=== PATIENT | male | born 1940 | race Caucasian/White ===

== ENCOUNTER 2023-04-16 13:43 | Outpatient (OUT) | payer MEDICARE, OTHER, SELFPAY ==
--- NOTE | 2023-04-16 14:00 | XR_ITS ---
The [address] [address] Patient Name: KANG BRADY MRN: [id number] date: 1940 Sex: M Assigned Patient Location: Current Patient Location: [facility] Accession/Order Number: [id number] Exam Date: 04/16/2023 14:11 Report Date: 04/17/2023 01:40 At the request of: SALOME HILLS Procedure: XR abdomen 1V EXAM: XR abdomen 1V 04/16/2023 2:11 PM EDT OH001 CLINICAL STATEMENT: KIDNEY STONE COMPARISON: 04/18/2022 TECHNIQUE: Single abdominal radiograph is submitted. FINDINGS: There are right renal calculi measuring up to 4 mm. No left-sided renal calculus. Calcified phleboliths in the pelvis. The small bowel and colon are not distended. There is a nonobstructive bowel gas pattern. There is no intraperitoneal free air. There is no abnormal calcification or organomegaly detected. Atherosclerotic arteriovascular calcifications. Multilevel degenerative changes of the lumbosacral spine. IMPRESSION: Right renal calculi measuring up to 4 mm. No left-sided renal calculus. No evidence of bowel obstruction or free intraperitoneal air. Electronically authenticated by: ROMINA SCHWARTZ Date: 04/17/2023 01:40
== END 2023-04-16 13:44 ==
LOC: RAD 13:50
PROVIDERS: PCP Internal Medicine; Visit Provider Urology
DX: N20.0 Calculus of kidney (principal); N40.1 Benign prostatic hyperplasia with lower urinary tract symptoms; N52.9 Male erectile dysfunction, unspecified; N13.9 Obstructive and reflux uropathy, unspecified
CPT/HCPCS: 74018

== ENCOUNTER 2023-05-12 08:44 | Outpatient (OUT) | payer MEDICARE, OTHER, SELFPAY ==
--- NOTE | 2023-05-12 08:47 | XR_ITS ---
The [address] [address] Patient Name: KANG BRADY MRN: [id number] date: 1940 Sex: M Assigned Patient Location: [facility] Current Patient Location: [facility] Accession/Order Number: [id number] Exam Date: 05/12/2023 09:40 Report Date: 05/12/2023 09:58 At the request of: SALOME HILLS Procedure: XR chest 2V XR chest 2V COMPARISON: None. CLINICAL HISTORY: CAD TECHNIQUE: 2 views FINDINGS: There is a normal cardiac and mediastinal contour. The patient is poststernotomy. The pulmonary vascular pattern is normal. The lungs are clear and the pleural margins are sharp. Moderate hiatal hernia. There are no significant skeletal abnormalities. IMPRESSION: NO ACUTE RADIOGRAPHIC FINDINGS. Electronically authenticated by: MANDEEP DANGELO Date: 05/12/2023 09:58
--- NOTE | 2023-05-12 08:47 | ECG_ITS ---
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
[2023-05-12 09:50] LABS: Basophils Percent Auto 0.5 % (0.2-2.0); Eosinophils Absolute Auto 0.5 10^3/uL (0.0-0.7); Eosinophils Percent Auto 8.4 % (0.9-7.0); Hematocrit 45.8 % (42.0-54.0); Hemoglobin 14.4 g/dL (14.0-18.0); Immature Granulocytes Abs Auto 0.03 10^3/uL (0.00-0.03); Immature Granulocytes Pct Auto 0.5 % (0.0-0.5); Lymphocytes Absolute Auto 1.1 10^3/uL (1.2-3.8); Lymphocytes Percent Auto 19.9 % (20.5-60.0); Mean Corpuscular HGB Conc 31.4 g/dL (29.9-35.2); Mean Corpuscular Hemoglobin 30.1 pg (25.9-34.0); Mean Corpuscular Volume 95.8 fL (80.0-94.0); Monocytes Absolute Auto 0.6 10^3/uL (0.3-0.8); Neutrophils Absolute Auto 3.3 10^3/uL (1.4-6.5); Neutrophils Percent Auto 60.7 % (43.0-75.0); Platelet Count 174 10^3/uL (150-450); Red Blood Count 4.78 10^6/uL (4.70-6.10); Red Cell Distribution Width 13.7 % (11.0-15.0); White Blood Count 5.5 10^3/uL (4.0-11.0)
--- NOTE | 2023-05-12 09:53 | PM.PRESUREVA ---
History of Present Illness History of Present Illness Chief complaint: Right Kidney Stone Narrative: Patient presents for preadmission testing. The patient reports a long history of kidney stones. He states he had a yearly follow-up with Dr. Loya a few weeks ago and it was determined that he had a right-sided kidney stone. The patient states he has no urinary complaints, denies dysuria, hematuria, flank pain, or any other complaints. Review of Systems ROS Narrative REVIEW OF SYSTEMS: Negative except as stated in HPI, ten or more systems reviewed. Constitutional: No fever , chills, weakness ENT: No sore throat or epistaxis Cardiovascular: No edema, chest pain, palpitations, or activity intolerance Respiratory: No shortness of breath, cough, or wheezing Musculoskeletal: No joint pain or swelling Gastrointestinal: No abdominal pain, constipation, diarrhea, or vomiting Genitourinary: No dysuria or hematuria Neurological: No numbness, tingling, weakness, or headache Psychiatric: No mood changes PFSH PFSH Medical History (Updated 05/12/23 @ 09:25 by Bijal Pa NP) Surgical History (Updated 05/12/23 @ 09:25 by Bijal Pa NP) Family History (Updated 05/12/23 @ 09:25 by Bijal Pa NP) Other Family history of colon cancer Family history of heart disease Family history of leukemia Family history of myocardial infarction Family history of stroke Social History (Updated 05/12/23 @ 09:19 by Bijal Pa NP) Within the past year, how often did you have a drink containing alcohol: monthly or less Smoking status: Former smoker Non-prescribed substance use: denies use Highest level of school completed/degree received: high school graduate Meds Home Medications and Allergies Home Medications Medication Instructions Recorded Confirmed Type aspirin 81 mg tablet,delayed 81 mg PO DAILY 05/12/23 05/12/23 History release (Adult Aspirin Regimen) atorvastatin 10 mg tablet 10 mg PO QDAY 05/12/23 05/12/23 History cholecalciferol (vitamin D3) 25 25 mcg PO DAILY 05/12/23 05/12/23 History mcg (1,000 unit) capsule citalopram 20 mg tablet 20 mg PO QDAY 05/12/23 05/12/23 History clopidogrel 75 mg tablet 75 mg PO QDAY 05/12/23 05/12/23 History finasteride 5 mg tablet 5 mg PO QDAY 05/12/23 05/12/23 History talat (Zingiber officinalis) 250 250 mg PO DAILY 05/12/23 05/12/23 History mg capsule (talat extract) hydrochlorothiazide 12.5 mg capsule 12.5 mg PO QDAY 05/12/23 05/12/23 History melatonin 3 mg capsule 3 mg PO DAILY 05/12/23 05/12/23 History metoprolol succinate 25 mg 12.5 mg PO Q12H 05/12/23 05/12/23 History tablet,extended release 24 hr tamsulosin 0.4 mg capsule (Flomax) 0.4 mg PO DAILY 05/12/23 05/12/23 History Allergies Allergy/AdvReac Type Severity Reaction Status Date / Time No Known Drug Allergies Allergy Verified 05/12/23 09:13 Exam Narrative Exam Narrative: Constitutional: Awake, alert, comfortable, well-appearing, nontoxic, interactive, vital signs as charted Head: Normocephalic, atraumatic Neck: Supple, normal appearance, normal range of motion, no meningeal signs, no lymphadenopathy Respiratory: No respiratory distress, breath sounds clear Cardiovascular: Regular rate and rhythm, strong and regular heart tones Abdomen: Nontender, normal bowel sounds, soft, no CVA tenderness Musculoskeletal: Normal gait, no swelling or edema Skin: No rashes or induration, no lesions, only visible skin inspected Neuro: No neurological deficits, normal sensation Psychiatric: Oriented ?3, normal affect Assessment and Plan Assessment and Plan (1) Kidney stones: Plan Right ESWL scheduled with Dr. Loya 05/22/2023.
[2023-05-12 10:05] LABS: INR 1.06; Prothrombin Time 11.2 sec (9.0-11.6)
[2023-05-12 10:10] LABS: Anion Gap 9.2; BUN Creatinine Ratio 16.8; Calcium 9.6 mg/dL (8.5-10.1); Carbon Dioxide 29.5 mmol/L (21.0-32.0); Chloride 105 mmol/L (98-107); Estimated GFR (African America >60 (>=60); Estimated GFR (Non-African Ame >60 (>=60); Glucose 125 mg/dL (74-106); Potassium 4.7 mmol/L (3.5-5.1); Sodium 139 mmol/L (136-145)
== END 2023-05-12 08:45 | disposition home or self-care (01) ==
LOC: PST 08:44
PROVIDERS: PCP Internal Medicine; Visit Provider Urology
DX: Z01.810 Encounter for preprocedural cardiovascular examination (principal); Z01.812 Encounter for preprocedural laboratory examination; Z01.818 Encounter for other preprocedural examination; N20.0 Calculus of kidney; N40.0 Benign prostatic hyperplasia without lower urinary tract symptoms; E78.5 Hyperlipidemia, unspecified; I10 Essential (primary) hypertension; I25.10 Atherosclerotic heart disease of native coronary artery without angina pectoris; Z79.01 Long term (current) use of anticoagulants
CPT/HCPCS: 36415; 71046; 80048; 85025; 85610; 85730; 93005; G0463

== ENCOUNTER 2023-05-22 08:08 | Day surgery (SDC) | payer MEDICARE, OTHER, SELFPAY ==
[2023-05-12 09:21] VITALS: BP 137/73; PULSE 80; RESP 18; TEMP 36.2; O2SAT 97; BMI 29.6
[2023-05-22] VITALS (15 sets, daily range): BP systolic 73–130; BP diastolic 53–80; PULSE 58–75; RESP 10–23; TEMP 36.2; O2SAT 91–97; BMI 28.3
--- NOTE | 2023-05-22 08:00 | XR_ITS ---
The [address] [address] Patient Name: KANG BRADY MRN: [id number] date: 1940 Sex: M Assigned Patient Location: [facility] Current Patient Location: [facility] Accession/Order Number: [id number] Exam Date: 05/22/2023 08:18 Report Date: 05/22/2023 10:05 At the request of: SALOME HILLS Procedure: XR abdomen 1V EXAM: XR abdomen 1V HISTORY: kidney stone COMPARISON: None. TECHNIQUE: AP view of the abdomen. FINDINGS: Nonobstructive bowel gas pattern is noted. There punctate right renal calculi. The osseous structures are intact. XR/XR abdomen 1V IMPRESSION: Right nephrolithiasis. Electronically authenticated by: ELIAZAR KOVACS Date: 05/22/2023 10:05
[2023-05-22] MEDS: LACTATED RINGER'S SOLUTION 1,000 ML 50 ML IV (08:55)
[2023-05-22] MEDS: CEFAZOLIN SODIUM/DEXTROSE,ISO 1 GM/50 ML IV.SOLN IV (08:57)
--- NOTE | 2023-05-22 09:46 | PM.URSON ---
Urology Surgery Operative Note Operative Note Procedure Date: 05/22/23 Time Out Performed: yes Pre-op Diagnosis: right nephrolithiasis nonobstructing Post-op Diagnosis: same Procedures performed: #1. Right ESWL. Anesthesia: other (Gen. by LMA) Primary Surgeon: Puma Loya Complications: none Estimated blood loss (mL): 0 Findings: right lower pole calculi Specimens: none Drains: none Indications for Procedures: this gentleman has recurrent right nephrolithiasis. Ayush now pressents for right ESWL. He has signed an informed consent after all the risks were explained to him. Some of these risks include bleeding, perinephric hematoma, infection and anesthesia to name a few. Detailed description of Procedure: the patient was brought to the operating room and placed on the [employer] electromagnetic lithotripsy treatment table in the supine position. SCDs were placed on his lower extremities and turned on and functioning during the entire case. Timeout was done by all parties in the room. We all agreed upon the patient's identification and the planned procedures for this patient. Gen. anesthesia was administered via LMA. We then brought the treatment head to his right flank. While using fluoroscopy we identified stone in the right lower pole. This group of stones was lined up in the crosshairs. We then began applying shocks at power level II.0 and increased to a maximum of power level III.5. Intermittent fluoroscopy showed that the stones fragmented steadily. We applied a total of 3000 shocks to the right renal unit. Our last fluoroscopic image revealed no evidence of formed stone remaining. The procedure was then terminated. [facility] then [facility] and wheeled to PACU in stable condition.
--- NOTE | 2023-05-22 10:52 | PC.NURSE ---
Denies urge to void
--- NOTE | 2023-05-22 11:47 | PC.NURSE ---
URINE STRAINED, NO STONE FRAGMENT FOUND
== END 2023-05-22 11:30 | disposition home or self-care (01) ==
PROVIDERS: PCP Internal Medicine; Visit Provider Urology
PROC: (CPT 50590; principal; 2023-05-22 09:20)
DX: N20.0 Calculus of kidney (principal); N40.0 Benign prostatic hyperplasia without lower urinary tract symptoms; E78.5 Hyperlipidemia, unspecified; I10 Essential (primary) hypertension; Z79.01 Long term (current) use of anticoagulants; I25.10 Atherosclerotic heart disease of native coronary artery without angina pectoris; K21.9 Gastro-esophageal reflux disease without esophagitis; Z95.1 Presence of aortocoronary bypass graft; Z95.5 Presence of coronary angioplasty implant and graft; Z87.891 Personal history of nicotine dependence; Z79.82 Long term (current) use of aspirin; Z79.899 Other long term (current) drug therapy; N40.1 Benign prostatic hyperplasia with lower urinary tract symptoms
CPT/HCPCS: 50590; 74018; J2704

== ENCOUNTER 2023-07-04 09:54 | Outpatient (OUT) | payer MEDICARE, OTHER, SELFPAY ==
--- NOTE | 2023-07-04 10:35 | CA_ITS ---
Patient: KANG BRADY Exam Date: 07/04/2023 : 1940 Gender:M Ordering : DR SUMAN DAVIS M.D. Admission #: [id number] Family : DR Timbo Pittman.French Order #: [id number] CLICK HERE TO VIEW EXAM ECHOCARDIOGRAM REPORT PROCEDURE: CA ECHO DOPPLER COMPLETE INDICATIONS: Mitral valve stenosis, Aortic valve stenosis (bioprosthetic valve), CABGx1, hypertension COMPARISON: None. DESCRIPTION: COMPLETE ECHOCARDIOGRAM Real-time transthoracic echocardiography with 2D, M-mode, spectral and color flow Doppler performed. QUALITY: Technical quality was good. LEFT VENTRICLE: Normal chamber size. Moderate concentric left ventricular hypertrophy. LV EF: Global left ventricular systolic function is normal; visually estimated ejection fraction is 60 to 65%. No significant wall motion abnormalities. DIASTOLIC: Grade 2, moderate diastolic dysfunction. ATRIAL SEPTUM: Visually appears intact. LEFT ATRIUM: Mild dilatation. RIGHT ATRIUM: Normal chamber size. RIGHT VENTRICLE: Normal chamber size. Normal right ventricular systolic function. TRICUSPID VALVE: Normal mobility and thickness. No stenosis with mild regurgitation. No evidence of pulmonary hypertension. RVSP 23 mmHg MITRAL VALVE: Moderately thickened with decreased mobility. Mild mitral valve stenosis. E/E' suggests volume overload state. Moderate mitral annular calcification. Mild mitral regurgitation. AORTIC VALVE: Bio-Prosthetic valve appears well seated in the aortic position with abnormal Doppler flow. Valve leaflets appear calcified. Doppler velocity suggests mild aortic valve stenosis. DVI 0.4, AURELIA 1.8 cm2. No aortic regurgitation. AORTIC ROOT: Normal diameter and appearance. PULMONIC VALVE: Normal thickness and mobility. No stenosis. Trivial regurgitation. PERICARDIUM: No evidence of pericardial effusion. IVC: Collapses with inspirations. CONCLUSION: 1. Global left ventricular systolic function is normal; visually estimated ejection fraction 60 to 65% 2. Moderate left ventricular hypertrophy 3. Grade 2, moderate diastolic dysfunction 4. The right ventricle is normal in size and systolic function 5. The left atrium is mildly dilated 6. Mild tricuspid regurgitation 7. Mild mitral valve stenosis, mild mitral valve regurgitation 8. A bioprosthetic aortic valve is seen; mild bioprosthetic aortic valve stenosis 9. E/E' suggests volume overload state Adult Echocardiography Procedure Report Left Ventricle LVEDD (3.7 - 5.6 cm): 4.40 cm LVESD (2.2 - 4.0 cm): 2.06 cm LVIVS thickness (0.6 - 1.2 cm): 1.57 cm LVPW thickness (0.5 - 1.0 cm): 1.18 cm e': 0.03 m/s E - e': 34.63 LVOT Max Gradient: 3.93 mm[Hg] LVOT Area (cm2): 0.99 m/s Peak Velocity (LVOT): 0.99 m/s Mean Velocity (LVOT): 0.71 m/s LVOT Diameter 2.16 cm Left Atrium LA Volume Index (2D A2C): 40.60 ml/m2 Left Atrium Systolic Dimension: 4.07 cm Mitral Valve MV E to A Ratio: 0.78 Mitral Valve A-Wave Peak Velocity: 1.48 m/s Mitral Valve E-Wave Peak Velocity: 1.16 m/s Right Ventricle Aorta AO Root Diam: 3.19 cm Ascending Ao Diam: 3.24 cm Aortic Valve AoV Area (Peak Brady): 1.64 cm2, 1.64 cm2 AoV Area (VTI): 1.80 cm2, 1.80 cm2 Peak Velocity(Antegrade Flow): 2.21 m/s Peak Gradient(Antegrade Flow): 19.53 mm[Hg] Mean Velocity(Antegrade Flow): 1.44 m/s Mean Gradient(Antegrade Flow): 9.80 mm[Hg] Velocity Time Integral: 46.97 cm Tricuspid Valve Peak Velocity (Regurgitant Flow): 2.24 m/s, 2.22 m/s, 2.43 m/s Pulmonic Valve Mean Gradient: 1.74 mm[Hg], 1.67 mm[Hg] Mean Velocity: 0.62 m/s, 0.60 m/s Peak Velocity: 0.91 m/s, 0.80 m/s Peak Gradient: 2.59 mm[Hg], 3.55 mm[Hg], 3.08 mm[Hg] Right Atrium Right Atrium Systolic Pressure: 46.26 ml, 46.26 ml Dictated by: Suman Davis M.D. on 07/04/2023 at 15:06 Approved by: Suman Davis M.D. on 07/04/2023 at 15:13
== END 2023-07-04 09:55 | disposition home or self-care (01) ==
LOC: CARD 09:56
PROVIDERS: PCP Internal Medicine; Visit Provider Internal Medicine Interventional Cardiology
DX: I08.0 Rheumatic disorders of both mitral and aortic valves (principal)
CPT/HCPCS: 93306

== ENCOUNTER 2023-07-21 10:59 | Outpatient (OUT) | payer MEDICARE, OTHER, SELFPAY ==
--- NOTE | 2023-07-21 11:15 | XR_ITS ---
The [address] [address] Patient Name: KANG BRADY MRN: [id number] date: 1940 Sex: M Assigned Patient Location: LAB Current Patient Location: LAB Accession/Order Number: [id number] Exam Date: 07/21/2023 11:10 Report Date: 07/21/2023 12:32 At the request of: SALOME H[place]S Procedure: XR abdomen 1V EXAM: XR abdomen 1V HISTORY: Kidney Stone N20.0 COMPARISON: 05/22/2023 TECHNIQUE: AP view of the abdomen. FINDINGS: Nonobstructive bowel gas pattern is noted. Punctate right renal calculi. The osseous structures are intact. XR/XR abdomen 1V IMPRESSION: No significant change from the prior exam. Right punctate nephrolithiasis. Electronically authenticated by: ELIAZAR KOVACS Date: 07/21/2023 12:32
== END 2023-07-21 11:00 | disposition home or self-care (01) ==
LOC: LAB 11:01
PROVIDERS: PCP Internal Medicine; Visit Provider Urology
DX: N20.0 Calculus of kidney (principal)
CPT/HCPCS: 74018

== ENCOUNTER 2023-07-22 12:36 | Outpatient (OUT) | payer MEDICARE, OTHER, SELFPAY ==
[2023-07-22 12:54] LABS: Calcium Urine Random 9.1 mg/dL (5.1-21.0); Creatinine Urine Random 59.03 mg/dL (20.00-300.00); Sodium Urine Random 111 mmol/L (30-90)
[2023-07-22 12:55] LABS: Calcium 24 Hour Urine 195.7 mg/24hr (100.0-300.0); Sodium 24 Hour Urine 239 mmol/24h (40-220); Total Volume 24 Hour Urine 2150 mL/24hr
[2023-07-22 13:14] LABS: Calcium 9.2 mg/dL (8.5-10.1); Carbon Dioxide 29.7 mmol/L (21.0-32.0); Chloride 104 mmol/L (98-107); Estimated GFR (African America >60 (>=60); Estimated GFR (Non-African Ame 58 (>=60); Potassium 3.9 mmol/L (3.5-5.1); Sodium 138 mmol/L (136-145); Uric Acid 6.3 mg/dL (3.5-7.2)
[2023-07-23 08:16] LABS: Uric Acid, Urine 21.4 mg/dL (Not Estab.); Uric Acid,Urine 24hr 460.1 mg/24 hr (136.1-771.1)
[2023-07-23 12:09] LABS: Magnesium, U 3.5 mg/dL (Not Estab.); Magnesium,Urine 24hr 75.3 mg/24 hr (12.0-293.0); Phosphorus, Urine 36.6 mg/dL (Not Estab.); Phosphorus,Urine 24h 787 mg/24 hr (210-888)
[2023-07-23 14:10] LABS: PTH, Intact 29 pg/mL (15-65)
[2023-07-25 00:08] LABS: Citric Acid, U, 24hr 757 mg/24 hr (320-1240); Citric Acid, Urine 352 mg/L (Undefined)
[2023-07-25 17:14] LABS: Oxalates, Urine 9 mg/L (Undefined); Oxalates, Urine 24hr 19 mg/24 hr (7-44)
== END 2023-07-22 12:37 | disposition home or self-care (01) ==
LOC: LAB 12:36
PROVIDERS: PCP Internal Medicine; Visit Provider Urology
DX: N20.0 Calculus of kidney (principal)
CPT/HCPCS: 36415; 82310; 82340; 82374; 82435; 82507; 82565; 82570; 83735; 83945; 83970; 84105; 84132; 84295; 84300; 84520; 84550; 84560

== ENCOUNTER 2023-10-07 09:18 | Outpatient (OUT) | payer MEDICARE, OTHER, SELFPAY ==
--- NOTE | 2023-10-07 09:20 | MR_ITS ---
[address] [address] Patient Name: KANG BRADY MRN: [id number] date: 1940 Sex: M Assigned Patient Location: MRI Current Patient Location: MRI Accession/Order Number: [id number] Exam Date: 10/07/2023 09:42 Report Date: 10/07/2023 15:20 At the request of: JEIMY ABAD Procedure: MR lumbar spine wo con EXAM: MRI of the lumbar spine without IV gadolinium contrast. 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 No spinal canal mass, hematoma or fluid collection. Lumbar spine degenerative changes with grade 1 anterolisthesis of L5 on S1. Mild posterior disc bulge at the L2-L3 and L3-L4 levels. Small L4-5 and L5-S1 posterior disc protrusions. L4-5 degenerative disc space narrowing. Mild to moderate L3-L4 spinal canal stenosis. Mild L4-5 spinal canal stenosis. Mild left L5-S1 lateral recess stenosis. No other substantial spinal canal stenoses. Mild right L1-L2 and L2-L3 neural foraminal stenoses. Mild to moderate right L3-L4, L4-5 and L5-S1 neural foraminal stenoses. Mild left L1-L2 and L2-L3 neural foraminal stenoses. Mild to moderate left L3-L4 neural foraminal stenosis. Moderate left L4-5 neural foraminal stenosis. Severe left L5-S1 neural foraminal stenosis. Remainder unremarkable. MR/MR lumbar spine wo con IMPRESSION: 1. No acute lumbar spine abnormalities. 2. Mild to moderate L3-L4 spinal canal stenosis. 3. Severe left L5-S1 neural foraminal stenosis. 4. Moderate left L3-L4 and L4-5 neural foraminal stenoses. Electronically authenticated by: ANNEL MANCINI Date: 10/07/2023 15:20
== END 2023-10-07 09:19 | disposition home or self-care (01) ==
LOC: MRI 09:18
PROVIDERS: PCP Internal Medicine; Visit Provider Internal Medicine
DX: M47.16 Other spondylosis with myelopathy, lumbar region (principal); M21.372 Foot drop, left foot; M48.061 Spinal stenosis, lumbar region without neurogenic claudication; M48.07 Spinal stenosis, lumbosacral region
CPT/HCPCS: 72148

== ENCOUNTER 2023-12-26 08:33 | Outpatient (OUT) | payer MEDICARE, OTHER, SELFPAY ==
--- OUTSIDE RECORDS SUMMARY | 2023-12-26 08:40 | XMS_ITS | CCD ---
Author Name Unknown Address [address] [place] [address] Organization [facility] Care Team Providers Care Dementia Program Director Name Role Phone TIMBO BAIG Primary Care Physician DO Timbo Baig Primary Care Provider MD Jaylon Finnegan Attending Provider [phone] Niya Baker Unavailable Timbo Baig Unavailable JOVANNI, DR MUNSON Admitting Unavailable JOVANNI, DR MUNSON Attending Unavailable JOVANNI, DR MUNSON Primary Care Unavailable JOVANNI, DR MUNSON Consulting Unavailable JOVANNI, DR MUNSON Admitting Unavailable JOVANNI, DR MUNSON Attending Unavailable JOVANNI, DR MUNSON Primary Care Unavailable TITA JJ Admitting Unavailable PARVIZ, TITA Attending Unavailable JOVANNI, DR MUNSON Primary Care Unavailable TITA JJ Consulting Unavailable JOVANNI, DR MUNSON Admitting Unavailable JOVANNI, DR MUNSON Attending Unavailable JOVANNI, DR MUNSON Primary Care Unavailable JOVANNI, DR MUNSON Consulting Unavailable REINIER ., DR MCMAHON Admitting Unavailable REINIER ., DR MCMAHON Attending Unavailable JOVANNI, DR MUNSON Primary Care Unavailable REINIER ., DR MCMAHON Consulting Unavailable BEREA, DR IVY Jenkins Consulting Unavailable ANDERSON Ann Attending Provider DO Timbo Baig Primary Care Provider [phone] FREEMAN Baker Attending Provider Jaylon Finnegan Unavailable DO Timbo Baig Primary Care Provider [phone] FREEMAN Baker Attending Provider Niya Baker Admitting Unavailable Niya Baker Attending Unavailable Jovanni, Timbo Primary Care Unavailable Niya Baker Admitting Unavailable Niya Baker Attending Unavailable Timbo Baig Primary Care Unavailable Puma LOYA Attending Unavailable Puma LOYA Attending Unavailable Puma LOYA Attending Unavailable Puma LOYA Attending Unavailable ILENE DAVIS Attending Unavailable TITA JJ Attending Unavailable Allergies Allergy Classification Reported Allergen(s) Allergy Type Date of Onset Reaction(s) Facility (1 source) patient allergy list reviewed by nurse or physicia Propensity to adverse reactions Comment:Done [employer] Other (1 source) No Known Medication Allergies; Translations: [No Known Medication Allergies] Propensity to adverse reactions (disorder) [facility] Repository Medications Current Medications Medication Drug Class(es) Dates Sig (Normalized) Sig (Original) aspirin 81 mg oral tablet (12 sources) Platelet Aggregation Inhibitor, Nonsteroidal Anti-inflammatory Drug Start: 05-17-2019 take 1 mg by mouth once daily aspirin 81 mg oral tablet mg tab(s), Oral, Daily, Refills(s) 0 Start Date: 05/17/19 Status: Ordered take 1 tablet by sarah every twenty-four hours Aspirin 81 MG 1 tablet Orally Once a day Active atorvastatin 10 mg oral tablet (10 sources) HMG-CoA Reductase Inhibitor Start: 04-21-2023 atorvastatin 10 mg Tab Refills(s) 0 Start Date: 04/21/23 Status: Ordered citalopram 20 mg oral tablet (5 sources) Serotonin Reuptake Inhibitor Start: 05-17-2019 take 1 tablet by mouth once daily CeleXA 20 mg Tab 20 mg = 1 tab(s), Oral, Daily, Refills(s) 0, Depression Start Date: 05/17/19 Status: Ordered take 1 tablet by mouth every twe nty-four hours clopidogrel 75 mg oral tablet (14 sources) P2Y12 Platelet Inhibitor Start: 05-17-2019 take 1 tablet by mouth once daily Plavix 75 mg Tab 75 mg = 1 tab(s), Oral, Daily, Refills(s) 0, Blood Thinner Start Date: 05/17/19 Status: Ordered finasteride 5 mg oral tablet (5 sources) 5-alpha Reductase Inhibitor Start: 10-31-2021 take 1 tablet by mouth once daily finasteride 5 mg Tab 5 mg = 1 tab(s), Oral, Daily, # 90 tab(s), Refills(s) 3, Pharmacy: [facility], 152, cm, 04/19/22 10:18:00 EDT, Height/Length Dosing, 89.2, kg, 04/19/22 10:18:00 EDT, Weight Dosing Start Date: 02/12/23 Status: Ordered Finasteride Acti ve hydroCHLOROthiazide 12.5 mg oral capsule (13 sources) Thiazide Diuretic Start: 08-25-2023 take 1 capsule by mouth once daily hydrochlorothiazide 12.5 mg Cap 12.5 mg = 1 cap(s), Oral, Daily, # 90 cap(s), Refills(s) 3, Pharmacy: [facility], 178, cm, 08/25/23 12:26:00 EDT, Height/Length Dosing, 90, kg, 08/25/23 12:26:00 EDT, Weight Dosing Start Date: 08/25/23 Status: Ordered Start: 12-28-2021 take 1 capsule by mo [facility] once daily hydrochlorothiazide 12.5 mg Cap 12.5 mg = 1 cap(s), Oral, Daily, # 90 cap(s), Refills(s) 3, Pharmacy: [facility], 152, cm, 08/27/21 10:12:00 EDT, Height/Length Dosing, 89, kg, 08/27/21 10:12:00 EDT, Weight Dosing Start Date: 12/28/21 Status: Ordered Start: 10-31-2021 take 12.5 mg by mout h once daily Hydrochlorothiazide Active 12.5 MG PO Daily October 31, 2021 1:00am metoprolol tartrate 25 mg oral tablet (13 sources) beta-Adrenergic Marilyn Start: 10-31-2021 take 25 mg by mouth once daily Metoprolol Tartrate Active 25 MG PO Daily October 31, 2021 1:00am Start: 05-17-2019 metoprolol 25 mg ER Tab 12.5 mg = 0.5 tab(s), Oral, BID, Refills(s) 0, High blood pressure Start Date: 05/17/19 Status: Ordered take 1 tablet by sarah once daily Metoprolol Succinate ER 25 MG 1 tablet Orally Once a day Active Metoprolol Tartr ate 25 MG TAKE 1/2 TABLET TWICE A DAY for 90 Active Multi Vitamin+ (2 sources) Start: 12-20-2019 Multi Vitamin+ Refill(s) 0 Start Date: 12/20/19 Status: Ordered simvastatin 20 mg oral tablet (4 sources) HMG-CoA Reductase Inhibitor Start: 05-17-2019 take 20 mg by mouth at bedtime Simvastatin Active 20 MG PO bedtime October 31, 2021 1:00am take 1 tablet by mouth every twe nty-four hours tamsulosin hydrochloride 0.4 mg oral capsule (3 sources) alpha-Adrenergic Marilyn Start: 08-25-2023 take 1 capsule by mouth once daily tamsulosin 0.4 mg Cap 0.4 mg = 1 cap(s), Oral, Daily, # 90 cap(s), Refills(s) 3, Pharmacy: [facility], 178, cm, 08/25/23 12:26:00 EDT, Height/Length Dosing, 90, kg, 08/25/23 12:26:00 EDT, Weight Dosing Start Date: 08/25/23 Status: Ordered take 1 capsule by mouth every tw enty-four hours Problems Active Problems Problem Classification Problem Date Documented Date Episodic/Chronic Acquired foot deformities (3 sources) Foot drop, left foot Episodic Adjustment disorders (5 sources) 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; Translations: [Mixed disorders as reaction to stress] Onset: 09-15-2018 Chronic Calculus of urinary tract (20 sources) Kidney stone; Translations: [Calculus of kidney] Onset: 07-22-2016 Episodic Congestive heart failure; nonhypertensive (2 sources) Acute on chronic diastolic (congestive) heart failure; Translations: [Acute on chronic diastolic (congestive) heart failure] Onset: 12-17-2023 Chronic Coronary atherosclerosis and other heart disease (20 sources) Coronary arteriosclerosis; Translations: [Atherosclerotic heart disease of platinum coronary artery without angina pectoris] Onset: 09-15-2018 05-17-2019 Chronic Coronary atherosclerosis and other heart disease (1 source) Coronary atherosclerosis and other heart disease; Translations: [Atherosclerosis of platinum arteries of extremities with intermittent claudication, bilateral legs] Onset: 09-04-2023 Disorders of lipid metabolism (20 sources) Pure hypercholesterolemia; Translations: [Pure hypercholesterolemia, unspecified] Onset: 09-15-2018 Chronic Diverticulosis and diverticulitis (5 sources) Diverticulitis of colon; Translations: [Diverticulitis of intestine, part unspecified, without perforation or abscess without bleeding] Onset: 09-15-2018 Chronic Esophageal disorders (2 sources) Gastroesophageal reflux disease 05-17-2019 Chronic Genitourinary symptoms and ill-defined conditions (20 sources) Delay when starting to pass urine; Translations: [Increased frequency of urination] Onset: 07-22-2016 Resolved: 04-16-2019 05-17-2019 Episodic Heart valve disorders (20 sources) History of aortic valve replacement; Translations: [Presence of prosthetic heart valve] Onset: 07-09-2022 Chronic Hyperplasia of prostate (20 sources) Benign prostatic hypertrophy with outflow obstruction; Translations: [Benign prostatic hyperplasia with lower urinary tract symptoms] Onset: 10-27-2015 Chronic Miscellaneous mental health disorders (11 sources) Male erectile disorder; Translations: [Erectile dysfunction] Onset: 04-19-2022 Chronic Mood disorders (18 sources) Mild recurrent major depression; Translations: [Major depressive disorder, recurrent, mild] Onset: 09-18-2018 Chronic Occlusion or stenosis of precerebral arteries (20 sources) Bilateral stenosis of carotid arteries; Translations: [Occlusion and stenosis of bilateral carotid arteries] Onset: 09-18-2018 Resolved: 04-29-2022 Chronic Other aftercare (9 sources) H/O: high risk medication; Translations: [Other residential (current) drug therapy] Episodic Other aftercare (5 sources) Long-term current use of drug therapy; Translations: [Other residential (current) drug therapy] Episodic Other and unspecified benign neoplasm (6 sources) Benign neoplasm of colon; Translations: [Benign neoplasm of sigmoid colon] Episodic Other and unspecified benign neoplasm (3 sources) Benign neoplasm of sigmoid colon; Translations: [Adenomatous polyp of sigmoid colon] Episodic Other and unspecified benign neoplasm (5 sources) Benign neoplasm of sigmoid colon; Translations: [Benign neoplasm of sigmoid colon] Episodic Other connective tissue disease (5 sources) Muscle pain; Translations: [MYALGIA, UNSPECIFIED SITE] Episodic Other diseases of kidney and ureters (7 sources) Cyst of kidney; Translations: [Cyst of kidney, acquired] Episodic Other diseases of kidney and ureters (2 sources) Cyst of kidney, acquired; Translations: [Renal cyst] Episodic Other diseases of kidney and ureters (5 sources) Acquired renal cystic disease; Translations: [Cyst of kidney, acquired] Episodic Other diseases of veins and lymphatics (9 sources) Peripheral venous insufficiency; Translations: [Venous insufficiency (chronic) (peripheral)] Episodic Other diseases of veins and lymphatics (4 sources) Venous insufficiency (chronic) (peripheral) Episodic Other ear and sense organ disorders (5 sources) Hearing loss; Translations: [Unspecified hearing loss, unspecified ear] Onset: 09-15-2018 Chronic Other ear and sense organ disorders (4 sources) Impacted cerumen; Translations: [Impacted cerumen, left ear] Episodic Other ear and sense organ disorders (1 source) Impacted cerumen, left ear; Translations: [Impacted cerumen, left ear] Episodic Other endocrine disorders (2 sources) Male hypogonadism 05-17-2019 Chronic Other injuries and conditions due to external causes (5 sources) History of fall; Translations: [History of falling] Episodic Other male genital disorders (2 sources) Impotence 05-17-2019 Chronic Other nutritional; endocrine; and metabolic disorders (4 sources) Overweight; Translations: [Overweight] Episodic Other nutritional; endocrine; and metabolic disorders (4 sources) Overweight; Translations: [Overweight] Episodic Peripheral and visceral atherosclerosis (20 sources) 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; Translations: [Atherosclerosis of platinum arteries of extremities with intermittent claudication, bilateral legs] Onset: 09-15-2018 Chronic Residual codes; unclassified (2 sources) H/O: anticoagulant therapy 05-17-2019 Episodic Spondylosis; intervertebral disc disorders; other back problems (18 sources) Lumbar spondylosis with myelopathy; Translations: [Other spondylosis with myelopathy, lumbar region] Chronic Sprains and strains (5 sources) Low back strain; Translations: [Strain of muscle, fascia and tendon of lower back, initial encounter] Episodic Unclassified (1 source) Occlusion and stenosis of bilateral carotid arteries; Translations: [Occlusion and stenosis of bilateral carotid arteries] Onset: 05-01-2023 Past or Other Problems Problem Classification Problem Date Documented Da te Episodic/Chronic Abdominal hernia (5 sources) Inguinal hernia; Translations: [Unilateral inguinal hernia, without obstruction or gangrene, not specified as recurrent] Onset: 09-15-2018 Episodic Anal and rectal conditions (5 sources) Stenosis of rectum and anus; Translations: [Stenosis of rectum and anus] Onset: 09-15-2018 Episodic Deficiency and other anemia (4 sources) Anemia due to chronic blood loss; Translations: [Iron deficiency anemia secondary to blood loss (chronic)] Resolved: 07-13-2021 Chronic Deficiency and other anemia (1 source) Iron deficiency anemia secondary to blood loss (chronic); Translations: [Iron deficiency anemia secondary to blood loss (chronic)] Resolved: 07-13-2021 Chronic Immunizations and screening for infectious disease (6 sources) Suspected disease caused by 2019-nCoV; Translations: [Suspected COVID-19 virus infection] Onset: 02-19-2019 11-04-2021 Episodic Inflammatory conditions of male genital organs (2 sources) Prostatitis Resolved: 05-17-2019 05-17-2019 Episodic Malaise and fatigue (5 sources) Malaise and fatigue; Translations: [Other malaise and fatigue] Onset: 02-19-2019 Episodic Mood disorders (1 source) Mood disorders; Translations: [Major depressive disorder, recurrent episode, mild] Onset: 09-18-2018 Other aftercare (5 sources) Other long goods drier (current) drug therapy; Translations: [OTH 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] Onset: 09-25-2022 Episodic Other and unspecified benign neoplasm (5 sources) Polyp of colon; Translations: [Polyp of colon] Onset: 09-15-2018 Episodic Other circulatory disease (5 sources) Elevated blood-pressure reading without diagnosis of hypertension; Translations: [Elevated blood pressure reading without diagnosis of hypertension] Onset: 09-15-2018 Episodic Other connective tissue disease (4 sources) Myalgia, unspecified site; Translations: [MYALGIA UNSPECIFIED SITE] Onset: 04-27-2022 Episodic Other ear and sense organ disorders (5 sources) Disorder of external ear; Translations: [Other specified disorders of right external ear] Resolved: 09-21-2020 Episodic Other gastrointestinal disorders (5 sources) Constipation; Translations: [Other constipation] Onset: 09-15-2018 Episodic Other gastrointestinal disorders (4 sources) Disorder of digestive system; Translations: [Personal history of other diseases of digestive disease] Onset: 09-15-2018 Episodic Other lower respiratory disease (4 sources) Orthopnea; Translations: [Orthopnea] Onset: 09-15-2018 Episodic Other lower respiratory disease (1 source) Orthopnea; Translations: [Orthopnea] Onset: 09-15-2018 Episodic Other screening for suspected conditions (not mental disorders or infectious disease) (1 source) Encounter for screening for malignant neoplasm of colon; Translations: [Encounter for screening for malignant neoplasm of colon] Onset: 09-18-2018 Episodic Other upper respiratory infections (7 sources) Viral upper respiratory tract infection; Translations: [Acute upper respiratory infection, unspecified] Onset: 07-14-2019 04-12-2023 Episodic Residual codes; unclassified (5 sources) H/O: risk factor; Translations: [Other specified personal history presenting hazards to health] Onset: 09-15-2018 Episodic Screening and history of mental health and substance abuse codes (8 sources) Ex-smoker; Translations: [History of tobacco use] Onset: 09-15-2018 05-17-2019 Episodic Spondylosis; intervertebral disc disorders; other back problems (4 sources) Backache; Translations: [Unspecified backache] Onset: 09-15-2018 Episodic Unclassified (1 source) Personal history of other diseases of digestive disease; Translations: [Personal history of other diseases of digestive disease] Onset: 09-15-2018 Unclassified (1 source) Unspecified backache; Translations: [Unspecified backache] Onset: 09-15-2018 Results Test Name Value Interpretation Reference Range Facility 37on 12-17-2023 37 *Start taking lasix 40mg daily along with potassium supplements. *Have labs done around 12/26/2023. *Monitor your weight daily, first thing in the morning after you use the bathroom and before you eat breakfast. *Try to not drink more than 2000ml of fluids a day *Limit sodium/salt intake Normal [facility] Urology Office/Clinic Noteon 10-22-2023 Urology Office/Clinic Note Chief Complaint kidney stone and BPH with urinay obstruction HPI Staff 83 yo male here for 3 month f/u with metabolic workup and KUB. Previous Dx: kidney stone, BPH with obstruction. S/p R ESWL 05/22/23. KUB done 07/21/23 at [facility]. Metabolic workup done 07/22/23. Taking HCTZ 12.5mg qd and Finasteride 5mg qd. Dysuria: no Incomplete bladder emptying: no Hematuria: no Frequency: no Urgency: no Nocturia: pt states that he does not get up Stream: some hesitation getting started sometimes Leaking: no Post void dripping: no Wearing pads/ Depends: no Urge incontinence: no Stress incontinence: no Incontinence without Sensory Awareness: no Abdominal pain: no Flank pain: no Sexual complaints: no History of Present Illness Tests reviewed: reviewed UA, Metabolic Workup, and KUB. I have reviewed the previous health record information and history for this patient from . I have reviewed and verified the staff HPI to be accurate for this encounter. There have been no associated fever, chills, flank pain, or blood in the urine. Denies any urinary infections since last encounter. Review of Systems PHQ Score Initial Depression Screen Score: 0 ROS - Provider Constitutional: denies weight loss, denies hot flashes. Eyes: denies eye problems. Gastrointestinal: denies nausea, denies vomiting. Cardiovascular: denies chest pain or angina. Integumentary: no dryness Musculoskeletal: denies musculoskeletal symptoms. ENMT: denies otolaryngeal symptoms. Respiratory: no shortness of breath. Heme/Lymph: denies easy bleeding tendency, denies easy bruising tendency. Psychiatric: no confusion, no anxiety. Genitourinary: See HPI. Physical Exam Vitals & Measurements HR: 80(Peripheral) RR: 16 BP: 137/82 HT: 70 in HT: 178 cm WT: 90 kg WT: 198 lb BMI: 28.41 General Appearance: alert, no distress, well nourished, well developed male. Assessment/Plan 1. Kidney stone (N20.0: Calculus of kidney) KUB 08/30/20 - Stable R stones, largest measuring 5 mm over the LP. No L stones. R ESWL 08/31/20. KUB 06/22/21 - Multiple small R stones changed in configuration from the prior exam suggesting interval lithotripsy. No L stones. KUB 04/18/22 - Multiple punctate R stones, stable. No L stones. KUB 04/16/23 - Right renal calculi, measuring up to 4 mm. No L sided stones. Image not viewable. S/p Rt ESWL 05/22/23 Metabolic Workup 07/22/23 - sodium in the urine was slightly elevated, volume is low KUB 07/21/23 - Rt punctate nephrolithiasis Taking HCTZ 12.5 mg QD. Discussed imaging and metabolic workup results with pt, sodium is elevated and his output volume was slightly lower than recommended. Advised pt that he needs to start a low salt diet. and try to increase his fluid intake. Pt states that he doesn't know how much he drinks throughout the day, feels like he drinks quite a bit, drinks lemonade a lot, probably not enough water. Advised pt that the dietary modifications are needed to prevent future stones. Pt states that he can try doing this. Pt asked if coffee contributes to stones. Advised pt that coffee could for some people, but not in his case. Will continue to monitor. Follow up in 1 yr w/KUB. All questions/concerns were discussed. Pt to call the office if he encounters any issues prior. Pt acknowledges understanding. -Will order KUB. -Cont taking HCTZ as above. -Dietary modifications. 2. BPH with urinary obstruction (N40.1: Benign prostatic hyperplasia with lower urinary tract symptoms) UA today negative for blood and infection. Taking Finasteride 5 mg QD. Doing well on this med. No urinary complaints. Pt asked if he could start Tamsulosin again. Advised pt that if he felt this is needed, then we can send a script today. -Will start Tamsulosin 0.4mg QD. Discussed the medication side effects, and the patient will monitor closely for these, as well as for symptom improvement. If severe side effects occur, the medication should be stopped and the office notified. Follow-up With When Contact Information REINIER HUSAIN, RAUL Armando In 1 year [facility] [address], [place] [address]- Additional Instructions: w/KUB Patient Education Dietary Guidelines to Help Prevent Kidney Stones I, Leelee Ventura , personally scribed for Dr. Loya on 08/25/2023 13:30:29. . Problem List/Past Medical History Ongoing BPH with urinary obstruction CAD (coronary artery disease) Former smoker GERD (gastroesophageal reflux disease) Hx of long goods drier use of blood thinners Impotence Kidney stone Male hypogonadism Historical Nocturia Prostatitis Urinary hesitancy Urine frequency Procedure/Surgical History ESWL of kidney (05/22/2023), ESWL of kidney (08/31/2020), Cystoscopy (05/23/2020), Cystoscopic removal of ureteric stent (06/17/2019), Cystoscopic insertion of ureteric stent (06/10/2019), ESWL - Extracorporeal shockwave li (more content not included)... Normal [facility] Comment on above: Result Comment: Elec tronically Signed By: Puma LOYA MD\.br\Date and Time Signed: 10/22/23 13:49 EST\.br\Electronically Co-Signed By: Leelee Ventura\.br\Date and Time Co-Signed: 08/25/23 13:30 EDT US ankle/arm indiceson 09-04 US ankle/arm indices [facility] [place] [address] [place] [address] Ultrasound Report Signed Patient: Kang Brady MR#: [id number] 11 : 1940 Acct:[id number] Age/Sex: 83 / M ADM Date: 09/04/23 Loc: 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 PROCEDURE: Right arm blood pressure is 127 , left is 144 . Pressures of the right leg are 129 at the ankle using the posterior tibial artery and 124 at the ankle using the dorsalis pedis artery with ankle-brachial index of 0.86 0.90 . Pressures of the left leg are 115 at the ankle using the posterior tibial artery and 111 at the ankle using the dorsalis pedis artery with ankle-brachial index of 0.77 0.80 . Wave forms by plethysmography are biphasic in the right lower extremity and biphasic in the left lower extremity. 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 Impression dictated by: Jaylon Finnegan MD09/04/2023 1:02 PM Dictation Location: [id number] Tech: Pam Richardskins Transcribed By: DANIEL 09/04/23 1302 Dictated By: Jaylon Finnegan MD 09/04/23 1301 Signed By: 09/04/23 1302 [facility] Patient Educationon 08-25-20 Patient Education Nephrology Dietary Guidelines to Help Prevent Kidney Stones Kidney stones are deposits of minerals and salts that form inside your kidneys. Your risk of developing kidney stones may be greater depending on your diet, your lifestyle, the medicines you take, and whether you have certain medical conditions. Most people can lower their chances of developing kidney stones by following the instructions below. Your dietitian may give you more specific instructions depending on your overall health and the type of kidney stones you tend to develop. What are tips for following this plan? Reading food labels ? Choose foods with no salt added or low-salt labels. Limit your salt (sodium) intake to less than 1,500 mg a day. ? Choose foods with calcium for each meal and snack. Try to eat about 300 mg of calcium at each meal. Foods that contain 200?500 mg of calcium a serving include: ? 8 oz (237 mL) of milk, calcium-fortifiedno n-dairy milk, and calcium-fortifiedfr uit juice. Calcium-fortified means that calcium has been added to these drinks. ? 8 oz (237 mL) of kefir, yogurt, and soy yogurt. ? 4 oz (114 g) of tofu. ? 1 oz (28 g) of cheese. ? 1 cup (150 g) of dried figs. ? 1 cup (91 g) of cooked broccoli. ? One 3 oz (85 g) can of sardines or mackerel. Most people need 1,000?1,500 mg of calcium a day. Talk to your dietitian about how much calcium is recommended for you. Shopping ? Buy plenty of fresh fruits and vegetables. Most people do not need to avoid fruits and vegetables, even if these foods contain nutrients that may contribute to kidney stones. ? When shopping for convenience foods, choose: ? Whole pieces of fruit. ? Pre-made salads with dressing on the side. ? Low-fat fruit and yogurt smoothies. ? Avoid buying frozen meals or prepared deli foods. These can be high in sodium. ? Look for foods with live cultures, such as yogurt and kefir. ? Choose high-fiber grains, such as whole-wheat breads, oat bran, and wheat cereals. Cooking ? Do not add salt to food when cooking. Place a salt shaker on the table and allow each person to add his or her own salt to taste. ? Use vegetable protein, such as beans, textured vegetable protein (TVP), or tofu, instead of meat in pasta, casseroles, and soups. Meal planning ? Eat less salt, if told by your dietitian. To do this: ? Avoid eating processed or pre-made food. ? Avoid eating fast food. ? Eat less animal protein, including cheese, meat, poultry, or fish, if told by your dietitian. To do this: ? Limit the number of times you have meat, poultry, fish, or cheese each week. Eat a diet free of meat at least 2 days a week. ? Eat only one serving each day of meat, poultry, fish, or seafood. ? When you prepare animal protein, cut pieces into small portion sizes. For most meat and fish, one serving is about the size of the palm of your hand. ? Eat at least five servings of fresh fruits and vegetables each day. To do this: ? Keep fruits and vegetables on hand for snacks. ? Eat one piece of fruit or a handful of berries with breakfast. ? Have a salad and fruit at lunch. ? Have two kinds of vegetables at dinner. ? Limit foods that are high in a substance called oxalate. These include: ? Spinach (cooked), rhubarb, beets, sweet potatoes, and [place] chard. ? Peanuts. ? Potato chips, pitcairn islander fries, and baked potatoes with skin on. ? Nuts and nut products. ? Chocolate. ? If you regularly take a diuretic medicine, make sure to eat at least 1 or 2 servings of fruits or vegetables that are high in potassium each day. These include: ? Avocado. ? Banana. ? [place], prune, carrot, or tomato juice. ? Baked potato. ? Cabbage. ? Beans and split peas. Lifestyle ? Drink enough fluid to keep your urine pale yellow. This is the most important thing you can do. Spread your fluid intake throughout the day. ? If you drink alcohol: ? Limit how much you use to: ? 0?1 drink a day for women who are not . ? 0?2 drinks a day for men. ? Be aware of how much alcohol is in your drink. In the [place] one drink equals one 12 oz bottle of beer (355 mL), one 5 oz glass of wine (148 mL), or one 1? oz glass of hard liquor (44 mL). ? Lose weight if told by your health care provider. Work with your dietitian to find an eating plan and weight loss strategies that work best for you. General information ? Talk to your health care provider and dietitian about taking daily supplements. You may be told the following depending on your health and the cause of your kidney stones: ? Not to take supplements with vitamin C. ? To take a calcium supplement. ? To take a daily probiotic supplement. ? To take other supplements such as magnesium, fish oil, or vitamin B6. ? Take wxfy-lxw-tluvzjd and prescription medicines only as told by your health care provider. These include supplements. What foods should I limit? Limit your in (more content not included)... [facility] Lab Reportson 07-29-2023 Lab Reports [id number] 5#1.00CD:127 [facility] Lab Reportson 07-28-2023 Lab Reports [id number] 4#1.00CD:127 [facility] Lab Reportson 07-24-2023 Lab Reports [id number] 8#1.00CD:127 [facility] Lab Reportson 07-23-2023 Lab Reports [id number] C3#1.00CD:127 [facility] Lab Reports [id number] BB#1.00CD:127 [facility] RAD - MISCon 07-22-2023 RAD - MISC [id number] 7#1.00CD:127 Normal [facility] Formson 2023 Forms [id number] A9#1.00CD:127 Normal [facility] RAD - MISCon 05-23-2023 RAD - MIS [id number] B3#1.00CD:127 [facility] Operative Reporton Operative Report [id number] F8#1.00CD:127 [facility] Lab Reportson 05-19-2023 Lab Reports [id number] 7F#1.00CD:127 [facility] Lab Reports [id number] 869#1.00CD:127 [facility] RAD - MISCon 05-19-2023 RAD - MIS [id number] 42#1.00CD:127 [facility] Consent for Procedure/Surger yon 05-05-2023 Consent for Procedure/Surgery [id number] 3E#1.00CD:127 [facility] Formson 05-05-2023 Forms [id number] 1#1.00CD:127 [facility] US carotid doppler BIon - US carotid doppler [facility] [place] [address] Ultrasound Report Signed Patient: Kang Brady MR#: [id number] 11 : 1940 Acct:[id number] Age/Sex: 82 / M ADM Date: 05/01/23 Loc: 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 Both carotid bifurcations show mild to moderate heterogeneous plaque formation. The proximal right internal carotid artery shows a highest peak systolic velocity of 141 cm/s with an end-diastolic velocity of 46.5 cm/s . The mid internal carotid artery measures 129 cm/s peak systolic and 45.5 cm/s end diastolic. The distal segment measures 64.6 cm/s peak systolic with an end diastolic velocity of 25.5 cm/s . The velocities of the right common carotid artery are 107 cm/s peak systolic and 19.3 cm/s end-diastolic proximally and 66.3 cm/s peak systolic and 16.2 cm/s end diastolic distally. The peak systolic velocity ratio of the internal to the common carotid artery is 1.32. The right external carotid artery measures 148 cm/s peak systolic. The right vertebral artery is patent at 61.5 cm/s with retrograde flow. The proximal left internal carotid artery shows a highest peak systolic velocity of 86.9 cm/s with an end-diastolic velocity of 23.8 cm/s . The mid internal carotid artery measures 127 cm/s peak systolic and 36.4 cm/s end diastolic. The distal segment measures 66.4 cm/s peak systolic with an end diastolic velocity of 23.6 cm/s . The velocities of the left common carotid artery are 67 cm/s peak systolic and 17.6 cm/s end-diastolic proximally and 69.8 cm/s peak systolic and 18 cm/s end diastolic distally. The peak systolic velocity ratio of the internal to the common carotid artery is 1.82 . The left external carotid artery measures 147 cm/s peak systolic. The left vertebral artery is patent at 88.2 cm/s with antegrade flow. US/US carotid doppler BI IMPRESSION: 50-69% stenosis is seen in the right extracranial internal carotid artery. Less than 50% stenosis is noted in the left extracranial internal carotid artery. The right vertebral artery is patent with retrograde flow. The left vertebral artery is patent with antegrade flow Impression dictated by: Ricky Stephens M.D.05/02/2023 10:21 AM Dictation Location: [facility] Tech: Pam Sheehan Transcribed By: DANIEL 05/02/23 1021 Dictated By: Ricky Stephens MD 05/02/23 1019 Signed By: 05/02/23 1021 [facility] RAD - MISCon 04-25-2023 RAD - MIS [id number] 1D#1.00CD:127 [facility] Ambulatory Visit Summaryon 0 04-21-2023 Ambulatory Visit Summary KANG BRADY :1940 Visit Date:04/21/2023 Ambulatory Visit Instructions Your Diagnosis Kidney stone BPH with urinary obstruction Tests Performed Urnls Dip Stick Auto w/o Microscopy POC 53452 XR Abdomen 1 View -- Results Pending -- Please visit your patient portal for your results or contact your primary care physician. Your Care Team Attending Physician - REINIER HUSAIN, Puma Jaramillo Primary Care Physician - TIMBO BAIG DO This Is Your Medications List finasteride (finasteride 5 mg Tab) Contact prescribing physician if questions or concerns aspirin (aspirin 81 mg oral tablet) atorvastatin (atorvastatin 10 mg Tab) citalopram (CeleXA 20 mg Tab) clopidogrel (Plavix 75 mg Tab) hydrochlorothiazide (hydrochlorothiazid e 12.5 mg Cap) metoprolol (metoprolol 25 mg ER Tab) multivitamin (Multi Vitamin+) Procedures Performed ESWL of kidney (08/31/2020), Cystoscopy (05/23/2020), Cystoscopic removal of ureteric stent (06/17/2019), Cystoscopic insertion of ureteric stent (06/10/2019), ESWL - Extracorporeal shockwave lithotripsy for renal calculus (04/11/2016), Lithotripsy using laser (03/25/2016), CABG - Coronary artery bypass graft (10/10/2014), Coronary artery stent (11/10/2011), Cystoscopy (09/18/2009), Cystoscopy (2002), TURP - Transurethral resection of prostate (2002), Transrectal biopsy of prostate using ultrasound guidance (2002), Cystoscopy, Hemorrhoidectomy, Hernia, Urodynamics. Discharge Vitals Heart Rate (Peripheral) 72 Respiratory Rate 16 Blood Pressure 130/82 Height 152 cm Height 60 in Weight 89 kg Weight 195.8 lb BMI 38.52 What to do next Scheduled Follow-Up Appointments Friday 10:15 AM EDT With: REINIER HUSAIN, Puma Jaramillo Where: [facility] Patient Educationon 04-21-20 Patient Education Nephrology Dietary Guidelines to Help Prevent Kidney Stones Kidney stones are deposits of minerals and salts that form inside your kidneys. Your risk of developing kidney stones may be greater depending on your diet, your lifestyle, the medicines you take, and whether you have certain medical conditions. Most people can lower their chances of developing kidney stones by following the instructions below. Your dietitian may give you more specific instructions depending on your overall health and the type of kidney stones you tend to develop. What are tips for following this plan? Reading food labels ? Choose foods with no salt added or low-salt labels. Limit your salt (sodium) intake to less than 1,500 mg a day. ? Choose foods with calcium for each meal and snack. Try to eat about 300 mg of calcium at each meal. Foods that contain 200?500 mg of calcium a serving include: ? 8 oz (237 mL) of milk, calcium-fortifiedno n-dairy milk, and calcium-fortifiedfr uit juice. Calcium-fortified means that calcium has been added to these drinks. ? 8 oz (237 mL) of kefir, yogurt, and soy yogurt. ? 4 oz (114 g) of tofu. ? 1 oz (28 g) of cheese. ? 1 cup (150 g) of dried figs. ? 1 cup (91 g) of cooked broccoli. ? One 3 oz (85 g) can of sardines or mackerel. Most people need 1,000?1,500 mg of calcium a day. Talk to your dietitian about how much calcium is recommended for you. Shopping ? Buy plenty of fresh fruits and vegetables. Most people do not need to avoid fruits and vegetables, even if these foods contain nutrients that may contribute to kidney stones. ? When shopping for convenience foods, choose: ? Whole pieces of fruit. ? Pre-made salads with dressing on the side. ? Low-fat fruit and yogurt smoothies. ? Avoid buying frozen meals or prepared deli foods. These can be high in sodium. ? Look for foods with live cultures, such as yogurt and kefir. ? Choose high-fiber grains, such as whole-wheat breads, oat bran, and wheat cereals. Cooking ? Do not add salt to food when cooking. Place a salt shaker on the table and allow each person to add his or her own salt to taste. ? Use vegetable protein, such as beans, textured vegetable protein (TVP), or tofu, instead of meat in pasta, casseroles, and soups. Meal planning ? Eat less salt, if told by your dietitian. To do this: ? Avoid eating processed or pre-made food. ? Avoid eating fast food. ? Eat less animal protein, including cheese, meat, poultry, or fish, if told by your dietitian. To do this: ? Limit the number of times you have meat, poultry, fish, or cheese each week. Eat a diet free of meat at least 2 days a week. ? Eat only one serving each day of meat, poultry, fish, or seafood. ? When you prepare animal protein, cut pieces into small portion sizes. For most meat and fish, one serving is about the size of the palm of your hand. ? Eat at least five servings of fresh fruits and vegetables each day. To do this: ? Keep fruits and vegetables on hand for snacks. ? Eat one piece of fruit or a handful of berries with breakfast. ? Have a salad and fruit at lunch. ? Have two kinds of vegetables at dinner. ? Limit foods that are high in a substance called oxalate. These include: ? Spinach (cooked), rhubarb, beets, sweet potatoes, and [place] chard. ? Peanuts. ? Potato chips, pitcairn islander fries, and baked potatoes with skin on. ? Nuts and nut products. ? Chocolate. ? If you regularly take a diuretic medicine, make sure to eat at least 1 or 2 servings of fruits or vegetables that are high in potassium each day. These include: ? Avocado. ? Banana. ? [place], prune, carrot, or tomato juice. ? Baked potato. ? Cabbage. ? Beans and split peas. Lifestyle ? Drink enough fluid to keep your urine pale yellow. This is the most important thing you can do. Spread your fluid intake throughout the day. ? If you drink alcohol: ? Limit how much you use to: ? 0?1 drink a day for women who are not . ? 0?2 drinks a day for men. ? Be aware of how much alcohol is in your drink. In the [place] one drink equals one 12 oz bottle of beer (355 mL), one 5 oz glass of wine (148 mL), or one 1? oz glass of hard liquor (44 mL). ? Lose weight if told by your health care provider. Work with your dietitian to find an eating plan and weight loss strategies that work best for you. General information ? Talk to your health care provider and dietitian about taking daily supplements. You may be told the following depending on your health and the cause of your kidney stones: ? Not to take supplements with vitamin C. ? To take a calcium supplement. ? To take a daily probiotic supplement. ? To take other supplements such as magnesium, fish oil, or vitamin B6. ? Take uyyc-mde-febdsbo and prescription medicines only as told by your health care provider. These include supplements. What foods should I limit? Limit your in (more content not included)... Normal [facility] Urology Office/Clinic Noteon 04-21-2023 Urology Office/Clinic Note Chief Complaint 1yr KUB HPI Staff 1 year f/u with KUB. Previous dx include kidney stone, BPH with urinary obstruction and impotence. Current KUB done 04/16/23 showed right renal calculus measuring up to 4mm. *HCTZ 12.5mg QD & Finasteride 5mg QD therapy. Denies pain/burning & blood in urine. Denies current urinary complaints. Denies symptoms of Kidney Stones. At this time does not want to pursue ED Tx. History of Present Illness Tests reviewed: reviewed UA, KUB. I have reviewed the previous health record information and history for this patient from Dr. Loya. I have reviewed and verified the staff HPI to be accurate for this encounter. There have been no associated fever, chills, flank pain, or blood in the urine. Denies any urinary infections since last encounter. Review of Systems PHQ Score Initial Depression Screen Score: 0 ROS - Provider Constitutional: denies weight loss, denies hot flashes. Eyes: denies eye problems. Gastrointestinal: denies nausea, denies vomiting. Cardiovascular: denies chest pain or angina. Integumentary: no dryness Musculoskeletal: denies musculoskeletal symptoms. ENMT: denies otolaryngeal symptoms. Respiratory: no shortness of breath. Heme/Lymph: denies easy bleeding tendency, denies easy bruising tendency. Psychiatric: no confusion, no anxiety. Genitourinary: See HPI. Physical Exam Vitals & Measurements HR: 72(Peripheral) RR: 16 BP: 130/82 HT: 60 in HT: 152 cm WT: 89 kg WT: 195.8 lb BMI: 38.52 General Appearance: alert, no distress, well nourished, well developed male. Genitourinary: normal scrotum, normal testes, normal urethra, normal epididymis, normal vas deferens/spermatic cord. Flank Pain: none. Bladder: nonpalpable. Assessment/Plan 1. Kidney stone (N20.0: Calculus of kidney) KUB 08/30/20 [facility] - Stable R stones, largest measuring 5 mm over the LP. No L stones. R ESWL 08/31/20. KUB 06/22/21 [facility] - Multiple small R stones changed in configuration from the prior exam suggesting interval lithotripsy. No L stones. KUB 04/18/22 [facility] - Multiple punctate R stones, stable. No L stones. KUB 04/16/23 [facility] - Right renal calculi, measuring up to 4 mm. No L sided stones. Image not viewable. Taking HCTZ 12.5 mg QD. Does not recall passing any fragments after lithotripsy. Reviewed results of KUB with pt, however, image not yet viewable. Discussed possibility of repeat R ESWL if stones are increasing in size vs cont to monitor. Will call pt if surgical intervention is recommended pending image. Follow up 1 yr KUB or sooner if needed. Pt understands and agrees with plan. Will schedule R ESWL pending KUB image. The procedure risks, benefits, details and treatment alternatives have been discussed with the patient. These include blood in the urine, infection, bleeding around the kidney, kidney bruising, inability to break up the stone, need for blood transfusion, blockage from stone fragments, and need for additional procedures, among others. Full informed consent has been obtained. Will order General anesthesia. 2. BPH with urinary obstruction (N40.1: Benign prostatic hyperplasia with lower urinary tract symptoms) UA today negative for blood and infection. Taking Finasteride 5 mg QD. Doing well on this med. No urinary complaints. Follow-up With When Contact Information REINIER HUSAIN, Puma Jaramillo, URL [facility] [address] [place] [address]- Additional Instructions: 1 yr KUB pending image Patient Education Dietary Guidelines to Help Prevent Kidney Stones I, Pastora Ding, personally scribed for Dr. Loya on 04/21/2023 10:26:37. . Documentation recorded by the scribe, Pastora Ding, accurately reflects the services(s) I performed and decisions made by me. Authenticated by Dr. Loya on 04/21/2023 10:29:44. Problem List/Past Medical History Ongoing BPH with urinary obstruction CAD (coronary artery disease) Former smoker GERD (gastroesophageal reflux disease) Hx of residential use of blood thinners Impotence Kidney stone Male hypogonadism Historical Nocturia Prostatitis Urinary hesitancy Urine frequency Procedure/Surgical History ESWL - Extracorporeal shockwave lithotripsy for renal calculus (04/11/2016), Lithotripsy using laser (03/25/2016), CABG - Coronary artery bypass graft (10/10/2014), Coronary artery stent (11/10/2011), Cystoscopy (09/18/2009), Cystoscopy (2002), TURP - Transurethral resection of prostate (2002), Transrectal biopsy of prostate using ultrasound guidance (2001), Cystoscopy, Hemorrhoidectomy, Hernia, Urodynamics. Medications aspirin 81 mg oral tablet, Oral, Daily atorvastatin 10 mg Tab CeleXA 20 mg Tab, 20 mg= 1 tab(s), Oral, Daily finasteride 5 mg Tab, 5 mg= 1 tab(s), Oral, Daily, 3 refills hydrochlorothiazide 12.5 mg Cap, 12.5 mg= 1 cap(s), Oral, Daily, 3 refills metoprolol 25 mg ER Tab, 12.5 mg= 0.5 tab(s), Oral, BID Multi Vitamin+ Plavi (more content not included)... Normal [facility] Comment on above: Result Comment: Elec tronically Signed By: Puma LOYA MD\.br\Date and Time Signed: 04/21/23 10:29 EDT\.br\Electronically Co-Signed By: Pastora Ding\.br\Date and Time Co-Signed: 04/21/23 10:26 EDT Laboratory - Microbiology an d Antimicrobial susceptibilityOrdered By: Aury Ann on 04-12-2023 S. pyogenes Ag IA Ql (Unsp spec) [facility] No Panel InformationOrdered By: Aury Ann on 04-12-2023 Flu B [facility] Office Visiton 12-23-2022 Follow-up visit [id number] Kang Brady 1940 M Date Provider Department Center 12/23/2022 ILENE RUEDA [facility] Family History Problem Relation Age of Onset No Known Problems Mother No Known Problems Father Family Status - Relation Status Age at Mother Father Level of Service:20812 CA OFFICE/OUTPATIENT ESTABLISHED LOW MDM 20-29 MIN Reason for Visit and Comments: Coronary Artery Disease [187] Hypertension [201815] Peripheral Vascular Disease [458] carotid artery stenosis [Other] Normal [facility] CBC AUTO DIFFon 09-25-2022 BASO # 0.0 103/ul Normal 0.0-0.1 [facility] Comment on above: Performed By: #### C BC #### [facility] [address] [place] [address] Dr. Giacomo Mace Basophils/100 WBC (Bld) 0.5 % Normal 0.2-2.0 [facility] Comment on above: Performed By: #### C BC #### [facility] [address] [address] [address] Giacomo Mace EO # 0.4 103/ul Normal 0.0-0.7 [facility] Comment on above: Performed By: #### C BC #### [facility] [address] [address] [address] Giacomo Mace Eosinophils/100 WBC (Bld) 7.0 % Normal 0.9-7.0 [facility] Comment on above: Performed By: #### C BC #### [facility] [address] [place] [address] Dr. Giacomo Mace Erythrocyte distribution width (RBC) [Ratio] 14.6 % Normal 11.0-15.0 [facility] Comment on above: Performed By: #### C BC #### [facility] [address] [place] [address] Dr. Giacomo Mace Hematocrit (Bld) [Volume fraction] 46.9 % Normal 42.0-54.0 [facility] Comment on above: Performed By: #### C BC #### [facility] [address] [place] [address] Dr. Giacomo Mace Hemoglobin (Bld) [Mass/Vol] 15.1 g/dL Normal 14.0-18.0 [facility] Comment on above: Performed By: #### C BC #### [facility] [address] [place] [address] Dr. Giacomo Mace IG # 0.02 10e3/ul Normal 0.00-0.03 [facility] Comment on above: Performed By: #### C BC #### [facility] [address] [place] [address] Dr. Giacomo Mace IG % 0.4 % Normal 0.0-0.5 [facility] Comment on above: Performed By: #### C BC #### [facility] [address] [place] [address] Dr. Giacomo Mace LYMPH # 1.4 103/ul Normal 1.2-3.8 [facility] Comment on above: Performed By: #### C BC #### [facility] [address] [place] [address] Dr. Giacomo Mace Lymphocytes/100 WBC (Bld) 25.3 % Normal 20.5-60.0 [facility] Comment on above: Performed By: #### C BC #### [facility] [address] [place] [address] Dr. Giacomo Mace MANUAL DIFF REQ NO Normal [facility] Comment on above: Performed By: #### C BC #### [facility] [address] [place] [address] Dr. Giacomo Mace MCH (RBC) [Entitic mass] 29.6 pg Normal 25.9-34.0 [facility] Comment on above: Performed By: #### C BC #### [facility] [address] [place] [address] Dr. Giacomo Mace MCHC (RBC) [Mass/Vol] 32.2 g/dL Normal 29.9-35.2 [facility] Comment on above: Performed By: #### C BC #### [facility] [address] [place] [address] Dr. Giacomo Mace MCV (RBC) [Entitic vol] 92.0 fL Normal 80.0-94.0 [facility] Comment on above: Performed By: #### C BC #### [facility] [address] [place] [address] Dr. Giacomo Mace MONO # 0.6 103/ul Normal 0.3-0.8 [facility] Comment on above: Performed By: #### C BC #### [facility] [address] [place] [address] Dr. Giacomo Mace Monocytes/100 WBC (Bld) 10.4 % Normal 1.7-12.0 [facility] Comment on above: Performed By: #### C BC #### [facility] [address] [place] [address] Dr. Giacomo Mace NEUT # 3.2 103/ul Normal 1.4-6.5 [facility] Comment on above: Performed By: #### C BC #### [facility] [address] [place] [address] Dr. Giacomo Mace Neutrophils/100 WBC (Bld) 56.4 % Normal 43.0-75.0 [facility] Comment on above: Performed By: #### C BC #### [facility] [address] [place] [address] Dr. Giacomo Mace Platelet mean volume (Bld) [Entitic vol] 10.5 fL Normal 9.5-13.5 [facility] Comment on above: Performed By: #### C BC #### [facility] [address] [place] [address] Dr. Giacomo Mace PLT 227 103/ul Normal 150-450 [facility] Comment on above: Performed By: #### C BC #### [facility] [address] [place] [address] Dr. Giacomo Mace RBC 5.10 106/ul Normal 4.70-6.10 [facility] Comment on above: Performed By: #### C BC #### [facility] [address] [place] [address] Dr. Giacomo Mace WBC 5.7 103/ul Normal 4.0-11.0 [facility] Comment on above: Performed By: #### C BC #### [facility] [address] [place] [address] Dr. Giacomo Mace LIPID PROFILEon 09-25-2022 CHOL-HDL RATIO NORM SEE BELOW Normal [facility] Comment on above: Result Comment: 3.3 - 4.4 LOW RISK 4.4 - 7.1 AVERAGE RISK 7.1 - 11.0 MODERATE RISK >11.0 HIGH RISK Performed By: #### B MP, LIPID #### [facility] [address] [place] [address] Dr. Giacomo Mace Cholesterol [Mass/Vol] 219 mg/dL Critically high <=200 [facility] Comment on above: Performed By: #### B MP, LIPID #### [facility] [address] [place] [address] Dr. Giacomo Mace Cholesterol in HDL [Mass/Vol] 61 mg/dL Critically high 40-60 [facility] Comment on above: Performed By: #### B MP, LIPID #### [facility] [address] [place] [address] Dr. Giacomo Mace Cholesterol in LDL [Mass/Vol] 136.4 mg/dL Normal [facility] Comment on above: Performed By: #### B MP, LIPID #### [facility] [address] [address] [address] Giacomo Mace Cholesterol.total/Cholest jose elias in HDL [Mass ratio] 3.6 {ratio} Normal [facility] Comment on above: Performed By: #### B MP, LIPID #### [facility] [address] [place] [address] Dr. Giacomo Mace HDL NORMAL > or = 60 mg/dl - LOW CARDIOVASCULAR RISK <40 mg/dl - HIGH CARDIOVASCULAR RISK Normal [facility] Comment on above: Performed By: #### B MP, LIPID #### [facility] [address] [place] [address] Dr. Giacomo Mace LDL CALC NORMAL SEE BELOW Normal [facility] Comment on above: Result Comment: <100 mg/dl OPTIMAL 100 - 129 mg/dl NEAR OR ABOVE OPTIMAL 130 - 159 mg/dl BORDERLINE HIGH 160 - 189 mg/dl HIGH >190 mg/dl VERY HIGH Performed By: #### B MP, LIPID #### [facility] [address] [place] [address] Dr. Giacomo Mace Triglyceride [Mass/Vol] 108 mg/dL Normal <=150 [facility] Comment on above: Performed By: #### B MP, LIPID #### [facility] [address] [place] [address] Dr. Giacomo Mace VLDL CALC 21.6 mg/dL Normal [facility] Comment on above: Performed By: #### B MP, LIPID #### [facility] [address] [place] [address] Dr. Giacomo Mace PROF CHEM 8 (BAS METB)on Anion gap [Moles/Vol] 9.6 mmol/L Normal [facility] Comment on above: Performed By: #### B MP, LIPID #### [facility] [address] [place] [address] Dr. Giacomo Mace Calcium [Mass/Vol] 9.3 mg/dL Normal 8.5-10.1 [facility] Comment on above: Performed By: #### B MP, LIPID #### [facility] [address] [place] [address] Dr. Giacomo Mace Chloride [Moles/Vol] 104 mmol/L Normal 98-107 [facility] Comment on above: Performed By: #### B MP, LIPID #### [facility] [address] [place] [address] Dr. Giacomo Mace CO2 [Moles/Vol] 27.8 mmol/L Normal 21.0-32.0 [facility] Comment on above: Performed By: #### B MP, LIPID #### [facility] [address] [place] [address] Dr. Giacomo Mace Creatinine [Mass/Vol] 1.08 mg/dL Normal 0.70-1.30 [facility] Comment on above: Performed By: #### B MP, LIPID #### [facility] [address] [place] [address] Dr. Giacomo Mace EGFR-AF THAI >60 Normal >=60 [facility] Comment on above: Performed By: #### B MP, LIPID #### [facility] [address] [place] [address] Dr. Giacomo Mace EGFR-NON AF THAI >60 Normal >=60 [facility] Comment on above: Performed By: #### B MP, LIPID #### [facility] [address] [place] [address] Dr. Giacomo Mace Glucose [Mass/Vol] 111 mg/dL Critically high 74-106 [facility] Comment on above: Performed By: #### B MP, LIPID #### [facility] [address] [place] [address] Dr. Giacomo Mace Potassium [Moles/Vol] 4.4 mmol/L Normal 3.5-5.1 [facility] Comment on above: Performed By: #### B MP, LIPID #### [facility] [address] [address] [address] Giacomo Mace Sodium [Moles/Vol] 137 mmol/L Normal 136-145 [facility] Comment on above: Performed By: #### B MP, LIPID #### [facility] [address] [place] [address] Dr. Giacomo Mace Urea nitrogen [Mass/Vol] 27.0 mg/dL Critically high 7.0-18 .0 [facility] Comment on above: Performed By: #### B MP, LIPID #### [facility] [address] [place], [place] [address] Dr. Giacomo Mace Urea nitrogen/Creatinine [Mass ratio] 25.0 mg/mg Normal [facility] Comment on above: Performed By: #### B MP, LIPID #### [facility] [address] [place], [place] [address] Dr. Giacomo Mace ECHOCARDIO M/2D COMPLETEon 0 07-09-2022 ECHOCARDIO M/2D COMPLETE Patient: KANG BRADY Exam Date: 07/09/2022 : 1940 Gender:M Ordering : [facility] Admission #: [id number] Family : DR TIMBO BAIG D.O. Order #: [id number] CLICK HERE TO VIEW EXAM ECHOCARDIOGRAM REPORT PROCEDURE: CARDIO PULMONARY ECHOCARDIO M/2D COMP INDICATIONS: Aortic Valve disorder, bioprosthetic aortic valve (2018), CABG x 1 COMPARISON: None. DESCRIPTION: COMPLETE ECHOCARDIOGRAM Real-time transthoracic echocardiography with 2D, M-mode, spectral and color flow Doppler performed. QUALITY: Technical quality was good. 69 200# BP 132/80 HR 68 LEFT VENTRICLE: Small chamber size. Thickened septal wall. LV EF: Global left ventricular systolic function is normal; visually estimated ejection fraction is 55 to 60%. No significant wall motion abnormalities. DIASTOLIC: Diastolic function is indeterminate. ATRIAL SEPTUM: Visually appears intact. LEFT ATRIUM: Normal chamber size. RIGHT ATRIUM: Normal chamber size. RIGHT VENTRICLE: Appears enlarged. Decreased right ventricular systolic function. TRICUSPID VALVE: Normal mobility and thickness. No stenosis with mild regurgitation. No evidence of pulmonary hypertension. RVSP 29 mmHg MITRAL VALVE: Moderately thickened with decreased mobility. Mild mitral valve stenosis. Moderate mitral annular calcification. Mild mitral regurgitation. AORTIC VALVE: Bio-Prosthetic valve appears well seated in the aortic position with normal Doppler flows. No aortic regurgitation. AORTIC ROOT: Normal diameter and appearance. PULMONIC VALVE: Normal thickness and mobility. No stenosis. Trivial regurgitation. PERICARDIUM: No evidence of pericardial effusion. IVC: Collapses with inspirations. CONCLUSION: Global left ventricular systolic function is normal; visually estimated ejection fraction is 55 to 60%. No significant wall motion abnormalities. Diastolic function is indeterminate. The right ventricle appears enlarged with reduced systolic function. Mild tricuspid regurgitation. Mild mitral valve stenosis. Mild mitral regurgitation. A bioprosthetic aortic valve is seen with normal Doppler flows. Adult Echocardiography Procedure Report Left Ventricle Left Atrium Mitral Valve Right Ventricle Aorta Aortic Valve Peak Velocity (Antegrade Flow): 2.26 m/s AoV Area (Peak Brady): 1.52 cm2, 1.52 cm2 AoV Area (VTI): 1.96 cm2, 1.96 cm2 Tricuspid Valve Peak Velocity (Regurgitant Flow): 2.21 m/s, 2.53 m/s Peak Velocity: 0.53 m/s Pulmonic Valve Mean Gradient: 1.84 mm[Hg] Mean Velocity: 0.63 m/s Peak Velocity: 0.89 m/s, 0.93 m/s Peak Gradient: 3.49 mm[Hg], 3.20 mm[Hg] Right Atrium Dictated by: Ilene Davis M.D. on 07/10/2022 at 14:42 Approved by: Ilene Davis M.D. on 07/10/2022 at 14:46 Normal [facility] CPKon 04-27-2022 CK [Catalytic activity/Vol] 96 U/L Normal 39-308 [facility] Comment on above: Performed By: #### C RP, CK #### [facility] [address] [place] [address] Dr. Giacomo Mace CRPon 04-27-2022 CRP [Mass/Vol] mg/L Normal <=1.0 [facility] Comment on above: Performed By: #### C RP, CK #### [facility] [address] [place] [address] Dr. Giacomo Mace ELECTROLYTESon 04-18-2022 Anion gap [Moles/Vol] 11.8 mmol/L Normal [facility] Comment on above: Performed By: #### E LEC #### [facility] [address] [place] [address] Dr. Giacomo Mace Chloride [Moles/Vol] 104 mmol/L Normal 98-107 [facility] Comment on above: Performed By: #### E LEC #### [facility] [address] [place] [address] Dr. Giacomo Mace CO2 [Moles/Vol] 27.5 mmol/L Normal 21.0-32.0 [facility] Comment on above: Performed By: #### E LEC #### [facility] [address] [address] [address] Giacomo Mace Potassium [Moles/Vol] 4.3 mmol/L Normal 3.5-5.1 [facility] Comment on above: Performed By: #### E LEC #### [facility] [address] [address] [address] Giacomo Mace Sodium [Moles/Vol] 139 mmol/L Normal 136-145 [facility] Comment on above: Performed By: #### E LEC #### [facility] [address] [address] [address] Giacomo Mace XR KUB 1 VIEWon 04-18-2022 XR KUB 1 VIEW EXAMINATION: XR KUB 1 VIEW HISTORY: Kidney stone COMPARISON: No relevant comparison available. FINDINGS: KIDNEY/URETER - RIGHT: Punctate nephrolithiasis KIDNEY/URETER - LEFT: No visible renal or ureteral calcifications. PELVIS: No visible ureteral calcifications. Any visible calcifications favor phleboliths. BOWEL: No abnormal dilation or deviation. BONES: Moderate degenerative changes of the spine. Moderate bilateral hip osteoarthropathy OTHER: Vascular calcifications. No abnormal gaseous collections. IMPRESSION: Stable right nephrolithiasis Electronically authenticated by: IVY DOMINGUEZ Date: 2022-04-18 08:04 Normal [facility] Vital Signs Date Time Vital Sign Value Performing Clinician Facility 11-21-2023 10:30-0500 Body height 177.8 cm [employer] Other [facility] Other 11-21-2023 10:30-0500 Body mass index (BMI) [Ratio] 29.12 kg/m2 [employer] Other [facility] Other 11-21-2023 10:30-0500 Body weight 92.08 kg [employer] Other [facility] Other 11-21-2023 10:30-0500 Diastolic blood pressure 66 mm[Hg] Timbo Ball Other [facility] Other 11-21-2023 10:30-0500 Respiratory rate 12 /min Timbo Ball Other [facility] Other 11-21-2023 10:30-0500 Systolic blood pressure 103 mm[Hg] Timbo Ball Other [facility] Other 09-24-2023 11:00-0500 Body height 177.8 cm Timbo Ball Other [facility] Other 09-24-2023 11:00-0500 Body mass index (BMI) [Ratio] 28.69 kg/m2 Timbo Ball Other [facility] Other 09-24-2023 11:00-0500 Body weight 90.72 kg Timbo Ball Other [facility] Other 09-24-2023 11:00-0500 Diastolic blood pressure 73 mm[Hg] Timbo Ball Other [facility] Other 09-24-2023 11:00-0500 Respiratory rate 12 /min Timbo Ball Other [facility] Other 09-24-2023 11:00-0500 Systolic blood pressure 134 mm[Hg] Timbo Ball Other [facility] Other 08-25-2023 12:21-0400 Blood Pressure Location Puma LOYA [facility] 08-25-2023 12:21-0400 Diastolic blood pressure 82 mm[Hg] Puma LOYA [facility] 08-25-2023 12:21-0400 Heart rate 80 /min Puma LOYA [facility] 08-25-2023 12:21-0400 Respiratory rate 16 /min Puma LOYA [facility] 08-25-2023 12:21-0400 Systolic blood pressure 137 mm[Hg] Puma LOYA [facility] 04-12-2023 09:16-0400 Body temperature 97 [degF] PA Aury Shehorn Work Phone: [facility] 04-12-2023 09:16-0400 Body weight 88.45 kg PA Aury Shehorn Work Phone: [facility] 04-12-2023 09:16-0400 Diastolic blood pressure 62 mm[Hg] PA Aury Shehorn Work Phone: [facility] 04-12-2023 09:16-0400 Heart rate 80 /min PA Aury Shehorn Work Phone: [facility] 04-12-2023 09:16-0400 SaO2% (BldA) [Mass fraction] 96 % PA Aury Shehorn Work Phone: [facility] 04-12-2023 09:16-0400 Systolic blood pressure 123 mm[Hg] PA Aury Shehorn Work Phone: [facility] 03-24-2023 12:00-0400 Body height 177.8 cm Timbo Ball Other [employer] [facility] Other 03-24-2023 12:00-0400 Body mass index (BMI) [Ratio] 28.44 kg/m2 Timbo Ball Other [employer] [facility] Other 03-24-2023 12:00-0400 Body weight 89.9 kg Timbo Ball Other [facility] Other 03-24-2023 12:00-0400 Diastolic blood pressure 67 mm[Hg] Timbo Ball Other [facility] Other 03-24-2023 12:00-0400 Respiratory rate 12 /min Timbo Ball Other [facility] Other 03-24-2023 12:00-0400 Systolic blood pressure 123 mm[Hg] Timbo Ball Other [facility] Other 04-29-2022 14:30-0400 Body height 177.8 cm Niya Chowjorge Other [facility] Other 04-29-2022 14:30-0400 Body mass index (BMI) [Ratio] 28.69 kg/m2 Niya Chowjorge Other [facility] Other 04-29-2022 14:30-0400 Body temperature 96.3 [degF] Niya Chowjorge Other [facility] Other 04-29-2022 14:30-0400 Body weight 90.72 kg Niya Chowjorge Other [facility] Other 04-29-2022 14:30-0400 Diastolic blood pressure 80 mm[Hg] Niya Baker Other [facility] Other 04-29-2022 14:30-0400 SaO2% (BldA) [Mass fraction] 98 % Niya Baker Other [facility] Other 04-29-2022 14:30-0400 Systolic blood pressure 120 mm[Hg] Niya Baker Other [facility] Other 04-19-2022 10:04-0400 Blood Pressure Location Puma LOYA [facility] [place] 04-19-2022 10:04-0400 Diastolic blood pressure 84 mm[Hg] Puma LOYA [facility] [place] 04-19-2022 10:04-0400 Heart rate 67 /min Puma LOYA [facility] [place] 04-19-2022 10:04-0400 Respiratory rate 16 /min Puma LOYA [facility] [place] 04-19-2022 10:04-0400 Systolic blood pressure 143 mm[Hg] Puma LOYA [facility] [place] Encounters Encounter Date Encounter Type Care Provider Facility Start: 12-17-2023 End: 12-17-2023 ambulatory [facility] Start: 11-21-2023 End: 11-21-2023 ambulatory Timbo Baig Other [facility] Other Start: 11-21-2023 Office outpatient vi sit 15 minutes Timbo Baig [facility] Start: 10-08-2023 End: 10-08-2023 ambulatory Timbo Baig Other [facility] Other Start: 10-08-2023 Telephone encounter Timbo REBOLLEDO [facility] Start: 09-24-2023 End: 09-24-2023 ambulatory Timbo Baig Other [facility] Other Start: 09-24-2023 Office outpatient vi sit 25 minutes Timbo Baig [facility] Start: 09-04-2023 Office outpatient vi sit 15 minutes Jaylon Finnegan [facility] Start: 09-04-2023 End: 09-04-2023 ambulatory DO Timbo Jovanni Work Phone: [facility] Other Start: 09-04-2023 End: 09-04-2023 Patient encounter procedure DO Timbo Baig Work Phone: [facility] Start: 08-25-2023 End: 08-26-2023 ambulatory Puma LOYA Facility:[facility] Start: 08-25-2023 End: 08-25-2023 Patient encounter procedure Puma LOYA [facility] Start: 2023 End: 2023 ambulatory Niya Baker Other [facility] Other Start: 2023 Telephone encounter Niya Barber [facility] Start: 05-22-2023 End: 05-23-2023 ambulatory Puma LOYA [facility] Other Start: 05-22-2023 Telephone encounter Niya Barber [facility] Start: 05-01-2023 End: 05-01-2023 ambulatory Niya Baker Facility:[facility] Start: 05-01-2023 End: 05-01-2023 ambulatory DO Timbo Baig Work Phone: [facility] Work Phone: Start: 05-01-2023 End: 05-01-2023 Patient encounter procedure DO Timbo Baig Work Phone: [facility] Start: 04-21-2023 End: 04-22-2023 ambulatory Puma LOYA Facility:[facility] Start: 04-12-2023 End: 04-12-2023 ambulatory ANDERSON Aury Maiasaima Work Phone: [facility] Work Phone: Start: 04-12-2023 End: 04-12-2023 Patient encounter procedure ANDERSON Aury Carvalhosaima Work Phone: [facility] Work Phone: Start: 04-02-[address] TIMBO BAIG Facili ty:[facility] Start: 03-24-2023 End: 03-24-2023 ambulatory Timbo Baig Other [facility] Other Start: 03-24-2023 Patient encounter procedure Timbo Baig [facility] Start: 12-23-2022 End: 12-23-2022 ambulatory [facility] Start: 09-25-2022 End: 09-26-[address] TIMBO BAIG Facility:[facility] Start: 07-09-2022 End: 07-10-2022 ambulatory TITA JJ Facility:[facility] Start: 04-29-2022 End: 04-29-2022 ambulatory Niya Baker Other [facility] Other Start: 04-29-2022 Follow-up encounter Niya Barber [facility] Start: 04-29-2022 End: 04-29-2022 Patient encounter procedure DO Timbo Baig Work Phone: [facility] Start: 04-27-2022 End: 04-28-[address] TIMBO BAIG Facility:[facility] Start: 04-19-2022 End: 04-19-2022 Patient encounter procedure Puma LOYA [facility] Start: 04-18-2022 End: 04-19-[address] PUMA LOYA . Facility:[facility] Start: 03-13-2022 Adult health examination Jaylon Finnegan Other [facility] Other Procedures Date Procedure Procedure Detail Performing Clinician Start: 09-04-2023 Ankle brachial press ure index DO Timbo Baig Work Phone: Start: 05-22-2023 Extracorporeal shock wave lithotripsy of calculus of kidney Puma LOYA Start: 04-12-2023 Flu B PA Aury Ann Work Phone: Start: 04-12-2023 Rapid Strep PA Aury Carvalhorn Work Phone: Start: 08-31-2020 Extracorporeal shock wave lithotripsy of calculus of kidney Puma LOYA Start: 05-23-2020 Cystoscopy Puma LEWIS Start: 06-17-2019 Cystoscopic removal of ureteric stent Puma LOYA Start: 06-10-2019 Cystoscopic insertio n of ureteric stent Puma LOYA Start: 09-18-2018 Screening for malign ant neoplasm of colon Jaylon Finnegan Other Start: 04-11-2016 Extracorporeal shock wave lithotripsy of calculus of kidney Puma LOYA Comment on above: w/ left stent remova l Start: 03-25-2016 Lithotripsy using laser Puma LOYA Comment on above: Cystoscopy/Urethreal dilateion/Left stent placement/ Holmium laser of left prostatic calculus/Stone extraction Start: 10-10-2014 Coronary artery bypass graft Puma LOYA Start: 11-10-2011 Coronary artery sten t (physical object) Puma LOYA Start: 09-18-2009 Cystoscopy Puma SHARMA TERS Start: 11-10-2002 Cystoscopy Puma WA TERS Start: 11-10-2002 Transurethral prostatectomy Puma LOYA Comment on above: w/ Cystoscopy Start: 11-10-2001 Transrectal biopsy o f prostate using ultrasound guidance Puma LOYA Cystoscopy Puma LOYA Depression screening Jaylon Finnegan Other Hemorrhoidectomy Puma CARLTON ABREU Herniated structure (morphologic abnormality) Puma LOYA Urodynamic studies Puma Fischer KENZIEYOLIS Plan of Treatment Date Care Activity Detail Author Start: 08-30-2024 ambulatory Ambulatory Facility:[facility] Start: 05-01-2023 Doppler ultrasonography of bilateral carotid arteries US carotid doppler [facility] Start: 05-01-2023 US.doppler Carotid arteries - [facility] Start: 04-29-2022 Doppler ultrasonography of bilateral carotid arteries US carotid doppler [facility] Patient Education Viral Syndrome (AC) [facility] [employer] Work Phone: Immunizations Immunization Date Immunization Notes Care Provider [facility] 08-04-2022 COVID-19 Pfizer (bivalent) Timbo Baig Other [facility] 08-04-2022 influenza virus vaccine, unspecified formulation Puma LOYA [facility] 08-04-2022 influenza, high dose seasonal, preservative-free Timbo Baig Other [facility] Other 02-21-2022 COVID-19 Pfizer Timbo velasco Other [facility] Other 02-21-2022 SARS-CoV-2 mRNA (loaikkvvjpm-ebjf-zqvth se) vaccine Puma LOYA [facility] 09-06-2021 zoster vaccine recombinant Timbo Baig Other [facility] 08-10-2021 influenza virus vaccine, unspecified formulation Puma LOYA [facility] 08-07-2021 COVID-19 Vaccine Pfi zer - Documentation Purposes Only Timbo Baig Other [facility] Comment on above: Result Comment: 2022: [id number] 07-19-2021 influenza virus vaccine, unspecified formulation Puma LOYA [facility] 05-16-2021 zoster vaccine recombinant Timbo Baig Other [facility] 01-09-2021 COVID-19 Vaccine Pfi zer - Documentation Purposes Only Timbo Baig Other [facility] Comment on above: Result Comment: 2022: [id number] 12-19-2020 COVID-19 Vaccine Pfi zer - Documentation Purposes Only Timbo Baig Other [facility] Comment on above: Result Comment: 2022: [id number] 07-31-2020 influenza virus vaccine, unspecified formulation Puma LOYA [facility] 08-20-2019 influenza virus vaccine, split virus (incl. purified surface antigen) Jaylon Finnegan Other [facility] Other 08-10-2019 influenza virus vaccine, unspecified formulation Puma LOYA [facility] 02-19-2019 pneumococcal polysaccharide vaccine, 23 valent Timbo Baig Other [facility] 09-21-2018 influenza virus vaccine, unspecified formulation Puma LOYA [facility] 08-19-2018 influenza virus vaccine, split virus (incl. purified surface antigen) Jaylon Finnegan Other [facility] Other 02-16-2018 pneumococcal conjuga te vaccine, 13 valent Timbo Ball Other [facility] 09-02-2017 influenza virus vaccine, unspecified formulation Puma LOYA [facility] 08-28-2016 influenza virus vaccine, unspecified formulation Puma LOYA [facility] 08-22-2015 influenza virus vaccine, unspecified formulation Puma LOYA [facility] 08-19-2013 influenza virus vaccine, unspecified formulation Puma LOYA [facility] Payers Date Payer Category Payer Self-pay [id number] 1957 Medicare [id number] 1957 Private Health Insurance [id number] 1940 Unknown [id number] 3 1942 Unknown [id number] [id number] 3 1942 Unknown [id number] [id number] 3 1942 Unknown [id number] [id number] 3 1942 Unknown [id number] [id number] 3 1942 Unknown [id number] 2.16.840.1.509871.3.579.2.72 7 1942 Unknown [id number] [id number] 7 1942 Unknown [id number] [id number] 7 1942 Unknown [id number] [id number] 7 Medicare MEDICARE PARTS A & B [id number] Unknown [id number] 1 Unknown [id number] 1 Social History Date Type Detail Facility Start: 08-27-2021 End: 04-21-2023 Tobacco smoking status Ex-smoker (finding) [facility] Sex Assigned At Male [facility] Start: 1940 Sex Assigned At Male [facility] Start: 04-12-2023 Alone [facility] Start: 04-12-2023 0 [facility] Functional Status Date Assessment Result Facility 08-25-2023 Functional Status N/A [facility] Clinical Notes 04-19-2022 to 12-17-2023 Note Date & Type Note Facility 12-17-2023 Note Patient here for 1 y ear follow up CAD, PVD, aortic valve stenosis, and carotid artery stenosis. He had an echo in Jun and labs in Jul 2023. C/o worsening KNIGHT and fatigue. Denies chest pain, palpitations, and lightheadedness/syncope, and LE edema. C/o claudication, had CHING's in March 2023. Review of Systems Constitutional: Positive for malaise/fatigue. Cardiovascular: Positive for claudication and dyspnea on exertion (worsening). Musculoskeletal: Positive for arthritis and back pain. All other systems reviewed and are negative. 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 He c/o low back pain w/ ambulating and standing along with the weakness. I don't believe this is a Peroneal injury due to his associated back pain. His symptoms have been present for a couple years. - previously referred to [facility] Neurosurgery but declined treatment He feels the weakness has worsened over the past year. Refer to Neurosurgery - EMG/NCS? - PT? - pain management for back pain - instructed on use of AFO brace Nov, Left foot drop (ICD-10 - M21.372) Sent for AFO bracing. Rx given to patient Nov, 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 (ICD-10 - I70.213) Walk daily until pain results. Inspect feet daily for cuts. Fall precautions. Nov, Chronic venous insufficiency (ICD-10 - I87.2) Avoid salt and elevate lower extremities, support stockings, inspect legs and feet daily for blisters and ulcerations. [facility] Other 11-15-2023 Evaluation note* Encounter Date Diagnosis Assessment Notes Treatment Notes Treatment Clinical Notes Sep, ASHD (arteriosclerot ic heart disease) (ICD-10 - I25.10) - Echocardiogram 06/2022 LVEF 55 to 60%. The right ventricle appears enlarged with reduced systolic function. Mild tricuspid regurgitation. Mild mitral valve stenosis. Mild mitral regurgitation. A bioprosthetic aortic valve is seen with normal Doppler flows. This patient is stable without activity related CP, dyspnea or lightheadedness. They are instructed to continue exercise and AHA diet plan. Continue secondary prevention measures. Sep, Lumbar spondylosis w ith myelopathy (ICD-10 - M47.16) The patient is instructed to avoid bending, twisting or lifting. They are to use intermittent heat and ice as needed. They may schedule a massage or gentle manipulation. They may safely use Tylenol as needed. Refer for EMG/NCS May require splinting - discussed AFO bracing to prevent falling MRI lumbar spine Sep, Left foot drop (ICD- 10 - M21.372) Fall precautions Discussed use of AFO bracing. Refer to [facility] for EMG/NCS Repeat MRI Likely correlates w/ lumbar spondylosis Sep, Atherosclerosis of b [facility] lower extremities with intermittent claudication (ICD-10 - I70.213) Walk daily until pain then rest and restart. COntinue secondary prevention measures. Inspect feet daily for cuts. Sep, Pure hypercholesterolemia (ICD-10 - E78.00) Instructed on diet and exercise with continued statin therapy.Discussed the beneficial effects of lowering cholesterol in reducing the risk for cerebrovascular and cardiovascular disease. Sep, Chronic venous insufficiency (ICD-10 - I87.2) Avoid salt and elevate lower extremities, support stockings, inspect legs and feet daily for blisters and ulcerations. Sep, Overweight (ICD-10 - E66.3) This patient has been instructed on a low-fat, high-fiber diet. They are instructed to reduce calories, portion sizes and snacks. It is recommended that they exercise for 30 minutes, 3-5 times weekly. Sep, S/P aortic valve replacement (ICD-10 - Z95.2) Denies CP, tachycardia or lightheadedness. f/u Cardiology w/ serial Echocardiogram Control BP and HR [facility] Other 10-26-2023 Evaluation note* Encounter Date Diagnosis Assessment Notes Treatment Notes Treatment Clinical Notes Aug, PAD (peripheral artery disease) (ICD-10 - I73.9) Based on history, this patient has mild PAD. I would recommend conservative nonoperative management with risk factor modification. This is the same plan for his carotid disease. We will see him back in 1 year to check both vascular beds. He understands agrees with plan all his questions were addressed I suggest he see Dr. Treviño for possible work-up of his left hip pain which seems to be bothering him. [facility] Other 10-16-2023 Hospital Discharge instructions Patient Education 08/25/2023 13:28:54 Dietary Guidelines to Help Prevent Kidney Stones Dietary Guidelines to Help Prevent Kidney Stones Kidney stones are deposits of minerals and salts that form inside your kidneys. Your risk of developing kidney stones may be greater depending on your diet, your lifestyle, the medicines you take, and whether you have certain medical conditions. Most people can lower their chances of developing kidney stones by following the instructions below. Your dietitian may give you more specific instructions depending on your overall health and the type of kidney stones you tend to develop. What are tips for following this plan? Reading food labels Choose foods with no salt added or low-salt labels. Limit your salt (sodium) intake to less than 1,500 mg a day. Choose foods with calcium for each meal and snack. Try to eat about 300 mg of calcium at each meal.Foods that contain 200 500 mg of calcium a serving include: ?8 oz (237 mL) of milk, gkacoux-tcfxqjqiuaev-jhfxc milk, and calcium- fortifiedfruit juice. Calcium-fortified means that calcium has been added to these drinks. ?8 oz (237 mL) of kefir, yogurt, and soy yogurt. ?4 oz (114 g) of tofu. ?1 oz (28 g) of cheese. ?1 cup (150 g) of dried figs. ?1 cup (91 g) of cooked broccoli. ?One 3 oz (85 g) can of sardines or mackerel. Most people need 1,000 1,500 mg of calcium a day. Talk to your dietitian about how much calcium is recommended for you. Shopping Buy plenty of fresh fruits and vegetables. Most people do not need to avoid fruits and vegetables, even if these foods contain nutrients that may contribute to kidney stones. When shopping for convenience foods, choose: ?Whole pieces of fruit. ?Pre-made salads with dressing on the side. ?Low-fat fruit and yogurt smoothies. Avoid buying frozen meals or prepared deli foods. These can be high in sodium. Look for foods with live cultures, such as yogurt and kefir. Choose high-fiber grains, such as whole-wheat breads, oat bran, and wheat cereals. Cooking Do not add salt to food when cooking. Place a salt shaker on the table and allow each person to addhis or her own salt to taste. Use vegetable protein, such as beans, textured vegetable protein (TVP), or tofu, instead of meat inpasta, casseroles, and soups. Meal planning Eat less salt, if told by your dietitian. To do this: ?Avoid eating processed or pre-made food. ?Avoid eating fast food. Eat less animal protein, including cheese, meat, poultry, or fish, if told by your dietitian. To dothis: ?Limit the number of times you have meat, poultry, fish, or cheese each week. Eat a diet free of meat at least 2 days a week. ?Eat only one serving each day of meat, poultry, fish, or seafood. ?When you prepare animal protein, cut pieces into small portion sizes. For most meat and fish, one serving is about the size of the palm of your hand. Eat at least five servings of fresh fruits and vegetables each day. To do this: ?Keep fruits and vegetables on hand for snacks. ?Eat one piece of fruit or a handful of berries with breakfast. ?Have a salad and fruit at lunch. ?Have two kinds of vegetables at dinner. Limit foods that are high in a substance called oxalate. These include: ?Spinach (cooked), rhubarb, beets, sweet potatoes, and Tongan chard. ?Peanuts. ?Potato chips, pitcairn islander fries, and baked potatoes with skin on. ?Nuts and nut products. ?Chocolate. If you regularly take a diuretic medicine, make sure to eat at least 1 or 2 servings of fruits or vegetables that are high in potassium each day. These include: ?Avocado. ?Banana. ?[place], prune, carrot, or tomato juice. ?Baked potato. ?Cabbage. ?Beans and split peas. Lifestyle Drink enough fluid to keep your urine pale yellow. This is the most important thing you can do. Spread your fluid intake throughout the day. If you drink alcohol: ?Limit how much you use to: ?0 1 drink a day for women who are not . ?0 2 drinks a day for men. ?Be aware of how much alcohol is in your drink. In the [place] one drink equals one 12 oz bottle of beer (355 mL), one 5 oz glass of wine (148 mL), or one 1 oz glass of hard liquor (44 mL). Lose weight if told by your health care provider. Work with your dietitian to find an eating plan and weight loss strategies that work best for you. General information Talk to your health care provider and dietitian about taking daily supplements. You may be told thefollowing depending on your health and the cause of your kidney stones: ?Not to take supplements with vitamin C. ?To take a calcium supplement. ?To take a daily probiotic supplement. ?To take other supplements such as magnesium, fish oil, or vitamin B6. Take bjag-adn-kdgvwyp and prescription medicines only as told by your health care provider. These include supplements. What foods should I limit? Limit your intake of the following foods, or eat them as told by your dietitian. Vegetables Spinach. Rhubarb. Beets. Canned vegetables. Pickles. Olives. Baked potatoes with skin. Grains Wheat bran. Baked goods. Salted crackers. Cereals high in sugar. Meats and other proteins Nuts. Nut butters. Large portions of meat, poultry, or fish. Salted, precooked, or cured meats, such as sausages, meat loaves, and hot dogs. Dairy Cheese. Beverages Regular soft drinks. Regular vegetable juice. Seasonings and condiments Seasoning blends with salt. Salad dressings. Soy sauce. Ketchup. Barbecue sauce. Other foods Canned soups. Canned pasta sauce. Casseroles. Pizza. Lasagna. Frozen meals. Potato chips. Kinyarwanda fries. The items listed above may not be a complete list of foods and beverages you should limit. Contact a dietitian for more information. What foods should I avoid? Talk to your dietitian about specific foods you should avoid based on the type of kidney stones youhave and your overall health. Fruits Grapefruit. The item listed above may not be a complete list of foods and beverages you should avoid. Contact adietitian for more information. Summary Kidney stones are deposits of minerals and salts that form inside your kidneys. You can lower your risk of kidney stones by making changes to your diet. The most important thing you can do is drink enough fluid. Drink enough fluid to keep your urine pale yellow. Talk to your dietitian about how much calcium you should have each day, and eat less salt and animal protein as told by your dietitian. This information is not intended to replace advice given to you by your health care provider. Make sure you discuss any questions you have with your health care provider. Document Revised: 07/08/2022 Document Reviewed: 07/08/2022 [employer] Patient Education 2022 [employer]. Follow Up Care 05/30/2023 13:07:47 With:REINIER HUSAIN, Puma Jaramillo, URL Address: [facility] [address], [place] [address]- When:Within 1 Year(s) Comments:w/MELQUIADES [facility] 05-15-2023 Evaluation note* Encounter Date Diagnosis Assessment Notes Treatment Notes Treatment Clinical Notes March, Medicare annual well ness visit, subsequent (ICD-10 - Z00.00) Personalized health advice was given to the beneficiary including a written plan for screenings discussed and provided. Advanced care planning reviewed and/or information given as requested. Additional counseling was provided here today in regards to, [ ]. The above visit was performed by [ ], under direct supervision of [ ]. Document reviewed and amended by provider signed below. Healthy diet and exercise. Reviewed age-appropriate preventive testing recommended. March, ASHD (arteriosclerot ic heart disease) (ICD-10 - I25.10) - Echocardiogram 06/2022 LVEF 55 to 60%. The right ventricle appears enlarged with reduced systolic function. Mild tricuspid regurgitation. Mild mitral valve stenosis. Mild mitral regurgitation. A bioprosthetic aortic valve is seen with normal Doppler flows. This patient is stable without activity related CP, dyspnea or lightheadedness. They are instructed to continue exercise and AHA diet plan. March, Pure hypercholesterolemia (ICD-10 - E78.00) Instructed on diet and exercise with continued statin therapy.Discussed the beneficial effects of lowering cholesterol in reducing the risk for cerebrovascular and cardiovascular disease. 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 The patient is instructed to avoid bending, twisting or lifting. They are to use intermittent heat and ice as needed. They may schedule a massage or gentle manipulation. They may safely use Tylenol as needed. March, Chronic venous insufficiency (ICD-10 - I87.2) Avoid salt and elevate lower extremities, support stockings, inspect legs and feet daily for blisters and ulcerations. March, Overweight (ICD-10 - E66.3) This patient has been instructed on a low-fat, high-fiber diet. They are instructed to reduce calories, portion sizes and snacks. It is recommended that they exercise for 30 minutes, 3-5 times weekly. March, S/P aortic valve replacement (ICD-10 - Z95.2) Control BP and serial Echocardiogram f/u Cardiology March, High risk medication use (ICD-10 - Z79.899) [facility] Chief Complaint: Patient here for 1 year follow up CAD, PVD, aortic valve stenosis, and carotid artery stenosis. Had echo in Jun 2022, and labs in Sep. Denies chest pain and palpitations. Says his SOB with exertion remains unchanged from prior visit in Dec 2021. PCP switched him from simvastatin to atorvastatin a few months ago after lab work. HPI: PMHx: AVR 2014, CAD s/p CABG x1 2014, HTN, carotid stent by vascular surgeon in [place] (Dr. Cedillo) Cardiology ROS: Review of Systems HENT: Positive for hearing loss. All other systems reviewed and are negative. Past Medical History He has no past medical history on file. Surgical History He has no past surgical history on file. Social History He has no history on file for tobacco use, alcohol use, and drug use. Family History No family history on file. Allergies Patient has no allergy information on record. Medications No current outpatient medications on file. Last Recorded Vitals BP 144/79 (BP Location: Left arm, Patient Position: Sitting) Pulse 67 Ht 1.778 m (5' 10 ) Wt 88.5 kg (195 lb) SpO2 95% BMI 27.98 kg/m??? Physical Examination: GENERAL: alert and oriented x3, well developed, in no acute distress. HEAD: atraumatic, normocephalic. EYES: EULA, EOMI. NECK: trachea midline, no JVD present, no carotid bruits present. CARDIAC: S1, S2 present. RRR. No murmur, rubs, or gallops. RESPIRATORY: CTAB, no increased effort of breathing, no rales, rhonchi, or wheezing. ABDOMEN: soft, nontender, nondistended. EXTREMITIES: no lower extremity edema, peripheral pulses are 2+ bilaterally. No rash/skin discoloration present. NEURO: strength/sensation equal and symmetric in bilateral upper and lower extremities. PSYCH: appropriate mood, affect, and judgement. Investigations: Lipids 07/2021: Chol 139, HDL 59, trig 64, LDL 67 Echo (06/22/2021) 1. Normal ventricular systolic function 2. Mild diastolic dysfunction 3. Bioprosthetic aortic valve with normal function 4. Mitral mitral valve stenosis 5. Normal right-sided pressures PROCEDURE (11/11/2014): Aortic valve replacement and a CABG x1 with left radial artery graft to the OM1. Cardiovascular Laboratory Report (10/13/2014) FINAL IMPRESSIONS: 1. Severe aortic stenosis by invasive hemodynamic study. 2. Rwgjfddm-pb-izwogo two-vessel coronary artery disease involving the left anterior descending and left circumflex coronary arteries. 3. Normal right-sided heart pressures and wedge pressure. 4. Normal cardiac output/cardiac index. 5. 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 RECOMMENDATIONS: 1. Consult cardiothoracic surgery for aortic valve replacement and coronary artery bypass graft surgery. 2. Aggressive cardiovascular risk factor modification. 3. Optimization of medical management; aspirin, beta-marilyn, statin therapy are all indicated. 4. Further investigations and management of peripheral artery disease as appropriate. 5. Follow up with Dr. Cortes as an outpatient as scheduled. 6. Follow up with his family physician as scheduled. Echocardiogram 06/2022: Global left ventricular systolic function is normal; ejection fraction 55 to 60%. No significant wall motion abnormalities. Diastolic function is indeterminate. The right ventricle appears enlarged with reduced systolic function. Mild tricuspid regurgitation. Mild mitral valve stenosis. Mild mitral regurgitation. A bioprosthetic aortic valve is seen with normal Doppler flows. Assessment: 1. Aortic valve disorder - stable, S/P AVR 2014 ECHO 06/2021 showed normal functioning valve F/u ECHO in 6 months I35.9: Nonrheumatic aortic valve disorder, unspecified TRANS-THORACIC ECHOCARDIOGRAM (TTE) (PROC) - Note to Provider: To be done June, 2. Coronary arteriosclerosis - s/p CABG x1 2015 Lipids 07/2021: Chol 139, HDL 59, trig 64, LDL 67 - well controlled Denies angina or dyspnea Continue aspirin, Plavix, metoprolol, and simvastatin I25.10: Atherosclerotic heart disease of platinum coronary artery without angina pectoris 3. Peripheral vascular disease - Rt EXTERNAL ILIAC STENOSIS Denies any sx's Continue ASA, plavix, statin I73.9: Peripheral vascular disease, unspecified 4. Benign essential hypertension - Controlled, continue HCTZ and metoprolol I10: Essential (primary) hypertension 5. Carotid artery stenosis - s/p right stent Continue to follow with vascular I65.29: Occlusion and stenosis of unspecified carotid artery Plan: Continue guideline directed medical therapy for coronary artery disease including aspirin, moderate to high intensity statin therapy; given his age range 40 mg of Lipitor would be recommended, and a beta-marilyn. He will need serial monitoring for his prostatic aortic valve; we will repeat an echocardiogram in June of this year He has no symptoms that would warrant an ischemic (more content not included)... [facility] Evaluation note* Encounter Date Diagnosis Assessment Notes Treatment Notes Treatment Clinical Notes Apr, Carotid stenosis, bilateral (ICD-10 - I65.23) We reviewed today's carotid duplex studies which remained stable . This is stable from last year. Patient remains asymptomatic of his carotid occlusive disease and on good medical therapy with use of aspirin and Plavix medications daily. His statin medication is temporarily on hold per his PCP. We will continue to follow him along on a routine basis and see him again next year for surveillance duplex studies. He knows to call us in the meantime with any issues. He verbalizes understanding of all discussion, agrees with this plan, denies any questions. [facility] Other 06-10-2022 Hospital Discharge instructions Patient Education 04/19/2022 10:54:30 Kidney Stones, Cimu-aq-Mtno Kidney Stones Kidney stones are rock-like masses that form inside of the kidneys. Kidneys are organs that make pee (urine). A kidney stone may move into other parts of the urinary tract, including: The tubes that connect the kidneys to the bladder (ureters). The bladder. The tube that carries urine out of the body (urethra). Kidney stones can cause very bad pain and can block the flow of pee. The stone usually leaves your body (passes) through your pee. You may need to have a doctor take out the stone. What are the causes? Kidney stones may be caused by: A condition in which certain glands make too much parathyroid hormone (primary hyperparathyroidism). A buildup of a type of crystals in the bladder made of a chemical called uric acid. The body makes uric acid when you eat certain foods. Narrowing (stricture) of one or both of the ureters. A kidney blockage that you were born with. Past surgery on the kidney or the ureters, such as gastric bypass surgery. What increases the risk? You are more likely to develop this condition if: You have had a kidney stone in the past. You have a family history of kidney stones. You do not drink enough water. You eat a diet that is high in protein, salt (sodium), or sugar. You are overweight or very overweight (obese). What are the signs or symptoms? Symptoms of a kidney stone may include: Pain in the side of the belly, right below the ribs (flank pain). Pain usually spreads (radiates) to the groin. Needing to pee often or right away (urgently). Pain when going pee (urinating). Blood in your pee (hematuria). Feeling like you may vomit (nauseous). Vomiting. Fever and chills. How is this treated? Treatment depends on the size, location, and makeup of the kidney stones. The stones will often pass out of the body through peeing. You may need to: Drink more fluid to help pass the stone. In some cases, you may be given fluids through an IV tube put into one of your veins at the hospital. Take medicine for pain. Make changes in your diet to help keep kidney stones from coming back. Sometimes, medical procedures are needed to remove a kidney stone. This may involve: A procedure to break up kidney stones using a beam of light (laser) or shock waves. Surgery to remove the kidney stones. Follow these instructions at home: Medicines Take mlkw-nwh-fffzkjq and prescription medicines only as told by your doctor. Ask your doctor if the medicine prescribed to you requires you to avoid driving or using heavy machinery. Eating and drinking Drink enough fluid to keep your pee pale yellow. You may be told to drink at least 8 10 glasses of water each day. This will help you pass the stone. If told by your doctor, change your diet. This may include: ?Limiting how much salt you eat. ?Eating more fruits and vegetables. ?Limiting how much meat, poultry, fish, and eggs you eat. Follow instructions from your doctor about eating or drinking restrictions. General instructions Collect pee samples as told by your doctor. You may need to collect a pee sample: ?24 hours after a stone comes out. ?8 12 weeks after a stone comes out, and every 6 12 months after that. Strain your pee every time you pee (urinate), for as long as told. Use the strainer that your doctor recommends. Do not throw out the stone. Keep it so that it can be tested by your doctor. Keep all follow-up visits as told by your doctor. This is important. You may need follow-up tests. How is this prevented? To prevent another kidney stone: Drink enough fluid to keep your pee pale yellow. This is the best way to prevent kidney stones. Eat healthy foods. Avoid certain foods as told by your doctor. You may be told to eat less protein. Stay at a healthy weight. Where to find more information National Kidney Foundation (NKF): www.kidney.org [facility] (UCF): www.urologyhealth.org Contact a doctor if: You have pain that gets worse or does not get better with medicine. Get help right away if: You have a fever or chills. You get very bad pain. You get new pain in your belly (abdomen). You pass out (faint). You cannot pee. Summary Kidney stones are rock-like masses that form inside of the kidneys. Kidney stones can cause very bad pain and can block the flow of pee. The stones will often pass out of the body through peeing. Drink enough fluid to keep your pee pale yellow. This information is not intended to replace advice given to you by your health care provider. Make sure you discuss any questions you have with your health care provider. Document Released: 04/14/2009 Document Revised: 03/14/2020 Document Reviewed: 03/14/2020 [employer] Patient Education 2019 [employer] Follow Up Care 08/27/2021 10:53:23 With:Puma LOYA MD, URL Address: [facility] [address], [place] [address]- [phone] When:04/19/2023 [facility] evaluation + Plan note Future Appointments Appointment Date:04/21/2023 09:45:00 AM Scheduled Provider:Puma LOYA MD Location:[facility] Appointment Type:URO Office Visit [facility] evaluation + Plan note Future Appointments Appointment Date:08/30/2024 10:30:00 AM Scheduled Provider:Puma LOYA MD Location:[facility] Appointment Type:URO Office Visit [facility] evaluation noteNo assessment information available [facility] Work Phone: Evaluation note* Diagnosis Onset Date Resolution Status Viral URI acute [facility] Work Phone: Evaluation noteNo InformationNortThe [facility] [employer] Other Hisancs general Narrative - Reported* Type Description Date Medical History carotid stenosis Medical History HTN Surgical History heart valve replaced 2013 Surgical History left internal carotid angioplas ty and stent 2011 [place] [employer] Other Hisxwck general Narrative - Reported* Type Description Date Medical History carotid stenosis Medical History HTN Medical History S/P aortic valve replacement Medical History 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 Medical History Benign prostatic hyp erplasia with lower urinary tract symptoms Medical History Mild episode of recurrent major depressive disorder Medical History Lumbar spondylosis with myelopat hy Medical History Hyperlipidemia type II Medical History ASHD (arteriosclerotic heart dis ease) Medical History Pure hypercholesterolemia Medical History High risk medication use Medical History Myalgia Medical History Renal cyst Medical History Primary insomnia Medical History Hematuria, gross Medical History Adenomatous polyp of sigmoid col on Medical History Malaise Medical History Nonrheumatic aortic (valve) sten osis Surgical History heart valve replaced 2013 Surgical History left internal carotid angioplas ty and stent 2011 Surgical History CYSTOSCOPY 2019 Surgical History COLONOSCOPY 2020 Surgical History EGD 2020 Surgical History ESWL, KIDNEY, RIGHT 2019 Hospitalization History SEE SURGICAL HX [facility] Other History general Narrative - Reported* Type Description Date Medical History carotid stenosis Medical History HTN Medical History S/P aortic valve replacement Medical History 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 Medical History Benign prostatic hyp erplasia with lower urinary tract symptoms Medical History Mild episode of recurrent major depressive disorder Medical History Lumbar spondylosis with myelopat hy Medical History Hyperlipidemia type II Medical History ASHD (arteriosclerotic heart dis ease) Medical History Pure hypercholesterolemia Medical History High risk medication use Medical History Myalgia Medical History Renal cyst Medical History Primary insomnia Medical History Hematuria, gross Medical History Adenomatous polyp of sigmoid col on Medical History Malaise Medical History Nonrheumatic aortic (valve) sten osis Surgical History heart valve replaced 2013 Surgical History left internal carotid angioplas ty and stent 2011 Surgical History CYSTOSCOPY 2019 Surgical History COLONOSCOPY 2019 Surgical History EGD 2019 Surgical History ESWL, KIDNEY, RIGHT 2019 Surgical History ESWL, right kidney 05/2023 Hospitalization History SEE SURGICAL HX [facility] Other Hospital course Narrative No data available for this section [facility] progress note No data available for this section [facility] reason for referral (narrative)* Reason Referral for lumbar foraminal stenosis and left lower extremity weakness. 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 372) Referral Organization [facility] [employer] Referring Provider First Name Timbo Referring Provider Last Name Jovanni Referring Provider Specialty Internal Ri dicine Referred Organization [facility] Referred Provider oBby Mai Referred Address [address] [place], [place],[address] Referred Provider Specialty Neurological Surgery Referral Priority Routine General Notes Mr. 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 He was seen 3 years ago with surgery recommended. However, he declined surgery and has been tolerating his symptoms. Recently, he has noticed an increased discomfort and more problems with his left sided foot drop. I have suggested reimaging the lumbar spine with referral to Neurosurgery for evaluation and treatment. I have also recommended use of an AFO brace. He may benefit from PT, which can be ordered after his Neurosurgical appointment. Clinical Notes Include recent and p revious MRI [facility] Other Chief Complaint and Reason for Visit Chief Complaint i65.23 Chief Complaint drainage in throat Reason for Visit Viral URI Chief Complaint I65.23 Chief Complaint I70.213 Advance Directives No Advanced Directives Records Found Advance Directive Response Recorded Date/ Time Advance Directives No March 08, 019 1:37pm Summary Purpose Family History No Family History Records Found No data available for this section No Family History Records FoundNo Family History Records FoundNo Family History Records Found Additional Source Comments Care Teams (unrecognized sec tion and content) Team Status: Inactive Member Role Status Dates Timbo Baig , DO Primary Care Provider Active Jaylon Finnegan MD Attending Provider Active Team Status: Active Member Role Status Dates Timbo Baig , Primary Care Provider Active Team Status: Inactive Member Role Status Dates ANDERSON Almaraz Attending Provider Active Team Status: Inactive Member Role Status Dates Timbo Baig , Primary Care Provider Active FREEMAN Cabrera Attending Provider Active Goals (unrecognized section and content) Goals may be documented in a n alternate section REASON FOR VISIT (unrecogniz ed section and content) VASC 1 YR FU; CAROTID DUPLEX 1PWELLNESS MBNo InformationERRORMedication Clarification4 month follow up; CHING's B/L legs at 11:006 month Follow up6 month Follow upMRI resultsface to face for AFO brace- fax note to [phone] (unrecognized sect ion and content) No Status Records FoundNo Status Records FoundNo Status Records FoundNo Status Records Found INFORMATION SOURCE (unrecogn ized section and content) DATE CREATED AUTHOR 03/25/2023 Hipolito roque DATE CREATED AUTHOR AUTHOR'S ORGANIZ ATION 09/14/2023 [facility] DATE CREATED AUTHOR AUTHOR'S ORGANIZ ATION 10/24/2023 [facility] DATE CREATED AUTHOR AUTHOR'S ORGANIZ ATION 12/18/2023 [facility] FOR RECORDS PERTAINING TO PATIENTS WHO ARE OR HAVE BEEN ENROLLED IN A CHEMICAL DEPENDENCY/SUBSTANCEABUSE PROGRAM, SOME INFORMATION MAY BE OMITTED. This clinical summary was aggregated from multiple sources. Caution should be exercised in using it in the provision of clinical care. This summary normalizes information from multiple sources, and as a consequence, information in this document may materially change the coding, format and clinical context of patient data. In addition, data may be omitted in some cases. CLINICAL DECISIONS SHOULD BE BASED ON THE PRIMARY CLINICAL RECORDS. [facility] [employer] provides no warranty or guarantee of the accuracy or completeness of information in this document.
[2023-12-26 10:50] LABS: Anion Gap 12.5; BUN Creatinine Ratio 15.7; Calcium 9.3 mg/dL (8.5-10.1); Carbon Dioxide 28.4 mmol/L (21.0-32.0); Chloride 101 mmol/L (98-107); Estimated GFR (African America >60 (>=60); Estimated GFR (Non-African Ame 58 (>=60); Glucose 117 mg/dL (74-106); Potassium 3.9 mmol/L (3.5-5.1); Sodium 138 mmol/L (136-145)
== END 2023-12-26 08:34 | disposition home or self-care (01) ==
LOC: LAB 08:35
PROVIDERS: PCP Internal Medicine; Visit Provider Nurse Practitioner Family
DX: I50.33 Acute on chronic diastolic (congestive) heart failure (principal)
CPT/HCPCS: 36415; 80048

== ENCOUNTER 2024-01-09 12:09 | Outpatient (OUT) | payer MEDICARE, OTHER, SELFPAY ==
--- OUTSIDE RECORDS SUMMARY | 2024-01-09 12:15 | XMS_ITS | CCD ---
Author Name Unknown Address [address] [place] [address] Organization [facility] Care Team Providers Care Bilingual Loan Processor Name Role Phone TIMBO BAIG Primary Care Physician DO Timbo Baig Primary Care Provider MD Jaylon Finnegan Attending Provider Niya Baker Unavailable Timbo Baig Unavailable JOVANNI, [...] Unavailable REINIER ., DR MCMAHON Consulting Unavailable BEDFORD, DR IVY Jenkins Consulting Unavailable ANDERSON Ann Attending Provider DO Timbo Baig Primary Care Provider [phone] FREEMAN Baker Attending Provider Jaylon Finnegan Unavailable [phone] DO Timbo Baig Primary Care Provider [phone] FREEMAN Baker Attending Provider Niya Baker Admitting Unavailable Niya Baker Attending Unavailable Jovanni, Timbo Primary Care Unavailable Niya Baker Admitting Unavailable Niya Baker Attending Unavailable Timbo Baig Primary Care Unavailable Puma LOYA Attending Unavailable Puma LOYA Attending Unavailable Puma LOYA Attending Unavailable Puma LOYA Attending Unavailable TITA JJ Attending Unavailable Allergies Allergy Classification Reported Allergen(s) Allergy Type Date of Onset Reaction(s) Facility (1 source) patient allergy list reviewed by nurse or physicia Propensity to adverse reactions Comment:Done [facility] Other (1 source) No Known Medication Allergies; Translations: [No Known Medication Allergies] Propensity to adverse reactions (disorder) [facility] Repository Medications Current Medications Medication Drug Class(es) [...] Daily, # 90 tab(s), Refills(s) 3, Pharmacy: [facility], 152, cm, 04/19/22 10:18:00 EDT, Height/Length Dosing, 89.2, kg, 04/19/22 10:18:00 EDT, Weight Dosing Start Date: 02/12/23 Status: Ordered Finasteride Acti ve hydroCHLOROthiazide 12.5 mg oral capsule (13 sources) Thiazide Diuretic Start: 08-25-2023 take 1 capsule by mouth once daily hydrochlorothiazide 12.5 mg Cap 12.5 mg = 1 cap(s), Oral, Daily, # 90 cap(s), Refills(s) 3, Pharmacy: [facility], 178, cm, 08/25/23 12:26:00 EDT, Height/Length Dosing, 90, kg, 08/25/23 12:26:00 EDT, Weight Dosing Start Date: 08/25/23 Status: Ordered Start: 12-28-2021 take 1 capsule by mo [facility] once daily hydrochlorothiazide 12.5 mg Cap 12.5 mg = 1 cap(s), Oral, Daily, # 90 cap(s), Refills(s) 3, Pharmacy: [facility], 152, cm, 08/27/21 10:12:00 EDT, Height/Length [...] Daily, # 90 cap(s), Refills(s) 3, Pharmacy: [facility], 178, cm, 08/25/23 12:26:00 EDT, Height/Length [...] Coronary arteriosclerosis; Translations: [Atherosclerotic heart disease of [place] coronary artery without angina pectoris] Onset: 09-15-2018 05-17-2019 Chronic Coronary atherosclerosis and other heart disease (1 source) Coronary atherosclerosis and other heart disease; Translations: [Atherosclerosis of [place] arteries of extremities with intermittent claudication, bilateral [...] sources) H/O: high risk medication; Translations: [Other longterm (current) drug therapy] Episodic Other aftercare (5 sources) Long-term current use of drug therapy; Translations: [Other terminal clerk (current) drug therapy] Episodic Other and unspecified [...] and due to atherosclerosis; Translations: [Atherosclerosis of [place] arteries of extremities with intermittent claudication, bilateral [...] Onset: 09-18-2018 Other aftercare (5 sources) Other longterm (current) drug therapy; Translations: [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] Onset: 09-25-2022 Episodic Other [...] fluids a day *Limit sodium/salt intake Normal [facility] Office Visiton 12-17-2023 Follow-up visit [id number] Kang Brady 1940 M Date Provider Department Center 12/17/2023 Manoj-TITA JJ CARD [place] [facility] Family History Problem Relation Age of Onset No Known Problems Mother No Known Problems Father Family Status - Relation Status Age at Mother Father Level of Service:57619 [place] OFFICE/OUTPATIENT ESTABLISHED MOD MDM 30 MIN Normal [facility] Urology Office/Clinic Noteon 10-22-2023 Urology Office/Clinic Note Chief Complaint kidney stone and BPH with urinay obstruction HPI Staff 83 yo male here for 3 month f/u with metabolic workup and KUB. Previous Dx: kidney stone, BPH with obstruction. S/p R ESWL 05/22/23. KUB done 07/21/23 at [facility]. Metabolic workup done 07/22/23. Taking HCTZ 12.5mg [...] When Contact Information REINIER HUSAIN, Puma Jaramillo, RAUL In 1 year [facility] [address], [place] [address]- Additional Instructions: w/KUB Patient Education Dietary Guidelines to Help Prevent Kidney Stones I, Leelee Ventura , personally scribed for Dr. Loya on 08/25/2023 13:30:29. . 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 Normal [facility] Comment on above: Result Comment: Elec tronically Signed By: Puma LOYA MD\.br\Date and Time Signed: 10/22/23 13:49 EST\.br\Electronically Co-Signed By: Leelee Ventura\.br\Date and Time Co-Signed: 08/25/23 13:30 EDT US ankle/arm indiceson 09-04 US ankle/arm indices [facility] [place] [address] [place] [address] Ultrasound Report Signed Patient: Kang Brady MR#: [id number] 11 : 1940 Acct:[id number] Age/Sex: 83 / M ADM Date: 09/04/23 Loc: [facility] Room: Type: [facility] Attending Dr: Niya Baker GROUP WORK PROGRAM DIRECTOR-C Ordering Provider: Niya Baker APRN Date of [...] Jaylon Finnegan MD09/04/2023 1:02 PM Dictation Location: [place] [address] Tech: Pam Sheehan Transcribed By: [facility] 09/04/23 1302 Dictated By: Jaylon Finnegan MD 09/04/23 1301 Signed By: 09/04/23 1302 [facility] Patient Educationon 08-25-20 Patient Education [...] Spinach (cooked), rhubarb, beets, sweet potatoes, and Albanian chard. ? Peanuts. ? Potato chips, ecuadorean fries, and baked potatoes with skin on. ? Nuts and nut products. ? Chocolate. ? If you regularly take a diuretic medicine, make sure to eat at least 1 or 2 servings of fruits or vegetables that are high in potassium each day. These include: ? Avocado. ? Banana. ? Robertson, prune, carrot, or tomato juice. ? Baked [...] fish oil, or vitamin B6. ? Take pzxj-fit-axdawlz and prescription medicines only as told by your health care provider. These include supplements. What foods should I limit? Limit your in (more content not included)... Normal [facility] Lab Reportson 07-29-2023 Lab Reports [id number] 5#1.00CD:127 Normal [facility] Lab Reportson 07-28-2023 Lab Reports [id number] 4#1.00CD:127 Normal [facility] Lab Reportson 07-24-2023 Lab Reports [id number] 8#1.00CD:127 Normal [facility] Lab Reportson 07-23-2023 Lab Reports [id number] C3#1.00CD:127 Normal [facility] Lab Reports [id number] BB#1.00CD:127 Normal [facility] RAD - MISCon 07-22-2023 RAD - MISC [id number] 7#1.00CD:127 Normal [facility] Formson 2023 Forms [id number] A9#1.00CD:127 Normal [facility] RAD - MISCon 05-23-2023 RAD - MISC [id number] B3#1.00CD:127 [facility] Operative Reporton Operative Report [id number] F8#1.00CD:127 [facility] Lab Reportson 05-19-2023 Lab Reports [id number] 7F#1.00CD:127 [facility] Lab Reports [id number] 869#1.00CD:127 [facility] RAD - MISCon 05-19-2023 RAD - MISC [id number] 42#1.00CD:127 [facility] Consent for Procedure/Surger yon 05-05-2023 Consent for Procedure/Surgery [id number] 3E#1.00CD:127 [facility] Formson 05-05-2023 Forms [id number] 1#1.00CD:127 [facility] US carotid doppler BIon - US carotid doppler [address] [address] Ultrasound Report Signed Patient: Kang Brady MR#: [id number] 11 : 1940 Acct:[id number] Age/Sex: 82 / M ADM Date: 05/01/23 Loc: [facility] Room: Type: [facility] Attending Dr: Niya Baker GROUP WORK PROGRAM DIRECTORMikyC Ordering Provider: Niya Baker APRN Date of [...] MD 05/02/23 1019 Signed By: 05/02/23 1021 [facility] [id number] 1D#1.00CD:127 Normal [facility] Ambulatory Visit Summaryon 0 04-21-2023 Ambulatory Visit Summary KANG BRADY :1940 Visit Date:04/21/2023 Ambulatory Visit Instructions Your Diagnosis Kidney stone BPH with urinary obstruction Tests Performed Urnls Dip Stick Auto w/o Microscopy POC 34144 XR Abdomen 1 View -- Results Pending -- Please visit your patient portal for your results or contact your primary care physician. Your Care Team Attending Physician - Puma LOYA MD Primary Care Physician - TIMBO BAIG DO [...] ultrasound guidance (2001), Cystoscopy, Hemorrhoidectomy, Hernia, Urodynamics. Discharge Vitals Heart Rate (Peripheral) 72 Respiratory Rate 16 Blood Pressure 130/82 Height 152 cm Height 60 in Weight 89 kg Weight 195.8 lb BMI 38.52 What to do next Scheduled Follow-Up Appointments Friday 10:15 AM EDT With: REINIER HUSAIN, Puma Jaramillo Where: [facility] Patient Educationon 04-21-20 Patient Education Nephrology Dietary [...] Spinach (cooked), rhubarb, beets, sweet potatoes, and Albanian chard. ? Peanuts. ? Potato chips, ecuadorean fries, and baked potatoes with skin on. ? Nuts and nut products. ? Chocolate. ? If you regularly take a diuretic medicine, make sure to eat at least 1 or 2 servings of fruits or vegetables that are high in potassium each day. These include: ? Avocado. ? Banana. ? Robertson, prune, carrot, or tomato juice. ? Baked [...] fish oil, or vitamin B6. ? Take ogcy-gpd-ndvbosd and prescription medicines only as told by your health care provider. These include supplements. What foods should I limit? Limit your in (more content not included)... Normal 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 Normal [facility] Comment on above: Result Comment: Elec tronically Signed By: Puma LOYA MD\.br\Date and Time Signed: 04/21/23 10:29 EDT\.br\Electronically Co-Signed By: Pastora Ding\.br\Date and Time Co-Signed: 04/21/23 10:26 EDT Laboratory - Microbiology an d Antimicrobial susceptibilityOrdered By: Aury Ann on 04-12-2023 S. pyogenes Ag IA Ql (Unsp spec) [facility] No Panel InformationOrdered By: Aury Ann on 04-12-2023 Flu B [facility] CBC AUTO DIFFon 09-25-2022 BASO # 0.0 103/ul Normal 0.0-0.1 [facility] Comment on above: Performed By: #### C BC #### [facility] [address] [place] [address] Dr. Giacomo Mace Basophils/100 WBC (Bld) 0.5 % Normal 0.2-2.0 [facility] Comment on above: Performed By: #### C BC #### [facility] [address] [place] [address] [address] Giacomo Mace EO # 0.4 103/ul Normal 0.0-0.7 [facility] Comment on above: Performed By: #### C BC #### [facility] [address] [place] [address] [address] Giacomo Mace Eosinophils/100 WBC (Bld) 7.0 % Normal 0.9-7.0 [facility] Comment on above: Performed By: #### C BC #### [facility] [address] [place] [address] Dr. Giacomo Mace Erythrocyte distribution width (RBC) [Ratio] 14.6 % Normal 11.0-15.0 [facility] Comment on above: Performed By: #### C BC #### [facility] [address] [place] [address] Dr. Giacomo Mace Hematocrit (Bld) [Volume fraction] 46.9 % Normal 42.0-54.0 [facility] Comment on above: Performed By: #### C BC #### [facility] [address] [place] [address] Dr. Giacomo Mace Hemoglobin (Bld) [Mass/Vol] 15.1 g/dL Normal 14.0-18.0 [facility] Comment on above: Performed By: #### C BC #### [facility] [address] [place] [address] Dr. Giacomo Mace IG # 0.02 10e3/ul Normal 0.00-0.03 [facility] Comment on above: Performed By: #### C BC #### [facility] [address] [place] [address] Dr. Giacomo Mace IG % 0.4 % Normal 0.0-0.5 [facility] Comment on above: Performed By: #### C BC #### [facility] [address] [place] [address] Dr. Giacomo Mace LYMPH # 1.4 103/ul Normal 1.2-3.8 [facility] Comment on above: Performed By: #### C BC #### [facility] [address] [place] [address] Dr. Giacomo Mace Lymphocytes/100 WBC (Bld) 25.3 % Normal 20.5-60.0 [facility] Comment on above: Performed By: #### C BC #### [facility] [address] [place] [address] Dr. Giacomo Mace MANUAL DIFF REQ NO Normal [facility] Comment on above: Performed By: #### C BC #### [facility] [address] [place] [address] Dr. Giacomo Mace MCH (RBC) [Entitic mass] 29.6 pg Normal 25.9-34.0 [facility] Comment on above: Performed By: #### C BC #### [facility] [address] [place] [address] Dr. Giacomo Mace MCHC (RBC) [Mass/Vol] 32.2 g/dL Normal 29.9-35.2 [facility] Comment on above: Performed By: #### C BC #### [facility] [address] [place] [address] Dr. Giacomo Mace MCV (RBC) [Entitic vol] 92.0 fL Normal 80.0-94.0 [facility] Comment on above: Performed By: #### C BC #### [facility] [address] [place] [address] Dr. Giacomo Mace MONO # 0.6 103/ul Normal 0.3-0.8 [facility] Comment on above: Performed By: #### C BC #### [facility] [address] [place] [address] Dr. Giacomo Mace Monocytes/100 WBC (Bld) 10.4 % Normal 1.7-12.0 [facility] Comment on above: Performed By: #### C BC #### [facility] [address] [place] [address] Dr. Giacomo Mace NEUT # 3.2 103/ul Normal 1.4-6.5 [facility] Comment on above: Performed By: #### C BC #### [facility] [address] [place] [address] Dr. Giacomo Mace Neutrophils/100 WBC (Bld) 56.4 % Normal 43.0-75.0 [facility] Comment on above: Performed By: #### C BC #### [facility] [address] [place] [address] Dr. Giacomo Mace Platelet mean volume (Bld) [Entitic vol] 10.5 fL Normal 9.5-13.5 [facility] Comment on above: Performed By: #### C BC #### [facility] [address] [place], [place] [address] Dr. Giacomo Mace PLT 227 103/ul Normal 150-450 [facility] Comment on above: Performed By: #### C BC #### [facility] [address] [place] [id number] Giacomo Mace RBC 5.10 106/ul Normal 4.70-6.10 [facility] Comment on above: Performed By: #### C BC #### [facility] [address] [place] [address] [address] Giacomo Mace WBC 5.7 103/ul Normal 4.0-11.0 [facility] Comment on above: Performed By: #### C BC #### [facility] [address] [place] [address] [address] Giacomo Mace LIPID PROFILEon 09-25-2022 CHOL-HDL RATIO NORM SEE BELOW Normal [facility] Comment on above: Result Comment: 3.3 - 4.4 LOW RISK 4.4 - 7.1 AVERAGE RISK 7.1 - 11.0 MODERATE RISK >11.0 HIGH RISK Performed By: #### B MP, LIPID #### [facility] [address] [place] [address] Dr. Giacomo Mace Cholesterol [Mass/Vol] 219 mg/dL Critically high <=200 [facility] Comment on above: Performed By: #### B MP, LIPID #### [facility] [address] [place] [address] [address] Giacomo Mace Cholesterol in HDL [Mass/Vol] 61 mg/dL Critically high 40-60 [facility] Comment on above: Performed By: #### B MP, LIPID #### [facility] [address] [place] [address] [address] Giacomo Mace Cholesterol in LDL [Mass/Vol] 136.4 mg/dL Normal [facility] Comment on above: Performed By: #### B MP, LIPID #### [facility] [address] [place] [address] [address] Giacomo Mace Cholesterol.total/Cholest jose elias in HDL [Mass ratio] 3.6 {ratio} Normal [facility] Comment on above: Performed By: #### B MP, LIPID #### [facility] [address] [place] [address] [address] Giacomo Mace HDL NORMAL > or = 60 mg/dl - LOW CARDIOVASCULAR RISK <40 mg/dl - HIGH CARDIOVASCULAR RISK Normal [facility] Comment on above: Performed By: #### B MP, LIPID #### [facility] [address] [place] [address] [address] Giacomo Mace LDL CALC NORMAL SEE BELOW Normal [facility] Comment on above: Result Comment: <100 mg/dl OPTIMAL 100 - 129 mg/dl NEAR OR ABOVE OPTIMAL 130 - 159 mg/dl BORDERLINE HIGH 160 - 189 mg/dl HIGH >190 mg/dl VERY HIGH Performed By: #### B MP, LIPID #### [facility] [address] [place] [address] Dr. Giacomo Mace Triglyceride [Mass/Vol] 108 mg/dL Normal <=150 [facility] Comment on above: Performed By: #### B MP, LIPID #### [facility] [address] [place] [address] Dr. Giacomo Mace VLDL CALC 21.6 mg/dL Normal [facility] Comment on above: Performed By: #### B MP, LIPID #### [facility] [address] [place] [address] Dr. Giacomo Mace PROF CHEM 8 (BAS METB)on Anion gap [Moles/Vol] 9.6 mmol/L Normal [facility] Comment on above: Performed By: #### B MP, LIPID #### [facility] [address] [place] [address] Dr. Giacomo Mace Calcium [Mass/Vol] 9.3 mg/dL Normal 8.5-10.1 [facility] Comment on above: Performed By: #### B MP, LIPID #### [facility] [address] [place] [address] Dr. Giacomo Mace Chloride [Moles/Vol] 104 mmol/L Normal 98-107 [facility] Comment on above: Performed By: #### B MP, LIPID #### [facility] [address] [place] [address] [address] Giacomo Mace CO2 [Moles/Vol] 27.8 mmol/L Normal 21.0-32.0 [facility] Comment on above: Performed By: #### B MP, LIPID #### [facility] [address] [place] [address] Dr. Giacomo Mace Creatinine [Mass/Vol] 1.08 mg/dL Normal 0.70-1.30 [facility] Comment on above: Performed By: #### B MP, LIPID #### [facility] [address] [place] [address] Dr. Giacomo Mace EGFR-AF GREENLANDIC >60 Normal >=60 [facility] Comment on above: Performed By: #### B MP, LIPID #### [facility] [address] [place] [address] Dr. Giacomo Mace EGFR-NON AF GRE[place]IC >60 Normal >=60 [facility] Comment on above: Performed By: #### B MP, LIPID #### [facility] [address] [place] [address] Dr. Giacomo Mace Glucose [Mass/Vol] 111 mg/dL Critically high 74-106 [facility] Comment on above: Performed By: #### B MP, LIPID #### [facility] [address] [place] [address] Dr. Giacomo Mace Potassium [Moles/Vol] 4.4 mmol/L Normal 3.5-5.1 [facility] Comment on above: Performed By: #### B MP, LIPID #### [facility] [address] [place] [address] Dr. Giacomo Mace Sodium [Moles/Vol] 137 mmol/L Normal 136-145 [facility] Comment on above: Performed By: #### B MP, LIPID #### [facility] [address] [place] [address] Dr. Giacomo Mace Urea nitrogen [Mass/Vol] 27.0 mg/dL Critically high 7.0-18 .0 [facility] Comment on above: Performed By: #### B MP, LIPID #### [facility] [address] [place] [address] Dr. Giacomo Maec Urea nitrogen/Creatinine [Mass ratio] 25.0 mg/mg Normal [facility] Comment on above: Performed By: #### B MP, LIPID #### [facility] [address] [place], [place] [address] Dr. Giacomo Mace ECHOCARDIO M/2D COMPLETEon 0 07-09-2022 ECHOCARDIO M/2D COMPLETE Patient: KANG BRADY Exam Date: 07/09/2022 : 1940 Gender:M Ordering : TITA JJ [facility] Admission #: [id number] Family : DR TIMBO BAIG D.O. Order #: [id number] CLICK HERE TO VIEW EXAM ECHOCARDIOGRAM REPORT [...] Davis M.D. on 07/10/2022 at 14:46 Normal [facility] CPKon 04-27-2022 CK [Catalytic activity/Vol] 96 U/L Normal 39-308 [facility] Comment on above: Performed By: #### C RP, CK #### [facility] [address] [place] [address] Dr. Giacomo Mace CRPon 04-27-2022 CRP [Mass/Vol] mg/L Normal <=1.0 [facility] Comment on above: Performed By: #### C RP, CK #### [facility] [address] [place] [address] Dr. Giacomo Mace ELECTROLYTESon 04-18-2022 Anion gap [Moles/Vol] 11.8 mmol/L Normal [facility] Comment on above: Performed By: #### E LEC #### [facility] [address] [place] [address] Dr. Giacomo Mace Chloride [Moles/Vol] 104 mmol/L Normal 98-107 [facility] Comment on above: Performed By: #### E LEC #### [facility] [address] [place] [address] Dr. Giacomo Mace CO2 [Moles/Vol] 27.5 mmol/L Normal 21.0-32.0 [facility] Comment on above: Performed By: #### E LEC #### [facility] [address] [place] [address] [address] Giacomo Mace Potassium [Moles/Vol] 4.3 mmol/L Normal 3.5-5.1 [facility] Comment on above: Performed By: #### E LEC #### [facility] [address] [place] [address] [address] Giacomo Mace Sodium [Moles/Vol] 139 mmol/L Normal 136-145 [facility] Comment on above: Performed By: #### E LEC #### [facility] [address] [address] [address] Giacomo Mace XR KUB 1 VIEWon [...] by: IVY DOMINGUEZ Date: 2022-04-18 08:04 Normal [facility] Vital Signs Date Time Vital Sign Value Performing Clinician Facility 11-21-2023 10:30-0500 Body height 177.8 cm [employer] Other [facility] Other 11-21-2023 10:30-0500 Body mass index (BMI) [Ratio] 29.12 kg/m2 [employer] Other [facility] Other 11-21-2023 10:30-0500 Body weight 92.08 kg [employer] Other [facility] Other 11-21-2023 10:30-0500 Diastolic blood pressure 66 mm[Hg] [employer] Other [facility] Other 11-21-2023 10:30-0500 Respiratory rate 12 /min Timbo Ball Other [facility] Other 11-21-2023 10:30-0500 Systolic blood pressure 103 mm[Hg] Timbo Ball Other [facility] Other 09-24-2023 11:00-0500 Body height 177.8 cm Timbo Ball Other [facility] Other 09-24-2023 11:00-0500 Body mass index (BMI) [Ratio] 28.69 kg/m2 Timbo Ball Other [facility] Other 09-24-2023 11:00-0500 Body weight 90.72 kg Timbo Ball Other [facility] Other 09-24-2023 11:00-0500 Diastolic blood pressure 73 mm[Hg] Timbo Ball Other [facility] Other 09-24-2023 11:00-0500 Respiratory rate 12 /min Timbo Ball Other [facility] Other 09-24-2023 11:00-0500 Systolic blood pressure 134 mm[Hg] Timbo Ball Other [facility] Other 08-25-2023 12:21-0400 Blood Pressure Location Puma LOYA [facility] 08-25-2023 12:21-0400 Diastolic blood pressure 82 mm[Hg] Puma LOYA [facility] 08-25-2023 12:21-0400 Heart rate 80 /min Puma LOYA [facility] 10-16-2023 12:21-0400 Respiratory rate 16 /min Puma LOYA [facility] 08-25-2023 12:21-0400 Systolic blood pressure 137 mm[Hg] Puma LOYA [facility] 04-12-2023 09:16-0400 Body temperature 97 [degF] PA Aury Shehorn Work Phone: [facility] 04-12-2023 09:16-0400 Body weight 88.45 kg PA Aury Shehorn Work Phone: [facility] 04-12-2023 09:16-0400 Diastolic blood pressure 62 mm[Hg] PA Aury Shehorn Work Phone: [facility] 04-12-2023 09:16-0400 Heart rate 80 /min PA Aury Shehorn Work Phone: [facility] 04-12-2023 09:16-0400 SaO2% (BldA) [Mass fraction] 96 % PA Aury Shehorn Work Phone: [facility] 04-12-2023 09:16-0400 Systolic blood pressure 123 mm[Hg] PA Aury Shehorn Work Phone: [facility] 03-24-2023 12:00-0400 Body height 177.8 cm [employer] Other [employer] [facility] [employer] Other 03-24-2023 12:00-0400 Body mass index (BMI) [Ratio] 28.44 kg/m2 Timbo [employer] Other [facility] Other 03-24-2023 12:00-0400 Body weight 89.9 kg Timbo Ball Other [facility] Other 03-24-2023 12:00-0400 Diastolic blood pressure 67 mm[Hg] Timbo Ball Other [facility] Other 03-24-2023 12:00-0400 Respiratory rate 12 /min Timbo Ball Other [facility] Other 03-24-2023 12:00-0400 Systolic blood pressure 123 mm[Hg] Timbo Ball Other [facility] Other 04-29-2022 14:30-0400 Body height 177.8 cm Niya Baker Other [facility] Other 04-29-2022 14:30-0400 Body mass index (BMI) [Ratio] 28.69 kg/m2 Niya Baker Other [facility] Other 04-29-2022 14:30-0400 Body temperature 96.3 [degF] Niya Baker Other [facility] Other 04-29-2022 14:30-0400 Body weight 90.72 kg Niya Baker Other [facility] Other 04-29-2022 14:30-0400 Diastolic blood pressure 80 mm[Hg] Niya Chowjorge Other [facility] Other 04-29-2022 14:30-0400 SaO2% (BldA) [Mass fraction] 98 % Niya Chowchrisconstance Other [facility] Other 04-29-2022 14:30-0400 Systolic blood pressure 120 mm[Hg] Niya Chowchriso Other [facility] Other 04-19-2022 10:04-0400 Blood Pressure Location [facility] Panchal [facility] 04-19-2022 10:04-0400 Diastolic blood pressure 84 mm[Hg] Puma LOYA [facility] 04-19-2022 10:04-0400 Heart rate 67 /min Puma LOYA [facility] 04-19-2022 10:04-0400 Respiratory rate 16 /min Puma LOYA [facility] [employer] 04-19-2022 10:04-0400 Systolic blood pressure 143 mm[Hg] Puma LOYA [facility] [employer] Encounters Encounter Date Encounter Type Care Provider Facility Start: 12-17-2023 End: 12-17-2023 ambulatory [facility] Start: 11-21-2023 End: 11-21-2023 ambulatory Timbo Jovanni Other [facility] Other Start: 11-21-2023 Office outpatient vi sit 15 minutes Timbo Baig [facility] Start: 10-08-2023 End: 10-08-2023 ambulatory Timbo Baig Other [facility] Other Start: 10-08-2023 Telephone encounter Timbo REBOLLEDO [facility] Start: 09-24-2023 End: 09-24-2023 ambulatory Timbo Baig Other [employer] [facility] [employer] Other Start: 09-24-2023 Office outpatient vi sit 25 minutes Timbo Baig [facility] Start: 09-04-2023 Office outpatient vi sit 15 minutes Jaylon Finnegan [facility] Start: 09-04-2023 End: 09-04-2023 ambulatory DO Timbo Ball Work Phone: [place] [employer] Other Start: 09-04-2023 End: 09-04-2023 Patient encounter procedure DO Timbo Ball Work Phone: [facility] Start: 08-25-2023 End: 08-26-2023 ambulatory Puma LOYA Facility:[facility] Start: 08-25-2023 End: 08-25-2023 Patient encounter procedure Puma LOYA [facility] Start: 2023 End: 2023 ambulatory Niya Baker Other [facility] [employer] Other Start: 2023 Telephone encounter Niya Barber [facility] Start: 05-22-2023 End: 05-23-2023 ambulatory Puma LOYA [facility] [employer] Other Start: 05-22-2023 Telephone encounter Niya Barber [facility] Start: 05-01-2023 End: 05-01-2023 ambulatory Niya Baker Facility:[facility] Start: 05-01-2023 End: 05-01-2023 ambulatory DO Timbo Ball Work Phone: [facility] Work Phone: Start: 05-01-2023 End: 05-01-2023 Patient encounter procedure DO Timbo Ball Work Phone: [facility] Start: 04-21-2023 End: 04-22-2023 ambulatory Puma LOYA Facility:[facility] Start: 04-12-2023 End: 04-12-2023 ambulatory ANDERSON Ann Work Phone: [facility] [employer] [facility] Work Phone: Start: 04-12-2023 End: 04-12-2023 Patient encounter procedure ANDERSON Ann Work Phone: [facility] Work Phone: Start: 04-02-[address] TIMBO BAIG Facil ty:[facility] Start: 03-24-2023 End: 03-24-2023 ambulatory Timbo Baig Other [facility] Other Start: 03-24-2023 Patient encounter procedure Timbo Baig [facility] Start: 09-25-2022 End: 09-26-[address] TIMBO BAIG Facility:[facility] Start: 07-09-2022 End: 07-10-2022 ambulatory TITA JJ Facility:[facility] Start: 04-29-2022 End: 04-29-2022 ambulatory Niya Baker Other [facility] Other Start: 04-29-2022 Follow-up encounter Niya [facility] Start: 04-29-2022 End: 04-29-2022 Patient encounter procedure DO Timbo Baig Work Phone: [facility] Start: 04-27-2022 End: 04-28-[address] TIMBO BAIG Facility:[facility] Start: 04-19-2022 End: 04-19-2022 Patient encounter procedure Puma LOYA [facility] Start: 04-18-2022 End: 04-19-[address] PUMA LOYA . Facility:[facility] Start: 03-13-2022 Adult health examination Jaylon Finnegan Other [facility] Other Procedures Date Procedure Procedure Detail Performing Clinician Start: 09-04-2023 Ankle brachial press ure index DO Timbo Baig Work Phone: Start: 05-22-2023 Extracorporeal shock wave lithotripsy of calculus of kidney Puma LOYA Start: 04-12-2023 Flu B ANDERSON Ann Work Phone: Start: 04-12-2023 Rapid Strep ANDERSON Ann Work Phone: Start: 08-31-2020 Extracorporeal shock wave lithotripsy of calculus of kidney Puma LOYA Start: 05-23-2020 Cystoscopy Puma LEWIS Start: 06-17-2019 Cystoscopic removal of ureteric stent Puma LOYA Start: 06-10-2019 Cystoscopic insertio n of ureteric stent Puma LOYA Start: 09-18-2018 Screening for malign ant neoplasm of colon Jaylon Kain Other Start: 04-11-2016 Extracorporeal shock wave lithotripsy [...] object) Puma LOYA Start: 09-18-2009 Cystoscopy Puma LEWIS Start: 11-10-2002 Cystoscopy Puma SHARMA TERS Start: 11-10-2002 Transurethral prostatectomy Puma LOYA Comment on above: w/ Cystoscopy Start: 11-10-2001 Transrectal biopsy o f prostate using ultrasound guidance Puma LOYA Cystoscopy Puma LOYA Depression screening Jaylon Finnegan Other Hemorrhoidectomy Puma ABREU Herniated structure (morphologic abnormality) Puma LOYA Urodynamic studies Puma SMITH Plan of Treatment Date Care Activity Detail Author Start: 08-30-2024 ambulatory Ambulatory Facility:[facility] Start: 05-01-2023 Doppler ultrasonography of bilateral carotid arteries US carotid doppler [facility] Start: 05-01-2023 US.doppler Carotid arteries - bilateral [facility] Start: 04-29-2022 Doppler ultrasonography of bilateral carotid arteries US carotid doppler [facility] Patient Education Viral Syndrome (AC) [facility] [employer] Work Phone: Immunizations Immunization Date Immunization Notes Care Provider [facility] 08-04-2022 COVID-19 Pfizer (bivalent) Timbo Baig Other [facility] 08-04-2022 influenza virus vaccine, unspecified formulation Puma LOYA [facility] 08-04-2022 influenza, high dose seasonal, preservative-free Timbo Baig Other [facility] Other 02-21-2022 COVID-19 Jorge Alberto velasco Other [facility] Other 02-21-2022 SARS-CoV-2 mRNA (dmaylwzfsnx-attz-cqovs se) vaccine Pumaaleksandr LOYA [facility] 09-06-2021 zoster vaccine recombinant Timbo Baig Other [facility] 08-10-2021 influenza virus vaccine, unspecified formulation Puma LOYA [facility] 08-07-2021 COVID-19 Vaccine Pfi zer - Documentation Purposes Only Timbo Baig Other [facility] Comment on above: Result Comment: 2022: [id number] 07-19-2021 influenza virus vaccine, unspecified formulation Puma LOYA [facility] 05-16-2021 zoster vaccine recombinant Timbo Jovanni Other [facility] 01-09-2021 COVID-19 Vaccine Pfi zer - Documentation Purposes Only Timbo Baig Other [facility] Comment on above: Result Comment: 2022: [id number] 12-19-2020 COVID-19 Vaccine Pfi zer - Documentation Purposes Only Timbo Baig Other [facility] Comment on above: Result Comment: 2022: [id number] 07-31-2020 influenza virus vaccine, unspecified formulation Puma [employer] [facility] 08-20-2019 influenza virus vaccine, split virus (incl. purified surface antigen) Jaylon Finnegan Other [facility] Other 08-10-2019 influenza virus vaccine, unspecified formulation Puma [employer] [facility] 02-19-2019 pneumococcal polysaccharide vaccine, 23 valent Timbo Baig Other [facility] 09-21-2018 influenza virus vaccine, unspecified formulation P[employer] [facility] 08-19-2018 influenza virus vaccine, split virus (incl. purified surface antigen) Jaylon Finnegan Other [facility] Other 02-16-2018 pneumococcal conjuga te vaccine, 13 valent Timbo Baig Other [facility] 09-02-2017 influenza virus vaccine, unspecified formulation Puma LOYA [facility] 08-28-2016 influenza virus vaccine, unspecified formulation Puma LOYA [facility] 08-22-2015 influenza virus vaccine, unspecified formulation Puma LOYA [facility] 08-19-2013 influenza virus vaccine, unspecified formulation Puma LOYA [facility] Payers Date Payer Category Payer Self-pay [id number] 1957 Medicare [id number] 1957 Private Health Insurance [id number] 1940 Unknown [id number] 3 1942 Unknown [id number] 3 1942 Unknown [id number] 3 1942 Unknown [id number] 3 1942 Unknown [id number] 3 1942 Unknown [id number] 7 1942 Unknown [id number] [id number] 7 1942 Unknown [id number] 7 1942 Unknown [id number] 7 Medicare MEDICARE PARTS A & B [id number] Unknown [id number] 1 Unknown [id number] 1 Social History Date Type Detail Facility Start: 08-27-2021 End: 04-21-2023 Tobacco smoking status Ex-smoker (finding) [facility] Sex Assigned At Male [facility] Start: 1940 Sex Assigned At Male F [facility] Start: 04-12-2023 Alone [facility] Start: 04-12-2023 0 [facility] Functional Status Date Assessment Result Facility 08-25-2023 Functional Status N/A [facility] Clinical Notes 04-19-2022 to 12-17-2023 Note Date & Type Note Facility 12-17-2023 Note [facility] SUBJECTIVE No chief complaint on file. Kang Brady is a 83 y.o. male here for follow-up. HPI PMHx: AVR 2014, CAD s/p CABG x1 2014, HTN, carotid stent by vascular surgeon in [place] (Dr. Cedillo) He works out a few days a week and he feels like he is not able to be able to do what he use to do without getting SOB. He gets SOB with walking such as walking in from the parking. He has gained about 6-7# in the past 3 months. His abdomen feels more distended. Patient Active Problem List Diagnosis Abnormal results of cardiovascular function studies Aortic valve disorder Benign essential hypertension Benign prostatic hyperplasia with urinary obstruction Coronary arteriosclerosis Dizziness and giddiness Dyspnea Former smoker Gastroesophageal reflux disease History of anticoagulant therapy Obstructive sleep apnea syndrome Hypogonadism in male Peripheral vascular disease (CMS/HCC) Syncope and collapse Kidney stone Diastolic heart failure (CMS/HCC) Past Medical History: Diagnosis Date Carotid artery stenosis Coronary artery disease Heart valve disease Hypertension PVD (peripheral vascular disease) (CMS/HCC) Sleep apnea Family History Problem Relation Name Age of Onset No Known Problems Mother No Known Problems Father Social History Tobacco Use Smoking status: Former Types: Cigarettes Smokeless tobacco: Never Substance Use Topics Alcohol use: Not Currently No Known Allergies ROS Constitutional: Positive for malaise/fatigue. Cardiovascular: Positive for claudication and dyspnea on exertion (worsening). Musculoskeletal: Positive for arthritis and back pain. All other systems reviewed and are negative. OBJECTIVE Visit Vitals BP 112/74 (BP Location: Left arm, Patient Position: Sitting) Pulse 80 Ht 1.778 m (5' 10 ) Wt 92.5 kg (204 lb) SpO2 93% BMI 29.27 kg/m??? Smoking Status Former BSA 2.14 m??? Medications: Current Outpatient Medications: aspirin 81 mg EC tablet, Take 1 tablet every day by oral route., Disp: , Rfl: atorvastatin (Lipitor) 10 mg tablet, Take 10 mg by mouth at bedtime., Disp: , Rfl: citalopram (CeleXA) 20 mg tablet, , Disp: , Rfl: clopidogrel (Plavix) 75 mg tablet, Take 1 tablet by mouth in the morning., Disp: , Rfl: finasteride (Proscar) 5 mg tablet, , Disp: , Rfl: hydroCHLOROthiazide (HYDRODiuril) 12.5 mg tablet, Take 1 tablet every other day by oral route for 90 days., Disp: , Rfl: metoprolol tartrate (Lopressor) 25 mg tablet, Take 0.5 tablets by mouth in the morning and at bedtime., Disp: , Rfl: tamsulosin (Flomax) 0.4 mg 24 hr capsule, , Disp: , Rfl: furosemide (Lasix) 40 mg tablet, Take 1 tablet (40 mg) by mouth in the morning., Disp: 30 tablet, Rfl: 0 potassium chloride CR (Klor-Con M10) 10 mEq ER tablet, Take 1 tablet (10 mEq) by mouth in the morning. Take with lasix. Do not crush or chew., Disp: 30 tablet, Rfl: 0 Physical Exam Labs: 07/22/2023 Cr 1.2, BUN 15, K 3.9, NA 138, eGFR 58 05/12/2023 Cr 1.07, BUN 18, K 4.7, Na 139, eGFR >60 04/02/2023 CR 1.1, BUN 19, K 4.1, Na 142, eGFR >60 Chol 154, HDL 63, trig 71, LDL 76.8 Lipids 07/2021: Chol 139, HDL 59, trig 64, LDL 67 Testing/Procedures: ECHO 07/04/2023 CONCLUSION: 1. Global left ventricular systolic function is normal; visually estimated ejection fraction 60 to 65% 2. Moderate left ventricular hypertrophy 3. Grade 2, moderate diastolic dysfunction 4. The right ventricle is normal in size and systolic function 5. The left atrium is mildly dilated 6. Mild tricuspid regurgitation 7. Mild mitral valve stenosis, mild mitral valve regurgitation 8. A bioprosthetic aortic valve is seen; mild bioprosthetic aortic valve stenosis 9. E/E' suggests volume overload state Echocardiogram 06/2022: Global left ventricular systolic function is normal; ejection fraction 55 to 60%. No significant wall motion abnormalities. Diastolic function is indeterminate. The right ventricle appears enlarged with reduced systolic function. Mild tricuspid regurgitation. Mild mitral valve stenosis. Mild mitral regurgitation. A bioprosthetic aortic valve is seen with normal Doppler flows. Echo (06/22/2021) 1. Normal ventricular systolic function 2. Mild diastolic dysfunction 3. Bioprosthetic aortic valve with normal function 4. Mitral mitral valve stenosis 5. Normal right-sided pressures PROCEDURE (11/11/2014): Aortic valve replacement and a CABG x1 with left radial artery graft to the OM1. Cardiovascular Laboratory Report (10/13/2014) FINAL IMPRESSIONS: 1. Severe aortic stenosis by invasive hemodynamic study. 2. Mdacjpgq-yo-hbibfm two-vessel coronary artery disease involving the left anterior descending and left circumflex coronary arteries. 3. Normal right-sided heart pressures and wedge pressure. 4. Normal cardiac output/cardiac index. 5. 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 (more content not included)... [facility] 12-17-2023 Note Patient here for 1 y [...] All other systems reviewed and are negative. [facility] 11-21-2023 Evaluation note Encounter Date Diagnosis Assessment [...] a couple years. - previously referred to [facility] Neurosurgery but declined treatment He feels the [...] and feet daily for blisters and ulcerations. [facility] Other 11-15-2023 Evaluation note* Encounter Date Diagnosis [...] w/ lumbar spondylosis Sep, Atherosclerosis of b oth lower extremities with [...] w/ serial Echocardiogram Control BP and HR [facility] Other 10-26-2023 Evaluation note* Encounter Date Diagnosis [...] pain which seems to be bothering him. [facility] Other 10-16-2023 Hospital Discharge instructions Patient Education [...] include: ?8 oz (237 mL) of milk, zyreacn-sbvyngqpgndt-gqvjz milk, and calcium- fortifiedfruit juice. Calcium-fortified means [...] ?Spinach (cooked), rhubarb, beets, sweet potatoes, and Albanian chard. ?Peanuts. ?Potato chips, ecuadorean fries, and baked potatoes with skin on. ?Nuts and nut products. ?Chocolate. If you regularly take a diuretic medicine, make sure to eat at least 1 or 2 servings of fruits or vegetables that are high in potassium each day. These include: ?Avocado. ?Banana. ?Robertson, prune, carrot, or tomato juice. ?Baked potato. [...] magnesium, fish oil, or vitamin B6. Take uaon-cng-qsaqvwr and prescription medicines only as told by [...] Casseroles. Pizza. Lasagna. Frozen meals. Potato chips. Urdu fries. The items listed above may not [...] provider. Document Revised: 07/08/2022 Document Reviewed: 07/08/2022 [employer] Patient Education 2022 [employer]. Follow Up Care 05/30/2023 13:07:47 With:REINIER HUSAIN, Puma Jaramillo, URL Address: [facility] [address], [place] [address]- When:Within 1 Year(s) Comments:w/MELQUIADES [facility] 05-15-2023 Evaluation note* Encounter Date Diagnosis Assessment [...] until develop pain Inspect feet for ulcers March, Lumbar spondylosis w ith myelopathy (ICD-10 - [...] High risk medication use (ICD-10 - Z79.899) [facility] Other 06-20-2022 Evaluation note* Encounter Date Diagnosis Assessment Notes [...] agrees with this plan, denies any questions. [facility] Other 06-10-2022 Hospital Discharge instructions Patient Education 04/19/2022 10:54:30 Kidney Stones, Cmrb-os-Rxoc Kidney Stones Kidney stones are rock-like masses [...] Follow these instructions at home: Medicines Take ybml-knf-zlqsrpm and prescription medicines only as told by [...] 04/14/2009 Document Revised: 03/14/2020 Document Reviewed: 03/14/2020 [employer] Patient Education 2019 [employer] Follow Up Care 08/27/2021 10:53:23 With:REINIER HUSAIN, Puma Jaramillo, URL Address: [facility] [address], [place] [address]- [phone] When:04/19/2023 [facility] evaluation + Plan note Future Appointments Appointment Date:04/21/2023 09:45:00 AM Scheduled Provider:Puma LOYA MD Location:[facility] Appointment Type:URO Office Visit [facility] evaluation + Plan note Future Appointments Appointment Date:08/30/2024 10:30:00 AM Scheduled Provider:Puma LOYA MD Location:[facility] Appointment Type:URO Office Visit [facility] evaluation noteNo assessment information available [facility] Work Phone: Evaluation note* Diagnosis Onset Date Resolution Status Viral URI acute [facility], [facility] Work Phone: Evaluation noteNo [facility] [employer] Other His[employer] general Narrative - Reported* Type Description Date Medical History carotid stenosis Medical History HTN Surgical History heart valve replaced 2013 Surgical History left internal carotid angioplas ty and stent 2011 [facility] [employer] Other Hisab[facility] general Narrative - Reported* Type Description Date [...] Surgical History COLONOSCOPY 2020 Surgical History EGD 2019 Surgical History ESWL, KIDNEY, RIGHT 2019 Hospitalization History SEE SURGICAL HX [facility] Other History general Narrative - Reported* Type [...] kidney 05/2023 Hospitalization History SEE SURGICAL HX [facility] Other Hospital course Narrative No data available for this section [facility] progress note No data available for this section [facility] reason for referral (narrative)* Reason Referral for lumbar foraminal stenosis and left lower extremity weakness. 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 372) Referral Organization [facility] penny Referring Provider First Name Timbo Referring Provider Last Name Jovanni Referring Provider Specialty Internal Me dicine Referred Organization [facility] Referred Provider Boby Mai Ref[place] [address] [place],[address] Referred Provider Specialty Neurological Surgery Referral Priority [...] Notes Include recent and p revious MRI [facility] Other Chief Complaint and Reason for Visit [...] Timbo Baig , Primary Care Provider Active Jaylon Finnegan MD [...] face for AFO brace- fax note to [phone] (unrecognized sect ion and content) No Status Records FoundNo Status Records FoundNo Status Records FoundNo Status Records Found INFORMATION SOURCE (unrecogn ized section and content) DATE CREATED AUTHOR 03/25/2023 Hipolito roque DATE CREATED AUTHOR AUTHOR'S ORGANIZ ATION 09/14/2023 [facility] DATE CREATED AUTHOR AUTHOR'S ORGANIZ ATION 10/24/2023 [facility] DATE CREATED AUTHOR AUTHOR'S ORGANIZ ATION 12/27/2023 [facility] FOR RECORDS PERTAINING TO PATIENTS WHO [...] BE BASED ON THE PRIMARY CLINICAL RECORDS. [facility] [employer] [facility]. provides no warranty or guarantee of the accuracy or completeness of information in this document.
--- NOTE | 2024-01-09 12:18 | XR_ITS ---
The [address] [address] Patient Name: KANG BRADY MRN: [id number] date: 1940 Sex: M Assigned Patient Location: [facility] Current Patient Location: [facility] Accession/Order Number: [id number] Exam Date: 01/09/2024 12:38 Report Date: 01/09/2024 13:59 At the request of: YASIR BUCIO Procedure: XR lumbar spine min 4V EXAMINATION: XR lumbar spine min 4V HISTORY: Herniation of intervertebral disc between L5 and S1 COMPARISON: No relevant comparison available. FINDINGS: BONES: Neutral projection demonstrates normal alignment with no acute fracture or spondylolisthesis. Moderate diffuse degenerative spondylosis. Moderate to severe facet osteoarthropathy DISC SPACES: Moderate to severe multilevel disc space narrowing with endplate sclerosis most significant L4-5 and L5-S1 PARASPINOUS: Negative. No paraspinous abnormality is seen. OTHER: Extensive atherosclerosis. No transient spondylolisthesis with flexion or extension XR/XR lumbar spine min 4V IMPRESSION: Moderate to severe degenerative changes No dynamic instability Electronically authenticated by: IVY DOMINGUEZ Date: 01/09/2024 13:59
== END 2024-01-09 12:10 | disposition home or self-care (01) ==
LOC: RAD 12:12
PROVIDERS: PCP Internal Medicine; Visit Provider Nurse Practitioner Family
DX: M51.27 Other intervertebral disc displacement, lumbosacral region (principal); M46.1 Sacroiliitis, not elsewhere classified; M21.372 Foot drop, left foot; M54.16 Radiculopathy, lumbar region; M51.36 Other intervertebral disc degeneration, lumbar region
CPT/HCPCS: 72110

== ENCOUNTER 2024-01-16 13:01 | Outpatient (RCR) | payer MEDICARE, OTHER, SELFPAY | END 2024-01-30 11:49 | disposition home or self-care (01) | LOC: PT 13:01 | PROVIDERS: PCP Internal Medicine; Visit Provider Nurse Practitioner Family | DX: M51.27 Other intervertebral disc displacement, lumbosacral region (principal); M46.1 Sacroiliitis, not elsewhere classified; M21.372 Foot drop, left foot; M54.16 Radiculopathy, lumbar region | CPT/HCPCS: 97110; 97162 ==

== ENCOUNTER 2024-03-11 06:32 | Day surgery (SDC) | payer MEDICARE, OTHER, SELFPAY ==
--- NOTE | 2024-03-11 | OP_ITS ---
OPERATION DATE: 03/11/2024 SURGEON: Brett Mueller M.D. PREOPERATIVE DIAGNOSIS: Nuclear sclerotic cataract left eye. POSTOPERATIVE DIAGNOSIS: Nuclear sclerotic cataract left eye. PROCEDURE: Cataract extraction with intraocular lens placed for the left eye. ANESTHESIA: Topical. ESTIMATED BLOOD LOSS: Zero. COMPLICATIONS: None. PROCEDURE: The patient was brought to the Operating Room in supine position. After proper identification, the left eye was prepped and draped in a sterile ophthalmic fashion. A paracentesis was created at the 5 o'clock position. Approximately 1 cc of unpreserved Xylocaine was injected into the anterior chamber followed by Amvisc Plus. Using a 2.6 mm Keratome blade, a clear corneal incision was created at the 2 o'clock limbus. A cystotome was then used to begin a curvilinear capsulorrhexis that was continued for 360 degrees with the Utrata forceps. BSS on a 26 gauge cannula was injected beneath the anterior capsule to hydrodissect as well as hydrodelineate the lens. After ensuring mobility, phacoemulsification was performed in a [id number]-type fashion. After all nuclear material had been removed from the eye, IA was introduced and all residual cortical material was cleaned up. Additional Amvisc Plus was injected into the posterior bag and a lens model MX60, 22.5 diopters was injected and dialed into position. After ensuring centration, IA was re- introduced into the anterior chamber and all residual Amvisc Plus was removed from the eye. BSS on a 30 gauge cannula was then injected into the stroma of both the clear corneal incision as well as paracentesis to hydrate the wounds. Additional BSS was injected into the anterior chamber to pressurize the eye at approximately 20 to 22 mmHg by finger tension. 0.1 cc of antibiotic was injected into the anterior chamber and Weck-Emily sponges were used to check the wounds to be watertight. One drop of apraclonidine and one drop of prednisolone acetate were placed into the eye and a shield was placed over top. The patient was sent to the postoperative area in satisfactory condition to follow up the following day for postoperative care. GINA
--- NOTE | 2024-03-11 06:32 | HP_ITS ---
PREOPERATIVE HISTORY AND PHYSICAL Date:? 03/10/2024 HISTORY:? The patient is a 83-year-old male with complaints of declining vision out of his left eye.? This has been gradually worsening over the last several years.? He states having difficulty with halos and glare at night time with headlights.? He also states that he is having driving and seeing road signs at a distance, as well as reading.? PAST OCULAR HISTORY:? Denies. PAST MEDICAL HISTORY:? Hypertension, hypercholesterolemia, history of benign prostatic hypertrophy and history of an aortic valve replacement. SOCIAL HISTORY:? Denies tobacco, alcohol or recreational drug abuse. SYSTEMIC MEDICATIONS:? Include lisinopril, hydrochlorothiazide, finasteride, clopidogrel, citalopram, aspirin, amiodarone, metoprolol, potassium chloride, simvastatin, tamsulosin, furosemide. ALLERGIES TO MEDICATIONS:? Denies. REVIEW OF SYSTEMS:? No pertinent positives. PHYSICAL EXAM: GENERAL:? In general, he is awake, alert and oriented x3, well developed, well nourished, in no acute distress.? HEART:? Regular rate and rhythm. LUNGS:? Clear bilaterally. ABDOMEN:? Soft, non-tender, non-distended. EXTREMITIES:? No pitting edema. OPHTHALMIC EXAM:? Revealed a visual acuity of 20/60 -1 in the right and 20/50 -1 in the left, both glaring to 20/400 bilaterally.? Pupils motility, muscle balance and confrontational visual chavez within normal limits bilaterally.? Pressures are measured at 16 bilaterally.? Slit lamp exam revealed blepharitis with a severe decrease in tear film bilaterally.? Conjunctiva, cornea, anterior chamber and iris were within normal limits bilaterally.? Lens status demonstrated 2-3+ nuclear sclerosis with 2+ cortical changes and vacuoles bilaterally. FUNDUS EXAM:? Revealed good view with good dilation bilaterally.? The macula demonstrated an epiretinal membrane bilaterally and RPE mottling in the right eye.? Otherwise, optic discs, vessels, periphery and vitreous were within normal limits bilaterally.? ASSESSMENT AND PLAN:? Visually significant cataract, left eye.? After the risks, benefits, and alternatives as well as expectations were delivered to the patient, he elected to go forward with cataract removal.? He understands those risks to include but not limited to infection, bleeding, loss of vision or loss of the eye itself.? Secondly, he understands that postoperatively he is likely to require spectacle correction for his best visual acuity.? Finally, a complete ophthalmic exam was performed and there was not determined to be any other source of vision decline other than that of cataract.? After understanding all risks as well as expectations, he elected to go forward with the procedure as listed above and will be doing so in the near future. GINA
--- OUTSIDE RECORDS SUMMARY | 2024-03-11 06:35 | XMS_ITS | CCD ---
Author Organization [facility] Care Team Providers Care Systems Program Manager Name Role Phone TIMBO BAIG Primary Care Physician DO Timbo Baig Primary Care Provider MD Jaylon Finnegan Attending Provider [phone] Niya Baker Unavailable Timbo Baig Unavailable JOVANNI, DR MUNSON Admitting Unavailable BALL, DR MUNSON Attending Unavailable BALL, DR MUNSON Primary Care Unavailable BALL, DR MUNSON Consulting Unavailable JOVANNI, DR MUNSON Admitting Unavailable JOVANNI, DR MUNSON Attending Unavailable JOVANNI, DR MUNSON Primary Care Unavailable PARVIZ, TITA Admitting Unavailable PARVIZ, TITA Attending Unavailable BALL, DR MUNSON Primary Care Unavailable PARVIZ, TITA Consulting Unavailable JOVANNI, DR MUNSON Admitting Unavailable JOVANNI, DR MUNSON Attending Unavailable JOVANNI, DR MUNSON Primary Care Unavailable JOVANNI, DR MUNSON Consulting Unavailable REINIER ., DR MCMAHON Admitting Unavailable REINIER ., DR MCMAHON Attending Unavailable JOVANNI, DR MUNSON Primary Care Unavailable REINIER ., DR MCMAHON Consulting Unavailable PRAY, DR IVY Jenkins Consulting Unavailable ANDERSON Ann Attending Provider DO Timbo Baig Primary Care Provider [phone] FREEMAN Baker Attending Provider Jaylon Finnegan Unavailable DO Timbo Baig Primary Care Provider [phone] FREEMAN Baker Attending Provider Niya Baker Admitting Unavailable Niya Baker Attending Unavailable Jovanni, Timbo Primary Care Unavailable Niya Baker Admitting Unavailable Niya Baker Attending Unavailable Jovanni, Timbo Primary Care Unavailable Puma LOYA Attending Unavailable Puma LOYA Attending Unavailable Puma LOYA Attending Unavailable Puma LOYA Attending Unavailable TITA JJ Attending Unavailable TITA JJ Attending Unavailable NAVNEET BLANC Attending Unavailable RADHA THOMSON Referring Unavailable Allergies Allergy Classification Reported Allergen(s) Allergy Type Date of Onset Reaction(s) Facility (1 source) patient allergy list reviewed by nurse or physicia Propensity to adverse reactions Comment:Done Picomize Other (1 source) No Known Medication Allergies; Translations: [No Known Medication Allergies] Propensity to adverse reactions (disorder) [facility] Repository Medications Current Medications Medication [...] Daily, # 90 tab(s), Refills(s) 3, Pharmacy: [facility], 152, cm, 04/19/22 10:18:00 EDT, Height/Length Dosing, 89.2, kg, 04/19/22 10:18:00 EDT, Weight Dosing Start Date: 02/12/23 Status: Ordered Finasteride Acti ve hydroCHLOROthiazide 12.5 mg oral capsule (13 sources) Thiazide Diuretic Start: 08-25-2023 take 1 capsule by mouth once daily hydrochlorothiazide 12.5 mg Cap 12.5 mg = 1 cap(s), Oral, Daily, # 90 cap(s), Refills(s) 3, Pharmacy: [facility], 178, cm, 08/25/23 12:26:00 EDT, Height/Length Dosing, 90, kg, 08/25/23 12:26:00 EDT, Weight Dosing Start Date: 08/25/23 Status: Ordered Start: 12-28-2021 take 1 capsule by mo [facility] once daily hydrochlorothiazide 12.5 mg Cap 12.5 mg = 1 cap(s), Oral, Daily, # 90 cap(s), Refills(s) 3, Pharmacy: [facility], 152, cm, 08/27/21 10:12:00 EDT, Height/Length [...] Daily, # 90 cap(s), Refills(s) 3, Pharmacy: [facility], 178, cm, 08/25/23 12:26:00 EDT, Height/Length [...] Onset: 07-22-2016 Episodic Congestive heart failure; nonhypertensive (4 sources) Chronic diastolic (congestive) heart failure; Translations: [Acute on chronic diastolic (congestive) heart failure] Onset: 12-17-2023 Chronic Coronary atherosclerosis and other heart disease (20 sources) Coronary arteriosclerosis; Translations: [Atherosclerotic heart disease of [place] coronary artery without angina pectoris] Onset: 09-15-2018 05-17-2019 Chronic Coronary atherosclerosis and other heart disease (1 source) Coronary atherosclerosis and other heart disease; Translations: [Atherosclerosis of [place] arteries of extremities with intermittent claudication, bilateral [...] sources) H/O: high risk medication; Translations: [Other intermediate (current) drug therapy] Episodic Other aftercare (5 sources) Long-term current use of drug therapy; Translations: [Other broom handle dipper (current) drug therapy] Episodic Other and unspecified [...] and due to atherosclerosis; Translations: [Atherosclerosis of [place] arteries of extremities with intermittent claudication, bilateral [...] Onset: 09-18-2018 Other aftercare (5 sources) Other broom handle dipper (current) drug therapy; Translations: [OTH ALF CURRENT DRUG THERAPY] Onset: 09-25-2022 Episodic Other [...] Name Value Interpretation Reference Range Facility 37on 01-15-2024 37 *You can take lasix as needed. Take if you develop worsening shortness of breath, abdominal bloating, leg swelling, or weight gain of 2-3lbs in a day or 5lbs in a week. Can take for 3 days or until weight or symptoms improve. *When you take lasix, take potassium with it. *Follow-up with vascular in [place] for your leg weakness and pain Normal [facility] Office Visiton 01-15-2024 Follow-up visit [id number] Kang Brady 1940 M Date Provider Department Center 01/15/2024 Manoj-TITA JJ Family History Problem Relation Age of Onset No Known Problems Mother No Known Problems Father Family Status - Relation Status Age at Mother Father Level of Service:47305 [place] OFFICE/OUTPATIENT ESTABLISHED MOD MDM 30 MIN Reason for Visit and Comments: Coronary Artery Disease [187] Congestive Heart Failure [127] Hypertension [407307] Hyperlipidemia [182] Normal [facility] 36on 01-05-2024 36 Regarding labs from 12/26/2023: SANG Dumont MA Please let him know his labs show his kidney function is stable. Continue current meds. Thanks LM on patient's VM. [facility] 37on 12-17-2023 37 *Start taking lasix 40mg daily along with potassium supplements. *Have labs done around 12/26/2023. *Monitor your weight daily, first thing in the morning after you use the bathroom and before you eat breakfast. *Try to not drink more than 2000ml of fluids a day *Limit sodium/salt intake [facility] Office Visiton 12-17-2023 Follow-up visit [id number] BradyJosé wattsshakira Ngo 1940 M Date Provider Department Center 12/17/2023 TITA STEWART CARD [facility] Family History Problem Relation Age of Onset No Known Problems Mother No Known Problems Father Family Status - Relation Status Age at Mother Father Level of Service:24947 [place] OFFICE/OUTPATIENT ESTABLISHED MOD MDM 30 MIN [facility] Urology Office/Clinic Noteon 10-22-2023 Urology Office/Clinic Note Chief Complaint kidney stone and BPH with urinay obstruction HPI Staff 83 yo male here for 3 month f/u with metabolic workup and KUB. Previous Dx: kidney stone, BPH with obstruction. S/p R ESWL 05/22/23. KUB done 07/21/23 at [facility]. Metabolic workup done 07/22/23. Taking HCTZ [...] [facility] [address], [place] [address]- Additional Instructions: w/KUB Patient Education Dietary Guidelines to Help Prevent Kidney Stones I, Leelee Ventura , personally scribed for Dr. Loya on 08/25/2023 13:30:29. . Problem List/Past Medical History Ongoing BPH with urinary obstruction CAD (coronary artery disease) Former smoker GERD (gastroesophageal reflux disease) Hx of broom handle dipper use of blood thinners Impotence Kidney stone Male hypogonadism Historical Nocturia Prostatitis Urinary hesitancy Urine frequency Procedure/Surgical History ESWL of kidney (05/22/2023), ESWL of kidney (08/31/2020), Cystoscopy (05/23/2020), Cystoscopic removal of ureteric stent (06/17/2019), Cystoscopic insertion of ureteric stent (06/10/2019), ESWL - Extracorporeal shockwave li (more content not included)... Normal [facility] Comment on above: Result Comment: Elec tronically Signed By: Puma LOYA MD\.br\Date and Time Signed: 10/22/23 13:49 EST\.br\Electronically Co-Signed By: Leelee Ventura\.br\Date and Time Co-Signed: 08/25/23 13:30 EDT US ankle/arm indiceson 09-04 US ankle/arm indices [facility] [place] [address] [place] [address] Ultrasound Report Signed Patient: Kang Brady MR#: [id number] 11 : 1940 Acct:[id number] Age/Sex: 83 / M ADM Date: 09/04/23 Loc: [facility] Room: Type: [facility] Attending Dr: Niya Baker CRIME SCENE INVESTIGATOR-C Ordering Provider: Niya Baker APRN Date of [...] Jaylon Finnegan MD09/04/2023 1:02 PM Dictation Location: [place] [address] Tech: Pam Sheehan Transcribed By: DANIEL 09/04/23 1302 Dictated By: Jaylon Finnegan MD 09/04/23 1301 Signed By: 09/04/23 1302 [facility] Patient Educationon 08-25-20 Patient Education Nephrology [...] Spinach (cooked), rhubarb, beets, sweet potatoes, and Kitt[place] chard. ? Peanuts. ? Potato chips, sammarinese fries, and baked potatoes with skin on. ? Nuts and nut products. ? Chocolate. ? If you regularly take a diuretic medicine, make sure to eat at least 1 or 2 servings of fruits or vegetables that are high in potassium each day. These include: ? Avocado. ? Banana. ? Obion, prune, carrot, or tomato juice. ? Baked [...] fish oil, or vitamin B6. ? Take spir-prv-qgnqmnj and prescription medicines only as told by your health care provider. These include supplements. What foods should I limit? Limit your in (more content not included)... [facility] Lab Reportson 07-29-2023 Lab Reports [id number] 5#1.00CD:127 [facility] Lab Reportson 07-28-2023 Lab Reports [id number] 4#1.00CD:127 [facility] Lab Reportson 07-24-2023 Lab Reports [id number] 8#1.00CD:127 [facility] Lab Reportson 07-23-2023 Lab Reports [id number] C3#1.00CD:127 [facility] Lab Reports [id number] BB#1.00CD:127 [facility] - MISCon 07-22-2023 RAD - MISC [id number] 7#1.00CD:127 [facility] Formson 2023 Forms [id number] A9#1.00CD:127 [facility] RAD - MISCon 05-23-2023 RAD - MISC [id number] B3#1.00CD:127 [facility] Operative Reporton Operative Report [id number] F8#1.00CD:127 Normal [facility] Lab Reportson 05-19-2023 Lab Reports [id number] 7F#1.00CD:127 Normal [facility] Lab Reports [id number] 869#1.00CD:127 Normal [facility] RAD - MISCon 05-19-2023 RAD - MISC [id number] 42#1.00CD:127 Normal [facility] Consent for Procedure/Surger yon 05-05-2023 Consent for Procedure/Surgery [id number] 3E#1.00CD:127 Normal [facility] Formson 05-05-2023 Forms [id number] 1#1.00CD:127 Normal [facility] US carotid doppler BIon 04-11 US carotid doppler BI [facility] [place] [address] Ultrasound Report Signed Patient: Kang Brady MR#: [id number] 11 : 1940 Acct:[id number] Age/Sex: 82 / M ADM Date: 05/01/23 Loc: [facility] Room: Type: [facility] Attending Dr: Niya Baker CRIME SCENE INVESTIGATOR-C Ordering Provider: Niya Baker APRN Date of [...] Ricky Stephens M.D.05/02/2023 10:21 AM Dictation Location: [place] [address] Tech: Pam Sheehan Transcribed By: DANIEL 05/02/23 1021 Dictated By: Ricky Stephens MD 05/02/23 1019 Signed By: 05/02/23 1021 [facility] [id number] 1D#1.00CD:127 [facility] Ambulatory Visit Summaryon 0 04-21-2023 Ambulatory Visit Summary KANG BRADY :1940 Visit Date:04/21/2023 Ambulatory Visit Instructions Your Diagnosis Kidney stone BPH with urinary obstruction Tests Performed Urnls Dip Stick Auto w/o Microscopy POC 08556 XR Abdomen 1 View -- Results Pending [...] Follow-Up Appointments Friday 10:15 AM EDT With: Puma LOYA MD Where: [facility] Patient Educationon 04-21-20 Patient Education [...] Spinach (cooked), rhubarb, beets, sweet potatoes, and [place] chard. ? Peanuts. ? Potato chips, sammarinese fries, and baked potatoes with skin on. ? Nuts and nut products. ? Chocolate. ? If you regularly take a diuretic medicine, make sure to eat at least 1 or 2 servings of fruits or vegetables that are high in potassium each day. These include: ? Avocado. ? Banana. ? Obion, prune, carrot, or tomato juice. ? Baked [...] fish oil, or vitamin B6. ? Take fnvi-yed-ldmjrob and prescription medicines only as told by your health care provider. These include supplements. What foods should I limit? Limit your in (more content not included)... Normal [facility] Urology Office/Clinic Noteon 04-21-2023 Urology [...] URL [facility] [address], [place] [address]- Additional Instructions: 1 yr KUB pending image [...] smoker GERD (gastroesophageal reflux disease) Hx of intermediate use of blood thinners Impotence Kidney stone [...] Vitamin+ Plavi (more content not included)... Normal [facility] Comment on above: Result Comment: Elec tronically Signed By: Puma LOYA MD\.br\Date and Time Signed: 04/21/23 10:29 EDT\.br\Electronically Co-Signed By: Pastora Ding\.br\Date and Time Co-Signed: 04/21/23 10:26 EDT Laboratory - Microbiology an d Antimicrobial susceptibilityOrdered By: Aury Ann on 04-12-2023 S. pyogenes Ag IA Ql (Unsp spec) [facility] No Panel InformationOrdered By: Aury Ann on 04-12-2023 Flu B [facility] CBC AUTO DIFFon 09-25-2022 BASO # 0.0 103/ul Normal 0.0-0.1 [facility] Comment on above: Performed By: #### C BC #### [facility] [address] [place] [address] [address] Giacomo Mace Basophils/100 WBC (Bld) 0.5 % Normal 0.2-2.0 [facility] Comment on above: Performed By: #### C BC #### [facility] [address] [place] [address] Dr. Giacomo Mace EO # 0.4 103/ul Normal 0.0-0.7 [facility] Comment on above: Performed By: #### C BC #### [facility] [address] [place] [address] Dr. Giacomo Mace Eosinophils/100 WBC (Bld) 7.0 % Normal 0.9-7.0 [facility] Comment on above: Performed By: #### C BC #### [facility] [address] [place] [address] Dr. Giacomo Mace Erythrocyte distribution width (RBC) [Ratio] 14.6 % Normal 11.0-15.0 [facility] Comment on above: Performed By: #### C BC #### [facility] [address] [place] [address] Dr. Giacomo Mace Hematocrit (Bld) [Volume fraction] 46.9 % Normal 42.0-54.0 [facility] Comment on above: Performed By: #### C BC #### [facility] [address] [place] [address] Dr. Giacomo Mace Hemoglobin (Bld) [Mass/Vol] 15.1 g/dL Normal 14.0-18.0 [facility] Comment on above: Performed By: #### C BC #### [facility] [address] [place] [address] Dr. Giacomo Mace IG # 0.02 10e3/ul Normal 0.00-0.03 [facility] Comment on above: Performed By: #### C BC #### [facility] [address] [place] [address] Dr. Giacomo Mace IG % 0.4 % Normal 0.0-0.5 [facility] Comment on above: Performed By: #### C BC #### [facility] [address] [place] [address] Dr. Giacomo Mace LYMPH # 1.4 103/ul Normal 1.2-3.8 [facility] Comment on above: Performed By: #### C BC #### [facility] [address] [place] [address] Dr. Giacomo Mace Lymphocytes/100 WBC (Bld) 25.3 % Normal 20.5-60.0 [facility] Comment on above: Performed By: #### C BC #### [facility] [address] [place] [address] Dr. Giacomo Mace MANUAL DIFF REQ NO Normal [facility] Comment on above: Performed By: #### C BC #### [facility] [address] [place] [address] Dr. Giacomo Mace MCH (RBC) [Entitic mass] 29.6 pg Normal 25.9-34.0 [facility] Comment on above: Performed By: #### C BC #### [facility] [address] [place] [address] Dr. Giacomo Mace MCHC (RBC) [Mass/Vol] 32.2 g/dL Normal 29.9-35.2 [facility] Comment on above: Performed By: #### C BC #### [facility] [address] [place] [address] Dr. Giacomo Mace MCV (RBC) [Entitic vol] 92.0 fL Normal 80.0-94.0 [facility] Comment on above: Performed By: #### C BC #### [facility] [address] [place] [address] Dr. Giacomo Mace MONO # 0.6 103/ul Normal 0.3-0.8 [facility] Comment on above: Performed By: #### C BC #### [facility] [address] [place] [address] Dr. Giacomo Mace Monocytes/100 WBC (Bld) 10.4 % Normal 1.7-12.0 [facility] Comment on above: Performed By: #### C BC #### [facility] [address] [place] [address] Dr. Giacomo Mace NEUT # 3.2 103/ul Normal 1.4-6.5 [facility] Comment on above: Performed By: #### C BC #### [facility] [address] [place] [address] Dr. Giacomo Mace Neutrophils/100 WBC (Bld) 56.4 % Normal 43.0-75.0 [facility] Comment on above: Performed By: #### C BC #### [facility] [address] [place] [address] Dr. Giacomo Mace Platelet mean volume (Bld) [Entitic vol] 10.5 fL Normal 9.5-13.5 [facility] Comment on above: Performed By: #### C BC #### [facility] [address] [place] [address] Dr. Giacomo Mace PLT 227 103/ul Normal 150-450 [facility] Comment on above: Performed By: #### C BC #### [facility] [address] [place] [address] Dr. Giacomo Mace RBC 5.10 106/ul Normal 4.70-6.10 [facility] Comment on above: Performed By: #### C BC #### [facility] [address] [place] [address] Dr. Giacomo Mace WBC 5.7 103/ul Normal 4.0-11.0 [facility] Comment on above: Performed By: #### C BC #### [facility] [address] [place] [address] Dr. Giacomo Mace LIPID PROFILEon 09-25-2022 CHOL-HDL RATIO NORM SEE BELOW Normal [facility] Comment on above: Result Comment: 3.3 - 4.4 LOW RISK 4.4 - 7.1 AVERAGE RISK 7.1 - 11.0 MODERATE RISK >11.0 HIGH RISK Performed By: #### B MP, LIPID #### [facility] [address] [place] [address] [address] Giacomo Mace Cholesterol [Mass/Vol] 219 mg/dL Critically high <=200 [facility] Comment on above: Performed By: #### B MP, LIPID #### [facility] [address] [place] [address] [address] Giacomo Mace Cholesterol in HDL [Mass/Vol] 61 mg/dL Critically high 40-60 [facility] Comment on above: Performed By: #### B MP, LIPID #### [facility] [address] [place] [address] [address] Giacomo Mace Cholesterol in LDL [Mass/Vol] 136.4 mg/dL Normal [facility] Comment on above: Performed By: #### B MP, LIPID #### [facility] [address] [place] [address] [address] Giacomo Mace Cholesterol.total/Cholest jose elias in HDL [Mass ratio] 3.6 {ratio} Normal [facility] Comment on above: Performed By: #### B MP, LIPID #### [facility] [address] [place] [address] [address] Giacomo Mace HDL NORMAL > or = 60 mg/dl - LOW CARDIOVASCULAR RISK <40 mg/dl - HIGH CARDIOVASCULAR RISK Normal [facility] Comment on above: Performed By: #### B MP, LIPID #### [facility] [address] [place] [address] [address] Giacomo Mace LDL CALC NORMAL SEE BELOW Normal [facility] Comment on above: Result Comment: <100 mg/dl OPTIMAL 100 - 129 mg/dl NEAR OR ABOVE OPTIMAL 130 - 159 mg/dl BORDERLINE HIGH 160 - 189 mg/dl HIGH >190 mg/dl VERY HIGH Performed By: #### B MP, LIPID #### [facility] [address] [place] [address] [address] Giacomo Mace Triglyceride [Mass/Vol] 108 mg/dL Normal <=150 [facility] Comment on above: Performed By: #### B MP, LIPID #### [facility] [address] [place] [address] Dr. Giacomo Mace VLDL CALC 21.6 mg/dL Normal [facility] Comment on above: Performed By: #### B MP, LIPID #### [facility] [address] [place] [address] Dr. Giacomo Mace PROF CHEM 8 (BAS METB)on Anion gap [Moles/Vol] 9.6 mmol/L Normal [facility] Comment on above: Performed By: #### B MP, LIPID #### [facility] [address] [place] [address] Dr. Giacomo Mace Calcium [Mass/Vol] 9.3 mg/dL Normal 8.5-10.1 [facility] Comment on above: Performed By: #### B MP, LIPID #### [facility] [address] [place] [address] Dr. Giacomo Mace Chloride [Moles/Vol] 104 mmol/L Normal 98-107 [facility] Comment on above: Performed By: #### B MP, LIPID #### [facility] [address] [place] [address] Dr. Giacomo Mace CO2 [Moles/Vol] 27.8 mmol/L Normal 21.0-32.0 [facility] Comment on above: Performed By: #### B MP, LIPID #### [facility] [address] [place] [address] Dr. Giacomo Mace Creatinine [Mass/Vol] 1.08 mg/dL Normal 0.70-1.30 [facility] Comment on above: Performed By: #### B MP, LIPID #### [facility] [address] [place] [address] Dr. Giacomo Mace EGFR-AF STATELESS >60 Normal >=60 [facility] Comment on above: Performed By: #### B MP, LIPID #### [facility] [address] [place] [address] Dr. Giacomo Mace EGFR-NON AF STATELESS >60 Normal >=60 [facility] Comment on above: Performed By: #### B MP, LIPID #### [facility] [address] [place] [address] [address] Giacomo Mace Glucose [Mass/Vol] 111 mg/dL Critically high 74-106 [facility] Comment on above: Performed By: #### B MP, LIPID #### [facility] [address] [place] [address] [address] Giacomo Mace Potassium [Moles/Vol] 4.4 mmol/L Normal 3.5-5.1 [facility] Comment on above: Performed By: #### B MP, LIPID #### [facility] [address] [place] [address] [address] Giacomo Mace Sodium [Moles/Vol] 137 mmol/L Normal 136-145 [facility] Comment on above: Performed By: #### B MP, LIPID #### [facility] [address] [place] [address] [address] Giacomo Mace Urea nitrogen [Mass/Vol] 27.0 mg/dL Critically high 7.0-18 .0 [facility] Comment on above: Performed By: #### B MP, LIPID #### [facility] [address] [place] [address] Dr. Giacomo Mace Urea nitrogen/Creatinine [Mass ratio] 25.0 mg/mg Normal [facility] Comment on above: Performed By: #### B MP, LIPID #### [facility] [address] [place] [address] Dr. Giacomo Mace ECHOCARDIO M/2D COMPLETEon 0 07-09-2022 ECHOCARDIO M/2D COMPLETE Patient: KANG BRADY Exam Date: 07/09/2022 : 1940 Gender:M Ordering : [facility] Admission #: [id number] Family : DR TIMBO BAIG D.O. Order #: [id number] CLICK HERE TO VIEW EXAM ECHOCARDIOGRAM REPORT [...] Ilene Davis M.D. on 07/10/2022 at 14:46 [facility] CPKon 04-27-2022 CK [Catalytic activity/Vol] 96 U/L Normal 39-308 [facility] Comment on above: Performed By: #### C RP, CK #### [facility] [address] [address] [address] Giacomo Mace CRPon 04-27-2022 CRP [Mass/Vol] mg/L Normal <=1.0 [facility] Comment on above: Performed By: #### C RP, CK #### [facility] [address] [address] [address] Giacomo Mace ELECTROLYTESon 04-18-2022 Anion gap [Moles/Vol] 11.8 mmol/L Normal [facility] Comment on above: Performed By: #### E LEC #### [facility] [address] [place] [address] Dr. Giacomo Mace Chloride [Moles/Vol] 104 mmol/L Normal 98-107 [facility] Comment on above: Performed By: #### E LEC #### [facility] [address] [place] [address] Dr. Giacomo Mace CO2 [Moles/Vol] 27.5 mmol/L Normal 21.0-32.0 [facility] Comment on above: Performed By: #### E LEC #### [facility] [address] [place] [address] Dr. Giacomo Mace Potassium [Moles/Vol] 4.3 mmol/L Normal 3.5-5.1 [facility] Comment on above: Performed By: #### E LEC #### [facility] [address] [place] [address] Dr. Giacomo Mace Sodium [Moles/Vol] 139 mmol/L Normal 136-145 [facility] Comment on above: Performed By: #### E LEC #### [facility] [address] [place] [address] Dr. Giacomo Mace XR KUB 1 VIEWon [...] IVY DOMINGUEZ Date: 2022-04-18 08:04 Normal [facility] Vital Signs Date Time Vital Sign Value Performing Clinician Facility 11-21-2023 10:30-0500 Body height 177.8 cm Timbo Ball Other [facility] Other 11-21-2023 10:30-0500 Body mass index (BMI) [Ratio] 29.12 kg/m2 Timbo Ball Other [facility] Other 11-21-2023 10:30-0500 Body weight 92.08 kg Timbo Ball Other [facility] Other 11-21-2023 10:30-0500 Diastolic blood pressure 66 mm[Hg] Timbo Ball Other [facility] Other 11-21-2023 10:30-0500 Respiratory rate 12 /min Timbo Ball Other [facility] Other 11-21-2023 10:30-0500 Systolic blood pressure 103 mm[Hg] Timbo Ball Other [facility] Other 09-24-2023 11:00-0500 Body height 177.8 cm Timbo Ball Other [facility] Other 09-24-2023 11:00-0500 Body mass index (BMI) [Ratio] 28.69 kg/m2 Timbo Ball Other [facility] Other 09-24-2023 11:00-0500 Body weight 90.72 kg Timbo Ball Other [facility] Other 09-24-2023 11:00-0500 Diastolic blood pressure 73 mm[Hg] Timbo Ball Other [facility] Other 09-24-2023 11:00-0500 Respiratory rate 12 /min Timbo Ball Other [facility] Other 09-24-2023 11:00-0500 Systolic blood pressure 134 mm[Hg] Timbo Ball Other [facility] Other 08-25-2023 12:21-0400 Blood Pressure Location Puma LOYA [facility] 08-25-2023 12:21-0400 Diastolic blood pressure 82 mm[Hg] Puma LOYA [facility] 08-25-2023 12:21-0400 Heart rate 80 /min Pumaaleksandr LOYA [facility] 08-25-2023 12:21-0400 Respiratory rate 16 /min Puma LOYA [facility] 08-25-2023 12:21-0400 Systolic blood pressure 137 mm[Hg] Puma LOYA [facility] 04-12-2023 09:16-0400 Body temperature 97 [degF] PA Aury Shehorn Work Phone: [facility] 04-12-2023 09:16-0400 Body weight 88.45 kg PA Aury Shehorn Work Phone: [facility] 04-12-2023 09:16-0400 Diastolic blood pressure 62 mm[Hg] PA Aury Shehorn Work Phone: [facility] 04-12-2023 09:16-0400 Heart rate 80 /min PA Aury Ann Work Phone: [facility] 04-12-2023 09:16-0400 SaO2% (BldA) [Mass fraction] 96 % PA Aury Carvalhorn Work Phone: [facility] 04-12-2023 09:16-0400 Systolic blood pressure 123 mm[Hg] PA Aury Carvalhorn Work Phone: [facility] 03-24-2023 12:00-0400 Body height 177.8 cm Timbo Ball Other [facility] Other 03-24-2023 12:00-0400 Body mass index (BMI) [Ratio] 28.44 kg/m2 Timbo Ball Other [facility] Other 03-24-2023 12:00-0400 Body weight 89.9 kg Timbo Ball Other [facility] Other 03-24-2023 12:00-0400 Diastolic blood pressure 67 mm[Hg] Timbo Ball Other [facility] Other 03-24-2023 12:00-0400 Respiratory rate 12 /min Timbo Ball Other [facility] Other 03-24-2023 12:00-0400 Systolic blood pressure 123 mm[Hg] Timbo Ball Other [facility] Other 04-29-2022 14:30-0400 Body height 177.8 cm Niya Baker Other [facility] Other 04-29-2022 14:30-0400 Body mass index (BMI) [Ratio] 28.69 kg/m2 Niya Baker Other [facility] Other 04-29-2022 14:30-0400 Body temperature 96.3 [degF] Niya Baker Other [facility] Other 04-29-2022 14:30-0400 Body weight 90.72 kg Niya Baker Other [facility] Other 04-29-2022 14:30-0400 Diastolic blood pressure 80 mm[Hg] Niya Baker Other [facility] Other 04-29-2022 14:30-0400 SaO2% (BldA) [Mass fraction] 98 % Niya Baker Other [facility] Other 04-29-2022 14:30-0400 Systolic blood pressure 120 mm[Hg] Niya Baker Other [facility] Other 04-19-2022 10:04-0400 Blood Pressure Location Upma Trupanion [facility] 04-19-2022 10:04-0400 Diastolic blood pressure 84 mm[Hg] Puma LOYA [facility] 04-19-2022 10:04-0400 Heart rate 67 /min Puma LOYA [facility] [place] 04-19-2022 10:04-0400 Respiratory rate 16 /min Puma LOYA [facility] [place] 04-19-2022 10:04-0400 Systolic blood pressure 143 mm[Hg] Puma LOYA [facility] Jose David Encounters Encounter Date Encounter Type Care Provider Facility Start: 02-11-2024 End: 02-11-2024 ambulatory NAVNEET BLANC Not Available Start: 01-15-2024 End: 01-15-[address] [facility] Start: 12-17-2023 End: 12-17-[address] [facility] Start: 11-21-2023 End: 11-21-2023 ambulatory Timbo Baig Other [facility] Other Start: 11-21-2023 Office outpatient vi sit 15 minutes Timbo Jovanni [facility] Start: 10-08-2023 End: 10-08-2023 ambulatory Timbo Jovanni Other [facility] Other Start: 10-08-2023 Telephone encounter Timbo Jovanni [facility] Start: 09-24-2023 End: 09-24-2023 ambulatory Timbo Jovanni Other [facility] Other Start: 09-24-2023 Office outpatient vi sit 25 minutes Timbo Baig [facility] Start: 09-04-2023 Office outpatient vi sit 15 minutes Jaylon Finnegan [facility] Start: 09-04-2023 End: 09-04-2023 ambulatory DO Timbo Ball Work Phone: [facility] Other Start: 09-04-2023 End: 09-04-2023 Patient encounter procedure DO Timbo Ball Work Phone: [facility] Start: 08-25-2023 End: 08-26-2023 ambulatory Puma LOYA Facility: [place] Start: 08-25-2023 End: 08-25-2023 Patient encounter procedure Puma LOYA [facility] Jose David Start: 2023 End: 2023 ambulatory Niya Baker Other [facility] Other Start: 2023 Telephone encounter Niya Samuel Elisabeth [facility] Start: 05-22-2023 End: 05-23-2023 ambulatory Puma LOYA [facility] Other Start: 05-22-2023 Telephone encounter Niya Samuel Elisabeth [facility] Start: 05-01-2023 End: 05-01-2023 ambulatory Niya Valdezconstance Facility:[facility] Start: 05-01-2023 End: 05-01-2023 ambulatory DO Timbo Baig Work Phone: [facility] Work Phone: Start: 05-01-2023 End: 05-01-2023 Patient encounter procedure DO Timbo Baig Work Phone: [facility] Start: 04-21-2023 End: 04-22-2023 ambulatory Puma LOYA Facility:[facility] [place] Start: 04-12-2023 End: 04-12-2023 ambulatory ANDERSON Ann Work Phone: [facility] Work Phone: Start: 04-12-2023 End: 04-12-2023 Patient encounter procedure ANDERSON Ann Work Phone: [facility] Work Phone: Start: 04-02-[address] TIMBO BAIG Facili ty:[facility] Start: 03-24-2023 End: 03-24-2023 ambulatory Timbo Baig Other [facility] [facility] Other Start: 03-24-2023 Patient encounter procedure Timbo Ball [facility] Start: 09-25-2022 End: 09-26-[address] TIMBO BAIG Facility:[facility] Start: 07-09-2022 End: 07-10-2022 ambulatory TITA JJ Facility:[facility] Start: 04-29-2022 End: 04-29-2022 ambulatory Niya Baker Other [facility] Other Start: 04-29-2022 Follow-up encounter Niya [facility] Start: 04-29-2022 End: 04-29-2022 Patient encounter procedure DO Timbo Baig Work Phone: [facility] Start: 04-27-2022 End: 04-28-[address] TIMBO BAIG Facility:[facility] Start: 04-19-2022 End: 04-19-2022 Patient encounter procedure Puma LOYA [facility] Start: 04-18-2022 End: 04-19-[address] PUMA LOYA . Facility:[facility] Start: 03-13-2022 Adult health examination Jaylon Finnegan Other [facility] Other Procedures Date Procedure Procedure Detail Performing [...] Cystoscopy Puma LEWIS Start: 11-10-2002 Cystoscopy Puma LEWIS Start: 11-10-2002 Transurethral prostatectomy Puma LOYA Comment on above: w/ Cystoscopy Start: 11-10-2001 Transrectal biopsy o f prostate using ultrasound guidance Puma LOYA Cystoscopy Puma LOYA Depression screening Jaylon Finnegan Other Hemorrhoidectomy Puma CARLTON ABREU Herniated structure (morphologic abnormality) Puma LOYA Urodynamic studies Puma Amado SMITH Plan of Treatment Date Care Activity Detail Author Start: 08-30-2024 ambulatory Ambulatory Facility:[facility] Start: 05-01-2023 Doppler ultrasonography of bilateral carotid arteries US carotid doppler BI [facility] Start: 05-01-2023 US.doppler Carotid arteries - bilateral [facility] Start: 04-29-2022 Doppler ultrasonography of bilateral carotid arteries US carotid doppler BI [facility] Patient Education Viral Syndrome (AC) [facility] [employer] Work Phone: Immunizations Immunization Date Immunization Notes Care Provider Noah jamison 08-04-2022 COVID-19 Pfizer (bivalent) Timbo Baig Other [facility] 08-04-2022 influenza virus vaccine, unspecified formulation Puma LOYA [facility] 08-04-2022 influenza, high dose seasonal, preservative-free Timbo Baig Other [facility] Other 02-21-2022 COVID-19 Pfizer Timbo velasco Other [facility] Other 02-21-2022 SARS-CoV-2 mRNA (wzbeqeosukb-oxxp-hclle se) vaccine Puma LOYA [facility] 09-06-2021 zoster vaccine recombinant Timbo Baig Other [facility] 08-10-2021 influenza virus vaccine, unspecified formulation Puma LOYA [facility] 08-07-2021 COVID-19 Vaccine Pfi zer - Documentation Purposes Only Timbo Baig Other [facility] Comment on above: Result Comment: 2022: [id number] 07-19-2021 influenza virus vaccine, unspecified formulation Puma LOYA [facility] 05-16-2021 zoster vaccine recombinant Timbo Baig Other [facility] 01-09-2021 COVID-19 Vaccine Pfi zer - Documentation Purposes Only Timbo Baig Other [facility] Comment on above: Result Comment: 2022: [id number] 12-19-2020 COVID-19 Vaccine Pfi zer - Documentation Purposes Only Timbo Baig Other [facility] Comment on above: Result Comment: 2022: [id number] 07-31-2020 influenza virus vaccine, unspecified formulation [employer] [facility] 08-20-2019 influenza virus vaccine, split virus (incl. purified surface antigen) Jaylon Finnegan Other [facility] Other 08-10-2019 influenza virus vaccine, unspecified formulation [employer] [facility] 02-19-2019 pneumococcal polysaccharide vaccine, 23 valent Timbo Baig Other [facility] 09-21-2018 influenza virus vaccine, unspecified formulation [employer] [facility] 08-19-2018 influenza virus vaccine, split virus (incl. purified surface antigen) Jaylon Finnegan Other [facility] Other 02-16-2018 pneumococcal conjuga te vaccine, 13 valent Timbo Baig Other [facility] 09-02-2017 influenza virus vaccine, unspecified formulation [employer] [facility] 08-28-2016 influenza virus vaccine, unspecified formulation [employer] [facility] 08-22-2015 influenza virus vaccine, unspecified formulation [employer] [facility] 08-19-2013 influenza virus vaccine, unspecified formulation Puma REINIER [facility] Payers Date Payer Category Payer Self-pay [id number] 1957 Medicare [id number] 1959 Private Health Insurance [id number] 1942 Unknown [id number] 3 1942 Unknown [id number] 3 1942 Unknown [id number] 3 1942 Unknown [id number] 3 1942 Unknown [id number] 3 1942 Unknown [id number] [id number] 7 1942 Unknown [id number] [id number] 7 1942 Unknown [id number] [id number] 7 1942 Unknown [id number] [id number] 7 1942 Unknown [id number] [id number] 61 Medicare MEDICARE PARTS A & B [id number] Unknown [id number] 1 Unknown [id number] 1 Social History Date Type Detail Facility Start: 08-27-2021 End: 04-21-2023 Tobacco smoking status Ex-smoker (finding) [facility] Sex Assigned At Male [facility] Start: 1940 Sex Assigned At Male F [facility] Start: 04-12-2023 Alone [facility] Start: 04-12-2023 0 [facility] Functional Status Date Assessment Result Facility 08-25-2023 Functional Status N/A [facility] Clinical Notes 04-19-2022 to 01-15-2024 Note Date & Type Note Facility 01-15-2024 Note Patient here for 1 m o follow up acute on chronic diastolic heart failure, CAD, and KNIGHT. He was started on lasix and potassium last month and has lost 7#. Says his KNIGHT is improving. Denies chest pain, palpitations, and lightheadedness/syncope. Still has claudication. Review of Systems Constitutional: Positive for malaise/fatigue and weight loss (7# since 12/17/2023). Cardiovascular: Positive for claudication and dyspnea on exertion (improving). Musculoskeletal: Positive for arthritis and back pain. All other systems reviewed and are negative. [facility] 01-15-2024 Note Cardiovascular Medic ine [facility] SUBJECTIVE Chief Complaint Patient presents with Coronary Artery Disease Congestive Heart Failure Hypertension Hyperlipidemia Kang Brady is a 83 y.o. male here for follow-up. HPI PMHx: AVR 2014, CAD s/p CABG x1 2014, HTN, carotid stent by vascular surgeon in [place] (Dr. Cedillo) 01/15/2024 He notes that his SOB is improved. He is down 7# since last seen. He is asking if he can stop the lasix/potassium. He reports he does still have some SOB with exertion. He exercises 3 days a week. When he walks longer durations he c/o weakness and pain in his calves. He has to hang on to the hand railes on the treadmill. Denies CP, orthopnea, PND, LE edema. Patient Active Problem List Diagnosis Abnormal results [...] No Known Allergies ROS Constitutional: Positive for malaise/fatigue and weight loss (7# since 12/17/2023). Cardiovascular: Positive for claudication and dyspnea on exertion (improving). Musculoskeletal: Positive for arthritis and back pain. All other systems reviewed and are negative. OBJECTIVE Visit Vitals BP 100/76 (BP Location: Right arm, Patient Position: Sitting) Pulse 73 Ht 1.778 m (5' 10 ) Wt 89.4 kg (197 lb) SpO2 95% BMI 28.27 kg/m??? Smoking Status Former BSA 2.1 m??? Medications: Current Outpatient Medications: aspirin 81 [...] 5 mg tablet, , Disp: , Rfl: furosemide (Lasix) 40 mg tablet, TAKE 1 TABLET BY MOUTH EVERY DAY IN THE MORNING, Disp: 90 tablet, Rfl: 3 hydroCHLOROthiazide (HYDRODiuril) 12.5 mg tablet, Take 12.5 mg by mouth in the morning., Disp: , Rfl: Klor-Con M10 10 mEq ER tablet, TAKE 1 TABLET BY MOUTH IN THE MORNING WITH LASIX, DO NOT CRUSH OR CHEW, Disp: 90 tablet, Rfl: 3 metoprolol tartrate (Lopressor) 25 mg tablet, Take 0.5 tablets by mouth in the morning and at bedtime., Disp: , Rfl: tamsulosin (Flomax) 0.4 mg 24 hr capsule, , Disp: , Rfl: Physical Exam Constitutional: Appearance: Normal appearance. He is normal weight. HENT: Head: Normocephalic and atraumatic. Right Ear: External ear normal. Left Ear: External ear normal. Eyes: Extraocular Movements: Extraocular movements intact. Pupils: Pupils are equal, round, and reactive to light. Neck: Vascular: No carotid bruit. Cardiovascular: Rate and Rhythm: Normal rate and regular rhythm. Pulses: Normal pulses. Heart sounds: Normal heart sounds. Pulmonary: Effort: Pulmonary effort is normal. Breath sounds: Normal breath sounds. Abdominal: General: Bowel sounds are normal. Palpations: Abdomen is soft. Musculoskeletal: General: Normal range of motion. Cervical back: Neck supple. Right lower leg: No edema. Left lower leg: No edema. Skin: General: Skin is warm and dry. Neurological: General: No focal deficit present. Mental Status: He is alert and oriented to person, place, and time. Psychiatric: Mood and Affect: Mood normal. Behavior: Behavior normal. Thought Content: Thought content normal. Judgment: Judgment normal. Labs: 12/25/2023 Cr 1.21, BUN 19, K 3.9, eGFR 58, Na 138 07/22/2023 Cr 1.2, BUN 15, K 3.9, [...] 6. Mild tricuspid regurgitation 7. Mild mitral va (more content not included)... [facility] 12-17-2023 Note Patient here for 1 y [...] All other systems reviewed and are negative. [facility] 12-17-2023 Note Cardiovascular Medic ine [facility] SUBJECTIVE No chief complaint on file. Kang Brady is a 83 y.o. male here for follow-up. HPI PMHx: AVR 2014, CAD s/p CABG x1 2014, HTN, carotid stent by vascular surgeon in [place] (Dr. Cedillo) He works out a few [...] aortic stenosis by invasive hemodynamic study. 2. Vqnmnyux-mi-fdhfqx two-vessel coronary artery disease involving the left anterior descending and left circumflex coronary arteries. 3. Normal right-sided heart pressures and wedge pressure. 4. Normal cardiac output/cardiac index. 5. 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 (more content not included)... [facility] 11-21-2023 Evaluation note Encounter Date Diagnosis Assessment [...] a couple years. - previously referred to [facility] Neurosurgery but declined treatment He feels the [...] and feet daily for blisters and ulcerations. [facility] Other 11-15-2023 Evaluation note* Encounter Date Diagnosis [...] w/ serial Echocardiogram Control BP and HR [facility] Other 10-26-2023 Evaluation note* Encounter Date Diagnosis [...] pain which seems to be bothering him. [facility] Other 10-16-2023 Hospital Discharge instructions Patient Education [...] include: ?8 oz (237 mL) of milk, peukiyi-xblgslcmxfuc-ccuwu milk, and calcium- fortifiedfruit juice. Calcium-fortified means [...] ?Spinach (cooked), rhubarb, beets, sweet potatoes, and Kittitian chard. ?Peanuts. ?Potato chips, sammarinese fries, and baked potatoes with skin on. ?Nuts and nut products. ?Chocolate. If you regularly take a diuretic medicine, make sure to eat at least 1 or 2 servings of fruits or vegetables that are high in potassium each day. These include: ?Avocado. ?Banana. ?Obion, prune, carrot, or tomato juice. ?Baked potato. [...] magnesium, fish oil, or vitamin B6. Take ffju-flp-kuyntvk and prescription medicines only as told by [...] Casseroles. Pizza. Lasagna. Frozen meals. Potato chips. Dutch fries. The items listed above may not [...] provider. Document Revised: 07/08/2022 Document Reviewed: 07/08/2022 [employer] Patient Education 2022 [employer]. Follow Up Care 05/30/2023 13:07:47 With:REINIER HUSAIN, Puma Jaramillo, URL Address: [facility] [address], [place] [address]- When:Within 1 Year(s) Comments:w/MELQUIADES [facility] [place] 05-15-2023 Evaluation note* Encounter Date Diagnosis Assessment [...] High risk medication use (ICD-10 - Z79.899) [facility] Other 06-20-2022 Evaluation note* Encounter Date Diagnosis [...] agrees with this plan, denies any questions. [facility] Other 06-10-2022 Hospital Discharge instructions Patient Education 04/19/2022 10:54:30 Kidney Stones, Xqcf-sw-Lzeo Kidney Stones Kidney stones are rock-like masses [...] Follow these instructions at home: Medicines Take nrsi-lnz-aflsbnn and prescription medicines only as told by [...] 04/14/2009 Document Revised: 03/14/2020 Document Reviewed: 03/14/2020 [employer] Patient Education 2020 [employer]. Follow Up Care 08/27/2021 10:53:23 With:REINIER HUSAIN, Puma Jaramillo, URL Address: [facility] [address], [place] [address]- [phone] When:04/19/2023 [facility] evalfahixg + Plan note Future Appointments Appointment Date:04/21/2023 09:45:00 AM Scheduled Provider:Puma LOYA MD Location:[facility] Appointment Type:URO Office Visit [facility] evaluation + Plan note Future Appointments Appointment Date:08/30/2024 10:30:00 AM Scheduled Provider:Puma LOYA MD Location:[facility] Appointment Type:URO Office Visit [facility] evalreoknp noteNo assessment information available [facility] Work Phone: Evaluation note* Diagnosis Onset Date Resolution Status Viral URI acute [facility] Work Phone: Evaluation noteNo [facility] [employer] Other History general Narrative - Reported* Type Description Date Medical History carotid stenosis Medical History HTN Surgical History heart valve replaced 2013 Surgical History left internal carotid angioplas ty and stent 2011 [facility] Other History general Narrative - Reported* Type [...] RIGHT 2019 Hospitalization History SEE SURGICAL HX [facility] Other [facility] general Narrative - Reported* Type Description Date [...] ty and stent 2011 Surgical History CYSTOSCOPY 2020 Surgical History COLONOSCOPY 2020 Surgical History EGD 2020 Surgical History ESWL, KIDNEY, RIGHT 2019 Surgical History ESWL, right kidney 05/2023 Hospitalization History SEE SURGICAL HX [facility] Other Hospital course Narrative No data available for this section [facility] Jose David progress note No data available for this section [facility] Jose David reason for referral (narrative)* Reason Referral for lumbar foraminal stenosis and left lower extremity weakness. 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 372) Referral Organization [facility] Referring Provider First Name Timbo Referring Provider Last Name Jovanni Referring Provider Specialty Internal Me dicine Referred Organization [facility] Referred Provider Boby Mai Referred Address [address] [place], [place],[address] Referred Provider Specialty Neurological Surgery Referral Priority [...] Notes Include recent and p revious MRI [employer] Other Chief Complaint and Reason for Visit [...] Inactive Member Role Status Dates Timbo Baig DO Primary Care Provider Active Jaylon Finnegan MD Attending Provider Active Team Status: Active Member Role Status Dates Timbo Baig DO Primary Care Provider Active Team Status: Inactive Member Role Status Dates ANDERSON Almaraz Attending Provider Active Team Status: Inactive Member Role Status Dates Timbo Baig DO Primary Care Provider Active FREEMAN Cabrera Attending Provider Active Goals (unrecognized section and content) Goals may be documented in a n alternate section REASON FOR VISIT (unrecogniz ed section and content) VASC 1 YR FU; CAROTID DUPLEX 1PWELLNESS MBNo InformationERRORMedication Clarification4 month follow up; CHING's B/L legs at 11:006 month Follow up6 month Follow upMRI resultsface to face for FREEMAN price- fax note to [phone] (unrecognized sect ion and content) No Status Records FoundNo Status Records FoundNo Status Records FoundNo Status Records FoundNo Status Records Found INFORMATION SOURCE (unrecogn ized section and content) DATE CREATED AUTHOR 03/25/2023 [facility] DATE CREATED AUTHOR AUTHOR'S ORGANIZ ATION 09/14/2023 [facility] DATE CREATED AUTHOR AUTHOR'S ORGANIZ ATION 10/24/2023 [facility] DATE CREATED AUTHOR AUTHOR'S ORGANIZ ATION 01/16/2024 [facility] DATE CREATED AUTHOR AUTHOR'S ORGANIZ ATION 02/12/2024 [facility] EPIC FOR RECORDS PERTAINING TO PATIENTS WHO ARE [...] BE BASED ON THE PRIMARY CLINICAL RECORDS. [facility] [employer] [facility]. provides no warranty or guarantee of the accuracy or completeness of information in this document.
[2024-03-11] MEDS: DIAZEPAM 5 MG TABLET PO (06:46)
[2024-03-11] MEDS: PHENYLEPHRINE HCL 2.5% OP SOL 40 DROP/2 ML BOTTLE OP ×4 (06:49→07:12)
[2024-03-11] MEDS: BESIFLOXACIN HCL 100 DROP DROPS.SUSP OP ×4 (06:50→07:13)
[2024-03-11] MEDS: TROPICAMIDE 1% OP SOL 300 DROP/15 ML BOTTLE OP ×4 (06:51→07:12)
[2024-03-11] MEDS: PROPARACAINE HCL 0.5% 300 DROP/15 ML BOTTLE OP ×3 (06:53→07:06)
[2024-03-11 08:10] VITALS: BP 106/67; PULSE 70; O2SAT 93
[2024-03-11] MEDS: APRACLONIDINE HCL 0.5% SOL 100 DROP/5 ML BOTTLE OP (08:14)
[2024-03-11] MEDS: HYALURONATE SODIUM 16 MG/ML SYRINGE OP (08:14)
[2024-03-11] MEDS: LIDOCAINE 2% JELLY 10 ML TOPICAL (08:15)
[2024-03-11] MEDS: PHENYLEPHRINE/KETOROLAC 1-0.3% ML VIAL 4 ML IRR (08:15)
[2024-03-11] MEDS: LIDOCAINE HCL 1% PF 20 MG/2 ML VIAL INJ (08:15)
[2024-03-11] MEDS: BETADINE POVIDONE-IODINE 5% OP SOL 30 ML BOTTLE OP (08:15)
[2024-03-11] MEDS: CEFUROXIME SODIUM 750 MG, 0.9 % SODIUM CHLORIDE 16.3 ML OP (08:16)
[2024-03-11] MEDS: TETRACAINE HCL 0.5% OP SOL 80 DROP/4 ML BOTTLE OP (08:16)
[2024-03-11] MEDS: PREDNISOLONE ACETATE OP 1% SUSP 100 DROPS/5 ML 1 DROP OP (08:16)
[2024-03-11 08:18] VITALS: BP 117/78; PULSE 71; O2SAT 96
== END 2024-03-11 08:20 | disposition home or self-care (01) ==
LOC: SURGOUT 06:32
PROVIDERS: PCP Internal Medicine; Visit Provider Ophthalmology
PROC: (CPT 66984; principal; 2024-03-11 07:50)
DX: H25.12 Age-related nuclear cataract, left eye (principal); I10 Essential (primary) hypertension; E78.00 Pure hypercholesterolemia, unspecified; Z95.2 Presence of prosthetic heart valve
CPT/HCPCS: 66984; V2630

== ENCOUNTER 2024-04-07 07:30 | Outpatient (OUT) | payer MEDICARE, OTHER, SELFPAY ==
--- OUTSIDE RECORDS SUMMARY | 2024-04-07 07:32 | XMS_ITS | CCD ---
Author Organization [facility] Care Team Providers Care Italian Teacher Name Role Phone TIMBO BAIG Primary Care Physician DO Timbo Baig Primary Care Provider [phone] MD Jaylon Finnegan Attending Provider Niya Baker Unavailable Timbo Baig Unavailable JOVANNI, DR IZQUIERDO Admitting Unavailable BALL, DR IZQUIERDO Attending Unavailable JOVANNI, DR IZQIUERDO Primary Care Unavailable JOVANNI, DR IZQUIERDO Consulting Unavailable BALL, DR IZQUIERDO Admitting Unavailable BALL, DR IZQUIERDO Attending Unavailable BALL, DR IZQUIERDO Primary Care Unavailable PARVIZ, TITA Admitting Unavailable PARVIZ, TITA Attending Unavailable JOVANNI, DR IZQUIERDO Primary Care Unavailable TITA RIVERA Consulting Unavailable JOVANNI, DR IZQUIERDO Admitting Unavailable BALL, DR IZQUIERDO Attending Unavailable BALL, DR IZQUIERDO Primary Care Unavailable BALL, DR IZQUIERDO Consulting Unavailable LOYA ., DR MCMAHON Admitting Unavailable LOYA ., DR MCMAHON Attending Unavailable JOVANNI, DR IZQUIERDO Primary Care Unavailable LOYA ., DR MCMAHON Consulting Unavailable CALLEN[place]UR[place], DR IVY Jenkins Consulting Unavailable ANDERSON Ann Attending Provider [phone] DO Timbo Baig Primary Care Provider [phone] FREEMAN Baker Attending Provider Jaylon Finnegan Unavailable [phone] DO Timbo Baig Primary Care Provider FREEMAN Baker Attending Provider Niya Baker Admitting Unavailable Niya Baker Attending Unavailable Jovanni, Timbo Primary Care Unavailable Niya Baker Admitting Unavailable Niya Baker Attending Unavailable Timbo Baig Primary Care Unavailable LOYA, Puma R Attending Unavailable Puma LOYA Attending Unavailable Puma LOYA Attending Unavailable Puma LOYA Attending Unavailable TITA RIVERA Attending Unavailable TITA RIVERA Attending Unavailable NAVNEET BLANC Attending Unavailable RADHA THOMSON Referring Unavailable Allergies Allergy Classification Reported Allergen(s) Allergy Type Date of Onset Reaction(s) Facility (1 source) patient allergy list reviewed by nurse or physicia Propensity to adverse reactions Comment:Done Mieple Other (1 source) No Known Medication Allergies; Translations: [No Known Medication Allergies] Propensity to adverse reactions (disorder) [facility] Repository Medications Current Medications Medication Drug Class(es) Dates Sig (Normalized) Sig (Original) aspirin 81 mg delayed release oral tablet (13 sources) Platelet Aggregation Inhibitor, Nonsteroidal Anti-inflammatory Drug Start: 01-08-2024 take 1 tablet by mouth once daily Aspirin Active 1 TAB PO Daily January 08, 2024 1:00am FreeTextSi tablet Orally Once a day; Note: Source Status: Taking; Provider: Jovanni Izquierdo ( ) Start: 05-17-2019 take 1 mg by mouth once daily aspirin 81 mg oral tablet mg tab(s), Oral, Daily, Refills(s) 0 Start Date: 05/17/19 Status: Ordered take 1 tablet by sarah th every twenty-four hours Aspirin 81 MG 1 tablet Orally Once a day Active atorvastatin 10 mg oral tablet (11 sources) HMG-CoA Reductase Inhibitor Start: 01-08-2024 take 1 tablet by mouth once daily in the evening Atorvastatin Active 10 MG PO January 08, 2024 1:00am FreeTextSig: TAKE 1 TABLET EVERY EVENING; Note: Source Status: Taking; Provider: Jovanni Izquierdo ( ) Start: 04-21-2023 atorvastatin 1 0 mg Tab Refills(s) 0 Start Date: 04/21/23 Status: Ordered clopidogrel 75 mg oral tablet (16 sources) P2Y12 Platelet Inhibitor Start: 01-08-2024 End: 02-27-2024 take 75 mg by mouth once daily Clopidogrel Active 75 MG PO Daily 90 90 February 27, 2024 1:29pm Start: 05-17-2019 take 1 tablet by sarah th once daily Plavix 75 mg Tab 75 mg = 1 tab(s), Oral, Daily, Refills(s) 0, Blood Thinner Start Date: 05/17/19 Status: Ordered furosemide 40 mg oral tablet (1 source) Loop Diuretic Start: 03-15-2024 take 40 mg by mouth once daily Furosemide Active 40 MG PO Daily March 15, 2024 12:00am hydroCHLOROthiazide 12.5 mg oral tablet (14 sources) Thiazide Diuretic Start: 01-08-2024 take 1 tablet by mouth once daily in the morning Hydrochlorothiazide Active 1 TAB PO Daily January 08, 2024 1:00am FreeTextSi tablet in the morning Orally Once a day; Note: Source Status: Taking; Provider: Jovanni Izquierdo ( ) Start: 08-25-2023 take 1 capsule by mo [facility] once daily hydrochlorothiazide 12.5 mg Cap 12.5 mg = 1 cap(s), Oral, Daily, # 90 cap(s), Refills(s) 3, Pharmacy: [facility], 178, cm, 08/25/23 12:26:00 EDT, Height/Length Dosing, 90, kg, 08/25/23 12:26:00 EDT, Weight Dosing Start Date: 08/25/23 Status: Ordered Start: 12-28-2021 take 1 capsule by mo [facility] once daily hydrochlorothiazide 12.5 mg Cap 12.5 mg = 1 cap(s), Oral, Daily, # 90 cap(s), Refills(s) 3, Pharmacy: [facility], 152, cm, 08/27/21 10:12:00 EDT, Height/Length Dosing, 89, kg, 08/27/21 10:12:00 EDT, Weight Dosing Start Date: 12/28/21 Status: Ordered Start: 10-31-2021 take 12.5 mg by mout h once daily Hydrochlorothiazide Active 12.5 MG PO Daily October 31, 2021 1:00am 24 hr metoprolol succinate 25 mg extended release oral tablet (14 sources) beta-Adrenergic Marilyn Start: 01-08-2024 Metopr olol Succinate Active MG PO January 08, 2024 1:00am Start: 10-31-2021 take 25 mg by mouth once daily Metoprolol Tartrate Active 25 MG PO Daily October 31, 2021 1:00am Start: 05-17-2019 metoprolol 25 mg ER Tab 12.5 mg = 0.5 tab(s), Oral, BID, Refills(s) 0, High blood pressure Start Date: 05/17/19 Status: Ordered take 1 tablet by [facility] once daily Metoprolol Succinate ER 25 MG 1 tablet Orally Once a day Active Metoprolol Tartr ate 25 MG TAKE 1/2 TABLET TWICE A DAY for 90 Active Multi Vitamin+ (2 sources) Start: 12-20-2019 Multi Vitamin+ Refill(s) 0 Start Date: 12/20/19 Status: Ordered microencapsulated potassium chloride 10 meq extended release oral tablet (1 source) Start: 03-15-2024 Potassium Chloride (Klor-Con M10) 10 mEq tablet,ER particles/crystal s Active 10 MEQ PO Daily March 15, 2024 12:00am simvastatin 20 mg oral tablet (4 sources) HMG-CoA Reductase Inhibitor Start: 05-17-2019 take 20 mg by mouth at bedtime Simvastatin Active 20 MG PO bedtime October 31, 2021 1:00am take 1 tablet by mouth every twe nty-four hours tamsulosin hydrochloride 0.4 mg oral capsule (5 sources) alpha-Adrenergic Marilyn Start: 03-15-2024 take 0.4 mg by mouth once daily Tamsulosin Active 0.4 MG PO Daily March 15, 2024 12:00am Start: 01-08-2024 End: 03-12-2024 Tamsulosin Discontinued MG P O January 08, 2024 1:00am March 12, 2024 4:28pm Start: 08-25-2023 take 1 capsule by [facility] once daily tamsulosin 0.4 mg Cap 0.4 mg = 1 cap(s), Oral, Daily, # 90 cap(s), Refills(s) 3, Pharmacy: [facility], 178, cm, 08/25/23 12:26:00 EDT, Height/Length Dosing, 90, kg, 08/25/23 12:26:00 EDT, Weight Dosing Start Date: 08/25/23 Status: Ordered take 1 capsule by [facility] every twenty-four hours Completed/Discontinued Medications Medication Drug Class(es) Dates Sig (Normalized) Sig (Original) citalopram 20 mg oral tablet (6 sources) Serotonin Reuptake Inhibitor Start: 01-08-2024 End: 03-12-2024 take 20 mg by mouth once daily Citalopram Discontinued 20 MG PO Daily January 08, 2024 1:00am March 12, 2024 4:28pm Start: 05-17-2019 take 1 tablet by sarah th once daily CeleXA 20 mg Tab 20 mg = 1 tab(s), Oral, Daily, Refills(s) 0, Depression Start Date: 05/17/19 Status: Ordered take 1 tablet by sarah th every twenty-four hours finasteride 5 mg oral tablet (6 sources) 5-alpha Reductase Inhibitor Start: 01-08-2024 End: 03-12-2024 Finasteride Discontinued 5 MG PO January 08, 2024 1:00am March 12, 2024 4:28pm Start: 10-31-2021 take 1 tablet by sarah th once daily finasteride 5 mg Tab 5 mg = 1 tab(s), Oral, Daily, # 90 tab(s), Refills(s) 3, Pharmacy: [facility], 152, cm, 04/19/22 10:18:00 EDT, Height/Length Dosing, 89.2, kg, 04/19/22 10:18:00 EDT, Weight Dosing Start Date: 02/12/23 Status: Ordered Finasteride Acti ve Problems Active Problems Problem Classification Problem Date Documented Date Episodic/Chronic Acquired foot deformities (5 sources) Foot drop, left foot; Translations: [Foot-drop] Episodic Adjustment disorders (5 sources) 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; Translations: [Mixed disorders as reaction to stress] Onset: 09-15-2018 Chronic Calculus of urinary tract (20 sources) Kidney stone; Translations: [Calculus of kidney] Onset: 07-22-2016 Episodic Chronic kidney disease (2 sources) Chronic kidney disease; Translations: [Chronic kidney disease, unspecified] 03-13-2024 Chronic Congestive heart failure; nonhypertensive (4 sources) Chronic diastolic (congestive) heart failure; Translations: [Acute on chronic diastolic (congestive) heart failure] Onset: 12-17-2023 Chronic Coronary atherosclerosis and other heart disease (20 sources) Coronary arteriosclerosis; Translations: [Atherosclerotic heart disease of [place] coronary artery without angina pectoris] Onset: 09-15-2018 05-17-2019 Chronic Coronary atherosclerosis and other heart disease (1 source) Coronary atherosclerosis and other heart disease; Translations: [Atherosclerosis of [place] arteries of extremities with intermittent claudication, bilateral legs] Onset: 09-04-2023 Disorders of lipid metabolism (20 sources) Pure hypercholesterolemia; Translations: [Pure hypercholesterolemia, unspecified] Onset: 09-15-2018 Chronic Diverticulosis and diverticulitis (5 sources) Diverticulitis of colon; Translations: [Diverticulitis of intestine, part unspecified, without perforation or abscess without bleeding] Onset: 09-15-2018 Chronic Esophageal disorders (2 sources) Gastroesophageal reflux disease 05-17-2019 Chronic Essential hypertension (2 sources) Hypertensive disorder; Translations: [Essential (primary) hypertension] 03-13-2024 Chronic Genitourinary symptoms and ill-defined conditions (20 [...] sources) H/O: high risk medication; Translations: [Other termite treater helper (current) drug therapy] Episodic Other aftercare (5 sources) Long-term current use of drug therapy; Translations: [Other termite treater helper (current) drug therapy] Episodic Other and unspecified [...] and due to atherosclerosis; Translations: [Atherosclerosis of [place] arteries of extremities with intermittent claudication, bilateral legs] Onset: 09-15-2018 Chronic Residual codes; unclassified (2 sources) H/O: anticoagulant therapy 05-17-2019 Episodic Spondylosis; intervertebral disc disorders; other back problems (20 sources) Lumbar spondylosis with myelopathy; Translations: [Other spondylosis with myelopathy, lumbar region] Chronic Spondylosis; intervertebral disc disorders; other back problems (6 sources) Backache; Translations: [Unspecified backache] Onset: 09-15-2018 01-08-2024 Episodic Sprains and strains (5 sources) Low back [...] Onset: 09-18-2018 Other aftercare (5 sources) Other termite treater helper (current) drug therapy; Translations: [OTH SKILLED NURSING CURRENT DRUG THERAPY] Onset: 09-25-2022 Episodic Other [...] of tobacco use] Onset: 09-15-2018 05-17-2019 Episodic Unclassified (1 source) Personal history of [...] potassium with it. *Follow-up with vascular in [place] for your leg weakness and pain Normal [facility] Office Visiton 01-15-2024 Follow-up visit [id number] Kang Brady 1940 M Date Provider Department Center 01/15/2024 TITA STEWART CARD [facility] Family History Problem Relation Age of Onset No Known Problems Mother No Known Problems Father Family Status - Relation Status Age at Mother Father Level of Service:[id number] ID OFFICE/OUTPATIENT ESTABLISHED MOD MDM 30 MIN Reason for Visit and Comments: Coronary Artery Disease [187] Congestive Heart Failure [127] Hypertension [217879] Hyperlipidemia [182] Normal [facility] 36on 01-05-2024 36 Regarding labs from 12/26/2023: Tita Rivera, SANG Franco MA Please let him know his labs show his kidney function is stable. Continue current meds. Thanks LM on patient's VM. Normal [facility] Estimated glomerular filtrat ion rate (GFR) non- Americanon 12-26-2023 GFR/1.73 sq M.predicted among non-blacks MDRD (S/P/Bld) [Vol rate/Area] 58 mL/min/{1.73_m2} >=60 [facility] - Chemistry and C hemistry - challengeon 12-26-2023 Calcium [Mass/Vol] 9.3 mg/dL 8.5-10.1 [facility] Chloride [Moles/Vol] 101 mmol/L 98-107 [facility] CO2 [Moles/Vol] 28.4 mmol/L 21.0-32.0 [facility] Creatinine [Mass/Vol] 1.21 mg/dL 0.70-1.30 [facility] GFR/1.73 sq M.predicted MDRD (S/P/Bld) [Vol rate/Area] mL/min/{1.73_m2} >=60 [facility] Glucose [Mass/Vol] 117 mg/dL 74-106 [facility] Potassium [Moles/Vol] 3.9 mmol/L 3.5-5.1 [facility] Sodium [Moles/Vol] 138 mmol/L 136-145 [facility] Urea nitrogen [Mass/Vol] 19.0 mg/dL 7.0-18.0 [facility] Urea nitrogen/Creatinine [Mass ratio] 15.7 mg/mg [facility] Serum or plasma anion gap de terminationon 12-26-2023 Anion gap [Moles/Vol] 12.5 mmol/L [facility] 37on 12-17-2023 37 *Start taking lasix 40mg daily along with potassium supplements. *Have labs done around 12/26/2023. *Monitor your weight daily, first thing in the morning after you use the bathroom and before you eat breakfast. *Try to not drink more than 2000ml of fluids a day *Limit sodium/salt intake Normal [facility] Office Visiton 12-17-2023 Follow-up visit [id number] Kang Brady 1940 M Date Provider Department Center 12/17/2023 TITA STEWART CARD [facility] Family History Problem Relation Age of Onset No Known Problems Mother No Known Problems Father Family Status - Relation Status Age at Mother Father Level of Service:[id number] ID OFFICE/OUTPATIENT ESTABLISHED MOD MDM 30 MIN Normal [facility] Urology Office/Clinic Noteon 10-22-2023 Urology Office/Clinic Note Chief Complaint kidney stone and BPH with urinay obstruction HPI Staff 83 yo male here for 3 month f/u with metabolic workup and KUB. Previous Dx: kidney stone, BPH with obstruction. S/p R ESWL 05/22/23. KUB done 07/21/23 at [facility]. Metabolic workup done 07/22/23. Taking HCTZ [...] to monitor. Follow up in 1 yr w/MELQUIADES. All questions/concerns were discussed. Pt to call [...] year [facility] [address] [place] [address]- Additional Instructions: w/KUB Patient Education Dietary Guidelines to Help Prevent Kidney Stones I, Leelee Ventura , personally scribed for Dr. Loya on 08/25/2023 13:30:29. . 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 Normal [facility] Comment on above: Result Comment: Elec tronically Signed By: REINIER HUSAIN, Puam Jaramillo\.br\Date and Time Signed: 10/22/23 13:49 EST\.br\Electronically Co-Signed By: Leelee Ventura\.br\Date and Time Co-Signed: 08/25/23 13:30 EDT US ankle/arm indiceson 09-04 US ankle/arm indices [facility] Main [place] [address] [place] [address] Ultrasound Report Signed Patient: Kang Brady MR#: [id number] 11 : 1940 Acct:[id number] Age/Sex: 83 / M ADM Date: 09/04/23 Loc: [facility] Room: Type: [facility] Attending Dr: Niya Baker LAUNDRY ASSISTANT-C Ordering Provider: Niya Baker APRN Date of [...] Jaylon Finnegan MD09/04/2023 1:02 PM Dictation Location: [place] [address] Tech: Pamsaima Richardsguzman Transcribed By: [facility] 09/04/23 1302 Dictated By: Jaylon Finnegan MD 09/04/23 1301 Signed By: 09/04/23 1302 [facility] Patient Educationon 08-25-20 Patient Education Nephrology [...] Spinach (cooked), rhubarb, beets, sweet potatoes, and Bangladeshi chard. ? Peanuts. ? Potato chips, latvian fries, and baked potatoes with skin on. ? Nuts and nut products. ? Chocolate. ? If you regularly take a diuretic medicine, make sure to eat at least 1 or 2 servings of fruits or vegetables that are high in potassium each day. These include: ? Avocado. ? Banana. ? Helena, prune, carrot, or tomato juice. ? Baked [...] fish oil, or vitamin B6. ? Take prmm-qty-yopikub and prescription medicines only as told by your health care provider. These include supplements. What foods should I limit? Limit your in (more content not included)... [facility] Lab Reportson 07-29-2023 Lab Reports [id number] 5#1.00CD:127 [facility] 07-28-2023 Lab Reports [id number] 4#1.00CD:127 [facility] 07-24-2023 Lab Reports [id number] 8#1.00CD:127 [facility] 07-23-2023 Lab Reports [id number] C3#1.00CD:127 [facility] Lab Reports [id number] BB#1.00CD:127 [facility] RAD - MISCon 07-22-2023 RAD - MISC [id number] 7#1.00CD:127 [facility] Formson 2023 Forms [id number] A9#1.00CD:127 [facility] RAD - MISCon 05-23-2023 RAD - MISC [id number] B3#1.00CD:127 Normal [facility] Operative Reporton Operative Report [id number] F8#1.00CD:127 [facility] Lab Reportson 05-19-2023 Lab Reports [id number] 7F#1.00CD:127 [facility] Lab Reports [id number] 869#1.00CD:127 [facility] RAD - MISCon 05-19-2023 RAD - MISC [id number] 42#1.00CD:127 [facility] Consent for Procedure/Surger yon 05-05-2023 Consent for Procedure/Surgery [id number] 3E#1.00CD:127 [facility] Formson 05-05-2023 Forms [id number] 1#1.00CD:127 [facility] US carotid doppler BIon 04-11 US carotid doppler BI [facility] [place] [address] Ultrasound Report Signed Patient: Kang Brady MR#: [id number] 11 : 1940 Acct:[id number] Age/Sex: 82 / M ADM Date: 05/01/23 Loc: [facility] Room: Type: [facility] Attending Dr: Niya Baker LAUNDRY ASSISTANT-C Ordering Provider: Niya Baker APRN Date of [...] Ricky Stephens M.D.05/02/2023 10:21 AM Dictation Location: [place] [address] Tech: Pam Sheehan Transcribed By: DANIEL 05/02/23 1021 Dictated By: Ricky Stephens MD 05/02/23 1019 Signed By: 05/02/23 1021 Normal [facility] RAD - MISCon 04-25-2023 RAD - MIS [id number] 1D#1.00CD:127 Normal [facility] Ambulatory Visit Summaryon 0 04-21-2023 Ambulatory Visit Summary KANG BRADY :1940 Visit Date:04/21/2023 Ambulatory Visit Instructions Your Diagnosis Kidney stone BPH with urinary obstruction Tests Performed Urnls Dip Stick Auto w/o Microscopy POC 92849 XR Abdomen 1 View -- Results Pending [...] Puma LOYA MD Where: [facility] Jose David Branch [facility] Patient Educationon 04-21-20 Patient Education [...] Spinach (cooked), rhubarb, beets, sweet potatoes, and Bangladeshi chard. ? Peanuts. ? Potato chips, latvian fries, and baked potatoes with skin on. ? Nuts and nut products. ? Chocolate. ? If you regularly take a diuretic medicine, make sure to eat at least 1 or 2 servings of fruits or vegetables that are high in potassium each day. These include: ? Avocado. ? Banana. ? [place], prune, carrot, or tomato juice. ? Baked [...] fish oil, or vitamin B6. ? Take fhzw-nbg-zjzrslg and prescription medicines only as told by your health care provider. These include supplements. What foods should I limit? Limit your in (more content not included)... Normal [facility] Urology Office/Clinic Noteon 04-21-2023 Urology [...] urinary complaints. Follow-up With When Contact Information Puma LOYA MD, URL [facility] [address], [place] [address]- Additional Instructions: 1 yr KUB pending image [...] smoker GERD (gastroesophageal reflux disease) Hx of mcfp use of blood thinners Impotence Kidney stone [...] Vitamin+ Plavi (more content not included)... Normal [facility] Comment on above: Result Comment: Elec tronically Signed By: Puma LOYA MD\.br\Date and Time Signed: 04/21/23 10:29 EDT\.br\Electronically Co-Signed By: Pastora Ding\.br\Date and Time Co-Signed: 04/21/23 10:26 EDT Laboratory - Microbiology an d Antimicrobial susceptibilityOrdered By: Aury Ann on 04-12-2023 S. pyogenes Ag IA Ql (Unsp spec) [facility] No Panel InformationOrdered By: Aury Ann on 04-12-2023 Flu B [facility] CBC AUTO DIFFon 09-25-2022 BASO # 0.0 103/ul Normal 0.0-0.1 [facility] Comment on above: Performed By: #### C BC #### [facility] [address] [place] [address] Dr. Giacomo Mace Basophils/100 WBC (Bld) 0.5 % Normal 0.2-2.0 [facility] Comment on above: Performed By: #### C BC #### [facility] [address] [place] [address] Dr. Giacomo Mace EO # 0.4 103/ul Normal 0.0-0.7 [facility] Comment on above: Performed By: #### C BC #### [facility] [address] [place] [address] Dr. Giacomo Mace Eosinophils/100 WBC (Bld) 7.0 % Normal 0.9-7.0 [facility] Comment on above: Performed By: #### C BC #### [facility] [address] [place] [address] Dr. Giacomo Mace Erythrocyte distribution width (RBC) [Ratio] 14.6 % Normal 11.0-15.0 [facility] Comment on above: Performed By: #### C BC #### [facility] [address] [place] [address] Dr. Giacomo Mace Hematocrit (Bld) [Volume fraction] 46.9 % Normal 42.0-54.0 [facility] Comment on above: Performed By: #### C BC #### [facility] [address] [place] [address] Dr. Giacomo Mace Hemoglobin (Bld) [Mass/Vol] 15.1 g/dL Normal 14.0-18.0 [facility] Comment on above: Performed By: #### C BC #### [facility] [address] [place] [address] Dr. Giacomo Mace IG # 0.02 10e3/ul Normal 0.00-0.03 [facility] Comment on above: Performed By: #### C BC #### [facility] [address] [place] [address] Dr. Giacomo Mace IG % 0.4 % Normal 0.0-0.5 [facility] Comment on above: Performed By: #### C BC #### [facility] [address] [place] [address] Dr. Giacomo Maec LYMPH # 1.4 103/ul Normal 1.2-3.8 [facility] Comment on above: Performed By: #### C BC #### [facility] [address] [place] [address] Dr. Giacomo Mace Lymphocytes/100 WBC (Bld) 25.3 % Normal 20.5-60.0 [facility] Comment on above: Performed By: #### C BC #### [facility] [address] [place] [address] Dr. Giacomo Mace MANUAL DIFF REQ NO Normal [facility] Comment on above: Performed By: #### C BC #### [facility] [address] [place] [address] Dr. Giacomo Mace MCH (RBC) [Entitic mass] 29.6 pg Normal 25.9-34.0 [facility] Comment on above: Performed By: #### C BC #### [facility] [address] [place] [address] Dr. Giacomo Mace MCHC (RBC) [Mass/Vol] 32.2 g/dL Normal 29.9-35.2 [facility] Comment on above: Performed By: #### C BC #### [facility] [address] [place] [address] Dr. Giacomo Mace MCV (RBC) [Entitic vol] 92.0 fL Normal 80.0-94.0 [facility] Comment on above: Performed By: #### C BC #### [facility] [address] [place] [address] Dr. Giacomo Mace MONO # 0.6 103/ul Normal 0.3-0.8 [facility] Comment on above: Performed By: #### C BC #### [facility] [address] [address] [address] Giacomo Mace Monocytes/100 WBC (Bld) 10.4 % Normal 1.7-12.0 [facility] Comment on above: Performed By: #### C BC #### [facility] [address] [place] [address] Dr. Giacomo Mace NEUT # 3.2 103/ul Normal 1.4-6.5 [facility] Comment on above: Performed By: #### C BC #### [facility] [address] [place] [address] Dr. Giacomo Mace Neutrophils/100 WBC (Bld) 56.4 % Normal 43.0-75.0 [facility] Comment on above: Performed By: #### C BC #### [facility] [address] [place] [address] Dr. Giacomo Mace Platelet mean volume (Bld) [Entitic vol] 10.5 fL Normal 9.5-13.5 [facility] Comment on above: Performed By: #### C BC #### [facility] [address] [place] [address] Dr. Giacomo Mace PLT 227 103/ul Normal 150-450 [facility] Comment on above: Performed By: #### C BC #### [facility] [address] [place] [address] Dr. Giacomo Mace RBC 5.10 106/ul Normal 4.70-6.10 [facility] Comment on above: Performed By: #### C BC #### [facility] [address] [place] [address] Dr. Giacomo Mace WBC 5.7 103/ul Normal 4.0-11.0 [facility] Comment on above: Performed By: #### C BC #### [facility] [address] [address] [address] Giacomo Mace LIPID PROFILEon 09-25-2022 CHOL-HDL RATIO NORM SEE BELOW Normal [facility] Comment on above: Result Comment: 3.3 - 4.4 LOW RISK 4.4 - 7.1 AVERAGE RISK 7.1 - 11.0 MODERATE RISK >11.0 HIGH RISK Performed By: #### B MP, LIPID #### [facility] [address] [address] [address] Giacomo Mace Cholesterol [Mass/Vol] 219 mg/dL Critically high <=200 [facility] Comment on above: Performed By: #### B MP, LIPID #### [facility] [address] [address] [address] Giacomo Mace Cholesterol in HDL [Mass/Vol] 61 mg/dL Critically high 40-60 [facility] Comment on above: Performed By: #### B MP, LIPID #### [facility] [address] [address] [address] Giacomo Mace Cholesterol in LDL [Mass/Vol] 136.4 mg/dL Normal [facility] Comment on above: Performed By: #### B MP, LIPID #### [facility] [address] [address] [address] Giacomo Mace Cholesterol.total/Cholest jose elias in HDL [Mass ratio] 3.6 {ratio} Normal [facility] Comment on above: Performed By: #### B MP, LIPID #### [facility] [address] [address] [address] Giacomo Mace HDL NORMAL > or = 60 mg/dl - LOW CARDIOVASCULAR RISK <40 mg/dl - HIGH CARDIOVASCULAR RISK Normal [facility] Comment on above: Performed By: #### B MP, LIPID #### [facility] [address] [address] [address] Giacomo Mace LDL CALC NORMAL SEE BELOW Normal [facility] Comment on above: Result Comment: <100 mg/dl OPTIMAL 100 - 129 mg/dl NEAR OR ABOVE OPTIMAL 130 - 159 mg/dl BORDERLINE HIGH 160 - 189 mg/dl HIGH >190 mg/dl VERY HIGH Performed By: #### B MP, LIPID #### [facility] [address] [address] [address] Giacomo Mace Triglyceride [Mass/Vol] 108 mg/dL Normal <=150 [facility] Comment on above: Performed By: #### B MP, LIPID #### [facility] [address] [place] [address] Dr. Giacomo Mace VLDL CALC 21.6 mg/dL Normal [facility] Comment on above: Performed By: #### B MP, LIPID #### [facility] [address] [place] [address] Dr. Giacomo Mace PROF CHEM 8 (BAS METB)on Anion gap [Moles/Vol] 9.6 mmol/L Normal [facility] Comment on above: Performed By: #### B MP, LIPID #### [facility] [address] [place] [address] Dr. Giacomo Mace Calcium [Mass/Vol] 9.3 mg/dL Normal 8.5-10.1 [facility] Comment on above: Performed By: #### B MP, LIPID #### [facility] [address] [place] [address] Dr. Giacomo Mace Chloride [Moles/Vol] 104 mmol/L Normal 98-107 [facility] Comment on above: Performed By: #### B MP, LIPID #### [facility] [address] [place] [address] Dr. Giacomo Mace CO2 [Moles/Vol] 27.8 mmol/L Normal 21.0-32.0 [facility] Comment on above: Performed By: #### B MP, LIPID #### [facility] [address] [place] [address] Dr. Giacomo Mace Creatinine [Mass/Vol] 1.08 mg/dL Normal 0.70-1.30 [facility] Comment on above: Performed By: #### B MP, LIPID #### [facility] [address] [place] [address] Dr. Giacomo Mace EGFR-AF PALAUAN >60 Normal >=60 [facility] Comment on above: Performed By: #### B MP, LIPID #### [facility] [address] [address] [address] Giacomo Mace EGFR-NON AF PALAUAN >60 Normal >=60 [facility] Comment on above: Performed By: #### B MP, LIPID #### [facility] [address] [address] [address] Giacomo Mace Glucose [Mass/Vol] 111 mg/dL Critically high 74-106 [facility] Comment on above: Performed By: #### B MP, LIPID #### [facility] [address] [address] [address] Giacomo Mace Potassium [Moles/Vol] 4.4 mmol/L Normal 3.5-5.1 [facility] Comment on above: Performed By: #### B MP, LIPID #### [facility] [address] [address] [address] Giacomo Mace Sodium [Moles/Vol] 137 mmol/L Normal 136-145 [facility] Comment on above: Performed By: #### B MP, LIPID #### [facility] [address] [address] [address] Giacomo Mace Urea nitrogen [Mass/Vol] 27.0 mg/dL Critically high 7.0-18 .0 [facility] Comment on above: Performed By: #### B MP, LIPID #### [facility] [address] [address] [address] Giacomo Mace Urea nitrogen/Creatinine [Mass ratio] 25.0 mg/mg Normal [facility] Comment on above: Performed By: #### B MP, LIPID #### [facility] [address] [address] [address] Giacomo Mace ECHOCARDIO M/2D COMPLETEon 0 07-09-2022 ECHOCARDIO M/2D COMPLETE Patient: KANG BRADY Exam Date: 07/09/2022 : 1940 Gender:M Ordering : TITA RIVERA [facility] Admission #: [id number] Family : DR TIMBO BAIG D.O. Order #: [id number] CLICK HERE TO VIEW EXAM ECHOCARDIOGRAM REPORT [...] Davis M.D. on 07/10/2022 at 14:46 Normal [facility] CPKon 04-27-2022 CK [Catalytic activity/Vol] 96 U/L Normal 39-308 [facility] Comment on above: Performed By: #### C RP, CK #### [facility] [address] [place] [address] Dr. Giacomo Mace CRPon 04-27-2022 CRP [Mass/Vol] mg/L Normal <=1.0 [facility] Comment on above: Performed By: #### C RP, CK #### [facility] [address] [place] [address] Dr. Giacomo Mace ELECTROLYTESon 04-18-2022 Anion gap [Moles/Vol] 11.8 mmol/L Normal [facility] Comment on above: Performed By: #### E LEC #### [facility] [address] [place] [address] Dr. Giacomo Mace Chloride [Moles/Vol] 104 mmol/L Normal 98-107 [facility] Comment on above: Performed By: #### E LEC #### [facility] [address] [place] [address] Dr. Giacomo Mace CO2 [Moles/Vol] 27.5 mmol/L Normal 21.0-32.0 [facility] Comment on above: Performed By: #### E LEC #### [facility] [address] [place] [address] Dr. Giacomo Mace Potassium [Moles/Vol] 4.3 mmol/L Normal 3.5-5.1 [facility] Comment on above: Performed By: #### E LEC #### [facility] [address] [place] [address] Dr. Giacomo Mace Sodium [Moles/Vol] 139 mmol/L Normal 136-145 [facility] Comment on above: Performed By: #### E LEC #### [facility] [address] [place] [address] Dr. Giacomo Mace XR KUB 1 VIEWon [...] by: IVY DOMINGUEZ Date: 2022-04-18 08:04 Normal [facility] Vital Signs Date Time Vital Sign Value Performing Clinician Facility 03-15-2024 11:40-0400 Body height 177.8 cm [facility] 03-15-2024 11:40-0400 Body mass index (BMI) [Ratio] 29 kg/m2 [facility] 03-15-2024 11:40-0400 Body weight 91.73 kg [facility] 03-15-2024 11:40-0400 Diastolic blood pressure 76 mm[Hg] [facility] 03-15-2024 11:40-0400 Heart rate 66 /min [facility] 03-15-2024 11:40-0400 Respiratory rate 12 /min [facility] 03-15-2024 11:40-0400 Systolic blood pressure 129 mm[Hg] [facility] 01-08-2024 14:10-0500 Body height 177.8 cm [facility] 01-08-2024 14:10-0500 Body mass index (BMI) [Ratio] 28.8 kg/m2 [facility] 01-08-2024 14:10-0500 Body weight 90.94 kg [facility] 11-21-2023 10:30-0500 Body height 177.8 cm [employer] Other [employer] [facility] [employer] Other 11-21-2023 10:30-0500 Body mass index (BMI) [Ratio] 29.12 kg/m2 [employer] Other [employer] Other 11-21-2023 10:30-0500 Body weight 92.08 kg Timbo Ball Other [employer] Other 11-21-2023 10:30-0500 Diastolic blood pressure 66 mm[Hg] Timbo Ball Other [employer] Other 11-21-2023 10:30-0500 Respiratory rate 12 /min Timbo Ball Other [employer] Other 11-21-2023 10:30-0500 Systolic blood pressure 103 mm[Hg] Timbo Ball Other [employer] Other 09-24-2023 11:00-0500 Body height 177.8 cm Timbo Ball Other [employer] Other 09-24-2023 11:00-0500 Body mass index (BMI) [Ratio] 28.69 kg/m2 Timbo Ball Other [employer] Other 09-24-2023 11:00-0500 Body weight 90.72 kg Timbo Ball Other [employer] Other 09-24-2023 11:00-0500 Diastolic blood pressure 73 mm[Hg] Timbo Ball Other [employer] Other 09-24-2023 11:00-0500 Respiratory rate 12 /min Timbo Ball Other [employer] Other 09-24-2023 11:00-0500 Systolic blood pressure 134 mm[Hg] Timbo Ball Other [employer] Other 08-25-2023 12:21-0400 Blood Pressure Location Puma LOYA [facility] 08-25-2023 12:21-0400 Diastolic blood pressure 82 mm[Hg] Puma LOYA [facility] 08-25-2023 12:21-0400 Heart rate 80 /min Pumaaleksandr LOYA [facility] 08-25-2023 12:21-0400 Respiratory rate 16 /min Puma LOYA [facility] 08-25-2023 12:21-0400 Systolic blood pressure 137 mm[Hg] Puma LOYA [facility] 04-12-2023 09:16-0400 Body temperature 97 [degF] PA Aury Shehorn Work Phone: [facility] 04-12-2023 09:16-0400 Body weight 88.45 kg PA Aury Shehorn Work Phone: [facility] 04-12-2023 09:16-0400 Diastolic blood pressure 62 mm[Hg] PA Aury Shehorn Work Phone: [facility] 04-12-2023 09:16-0400 Heart rate 80 /min PA Aury Shehorn Work Phone: [facility] 04-12-2023 09:16-0400 SaO2% (BldA) [Mass fraction] 96 % PA Aury Shehorn Work Phone: [facility] 04-12-2023 09:16-0400 Systolic blood pressure 123 mm[Hg] PA Aury Shehorn Work Phone: [facility] 03-24-2023 12:00-0400 Body height 177.8 cm Timbo Ball Other [facility] Other 03-24-2023 12:00-0400 Body mass index (BMI) [Ratio] 28.44 kg/m2 Timbo Ball Other [employer] Other 03-24-2023 12:00-0400 Body weight 89.9 kg Timbo Ball Other [employer] Other 03-24-2023 12:00-0400 Diastolic blood pressure 67 mm[Hg] Timbo Ball Other [employer] Other 03-24-2023 12:00-0400 Respiratory rate 12 /min Timbo Ball Other [employer] Other 03-24-2023 12:00-0400 Systolic blood pressure 123 mm[Hg] Timbo Ball Other [employer] Other 04-29-2022 14:30-0400 Body height 177.8 cm Niya Rutjorge Other [employer] Other 04-29-2022 14:30-0400 Body mass index (BMI) [Ratio] 28.69 kg/m2 Niya Rutjorge Other [employer] Other 04-29-2022 14:30-0400 Body temperature 96.3 [degF] Niya Samuel Other [employer] Other 04-29-2022 14:30-0400 Body weight 90.72 kg Niya Chowjorge Other [employer] Other 04-29-2022 14:30-0400 Diastolic blood pressure 80 mm[Hg] Niya Baker Other [employer] Other 04-29-2022 14:30-0400 SaO2% (BldA) [Mass fraction] 98 % Niya Baker Other [facility] [employer] Other 04-29-2022 14:30-0400 Systolic blood pressure 120 mm[Hg] Niya Baker Other [facility] [employer] Other 04-19-2022 10:04-0400 Blood Pressure Location Puma LOYA [facility] 04-19-2022 10:04-0400 Diastolic blood pressure 84 mm[Hg] Puma LOYA [facility] 04-19-2022 10:04-0400 Heart rate 67 /min Puma LOYA [facility] 04-19-2022 10:04-0400 Respiratory rate 16 /min Puma LOYA [facility] 04-19-2022 10:04-0400 Systolic blood pressure 143 mm[Hg] Puma LOYA [facility] Encounters Encounter Date Encounter Type Care Provider Facility Start: 03-15-2024 End: 03-15-2024 ambulatory [facility] Work Phone: Start: 03-15-2024 End: 03-15-2024 Patient encounter procedure [facility] Work Phone: Start: 02-11-2024 End: 02-11-2024 ambulatory NAVNEET BLANC Not Available Start: 01-15-2024 End: 01-15-2024 ambulatory TITA RIVERA [facility] Start: 01-08-2024 End: 01-08-2024 Patient encounter procedure [facility] Neurosurgery Work Phone: Start: 12-26-2023 Non-patient / Non-visit [facility] Work Phone: Start: 12-17-2023 End: 12-17-2023 ambulatory TITA [facility] Start: 11-21-2023 End: 11-21-2023 ambulatory Timbo Baig Other [employer] Other Start: 11-21-2023 Office outpatient vi sit 15 minutes Timbo Baig [facility] Start: 10-08-2023 End: 10-08-2023 ambulatory Timbo Jovanni Other [employer] Other Start: 10-08-2023 Telephone encounter Timbo Baig [facility] Start: 09-24-2023 End: 09-24-2023 ambulatory Timbo Jovanni Other [employer] Other Start: 09-24-2023 Office outpatient vi sit 25 minutes Timbo Baig [facility] Start: 09-04-2023 Office outpatient vi sit 15 minutes Jaylon Finnegan [facility] Vascular Surgery Start: 09-04-2023 End: 09-04-2023 ambulatory DO Timbo Baig Work Phone: [employer] Other Start: 09-04-2023 End: 09-04-2023 Patient encounter procedure DO Timbo Jovanni Work Phone: [facility] Start: 08-25-2023 End: 08-26-2023 ambulatory Puma LOYA Facility: [place] Start: 08-25-2023 End: 08-25-2023 Patient encounter procedure Puma LOYA [facility] Jose David Start: 2023 End: 2023 ambulatory Niya Baker Other [facility] [employer] Other Start: 2023 Telephone encounter Niya Samuel [facility] Start: 05-22-2023 End: 05-23-2023 ambulatory Puma Clint REINIER [facility] [employer] Other Start: 05-22-2023 Telephone encounter Niya Samuel [facility] Start: 05-01-2023 End: 05-01-2023 ambulatory Niya R Courtneyconstance Facility:[facility] Start: 05-01-2023 End: 05-01-2023 ambulatory DO Timbo Baig Work Phone: [facility] Work Phone: Start: 05-01-2023 End: 05-01-2023 Patient encounter procedure DO Timbo Baig Work Phone: [facility] Start: 04-21-2023 End: 04-22-2023 ambulatory Puma Clint LOYA Facility:[facility] Start: 04-12-2023 End: 04-12-2023 ambulatory PA Aury Shehorn Work Phone: [facility] Work Phone: Start: 04-12-2023 End: 04-12-2023 Patient encounter procedure PA Aury Shehorn Work Phone: [facility] Work Phone: Start: 04-02-[address] TIMBO BAIG Facili ty:[facility] Start: 03-24-2023 End: 03-24-2023 ambulatory Timbo Baig Other [facility] [employer] Other Start: 03-24-2023 Patient encounter procedure Timbo Baig [facility] Jovanni [facility] Start: 09-25-2022 End: 09-26-[address] TIMBO BAIG Facility:[facility] Start: 07-09-2022 End: 07-10-2022 ambulatory TITA RIVERA Facility:[facility] Start: 04-29-2022 End: 04-29-2022 ambulatory Niya Baker Other [place] [employer] Other Start: 04-29-2022 Follow-up encounter Niya Barber [facility] Start: 04-29-2022 End: 04-29-2022 Patient encounter procedure DO Timbo Jovanni Work Phone: [facility] Start: 04-27-2022 End: 04-28-[address] TIMBO BAIG Facility:[facility] Start: 04-19-2022 End: 04-19-2022 Patient encounter procedure Pmua LOYA [facility] Start: 04-18-2022 End: 04-19-[address] PUMA LOYA . Facility:[facility] Start: 03-13-2022 Adult health examination Jaylon Finnegan Other [facility] [employer] Other Procedures Date Procedure Procedure Detail Performing Clinician Start: 09-04-2023 Ankle brachial press ure index DO Timbo Baig Work Phone: Start: 05-22-2023 Extracorporeal shock wave lithotripsy of calculus of kidney Puma LOYA Start: 04-12-2023 Flu B ANDERSON Ann Work Phone: Start: 04-12-2023 Rapid Strep ANDERSON Jeffers Shehosaima Work Phone: Start: 08-31-2020 Extracorporeal shock wave [...] object) Puma LOYA Start: 09-18-2009 Cystoscopy Puma EDITH HAGANScarlet Start: 11-10-2002 Cystoscopy Puma EDITH LEWIS Start: 11-10-2002 Transurethral prostatectomy Puma LOYA Comment on above: w/ Cystoscopy Start: 11-10-2001 Transrectal biopsy o f prostate using ultrasound guidance Puma LOYA Cystoscopy Puma LOYA Depression screening Jaylon Finnegan Other Hemorrhoidectomy Puma CARLTON ABREU Herniated structure (morphologic abnormality) Puma LOYA Urodynamic studies Puma SMITH Plan of Treatment Date Care Activity Detail Author Start: 08-30-2024 ambulatory Ambulatory Facility:[facility] Start: 01-08-2024 Patient referral [facility] Work Phone: Start: 05-01-2023 Doppler ultrasonography of bilateral carotid arteries US carotid doppler [facility] Start: 05-01-2023 US.doppler Carotid arteries - bilateral [facility] Start: 04-29-2022 Doppler ultrasonography of bilateral carotid arteries US carotid doppler [facility] Comprehensive metabo lic 2000 panel - Serum or Plasma [facility] Patient Education Viral Syndrome (AC) [facility] [employer], [employer] Work Phone: Patient referral [facility] Work Phone: XR Lumbar spine 4 Views [facility] Immunizations Immunization Date Immunization Notes Care Provider Fa cility 08-04-2022 COVID-19 Pfizer (bivalent) Timbo Baig Other [facility] 08-04-2022 influenza virus vaccine, unspecified formulation Puma LOYA [facility] 08-04-2022 influenza, high dose seasonal, preservative-free Timbo Baig Other [facility] Other 02-21-2022 COVID-19 Pfizer Timbo velasco Other [facility] 02-21-2022 SARS-CoV-2 mRNA ([id number] se) vaccine Puma LOYA [facility] 09-06-2021 zoster vaccine recombinant Timbo Baig Other [facility] 08-10-2021 influenza virus vaccine, unspecified formulation Puma LOYA [facility] 08-07-2021 COVID-19 Vaccine Pfi zer - Documentation Purposes Only Timbo Baig Other [facility] Comment on above: Result Comment: 2022: [id number] 07-19-2021 influenza virus vaccine, unspecified formulation Puma LOYA [facility] 05-16-2021 zoster vaccine recombinant Timbo Baig Other [facility] 01-09-2021 COVID-19 Vaccine Pfi zer - Documentation Purposes Only Timbo Baig Other [facility] Comment on above: Result Comment: 2022: [id number] 12-19-2020 COVID-19 Vaccine Pfi zer - Documentation Purposes Only Timbo Baig Other [facility] Comment on above: Result Comment: 2022: [id number] 07-31-2020 influenza virus vaccine, unspecified formulation Puma LOYA [facility] 08-20-2019 influenza virus vaccine, split virus (incl. purified surface antigen) Jaylon Finnegan Other [facility] Other 08-20-2019 influenza virus vaccine, unspecified formulation [facility] 08-10-2019 influenza virus vaccine, unspecified formulation Puma LOYA [facility] 02-19-2019 pneumococcal polysaccharide vaccine, 23 valent Timbo Baig Other [facility] 09-21-2018 influenza virus vaccine, unspecified formulation Puma Bonafide [facility] 08-19-2018 influenza virus vaccine, split virus (incl. purified surface antigen) Jaylon Finnegan Other [employer] Other 08-19-2018 influenza virus vaccine, unspecified formulation [facility] 02-16-2018 pneumococcal conjuga te vaccine, 13 valent Timbo Baig Other [facility] 09-02-2017 influenza virus vaccine, unspecified formulation Puma Bonafide [facility] 08-28-2016 influenza virus vaccine, unspecified formulation Puma LOYA [facility] 08-22-2015 influenza virus vaccine, unspecified formulation Puma LOYA [facility] 08-19-2013 influenza virus vaccine, unspecified formulation Puma LOYA [facility] Payers Date Payer Category Payer Self-pay [id number] 1957 Medicare [id number] 1959 Private Health Insurance [id number] 1940 Unknown [id number] 3 1940 Unknown [id number] 3 1940 Unknown [id number] 3 1940 Unknown [id number] [id number] 3 1940 Unknown [id number] [id number] 3 1940 Unknown [id number] [id number] 7 1940 Unknown [id number] [id number] 7 1940 Unknown [id number] [id number] 7 1940 Unknown [id number] [id number] 7 1940 Unknown [id number] [id number] 61 Medicare MEDICARE PARTS A & B [id number] Unknown [id number] 1 Unknown [id number] 1 Social History Date Type Detail Facility Start: 08-27-2021 End: 04-21-2023 Tobacco smoking status Ex-smoker (finding) [facility] Sex Assigned At Male [facility] Start: 1940 Sex Assigned At Male F [facility] Start: 04-12-[address] [facility] Start: 04-12-[address] [facility] Start: 03-12-2024 Tobacco smoking stat us RIIS Never smoked tobacco (finding) [facility] Functional Status Date Assessment Result Facility 08-25-2023 Functional Status N/A [facility] Clinical Notes 04-19-2022 to 01-15-2024 [...] All other systems reviewed and are negative. [facility] 01-15-2024 Note Cardiovascular Medic in[facility] SUBJECTIVE Chief Complaint Patient presents with Coronary Artery Disease Congestive Heart Failure Hypertension Hyperlipidemia Kang Brady is a 83 y.o. male here for follow-up. HPI PMHx: AVR 2014, CAD s/p CABG x1 2015, HTN, carotid stent by vascular surgeon in [place] (Dr. Cedillo) 01/15/2024 He notes that his [...] Mild mitral va (more content not included)... [facility] 12-17-2023 Note Patient here for 1 y [...] All other systems reviewed and are negative. [facility] 12-17-2023 Note Cardi[facility] SUBJECTIVE No chief complaint on file. Kang Brady is a 83 y.o. male here for follow-up. HPI PMHx: AVR 2014, CAD s/p CABG x1 2015, HTN, carotid stent by vascular surgeon in [place] (Dr. Cedillo) He works out a few [...] valve disease Hypertension PVD (peripheral vascular disease) ([facility]) Sleep apnea Family History Problem Relation Name [...] aortic stenosis by invasive hemodynamic study. 2. Seiirxyj-jj-umhtms two-vessel coronary artery disease involving the left anterior descending and left circumflex coronary arteries. 3. Normal right-sided heart pressures and wedge pressure. 4. Normal cardiac output/cardiac index. 5. 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 (more content not included)... [facility] 11-21-2023 Evaluation note Encounter Date Diagnosis Assessment [...] a couple years. - previously referred to [facility] Neurosurgery but declined treatment He feels [...] and feet daily for blisters and ulcerations. [facility] 11-15-2023 Evaluation note* Encounter Date Diagnosis [...] w/ serial Echocardiogram Control BP and HR [facility] Other 10-26-2023 Evaluation note* Encounter Date Diagnosis [...] pain which seems to be bothering him. [facility] 10-16-2023 Hospital Discharge instructions Patient Education [...] include: ?8 oz (237 mL) of milk, rhlqhzs-zjtehlkvrkma-svpgi milk, and calcium- fortifiedfruit juice. Calcium-fortified means [...] ?Spinach (cooked), rhubarb, beets, sweet potatoes, and Bangladeshi chard. ?Peanuts. ?Potato chips, latvian fries, and baked potatoes with skin on. ?Nuts and nut products. ?Chocolate. If you regularly take a diuretic medicine, make sure to eat at least 1 or 2 servings of fruits or vegetables that are high in potassium each day. These include: ?Avocado. ?Banana. ?[place], prune, carrot, or tomato juice. ?Baked potato. [...] magnesium, fish oil, or vitamin B6. Take smel-ylu-nhinxov and prescription medicines only as told by [...] Casseroles. Pizza. Lasagna. Frozen meals. Potato chips. Emirati fries. The items listed above may not [...] provider. Document Revised: 07/08/2022 Document Reviewed: 07/08/2022 [employer]haali Patient Education 2022 [employer]. Follow Up Care 05/30/2023 13:07:47 With:REINIER HUSAIN, Puma Jaramillo, URL Address: [facility] [address], [place] [address]- When:Within 1 Year(s) Comments:w/MELQUIADES [facility] Jose David 05-15-2023 Evaluation note* Encounter Date Diagnosis Assessment [...] High risk medication use (ICD-10 - Z79.899) [facility] Other 06-20-2022 Evaluation note* Encounter Date Diagnosis [...] agrees with this plan, denies any questions. [facility] Other 06-10-2022 Hospital Discharge instructions Patient Education 04/19/2022 10:54:30 Kidney Stones, Hepu-br-Fhdw Kidney Stones Kidney stones are rock-like masses [...] Follow these instructions at home: Medicines Take fsoq-stv-ebzghpx and prescription medicines only as told by [...] 04/14/2009 Document Revised: 03/14/2020 Document Reviewed: 03/14/2020 Ahaali Patient Education 2020 [employer]. Follow Up Care 08/27/2021 10:53:23 With:REINIER HUSAIN, Puma Jaramillo, URL Address: [facility] [address], [place] [address]- [phone] When:04/19/2023 [facility] evaluation + Plan note Future Appointments Appointment Date:04/21/2023 09:45:00 AM Scheduled Provider:Puma LOYA MD Location:[facility] Appointment Type:URO Office Visit [facility] evaluation + Plan note Future Appointments Appointment Date:08/30/2024 10:30:00 AM Scheduled Provider:Puma LOYA MD Location:[facility] Appointment Type:URO Office Visit [facility] evaluation noteNo assessment information available [facility] Work Phone: Evaluation note* Diagnosis Onset Date Resolution Status Viral URI acute [facility] Work Phone: Evaluation noteNo InformationNort D-ÉG [employer] Other Evaluation note* Diagnosis Onset Date Resolution Status Herniation of intervertebral disc between L5 and S1 acute Left foot drop acute Lumbar radiculopathy, chronic acute Sacroiliitis, not elsewhere classified acute ASHD (arteriosclerotic heart disease) acute 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 acute Carotid stenosis, bilateral acute Chronic kidney disease acute Hypercholesterolemia acute Hypertension acute Lumbar spondylosis with myelopathy acute Medicare annual wellness visit, subsequent noneactive [facility] Work Phone: Hisxdmd general Narrative - Reported* Type Description Date Medical History carotid stenosis Medical History HTN Surgical History heart valve replaced 2013 Surgical History left internal carotid angioplas ty and stent 2011 [facility] Other [facility] general Narrative - Reported* Type Description Date [...] EGD 2020 Surgical History ESWL, KIDNEY, RIGHT 2020 Hospitalization History SEE SURGICAL HX [facility] Other [facility] general Narrative - Reported* Type Description Date [...] kidney 05/2023 Hospitalization History SEE SURGICAL HX [facility] Other Hospital course Narrative No data available for this section [facility] progress note No data available for this section [facility] reason for referral (narrative)* Reason Referral for lumbar foraminal stenosis and left lower extremity weakness. 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 372) Referral Organization [facility] penny Referring Provider First Name Timbo Referring Provider Last Name Jovanni Referring Provider Specialty Internal Me dicine Referred Organization [facility] Referred Provider Boby Mai [address] Address [address] [place],[address] Referred Provider Specialty Neurological Surgery Referral Priority [...] Notes Include recent and p revious MRI [employer] [facility] [employer] Other Chief Complaint and Reason for Visit Chief Complaint i65.23 Chief Complaint drainage in throat Reason for Visit Viral URI Chief Complaint I65.23 Chief Complaint I70.213 Chief Complaint lumbar foraminal [place] nosis, left lower weakness Wellness Reason for Visit 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 Left foot drop Lumbar radiculopathy, chronic Sacroiliitis, not elsewhere classified ASHD (arteriosclerotic heart disease) 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 Carotid stenosis, bilateral Chronic kidney disease Hypercholesterolemia Hypertension Lumbar spondylosis with myelopathy Medicare annual wellness visit, subsequent Advance Directives Advance Directive Response Recorded Date/ Time Advance Directives No March 08 1:37pm Advance Directive Response Recorded Date/ Time Advance Directives Yes December 3:47pm Summary Purpose Family History Relationship Condition Age at Onset Recorded Date/T marcia father Diabetes mellitus Unknown Unknown Not Specified Unknown Heart disease Unknown Diabetes mellitus Unknown Additional Source Comments Care Teams (unrecognized sec tion and content) Team Status: Active Member Role Status Dates Timbo Baig DO Primary Care Provider Active Team Status: Active Member Role Status Dates Timbo Baig DO Primary Care Provide r, Attending Provider Active Start: December 26, 2023 Team Status: Inactive Member Role Status Dates Timbo Baig DO Primary Care Provide r, Referring Provider Active Start: January 08, 2024 End: January 08, 2024 FREEMAN Go Attending Provider Active Start: January 08, 2024 End: January 08, 2024 Team Status: Inactive Member Role Status Dates Timbo Baig DO Primary Care Provide r, Attending Provider Active Start: March 15, 2024 End: March 15, 2024 Team Status: Inactive Member Role Status Dates [...] Provider Active FREEMAN Cabrera Attending Provider Active Team Status: Active Member Role Status Dates Timbo Baig DO Primary Care Provide r, Attending Provider Active Start: December 26, 2023 Team Status: Inactive Member Role Status Omar Baig DO Primary Care Provide r, Referring Provider Active Start: January 08, 2024 End: January 08, 2024 FREEMAN Go Attending Provider Active Start: January 08, 2024 End: January 08, 2024 Team Status: Inactive Member Role Status Dates Timbo Baig DO Primary Care Provide r, Attending Provider Active Start: March 15, 2024 End: March 15, 2024 Goals (unrecognized section and content) Goals may be documented in a n alternate section REASON FOR VISIT (unrecogniz ed section and content) VASC 1 YR FU; CAROTID DUPLEX 1PWELLNESS MBNo InformationERRORMedication Clarification4 month follow up; CHING's B/L legs at 11:006 month Follow up6 month Follow upMRI resultsface to face for AFO brace- fax note to [phone] (unrecognized sect ion and content) No Status Records FoundNo Status Records FoundNo Status Records FoundNo Status Records FoundNo Status Records Found INFORMATION SOURCE (unrecogn ized section and content) DATE CREATED AUTHOR 03/25/2023 [facility] DATE CREATED AUTHOR AUTHOR'S ORGANIZ ATION 09/14/2023 [facility] DATE CREATED AUTHOR AUTHOR'S ORGANIZ ATION 10/24/2023 [facility] DATE CREATED AUTHOR AUTHOR'S ORGANIZ ATION 01/16/2024 [facility] DATE CREATED AUTHOR AUTHOR'S ORGANIZ ATION 02/12/2024 [facility] EPIC FOR RECORDS PERTAINING [...] BE BASED ON THE PRIMARY CLINICAL RECORDS. [employer] provides no warranty or guarantee of the accuracy or completeness of information in this document.
[2024-04-07 08:17] LABS: Alanine Aminotransferase 22 U/L (16-63); Albumin Globulin Ratio 0.9; Albumin Level 3.4 g/dL (3.4-5.0); Alkaline Phosphatase 67 U/L (46-116); Anion Gap 10.6; Aspartate Amino Transferase 20 U/L (15-37); BUN Creatinine Ratio 16.7; Basophils Percent Auto 0.6 % (0.2-2.0); Calcium 8.9 mg/dL (8.5-10.1); Carbon Dioxide 29.8 mmol/L (21.0-32.0); Chloride 103 mmol/L (98-107); Chol HDL Ratio 2.5; Cholesterol 150 mg/dL (<=200); Eosinophils Absolute Auto 0.5 10^3/uL (0.0-0.7); Eosinophils Percent Auto 9.8 % (0.9-7.0); Estimated GFR (African America >60 (>=60); Estimated GFR (Non-African Ame 55 (>=60); Globulin 3.8 g/dL; Glucose 109 mg/dL (74-106); HDL Cholesterol 59 mg/dL (40-60); Hematocrit 44.7 % (42.0-54.0); Hemoglobin 14.3 g/dL (14.0-18.0); Immature Granulocytes Abs Auto 0.02 10^3/uL (0.00-0.03); Immature Granulocytes Pct Auto 0.4 % (0.0-0.5); LDL Cholesterol Calculated 67.2 mg/dL; Lymphocytes Absolute Auto 1.5 10^3/uL (1.2-3.8); Lymphocytes Percent Auto 28.6 % (20.5-60.0); Mean Corpuscular Hemoglobin 30.2 pg (25.9-34.0); Mean Corpuscular Volume 94.5 fL (80.0-94.0); Mean Platelet Volume 11.2 fL (9.5-13.5); Monocytes Absolute Auto 0.6 10^3/uL (0.3-0.8); Monocytes Percent Auto 11.7 % (1.7-12.0); Neutrophils Absolute Auto 2.6 10^3/uL (1.4-6.5); Neutrophils Percent Auto 48.9 % (43.0-75.0); Platelet Count 196 10^3/uL (150-450); Potassium 3.4 mmol/L (3.5-5.1); Red Blood Count 4.73 10^6/uL (4.70-6.10); Sodium 140 mmol/L (136-145); Thyroid Stimulating Hormone 8.383 uIU/mL (0.358-3.740); Total Protein 7.2 g/dL (6.4-8.2); Triglycerides 119 mg/dL (<=150); VLDL CHOLESTEROL 23.8 mg/dL; White Blood Count 5.2 10^3/uL (4.0-11.0)
--- NOTE | 2024-04-07 08:49 | CA_ITS ---
Patient Name: KANG BRADY MR#: [id number] : 1940 Exam Date: 04/07/2024 Ordering Doctor: DR Timbo Baig D.O. ECHOCARDIOGRAM REPORT PROCEDURE: CA ECHO DOPPLER COMPLETE INDICATIONS: Nonrheumatic Mitral valve stenosis COMPARISON: None. DESCRIPTION: COMPLETE ECHOCARDIOGRAM Real-time transthoracic echocardiography with 2D, M-mode, spectral and color flow Doppler performed. QUALITY: Technical quality was good. LEFT VENTRICLE: Normal chamber size. Moderate to severely increased left ventricular wall thickness. LV EF: Global left ventricular systolic function is hyperdynamic; visually estimated ejection fraction 65 to 70%. No wall motion abnormalities. DIASTOLIC: Grade II diastolic dysfunction. E/E' consistent with volume overload. ATRIAL SEPTUM: Inadequately seen. LEFT ATRIUM: Severe dilatation. RIGHT ATRIUM: Normal chamber size. RIGHT VENTRICLE: Normal chamber size. Normal right ventricular systolic function. TRICUSPID VALVE: Normal mobility and thickness. Mild regurgitation. No evidence of pulmonary hypertension. RVSP 29mmHg MITRAL VALVE: Moderately thickened. Mild mitral valve stenosis. Severe mitral annular calcification. Trivial mitral regurgitation. MVA 1.1cm2. Gradients may be overestimated due to hyperdynamic function and volume overload. AORTIC VALVE: Bio-Prosthetic valve appears well seated in the aortic position with normal Doppler flow. Doppler velocity suggests no significant aortic valve stenosis. DVI 0.4, 2.6m/s, Mean gradient 15mmHg. No aortic regurgitation. AORTIC ROOT: Normal diameter and appearance. PULMONIC VALVE: Normal thickness and mobility. No stenosis. No regurgitation. PERICARDIUM: Anterior free space; trivial effusion versus fat pad. IVC: Collapses with inspirations. Normal size. CONCLUSION: 1. Global left ventricular systolic function is hyperdynamic; visually estimated ejection fraction is 65 to 70% 2. Moderately to severely increased left ventricular wall thickness 3. Normal right ventricular size and systolic function 4. Grade 2 diastolic dysfunction 5. E/E' consistent with volume overload 6. The left atrium is severely dilated 7. Mild tricuspid regurgitation 8. Mild mitral stenosis 9. 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 Anterior free space; trivial effusion versus Adult Echocardiography Procedure Report Left Ventricle LVEDD (3.7 - 5.6 cm): 3.14 cm LVESD (2.2 - 4.0 cm): 2.34 cm LVIVS thickness (0.6 - 1.2 cm): 1.77 cm LVPW thickness (0.5 - 1.0 cm): 1.29 cm e': 0.05 m/s E - e': 18.10 LVOT Max Gradient: 4.36 mm[Hg] LVOT Area (cm2): 1.04 m/s Peak Velocity (LVOT): 1.04 m/s Mean Velocity (LVOT): 0.78 m/s LVOT Diameter 1.77 cm Left Ventricular Ejection Fraction: 55.08 % Left Atrium LA Volume Index (2D A2C): 56.99 ml/m2 Left Atrium Systolic Dimension: 3.42 cm Mitral Valve MV E to A Ratio: 0.76 Mitral Valve A-Wave Peak Velocity: 1.22 m/s Mitral Valve E-Wave Peak Velocity: 0.93 m/s Right Ventricle RV Internal Diastolic Dimension: 3.37 cm Aorta AO Root Diam: 3.01 cm Ascending Ao Diam: 3.40 cm Aortic Valve AoV Area (Peak Brady): 0.89 cm2, 0.98 cm2 AoV Area (VTI): 0.86 cm2, 1.02 cm2 Peak Velocity(Antegrade Flow): 2.63 m/s, 3.18 m/s Peak Gradient(Antegrade Flow): 27.64 mm[Hg], 40.41 mm[Hg] Mean Velocity(Antegrade Flow): 1.84 m/s, 2.11 m/s Mean Gradient(Antegrade Flow): 15.09 mm[Hg], 20.81 mm[Hg] Velocity Time Integral: 46.27 cm, 63.80 cm Tricuspid Valve Peak Velocity (Regurgitant Flow): 2.54 m/s, 2.53 m/s, 2.48 m/s Pulmonic Valve Mean Gradient: 2.69 mm[Hg], 2.57 mm[Hg] Mean Velocity: 0.80 m/s, 0.77 m/s Peak Velocity: 1.06 m/s Peak Gradient: 4.76 mm[Hg], 4.23 mm[Hg] Right Atrium Right Atrium Systolic Pressure: 30.35 ml, 30.35 ml Dictated by: Ilene Davis M.D. on 04/07/2024 at 16:08 Approved by: Ilene Davis M.D. on 04/07/2024 at 16:15
== END 2024-04-07 07:31 | disposition home or self-care (01) ==
LOC: LAB 07:31
PROVIDERS: PCP Internal Medicine; Visit Provider Internal Medicine
DX: I34.2 Nonrheumatic mitral (valve) stenosis (principal); E78.00 Pure hypercholesterolemia, unspecified; N18.9 Chronic kidney disease, unspecified; I25.10 Atherosclerotic heart disease of native coronary artery without angina pectoris; I50.9 Heart failure, unspecified; R53.83 Other fatigue; I70.213 Atherosclerosis of native arteries of extremities with intermittent claudication, bilateral legs; I12.9 Hypertensive chronic kidney disease with stage 1 through stage 4 chronic kidney disease, or unspecified chronic kidney disease
CPT/HCPCS: 36415; 80053; 80061; 83880; 84443; 85025; 93306

== ENCOUNTER 2024-04-13 12:54 | Outpatient (OUT) | payer MEDICARE, OTHER, SELFPAY | END 2024-04-13 12:55 | disposition home or self-care (01) | LOC: PST 12:54 | PROVIDERS: PCP Internal Medicine; Visit Provider Ophthalmology | DX: Z01.818 Encounter for other preprocedural examination (principal); H25.811 Combined forms of age-related cataract, right eye ==

== ENCOUNTER 2024-04-15 07:25 | Day surgery (SDC) | payer MEDICARE, OTHER, SELFPAY ==
--- NOTE | 2024-04-14 | HP_ITS ---
Date:? 04/14/2024 HISTORY:? The patient is an 83-year-old white male with complaints of declining vision out of his right eye.? The onset of this has occurred over the last 2-4 years.? Generally, he states having difficulty seeing road signs at a distance, as well as the television.? He states night time driving is difficult due to the headlights creating glare and halos.? Additionally, he states having difficulty seeing his computer.? PAST OCULAR HISTORY / PAST MEDICAL HISTORY / SOCIAL HISTORY / MEDICATIONS / ALLERGIES TO MEDICATIONS / REVIEW OF SYSTEMS / PHYSICAL EXAM:? Unchanged from previously dictated. ASSESSMENT / PLAN:? Visually significant cataract right eye.? After risks, benefits, alternatives, as well as expectations were delivered to the patient, he elected to go forward with cataract removal.? He understands the risks include but not limited to infection, bleeding, loss of vision, loss of the eye itself.? Secondly, he understands that postoperatively he is likely required to require spectacle correction for his best visual acuity.? Finally, a complete ophthalmic exam was performed.? There is not determined to be any other source of visual decline other than that of the cataract. After understanding all the risks as well as expectations, he elected to go forward with cataract removal and will be doing so in the near future. GINA
--- NOTE | 2024-04-15 | OP_ITS ---
OP Note OPERATION DATE: ??04/15/2024 SURGEON:? Brett Mueller M.D. PREOPERATIVE DIAGNOSIS:? Nuclear sclerotic cataract right eye. POSTOPERATIVE DIAGNOSIS:? Nuclear sclerotic cataract right eye. PROCEDURE NAME:? Cataract extraction with intraocular lens placement for the right eye. ANESTHESIA:? Topical. ESTIMATED BLOOD LOSS:? Zero. COMPLICATIONS:? None. PROCEDURE:? The patient was brought to the Operating Room in supine position.? After proper identification, the right eye was prepped and draped in a sterile ophthalmic fashion.? A paracentesis created at the 11 o'clock position.? Approximately 1 cc of unpreserved Xylocaine was injected into the anterior chamber followed by Amvisc Plus.? Using a 2.6 mm Keratome blade, a clear corneal incision was created at the 8 o'clock limbus.? A cystotome was then used to begin a curvilinear capsulorrhexis that was continued for 360 degrees with the Utrata forceps.? BSS on a 26 gauge cannula was injected beneath the anterior capsule to hydrodissect as well as hydrodelineate the lens.? After ensuring mobility, phacoemulsification was performed in a rywnpow-eme-wfhqzs-type fashion.? After all nuclear material had been removed from the eye, IA was introduced and all residual cortical material was cleaned up.? Additional Amvisc Plus was injected into the posterior bag and a lens model MX60, 21.5 diopters was injected and dialed into position.? After ensuring centration, IA was reintroduced into the anterior chamber and all residual Amvisc Plus removed from the eye.? BSS on a 30 gauge cannula was injected into the stroma of both the clear corneal incision as well as paracentesis to hydrate the wounds.? Additional BSS was injected into the anterior chamber to pressurize the eye at approximately 20 to 22 mmHg by finger tension.? 0.1 cc of antibiotic was used to wash out the anterior chamber, maintaining the pressures above.? Weck-Emily sponges were used to check the wounds to be watertight.? One drop of apraclonidine and one drop of prednisolone acetate were placed into the eye and a shield was placed over top. The patient was sent to the postoperative area in satisfactory condition to follow up the following day for postoperative care. GINA
--- OUTSIDE RECORDS SUMMARY | 2024-04-15 07:28 | XMS_ITS | CCD ---
Author Organization [facility] Care Team Providers Care Ice Grinder Name Role Phone TIMBO BAIG Primary Care Physician [phone] DO Timbo Baig Primary Care Provider MD Jaylon Finnegan Attending Provider [phone] Niya Baker Unavailable Timbo Baig Unavailable JOVANNI, DR IZQUIERDO Admitting Unavailable BALL, DR IZQUIERDO Attending Unavailable JOVANNI, DR IZQUIERDO Primary Care Unavailable JOVANNI, DR IZQUIERDO Consulting [...] Unavailable LOYA ., DR MCMAHON Consulting Unavailable CASAR, DR IVY Jenkins Consulting Unavailable ANDERSON Ann Attending Provider DO Timbo Baig Primary Care Provider FREEMAN Baker Attending Provider Jaylon Finnegan Unavailable DO Timbo Baig Primary Care Provider FREEMAN [...] or physicia Propensity to adverse reactions Comment:Done SulfurCell Other (1 source) No Known Medication Allergies; Translations: [No Known Medication Allergies] Propensity to adverse reactions (disorder) [facility] Repository Medications Current Medications Medication Drug Class(es) [...] Start: 08-25-2023 take 1 capsule by mo [facility] once daily hydrochlorothiazide 12.5 mg Cap 12.5 mg = 1 cap(s), Oral, Daily, # 90 cap(s), Refills(s) 3, Pharmacy: [facility], 178, cm, 08/25/23 12:26:00 EDT, Height/Length Dosing, 90, kg, 08/25/23 12:26:00 EDT, Weight Dosing Start Date: 08/25/23 Status: Ordered Start: 12-28-2021 take 1 capsule by mo [facility] once daily hydrochlorothiazide 12.5 mg Cap 12.5 mg = 1 cap(s), Oral, Daily, # 90 cap(s), Refills(s) 3, Pharmacy: [facility], 152, cm, 08/27/21 10:12:00 EDT, Height/Length [...] 05/17/19 Status: Ordered take 1 tablet by [facility] once daily Metoprolol Succinate ER 25 MG [...] 4:28pm Start: 08-25-[address] [facility] once daily tamsulosin 0.4 mg Cap 0.4 mg = 1 cap(s), Oral, Daily, # 90 cap(s), Refills(s) 3, Pharmacy: [facility], 178, cm, 08/25/23 12:26:00 EDT, Height/Length Dosing, 90, kg, 08/25/23 12:26:00 EDT, Weight Dosing Start Date: 08/25/23 Status: Ordered take [address] [facility] every twenty-four hours Completed/Discontinued Medications Medication Drug [...] tab(s), Refills(s) 3, Pharmacy: [facility], 152, cm, 04/19/22 10:18:00 EDT, Height/Length [...] Coronary arteriosclerosis; Translations: [Atherosclerotic heart disease of craig coronary artery without angina pectoris] Onset: 09-15-2018 05-17-2019 Chronic Coronary atherosclerosis and other heart disease (1 source) Coronary atherosclerosis and other heart disease; Translations: [Atherosclerosis of craig arteries of extremities with intermittent claudication, bilateral [...] sources) H/O: high risk medication; Translations: [Other director long term care (current) drug therapy] Episodic Other aftercare (5 sources) Long-term current use of drug therapy; Translations: [Other director long term care (current) drug therapy] Episodic Other and unspecified [...] and due to atherosclerosis; Translations: [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 *Follow-up with vascular in [place] for your leg weakness and pain [facility] Office Visiton 01-15-2024 Follow-up visit [id number] Kang Brady 1940 M Date Provider Department Center 01/15/2024 TITA STEWART CARD [facility] Family History Problem Relation Age of Onset No Known Problems Mother No Known Problems Father Family Status - Relation Status Age at Mother Father Level of Service:90873 [place] OFFICE/OUTPATIENT ESTABLISHED MOD MDM 30 MIN Reason for Visit and Comments: Coronary Artery Disease [187] Congestive Heart Failure [127] Hypertension [255453] Hyperlipidemia [182] [facility] 36on 01-05-2024 36 Regarding labs from 12/26/2023: Tita Rivera, SANG Franco MA Please let him know his labs show his kidney function is stable. Continue current meds. Thanks LM on patient's VM. [facility] Estimated glomerular filtrat ion rate (GFR) non- Americanon 12-26-2023 GFR/1.73 sq M.predicted among non-blacks MDRD (S/P/Bld) [Vol rate/Area] 58 mL/min/{1.73_m2} >=60 [facility] - Chemistry and C hemistry - challengeon 12-26-2023 Calcium [Mass/Vol] 9.3 mg/dL 8.5-10.1 [facility] Chloride [Moles/Vol] 101 mmol/L 98-107 [facility] CO2 [Moles/Vol] 28.4 mmol/L 21.0-32.0 [facility] Creatinine [Mass/Vol] 1.21 mg/dL 0.70-1.30 [facility] GFR/1.73 sq M.predicted MDRD (S/P/Bld) [Vol rate/Area] mL/min/{1.73_m2} >=60 [facility] Glucose [Mass/Vol] 117 mg/dL 74-106 [facility] Potassium [Moles/Vol] 3.9 mmol/L 3.5-5.1 [facility] Sodium [Moles/Vol] 138 mmol/L 136-145 [facility] Urea nitrogen [Mass/Vol] 19.0 mg/dL 7.0-18.0 [facility] Urea nitrogen/Creatinine [Mass ratio] 15.7 mg/mg [facility] Serum or plasma anion gap de terminationon 12-26-2023 Anion gap [Moles/Vol] 12.5 mmol/L [facility] 37on 12-17-2023 37 *Start taking lasix 40mg daily along with potassium supplements. *Have labs done around 12/26/2023. *Monitor your weight daily, first thing in the morning after you use the bathroom and before you eat breakfast. *Try to not drink more than 2000ml of fluids a day *Limit sodium/salt intake Normal [facility] Office Visiton 12-17-2023 Follow-up visit [id number] Kang Brady 1940 M Date Provider Department Center 12/17/2023 TITA STEWART CARD [facility] Family History Problem Relation Age of Onset No Known Problems Mother No Known Problems Father Family Status - Relation Status Age at Mother Father Level of Service:84864 [place] OFFICE/OUTPATIENT ESTABLISHED MOD MDM 30 MIN Normal [facility] Urology Office/Clinic Noteon 10-22-2023 Urology Office/Clinic Note Chief Complaint kidney stone and BPH with urinay obstruction HPI Staff 83 yo male here for 3 month f/u with metabolic workup and KUB. Previous Dx: kidney stone, BPH with obstruction. S/p R ESWL 05/22/23. KUB done 07/21/23 at [facility]. Metabolic workup done 07/22/23. Taking HCTZ [...] [facility] [address], [place] [address]- Additional Instructions: w/KUB Patient Education Dietary Guidelines to Help Prevent Kidney Stones I, Leelee Ventura , personally scribed for Dr. Loya on 08/25/2023 13:30:29. . 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 Normal [facility] Comment on above: Result Comment: Elec tronically Signed By: REINIER HUSAIN, Puma Jaramillo\.br\Date and Time Signed: 10/22/23 13:49 EST\.br\Electronically Co-Signed By: Leelee Ventura\.br\Date and Time Co-Signed: 08/25/23 13:30 EDT US ankle/arm indiceson 09-04 US ankle/arm indices [facility] [place] [address] [place] [address] Ultrasound Report Signed Patient: Kang Brady MR#: [id number] 11 : 1940 Acct:[id number] Age/Sex: 83 / M ADM Date: 09/04/23 Loc: [facility] Room: Type: [facility] Attending Dr: Niya Baker METAL SPRAY OPERATOR-C Ordering Provider: Niya Baker APRN Date of [...] Jaylon Finnegan MD09/04/2023 1:02 PM Dictation Location: [place] [address] Tech: Pamsaima Richardsguzman Transcribed By: [facility] 09/04/23 1302 Dictated By: Jaylon Finnegan MD 09/04/23 1301 Signed By: 09/04/23 1302 [facility] Patient Educationon 08-25-20 Patient Education Nephrology Dietary [...] Spinach (cooked), rhubarb, beets, sweet potatoes, and Turkmen chard. ? Peanuts. ? Potato chips, citizen [place] fries, and baked potatoes with skin on. ? Nuts and nut products. ? Chocolate. ? If you regularly take a diuretic medicine, make sure to eat at least 1 or 2 servings of fruits or vegetables that are high in potassium each day. These include: ? Avocado. ? Banana. ? Ong, prune, carrot, or tomato juice. ? Baked [...] fish oil, or vitamin B6. ? Take zxjc-gmz-evlaqut and prescription medicines only as told by your health care provider. These include supplements. What foods should I limit? Limit your in (more content not included)... [facility] Lab Reportson 07-29-2023 Lab Reports [id number] 5#1.00CD:127 [facility] Lab Reportson 07-28-2023 Lab Reports [id number] 4#1.00CD:127 [facility] Lab Reportson 07-24-2023 Lab Reports [id number] 8#1.00CD:127 [facility] Lab Reportson 07-23-2023 Lab Reports [id number] C3#1.00CD:127 [facility] Lab Reports [id number] BB#1.00CD:127 [facility] RAD - MISCon 07-22-2023 RAD - MISC [id number] 7#1.00CD:127 [facility] Formson 2023 Forms [id number] A9#1.00CD:127 [facility] RAD - MISCon 05-23-2023 RAD - MISC [id number] B3#1.00CD:127 Normal [facility] Operative Reporton Operative Report [id number] F8#1.00CD:127 [facility] Lab Reportson 05-19-2023 Lab Reports [id number] 7F#1.00CD:127 [facility] Lab Reports [id number] 869#1.00CD:127 [facility] RAD - MISCon 05-19-2023 RAD - MISC [id number] 42#1.00CD:127 [facility] Consent for Procedure/Surger yon 05-05-2023 Consent for Procedure/Surgery [id number] 3E#1.00CD:127 [facility] Formson 05-05-2023 Forms [id number] 1#1.00CD:127 [facility] US carotid doppler BIon 04-11 US carotid doppler BI [facility] [place] [address] Ultrasound Report Signed Patient: Kang Brady MR#: [id number] 11 : 1940 Acct:[id number] Age/Sex: 82 / M ADM Date: 05/01/23 Loc: [facility] Room: Type: [facility] Attending Dr: Niya Baker METAL SPRAY OPERATOR-C Ordering Provider: Niya Baker APRN Date of [...] Ricky Stephens M.D.05/02/2023 10:21 AM Dictation Location: [place] [address] Tech: Pam Sheehan Transcribed By: DANIEL 05/02/23 1021 Dictated By: Ricky Stephens MD 05/02/23 1019 Signed By: 05/02/23 1021 Normal [facility] RAD - MISCon 04-25-2023 RAD - MIS [id number] 1D#1.00CD:127 Normal [facility] Ambulatory Visit Summaryon 0 04-21-2023 Ambulatory Visit Summary KANG BRADY :1940 Visit Date:04/21/2023 Ambulatory Visit Instructions Your Diagnosis Kidney stone BPH with urinary obstruction Tests Performed Urnls Dip Stick Auto w/o Microscopy POC 73345 XR Abdomen 1 View -- Results Pending [...] Puma LOYA MD Where: [facility] Jose David Branch [facility] Patient Educationon 04-21-20 Patient Education Nephrology Dietary [...] Spinach (cooked), rhubarb, beets, sweet potatoes, and Turk[place] chard. ? Peanuts. ? Potato chips, citizen of [place] fries, and baked potatoes with skin on. ? Nuts and nut products. ? Chocolate. ? If you regularly take a diuretic medicine, make sure to eat at least 1 or 2 servings of fruits or vegetables that are high in potassium each day. These include: ? Avocado. ? Banana. ? Ong, prune, carrot, or tomato juice. ? Baked [...] fish oil, or vitamin B6. ? Take qugc-ixn-aaucajb and prescription medicines only as told by your health care provider. These include supplements. What foods should I limit? Limit your in (more content not included)... Normal [facility] Urology Office/Clinic Noteon 04-21-2023 Urology Office/Clinic Note [...] [facility] [address], [place] [address]- Additional Instructions: 1 yr KUB pending image [...] Vitamin+ Plavi (more content not included)... Normal [facility] Comment on above: Result Comment: Elec tronically Signed By: Puma LOYA MD\.br\Date and Time Signed: 04/21/23 10:29 EDT\.br\Electronically Co-Signed By: Pastora Ding\.br\Date and Time Co-Signed: 04/21/23 10:26 EDT Laboratory - Microbiology an d Antimicrobial susceptibilityOrdered By: Aury Ann on 04-12-2023 S. pyogenes Ag IA Ql (Unsp spec) [facility] No Panel InformationOrdered By: Aury Ann on 04-12-2023 Flu B [facility] CBC AUTO DIFFon 09-25-2022 BASO # 0.0 103/ul Normal 0.0-0.1 [facility] Comment on above: Performed By: #### C BC #### [facility] [address] [place] [address] Dr. Giacomo Mace Basophils/100 WBC (Bld) 0.5 % Normal 0.2-2.0 [facility] Comment on above: Performed By: #### C BC #### [facility] [address] [place] [address] Dr. Giacomo Mace EO # 0.4 103/ul Normal 0.0-0.7 [facility] Comment on above: Performed By: #### C BC #### [facility] [address] [place] [address] Dr. Giacomo Mace Eosinophils/100 WBC (Bld) 7.0 % Normal 0.9-7.0 [facility] Comment on above: Performed By: #### C BC #### [facility] [address] [place] [address] Dr. Giacomo Mace Erythrocyte distribution width (RBC) [Ratio] 14.6 % Normal 11.0-15.0 [facility] Comment on above: Performed By: #### C BC #### [facility] [address] [place] [address] Dr. Giacomo Mace Hematocrit (Bld) [Volume fraction] 46.9 % Normal 42.0-54.0 [facility] Comment on above: Performed By: #### C BC #### [facility] [address] [place] [address] Dr. Giacomo Mace Hemoglobin (Bld) [Mass/Vol] 15.1 g/dL Normal 14.0-18.0 [facility] Comment on above: Performed By: #### C BC #### [facility] [address] [place] [address] Dr. Giacomo Mace IG # 0.02 10e3/ul Normal 0.00-0.03 [facility] Comment on above: Performed By: #### C BC #### [facility] [address] [place] [address] Dr. Giacomo Mace IG % 0.4 % Normal 0.0-0.5 [facility] Comment on above: Performed By: #### C BC #### [facility] [address] [place] [address] Dr. Giacomo Mace LYMPH # 1.4 103/ul Normal 1.2-3.8 [facility] Comment on above: Performed By: #### C BC #### [facility] [address] [place] [address] Dr. Giacomo Mace Lymphocytes/100 WBC (Bld) 25.3 % Normal 20.5-60.0 [facility] Comment on above: Performed By: #### C BC #### [facility] [address] [place] [address] Dr. Giacomo Mace MANUAL DIFF REQ NO Normal [facility] Comment on above: Performed By: #### C BC #### [facility] [address] [place] [address] Dr. Giacomo Mace MCH (RBC) [Entitic mass] 29.6 pg Normal 25.9-34.0 [facility] Comment on above: Performed By: #### C BC #### [facility] [address] [place] [address] Dr. Giacomo Mace MCHC (RBC) [Mass/Vol] 32.2 g/dL Normal 29.9-35.2 [facility] Comment on above: Performed By: #### C BC #### [facility] [address] [place] [address] Dr. Giacomo Mace MCV (RBC) [Entitic vol] 92.0 fL Normal 80.0-94.0 [facility] Comment on above: Performed By: #### C BC #### [facility] [address] [place] [address] Dr. Giacomo Mace MONO # 0.6 103/ul Normal 0.3-0.8 [facility] Comment on above: Performed By: #### C BC #### [facility] [address] [place] [address] [address] Giacomo Mace Monocytes/100 WBC (Bld) 10.4 % Normal 1.7-12.0 [facility] Comment on above: Performed By: #### C BC #### [facility] [address] [place] [address] Dr. Giacomo Mace NEUT # 3.2 103/ul Normal 1.4-6.5 [facility] Comment on above: Performed By: #### C BC #### [facility] [address] [place] [address] Dr. Giacomo Mace Neutrophils/100 WBC (Bld) 56.4 % Normal 43.0-75.0 [facility] Comment on above: Performed By: #### C BC #### [facility] [address] [place] [address] Dr. Giacomo Mace Platelet mean volume (Bld) [Entitic vol] 10.5 fL Normal 9.5-13.5 [facility] Comment on above: Performed By: #### C BC #### [facility] [address] [place] [address] Dr. Giacomo Mace PLT 227 103/ul Normal 150-450 [facility] Comment on above: Performed By: #### C BC #### [facility] [address] [place] [address] Dr. Giacomo Mace RBC 5.10 106/ul Normal 4.70-6.10 [facility] Comment on above: Performed By: #### C BC #### [facility] [address] [place] [address] Dr. Giacomo Mace WBC 5.7 103/ul Normal 4.0-11.0 [facility] Comment on above: Performed By: #### C BC #### [facility] [address] [place] [address] [address] Giacomo Mace LIPID PROFILEon 09-25-2022 CHOL-HDL RATIO NORM SEE BELOW Normal [facility] Comment on above: Result Comment: 3.3 - 4.4 LOW RISK 4.4 - 7.1 AVERAGE RISK 7.1 - 11.0 MODERATE RISK >11.0 HIGH RISK Performed By: #### B MP, LIPID #### [facility] [address] [place] [address] [address] Giacomo Mace Cholesterol [Mass/Vol] 219 mg/dL Critically high <=200 [facility] Comment on above: Performed By: #### B MP, LIPID #### [facility] [address] [place] [address] [address] Giacomo Mace Cholesterol in HDL [Mass/Vol] 61 mg/dL Critically high 40-60 [facility] Comment on above: Performed By: #### B MP, LIPID #### [facility] [address] [place] [address] [address] Giacomo Mace Cholesterol in LDL [Mass/Vol] 136.4 mg/dL Normal [facility] Comment on above: Performed By: #### B MP, LIPID #### [facility] [address] [place] [address] [address] Giacomo Mace Cholesterol.total/Cholest jose elias in HDL [Mass ratio] 3.6 {ratio} Normal [facility] Comment on above: Performed By: #### B MP, LIPID #### [facility] [address] [place] [address] [address] Giacomo Mace HDL NORMAL > or = 60 mg/dl - LOW CARDIOVASCULAR RISK <40 mg/dl - HIGH CARDIOVASCULAR RISK Normal [facility] Comment on above: Performed By: #### B MP, LIPID #### [facility] [address] [place] [address] [address] Giacomo Mace LDL CALC NORMAL SEE BELOW Normal [facility] Comment on above: Result Comment: <100 mg/dl OPTIMAL 100 - 129 mg/dl NEAR OR ABOVE OPTIMAL 130 - 159 mg/dl BORDERLINE HIGH 160 - 189 mg/dl HIGH >190 mg/dl VERY HIGH Performed By: #### B MP, LIPID #### [facility] [address] [place] [address] [address] Giacomo Mace Triglyceride [Mass/Vol] 108 mg/dL Normal <=150 [facility] Comment on above: Performed By: #### B MP, LIPID #### [facility] [address] [place] [address] Dr. Giacomo Mace VLDL CALC 21.6 mg/dL Normal [facility] Comment on above: Performed By: #### B MP, LIPID #### [facility] [address] [place] [address] Dr. Giacomo Mace PROF CHEM 8 (BAS METB)on Anion gap [Moles/Vol] 9.6 mmol/L Normal [facility] Comment on above: Performed By: #### B MP, LIPID #### [facility] [address] [place] [address] Dr. Giacomo Mace Calcium [Mass/Vol] 9.3 mg/dL Normal 8.5-10.1 [facility] Comment on above: Performed By: #### B MP, LIPID #### [facility] [address] [place] [address] Dr. Giacomo Mace Chloride [Moles/Vol] 104 mmol/L Normal 98-107 [facility] Comment on above: Performed By: #### B MP, LIPID #### [facility] [address] [place] [address] Dr. Giacomo Mace CO2 [Moles/Vol] 27.8 mmol/L Normal 21.0-32.0 [facility] Comment on above: Performed By: #### B MP, LIPID #### [facility] [address] [place] [address] Dr. Giacomo Mace Creatinine [Mass/Vol] 1.08 mg/dL Normal 0.70-1.30 [facility] Comment on above: Performed By: #### B MP, LIPID #### [facility] [address] [place] [address] Dr. Giacomo Mace EGFR-AF NORTHER[place] IRISH >60 Normal >=60 [facility] Comment on above: Performed By: #### B MP, LIPID #### [facility] [address] [place] [address] [address] Giacomo Mace EGFR-NON AF [place]THER[place]ISH >60 Normal >=60 [facility] Comment on above: Performed By: #### B MP, LIPID #### [facility] [address] [place] [address] [address] Giacomo Mace Glucose [Mass/Vol] 111 mg/dL Critically high 74-106 [facility] Comment on above: Performed By: #### B MP, LIPID #### [facility] [address] [place] [address] [address] Giacomo Mace Potassium [Moles/Vol] 4.4 mmol/L Normal 3.5-5.1 [facility] Comment on above: Performed By: #### B MP, LIPID #### [facility] [address] [place] [address] [address] Giacomo Mace Sodium [Moles/Vol] 137 mmol/L Normal 136-145 [facility] Comment on above: Performed By: #### B MP, LIPID #### [facility] [address] [place] [address] [address] Giacomo Mace Urea nitrogen [Mass/Vol] 27.0 mg/dL Critically high 7.0-18 .0 [facility] Comment on above: Performed By: #### B MP, LIPID #### [facility] [address] [place] [address] [address] Giacomo Mace Urea nitrogen/Creatinine [Mass ratio] 25.0 mg/mg Normal [facility] Comment on above: Performed By: #### B MP, LIPID #### [facility] [address] [place] [address] [address] Giacomo Mace ECHOCARDIO M/2D COMPLETEon 0 07-09-2022 ECHOCARDIO M/2D COMPLETE Patient: KANG BRADY Exam Date: 07/09/2022 : 1940 Gender:M Ordering : TITA RIVERA [facility] Admission #: [id number] Family : DR TIMBO BAIG D.O. Order #: [id number] CLICK HERE TO VIEW EXAM ECHOCARDIOGRAM REPORT [...] Davis M.D. on 07/10/2022 at 14:46 Normal [facility] CPKon 04-27-2022 CK [Catalytic activity/Vol] 96 U/L Normal 39-308 [facility] Comment on above: Performed By: #### C RP, CK #### [facility] [address] [place] [address] Dr. Giacomo Mace CRPon 04-27-2022 CRP [Mass/Vol] mg/L Normal <=1.0 [facility] Comment on above: Performed By: #### C RP, CK #### [facility] [address] [place] [address] Dr. Giacomo Mace ELECTROLYTESon 04-18-2022 Anion gap [Moles/Vol] 11.8 mmol/L [facility] Comment on above: Performed By: #### E LEC #### [facility] [address] [place] [address] Dr. Giacomo Mace Chloride [Moles/Vol] 104 mmol/L Normal 98-107 [facility] Comment on above: Performed By: #### E LEC #### [facility] [address] [place] [address] Dr. Giacomo Mace CO2 [Moles/Vol] 27.5 mmol/L Normal 21.0-32.0 [facility] Comment on above: Performed By: #### E LEC #### [facility] [address] [place] [address] Dr. Giacomo Mace Potassium [Moles/Vol] 4.3 mmol/L Normal 3.5-5.1 [facility] Comment on above: Performed By: #### E LEC #### [facility] [address] [place] [address] Dr. Giacomo Mace Sodium [Moles/Vol] 139 mmol/L Normal 136-145 [facility] Comment on above: Performed By: #### E LEC #### [facility] [address] [place] [address] Dr. Giacomo Mace XR KUB 1 VIEWon [...] by: IVY DOMINGUEZ Date: 2022-04-18 08:04 Normal [facility] Vital Signs Date Time Vital Sign Value Performing Clinician Facility 03-15-2024 11:40-0400 Body height 177.8 cm [facility] 03-15-2024 11:40-0400 Body mass index (BMI) [Ratio] 29 kg/m2 [facility] 03-15-2024 11:40-0400 Body weight 91.73 kg [facility] 03-15-2024 11:40-0400 Diastolic blood pressure 76 mm[Hg] [facility] 03-15-2024 11:40-0400 Heart rate 66 /min [facility] 03-15-2024 11:40-0400 Respiratory rate 12 /min [facility] 03-15-2024 11:40-0400 Systolic blood pressure 129 mm[Hg] [facility] 01-08-2024 14:10-0500 Body height 177.8 cm [facility] 01-08-2024 14:10-0500 Body mass index (BMI) [Ratio] 28.8 kg/m2 [facility] 01-08-2024 14:10-0500 Body weight 90.94 kg [facility] 11-21-2023 10:30-0500 Body height 177.8 cm [employer] Other [facility] [employer] Other 11-21-2023 10:30-0500 Body mass index (BMI) [Ratio] 29.12 kg/m2 [employer] Other [employer] Other 11-21-2023 10:30-0500 Body weight 92.08 kg Timbo Ball Other [facility] Other 11-21-2023 10:30-0500 Diastolic blood pressure 66 mm[Hg] Timbo Ball Other [employer] Other 11-21-2023 10:30-0500 Respiratory rate 12 /min Timbo Ball Other [employer] Other 11-21-2023 10:30-0500 Systolic blood pressure 103 mm[Hg] Timbo Ball Other [employer] Other 09-24-2023 11:00-0500 Body height 177.8 cm Timbo Ball Other [employer] Other 09-24-2023 11:00-0500 Body mass index (BMI) [Ratio] 28.69 kg/m2 Timbo Ball Other [employer] Other 09-24-2023 11:00-0500 Body weight 90.72 kg Timbo Ball Other [employer] Other 09-24-2023 11:00-0500 Diastolic blood pressure 73 mm[Hg] Timbo Ball Other [employer] Other 09-24-2023 11:00-0500 Respiratory rate 12 /min Timbo Ball Other [employer] Other 09-24-2023 11:00-0500 Systolic blood pressure 134 mm[Hg] Timbo Ball Other [employer] Other 08-25-2023 12:21-0400 Blood Pressure Location Puma LOYA [facility] 08-25-2023 12:21-0400 Diastolic blood pressure 82 mm[Hg] Puma LOYA [facility] 08-25-2023 12:21-0400 Heart rate 80 /min Pumaaleksandr LOYA [facility] 08-25-2023 12:21-0400 Respiratory rate 16 /min Puma LOYA [facility] 08-25-2023 12:21-0400 Systolic blood pressure 137 mm[Hg] Puma LOYA [facility] 04-12-2023 09:16-0400 Body temperature 97 [degF] PA Aury Shehorn Work Phone: [facility] 04-12-2023 09:16-0400 Body weight 88.45 kg PA Aury Shehorn Work Phone: [facility] 04-12-2023 09:16-0400 Diastolic blood pressure 62 mm[Hg] PA Aury Shehorn Work Phone: [facility] 04-12-2023 09:16-0400 Heart rate 80 /min PA Aury Shehorn Work Phone: [facility] 04-12-2023 09:16-0400 SaO2% (BldA) [Mass fraction] 96 % PA Aury Shehorn Work Phone: [facility] 04-12-2023 09:16-0400 Systolic blood pressure 123 mm[Hg] PA Aury Shehorn Work Phone: [facility] 03-24-2023 12:00-0400 Body height 177.8 cm Timbo Ball Other [employer] Other 03-24-2023 12:00-0400 Body mass index (BMI) [Ratio] 28.44 kg/m2 Timbo Ball Other [employer] Other 03-24-2023 12:00-0400 Body weight 89.9 kg Timbo Ball Other [employer] Other 03-24-2023 12:00-0400 Diastolic blood pressure 67 mm[Hg] Timbo Ball Other [employer] Other 03-24-2023 12:00-0400 Respiratory rate 12 /min Timbo Ball Other [employer] Other 03-24-2023 12:00-0400 Systolic blood pressure 123 mm[Hg] Timbo Ball Other [employer] Other 04-29-2022 14:30-0400 Body height 177.8 cm Niya Rutjorge Other [employer] Other 04-29-2022 14:30-0400 Body mass index (BMI) [Ratio] 28.69 kg/m2 Niya Rutjorge Other [employer] Other 04-29-2022 14:30-0400 Body temperature 96.3 [degF] Niya Samuel Other [employer] Other 04-29-2022 14:30-0400 Body weight 90.72 kg Niya Chowjorge Other [employer] Other 04-29-2022 14:30-0400 Diastolic blood pressure 80 mm[Hg] Niya Baker Other [employer] Other 04-29-2022 14:30-0400 SaO2% (BldA) [Mass fraction] 98 % Niya aBker Other [facility] [employer] Other 04-29-2022 14:30-0400 Systolic blood pressure 120 mm[Hg] Niya Baker Other [facility] [employer] Other 04-19-2022 10:04-0400 Blood Pressure Location Puma LOYA [facility] 04-19-2022 10:04-0400 Diastolic blood pressure 84 mm[Hg] Puma LOYA [facility] 04-19-2022 10:04-0400 Heart rate 67 /min Puma LOYA [facility] 04-19-2022 10:04-0400 Respiratory rate 16 /min Puma LOYA [facility] 04-19-2022 10:04-0400 Systolic blood pressure 143 mm[Hg] Puma LOYA [facility] Encounters Encounter Date Encounter Type Care Provider Facility Start: 03-15-2024 End: 03-15-2024 ambulatory [facility] Work Phone: Start: 03-15-2024 End: 03-15-2024 Patient encounter procedure [facility] Work Phone: Start: 02-11-2024 End: 02-11-2024 ambulatory NAVNEET BLANC Not Available Start: 01-15-2024 End: 01-15-2024 ambulatory [facility] Start: 01-08-2024 End: 01-08-2024 Patient encounter procedure [facility] Neurosurgery Work Phone: Start: 12-26-2023 Non-patient / Non-visit [facility] Work Phone: Start: 12-17-2023 End: 12-17-2023 ambulatory TITA [facility] Start: 11-21-2023 End: 11-21-2023 ambulatory Timbo Baig Other [employer] Other Start: 11-21-2023 Office outpatient vi sit 15 minutes Timbo Baig [facility] Start: 10-08-2023 End: 10-08-2023 ambulatory Timbo Jovanni Other [employer] Other Start: 10-08-2023 Telephone encounter Timbo Baig [facility] Start: 09-24-2023 End: 09-24-2023 ambulatory Timbo Jovanni Other [employer] Other Start: 09-24-2023 Office outpatient vi sit 25 minutes Timbo Baig [facility] Start: 09-04-2023 Office outpatient vi sit 15 minutes Jaylon Finnegan [facility] Vascular Surgery Start: 09-04-2023 End: 09-04-2023 ambulatory DO Timbo Baig Work Phone: [employer] Other Start: 09-04-2023 End: 09-04-2023 Patient encounter procedure DO Timbo Jovanni Work Phone: [facility] V[facility] Start: 08-25-2023 End: 08-26-2023 ambulatory Puma LOYA Facility: [place] Start: 08-25-2023 End: 08-25-2023 Patient encounter procedure Puma LOYA [facility] Jose David Start: 2023 End: 2023 ambulatory Niya Baker Other [facility] [employer] Other Start: 2023 Telephone encounter Niya Samuel [facility] Start: 05-22-2023 End: 05-23-2023 ambulatory Puma Clint REINIER [facility] [employer] Other Start: 05-22-2023 Telephone encounter Niya Samuel [facility] Start: 05-01-2023 End: 05-01-2023 ambulatory Niya R Courtneyconstance Facility:[facility] Start: 05-01-2023 End: 05-01-2023 ambulatory DO Timbo Baig Work Phone: [facility] Work Phone: Start: 05-01-2023 End: 05-01-2023 Patient encounter procedure DO Timbo Baig Work Phone: [facility] Start: 04-21-2023 End: 04-22-2023 ambulatory Puma Clint LOYA Facility:[facility] Start: 04-12-2023 End: 04-12-2023 ambulatory PA Aury Shehorn Work Phone: [facility] Work Phone: Start: 04-12-2023 End: 04-12-2023 Patient encounter procedure PA Aury Shehorn Work Phone: [facility] Work Phone: Start: 04-02-[address] TIMBO BAIG Facili ty:[facility] Start: 03-24-2023 End: 03-24-2023 ambulatory Timbo Baig Other [facility] [employer] Other Start: 03-24-2023 Patient encounter procedure Timbo Baig [facility] Start: 09-25-2022 End: 09-26-[address] TIMBO BAIG Facility:[facility] Start: 07-09-2022 End: 07-10-2022 ambulatory TITA RIVERA Facility:[facility] Start: 04-29-2022 End: 04-29-2022 ambulatory Niya Baker Other [employer] Other Start: 04-29-2022 Follow-up encounter Niya Barber [facility] Start: 04-29-2022 End: 04-29-2022 Patient encounter procedure DO Timbo Jovanni Work Phone: [facility] Start: 04-27-2022 End: 04-28-[address] TIMBO BAIG Facility:[facility] Start: 04-19-2022 End: 04-19-2022 Patient encounter procedure Puma LOYA [facility] Start: 04-18-2022 End: 04-19-[address] PUMA LOYA . Facility:[facility] Start: 03-13-2022 Adult health examination Jaylon Finnegan Other [facility] [employer] Other Procedures Date Procedure Procedure Detail Performing [...] Activity Detail Author Start: 08-30-2024 ambulatory Ambulatory Facility:[facility] Start: 01-08-2024 Patient referral [facility] Work Phone: Start: 05-01-2023 Doppler ultrasonography of bilateral carotid arteries US carotid doppler [facility] Start: 05-01-2023 US.doppler Carotid arteries - bilateral [facility] Start: 04-29-2022 Doppler ultrasonography of bilateral carotid arteries US carotid doppler [facility] Comprehensive metabo lic 2000 panel - Serum or Plasma [facility] Patient Education Viral Syndrome (AC) [facility] [employer] [place] Work Phone: Patient referral [facility] Work Phone: XR Lumbar spine 4 Views [facility] Immunizations Immunization Date Immunization Notes Care Provider Fa cility 08-04-2022 COVID-19 Pfizer (bivalent) Timbo Baig Other [facility] 08-04-2022 influenza virus vaccine, unspecified formulation Puma LOYA [facility] 08-04-2022 influenza, high dose seasonal, preservative-free Timbo Baig Other [employer] Other 02-21-2022 COVID-19 Pfizer Timbo velasco Other [facility] 02-21-2022 SARS-CoV-2 mRNA (onywhnpfvgg-sjly-fueuo se) vaccine Puma LOYA [facility] 09-06-2021 zoster vaccine recombinant Timbo Baig Other [facility] 08-10-2021 influenza virus vaccine, unspecified formulation Puma LOYA [facility] 08-07-2021 COVID-19 Vaccine Pfi zer - Documentation Purposes Only Timbo Baig Other [facility] Comment on above: Result Comment: 2022: [id number] 07-19-2021 influenza virus vaccine, unspecified formulation Puma LOYA [facility] 05-16-2021 zoster vaccine recombinant Timbo Baig Other [facility] 01-09-2021 COVID-19 Vaccine Pfi zer - Documentation Purposes Only Timbo Baig Other [facility] Comment on above: Result Comment: 2022: [id number] 12-19-2020 COVID-19 Vaccine Pfi zer - Documentation Purposes Only Timbo Baig Other [facility] Comment on above: Result Comment: 2022: [id number] 07-31-2020 influenza virus vaccine, unspecified formulation Puma LOYA [facility] 08-20-2019 influenza virus vaccine, split virus (incl. purified surface antigen) Jaylon Finnegan Other [facility] Other 08-20-2019 influenza virus vaccine, unspecified formulation [facility] 08-10-2019 influenza virus vaccine, unspecified formulation Puam LOYA [facility] 02-19-2019 pneumococcal polysaccharide vaccine, 23 valent Timbo Baig Other [facility] 09-21-2018 influenza virus vaccine, unspecified formulation Puma Radcom [facility] 08-19-2018 influenza virus vaccine, split virus (incl. purified surface antigen) Jaylon Finnegan Other [employer] Other 08-19-2018 influenza virus vaccine, unspecified formulation [facility] 02-16-2018 pneumococcal conjuga te vaccine, 13 valent Timbo Baig Other [facility] 09-02-2017 influenza virus vaccine, unspecified formulation Puma Rad[employer] [facility] 08-28-2016 influenza virus vaccine, unspecified formulation Puma LOYA [facility] 08-22-2015 influenza virus vaccine, unspecified formulation Puma LOYA [facility] 08-19-2013 influenza virus vaccine, unspecified formulation Puma LOYA [facility] Payers Date Payer Category Payer Self-pay [id number] 1957 Medicare [id number] 1959 Private Health Insurance [id number] 1942 Unknown [id number] 3 1942 Unknown [id number] 3 1942 Unknown [id number] 3 1942 Unknown [id number] 3 1942 Unknown [id number] 3 1942 Unknown [id number] [id number] 7 1942 Unknown [id number] [id number] 7 1942 Unknown [id number] [id number] 7 1942 Unknown [id number] [id number] 7 1942 Unknown [id number] 61 Medicare MEDICARE PARTS A & B [id number] Unknown [id number] 1 Unknown [id number] 1 Social History Date Type Detail Facility Start: 08-27-2021 End: 04-21-2023 Tobacco smoking status Ex-smoker (finding) [facility] Sex Assigned At Male [facility] Start: 1940 Sex Assigned At Male F [facility] Start: 04-12-2023 Alone [facility] Start: 04-12-2023 0 [facility] Start: 03-12-2024 Tobacco smoking stat us FLIS Never smoked tobacco (finding) [facility] Functional Status Date Assessment Result Facility 08-25-2023 Functional Status N/A [facility] Clinical Notes 04-19-2022 to 01-15-2024 Note Date [...] All other systems reviewed and are negative. [facility] 01-15-2024 Note Cardiovascular Medic ine [facility] SUBJECTIVE Chief Complaint Patient presents with Coronary Artery Disease Congestive Heart Failure Hypertension Hyperlipidemia Kang Brady is a 83 y.o. male here for follow-up. HPI PMHx: AVR 2014, CAD s/p CABG x1 2015, HTN, carotid stent by vascular surgeon in [place] (Dr. Cedillo) 01/15/2024 He notes that his [...] Mild mitral va (more content not included)... [facility] 12-17-2023 Note Patient here for 1 [...] All other systems reviewed and are negative. [facility] 12-17-2023 Note Cardiovascular Medic ine [facility] SUBJECTIVE No chief complaint on file. Kang Brady is a 83 y.o. male here for follow-up. HPI PMHx: AVR 2014, CAD s/p CABG x1 2015, HTN, carotid stent by vascular surgeon in [place] (Dr. Cedillo) He works out a few [...] valve disease Hypertension PVD (peripheral vascular disease) ([facility]) Sleep apnea Family History Problem Relation Name [...] aortic stenosis by invasive hemodynamic study. 2. Iltreslx-mk-qujpby two-vessel coronary artery disease involving the left anterior descending and left circumflex coronary arteries. 3. Normal right-sided heart pressures and wedge pressure. 4. Normal cardiac output/cardiac index. 5. 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 (more content not included)... [facility] 11-21-2023 Evaluation note Encounter Date Diagnosis [...] a couple years. - previously referred to [facility] Neurosurgery but declined treatment [...] and feet daily for blisters and ulcerations. [facility] Other 11-15-2023 Evaluation note* Encounter Date Diagnosis [...] w/ serial Echocardiogram Control BP and HR [facility] Other 10-26-2023 Evaluation note* Encounter Date Diagnosis [...] pain which seems to be bothering him. [facility] Other 10-16-2023 Hospital Discharge instructions Patient Education [...] include: ?8 oz (237 mL) of milk, htyzidf-tdrgijtxvrql-dfnkj milk, and calcium- fortifiedfruit juice. Calcium-fortified means [...] ?Spinach (cooked), rhubarb, beets, sweet potatoes, and Turkmen chard. ?Peanuts. ?Potato chips, citizen of [place] fries, and baked potatoes with skin on. ?Nuts and nut products. ?Chocolate. If you regularly take a diuretic medicine, make sure to eat at least 1 or 2 servings of fruits or vegetables that are high in potassium each day. These include: ?Avocado. ?Banana. ?Ong, prune, carrot, or tomato juice. ?Baked potato. [...] magnesium, fish oil, or vitamin B6. Take hurf-xyc-ieitcio and prescription medicines only as told by [...] Casseroles. Pizza. Lasagna. Frozen meals. Potato chips. Cymro fries. The items listed above may not [...] provider. Document Revised: 07/08/2022 Document Reviewed: 07/08/2022 [employer] Patient Education 2022 [employer]. Follow Up Care 05/30/2023 13:07:47 With:REINIER HUSAIN, Puma Jaramillo, URL Address: [facility] [address], [place] [address]- When:Within 1 Year(s) Comments:w/MELQUIADES [facility] Jose David 05-15-2023 Evaluation note* Encounter [...] High risk medication use (ICD-10 - Z79.899) [facility] Other 06-20-2022 Evaluation note* Encounter Date Diagnosis [...] agrees with this plan, denies any questions. [facility] Other 06-10-2022 Hospital Discharge instructions Patient Education 04/19/2022 10:54:30 Kidney Stones, Kiyh-ok-Zkfi Kidney Stones Kidney stones are rock-like masses [...] Follow these instructions at home: Medicines Take hanw-cxw-vyxmbql and prescription medicines only as told by [...] 04/14/2009 Document Revised: 03/14/2020 Document Reviewed: 03/14/2020 [employer] Patient Education 2020 [employer]. Follow Up Care 08/27/2021 10:53:23 With:REINIER HUSAIN, Puma Jaramillo, URL Address: [facility] [address], [place] [address]- [phone] When:04/19/2023 [facility] evaluation + Plan note Future Appointments Appointment Date:04/21/2023 09:45:00 AM Scheduled Provider:Puma LOYA MD Location:[facility] Appointment Type:URO Office Visit [facility] evaluation + Plan note Future Appointments Appointment Date:08/30/2024 10:30:00 AM Scheduled Provider:Puma LOYA MD Location:[facility] Appointment Type:URO Office Visit [facility] evaluation noteNo assessment information available [facility] Work Phone: Evaluation note* Diagnosis Onset Date Resolution Status Viral URI acute [facility] Work Phone: Evaluation noteNo [employer] Other Evaluation note* Diagnosis Onset Date Resolution [...] acute Medicare annual wellness visit, subsequent noneactive [facility] Work Phone: Hisyzys general Narrative - Reported* Type Description Date Medical History carotid stenosis Medical History HTN Surgical History heart valve replaced 2013 Surgical History left internal carotid angioplas ty and stent 2011 [facility] Other Hisckxe general Narrative - Reported* Type Description Date [...] RIGHT 2020 Hospitalization History SEE SURGICAL HX [facility] Other Hispivz general Narrative - Reported* Type Description Date [...] kidney 05/2023 Hospitalization History SEE SURGICAL HX [facility] Other Hospital course Narrative No data available for this section [facility] progress note No data available for this section [facility] reason for referral (narrative)* Reason Referral for lumbar foraminal stenosis and left lower extremity weakness. 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 372) Referral Organization [facility] Referring Provider First Name Timbo Referring Provider Last Name Jovanni Referring Provider Specialty Internal Me dicine Referred Organization [facility] Referred Provider Boby Mai [address]erred Address [address] [place], [place],[address] Referred Provider Specialty Neurological Surgery Referral Priority [...] Notes Include recent and p revious MRI [facility] [employer] Other Chief Complaint and Reason for Visit [...] face for AFO brace- fax note to [phone] (unrecognized sect ion and content) No Status Records FoundNo Status Records FoundNo Status Records FoundNo Status Records FoundNo Status Records Found INFORMATION SOURCE (unrecogn ized section and content) DATE CREATED AUTHOR 03/25/2023 [facility] DATE CREATED AUTHOR AUTHOR'S ORGANIZ ATION 09/14/2023 [facility] DATE CREATED AUTHOR AUTHOR'S ORGANIZ ATION 10/24/2023 [facility] DATE CREATED AUTHOR AUTHOR'S ORGANIZ ATION 01/16/[address] [facility] DATE CREATED AUTHOR AUTHOR'S ORGANIZ ATION 02/12/2024 [facility] dical Specialists EPIC FOR RECORDS PERTAINING [...] BE BASED ON THE PRIMARY CLINICAL RECORDS. [employer] provides no warranty or guarantee of the accuracy or completeness of information in this document.
[2024-04-15 07:35] VITALS: BP 103/66; PULSE 75; O2SAT 94; BMI 28.8
[2024-04-15] MEDS: BESIFLOXACIN HCL 100 DROP DROPS.SUSP OP ×4 (07:44→08:12)
[2024-04-15] MEDS: CYCLOPENTOLATE HCL 1% OP SOL 40 DROP/2 ML BOTTLE OP ×4 (07:45→08:13)
[2024-04-15] MEDS: TROPICAMIDE 1% OP SOL 300 DROP/15 ML BOTTLE OP ×4 (07:45→08:13)
[2024-04-15] MEDS: PHENYLEPHRINE HCL 2.5% OP SOL 40 DROP/2 ML BOTTLE OP ×4 (07:46→08:13)
[2024-04-15] MEDS: DIAZEPAM 5 MG TABLET PO (07:46)
[2024-04-15 08:59] VITALS: BP 127/72; PULSE 72; O2SAT 92
[2024-04-15] MEDS: APRACLONIDINE HCL 0.5% SOL 100 DROP/5 ML BOTTLE OP (09:03)
[2024-04-15] MEDS: HYALURONATE SODIUM 16 MG/ML SYRINGE OP (09:03)
[2024-04-15] MEDS: LIDOCAINE HCL 1% PF 20 MG/2 ML VIAL INJ (09:03)
[2024-04-15] MEDS: LIDOCAINE 2% JELLY 10 ML TOPICAL (09:03)
[2024-04-15] MEDS: BETADINE POVIDONE-IODINE 5% OP SOL 30 ML BOTTLE OP (09:04)
[2024-04-15] MEDS: TETRACAINE HCL 0.5% OP SOL 80 DROP/4 ML BOTTLE OP (09:04)
[2024-04-15] MEDS: PHENYLEPHRINE/KETOROLAC 1-0.3% ML VIAL 4 ML IRR (09:04)
[2024-04-15] MEDS: PREDNISOLONE ACETATE OP 1% SUSP 100 DROPS/5 ML 1 DROP OP (09:04)
[2024-04-15] MEDS: PROPARACAINE HCL 0.5% 300 DROP/15 ML BOTTLE OP (09:04)
[2024-04-15 09:05] VITALS: BP 141/74; PULSE 68; O2SAT 96
[2024-04-15] MEDS: CEFUROXIME SODIUM 750 MG, 0.9 % SODIUM CHLORIDE 16.3 ML OP (09:05)
== END 2024-04-15 09:22 | disposition home or self-care (01) ==
LOC: SURGOUT 07:26
PROVIDERS: PCP Internal Medicine; Visit Provider Ophthalmology
PROC: (CPT 66984; principal; 2024-04-15 08:45)
DX: H25.11 Age-related nuclear cataract, right eye (principal)
CPT/HCPCS: 66984; V2630

== ENCOUNTER 2024-04-17 06:50 | Outpatient (OUT) | payer MEDICARE, OTHER, SELFPAY ==
--- OUTSIDE RECORDS SUMMARY | 2024-04-17 06:55 | XMS_ITS | CCD ---
Author Organization [facility] Care Team Providers Care Card Cleaner Name Role Phone TIMBO BAIG Primary Care Physician [phone] DO Timbo Baig Primary Care Provider MD [...] ., DR MCMAHON Attending Unavailable JOVANNI, DR IZQUEIRDO Primary Care Unavailable LOYA ., DR MCMAHON Consulting Unavailable [place], DR IVY Jenkins Consulting Unavailable ANDERSON Ann Attending Provider [phone] DO Timbo Baig Primary Care Provider FREEMAN [...] or physicia Propensity to adverse reactions Comment:Done OneTouch Other (1 source) No Known Medication Allergies; Translations: [No Known Medication Allergies] Propensity to adverse reactions (disorder) [facility] Repository Medications Current Medications Medication [...] Start: 08-25-2023 take 1 capsule by mo [facility] once daily hydrochlorothiazide 12.5 mg Cap 12.5 mg = 1 cap(s), Oral, Daily, # 90 cap(s), Refills(s) 3, Pharmacy: [facility], 178, cm, 08/25/23 12:26:00 EDT, Height/Length Dosing, 90, kg, 08/25/23 12:26:00 EDT, Weight Dosing Start Date: 08/25/23 Status: Ordered Start: 12-28-2021 take 1 capsule by mo [facility] once daily hydrochlorothiazide 12.5 mg Cap 12.5 mg = 1 cap(s), Oral, Daily, # 90 cap(s), Refills(s) 3, Pharmacy: [facility], 152, cm, 08/27/21 10:12:00 EDT, [...] 05/17/19 Status: Ordered take 1 tablet by [facility] once daily Metoprolol Succinate ER 25 MG [...] 08-25-[address] [facility] once daily tamsulosin 0.4 mg Cap 0.4 mg = 1 cap(s), Oral, Daily, # 90 cap(s), Refills(s) 3, Pharmacy: [facility], 178, cm, 08/25/23 12:26:00 EDT, Height/Length Dosing, 90, kg, 08/25/23 12:26:00 EDT, Weight Dosing Start Date: 08/25/23 Status: Ordered take [address] [facility] every twenty-four hours Completed/Discontinued Medications Medication Drug [...] # 90 tab(s), Refills(s) 3, Pharmacy: [facility], 152, cm, 04/19/22 10:18:00 EDT, [...] Coronary arteriosclerosis; Translations: [Atherosclerotic heart disease of yuhaaviatam coronary artery without angina pectoris] Onset: 09-15-2018 05-17-2019 Chronic Coronary atherosclerosis and other heart disease (1 source) Coronary atherosclerosis and other heart disease; Translations: [Atherosclerosis of yuhaaviatam arteries of extremities with intermittent claudication, bilateral [...] H/O: high risk medication; Translations: [Other 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 *Follow-up with vascular in [place] for your leg weakness and pain Normal [facility] Office Visiton 01-15-2024 Follow-up visit [id number] Kang Brady 1940 M Date Provider Department Center 01/15/2024 ITTA STEWART CARD [facility] Family History Problem Relation Age of Onset No Known Problems Mother No Known Problems Father Family Status - Relation Status Age at Mother Father Level of Service:46553 [place] OFFICE/OUTPATIENT ESTABLISHED MOD MDM 30 MIN Reason for Visit and Comments: Coronary Artery Disease [187] Congestive Heart Failure [127] Hypertension [993243] Hyperlipidemia [182] Normal [facility] 36on 01-05-2024 36 Regarding labs from 12/26/2023: Tita Rivera, SANG Franco MA Please let him know his labs show his kidney function is stable. Continue current meds. Thanks LM on patient's VM. Normal [facility] Estimated glomerular filtrat ion rate (GFR) non- Americanon 12-26-2023 GFR/1.73 sq M.predicted among non-blacks MDRD (S/P/Bld) [Vol rate/Area] 58 mL/min/{1.73_m2} >=60 [facility] Laboratory - Chemistry and C hemistry - challengeon 12-26-2023 Calcium [Mass/Vol] 9.3 mg/dL 8.5-10.1 [facility] Chloride [Moles/Vol] 101 mmol/L 98-107 [facility] CO2 [Moles/Vol] 28.4 mmol/L 21.0-32.0 [facility] Creatinine [Mass/Vol] 1.21 mg/dL 0.70-1.30 [facility] GFR/1.73 sq M.predicted MDRD (S/P/Bld) [Vol rate/Area] mL/min/{1.73_m2} >=60 [facility] Glucose [Mass/Vol] 117 mg/dL 74-106 [facility] Potassium [Moles/Vol] 3.9 mmol/L 3.5-5.1 [facility] Sodium [Moles/Vol] 138 mmol/L 136-145 [facility] Urea nitrogen [Mass/Vol] 19.0 mg/dL 7.0-18.0 [facility] Urea nitrogen/Creatinine [Mass ratio] 15.7 mg/mg [facility] Serum or plasma anion gap de terminationon 12-26-2023 Anion gap [Moles/Vol] 12.5 mmol/L [facility] 37on 12-17-2023 37 *Start taking lasix 40mg daily along with potassium supplements. *Have labs done around 12/26/2023. *Monitor your weight daily, first thing in the morning after you use the bathroom and before you eat breakfast. *Try to not drink more than 2000ml of fluids a day *Limit sodium/salt intake Normal [facility] Office Visiton 12-17-2023 Follow-up visit [id number] Kang Brady 1940 M Date Provider Department Center 12/17/2023 TITA STEWART CARD [facility] Family History Problem Relation Age of Onset No Known Problems Mother No Known Problems Father Family Status - Relation Status Age at Mother Father Level of Service:24949 [place] OFFICE/OUTPATIENT ESTABLISHED MOD MDM 30 MIN Normal [facility] Urology Office/Clinic Noteon 10-22-2023 Urology Office/Clinic Note Chief Complaint kidney stone and BPH with urinay obstruction HPI Staff 83 yo male here for 3 month f/u with metabolic workup and KUB. Previous Dx: kidney stone, BPH with obstruction. S/p R ESWL 05/22/23. KUB done 07/21/23 at [facility]. Metabolic workup done 07/22/23. Taking HCTZ [...] [facility] [address], [place] [address]- Additional Instructions: w/KUB Patient Education Dietary Guidelines to Help Prevent Kidney Stones I, Leelee Ventura , personally scribed for Dr. Loya on 08/25/2023 13:30:29. . 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 Normal [facility] Comment on above: Result Comment: Elec tronically Signed By: REINIER HUSAIN, Puma Jaramillo\.br\Date and Time Signed: 10/22/23 13:49 EST\.br\Electronically Co-Signed By: Leelee Ventura\.br\Date and Time Co-Signed: 08/25/23 13:30 EDT US ankle/arm indiceson 09-04 US ankle/arm indices [facility] [address] [place] [address] Ultrasound Report Signed Patient: Kang Brady MR#: [id number] 11 : 1940 Acct:[id number] Age/Sex: 83 / M ADM Date: 09/04/23 Loc: [facility] Room: Type: [facility] Attending Dr: Niya Baker ICE SKATER-C Ordering Provider: Niya Baker APRN Date of [...] Jaylon Finnegan MD09/04/2023 1:02 PM Dictation Location: [place] [address] Tech: Pamsaima Richardsguzman Transcribed By: [facility] 09/04/23 1302 Dictated By: Jaylon Finnegan MD 09/04/23 1301 Signed By: 09/04/23 1302 [facility] Patient Educationon 08-25-20 Patient Education Nephrology [...] Spinach (cooked), rhubarb, beets, sweet potatoes, and Gambian chard. ? Peanuts. ? Potato chips, icelandic fries, and baked potatoes with skin on. ? Nuts and nut products. ? Chocolate. ? If you regularly take a diuretic medicine, make sure to eat at least 1 or 2 servings of fruits or vegetables that are high in potassium each day. These include: ? Avocado. ? Banana. ? Sayre, prune, carrot, or tomato juice. ? Baked [...] fish oil, or vitamin B6. ? Take nlit-bkf-sosuwrt and prescription medicines only as told by your health care provider. These include supplements. What foods should I limit? Limit your in (more content not included)... [facility] Lab Reportson 07-29-2023 Lab Reports [id number] 5#1.00CD:127 [facility] Report[facility] 07-28-2023 Lab Reports [id number] 4#1.00CD:127 [facility] 07-24-2023 Lab Reports [id number] 8#1.00CD:127 [facility] Report[facility] 07-23-2023 Lab Reports [id number] C3#1.00CD:127 [facility] Lab Reports [id number] BB#1.00CD:127 [facility] RAD - MISCon 07-22-2023 RAD - MISC [id number] 7#1.00CD:127 [facility] Formson 2023 Forms [id number] A9#1.00CD:127 [facility] RAD - MISCon 05-23-2023 RAD - MISC [id number] B3#1.00CD:127 Normal [facility] Operative Reporton Operative Report [id number] F8#1.00CD:127 [facility] Reportson 05-19-2023 Lab Reports [id number] 7F#1.00CD:127 [facility] Lab Reports [id number] 869#1.00CD:127 [facility] RAD - MISCon 05-19-2023 RAD - MISC [id number] 42#1.00CD:127 [facility] Consent for Procedure/Surger yon 05-05-2023 Consent for Procedure/Surgery [id number] 3E#1.00CD:127 [facility] Formson 05-05-2023 Forms [id number] 1#1.00CD:127 [facility] US carotid doppler BIon 04-11 US carotid doppler BI [facility] [place] [address] Ultrasound Report Signed Patient: Kang Brady MR#: [id number] 11 : 1940 Acct:[id number] Age/Sex: 82 / M ADM Date: 05/01/23 Loc: [facility] Room: Type: [facility] Attending Dr: Niya Baker ICE SKATER-C Ordering Provider: Niya Baker APRN Date of [...] Ricky Stephens M.D.05/02/2023 10:21 AM Dictation Location: [place] [address] Tech: Pam Sheehan Transcribed By: DANIEL 05/02/23 1021 Dictated By: Ricky Stephens MD 05/02/23 1019 Signed By: 05/02/23 1021 Normal [facility] RAD - MISCon 04-25-2023 RAD - MIS [id number] 1D#1.00CD:127 Normal [facility] Ambulatory Visit Summaryon 0 04-21-2023 Ambulatory Visit Summary KANG BRADY :1940 Visit Date:04/21/2023 Ambulatory Visit Instructions Your Diagnosis Kidney stone BPH with urinary obstruction Tests Performed Urnls Dip Stick Auto w/o Microscopy POC [id number] XR Abdomen 1 View -- Results Pending [...] Puma LOYA MD Where: [facility] Jose David Branch [facility] Patient Educationon 04-21-20 Patient Education [...] Spinach (cooked), rhubarb, beets, sweet potatoes, and Gambian chard. ? Peanuts. ? Potato chips, icelandic fries, and baked potatoes with skin on. ? Nuts and nut products. ? Chocolate. ? If you regularly take a diuretic medicine, make sure to eat at least 1 or 2 servings of fruits or vegetables that are high in potassium each day. These include: ? Avocado. ? Banana. ? Sayre, prune, carrot, or tomato juice. ? Baked [...] fish oil, or vitamin B6. ? Take zfhh-sty-zrneamx and prescription medicines only as told by your health care provider. These include supplements. What foods should I limit? Limit your in (more content not included)... 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 Normal [facility] Comment on above: Result Comment: Elec tronically Signed By: Puma LOYA MD\.br\Date and Time Signed: 04/21/23 10:29 EDT\.br\Electronically Co-Signed By: Pastora Ding\.br\Date and Time Co-Signed: 04/21/23 10:26 EDT Laboratory - Microbiology an d Antimicrobial susceptibilityOrdered By: Aury Ann on 04-12-2023 S. pyogenes Ag IA Ql (Unsp spec) [facility] No Panel InformationOrdered By: Aury Ann on 04-12-2023 Flu B [facility] CBC AUTO DIFFon 09-25-2022 BASO # 0.0 103/ul Normal 0.0-0.1 [facility] Comment on above: Performed By: #### C BC #### [facility] [address] [place] [address] Dr. Giacomo Mace Basophils/100 WBC (Bld) 0.5 % Normal 0.2-2.0 [facility] Comment on above: Performed By: #### C BC #### [facility] [address] [place] [address] Dr. Giacomo Mace EO # 0.4 103/ul Normal 0.0-0.7 [facility] Comment on above: Performed By: #### C BC #### [facility] [address] [place] [address] Dr. Giacomo Mace Eosinophils/100 WBC (Bld) 7.0 % Normal 0.9-7.0 [facility] Comment on above: Performed By: #### C BC #### [facility] [address] [place] [address] Dr. Giacomo Mace Erythrocyte distribution width (RBC) [Ratio] 14.6 % Normal 11.0-15.0 [facility] Comment on above: Performed By: #### C BC #### [facility] [address] [place] [address] Dr. Giacomo Mace Hematocrit (Bld) [Volume fraction] 46.9 % Normal 42.0-54.0 [facility] Comment on above: Performed By: #### C BC #### [facility] [address] [place] [address] Dr. Giacomo Mace Hemoglobin (Bld) [Mass/Vol] 15.1 g/dL Normal 14.0-18.0 [facility] Comment on above: Performed By: #### C BC #### [facility] [address] [place] [address] Dr. Giacomo Mace IG # 0.02 10e3/ul Normal 0.00-0.03 [facility] Comment on above: Performed By: #### C BC #### [facility] [address] [place] [address] Dr. Giacomo Mace IG % 0.4 % Normal 0.0-0.5 [facility] Comment on above: Performed By: #### C BC #### [facility] [address] [place] [address] Dr. Giacomo Mace LYMPH # 1.4 103/ul Normal 1.2-3.8 [facility] Comment on above: Performed By: #### C BC #### [facility] [address] [place] [address] Dr. Giacomo Mace Lymphocytes/100 WBC (Bld) 25.3 % Normal 20.5-60.0 [facility] Comment on above: Performed By: #### C BC #### [facility] [address] [place] [address] Dr. Giacomo Mace MANUAL DIFF REQ NO Normal [facility] Comment on above: Performed By: #### C BC #### [facility] [address] [place] [address] Dr. Giacomo Mace MCH (RBC) [Entitic mass] 29.6 pg Normal 25.9-34.0 [facility] Comment on above: Performed By: #### C BC #### [facility] [address] [place] [address] Dr. Giacomo Mace MCHC (RBC) [Mass/Vol] 32.2 g/dL Normal 29.9-35.2 [facility] Comment on above: Performed By: #### C BC #### [facility] [address] [place] [address] Dr. Giacomo Mace MCV (RBC) [Entitic vol] 92.0 fL Normal 80.0-94.0 [facility] Comment on above: Performed By: #### C BC #### [facility] [address] [place] [address] Dr. Giacomo Mace MONO # 0.6 103/ul Normal 0.3-0.8 [facility] Comment on above: Performed By: #### C BC #### [facility] [address] [place] [address] [address] Giacomo Mace Monocytes/100 WBC (Bld) 10.4 % Normal 1.7-12.0 [facility] Comment on above: Performed By: #### C BC #### [facility] [address] [place] [address] Dr. Giacomo Mace NEUT # 3.2 103/ul Normal 1.4-6.5 [facility] Comment on above: Performed By: #### C BC #### [facility] [address] [place] [address] Dr. Giacomo Mace Neutrophils/100 WBC (Bld) 56.4 % Normal 43.0-75.0 [facility] Comment on above: Performed By: #### C BC #### [facility] [address] [place] [address] Dr. Giacomo Mace Platelet mean volume (Bld) [Entitic vol] 10.5 fL Normal 9.5-13.5 [facility] Comment on above: Performed By: #### C BC #### [facility] [address] [place] [address] Dr. Giacomo Mace PLT 227 103/ul Normal 150-450 [facility] Comment on above: Performed By: #### C BC #### [facility] [address] [place] [address] Dr. Giacomo Mace RBC 5.10 106/ul Normal 4.70-6.10 [facility] Comment on above: Performed By: #### C BC #### [facility] [address] [place] [address] Dr. Giacomo Mace WBC 5.7 103/ul Normal 4.0-11.0 [facility] Comment on above: Performed By: #### C BC #### [facility] [address] [place] [address] [address] Giacomo Mace LIPID PROFILEon 09-25-2022 CHOL-HDL RATIO NORM SEE BELOW Normal [facility] Comment on above: Result Comment: 3.3 - 4.4 LOW RISK 4.4 - 7.1 AVERAGE RISK 7.1 - 11.0 MODERATE RISK >11.0 HIGH RISK Performed By: #### B MP, LIPID #### [facility] [address] [place] [address] [address] Giacomo Mace Cholesterol [Mass/Vol] 219 mg/dL Critically high <=200 [facility] Comment on above: Performed By: #### B MP, LIPID #### [facility] [address] [place] [address] [address] Giacomo Mace Cholesterol in HDL [Mass/Vol] 61 mg/dL Critically high 40-60 [facility] Comment on above: Performed By: #### B MP, LIPID #### [facility] [address] [place] [address] [address] Giacomo Mace Cholesterol in LDL [Mass/Vol] 136.4 mg/dL Normal [facility] Comment on above: Performed By: #### B MP, LIPID #### [facility] [address] [place] [address] [address] Giacomo Mace Cholesterol.total/Cholest jose elias in HDL [Mass ratio] 3.6 {ratio} Normal [facility] Comment on above: Performed By: #### B MP, LIPID #### [facility] [address] [place] [address] [address] Giacomo Mace HDL NORMAL > or = 60 mg/dl - LOW CARDIOVASCULAR RISK <40 mg/dl - HIGH CARDIOVASCULAR RISK Normal [facility] Comment on above: Performed By: #### B MP, LIPID #### [facility] [address] [place] [address] [address] Giacomo Mace LDL CALC NORMAL SEE BELOW Normal [facility] Comment on above: Result Comment: <100 mg/dl OPTIMAL 100 - 129 mg/dl NEAR OR ABOVE OPTIMAL 130 - 159 mg/dl BORDERLINE HIGH 160 - 189 mg/dl HIGH >190 mg/dl VERY HIGH Performed By: #### B MP, LIPID #### [facility] [address] [place] [address] [address] Giacomo Mace Triglyceride [Mass/Vol] 108 mg/dL Normal <=150 [facility] Comment on above: Performed By: #### B MP, LIPID #### [facility] [address] [place] [address] Dr. Giacomo Mace VLDL CALC 21.6 mg/dL Normal [facility] Comment on above: Performed By: #### B MP, LIPID #### [facility] [address] [place] [address] Dr. Giacomo Mace PROF CHEM 8 (BAS METB)on Anion gap [Moles/Vol] 9.6 mmol/L Normal [facility] Comment on above: Performed By: #### B MP, LIPID #### [facility] [address] [place] [address] Dr. Giacomo Mace Calcium [Mass/Vol] 9.3 mg/dL Normal 8.5-10.1 [facility] Comment on above: Performed By: #### B MP, LIPID #### [facility] [address] [place] [address] Dr. Giacomo Mace Chloride [Moles/Vol] 104 mmol/L Normal 98-107 [facility] Comment on above: Performed By: #### B MP, LIPID #### [facility] [address] [place] [address] Dr. Giacomo Mace CO2 [Moles/Vol] 27.8 mmol/L Normal 21.0-32.0 [facility] Comment on above: Performed By: #### B MP, LIPID #### [facility] [address] [place] [address] Dr. Giacomo Mace Creatinine [Mass/Vol] 1.08 mg/dL Normal 0.70-1.30 [facility] Comment on above: Performed By: #### B MP, LIPID #### [facility] [address] [place] [address] Dr. Giacomo Mace EGFR-AF SURINAMESE >60 Normal >=60 [facility] Comment on above: Performed By: #### B MP, LIPID #### [facility] [address] [place] [address] [address] Giacomo Mace EGFR-NON AF SURINAMESE >60 Normal >=60 [facility] Comment on above: Performed By: #### B MP, LIPID #### [facility] [address] [place] [address] [address] Giacomo Mace Glucose [Mass/Vol] 111 mg/dL Critically high 74-106 [facility] Comment on above: Performed By: #### B MP, LIPID #### [facility] [address] [place] [address] [address] Giacomo Mace Potassium [Moles/Vol] 4.4 mmol/L Normal 3.5-5.1 [facility] Comment on above: Performed By: #### B MP, LIPID #### [facility] [address] [place] [address] [address] Giacomo Mace Sodium [Moles/Vol] 137 mmol/L Normal 136-145 [facility] Comment on above: Performed By: #### B MP, LIPID #### [facility] [address] [place] [address] [address] Giacomo Mace Urea nitrogen [Mass/Vol] 27.0 mg/dL Critically high 7.0-18 .0 [facility] Comment on above: Performed By: #### B MP, LIPID #### [facility] [address] [address] [address] Giacomo Mace Urea nitrogen/Creatinine [Mass ratio] 25.0 mg/mg Normal [facility] Comment on above: Performed By: #### B MP, LIPID #### [facility] [address] [address] [address] Giacomo Mace ECHOCARDIO M/2D COMPLETEon 0 07-09-2022 ECHOCARDIO M/2D COMPLETE Patient: KANG BRADY Exam Date: 07/09/2022 : 1940 Gender:M Ordering : [facility] Admission #: [id number] Family : DR TIMBO BAIG D.O. Order #: [id number] CLICK HERE TO VIEW EXAM ECHOCARDIOGRAM REPORT [...] Davis M.D. on 07/10/2022 at 14:46 Normal [facility] CPKon 04-27-2022 CK [Catalytic activity/Vol] 96 U/L Normal 39-308 [facility] Comment on above: Performed By: #### C RP, CK #### [facility] [address] [place] [address] Dr. Giacomo Mace CRPon 04-27-2022 CRP [Mass/Vol] mg/L Normal <=1.0 [facility] Comment on above: Performed By: #### C RP, CK #### [facility] [address] [place] [address] Dr. Giacomo Mace ELECTROLYTESon 04-18-2022 Anion gap [Moles/Vol] 11.8 mmol/L Normal [facility] Comment on above: Performed By: #### E LEC #### [facility] [address] [place] [address] Dr. Giacomo Mace Chloride [Moles/Vol] 104 mmol/L Normal 98-107 [facility] Comment on above: Performed By: #### E LEC #### [facility] [address] [place] [address] Dr. Giacomo Mace CO2 [Moles/Vol] 27.5 mmol/L Normal 21.0-32.0 [facility] Comment on above: Performed By: #### E LEC #### [facility] [address] [place] [address] Dr. Giacomo Mace Potassium [Moles/Vol] 4.3 mmol/L Normal 3.5-5.1 [facility] Comment on above: Performed By: #### E LEC #### [facility] [address] [place] [address] Dr. Giacomo Mace Sodium [Moles/Vol] 139 mmol/L Normal 136-145 [facility] Comment on above: Performed By: #### E LEC #### [facility] [address] [place] [address] Dr. Giacomo Mace XR KUB 1 VIEWon [...] by: IVY DOMINGUEZ Date: 2022-04-18 08:04 Normal [facility] Vital Signs Date Time Vital Sign Value Performing Clinician Facility 03-15-2024 11:40-0400 Body height 177.8 cm [facility] 03-15-2024 11:40-0400 Body mass index (BMI) [Ratio] 29 kg/m2 [facility] 03-15-2024 11:40-0400 Body weight 91.73 kg [facility] 03-15-2024 11:40-0400 Diastolic blood pressure 76 mm[Hg] [facility] 03-15-2024 11:40-0400 Heart rate 66 /min [facility] 03-15-2024 11:40-0400 Respiratory rate 12 /min [facility] 03-15-2024 11:40-0400 Systolic blood pressure 129 mm[Hg] [facility] 01-08-2024 14:10-0500 Body height 177.8 cm [facility] 01-08-2024 14:10-0500 Body mass index (BMI) [Ratio] 28.8 kg/m2 [facility] 01-08-2024 14:10-0500 Body weight 90.94 kg [facility] 11-21-2023 10:30-0500 Body height 177.8 cm [employer] Other [place] [employer] [place] [employer] Other 11-21-2023 10:30-0500 Body mass index (BMI) [Ratio] 29.12 kg/m2 [employer] Other [facility] Other 11-21-2023 10:30-0500 Body weight 92.08 kg Timbo Ball Other [facility] Other 11-21-2023 10:30-0500 Diastolic blood pressure 66 mm[Hg] Timbo Ball Other [facility] Other 11-21-2023 10:30-0500 Respiratory rate 12 /min Timbo Ball Other [facility] Other 11-21-2023 10:30-0500 Systolic blood pressure 103 mm[Hg] Timbo Ball Other [facility] Other 09-24-2023 11:00-0500 Body height 177.8 cm Timbo Ball Other [facility] Other 09-24-2023 11:00-0500 Body mass index (BMI) [Ratio] 28.69 kg/m2 Timbo Ball Other [facility] Other 09-24-2023 11:00-0500 Body weight 90.72 kg Timbo Ball Other [facility] Other 09-24-2023 11:00-0500 Diastolic blood pressure 73 mm[Hg] Timbo Ball Other [employer] Other 09-24-2023 11:00-0500 Respiratory rate 12 /min Timbo Ball Other [employer] Other 09-24-2023 11:00-0500 Systolic blood pressure 134 mm[Hg] Timbo Ball Other [employer] Other 08-25-2023 12:21-0400 Blood Pressure Location Puma LOYA [facility] 08-25-2023 12:21-0400 Diastolic blood pressure 82 mm[Hg] Puma LOYA [facility] 08-25-2023 12:21-0400 Heart rate 80 /min Pumaaleksandr LOYA [facility] 08-25-2023 12:21-0400 Respiratory rate 16 /min Puma LOYA [facility] 08-25-2023 12:21-0400 Systolic blood pressure 137 mm[Hg] Puma LOYA [facility] 04-12-2023 09:16-0400 Body temperature 97 [degF] PA Aury Shehorn Work Phone: [facility] 04-12-2023 09:16-0400 Body weight 88.45 kg PA Aury Shehorn Work Phone: [facility] 04-12-2023 09:16-0400 Diastolic blood pressure 62 mm[Hg] PA Aury Shehorn Work Phone: [facility] 04-12-2023 09:16-0400 Heart rate 80 /min PA Aury Shehorn Work Phone: [facility] 04-12-2023 09:16-0400 SaO2% (BldA) [Mass fraction] 96 % PA Aury Shehorn Work Phone: [facility] 04-12-2023 09:16-0400 Systolic blood pressure 123 mm[Hg] PA Aury Shehorn Work Phone: [facility] 03-24-2023 12:00-0400 Body height 177.8 cm Timbo Ball Other [facility] Other 03-24-2023 12:00-0400 Body mass index (BMI) [Ratio] 28.44 kg/m2 Timbo Ball Other [employer] Other 03-24-2023 12:00-0400 Body weight 89.9 kg Timbo Ball Other [employer] Other 03-24-2023 12:00-0400 Diastolic blood pressure 67 mm[Hg] Timbo Ball Other [employer] Other 03-24-2023 12:00-0400 Respiratory rate 12 /min Timbo Ball Other [employer] Other 03-24-2023 12:00-0400 Systolic blood pressure 123 mm[Hg] Timbo Ball Other [employer] Other 04-29-2022 14:30-0400 Body height 177.8 cm Niya Rutjorge Other [employer] Other 04-29-2022 14:30-0400 Body mass index (BMI) [Ratio] 28.69 kg/m2 Niya Rutjorge Other [employer] Other 04-29-2022 14:30-0400 Body temperature 96.3 [degF] Niya Samuel Other [employer] Other 04-29-2022 14:30-0400 Body weight 90.72 kg Niya Chowjorge Other [employer] Other 04-29-2022 14:30-0400 Diastolic blood pressure 80 mm[Hg] Niya Baker Other [facility] Other 04-29-2022 14:30-0400 SaO2% (BldA) [Mass fraction] 98 % Niya Baker Other [facility] [employer] Other 04-29-2022 14:30-0400 Systolic blood pressure 120 mm[Hg] Niya Baker Other [facility] [employer] Other 04-19-2022 10:04-0400 Blood Pressure Location Puma LOYA [facility] 04-19-2022 10:04-0400 Diastolic blood pressure 84 mm[Hg] Puma LOYA [facility] 04-19-2022 10:04-0400 Heart rate 67 /min Puma LOYA [facility] 04-19-2022 10:04-0400 Respiratory rate 16 /min Puma LOYA [facility] 04-19-2022 10:04-0400 Systolic blood pressure 143 mm[Hg] Puma LOYA [facility] Encounters Encounter Date Encounter Type Care Provider Facility Start: 03-15-2024 End: 03-15-2024 ambulatory [facility] Work Phone: Start: 03-15-2024 End: 03-15-2024 Patient encounter procedure [facility] Work Phone: Start: 02-11-2024 End: 02-11-2024 ambulatory NAVNEET BLANC Not Available Start: 01-15-2024 End: 01-15-2024 ambulatory TITA RIVERA [facility] Start: 01-08-2024 End: 01-08-2024 Patient encounter procedure [facility] Neurosurgery Work Phone: Start: 12-26-2023 Non-patient / Non-visit [facility] Work Phone: Start: 12-17-2023 End: 12-17-2023 ambulatory TITA [facility] Start: 11-21-2023 End: 11-21-2023 ambulatory Timbo Baig Other [employer] Other Start: 11-21-2023 Office outpatient vi sit 15 minutes Tmibo Baig [facility] Start: 10-08-2023 End: 10-08-2023 ambulatory Timbo Jovanni Other [employer] Other Start: 10-08-2023 Telephone encounter Timbo Baig [facility] Start: 09-24-2023 End: 09-24-2023 ambulatory Timbo Jovanni Other [employer] Other Start: 09-24-2023 Office outpatient vi sit 25 minutes Timbo Baig [facility] Start: 09-04-2023 Office outpatient vi sit 15 minutes Jaylon Finnegan [facility] Vascular Surgery Start: 09-04-2023 End: 09-04-2023 ambulatory DO Timbo Baig Work Phone: [employer] Other Start: 09-04-2023 End: 09-04-2023 Patient encounter procedure DO Timbo Jovanni Work Phone: [facility] Start: 08-25-2023 End: 08-26-2023 ambulatory Puma LOYA Facility: [place] Start: 08-25-2023 End: 08-25-2023 Patient encounter procedure Puma LOYA [facility] Jose David Start: 2023 End: 2023 ambulatory Niya Baker Other [facility] [employer] Other Start: 2023 Telephone encounter Niya Samuel Elisabeth [facility] Start: 05-22-2023 End: 05-23-2023 ambulatory Puma Clint REINIER [facility] [employer] Other Start: 05-22-2023 Telephone encounter Niya Samuel Elisabeth [facility] Start: 05-01-2023 End: 05-01-2023 ambulatory Niya R Courtneyconstance Facility:[facility] Start: 05-01-2023 End: 05-01-2023 ambulatory DO Timbo Baig Work Phone: [facility] Work Phone: Start: 05-01-2023 End: 05-01-2023 Patient encounter procedure DO Timbo Baig Work Phone: [facility] Start: 04-21-2023 End: 04-22-2023 ambulatory Puma Clint LOYA Facility:[facility] Start: 04-12-2023 End: 04-12-2023 ambulatory PA Aury Shehorn Work Phone: [facility] Work Phone: Start: 04-12-2023 End: 04-12-2023 Patient encounter procedure PA Aury Shehorn Work Phone: [facility] Work Phone: Start: 04-02-[address] TIMBO BAIG Facili ty:[facility] Start: 03-24-2023 End: 03-24-2023 ambulatory Timbo Baig Other [facility] [employer] Other Start: 03-24-2023 Patient encounter procedure Timbo Baig [facility] Jovanni [facility] Start: 09-25-2022 End: 09-26-[address] TIMBO BAIG Facility:[facility] Start: 07-09-2022 End: 07-10-2022 ambulatory TITA RIVERA Facility:[facility] Start: 04-29-2022 End: 04-29-2022 ambulatory Niya Baker Other [place] [employer] Other Start: 04-29-2022 Follow-up encounter Niya Barber [facility] Start: 04-29-2022 End: 04-29-2022 Patient encounter procedure DO Timbo Jovanni Work Phone: [facility] Start: 04-27-2022 End: 04-28-[address] TIMBO BAIG Facility:[facility] Start: 04-19-2022 End: 04-19-2022 Patient encounter procedure Puma LOYA [facility] Start: 04-18-2022 End: 04-19-[address] PUMA LOYA . Facility:[facility] Start: 03-13-2022 Adult health examination Jaylon Finnegan Other [facility] [employer] Other Procedures Date Procedure Procedure Detail Performing [...] Activity Detail Author Start: 08-30-2024 ambulatory Ambulatory Facility:[facility] Start: 01-08-2024 Patient referral [facility] Work Phone: Start: 05-01-2023 Doppler ultrasonography of bilateral carotid arteries US carotid doppler [facility] Start: 05-01-2023 US.doppler Carotid arteries - bilateral [facility] Start: 04-29-2022 Doppler ultrasonography of bilateral carotid arteries US carotid doppler [facility] Comprehensive metabo lic 2000 panel - Serum or Plasma [facility] Patient Education Viral Syndrome (AC) [facility] [employer] Work Phone: Patient referral [facility] Work Phone: XR Lumbar spine 4 Views [facility] Immunizations Immunization Date Immunization Notes Care Provider Fa cility 08-04-2022 COVID-19 Pfizer (bivalent) Timbo Baig Other [facility] 08-04-2022 influenza virus vaccine, unspecified formulation Puma LOYA [facility] 08-04-2022 influenza, high dose seasonal, preservative-free Timbo Baig Other [employer] Other 02-21-2022 COVID-19 Pfizer Timbo velasco Other [facility] 02-21-2022 SARS-CoV-2 mRNA (dlsabhekpcz-dzas-yreia se) vaccine Puma LOYA [facility] 09-06-2021 zoster vaccine recombinant Timbo Baig Other [facility] 08-10-2021 influenza virus vaccine, unspecified formulation Puma LOYA [facility] 08-07-2021 COVID-19 Vaccine Pfi zer - Documentation Purposes Only Timbo Baig Other [facility] Comment on above: Result Comment: 2022: [id number] 07-19-2021 influenza virus vaccine, unspecified formulation Puma LOYA [facility] 05-16-2021 zoster vaccine recombinant Timbo Baig Other [facility] 01-09-2021 COVID-19 Vaccine Pfi zer - Documentation Purposes Only Timbo Baig Other [facility] Comment on above: Result Comment: 2022: [id number] 12-19-2020 COVID-19 Vaccine Pfi zer - Documentation Purposes Only Timbo Baig Other [facility] Comment on above: Result Comment: 2022: [id number] 07-31-2020 influenza virus vaccine, unspecified formulation Puma LOYA [facility] 08-20-2019 influenza virus vaccine, split virus (incl. purified surface antigen) Jaylon Finnegan Other [employer] Other 08-20-2019 influenza virus vaccine, unspecified formulation [facility] 08-10-2019 influenza virus vaccine, unspecified formulation Puma LOYA [facility] 02-19-2019 pneumococcal polysaccharide vaccine, 23 valent Timbo Baig Other [facility] 09-21-2018 influenza virus vaccine, unspecified formulation Puma [employer] [facility] 08-19-2018 influenza virus vaccine, split virus (incl. purified surface antigen) Jaylon Finnegan Other [employer] Other 08-19-2018 influenza virus vaccine, unspecified formulation [facility] 02-16-2018 pneumococcal conjuga te vaccine, 13 valent Timbo Baig Other [facility] 09-02-2017 influenza virus vaccine, unspecified formulation Puma [employer] [facility] 08-28-2016 influenza virus vaccine, unspecified formulation Puma LOYA [facility] 08-22-2015 influenza virus vaccine, unspecified formulation Puma LOYA [facility] 08-19-2013 influenza virus vaccine, unspecified formulation Puma LOYA [facility] Payers Date Payer Category Payer Self-pay [id number] 1957 Medicare [id number] 1959 Private Health Insurance [id number] 1940 Unknown [id number] 3 1940 Unknown [id number] [id number] 3 1940 Unknown [id number] 3 1940 Unknown [id number] [id number] 3 1940 Unknown [id number] [id number] 3 1940 Unknown [id number] [id number] 7 1940 Unknown [id number] [id number] 7 1940 Unknown [id number] [id number] 7 1940 Unknown [id number] [id number] 7 1940 Unknown [id number] [id number] 61 Medicare MEDICARE PARTS A & B [id number] Unknown [id number] 1 Unknown [id number] 1 Social History Date Type Detail Facility Start: 08-27-2021 End: 04-21-2023 Tobacco smoking status Ex-smoker (finding) [facility] Sex Assigned At Male [facility] Start: 1940 Sex Assigned At Male F [facility] Start: 04-12-2023 Alone [facility] Start: 04-12-2023 0 [facility] Start: 03-12-2024 Tobacco smoking stat us NJIS Never smoked tobacco (finding) [facility] Functional Status Date Assessment Result Facility 08-25-2023 Functional Status N/A [facility] Clinical Notes 04-19-2022 to 01-15-2024 Note [...] systems reviewed and are negative. [facility] 01-15-2024 Note Cardiovascular Medic ine [facility] SUBJECTIVE Chief Complaint Patient presents with Coronary Artery Disease Congestive Heart Failure Hypertension Hyperlipidemia Kang Brady is a 83 y.o. male here for follow-up. HPI PMHx: AVR 2014, CAD s/p CABG x1 2015, HTN, carotid stent by vascular surgeon in [place] (Dr. Cedillo) 01/15/2024 He notes that his [...] va (more content not included)... [facility] 12-17-2023 Note Patient here for [...] systems reviewed and are negative. [facility] 12-17-2023 Note Cardiovascular Medic ine [facility] SUBJECTIVE No chief complaint on file. Kang Brady is a 83 y.o. male here for follow-up. HPI PMHx: AVR 2014, CAD s/p CABG x1 2015, HTN, carotid stent by vascular surgeon in [place] (Dr. Cedillo) He works out a few [...] valve disease Hypertension PVD (peripheral vascular disease) ([facility]) Sleep apnea Family History Problem Relation Name [...] aortic stenosis by invasive hemodynamic study. 2. Ccdsydmb-rw-wdneyf two-vessel coronary artery disease involving the left anterior descending and left circumflex coronary arteries. 3. Normal right-sided heart pressures and wedge pressure. 4. Normal cardiac output/cardiac index. 5. 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 (more content not included)... [facility] 11-21-2023 Evaluation note Encounter Date [...] a couple years. - previously referred to [facility] Neurosurgery but declined treatment He feels [...] and feet daily for blisters and ulcerations. [facility] Other 11-15-2023 Evaluation note* Encounter Date Diagnosis [...] w/ serial Echocardiogram Control BP and HR [facility] Other 10-26-2023 Evaluation note* Encounter Date Diagnosis [...] pain which seems to be bothering him. [facility] Other 10-16-2023 Hospital Discharge instructions Patient Education [...] include: ?8 oz (237 mL) of milk, xqnjvql-hcstxnjjkdgw-epkyv milk, and calcium- fortifiedfruit juice. Calcium-fortified means [...] ?Spinach (cooked), rhubarb, beets, sweet potatoes, and Gambian chard. ?Peanuts. ?Potato chips, icelandic fries, and baked potatoes with skin on. ?Nuts and nut products. ?Chocolate. If you regularly take a diuretic medicine, make sure to eat at least 1 or 2 servings of fruits or vegetables that are high in potassium each day. These include: ?Avocado. ?Banana. ?Sayre, prune, carrot, or tomato juice. ?Baked potato. [...] magnesium, fish oil, or vitamin B6. Take gqev-dsu-zfqpequ and prescription medicines only as told by [...] Casseroles. Pizza. Lasagna. Frozen meals. Potato chips. Grenadian fries. The items listed above may not [...] provider. Document Revised: 07/08/2022 Document Reviewed: 07/08/2022 [employer] Patient Education 2022 [employer]. Follow Up Care 05/30/2023 13:07:47 With:REINIER HUSAIN, Puma Jaramillo, URL Address: [facility] [address], [place] [address]- When:Within 1 Year(s) Comments:w/MELQUIADES [facility] Jose David 05-15-2023 Evaluation note* Encounter [...] High risk medication use (ICD-10 - Z79.899) [facility] Other 06-20-2022 Evaluation note* Encounter Date Diagnosis [...] agrees with this plan, denies any questions. [facility] Other 06-10-2022 Hospital Discharge instructions Patient Education 04/19/2022 10:54:30 Kidney Stones, Vsnt-lz-Hrwb Kidney Stones Kidney stones are rock-like masses [...] Follow these instructions at home: Medicines Take ggyc-zun-sohgrgc and prescription medicines only as told by [...] 04/14/2009 Document Revised: 03/14/2020 Document Reviewed: 03/14/2020 [employer] Patient Education 2020 [employer]. Follow Up Care 08/27/2021 10:53:23 With:REINIER HUSAIN, Puma Jaramillo, URL Address: [facility] [address], [place] [address]- [phone] When:04/19/2023 [facility] evaluation + Plan note Future Appointments Appointment Date:04/21/2023 09:45:00 AM Scheduled Provider:Puma LOYA MD Location:[facility] Appointment Type:URO Office Visit [facility] evaluation + Plan note Future Appointments Appointment Date:08/30/2024 10:30:00 AM Scheduled Provider:Puma LOYA MD Location:[facility] Appointment Type:URO Office Visit [facility] evaluation noteNo assessment information available [facility] Work Phone: Evaluation note* Diagnosis Onset Date Resolution Status Viral URI acute [facility] Work Phone: Evaluation noteNo InformationNort [employer] Other Evaluation note* Diagnosis Onset Date Resolution [...] acute Medicare annual wellness visit, subsequent noneactive [facility] Work Phone: Hisoqpe general Narrative - Reported* Type Description Date Medical History carotid stenosis Medical History HTN Surgical History heart valve replaced 2013 Surgical History left internal carotid angioplas ty and stent 2011 [facility] Other Hisovgy general Narrative - Reported* Type Description Date [...] RIGHT 2020 Hospitalization History SEE SURGICAL HX [facility] Other Hiswice general Narrative - Reported* Type Description Date [...] kidney 05/2023 Hospitalization History SEE SURGICAL HX [facility] Other Hospital course Narrative No data available for this section [facility] progress note No data available for this section [facility] reason for referral (narrative)* Reason Referral for lumbar foraminal stenosis and left lower extremity weakness. 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 372) Referral Organization [facility] penny Referring Provider First Name Timbo Referring Provider Last Name Jovanni Referring Provider Specialty Internal Me dicine Referred Organization [facility] Referred Provider Boby Mai [place]erred Address [address] [place], [place],[address] Referred Provider Specialty Neurological Surgery Referral Priority [...] Notes Include recent and p revious MRI [place] [employer] [place] [employer] [employer] Other Chief Complaint and Reason for Visit [...] face for AFO brace- fax note to [phone] (unrecognized sect ion and content) No Status Records FoundNo Status Records FoundNo Status Records FoundNo Status Records FoundNo Status Records Found INFORMATION SOURCE (unrecogn ized section and content) DATE CREATED AUTHOR 03/25/2023 [facility] DATE CREATED AUTHOR AUTHOR'S ORGANIZ ATION 09/14/2023 [facility] [facility] DATE CREATED AUTHOR AUTHOR'S ORGANIZ ATION 10/24/2023 [facility] DATE CREATED AUTHOR AUTHOR'S ORGANIZ ATION 01/16/2024 [facility] DATE CREATED AUTHOR AUTHOR'S ORGANIZ ATION 02/12/2024 [facility] EPIC FOR RECORDS PERTAINING TO [...] BE BASED ON THE PRIMARY CLINICAL RECORDS. [employer] provides no warranty or guarantee of the accuracy or completeness of information in this document.
[2024-04-17 09:03] LABS: Thyroid Stimulating Hormone 5.269 uIU/mL (0.358-3.740)
[2024-04-17 09:26] LABS: Free T4 0.79 ng/dL (0.76-1.46)
[2024-04-18 08:10] LABS: Triiodothyronine (T3) 97 ng/dL (71-180)
== END 2024-04-17 06:51 | disposition home or self-care (01) ==
PROVIDERS: PCP Internal Medicine; Visit Provider Internal Medicine
DX: R79.89 Other specified abnormal findings of blood chemistry (principal)
CPT/HCPCS: 36415; 84439; 84443; 84480

== ENCOUNTER 2024-04-29 12:23 | Outpatient (OUT) | payer MEDICARE, OTHER, SELFPAY ==
[2024-04-29 13:04] LABS: Anion Gap 12.7; BUN Creatinine Ratio 21.6; Calcium 9.2 mg/dL (8.5-10.1); Carbon Dioxide 31.3 mmol/L (21.0-32.0); Chloride 99 mmol/L (98-107); Estimated GFR (African America 59 (>=60); Estimated GFR (Non-African Ame 49 (>=60); Glucose 94 mg/dL (74-106); Sodium 140 mmol/L (136-145)
== END 2024-04-29 12:24 | disposition home or self-care (01) ==
LOC: LAB 12:25
PROVIDERS: PCP Internal Medicine; Visit Provider Internal Medicine
DX: I50.32 Chronic diastolic (congestive) heart failure (principal)
CPT/HCPCS: 36415; 80048; 83880

== ENCOUNTER 2024-09-13 08:16 | Outpatient (OUT) | payer MEDICARE, OTHER, SELFPAY ==
--- NOTE | 2024-09-13 08:24 | XR_ITS ---
The [address] [address] Patient Name: KANG BRADY MRN: [id number] date: 1940 Sex: M Assigned Patient Location: [facility] Current Patient Location: Accession/Order Number: [id number] Exam Date: 09/13/2024 08:28 Report Date: 09/14/2024 06:51 At the request of: [place] Procedure: XR abdomen 1V EXAMINATION: XR abdomen 1V HISTORY: Kidney Stone COMPARISON: 07/21/2023 FINDINGS: KIDNEY/URETER - RIGHT: Stable right 5 mm nephrolith KIDNEY/URETER - LEFT: No visible renal or ureteral calcifications. PELVIS: No visible ureteral calcifications. Any visible calcifications favor phleboliths. BOWEL: No abnormal dilation or deviation. BONES: No acute abnormality. Degenerative change OTHER: Negative. No abnormal gaseous collections. XR/XR abdomen 1V IMPRESSION: Stable 5 mm right nephrolith Electronically authenticated by: IVY DOMINGUEZ Date: 09/14/2024 06:51
== END 2024-09-13 08:17 | disposition home or self-care (01) ==
LOC: RAD 08:18
PROVIDERS: PCP Internal Medicine; Visit Provider Urology
DX: N20.0 Calculus of kidney (principal)
CPT/HCPCS: 74018

== ENCOUNTER 2025-03-25 07:05 | Outpatient (OUT) | payer MEDICARE, OTHER, SELFPAY ==
--- OUTSIDE RECORDS SUMMARY | 2025-03-25 07:08 | XMS_ITS | CCD ---
Author Organization [facility] CliniSyva Care Team Providers Care Hand Sander Name Role Phone TIMBO BAIG Primary Care Physician DO Timbo Baig Primary Care Provider [phone] MD Jaylon Finnegan Attending Provider [phone] Niya Baker Unavailable Timbo Baig Unavailable JENNIFFER, DR IZQUIERDO Admitting Unavailable BALL, DR IZQUIERDO Attending Unavailable BALL, DR IZQUIERDO Primary Care Unavailable BALL, DR IZQUIERDO Consulting Unavailable JENNIFFER, DR IZQUIERDO Admitting Unavailable JENNIFFER, DR IZQUIERDO Attending Unavailable JENNIFFER, DR IZQUIERDO Primary Care Unavailable PARVIZ, TITA Admitting Unavailable PARVIZ, TITA Attending Unavailable JENNIFFER, DR IZQUIERDO Primary Care Unavailable TITA JJ Consulting Unavailable JENNIFFER, DR IZQUIERDO Admitting Unavailable JENNIFFER, DR IZQUIERDO Attending Unavailable BALL, DR IZQUIERDO Primary Care Unavailable BALL, DR IZQUIERDO Consulting Unavailable LOYA ., DR MCMAHON Admitting Unavailable LOYA ., DR MCMAHON Attending Unavailable BALL, DR IZQUIERDO Primary Care Unavailable LOYA ., DR MCMAHON Consulting Unavailable ADELL, DR IVY Jenkins Consulting Unavailable ANDERSON Ann Attending Provider DO Timbo Baig Primary Care Provider FREEMAN Baker Attending Provider Jaylon Finnegan Unavailable DO Timbo Baig Primary Care Provider FREEMAN Baker Attending Provider TITA JJ Attending Unavailable TITA JJ Attending Unavailable NAVNEET BLANC Attending Unavailable RADHA THOMSON Referring Unavailable DO Timbo Baig Primary Care Provider FREEMAN Baker Attending Provider DO Timbo Baig Primary Care Provider TwoDO Bertha desouza Attending Provider MD Abimael Cruz Referring Provider Jenniffer DO Izquierdo Primary Care Provider [phone] TwoDO Bertha desouza Attending Provider [phone] MD Abimael Cruz Referring Provider Salome LOYA Attending Unavailable Salome LOYA Attending Unavailable Timbo Baig DO Primary Care Provider [phone] Jaylon Finnegan MD Attending Provider [phone] Samuel CUELLARCNiya Attending Provider Jaylon Finnegan Admitting Unavailabl e Kain, Jaylon Lepe Attending Unavailabl e [facility] [place] Unavailable Jaylon Finnegan Admitting Unavailabl e Kain, Jaylon Lepe Attending Unavailabl e [facility] Unavailable RuttinNiya nolasco Admitting Unavailable RuttinNiya nolasco Attending Unavailable [facility] Unavailable Twohig, Ling D Attending Unavailable [facility] Unavailable Twodeo, Bertha Pittman Admitting Unavailable Abimael Cruz Referring Unavai bobby Baig [facility] Unavailable Twohig, Ling D Admitting Unavailable Twohig, Ling D Attending Unavailable [facility] Unavailable Twohig, Ling D Admitting Unavailable Twohig, Bertha Pittman Attending Unavailable Niya Baker Admitting Unavailable Niya Baker Attending Unavailable [facility] [place] Unavailable Allergies Allergy Classification Reported Allergen(s) Allergy Type Date of Onset Reaction(s) Facility (1 source) patient allergy list reviewed by nurse or physicia Propensity to adverse reactions 9 Comment:Done eSpace Other (1 source) No Known Medication Allergies; Translations: [No Known Medication Allergies] Propensity to adverse reactions (disorder) [facility] Repository Medications Current Medications Medication Drug Class(es) Dates Sig (Normalized) Sig (Original) aspirin 81 mg delayed release oral tablet (20 sources) Platelet Aggregation Inhibitor, Nonsteroidal Anti-inflammatory Drug Start: 01-08-2024 take 1 tablet by mouth once daily Aspirin 81 mg tablet,delayed release (DR/EC) Active 1 TAB PO Daily January 08, 2024 12:00am FreeTextSi tablet Orally Once a day; Note: Source Status: Taking; Provider: Jenniffer Izquierdo ( ) Start: 05-17-2019 take 1 mg by mouth once daily aspirin 81 mg oral tablet mg tab(s), Oral, Daily, Refills(s) 0 Start Date: 05/17/19 Status: Ordered take 1 tablet by sarah th every twenty-four hours Aspirin 81 MG 1 tablet Orally Once a day Active cholecalciferol 0.125 mg oral capsule (9 sources) Vitamin D Start: 08-16-2024 take 1 capsule by mouth once daily Cholecalciferol (Vitamin D3) 125 mcg (5,000 unit) capsule Active 125 MCG PO Daily August 15, 2024 11:00pm citalopram 20 mg oral tablet (20 sources) Serotonin Reuptake Inhibitor Start: 08-16-2024 take 1 tablet by mouth once daily Citalopram 20 mg tablet Active 20 MG PO Daily August 15, 2024 11:00pm Start: 05-17-2019 End: 03-12-2024 take 1 tablet by mouth once daily Citalopram 20 mg tablet Discontinued 20 MG PO Daily January 08, 2024 12:00am March 12, 2024 3:28pm take 1 tablet by sarah th every twenty-four hours doxepin 6 mg oral tablet (3 sources) Tricyclic Antidepressant Start: 10-28-2024 take 1 tablet by mouth once daily at bedtime as needed for sleep Doxepin 6 mg tablet Active 6 MG PO Daily at bedtime as needed for sleep October 28, 2024 12:00am finasteride 5 mg oral tablet (20 sources) 5-alpha Reductase Inhibitor Start: 08-16-2024 take 1 tablet by mouth at bedtime Finasteride 5 mg tablet Active 5 MG PO Bedtime August 15, 2024 11:00pm Start: 01-08-2024 End: 03-12-2024 Finasteride 5 mg tablet Disc ontinued 5 MG PO January 08, 2024 12:00am March 12, 2024 3:28pm Start: 10-31-2021 take 1 tablet by sarah th once daily finasteride 5 mg Tab 5 mg = 1 tab(s), Oral, Daily, # 90 tab(s), Refills(s) 3, Pharmacy: [facility], 152, cm, 04/19/22 10:18:00 EDT, Height/Length Dosing, 89.2, kg, 04/19/22 10:18:00 EDT, Weight Dosing Start Date: 02/12/23 Status: Ordered Finasteride Acti ve 24 hr metoprolol succinate 25 mg extended release oral tablet (20 sources) beta-Adrenergic Marilyn Start: 08-16-2024 take 2 tablets by mouth twice daily Metoprolol Succinate 25 mg tablet extended release 24 hr Active 12.5 MG PO Twice daily August 16, 2024 1:25pm Start: 08-16-2024 take 12.5 mg by mout h twice daily Metoprolol Succinate Active 12.5 MG PO Twice daily August 16, 2024 1:25pm Start: 06-07-2024 End: 08-16-2024 Metoprolol Succinate 25 mg t ablet extended release 24 hr Discontinued 0 .ROUTE .COMPLEX June 07, 2024 8:59am August 16, 2024 1:27pm TAKE 1 TABLET DAILY Start: 06-07-2024 End: 08-16-2024 Metoprolol Succinate Discont inued 0 .ROUTE .[facility] June 07, 2024 8:59am August 16, 2024 1:27pm TAKE 1 TABLET DAILY Start: 06-07-2024 End: 08-16-2024 Metoprolol Succinate Discont inued 0 .ROUTE .COMPLEX June 07, 2024 9:59am August 16, 2024 2:27pm TAKE 1 TABLET DAILY Start: 06-07-2024 Metoprolol Suc cinate Active 0 .ROUTE .COMPLEX June 07, 2024 9:59am TAKE 1 TABLET DAILY Start: 01-08-2024 End: 06-07-2024 take 1 tablet by mouth every twenty-four hours Metoprolol Succinate 25 mg tablet extended release 24 hr Discontinued MG PO January 08, 2024 12:00am June 07, 2024 8:59am Start: 01-08-2024 End: 06-07-2024 Metoprolol Succinate Discont inued MG PO January 08, 2024 12:00am June 07, 2024 8:59am Start: 10-31-2021 take 25 mg by mouth [...] hours tamsulosin hydrochloride 0.4 mg oral capsule (20 sources) alpha-Adrenergic Marilyn Start: 03-15-2024 take 1 capsule by mouth once daily Tamsulosin 0.4 mg capsule Active 0.4 MG PO Daily March 14, 2024 11:00pm Start: 01-08-2024 End: 03-12-2024 Tamsulosin 0.4 mg capsule Discontinued MG PO January 08, 2024 12:00am March 12, 2024 3:28pm Start: 01-08-2024 End: 03-12-2024 Tamsulosin Discontinued MG P O January 08, 2024 12:00am March 12, 2024 3:28pm Start: 08-25-2023 take 1 capsule by mo [facility] once daily tamsulosin 0.4 mg Cap 0.4 mg = 1 cap(s), Oral, Daily, # 90 cap(s), Refills(s) 3, Pharmacy: [facility], 178, cm, 08/25/23 12:26:00 EDT, Height/Length Dosing, 90, kg, 08/25/23 12:26:00 EDT, Weight Dosing Start Date: 08/25/23 Status: Ordered take 1 capsule by mo [facility] every twenty-four hours torsemide 20 mg oral tablet (20 sources) Loop Diuretic Start: 10-25-2024 Torsemide 20 m g tablet Active 0 .ROUTE .COMPLEX October 25, 2024 7:37am TAKE 1 TABLET DAILY Start: 10-05-2024 End: 10-25-2024 take 1 tablet by mouth once daily Torsemide 20 mg tablet Discontinued 20 MG PO Daily 08 19October 05, 2024 2:33pm October 25, 2024 7:37am Start: 09-20-2024 take 1 tablet by sarah once daily torsemide 20 mg Tab 20 mg = 1 tab(s), Oral, Daily, Refills(s) 0 Start Date: 09/20/24 Status: Ordered Start: 05-14-2024 End: 10-05-2024 take 1 tablet by mouth once daily Torsemide 20 mg tablet Discontinued 0 .ROUTE .COMPLEX May 18, 2024 10:37am October 05, 2024 2:34pm TAKE 1 TABLET BY MOUTH EVERY DAY Start: 04-19-2024 End: 05-14-2024 take 1 tablet by mouth once daily Torsemide 20 mg tablet Discontinued 20 MG PO Daily May 11, 2024 8:39am May 14, 2024 7:44am Completed/Discontinued Medications Medication Drug Class(es) Dates Sig (Normalized) Sig (Original) atorvastatin 80 mg oral tablet (20 sources) HMG-CoA Reductase Inhibitor Start: 09-21-2024 End: 10-05-2024 take 1 tablet by mouth once daily Atorvastatin 80 mg tablet Discontinued 80 MG PO Daily September 21, 2024 1:21pm October 05, 2024 2:34pm Start: 04-21-2023 End: 09-21-2024 take 1 tablet by mouth once daily in the evening Atorvastatin 10 mg tablet Discontinued 10 MG PO January 08, 2024 12:00am September 13, 2024 10:44pm FreeTextSig: TAKE 1 TABLET EVERY EVENING; Note: Source Status: Taking; Provider: Jenniffer Izquierdo ( ) clopidogrel 75 mg oral tablet (20 sources) [id number] Platelet Inhibitor Start: 05-17-2019 End: 02-27-2024 Clopidogrel 75 mg tablet Discontinued 75 MG PO January 08, 2024 12:00am February 27, 2024 12:30pm furosemide 40 mg oral tablet (13 sources) Loop Diuretic Start: 03-15-2024 End: 04-21-2024 take 1 tablet by mouth once daily Furosemide 40 mg tablet Discontinued 40 MG PO Daily March 14, 2024 11:00pm April 21, 2024 8:59am hydroCHLOROthiazide 12.5 mg oral tablet (20 sources) Thiazide Diuretic Start: 01-08-2024 End: 04-26-2024 take 1 tablet by mouth once daily in the morning Hydrochlorothiazide 12.5 mg tablet Discontinued 1 TAB PO Daily January 08, 2024 12:00am April 26, 2024 2:04pm FreeTextSi tablet in the morning Orally Once a day; Note: Source Status: Taking; Provider: Jenniffer Izquierdo ( ) Start: 08-25-2023 take 1 capsule by mo uth once daily hydrochlorothiazide 12.5 mg Cap 12.5 mg = 1 cap(s), Oral, Daily, # 90 cap(s), Refills(s) 3, Pharmacy: [facility], 178, cm, 08/25/23 12:26:00 EDT, Height/Length Dosing, 90, kg, 08/25/23 12:26:00 EDT, Weight Dosing Start Date: 08/25/23 Status: Ordered Start: 12-28-2021 take 1 capsule by mo uth once daily hydrochlorothiazide 12.5 mg Cap 12.5 mg = 1 cap(s), Oral, Daily, # 90 cap(s), Refills(s) 3, Pharmacy: [facility], 152, cm, 08/27/21 10:12:00 EDT, Height/Length Dosing, 89, kg, 08/27/21 10:12:00 EDT, Weight Dosing Start Date: 12/28/21 Status: Ordered Start: 10-31-2021 take 12.5 mg by mout h once daily Hydrochlorothiazide Active 12.5 MG PO Daily October 31, 2021 1:00am Potassium Chloride (20 sources) Start: 09-20-2024 Potassium Chlo ride (Hqi-Stdv-Hil M10) 10 mEq oral tablet, extended release 10 mEq = 1 tab(s), Refills(s) 0 Start Date: 09/20/24 Status: Ordered Start: 03-15-2024 End: 06-30-2024 Potassium Chloride (Klor-Con M10) 10 mEq tablet,ER particles/crystals Active 10 MEQ PO Daily 90 90 June 30, 2024 9:34am Problems Active Problems Problem Classification Problem Date Documented Date Episodic/Chronic Acquired foot deformities (17 sources) Foot drop, left foot; Translations: [Foot-drop] Episodic Adjustment disorders (5 sources) 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; Translations: [Mixed disorders as reaction to stress] Onset: 09-15-2018 Chronic Calculus of urinary tract (20 sources) Kidney stone; Translations: [Calculus of kidney] Onset: 07-22-2016 Episodic Chronic kidney disease (20 sources) Chronic kidney disease; Translations: [Chronic kidney disease, unspecified] 03-13-2024 Chronic Congestive heart failure; nonhypertensive (20 sources) Chronic diastolic (congestive) heart failure; Translations: [Acute on chronic diastolic (congestive) heart failure] Onset: 12-17-2023 Chronic Comment on above: Echo: LVEF 60-65%, n ormal RV size/function, LAE, diastolic dysfunction, mild MS, Mild - 03/2024 Coronary atherosclerosis and other heart disease (20 sources) Coronary arteriosclerosis; Translations: [Atherosclerotic heart disease of [place] coronary artery without angina pectoris] Onset: 09-15-2018 05-17-2019 Chronic Comment on above: CABG x - 2014 ,Lexiscan Stress: no fixed or reversible defect - 08/2024 Coronary atherosclerosis and other heart disease (3 sources) Presence of aortocoronary bypass graft; Translations: [Aortocoronary bypass status] 10-26-2024 Episodic Disorders of lipid metabolism (20 sources) Pure hypercholesterolemia; Translations: [Pure hypercholesterolemia, unspecified] Onset: 09-15-2018 Chronic Diverticulosis and diverticulitis (5 sources) Diverticulitis of colon; Translations: [Diverticulitis of intestine, part unspecified, without perforation or abscess without bleeding] Onset: 09-15-2018 Chronic Esophageal disorders (3 sources) Gastroesophageal reflux disease 05-17-2019 Chronic Essential hypertension (20 sources) Hypertensive disorder; Translations: [Essential (primary) hypertension] 03-13-2024 Chronic Heart valve disorders (20 sources) History of aortic valve replacement; Translations: [Presence of prosthetic heart valve] Onset: 07-09-2022 Chronic Hyperplasia of prostate (20 sources) Benign prostatic hypertrophy with outflow obstruction; Translations: [Benign prostatic hyperplasia with lower urinary tract symptoms] Onset: 10-27-2015 Chronic Miscellaneous mental health disorders (17 sources) Male erectile disorder; Translations: [Erectile dysfunction] Onset: 04-19-2022 Chronic Mood disorders (18 sources) Mild recurrent major depression; Translations: [Major depressive disorder, recurrent, mild] Onset: 09-18-2018 Chronic Occlusion or stenosis of precerebral arteries (20 sources) Bilateral stenosis of carotid arteries; Translations: [Occlusion and stenosis of bilateral carotid arteries] Onset: 09-18-2018 Resolved: 04-29-2022 Chronic Comment on above: US: left < 50%, righ t 65-70% - 04/2024 Other aftercare (9 sources) H/O: high risk medication; Translations: [Other senior care (current) drug therapy] Episodic Other aftercare (5 sources) Long-term current use of drug therapy; Translations: [Other long term acute care registered nurse (current) drug therapy] Episodic Other and unspecified [...] cerumen, left ear] Episodic Other endocrine disorders (3 sources) Male hypogonadism 05-17-2019 Chronic Other injuries and conditions due to external causes (5 sources) History of fall; Translations: [History of falling] Episodic Other male genital disorders (3 sources) Impotence 05-17-2019 Chronic Other nutritional; endocrine; and metabolic disorders (4 sources) Overweight; Translations: [Overweight] Episodic Other nutritional; endocrine; and metabolic disorders (4 sources) Overweight; Translations: [Overweight] Episodic Other screening for suspected conditions (not mental disorders or infectious disease) (13 sources) Encounter for screening for malignant neoplasm of colon; Translations: [Raised TSH level] Onset: 09-18-2018 04-07-2024 Episodic Peripheral and visceral atherosclerosis (20 sources) 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; Translations: [Atherosclerosis of [place] arteries of extremities with intermittent claudication, bilateral legs] Onset: 09-15-2018 Chronic Comment on above: CHING: right 0.9, left 0.8 - 08/2023,CHING: right 0.65, left 0.55 - 08/2024 Residual codes; unclassified (3 sources) H/O: anticoagulant therapy 05-17-2019 Episodic Residual codes; unclassified (11 sources) Past history of procedure; Translations: [Other specified postprocedural states] 05-06-2024 Episodic Residual codes; unclassified (2 sources) Other specified postprocedural states; Translations: [Other postprocedural status] 05-06-2024 Episodic Screening and history of mental health and substance abuse codes (13 sources) Ex-smoker; Translations: [History of tobacco use] Onset: 09-15-2018 05-17-2019 Episodic Spondylosis; intervertebral disc disorders; other back problems (20 sources) Lumbar spondylosis with myelopathy; Translations: [Other spondylosis with myelopathy, lumbar region] Chronic Spondylosis; intervertebral disc disorders; other back problems (18 sources) Backache; Translations: [Unspecified backache] Onset: 09-15-2018 01-08-2024 Episodic Sprains and strains (5 sources) Low back strain; Translations: [Strain of muscle, fascia and tendon of lower back, initial encounter] Episodic Past or Other Problems Problem Classification Problem [...] to blood loss (chronic)] Resolved: 07-13-2021 Chronic Genitourinary symptoms and ill-defined conditions (20 sources) Delay when starting to pass urine; Translations: [Increased frequency of urination] Onset: 07-22-2016 Resolved: 04-16-2019 05-17-2019 Episodic Immunizations and screening for infectious disease (6 sources) Suspected disease caused by 2019-nCoV; Translations: [Suspected COVID-19 virus infection] Onset: 02-19-2019 11-04-2021 Episodic Inflammatory conditions of male genital organs (3 sources) Prostatitis Resolved: 05-17-2019 05-17-2019 Episodic Malaise and fatigue (5 sources) Malaise and fatigue; Translations: [Other malaise and fatigue] Onset: 02-19-2019 Episodic Mood disorders (1 source) Mood disorders; Translations: [Major depressive disorder, recurrent episode, mild] Onset: 09-18-2018 Other aftercare (5 sources) Other senior care (current) drug therapy; Translations: [OTH ALF CURRENT [...] Orthopnea; Translations: [Orthopnea] Onset: 09-15-2018 Episodic Other upper respiratory infections (7 sources) Viral upper respiratory tract infection; Translations: [Acute upper respiratory infection, unspecified] Onset: 07-14-2019 04-12-2023 Episodic Residual codes; unclassified (5 sources) H/O: risk factor; Translations: [Other specified personal history presenting hazards to health] Onset: 09-15-2018 Episodic Unclassified (1 source) Personal history of other diseases of digestive disease; Translations: [Personal history of other diseases of digestive disease] Onset: 09-15-2018 Unclassified (1 source) Unspecified backache; Translations: [Unspecified backache] Onset: 09-15-2018 Results Test Name Value Interpretation Reference Range Facility US art pvr/post Yadi 025 US art pvr/post [facility] [place] [address] Ultrasound Report Signed with Tracie Patient: Max Brady MR#: [id number] 11 : 1940 Acct:[id number] Age/Sex: 84 / M ADM Date: 12/07/24 Loc: Room: Type: [facility] Attending Dr: Niya Baker SOFTWARE INTEGRATOR-C Ordering Provider: Niya Baker APRN Date of Service: 12/07/24 US/US art pvr/post LE: I70.213 - Atherosclerosis of [place] arteries of extremiti... Copies to: Niya Baker, VOCATIONAL EXAMINER ADDENDUM 1 The right lower extremity exhibited severe disease and critical limb ischemia with ambulation. The right lower extremity CHING dropped to 0.32 during the exercise study. This is considered severe ischemia. Impression dictated by: Jaylon Finnegan MD12/15/2024 5:07 PM Dictation Location: [place] [address] Addendum Dictated By: Jaylon Finnegan MD Addendum Signed By: 12/15/241706 Addendum Cosigned By: DD/ /03/1705 TD/TT: 12/15/2404/03/1707 LOWER EXTREMITY SEGMENTAL ARTERIAL DOPSCAN (PVR) INDICATION: Severe right leg claudication and return stenoses suspected. PROCEDURE: Right arm blood pressure is 106 ,106 , left is 119 . Pressures throughout the right leg are 87 at the high thigh, 111 at the low thigh, 68 at the calf, 82 at the ankle using the posterior tibial artery and 76 at the ankle using the dorsalis pedis artery with ankle-brachial index of 0.64 0.69 . Pressures throughout the left leg are 143 at the high thigh, 158 at the low thigh, 131 at the calf, 126 at the ankle using the posterior tibial artery and 107 at the ankle using the dorsalis pedis artery with ankle-brachial index of 0.90 1.06 . Wave forms by plethysmography are s biphasic in the right lower extremity and triphasic in the left lower extreme and. 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 Impression dictated by: Jaylon Finnegan MD12/08/2024 11:26 AM Dictation Location: [place] [address] Tech: Sugey Diaz Transcribed By: DANIEL 12/08/24 1126 Dictated By: Jaylon Finnegan MD 12/08/24 1122 Signed By: 12/08/24 1126 Normal [facility] US UNI ankle/arm indiceson 1 12-20-2023 US UNI ankle/arm indices [facility] Main [place] [address] [place] [address] Ultrasound Report Signed Patient: Max Brady MR#: [id number] 11 : 1940 Acct:[id number] Age/Sex: 84 / M ADM Date: 10/18/24 Loc: Room: Type: [facility] Attending Dr: Jaylon Finnegan MD Ordering Provider: Jaylon Finnegan MD Date of Service: 10/18/24 US/US UNI ankle/arm indices: New post procedure study, right leg only please. Copies to: Jaylon Finnegan MD Right ankle brachial indices Indication for study: Peripheral vascular occlusive disease status post endovascular intervention PROCEDURE: The right arm blood pressure is not obtained. The left arm blood pressure is 107 mmHg. At the right ankle the posterior tibial pressure is 111 with an ankle-brachial index of 1.04. The dorsalis pedis pressure is 100 mmHg with an ankle-brachial index of 0.93. Waveforms by plethysmography are strongly pulsatile. US/US UNI ankle/arm indices IMPRESSION: No hemodynamically significant peripheral vascular occlusive disease of the right lower extremity at rest. Significant improvement in ankle-brachial index from the prior study. Impression dictated by: Ricky Stephens M.D.10/19/2024 10:37 AM Dictation Location: [place] [address] Tech: Pam Richardsguzman Transcribed By: DANIEL 10/19/24 1037 Dictated By: Ricky Stephens MD 10/19/24 1035 Signed By: 10/19/24 1037 Normal [facility] Blood Urea Nitrogenon 2023 Urea nitrogen [Mass/Vol] 21 mg/dL Normal 06-03 [facility] Comment on above: Performed By: #### C REAT, BUN #### [facility] [address] [place] [address] [place] Creatinineon 10-04-2024 Creatinine [Mass/Vol] 1.40 mg/dL High 0.70-1.30 [facility] Comment on above: Performed By: #### C REAT, BUN #### [facility] [address] [place] [address] [place] Creatinine Clr Calc Pharmacy 45.56 Normal [facility] Comment on above: Result Comment: PERF ORMED BY: [place] [address] PATHOLOGIST MANGLE CATCHER DK JONES M.D. Performed By: #### C REAT, BUN #### [address] Estimated GFR 50.182 mL/Min Normal [facility] Comment on above: Performed By: #### C REAT, BUN #### [address] Creatinine [Mass/volume] in Serum or PlasmaOrdered By: Jaylon Finnegan on 10-04-2024 Creatinine [Mass/Vol] Creatinine [Mass/volume] in Serum or Plasma High 0.70-1.30 [facility] No Panel InformationOrdered By: Jaylon Finnegan on 10-04-2024 Estimated GFR (CKD-EPI) 50.182 mL/Min [facility] Creatinine Clearance (Chem 45.56 [facility] US UNI ankle/arm indiceson 1 12-04-2023 US UNI ankle/arm indices [facility] [place] [address] Ultrasound Report Signed Patient: Max Brady MR#: [id number] 11 : 1940 Acct:[id number] Age/Sex: 84 / M ADM Date: 10/04/24 Loc: Room: Type: [facility] Attending Dr: Jaylon Finnegan MD Ordering Provider: Jaylon Finnegan MD Date of Service: 10/04/24 US/US UNI ankle/arm indices: New postprocedure study for the left leg only please. Copies to: Jaylon Finnegan MD LOWER EXTREMITY SEGMENTAL ARTERIAL DOPSCAN (PVR) INDICATION: New post procedure baseline study after left leg intervention. Previous CHING: Left lower extremity CHING prior to intervention was 0.55. PROCEDURE: Right arm blood pressure is 103 , left is 128 . Pressures at the left ankle are 129 using the posterior tibial artery, and 130 with ankle- brachial index of 1.01 1.02 . Wave forms by plethysmography are normal. US/US UNI ankle/arm indices IMPRESSION: NO HEMODYNAMICALLY SIGNIFICANT PERIPHERAL VASCULAR OCCLUSIVE DISEASE AT REST IN EITHER LOWER EXTREMITY. Significant improvement noted after intervention. Impression dictated by: Jaylon Finnegan MD10/04/2024 3:03 PM Dictation Location: [place] [address] Tech: Mercedes Bella Transcribed By: DANIEL 10/04/24 1503 Dictated By: Jaylon Finnegan MD 10/04/24 1502 Signed By: 10/04/24 1503 Normal [facility] Urea nitrogen [Mass/volume] in Serum or PlasmaOrdered By: Jaylon Finnegan on 10-04-2024 Urea nitrogen [Mass/Vol] Urea nitrogen [Mass/volume] in Serum or Plasma 06-03 [facility] Urology Office/Clinic Noteon 09-20-2024 Urology Office/Clinic Note Urology Office/Clinic Note Chief Complaint 1yr f/u KUB HPI Staff 84 yo male here for 1 year f/up with KUB. Previous dx: kidney stone and BPH w/ LUTS. Was taking HCTZ 12.5mg qd. - PCP advised pt not to take this anymore. Started on Flomax 0.4mg qd at last visit. KUB 09/13/24 [facility]. Dysuria: denies Incomplete bladder emptying: denies Hematuria: denies Frequency: currently on diuretic, about every 2hrs Urgency: yes Nocturia: not every night, but occasionally 1x a night Stream: good stream Leaking: denies Post void dripping: denies Wearing pads/ Depends: denies Urge incontinence: denies Stress incontinence:denies Incontinence without Sensory Awareness: denies Abdominal pain: denies Flank pain: denies History of Present Illness Tests reviewed: reviewed UA, KUB I have reviewed the previous health record information and history for this patient from Dr. Loya. I have reviewed and verified the staff HPI to be accurate for this encounter. Review of Systems PHQ Score Initial Depression Screen Score: 0 SCORE ROS - Provider Constitutional: denies weight loss, [...] HPI. Physical Exam Vitals & Measurements HR: 67(Peripheral) RR: 18 BP: 97/64 HT: 70 in HT: 178 cm WT: 90.7 kg WT: 199.959 lb BMI: 28.63 General Appearance: alert, no distress, well nourished, well developed male. Assessment/Plan 1. Kidney stone (N20.0: Calculus of kidney) KUB 08/30/20 - Stable R stones, largest measuring 5 mm over the LP. No L stones. S/p R ESWL 08/31/20. KUB 06/22/21 - Multiple small R stones changed in configuration from the prior exam suggesting interval lithotripsy. No L stones. KUB 04/18/22 - Multiple punctate R stones, stable. No L stones. KUB 04/16/23 - Right renal calculi, measuring up to 4 mm. No L sided stones. Image not viewable. S/p R ESWL 05/22/23. Metabolic Workup 07/22/23 - sodium in the urine was slightly elevated, volume is low. KUB 07/21/23 - Rt punctate nephrolithiasis KUB 09/13/24 TBH - Stable 5mm R nephrolith. No L renal stones. No longer taking HCTZ 12.5 mg qd per cardiology, was started on torsemide. No recent stone episodes. Reviewed imaging results. Advised pt stone appears stable. Can consider operative intervention but stone also has a chance of passing on its own. Risks/benefits of each option discussed. Pt prefers to hold off on operative intervention at this time. -Cont sx monitoring and increased fluid intake -F/u in 1 yr w/ KUB 2. BPH with urinary obstruction (N40.1: Benign prostatic hyperplasia with lower urinary tract symptoms) S/p TURP 2002. UA today negative for blood and infection. Taking Finasteride 5 mg qd. Restarted on Tamsulosin 0.4mg qd at prior OV. Denies any bother or concerns with urination. -Cont meds wo changes. Call for refills. Follow-up With When Contact Information REINIER HUSAIN, Salome Jaramillo, RAUL [facility] [address], [place] [address]- [phone] Additional Instructions: 1 yr w/ KUB Patient Education Kidney Stones, [id number]-[id number]-Zemo I, Babita Andrade, personally scribed for Dr. Loya on 09/20/2024 12:14:24. . Documentation recorded by the scribe, Babita Andrade, accurately reflects the services(s) I performed and decisions made by me. Authenticated by Dr. Loya on 09/20/2024 12:15:52. 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 Normal [facility] Comment on above: Result Comment: Elec tronically Signed By: REINIER HUSAIN, Salome Jaramillo\.franky\Date and Time Signed: 09/20/24 12:15 EST\.br\Electronically Co-Signed By: Babita Andrade\.br\Date and Time Co-Signed: 09/20/24 12:14 EST US art pvr/post Yadi 024 US art pvr/post LE [facility] Main [place] [address] [place] [id number] Ultrasound Report Signed Patient: Max Brady MR#: [id number] 11 : 1940 Acct:[id number] Age/Sex: 84 / M ADM Date: 08/26/24 Loc: Room: Type: [facility] CLI Attending Dr: Bertha Hutchins DO Ordering Provider: Bertha Hutchins DO Date of Service: 08/26/24 US/US art pvr/post LE: I70.213 - Atherosclerosis of [place] arteries of [facility]... Copies to: Bertha Hutchins DO LOWER EXTREMITY SEGMENTAL ARTERIAL DOPSCAN (PVR) INDICATION: Severe claudication PROCEDURE: Right arm blood pressure is 136 , left is 139 . Pressures throughout the right leg are 112 at the high thigh, 114 at the low thigh, 93 at the calf, 90, at the ankle using the posterior tibial artery and 86 at the ankle using the dorsalis pedis artery with ankle-brachial index of 0.62 0.65 . Pressures throughout the left leg are 139 at the high thigh, 103 at the low thigh, 86 at the calf, 77, at the ankle using the posterior tibial artery and 75 at the ankle using the dorsalis pedis artery with ankle-brachial index of 0.54 0.55 . Wave forms by plethysmography are biphasic, bilaterally. 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 With exercise, this patient did exhibit severe drop in blood flow to the left lower extremity with an CHING of 0.19. This is in the critical range. The right lower extremity the patient decreased is CHING to 0.32. Impression dictated by: Jaylon Finnegan MD08/27/2024 9:25 AM Dictation Location: [place] [address] Tech: Ashley Gonzalez Transcribed By: DANIEL 08/27/24924 Dictated By: Jaylon Finnegan MD 08/27/24921 Signed By: 08/27/24924 Normal [facility] NM charito perf SPECT rest stron 08-25-2024 NM charito perf SPECT rest str [facility] Main [address] [address] Nuclear Medicine Report Signed Patient: Max Brady MR#: [id number] 11 : 1940 Acct:[id number] Age/Sex: 84 / M ADM Date: 08/26/24 Loc: Room: Type: [facility] Attending Dr: Bertha Hutchins DO Copies to: DO Moni Worthington MD Ordering Provider: Bertha Hutchins DO Date of Service: 08/25/24 NM/NM charito perf SPECT rest str: I25.10 E78.00 REFERRING PHYSICIAN: Bertha Hutchins DO REASON FOR STUDY: Shortness of breath. PROCEDURE: The patient underwent 1-day rest/stress protocol. Rest images obtained by injecting 6.6 mCi of Cardiolite. Stress images obtained by injecting 19.1 mCi of Cardiolite. Subsequently, gated SPECT and ejection fraction studies were performed. IMAGING RESULT: This appears to be a fair study. There is no clear pattern of ischemia or myocardial infarction. Left ventricular ejection fraction appears normal and calculated at 80%. TID index normal at 1.11. CONCLUSION: 1. Normal myocardial perfusion study. 2. No ischemia or myocardial infarction. 3. Normal left ventricular systolic function and wall motion. 4. No previous study available for comparison. Transcribed By: DUSTIN 08/25/24 2248 Dictated By: Moni Armstrong MD 08/25/24 1744 Signed By: 08/30/24 1220 Normal [facility] STR cardiac stress/lexiscano n 08-25-2024 STR cardiac stress/lexiscan [facility] Main [address] [address] Cardiac Stress Test Signed Patient: Max Brady MR#: [id number] 11 : 1940 Acct:[id number] Age/Sex: 84 / M ADM Date: 08/26/24 Loc: UL Room: Type: [facility] Attending Dr: Bertha Hutchins DO Copies to: DO Moni Worthington MD Ordering Provider: Bertha Hutchins DO Date of Service: 08/25/24 STR/STR cardiac stress/lexiscan: I25.10 - Atherosclerotic heart disease of [place] coronary... REFERRING PHYSICIAN: Bertha Hutchins DO REASON FOR STUDY: Coronary artery disease and shortness of breath. PROCEDURE: The patient underwent Lexiscan myocardial perfusion study. The patient was injected with 0.4 mg of Lexiscan, following which no symptoms reported. Blood pressure and heart response to Lexiscan was physiologic. Baseline ECG showed normal sinus rhythm with nonspecific ST-T changes. Following Lexiscan, no changes were seen. CONCLUSION: 1. Lexiscan myocardial perfusion study without diagnostic ST-T changes for ischemia. 2. No provoked chest pain or arrhythmia. 3. Appropriate hemodynamic response to Lexiscan. 4. Myocardial perfusion study will be dictated separately. Transcribed By: DUSTIN 08/26/24 1601 Dictated By: Moni Armstrong MD 08/25/24 1721 Signed By: 08/30/24 1220 Normal [facility] FPG ECG *CARDIOLOGY ONLY*on 08-16-2024 FPG ECG *CARDIOLOGY ONLY* [facility] [place] [address] Electrocardiograph Report Signed Patient: Max Brady MR#: [id number] 11 : 1940 Acct:[id number] Age/Sex: 84 / M ADM Date: 08/16/24 Loc: EKGCARDIO Room: Type: [facility] Attending Dr: Bertha Hutchins DO Ordering Provider: Bertha Hutchins DO Date of Service: 08/16/2406/02/1415 ECG/FPG ECG *CARDIOLOGY ONLY*: I25.10 - Atherosclerotic heart disease of [place] coronary... Copies to: Test Reason : Blood Pressure : */* mmHG Vent. Rate : 78 BPM Atrial Rate : 78 BPM P-R Int : 232 ms QRS Dur : 84 ms QT Int : 404 ms P-R-T Axes : 43 27 20 degrees QTcB Int : 460 ms Sinus rhythm with 1st degree AV block Confirmed by Ila Thomas ([id number]) on 08/17/2024 10:25:55 AM Referred By: Electronically Signed By: Ila Thomas Transcribed By: MUS Signed By Ila Thomas MD 4 1025 Normal [facility] US carotid doppler BIon 04-11 US carotid doppler BI [facility] [address] [place] [address] Ultrasound Report Signed Patient: Max Brady MR#: [id number] 11 : 1940 Acct:[id number] Age/Sex: 83 / M ADM Date: 05/06/24 Loc: [facility] Room: Type: [facility] Attending Dr: Niya Baker SOFTWARE INTEGRATOR-C Ordering Provider: Niya Baker APRN Date of Service: 05/06/24 US/US carotid doppler BI: I65.23 Copies to: Niya Baker APRN CAROTID DUPLEX INDICATION: Surveillance study for left carotid stent placement. PROCEDURE: Color-flow duplex scanning is used to interrogate the extracranial carotid arterial system, as well as both vertebral arteries. Both carotid bifurcations show mild to moderate heterogeneous plaque formation. The proximal right internal carotid artery shows a highest peak systolic velocity of 198 cm/s with an end-diastolic velocity of 65.9 cm/s . The mid internal carotid artery measures 143 cm/s peak systolic and 58.1 cm/s end diastolic. The distal segment measures 81.4 cm/s peak systolic with an end diastolic velocity of 29.2 cm/s . The velocities of the right common carotid artery are 112 cm/s peak systolic and 22.4 cm/s end-diastolic proximally and 77.6 cm/s peak systolic and 19.7 cm/s end diastolic distally. The peak systolic velocity ratio of the internal to the common carotid artery is 2.55. The right external carotid artery measures 211 cm/s peak systolic. The right vertebral artery is patent at 144 cm/s with retro-grade flow. The proximal left internal carotid artery shows a highest peak systolic velocity of 115 cm/s with an end-diastolic velocity of 33.6 cm/s . The mid internal carotid artery measures 143 cm/s peak systolic and 39.2 cm/s end diastolic. The distal segment measures 56.5 cm/s peak systolic with an end diastolic velocity of 16.2 cm/s . The velocities of the left common carotid artery are 102 cm/s peak systolic and 23.6 cm/s end-diastolic proximally and 102 cm/s peak systolic and 26.7 cm/s end diastolic distally. The peak systolic velocity ratio of the internal to the common carotid artery is 1.4 . The left external carotid artery measures 149 cm/s peak systolic. The left vertebral artery is patent at 69.3 cm/s with antegrade flow. US/US carotid doppler BI IMPRESSION: MILD TO MODERATE PLAQUE FORMATION IS NOTED BILATERAL EXTRACRANIAL CAROTID ARTERIES. MODERATE STENOSIS OF 50-69% WAS FOUND IN the right internal carotid artery. The left internal carotid artery is normal. Impression dictated by: Jaylon Finnegan MD05/06/2024 2:24 PM Dictation Location: [place] [address] Tech: Merle Donaldson Transcribed By: DANIEL 05/06/24 1424 Dictated By: Jaylon Finnegan MD 05/06/24 1423 Signed By: 05/06/24 1424 Normal [facility] Estimated glomerular filtrat ion rate (GFR) non- Americanon 04-29-2024 GFR/1.73 sq M.predicted among non-blacks MDRD (S/P/Bld) [Vol rate/Area] 49 mL/min/{1.73_m2} Low >=60 [facility] Laboratory - Chemistry and C hemistry - challengeon 04-29-2024 Calcium [Mass/Vol] 9.2 mg/dL 8.5-10.1 [facility] Chloride [Moles/Vol] 99 mmol/L 98-107 [facility] CO2 [Moles/Vol] 31.3 mmol/L 21.0-32.0 [facility] Creatinine [Mass/Vol] 1.39 mg/dL High 0.70-1.30 [facility] GFR/1.73 sq M.predicted MDRD (S/P/Bld) [Vol rate/Area] 59 mL/min/{1.73_m2} Low >=60 [facility] Glucose [Mass/Vol] 94 mg/dL 74-106 [facility] Natriuretic peptide B (Bld) [Mass/Vol] 98.0 pg/mL <=1800.0 [facility] Potassium [Moles/Vol] 3.0 mmol/L Low 3.5-5.1 [facility] Sodium [Moles/Vol] 140 mmol/L 136-145 [facility] Urea nitrogen [Mass/Vol] 30.0 mg/dL High 7.0-18.0 [facility] Urea nitrogen/Creatinine [Mass ratio] 21.6 mg/mg [facility] Serum or plasma anion gap de terminationon 04-29-2024 Anion gap [Moles/Vol] 12.7 mmol/L [facility] Laboratory - Chemistry and C hemistry - challengeon 04-17-2024 Free T4 [Mass/Vol] 0.79 ng/dL 0.76-1.46 [facility] TSH Qn 5.269 m[IU]/L High 0.358-3.740 [facility] No Panel Informationon 04-17 Total Triiodothyronine 97 ng/dL 71-180 [facility] Comment on above: Performed at: [address] [id number] Director: Nadir Chavez PhD, Phone: [phone] Basophils Auto (Bld) [#/Vol] on 04-07-2024 Basophils (Bld) [#/Vol] 0.0 10 3/uL 0.0-0.1 [facility] Basophils/100 WBC Auto (Bld) on 04-07-2024 Basophils/100 WBC (Bld) 0.6 % 0.2-2.0 [facility] Cholesterol in LDL Calc [Mas s/Vol]on 04-07-2024 Cholesterol in LDL [Mass/Vol] 67.2 mg/dL [facility] Comment on above: <100 mg/dl [id number] 0-129 mg/dl NEAR OR ABOVE [id number] mg/dl BORDERLINE [id number] mg/dl HIGH>190 mg/dl VERY HIGH Cholesterol in VLDL Calc [Ma ss/Vol]on 04-07-2024 Cholesterol in VLDL [Mass/Vol] 23.8 mg/dL [facility] Eosinophils/100 WBC Auto (Bl d)on 04-07-2024 Eosinophils/100 WBC (Bld) 9.8 % High 0.9-7.0 [facility] Erythrocyte distribution wid th Auto (RBC) [Ratio]on 04-07-2024 Erythrocyte distribution width (RBC) [Ratio] 14.0 % 11.0-15.0 [facility] Estimated glomerular filtrat ion rate (GFR) non- Americanon 04-07-2024 GFR/1.73 sq M.predicted among non-blacks MDRD (S/P/Bld) [Vol rate/Area] 55 mL/min/{1.73_m2} Low >=60 [facility] Globulin Calc (S) [Mass/Vol] on 04-07-2024 Globulin (S) [Mass/Vol] 3.8 g/dL [facility] Hematocrit Auto (Bld) [Volum e fraction]on 04-07-2024 Hematocrit (Bld) [Volume fraction] 44.7 % 42.0-54.0 [facility] Hemoglobin [Mass/volume] in Bloodon 04-07-2024 Hemoglobin (Bld) [Mass/Vol] 14.3 g/dL 14.0-18.0 [facility] Laboratory - Chemistry and C hemistry - challengeon 04-07-2024 Albumin [Mass/Vol] 3.4 g/dL 3.4-5.0 [facility] ALP [Catalytic activity/Vol] 67 U/L 46-116 [facility] ALT [Catalytic activity/Vol] 22 U/L 16-63 [facility] AST [Catalytic activity/Vol] 20 U/L 15-37 [facility] Bilirubin [Mass/Vol] 1.0 mg/dL 0.2-1.0 [facility] Calcium [Mass/Vol] 8.9 mg/dL 8.5-10.1 [facility] Chloride [Moles/Vol] 103 mmol/L 98-107 [facility] Cholesterol [Mass/Vol] 150 mg/dL <=200 [facility] Cholesterol in HDL [Mass/Vol] 59 mg/dL 40-60 [facility] Comment on above: > or =60 mg/dl - LOW CARDIOVASCULAR RISK<40 mg/dl - HIGH CARDIOVASCULAR RISK CO2 [Moles/Vol] 29.8 mmol/L 21.0-32.0 [facility] Creatinine [Mass/Vol] 1.26 mg/dL 0.70-1.30 [facility] GFR/1.73 sq M.predicted MDRD (S/P/Bld) [Vol rate/Area] mL/min/{1.73_m2} >=60 [facility] Glucose [Mass/Vol] 109 mg/dL High 74-106 [facility] Natriuretic peptide B (Bld) [Mass/Vol] 104.0 pg/mL <=1800.0 [facility] Potassium [Moles/Vol] 3.4 mmol/L Low 3.5-5.1 [facility] Protein [Mass/Vol] 7.2 g/dL 6.4-8.2 [facility] Sodium [Moles/Vol] 140 mmol/L 136-145 [facility] Triglyceride [Mass/Vol] 119 mg/dL <=150 [facility] TSH Qn 8.383 m[IU]/L High 0.358-3.740 [facility] Urea nitrogen [Mass/Vol] 21.0 mg/dL High 7.0-18.0 [facility] Urea nitrogen/Creatinine [Mass ratio] 16.7 mg/mg [facility] Laboratory - Hematology and Cell countson 04-07-2024 Immature granulocytes/100 WBC (Bld) 0.4 % 0.0-0.5 [facility] Leukocytes [#/volume] correc jose j for nucleated erythrocytes in Blood by Automated counon 04-07-2024 WBC corrected for nucl RBC Auto (Bld) [#/Vol] 5.2 10 3/uL 4.0-11.0 [facility] Lymphocytes Auto (Bld) [#/Vo l]on 04-07-2024 Lymphocytes (Bld) [#/Vol] 1.5 10 3/uL 1.2-3.8 [facility] Lymphocytes/100 WBC Auto (Bl d)on 04-07-2024 Lymphocytes/100 WBC (Bld) 28.6 % 20.5-60.0 [facility] MCH Auto (RBC) [Entitic mass ]on 04-07-2024 MCH (RBC) [Entitic mass] 30.2 pg 25.9-34.0 [facility] MCHC Auto (RBC) [Mass/Vol]on 04-07-2024 MCHC (RBC) [Mass/Vol] 32.0 g/dL 29.9-35.2 [facility] MCV Auto (RBC) [Entitic vol] on 04-07-2024 MCV (RBC) [Entitic vol] 94.5 fL High 80.0-94.0 [facility] Monocytes Auto (Bld) [#/Vol] on 04-07-2024 Monocytes (Bld) [#/Vol] 0.6 10 3/uL 0.3-0.8 [facility] Monocytes/100 WBC Auto (Bld) on 04-07-2024 Monocytes/100 WBC (Bld) 11.7 % 1.7-12.0 [facility] Neutrophils Auto (Bld) [#/Vo l]on 04-07-2024 Neutrophils (Bld) [#/Vol] 2.6 10 3/uL 1.4-6.5 [facility] Neutrophils/100 WBC Auto (Bl d)on 04-07-2024 Neutrophils/100 WBC (Bld) 48.9 % 43.0-75.0 [facility] No Panel Informationon 04-07 Eosinophils # (Auto) 0.5 10 3/uL 0.0-0.7 [facility] Immature Granulocyte # (Auto) 0.02 10 3/uL 0.00-0.03 [facility] Platelet mean volume Auto (B ld) [Entitic vol]on 04-07-2024 Platelet mean volume (Bld) [Entitic vol] 11.2 fL 9.5-13.5 [facility] Platelets Auto (Bld) [#/Vol] on 04-07-2024 Platelets (Bld) [#/Vol] 196 10 3/uL 150-450 [facility] RBC Auto (Bld) [#/Vol]on RBC (Bld) [#/Vol] 4.73 10 6/uL 4.70-6.10 [facility] Serum or plasma albumin/glob ulin mass ratioon 04-07-2024 Albumin/Globulin [Mass ratio] 0.9 {ratio} [facility] Serum or plasma anion gap de terminationon 04-07-2024 Anion gap [Moles/Vol] 10.6 mmol[facility]L [facility] Serum or plasma total choles terol/high density lipoprotein (HDL) cholesterol mass dejah 04-07-2024 Cholesterol.total/Cholest jose elias in HDL [Mass ratio] 2.5 {ratio} [facility] Comment on above: 3.3 - 4.4 LOW RISK4. 4 - 7.1 AVERAGE RISK7.1 - 11.0 MODERATE RISK>11.0 HIGH RISK 37on 01-15-2024 37 *You can take lasix as needed. Take if you develop worsening shortness of breath, abdominal bloating, leg swelling, or weight gain of 2-3lbs in a day or 5lbs in a week. Can take for 3 days or until weight or symptoms improve. *When you take lasix, take potassium with it. *Follow-up with vascular in [place] for your leg weakness and pain [facility] Office Visiton 01-15-2024 Follow-up visit [id number] BradyMax 1940 M Date Provider Department Center 01/15/2024 TITA STEWART [facility] Family History Problem Relation Age of Onset No Known Problems Mother No Known Problems Father Family Status - Relation Status Age at Mother Father Level of Service:21442 [place] OFFICE/OUTPATIENT ESTABLISHED MOD MDM 30 MIN Reason for Visit and Comments: Coronary Artery Disease [187] Congestive Heart Failure [127] Hypertension [107652] Hyperlipidemia [182] [facility] 36on 01-05-2024 36 Regarding labs from 12/26/2023: SANG Dumont MA Please let him know his labs show his kidney function is stable. Continue current meds. Thanks LM on patient's VM. [facility] Estimated glomerular filtrat ion rate (GFR) non- Americanon 12-26-2023 GFR/1.73 sq M.predicted among non-blacks MDRD (S/P/Bld) [Vol rate/Area] 58 mL/min/{1.73_m2} >=60 [facility] Laboratory - Chemistry and C hemistry - challengeon 12-26-2023 Calcium [Mass/Vol] 9.3 mg/dL 8.5-10.1 [facility] Chloride [Moles/Vol] 101 mmol/L 98-107 [facility] CO2 [Moles/Vol] 28.4 mmol/L 21.0-32.0 [facility] Creatinine [Mass/Vol] 1.21 mg/dL 0.70-1.30 [facility] GFR/1.73 sq M.predicted MDRD (S/P/Bld) [Vol rate/Area] mL/min/{1.73_m2} >=60 [facility] Glucose [Mass/Vol] 117 mg/dL 74-106 [facility] Potassium [Moles/Vol] 3.9 mmol/L 3.5-5.1 [facility] Sodium [Moles/Vol] 138 mmol/L 136-145 [facility] Urea nitrogen [Mass/Vol] 19.0 mg/dL 7.0-18.0 [facility] Urea nitrogen/Creatinine [Mass ratio] 15.7 mg/mg [facility] Serum or plasma anion gap de terminationon 12-26-2023 Anion gap [Moles/Vol] 12.5 mmol/L [facility] 37on 12-17-2023 37 *Start taking lasix 40mg daily along with potassium supplements. *Have labs done around 12/26/2023. *Monitor your weight daily, first thing in the morning after you use the bathroom and before you eat breakfast. *Try to not drink more than 2000ml of fluids a day *Limit sodium/salt intake Normal [facility] Office Visiton 12-17-2023 Follow-up visit [id number] Max Brady 1940 M Date Provider Department Center 12/17/2023 TITA STEWART [facility] Family History Problem Relation Age of Onset No Known Problems Mother No Known Problems Father Family Status - Relation Status Age at Mother Father Level of Service:33099 [place] OFFICE/OUTPATIENT ESTABLISHED MOD MDM 30 MIN Normal [facility] Laboratory - Microbiology an d Antimicrobial susceptibilityOrdered By: Aury Ann on 04-12-2023 S. pyogenes Ag IA Ql (Unsp spec) [facility] No Panel InformationOrdered By: Aury Ann on 04-12-2023 Flu B [facility] CBC AUTO DIFFon 09-25-2022 BASO # 0.0 103/ul Normal 0.0-0.1 [facility] Comment on above: Performed By: #### C BC #### [facility] [address] [place] [address] Dr. Giacomo Mace Basophils/100 WBC (Bld) 0.5 % Normal 0.2-2.0 [facility] Comment on above: Performed By: #### C BC #### [facility] [address] [place] [address] Dr. Giacomo Mace EO # 0.4 103/ul Normal 0.0-0.7 [facility] Comment on above: Performed By: #### C BC #### [facility] [address] [place] [address] Dr. Giacomo Mace Eosinophils/100 WBC (Bld) 7.0 % Normal 0.9-7.0 [facility] Comment on above: Performed By: #### C BC #### [facility] [address] [place] [address] Dr. Giacomo Mace Erythrocyte distribution width (RBC) [Ratio] 14.6 % Normal 11.0-15.0 [facility] Comment on above: Performed By: #### C BC #### [facility] [address] [place] [address] Dr. Giacomo Mace Hematocrit (Bld) [Volume fraction] 46.9 % Normal 42.0-54.0 [facility] Comment on above: Performed By: #### C BC #### [facility] [address] [place] [address] Dr. Giacomo Mace Hemoglobin (Bld) [Mass/Vol] 15.1 g/dL Normal 14.0-18.0 [facility] Comment on above: Performed By: #### C BC #### [facility] [address] [place] [address] Dr. Giacomo Mace IG # 0.02 10e3/ul Normal 0.00-0.03 [facility] Comment on above: Performed By: #### C BC #### [facility] [address] [place] [address] Dr. Giacomo Mace IG % 0.4 % Normal 0.0-0.5 [facility] Comment on above: Performed By: #### C BC #### [facility] [address] [place] [address] Dr. Giacomo Mace LYMPH # 1.4 103/ul Normal 1.2-3.8 [facility] Comment on above: Performed By: #### C BC #### [facility] [address] [place] [address] Dr. Giacomo Mace Lymphocytes/100 WBC (Bld) 25.3 % Normal 20.5-60.0 [facility] Comment on above: Performed By: #### C BC #### [facility] [address] [place] [address] Dr. Giacomo Mace MANUAL DIFF REQ NO Normal [facility] Comment on above: Performed By: #### C BC #### [facility] [address] [place] [address] Dr. Giacomo Mace MCH (RBC) [Entitic mass] 29.6 pg Normal 25.9-34.0 [facility] Comment on above: Performed By: #### C BC #### [facility] [address] [place] [address] Dr. Giacomo Mace MCHC (RBC) [Mass/Vol] 32.2 g/dL Normal 29.9-35.2 [facility] Comment on above: Performed By: #### C BC #### [facility] [address] [place] [address] Dr. Giacomo Mace MCV (RBC) [Entitic vol] 92.0 fL Normal 80.0-94.0 [facility] Comment on above: Performed By: #### C BC #### [facility] [address] [place] [address] Dr. Giacomo Mace MONO # 0.6 103/ul Normal 0.3-0.8 [facility] Comment on above: Performed By: #### C BC #### [facility] [address] [place] [address] Dr. Giacomo Mace Monocytes/100 WBC (Bld) 10.4 % Normal 1.7-12.0 [facility] Comment on above: Performed By: #### C BC #### [facility] [address] [place] [address] Dr. Giacomo Mace NEUT # 3.2 103/ul Normal 1.4-6.5 [facility] Comment on above: Performed By: #### C BC #### [facility] [address] [place] [address] Dr. Giacomo Mace Neutrophils/100 WBC (Bld) 56.4 % Normal 43.0-75.0 [facility] Comment on above: Performed By: #### C BC #### [facility] [address] [place] [address] Dr. Giacomo Mace Platelet mean volume (Bld) [Entitic vol] 10.5 fL Normal 9.5-13.5 [facility] Comment on above: Performed By: #### C BC #### [facility] [address] [place] [address] Dr. Giacomo Mace PLT 227 103/ul Normal 150-450 [facility] Comment on above: Performed By: #### C BC #### [facility] [address] [place] [address] Dr. Giacomo Mace RBC 5.10 106/ul Normal 4.70-6.10 [facility] Comment on above: Performed By: #### C BC #### [facility] [address] [place] [address] Dr. Giacomo Mace WBC 5.7 103/ul Normal 4.0-11.0 [facility] Comment on above: Performed By: #### C BC #### [facility] [address] [place], [place] [address] Dr. Giacomo Mace LIPID PROFILEon 09-25-2022 CHOL-HDL RATIO NORM SEE BELOW Normal [facility] Comment on above: Result Comment: 3.3 - 4.4 LOW RISK 4.4 - 7.1 AVERAGE RISK 7.1 - 11.0 MODERATE RISK >11.0 HIGH RISK Performed By: #### B MP, LIPID #### [facility] [address] [place], [place] [address] Dr. Giacomo Mace Cholesterol [Mass/Vol] 219 mg/dL Critically high <=200 [facility] Comment on above: Performed By: #### B MP, LIPID #### [facility] [address] [place] [address] [address] Giacomo Mace Cholesterol in HDL [Mass/Vol] 61 mg/dL Critically high 40-60 [facility] Comment on above: Performed By: #### B MP, LIPID #### [facility] [address] [place], [place] [address] Dr. Giacomo Mace Cholesterol in LDL [Mass/Vol] 136.4 mg/dL Normal [facility] Comment on above: Performed By: #### B MP, LIPID #### [facility] [address] [place], [place] [address] Dr. Giacomo Mace Cholesterol.total/Cholest jose elias in HDL [Mass ratio] 3.6 {ratio} Normal [facility] Comment on above: Performed By: #### B MP, LIPID #### [facility] [address] [place], [place] [address] Dr. Giacomo Mace HDL NORMAL > or = 60 mg/dl - LOW CARDIOVASCULAR RISK <40 mg/dl - HIGH CARDIOVASCULAR RISK Normal [facility] Comment on above: Performed By: #### B MP, LIPID #### [facility] [address] [place], [place] [address] Dr. Giacomo Mace LDL CALC NORMAL SEE BELOW Normal [facility] Comment on above: Result Comment: <100 mg/dl OPTIMAL 100 - 129 mg/dl NEAR OR ABOVE OPTIMAL 130 - 159 mg/dl BORDERLINE HIGH 160 - 189 mg/dl HIGH >190 mg/dl VERY HIGH Performed By: #### B MP, LIPID #### [facility] [address] [place] [address] Dr. Giacomo Mace Triglyceride [Mass/Vol] 108 mg/dL Normal <=150 [facility] Comment on above: Performed By: #### B MP, LIPID #### [facility] [address] [place] [address] Dr. Giacomo Mace VLDL CALC 21.6 mg/dL Normal [facility] Comment on above: Performed By: #### B MP, LIPID #### [facility] [address] [place] [address] Dr. Giacomo Mace PROF CHEM 8 (BAS METB)on Anion gap [Moles/Vol] 9.6 mmol/L Normal [facility] Comment on above: Performed By: #### B MP, LIPID #### [facility] [address] [place] [address] Dr. Giacomo Mace Calcium [Mass/Vol] 9.3 mg/dL Normal 8.5-10.1 [facility] Comment on above: Performed By: #### B MP, LIPID #### [facility] [address] [place] [address] Dr. Giacomo Mace Chloride [Moles/Vol] 104 mmol/L Normal 98-107 [facility] Comment on above: Performed By: #### B MP, LIPID #### [facility] [address] [place] [address] Dr. Giacomo Mace CO2 [Moles/Vol] 27.8 mmol/L Normal 21.0-32.0 [facility] Comment on above: Performed By: #### B MP, LIPID #### [facility] [address] [place] [address] Dr. Giacomo Mace Creatinine [Mass/Vol] 1.08 mg/dL Normal 0.70-1.30 [facility] Comment on above: Performed By: #### B MP, LIPID #### [facility] [address] [place] [address] Dr. Giacomo Mace EGFR-AF MARSHALLESE >60 Normal >=60 [facility] Comment on above: Performed By: #### B MP, LIPID #### [facility] [address] [place] [address] Dr. Giacomo Mace EGFR-NON AF MARSHALLESE >60 Normal >=60 [facility] Comment on above: Performed By: #### B MP, LIPID #### [facility] [address] [place] [address] Dr. Giacomo Mace Glucose [Mass/Vol] 111 mg/dL Critically high 74-106 [facility] Comment on above: Performed By: #### B MP, LIPID #### [facility] [address] [place] [address] Dr. Giacomo Mace Potassium [Moles/Vol] 4.4 mmol/L Normal 3.5-5.1 [facility] Comment on above: Performed By: #### B MP, LIPID #### [facility] [address] [place] [address] Dr. Giacomo Mace Sodium [Moles/Vol] 137 mmol/L Normal 136-145 [facility] Comment on above: Performed By: #### B MP, LIPID #### [facility] [address] [place] [address] Dr. Giacomo Mace Urea nitrogen [Mass/Vol] 27.0 mg/dL Critically high 7.0-18 .0 [facility] Comment on above: Performed By: #### B MP, LIPID #### [facility] [address] [place] [address] Dr. Giacomo Mace Urea nitrogen/Creatinine [Mass ratio] 25.0 mg/mg Normal [facility] Comment on above: Performed By: #### B MP, LIPID #### [facility] [address] [place] [address] Dr. Giacomo Mace ECHOCARDIO M/2D COMPLETEon 0 07-09-2022 ECHOCARDIO M/2D COMPLETE Patient: MAX BRADY Exam Date: 07/09/2022 : 1940 Gender:M Ordering : [facility] Admission #: [id number] Family : DR TIMBO BAIG D.O. Order #: [id number] CLICK HERE TO VIEW EXAM ECHOCARDIOGRAM REPORT [...] M.D. on 07/10/2022 at 14:46 Normal [facility] CPKon 04-27-2022 CK [Catalytic activity/Vol] 96 U/L Normal 39-308 [facility] Comment on above: Performed By: #### C RP, CK #### [facility] [address] [place] [address] [address] Giacomo Mace CRPon 04-27-2022 CRP [Mass/Vol] mg/L Normal <=1.0 [facility] Comment on above: Performed By: #### C RP, CK #### [facility] [address] [place] [address] [address] Giacomo Mace ELECTROLYTESon 04-18-2022 Anion gap [Moles/Vol] 11.8 mmol/L Normal [facility] Comment on above: Performed By: #### E LEC #### [facility] [address] [place] [address] Dr. Giacomo Mace Chloride [Moles/Vol] 104 mmol/L Normal 98-107 [facility] Comment on above: Performed By: #### E LEC #### [facility] [address] [place] [address] Dr. Giacomo Mace CO2 [Moles/Vol] 27.5 mmol/L Normal 21.0-32.0 [facility] Comment on above: Performed By: #### E LEC #### [facility] [address] [place] [address] [address] Giacomo Mace Potassium [Moles/Vol] 4.3 mmol/L Normal 3.5-5.1 [facility] Comment on above: Performed By: #### E LEC #### [facility] [address] [place] [address] Dr. Giacomo Mace Sodium [Moles/Vol] 139 mmol/L Normal 136-145 [facility] Comment on above: Performed By: #### E LEC #### [facility] [address] [place] [address] [address] Giacomo Mace XR KUB 1 VIEWon [...] Time Vital Sign Value Performing Clinician Facility 12-29-2024 10:21-0500 Body height 177.8 cm [employer] Work Phone: [facility] 12-29-2024 10:21-0500 Body mass index (BMI) [Ratio] 27.2 kg/m2 [employer] DO Work Phone: [facility] 12-29-2024 10:21-0500 Body temperature 96.1 [degF] Timbo [employer] DO Work Phone: [facility] 12-29-2024 10:21-0500 Body weight 86.18 kg [employer] DO Work Phone: [facility] 12-29-2024 10:21-0500 Diastolic blood pressure 60 mm[Hg] Timbo [employer] DO Work Phone: [facility] 12-29-2024 10:21-0500 Heart rate 47 /min [employer] DO Work Phone: [facility] 12-29-2024 10:21-0500 SaO2% (BldA) [Mass fraction] 96 % [employer] DO Work Phone: [facility] 12-29-2024 10:21-0500 Systolic blood pressure 102 mm[Hg] [employer] DO Work Phone: [facility] 11-25-2024 10:32-0500 Body height 177.8 cm Timbo Ball DO Work Phone: [facility] 11-25-2024 10:32-0500 Body mass index (BMI) [Ratio] 28.1 kg/m2 Timbo Ball DO Work Phone: [facility] 11-25-2024 10:32-0500 Body temperature 97.8 [degF] Timbo Ball DO Work Phone: [facility] 11-25-2024 10:32-0500 Body weight 88.9 kg Timbo Ball DO Work Phone: [facility] 11-25-2024 10:32-0500 Diastolic blood pressure 66 mm[Hg] Timbo Ball DO Work Phone: [facility] 11-25-2024 10:32-0500 Heart rate 74 /min Timbo Ball DO Work Phone: [facility] 11-25-2024 10:32-0500 Systolic blood pressure 124 mm[Hg] Timbo Ball DO Work Phone: [facility] 10-28-2024 15:02-0500 Body height 177.8 cm Timbo Ball DO Work Phone: [facility] 10-28-2024 15:02-0500 Body mass index (BMI) [Ratio] 28.1 kg/m2 Timbo Ball DO Work Phone: [facility] 10-28-2024 15:02-0500 Body weight 88.96 kg Timbo Ball DO Work Phone: [facility] 10-28-2024 15:02-0500 Diastolic blood pressure 78 mm[Hg] Timbo Ball DO Work Phone: [facility] 10-28-2024 15:02-0500 Heart rate 69 /min Timbo Ball DO Work Phone: [facility] 10-28-2024 15:02-0500 Respiratory rate 12 /min Timbo Ball DO Work Phone: [facility] 10-28-2024 15:02-0500 Systolic blood pressure 123 mm[Hg] Timbo Ball DO Work Phone: [facility] 10-26-2024 09:00-0500 Body height 177.8 cm Timbo Ball DO Work Phone: [facility] 10-26-2024 09:00-0500 Body mass index (BMI) [Ratio] 28.3 kg/m2 Timbo Ball DO Work Phone: [facility] 10-26-2024 09:00-0500 Body weight 89.35 kg Timbo Ball DO Work Phone: [facility] 10-26-2024 09:00-0500 Diastolic blood pressure 70 mm[Hg] Timbo Ball DO Work Phone: [facility] 10-26-2024 09:00-0500 Heart rate 73 /min Timbo Ball DO Work Phone: [facility] 10-26-2024 09:00-0500 Respiratory rate 18 /min Timbo Ball DO Work Phone: [facility] 10-26-2024 09:00-0500 SaO2% (BldA) [Mass fraction] 96 % Timbo Ball DO Work Phone: [facility] 10-26-2024 09:00-0500 Systolic blood pressure 120 mm[Hg] Timbo Ball DO Work Phone: [facility] 10-18-2024 13:22-0500 Diastolic blood pressure 65 mm[Hg] Timbo Ball DO Work Phone: [facility] 10-18-2024 13:22-0500 Heart rate 60 /min Timbo Ball DO Work Phone: [facility] 10-18-2024 13:22-0500 Respiratory rate 16 /min Timbo Ball DO Work Phone: [facility] 10-18-2024 13:22-0500 SaO2% (BldA) [Mass fraction] 97 % Timbo Ball DO Work Phone: [facility] 10-18-2024 13:22-0500 Systolic blood pressure 110 mm[Hg] Timbo Ball DO Work Phone: [facility] 10-18-2024 11:10-0500 Inhaled oxygen flow rate 4 L/min Timbo Ball DO Work Phone: [facility] 10-18-2024 09:08-0500 Body height 177.8 cm Timbo Ball DO Work Phone: [facility] 10-18-2024 09:08-0500 Body weight 88 kg Timbo Ball DO Work Phone: [facility] 10-04-2024 11:45-0500 Diastolic blood pressure 62 mm[Hg] Timbo Ball DO Work Phone: [facility] 10-04-2024 11:45-0500 Heart rate 60 /min Timbo Ball DO Work Phone: [facility] 10-04-2024 11:45-0500 Respiratory rate 16 /min Timbo Ball DO Work Phone: [facility] 10-04-2024 11:45-0500 SaO2% (BldA) [Mass fraction] 95 % Timbo Ball DO Work Phone: [facility] 10-04-2024 11:45-0500 Systolic blood pressure 99 mm[Hg] Timbo Ball DO Work Phone: [facility] 10-04-2024 09:30-0500 Inhaled oxygen flow rate 4 L/min Timbo Ball DO Work Phone: [facility] 10-04-2024 07:36-0500 Body height 177.8 cm Timbo Ball DO Work Phone: [facility] 10-04-2024 07:36-0500 Body weight 88.45 kg Timbo Ball DO Work Phone: [facility] 09-20-2024 11:23-0500 Blood Pressure Location Salome LOYA [facility] 09-20-2024 11:23-0500 Diastolic blood pressure 64 mm[Hg] Salome LOYA [facility] 09-20-2024 11:23-0500 Heart rate 67 /min Salome LOYA [facility] 09-20-2024 11:23-0500 Respiratory rate 18 /min Salome LOYA [facility] 09-20-2024 11:23-0500 Systolic blood pressure 97 mm[Hg] Salome LOYA [facility] 08-31-2024 11:00-0400 Body height 177.8 cm DO Timbo Ball Work Phone: [facility] 08-31-2024 11:00-0400 Body mass index (BMI) [Ratio] 28.5 kg/m2 DO Timbo Ball Work Phone: [facility] 08-31-2024 11:00-0400 Body weight 90.43 kg DO Timbo Ball Work Phone: [facility] 08-31-2024 11:00-0400 Diastolic blood pressure 79 mm[Hg] DO Timbo Ball Work Phone: [facility] 08-31-2024 11:00-0400 Heart rate 69 /min DO Timbo Ball Work Phone: [facility] 08-31-2024 11:00-0400 Respiratory rate 12 /min DO Timbo Ball Work Phone: [facility] 08-31-2024 11:00-0400 Systolic blood pressure 116 mm[Hg] DO Timbo Ball Work Phone: [facility] 08-25-2024 09:46-0400 Diastolic blood pressure 79 mm[Hg] DO Timbo Ball Work Phone: [facility] 08-25-2024 09:46-0400 Heart rate 68 /min DO Timbo Ball Work Phone: [facility] 08-25-2024 09:46-0400 Systolic blood pressure 160 mm[Hg] DO Timbo Ball Work Phone: [facility] 08-16-2024 14:15-0400 Body height 177.8 cm [facility] 08-16-2024 14:15-0400 Body mass index (BMI) [Ratio] 28.4 kg/m2 [facility] 08-16-2024 14:15-0400 Body weight 89.81 kg [facility] 08-16-2024 14:15-0400 Diastolic blood pressure 80 mm[Hg] [facility] 08-16-2024 14:15-0400 Heart rate 71 /min [facility] 08-16-2024 14:15-0400 Respiratory rate 18 /min [facility] 08-16-2024 14:15-0400 SaO2% (BldA) [Mass fraction] 94 % [facility] 08-16-2024 14:15-0400 Systolic blood pressure 138 mm[Hg] [facility] 06-30-2024 10:03-0400 Body height 177.8 cm DO Timbo Ball Work Phone: [facility] 06-30-2024 10:03-0400 Body mass index (BMI) [Ratio] 28.5 kg/m2 DO Timbo Ball Work Phone: [facility] 06-30-2024 10:03-0400 Body weight 90.43 kg DO Timbo Ball Work Phone: [facility] 06-30-2024 10:03-0400 Diastolic blood pressure 73 mm[Hg] DO Timbo Ball Work Phone: [facility] 06-30-2024 10:03-0400 Heart rate 80 /min DO Timbo Ball Work Phone: [facility] 06-30-2024 10:03-0400 Respiratory rate 12 /min DO Timbo Ball Work Phone: [facility] 06-30-2024 10:03-0400 Systolic blood pressure 128 mm[Hg] DO Timbo Ball Work Phone: [facility] 05-06-2024 12:38-0400 Body height 177.8 cm DO Timbo Ball Work Phone: [facility] 05-06-2024 12:38-0400 Body mass index (BMI) [Ratio] 29 kg/m2 DO Timbo Ball Work Phone: [facility] 05-06-2024 12:38-0400 Body temperature 96.3 [degF] DO Timbo Ball Work Phone: [facility] 05-06-2024 12:38-0400 Body weight 91.62 kg DO Timbo Ball Work Phone: [facility] 05-06-2024 12:38-0400 Diastolic blood pressure 78 mm[Hg] DO Timbo Ball Work Phone: [facility] 05-06-2024 12:38-0400 Heart rate 62 /min DO Timbo Ball Work Phone: [facility] 05-06-2024 12:38-0400 SaO2% (BldA) [Mass fraction] 90 % DO Timbo Ball Work Phone: [facility] 05-06-2024 12:38-0400 Systolic blood pressure 108 mm[Hg] DO Timbo Ball Work Phone: [facility] 03-15-2024 11:40-0400 Body height 177.8 cm [facility] 03-15-2024 11:40-0400 Body mass index (BMI) [Ratio] 29 kg/m2 [facility] 03-15-2024 11:40-0400 Body weight 91.73 kg [facility] 03-15-2024 11:40-0400 Diastolic blood pressure 76 mm[Hg] [facility] 03-15-2024 11:40-0400 Heart rate 66 /min [facility] 03-15-2024 11:40-0400 Respiratory rate 12 /min [facility] 03-15-2024 11:40-0400 Systolic blood pressure 129 mm[Hg] [facility] 01-08-2024 14:10-0500 Body height 177.8 cm [facility] 01-08-2024 14:10-0500 Body mass index (BMI) [Ratio] 28.8 kg/m2 [facility] 01-08-2024 14:10-0500 Body weight 90.94 kg [facility] 11-21-2023 10:30-0500 Body height 177.8 cm Timbo Ball Other [facility] [employer] Other 11-21-2023 10:30-0500 Body mass index (BMI) [Ratio] 29.12 kg/m2 Timbo Ball Other [employer] Other 11-21-2023 10:30-0500 Body weight 92.08 kg Timbo Ball Other [employer] Other 11-21-2023 10:30-0500 Diastolic blood pressure 66 mm[Hg] Timbo Ball Other [employer] Other 11-21-2023 10:30-0500 Respiratory rate 12 /min Timbo Ball Other [employer] Other 11-21-2023 10:30-0500 Systolic blood pressure 103 mm[Hg] Timbo Ball Other [employer] Other 09-24-2023 11:00-0500 Body height 177.8 cm Timbo Ball Other [employer] Other 09-24-2023 11:00-0500 Body mass index (BMI) [Ratio] 28.69 kg/m2 Timbo Ball Other [employer] Other 09-24-2023 11:00-0500 Body weight 90.72 kg Timbo Ball Other [facility] [employer] Other 09-24-2023 11:00-0500 Diastolic blood pressure 73 mm[Hg] Timbo Ball Other [employer] [facility] [employer] Other 09-24-2023 11:00-0500 Respiratory rate 12 /min Timbo Ball Other [facility] [employer] Other 09-24-2023 11:00-0500 Systolic blood pressure 134 mm[Hg] Timbo Ball Other [facility] [employer] Other 08-25-2023 12:21-0400 Blood Pressure Location Salome LOYA [facility] 08-25-2023 12:21-0400 Diastolic blood pressure 82 mm[Hg] Salome LOYA [facility] 08-25-2023 12:21-0400 Heart rate 80 /min Salome LOYA [facility] 08-25-2023 12:21-0400 Respiratory rate 16 /min Salome LOYA [facility] 08-25-2023 12:21-0400 Systolic blood pressure 137 mm[Hg] Salome LOYA [facility] 04-12-2023 09:16-0400 Body temperature 97 [degF] PA Aury Shehorn Work Phone: [facility] 04-12-2023 09:16-0400 Body weight 88.45 kg PA Aury Shehorn Work Phone: [facility] 04-12-2023 09:16-0400 Diastolic blood pressure 62 mm[Hg] PA Aury Shehorn Work Phone: [facility] 04-12-2023 09:16-0400 Heart rate 80 /min PA Aury Carvalhorn Work Phone: [facility] 04-12-2023 09:16-0400 SaO2% (BldA) [Mass fraction] 96 % PA Aury Carvalhorn Work Phone: [facility] 04-12-2023 09:16-0400 Systolic blood pressure 123 mm[Hg] PA Aury Carvalhorn Work Phone: [facility] 03-24-2023 12:00-0400 Body height 177.8 cm Timbo Ball Other [facility] [employer] Other 03-24-2023 12:00-0400 Body mass index (BMI) [Ratio] 28.44 kg/m2 Timbo Ball Other [facility] [employer] Other 03-24-2023 12:00-0400 Body weight 89.9 kg Timbo Ball Other [employer] Other 03-24-2023 12:00-0400 Diastolic blood pressure 67 mm[Hg] Timbo Ball Other [employer] Other 03-24-2023 12:00-0400 Respiratory rate 12 /min Timbo Ball Other [employer] Other 03-24-2023 12:00-0400 Systolic blood pressure 123 mm[Hg] Timbo Ball Other [employer] Other 04-29-2022 14:30-0400 Body height 177.8 cm Niya Baker Other [employer] Other 04-29-2022 14:30-0400 Body mass index (BMI) [Ratio] 28.69 kg/m2 Niya Baker Other [employer] Other 04-29-2022 14:30-0400 Body temperature 96.3 [degF] Niya Baker Other [employer] Other 04-29-2022 14:30-0400 Body weight 90.72 kg Niya Baker Other [employer] Other 04-29-2022 14:30-0400 Diastolic blood pressure 80 mm[Hg] Niya Baker Other [employer] Other 04-29-2022 14:30-0400 SaO2% (BldA) [Mass fraction] 98 % Niya Baker Other [employer] Other 04-29-2022 14:30-0400 Systolic blood pressure 120 mm[Hg] Niya Baker Other [employer] Other 04-19-2022 10:04-0400 Blood Pressure Location Salome LOYA [facility] 04-19-2022 10:04-0400 Diastolic blood pressure 84 mm[Hg] [facility] 04-19-2022 10:04-0400 Heart rate 67 /min Salome LOYA [facility] [place] [facility] Jose David 04-19-2022 10:04-0400 Respiratory rate 16 /min Salome LOYA [facility] [place] [facility] David 04-19-2022 10:04-0400 Systolic blood pressure 143 mm[Hg] Salome REINIER [facility] [place] [facility] David Encounters Encounter Date Encounter Type Care Provider Facility Start: 09-26-2025 ambulatory Salome LOYA Facili ty:[facility] Start: 12-29-2024 End: 12-29-2024 ambulatory Timbo Ball DO Work Phone: [facility] Work Phone: Start: 12-29-2024 End: 12-29-2024 Patient encounter procedure Timbo Ball DO Work Phone: [facility] Surg Work Phone: Start: 12-07-2024 End: 12-07-2024 Patient encounter procedure Timbo Ball DO Work Phone: [facility] [place] Work Phone: Start: 12-07-2024 End: 12-07-2024 ambulatory Timbo Ball DO Work Phone: [facility] Work Phone: Start: 11-25-2024 End: 11-25-2024 ambulatory Timbo Ball DO Work Phone: [facility] Work Phone: Start: 11-25-2024 End: 11-25-2024 Patient encounter procedure Timbo Ball DO Work Phone: [facility] Surg Work Phone: Start: 11-04-2024 Non-patient / Non-visit Benjam in Ball DO Work Phone: [facility] Work Phone: Start: 10-28-2024 End: 10-28-2024 Patient encounter procedure Timbo Ball DO Work Phone: [facility] Work Phone: Start: 10-26-2024 End: 10-26-2024 Patient encounter procedure Timbo Baig DO Work Phone: [facility] Card[facility] Work Phone: Start: 10-18-2024 Non-patient / Non-visit Benjam in Ball DO Work Phone: [facility] Vascular Surg Work Phone: Start: 10-18-2024 End: 10-18-2024 Admission to same day surgery center Timbo Baig DO Work Phone: [facility]Interventional Radiology Work Phone: Start: 10-18-2024 End: 10-18-2024 ambulatory Jaylon Finnegan Facility:[facility] Start: 10-04-2024 Non-patient / Non-visit Benjam in Jenniffer DO Work Phone: [facility] Vascular Surg Work Phone: Start: 10-04-2024 End: 10-04-2024 Admission to same day surgery center Timbo Baig DO Work Phone: [facility] Work Phone: Start: 10-04-2024 End: 10-04-2024 ambulatory Jaylon Finnegan Facility:[facility] Start: 09-20-2024 End: 09-20-2024 ambulatory Salome LOYA Facility:[facility] Start: 09-20-2024 End: 09-20-2024 Patient encounter procedure Salome LOYA [facility] Start: 09-15-2024 End: 09-15-2024 ambulatory DO Timbo Baig Work Phone: [facility] Work Phone: Start: 09-15-2024 End: 09-15-2024 Patient encounter procedure DO Timbo Baig Work Phone: [facility] Work Phone: Start: 08-31-2024 End: 08-31-2024 ambulatory DO Timbo Ball Work Phone: [facility] Work Phone: Start: 08-31-2024 End: 08-31-2024 Patient encounter procedure DO Timbo Ball Work Phone: [facility] Work Phone: Start: 08-26-2024 End: 08-26-2024 Patient encounter procedure DO Timbo Ball Work Phone: [facility] [place] Work Phone: Start: 08-26-2024 End: 08-26-2024 ambulatory DO Timbo Ball Work Phone: [facility] Work Phone: Start: 08-25-2024 End: 08-25-2024 ambulatory DO Timbo Ball Work Phone: [facility] Work Phone: Start: 08-25-2024 End: 08-25-2024 Patient encounter procedure DO Timbo Ball Work Phone: [facility] [place] Work Phone: Start: 08-16-2024 End: 08-16-2024 Patient encounter procedure [facility] Cardiology Work Phone: Start: 08-16-2024 End: 08-16-2024 ambulatory Ling D Doylekydanilo [facility] Work Phone: Start: 06-30-2024 End: 06-30-2024 ambulatory DO Timbo Ball Work Phone: [facility] Work Phone: Start: 06-30-2024 End: 06-30-2024 Patient encounter procedure DO Timbo Ball Work Phone: [facility] Work Phone: Start: 05-06-2024 End: 05-06-2024 ambulatory DO Timbo Baig Work Phone: [facility] Work Phone: Start: 05-06-2024 End: 05-06-2024 Patient encounter procedure DO Timbo Ball Work Phone: [facility] Vascular Surgery Work Phone: Start: 04-29-2024 Non-patient / Non-visit DO Shegn ambriz Ball Work Phone: [facility] Work Phone: Start: 04-17-2024 Non-patient / Non-visit DO Sheng ambriz Ball Work Phone: [facility] Work Phone: Start: 04-07-2024 Non-patient / Non-visit DO Sheng Baig Work Phone: [facility] Work Phone: Start: 03-15-2024 End: 03-15-2024 ambulatory [facility] Work Phone: Start: 03-15-2024 End: 03-15-2024 Patient encounter procedure [facility] Work Phone: Start: 02-11-2024 End: 02-11-2024 ambulatory NAVNEET BLANC Not Available Start: 01-15-2024 End: 01-15-2024 ambulatory [facility] Start: 01-08-2024 End: 01-08-2024 Patient encounter procedure [facility] Neurosurgery Work Phone: Start: 12-26-2023 Non-patient / Non-visit [facility] Work Phone: Start: 12-17-2023 End: 12-17-2023 ambulatory [facility] Start: 11-21-2023 End: 11-21-2023 ambulatory Timbo Baig Other [employer] Other Start: 11-21-2023 Office outpatient vi sit 15 minutes Timbo Baig [facility] Start: 10-08-2023 End: 10-08-2023 ambulatory Timbo Baig Other [employer] Other Start: 10-08-2023 Telephone encounter Timbo Baig [facility] Start: 09-24-2023 End: 09-24-2023 ambulatory Timbo Baig Other [employer] Other Start: 09-24-2023 Office outpatient vi sit 25 minutes Timbo Baig [facility] Start: 09-04-2023 Office outpatient vi sit 15 minutes Jaylon Finnegan [facility] Vascular Surgery Start: 09-04-2023 End: 09-04-2023 ambulatory DO Timbo Baig Work Phone: [employer] Other Start: 09-04-2023 End: 09-04-2023 Patient encounter procedure DO Timbo Baig Work Phone: [facility] Start: 08-25-2023 End: 08-25-2023 Patient encounter procedure Salome LOYA [facility] Start: 2023 End: 2023 ambulatory Niya Baker Other [employer] Other Start: 2023 Telephone encounter Niya Barber [facility] Start: 05-22-2023 End: 05-22-2023 ambulatory Niya Baker Other [employer] Other Start: 05-22-2023 Telephone encounter Niya Barber [facility] Start: 05-01-2023 End: 05-01-2023 ambulatory DO Timbo Baig Work Phone: [facility] Work Phone: Start: 05-01-2023 End: 05-01-2023 Patient encounter procedure DO Timbo Jenniffer Work Phone: [facility] Start: 04-12-2023 End: 04-12-2023 ambulatory PA Aury Mariellahermila Work Phone: [facility] [employer] Work Phone: Start: 04-12-2023 End: 04-12-2023 Patient encounter procedure ANDERSON Ann Work Phone: [facility], [facility] Work Phone: Start: 04-02-[address] TIMBO BAIG Facil ty:[facility] Start: 03-24-2023 End: 03-24-2023 ambulatory Timbo Baig Other [employer] Other Start: 03-24-2023 Patient encounter procedure Timbo Baig [facility] Jenniffer [facility] Start: 09-25-2022 End: 09-26-[address] TIMBO BAIG Facility:[facility] Start: 07-09-2022 End: 07-10-2022 ambulatory TITA JJ Facility:[facility] Start: 04-29-2022 End: 04-29-2022 ambulatory Niya Baker Other [employer] Other Start: 04-29-2022 Follow-up encounter Niya Barber [facility] Start: 04-29-2022 End: 04-29-2022 Patient encounter procedure DO Timbo Baig Work Phone: [facility] Start: 04-27-2022 End: 04-28-[address] TIMBO BIAG Facility:[facility] Start: 04-19-2022 End: 04-19-2022 Patient encounter procedure Salome LOYA [facility] Start: 04-18-2022 End: 04-19-[address] SALOME LOYA . Facility: Start: 03-13-2022 Adult health examination Jaylon Finnegan Other [facility] [employer] Other Procedures Date Procedure Procedure Detail Performing Clinician Start: 12-07-2024 Pulse volume recorde r plethysmography Timbo Ball DO Work Phone: Start: 10-18-2024 Angiography Timbo B all DO Work Phone: Start: 10-04-2024 Lower limb angiography Timbo Ball DO Work Phone: Start: 08-26-2024 Pulse volume recorde r plethysmography DO [employer] Work Phone: Start: 08-25-2024 Radionuclide myocard ial perfusion stress study DO [employer] Work Phone: Start: 05-06-2024 Doppler ultrasonogra phy of bilateral carotid arteries DO [employer] Work Phone: Start: 09-04-2023 Ankle brachial press ure index DO [employer] Work Phone: Start: 05-22-2023 Extracorporeal shock wave lithotripsy of calculus of kidney Salome REINIER Start: 04-12-2023 Flu B ANDERSON Ann Work Phone: Start: 04-12-2023 Rapid Strep ANDERSON Ann Work Phone: Start: 08-31-2020 Extracorporeal shock wave lithotripsy of calculus of kidney Salome REINIER Start: 05-23-2020 Cystoscopy Salome LEWIS Start: 06-17-2019 Cystoscopic removal of ureteric stent Salome LOYA Start: 06-10-2019 Cystoscopic insertio n of ureteric stent Salome LOYA Start: 09-18-2018 Screening for malign ant neoplasm of colon Jaylon Finnegan Other Start: 04-11-2016 Extracorporeal shock wave lithotripsy of calculus of kidney Salome LOYA Comment on above: w/ left stent remova l Start: 03-25-2016 Lithotripsy using laser Salome LOYA Comment on above: Cystoscopy/Urethreal dilateion/Left stent placement/ Holmium laser of left prostatic calculus/Stone extraction Start: 10-10-2014 Coronary artery bypa ss graft Salome LOYA Start: 11-10-2011 Coronary artery sten t (physical object) Salome LOYA Start: 09-18-2009 Cystoscopy Salome LEWIS Start: 11-10-2002 Cystoscopy Salome EDITH HAGANScarlet Start: 11-10-2002 Transurethral prostatectomy Salome LOYA Comment on above: w/ Cystoscopy Start: 11-10-2001 Transrectal biopsy o f prostate using ultrasound guidance Salome LOYA Cystoscopy Salome LOYA Depression screening Jaylon Finnegan Other Hemorrhoidectomy Salome CARLTON ABREU Herniated structure (morphologic abnormality) Salome LOYA History of coronary artery bypass grafting S/P CABG (coronary artery bypass graft) Timbo Baig Work Phone: Urodynamic studies Salome SMITH Plan of Treatment Date Care Activity Detail Author Start: 12-07-2024 Pulse volume recorde r plethysmography [facility] Start: 10-18-2024 [facility] Start: 10-04-2024 [facility] Start: 08-26-2024 Pulse volume recorde r plethysmography [facility] Start: 10-16-2024 Radionuclide myocard ial perfusion stress study NM charito perf SPECT rest & str [facility] Start: 08-16-2024 [facility] Start: 06-30-2024 Patient referral [facility] Work Phone: Start: 05-06-2024 Doppler ultrasonogra phy of bilateral carotid arteries US carotid doppler [facility] Start: 05-06-2024 [facility] Start: 01-08-2024 Patient referral [facility] Work Phone: Start: 05-01-2023 Doppler ultrasonogra phy of bilateral carotid arteries US carotid doppler [facility] Start: 05-01-2023 US.doppler [facility] Start: 04-29-2022 Doppler ultrasonogra phy of bilateral carotid arteries US carotid doppler [facility] Ankle brachial press ure index [facility] Comprehensive metabo lic 1999 panel - Serum or Plasma [facility] Comprehensive metabo lic 1999 panel - Serum or Plasma [facility] Patient Education [facility], [facility] Work Phone: Patient referral [facility] Work Phone: US.doppler Carotid a [facility] XR Lumbar spine 4 Views [facility] Immunizations Immunization Date Immunization Notes Care Provider Noah jamison 07-16-2024 influenza virus vaccine, unspecified formulation Salome LOYA [facility] 07-30-2023 influenza virus vaccine, unspecified formulation Salome LOYA [facility] 08-04-2022 COVID-19 Pfizer (bivalent) Timbo Baig Other [facility] 08-04-2022 influenza virus vaccine, unspecified formulation Salome LOYA [facility] 08-04-2022 influenza, high dose seasonal, preservative-free Timbo Baig Other [employer] Other 02-21-2022 COVID-19 Pfizer Timbo velasco Other [facility] 02-21-2022 SARS-CoV-2 mRNA (jbokodgxjok-dbbe-mitju se) vaccine Salome LOYA [facility] 09-06-2021 zoster vaccine recombinant Timbo Baig Other [facility] 08-10-2021 influenza virus vaccine, unspecified formulation Salome LOYA [facility] 08-07-2021 COVID-19 Vaccine Pfi zer - Documentation Purposes Only Timbo Baig Other [facility] Comment on above: Result Comment: 2022: [id number] 07-19-2021 influenza virus vaccine, unspecified formulation Salome LOYA [facility] 05-16-2021 zoster vaccine recombinant Timbo Baig Other [facility] 01-09-2021 COVID-19 Vaccine Pfi zer - Documentation Purposes Only Timbo Baig Other [facility] Comment on above: Result Comment: 2022: [id number] 12-19-2020 COVID-19 Vaccine Pfi zer - Documentation Purposes Only Timbo Baig Other [facility] Comment on above: Result Comment: 2022: [id number] 07-31-2020 influenza virus vaccine, unspecified formulation Salomealeksandr LOYA [facility] 08-20-2019 influenza virus vaccine, split virus (incl. purified surface antigen) Jaylon Finnegan Other [employer] [facility] [employer] Other 08-20-2019 influenza virus vaccine, unspecified formulation [facility] 08-10-2019 influenza virus vaccine, unspecified formulation Salome LOYA [facility] 02-19-2019 pneumococcal polysaccharide vaccine, 23 valent Timbo Ball Other [facility] 09-21-2018 influenza virus vaccine, unspecified formulation Salome LOYA [facility] 08-19-2018 influenza virus vaccine, split virus (incl. purified surface antigen) Jaylon Finnegan Other [employer] [facility] [employer] Other 08-19-2018 influenza virus vaccine, unspecified formulation [facility] 02-16-2018 pneumococcal conjuga te vaccine, 13 valent Timbo Ball Other [facility] 09-02-2017 influenza virus vaccine, unspecified formulation Salome LOYA [facility] 08-28-2016 influenza virus vaccine, unspecified formulation Salome LOYA [facility] 08-22-2015 influenza virus vaccine, unspecified formulation Salome LOYA [facility] 08-19-2013 influenza virus vaccine, unspecified formulation Salome LOYA [facility] Payers Date Payer Category Payer Self-pay [id number] 1957 Medicare [id number] 1959 Private Health Insurance [id number] 1942 Unknown [id number] 2.16.84 [id number] 1942 Unknown [id number] 2.16.84 [id number] 1942 Unknown [id number] 2.16.84 0.1.290513.3.579.2.593 1942 Unknown [id number] 2.16.84 0.1.315375.3.579.2.593 1942 Unknown [id number] 2.16.84 0.1.559090.3.579.2.593 1942 Unknown [id number] 2.16.84 0.1.989943.3.579.2.1259 1942 Unknown [id number] 2.16.8 40.1.979168.3.579.2.727 1942 Unknown [id number] 2.16.8 [id number] Medicare [id number] Unknown [id number] 2.16.8 40.1.298056.3.579.2.531 Unknown [id number] 2.16.8 40.1.157254.3.579.2.531 Unknown [id number] 2.16.8 40.1.446307.3.579.2.531 Unknown [id number] 2.16.8 40.1.179524.3.579.2.531 Unknown [id number] 2.16.8 [id number] Unknown [id number] 2.16.8 [id number] Unknown [id number] 2.16.8 [id number] Social History Date Type Detail Facility Start: 08-27-2021 End: 12-29-2024 Tobacco smoking status Ex-smoker (finding) [facility] Sex Assigned At Male [facility] Start: 1940 Sex Assigned At Male F [facility] Start: 04-12-2023 Alone [facility] Start: 04-12-2023 0 [facility] Start: 03-12-2024 Tobacco smoking stat [facility] Never smoked tobacco (finding) [facility] Start: 11-25-2024 End: 12-29-2024 Sex Male (finding) [facility] Medical Equipment Procedure Code Equipment Code Equipment Origin al Text Equipment Identifier Dates Angiogram, lower extremity, left Multiple peripheral artery stent, bare-metal [id number] FDA Start: 10-04-2024 Functional Status Date Assessment Result Facility 09-20-2024 Functional Status N/A [facility] 08-25-2023 Functional Status N/A [facility] Clinical Notes 04-19-2022 to 10-18-2024 Note Date & Type Note Facility 10-18-2024 Evaluation note Diagnosis Onset Date Resolution PAD (peripheral artery disease) acute October 18, 2024 8:56am Carotid stenosis, bilateral acute October 26, 2024 8:58am Chronic heart failure with preserved ejection fraction (HFpEF) acute October 26, 2024 8:58am Coronary artery disease involving [place] coronary artery of [place] heart [place] acute [facility] 2023 8:58am Nonrheumatic mitral (valve) stenosis acute October 26, 2024 8:58am PAD (peripheral artery disease) acute October 26, 2024 8:58am S/P aortic valve replacement with bioprosthetic valve acute October 8:58am S/P CABG (coronary artery bypass graft) acute October 26, 2024 8:58am ASHD (arteriosclerotic heart disease) acute October 28, 2024 2:47pm 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 acute Decemb er 2023 2:47pm Carotid stenosis, bilateral acute October 28, 2024 2:47pm Chronic heart failure with preserved ejection fraction (HFpEF) acute October 28, 2024 2:47pm Hypercholesterolemia acute Dece mber 2023 2:47pm Hypertension acute October 2:47pm Primary insomnia acute October 28, 2024 2:47pm Former smoker acute November 9:58am PAD (peripheral artery disease) acute November 25, 2024 9:58am Right leg claudication acute [facility] 2024 9:58am [facility] Work Phone: [phone] 711-626311-11-2024 Hospital Discharge instructions Patient Education 09/20/2024 12:11:28 Kidney Stones, Svcl-[id number] Kidney Stones Kidney stones are rock-like masses [...] pee. The stone usually leaves your body through your pee. A doctor may need to take out the stone. What are the causes? Kidney stones may be caused by: Too much calcium in the body. This may be caused by too much parathyroid hormone in the blood. Uric acid crystals in the bladder. The body makes uric acid when you eat certain foods. Narrowing of one or both of the ureters. A kidney blockage that you were born with. Past surgery on the kidney or the ureters. What increases the risk? You are more likely to develop this condition if: You have had a kidney stone in the past. Other people in your family have had kidney stones. You do not drink enough water. You eat a diet that is high in protein, salt (sodium), or sugar. You are very overweight (obese). What are the signs or symptoms? Symptoms of a kidney stone may include: Pain in the side of the belly, right below the ribs. Pain usually spreads to the groin. Needing to pee often or right away. Pain when peeing. Blood in your pee. Feeling like you may vomit (nauseous). Vomiting. Fever and chills. How is this treated? Treatment depends on the size, location, and makeup of the kidney stones. The stones will often pass out of the body when you pee. You may need to: Drink more fluid to help pass the stone. ?In some cases, you may be given fluids through an IV tube at the hospital. Take medicine for pain. Change your diet to help keep kidney stones from coming back. Sometimes, you may need: A procedure to break up kidney stones using a beam of light (laser) or shock waves. Surgery to remove the kidney stones. Follow these instructions at home: Medicines Take jvmh-slf-jtpzbhg and prescription medicines only as told by your doctor. Ask your doctor if the medicine prescribed to you requires you to avoid driving or using machinery. Eating and drinking Drink enough fluid to keep your pee pale yellow. ?You may be told to drink at least 8 10 glasses of water each day. This will help you pass the stone. If told by your doctor, change your diet. You may be told to: ?Limit how much salt you eat. ?Eat more fruits and vegetables. ?Limit how much meat, poultry, fish, and eggs you eat. Follow instructions from your doctor about what you may eat and drink. General instructions Collect pee samples as told by your doctor. You may need to collect a pee sample: ?24 hours after a stone comes out. ?8 12 weeks after a stone comes out, and every 6 12 months after that. Strain your pee every time you pee. Use the strainer that your doctor recommends. Do not throw out the stone. Keep it so that it can be tested by your doctor. Keep all follow-up visits. You may need X-rays and ultrasounds to make sure the stone has come out. How is this prevented? To prevent another kidney stone: Drink enough fluid to keep your pee pale yellow. This is the best way to prevent kidney stones. Eat healthy foods. Avoid certain foods as told by your doctor. You may be told to eat less protein. Stay at a healthy weight. Where to find more information National Kidney Foundation (NKF): kidney.org Urology Care Foundation (F): urologyhealth.org Contact a doctor if: You have pain that gets worse or does not get better with medicine. Get help right away if: You have a fever or chills. You get very bad pain. You get new pain in your belly. You faint. You cannot pee. This information is not intended to replace advice given to you by your health care provider. Make sure you discuss any questions you have with your health care provider. Document Revised: 06/20/2023 Document Reviewed: 06/20/2023 [employer] Patient Education 2023 [employer]. Follow Up Care 04/21/2023 10:27:24 With:REINIER HUSAIN, Salome Jaramillo, URL Address: [facility] [address], [place] [address]- [phone] When: Unknown Comments:3 yr w/ MELQUIADES [facility] 11-11-2024 NotePatient Education Urology Kidney Stones Kidney stones are rock-like masses that form inside of the kidneys. Kidneys are organs that make pee (urine). A kidney stone may move into other parts of the urinary tract, including: ??? The tubes that connect the kidneys to the bladder (ureters). ??? The bladder. ??? The tube that carries urine out of the body (urethra). Kidney stones can cause very bad pain and can block the flow of pee. The stone usually leaves your body through your pee. A doctor may need to take out the stone. What are the causes? Kidney stones may be caused by: ??? Too much calcium in the body. This may be caused by too much parathyroid hormone in the blood. ??? Uric acid crystals in the bladder. The body makes uric acid when you eat certain foods. ??? Narrowing of one or both of the ureters. ??? A kidney blockage that you were born with. ??? Past surgery on the kidney or the ureters. What increases the risk? You are more likely to develop this condition if: ??? You have had a kidney stone in the past. ??? Other people in your family have had kidney stones. ??? You do not drink enough water. ??? You eat a diet that is high in protein, salt (sodium), or sugar. ??? You are very overweight (obese). What are the signs or symptoms? Symptoms of a kidney stone may include: ??? Pain in the side of the belly, right below the ribs. Pain usually spreads to the groin. ??? Needing to pee often or right away. ??? Pain when peeing. ??? Blood in your pee. ??? Feeling like you may vomit (nauseous). ??? Vomiting. ??? Fever and chills. How is this treated? Treatment depends on the size, location, and makeup of the kidney stones. The stones will often pass out of the body when you pee. You may need to: ??? Drink more fluid to help pass the stone. ? In some cases, you may be given fluids through an IV tube at the hospital. ??? Take medicine for pain. ??? Change your diet to help keep kidney stones from coming back. Sometimes, you may need: ??? A procedure to break up kidney stones using a beam of light (laser) or shock waves. ??? Surgery to remove the kidney stones. Follow these instructions at home: Medicines ??? Take xmcf-nmi-zwgeanj and prescription medicines only as told by your doctor. ??? Ask your doctor if the medicine prescribed to you requires you to avoid driving or using machinery. Eating and drinking ??? Drink enough fluid to keep your pee pale yellow. ? You may be told to drink at least 8?10 glasses of water each day. This will help you pass the stone. ??? If told by your doctor, change your diet. You may be told to: ? Limit how much salt you eat. ? Eat more fruits and vegetables. ? Limit how much meat, poultry, fish, and eggs you eat. ??? Follow instructions from your doctor about what you may eat and drink. General instructions ??? Collect pee samples as told by your doctor. You may need to collect a pee sample: ? 24 hours after a stone comes out. ? 8?12 weeks after a stone comes out, and every 6?12 months after that. ??? Strain your pee every time you pee. Use the strainer that your doctor recommends. ??? Do not throw out the stone. Keep it so that it can be tested by your doctor. ??? Keep all follow-up visits. You may need X-rays and ultrasounds to make sure the stone has come out. How is this prevented? To prevent another kidney stone: ??? Drink enough fluid to keep your pee pale yellow. This is the best way to prevent kidney stones. ??? Eat healthy foods. ??? Avoid certain foods as told by your doctor. You may be told to eat less protein. ??? Stay at a healthy weight. Where to find more information ??? National Kidney Foundation (NKF): kidney.org ??? [employer] (UCF): urologyhealth.org Contact a doctor if: ??? You have pain that gets worse or does not get better with medicine. Get help right away if: ??? You have a fever or chills. ??? You get very bad pain. ??? You get new pain in your belly. ??? You faint. ??? You cannot pee. This information is not intended to replace advice given to you by your health care provider. Make sure you discuss any questions you have with your health care provider. Document Revised: 06/20/2023 Document Reviewed: 06/20/2023 [employer] Patient Education ? 2023 [employer] 09-15-2024 Evaluation note* Diagnosis Onset Date Resolution Status Admit Date PAD (peripheral artery disease) acut e September 15, 2024 11:48am PAD (peripheral artery disease) acut e October 18, 2024 8:56am Carotid stenosis, bilateral acute October 26, 2024 8:58am Chronic heart failure with preserved ejection fraction (HFpEF) acute October 26 8:58am Coronary artery disease invo lving [place] coronary artery of [place] heart [place] acute October 26 8:58am Nonrheumatic mitral (valve) stenosis acute October 26 8:58am PAD (peripheral artery disease) acut e October 26, 2024 8:58am S/P aortic valve replacement with bioprosthetic valve acute October 8:58am S/P CABG (coronary artery by pass graft) acute Miguel 17th, 2 024 8:58am ASHD (arteriosclerotic heart disease) acute October 28 024 2:47pm 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 acute October 28 024 2:47pm Carotid stenosis, bilateral acute October 28, 2024 2:47pm Chronic heart failure with preserved ejection fraction (HFpEF) acute October 28, 2 024 2:47pm Hypercholesterolemia acute Dece mber 2023 2:47pm Hypertension acute October 2:47pm Primary insomnia acute October 28, 2024 2:47pm Former smoker acute November 9:58am PAD (peripheral artery disease) acut e November 25, 2024 9:58am Right leg claudication acute [facility] 2024 9:58am [facility] Work Phone: 1(996) 935-612110-22-2024 Evaluation note* Diagnosis Onset Date Resolution Status Admit Date ASHD (arteriosclerotic heart disease) acute August 31 10:58am 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 acute August 31 10:58am Carotid stenosis, bilateral acute August 31, 2024 10:58am Chronic heart failure with preserved ejection fraction (HFpEF) acute August 31 10:58am Hypercholesterolemia acute 2023 10:58am Hypertension acute August 10:58am PAD (peripheral artery disease) acut e September 15, 2024 11:48am PAD (peripheral artery disease) acut e October 18, 2024 8:56am Carotid stenosis, bilateral acute October 26, 2024 8:58am Chronic heart failure with preserved ejection fraction (HFpEF) acute October 26, 024 8:58am Coronary artery disease invo lving [place] coronary artery of [place] heart [place] acute October 26 024 8:58am Nonrheumatic mitral (valve) stenosis acute October 26 024 8:58am PAD (peripheral artery disease) acut e October 26, 2024 8:58am S/P aortic valve replacement with bioprosthetic valve acute October 8:58am S/P CABG (coronary artery by pass graft) acute October 26 024 8:58am ASHD (arteriosclerotic heart disease) acute October 28 024 2:47pm 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 acute October 28 024 2:47pm Carotid stenosis, bilateral acute October 28, 2024 2:47pm Chronic heart failure with preserved ejection fraction (HFpEF) acute October 28, 2 024 2:47pm Hypercholesterolemia acute Dece mber 2023 2:47pm Hypertension acute October 2:47pm Primary insomnia acute October 28, 2024 2:47pm [facility] Work Phone: [phone]) 971-535203-07-2024 NotePatient here for 1 mo follow up acute on chronic diastolic heart [...] pain. All other systems reviewed and are negative.[facility] 01-15-2024 [facility]Cardiovascular Medicine [place] [facility] SUBJECTIVE Chief Complaint Patient presents with Coronary Artery Disease Congestive Heart Failure Hypertension Hyperlipidemia Max Brady is a 83 y.o. male here for follow-up. HPI PMHx: AVR 2014, CAD s/p CABG x1 2014, HTN, carotid stent by vascular surgeon in [place] (Dr. Cedillo) 01/15/2024 He notes that his [...] 7. Mild mitral va (more content not included)...[facility]02-07-2024 NotePatient here for 1 year follow up CAD, [...] pain. All other systems reviewed and are negative.[facility] 12-17-2023 NoteCardiovascular Medicine [place] [facility] SUBJECTIVE No chief complaint on file. Max Brady is a 83 y.o. male here for follow-up. HPI PMHx: AVR 2014, CAD s/p CABG x1 2014, HTN, carotid stent by vascular surgeon in [place] (Dr. Cedillo) He works out a few [...] aortic stenosis by invasive hemodynamic study. 2. Gkfgxcka-qw-ithpvi two-vessel coronary artery disease involving the left anterior descending and left circumflex coronary arteries. 3. Normal right-sided heart pressures and wedge pressure. 4. Normal cardiac output/cardiac index. 5. 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 He c/o low back pain w/ ambulating and standing along with the weakness. I don't believe this is a Peroneal injury due to his associated back pain. His symptoms have been present for a couple years. - previously referred to [facility] Neurosurgery but declined treatment He [...] and feet daily for blisters and ulcerations. [employer] Other 11-15-2023 Evaluation note* Encounter Date Diagnosis [...] w/ serial Echocardiogram Control BP and HR [employer] Other 10-26-2023 Evaluation note* Encounter Date Diagnosis [...] pain which seems to be bothering him. [employer] Other 10-16-2023 Hospital Discharge instructions Patient Education [...] include: ?8 oz (237 mL) of milk, ffcvzdx-nvflkfhuuyol-lcvgk milk, and calcium- fortifiedfruit juice. Calcium-fortified means [...] potatoes, and Kittitian chard. ?Peanuts. ?Potato chips, togolese fries, and baked potatoes with skin on. ?Nuts and nut products. ?Chocolate. If you regularly take a diuretic medicine, make sure to eat at least 1 or 2 servings of fruits or vegetables that are high in potassium each day. These include: ?Avocado. ?Banana. ?[place], prune, carrot, or tomato juice. ?Baked potato. [...] magnesium, fish oil, or vitamin B6. Take fpaa-ckg-ynigtna and prescription medicines only as told by [...] Casseroles. Pizza. Lasagna. Frozen meals. Potato chips. Albanian fries. The items listed above may not [...] provider. Document Revised: 07/08/2022 Document Reviewed: 07/08/2022 [employer] Patient Education 2022 [employer]. Follow Up Care 05/30/2023 13:07:47 With:REINIER HUSAIN, Salome Jaramillo, URL Address: [facility] [address] , [place] [address]- When:Within 1 Year(s) Comments:w/MELQUIADES [facility] 05-15-2023 Evaluation note* Encounter Date Diagnosis [...] High risk medication use (ICD-10 - Z79.899) [employer] Other 06-20-2022 Evaluation note* Encounter Date Diagnosis [...] agrees with this plan, denies any questions. [employer] Other 06-10-2022 Hospital Discharge instructions Patient Education 04/19/2022 10:54:30 Kidney Stones, Jfqc-sn-Ialz Kidney Stones Kidney stones are rock-like masses [...] Follow these instructions at home: Medicines Take bamz-ris-ygdndgc and prescription medicines only as told by [...] 04/14/2009 Document Revised: 03/14/2020 Document Reviewed: 03/14/2020 [employer] Patient Education 2020 [employer] Follow Up Care 08/27/2021 10:53:23 With:Salome LOYA MD, URL Address: [facility] [address], [place] [address]- [phone] When:04/19/2023 [facility] evaluation + Plan note Future Appointments Appointment Date:04/21/2023 09:45:00 AM Scheduled Provider:Salome LOYA MD Location:[facility] Appointment Type:URO Office Visit [facility] evaluation + Plan note Future Appointments Appointment Date:08/30/2024 10:30:00 AM Scheduled Provider:Salome LOYA MD Location:[facility] Appointment Type:URO Office Visit [facility] evaluation + Plan note Future Appointments Appointment Date:09/26/2025 10:30:00 AM Scheduled Provider:Salome LOYA MD Location:[facility] Appointment Type:URO Office Visit [facility] evaluation noteNo assessment information available [facility] Work Phone: Evaluation note* Diagnosis Onset Date Resolution Status Viral URI acute [facility] [employer] Work Phone: Evaluation noteNo InformationNort [employer] Other Evaluation note* Diagnosis Onset Date Resolution [...] acute Medicare annual wellness visit, subsequent noneactive [facility] Work Phone: Evaluation note* Diagnosis Onset Date Resolution Status ASHD (arteriosclerotic heart disease) acute 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 acute Carotid stenosis, bilateral acute Chronic kidney disease acute Hypercholesterolemia acute Hypertension acute Lumbar spondylosis with myelopathy acute Medicare annual wellness visit, subsequent noneactive History of left common carot id artery stent placement acute [facility] Work Phone: Evaluation note* Diagnosis Onset Date Resolution Status History of left common carotid artery stent placement acute ASHD (arteriosclerotic heart disease) acute 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 acute Carotid stenosis, bilateral acute Chronic kidney disease acute Hypercholesterolemia acute Hypertension acute Lumbar spondylosis with myelopathy acute [facility] Work Phone: Evaluation note* Diagnosis Onset Date Resolution Status ASHD (arteriosclerotic heart disease) acute 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 acute Carotid stenosis, bilateral acute Chronic heart failure with p reserved ejection fraction (HFpEF) acute Chronic kidney disease acute Hypercholesterolemia acute Hypertension acute Lumbar spondylosis with myelopathy acute Nonrheumatic mitral (valve) stenosis acute [facility] Work Phone: Evaluation note* Diagnosis Onset Date Resolution Status ASHD (arteriosclerotic heart disease) acute 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 acute Carotid stenosis, bilateral acute Chronic heart failure with p reserved ejection fraction (HFpEF) acute Chronic kidney disease acute Hypercholesterolemia acute Hypertension acute Lumbar spondylosis with myelopathy acute Nonrheumatic mitral (valve) stenosis acute ASHD (arteriosclerotic heart disease) acute 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 acute Carotid stenosis, bilateral acute Chronic heart failure with p reserved ejection fraction (HFpEF) acute Hypercholesterolemia acute Hypertension acute [facility] Work Phone: Evaluation note* Diagnosis Onset Date Resolution Status ASHD (arteriosclerotic heart disease) acute 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 acute Carotid stenosis, bilateral acute Chronic kidney disease acute Hypercholesterolemia acute Hypertension acute Lumbar spondylosis with myelopathy acute Medicare annual wellness visit, subsequent noneactive [facility] Work Phone: History general Narrative - Reported* Type Description Date Medical History carotid stenosis Medical History HTN Surgical History heart valve replaced 2013 Surgical History left internal carotid angioplas ty and stent 2011 [employer] Other History general Narrative - Reported* Type [...] RIGHT 2019 Hospitalization History SEE SURGICAL HX [employer] Other History general Narrative - Reported* Type [...] 2020 Surgical History ESWL, KIDNEY, RIGHT 2020 Surgical History ESWL, right kidney 05/2023 Hospitalization History SEE SURGICAL HX [employer] Other Hospital course Narrative No data available for this section [facility] No data available for this section [facility] Jose David reason for referral (narrative)* Reason Referral for lumbar foraminal stenosis and left lower extremity weakness. 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 372) Referral Organization [facility] Jenniffer francis Referring Provider First Name Timbo Referring Provider Last Name Jenniffer Referring Provider Specialty Internal Me dicine Referred Organization [facility] Referred Provider Boby Mai Ref[address] [place], [place],[address] Referred Provider Specialty Neurological Surgery Referral Priority [...] Notes Include recent and p revious MRI [employer] Other Chief Complaint and Reason for Visit [...] with myelopathy Medicare annual wellness visit, subsequent Chief Complaint Wellness 1 YR F/U;CAROTID DUPLEX 1130A I65.23 Reason for Visit ASHD (arteriosclerot ic heart disease) 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 Carotid stenosis, bilateral Chronic kidney disease Hypercholesterolemia Hypertension Lumbar spondylosis with myelopathy Medicare annual wellness visit, subsequent History of left common carotid artery stent placement Chief Complaint 1 YR F/U;CAROTID DUP EDER 1130A I65.23 3 month f/u Reason for Visit History of left comm on carotid artery stent placement ASHD (arteriosclerotic heart disease) 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 Carotid stenosis, bilateral Chronic kidney disease Hypercholesterolemia Hypertension Lumbar spondylosis with myelopathy Chief Complaint 3 month f/u Atherosclerotic heart disease, CHF, Reason for Visit ASHD (arteriosclerot ic heart disease) 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 Carotid stenosis, bilateral Chronic heart failure with preserved ejection fraction (HFpEF) Chronic kidney disease Hypercholesterolemia Hypertension Lumbar spondylosis with myelopathy Nonrheumatic mitral (valve) stenosis Chief Complaint 3 month f/u Atherosclerotic heart disease, CHF, I25.10 E78.00 Reason for Visit ASHD (arteriosclerot ic heart disease) 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 Carotid stenosis, bilateral Chronic heart failure with preserved ejection fraction (HFpEF) Chronic kidney disease Hypercholesterolemia Hypertension Lumbar spondylosis with myelopathy Nonrheumatic mitral (valve) stenosis Chief Complaint 3 month f/u Atherosclerotic heart disease, CHF, I25.10 E78.00 I70.213 Reason for Visit ASHD (arteriosclerot ic heart disease) 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 Carotid stenosis, bilateral Chronic heart failure with preserved ejection fraction (HFpEF) Chronic kidney disease Hypercholesterolemia Hypertension Lumbar spondylosis with myelopathy Nonrheumatic mitral (valve) stenosis Chief Complaint 3 month f/u Atherosclerotic heart disease, CHF, I25.10 E78.00 I70.213 discuss test results Reason for Visit ASHD (arteriosclerot ic heart disease) 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 Carotid stenosis, bilateral Chronic heart failure with preserved ejection fraction (HFpEF) Chronic kidney disease Hypercholesterolemia Hypertension Lumbar spondylosis with myelopathy Nonrheumatic mitral (valve) stenosis ASHD (arteriosclerotic heart disease) 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 Carotid stenosis, bilateral Chronic heart failure with preserved ejection fraction (HFpEF) Hypercholesterolemia Hypertension Chief Complaint 3 month f/u Atherosclerotic heart disease, CHF, I25.10 E78.00 I70.213 discuss test results 1 YR F/U; HAD PVR'S DONE Reason for Visit ASHD (arteriosclerot ic heart disease) 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 Carotid stenosis, bilateral Chronic heart failure with preserved ejection fraction (HFpEF) Chronic kidney disease Hypercholesterolemia Hypertension Lumbar spondylosis with myelopathy Nonrheumatic mitral (valve) stenosis ASHD (arteriosclerotic heart disease) 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 Carotid stenosis, bilateral Chronic heart failure with preserved ejection fraction (HFpEF) Hypercholesterolemia Hypertension Chief Complaint Wellness 1 YR F/U;CAROTID DUPLEX 1130A I65.23 Reason for Visit ASHD (arteriosclerot ic heart disease) 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 Carotid stenosis, bilateral Chronic kidney disease Hypercholesterolemia Hypertension Lumbar spondylosis with myelopathy Medicare annual wellness visit, subsequent Chief Complaint Admit Date discuss test results August 31, 2024 10:58am 1 YR F/U; HAD PVR'S DONE September 15 11:48am pvd October 04, 2024 7:06am pvd October 04, 2024 9:43am PVD w/Serve Claudication October 18 8:56am PVD w/Serve Claudication October 18 11:37am 6weeks October 26, 2024 8:58am 4 month f/u October 28, 2024 2:47pm CC Adult Risk Stratification November 042023 10:40am 4 week follow up;pad November 25, 2024 9:58am Reason for Visit Admit Date ASHD (arteriosclerotic heart disease) Oc tober 2023 10:58am 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 August 31, 2024 10:58am Carotid stenosis, bilateral August 10:58am Chronic heart failure with p reserved ejection fraction (HFpEF) August 31, 2024 10:58am Hypercholesterolemia August 31, 2024 10:58am Hypertension August 31, 2024 1 0:58am PAD (peripheral artery disease) September 15, 2024 11:48am PAD (peripheral artery disease) October 18, 2024 8:56am Carotid stenosis, bilateral October 8:58am Chronic heart failure with p reserved ejection fraction (HFpEF) October 26, 2024 8:58am Coronary artery disease invo lving [place] coronary artery of [place] heart [place] October 26, 2024 8:58am Nonrheumatic mitral (valve) stenosis Dec emb2023 8:58am PAD (peripheral artery disease) October 26, 2024 8:58am 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 October 26, 2024 8:58am S/P CABG (coronary artery bypass graft) October 26, 2024 8:58am ASHD (arteriosclerotic heart disease) De cem2023 2:47pm 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 October 28, 2024 2:47pm Carotid stenosis, bilateral October 2:47pm Chronic heart failure with p reserved ejection fraction (HFpEF) October 28, 2024 2:47pm Hypercholesterolemia October 28, 2024 2:47pm Hypertension October 28, 2024 2:47pm Primary insomnia October 28, 2024 2:47pm Chief Complaint Admit Date 1 YR F/U; HAD PVR'S DONE September 15, 2 024 11:48am pvd October 04, 2024 7:06am pvd October 04, 2024 9:43am PVD w/Serve Claudication October 18 024 8:56am PVD w/Serve Claudication October 18, 2 024 11:37am 6weeks October 26, 2024 8:58am 4 month f/u October 28, 2024 2:47pm CC Adult Risk Stratification November 042023 10:40am 4 week follow up;pad November 25, 2024 9:58am I70.213 December 07, 2024 1 2:50pm Reason for Visit Admit Date PAD (peripheral artery disease) September 15, 2024 11:48am PAD (peripheral artery disease) October 18, 2024 8:56am Carotid stenosis, bilateral October 8:58am Chronic heart failure with p reserved ejection fraction (HFpEF) October 26, 2024 8:58am Coronary artery disease invo lving [place] coronary artery of [place] heart [place] October 26, 2024 8:58am Nonrheumatic mitral (valve) stenosis Dec ember 2023 8:58am PAD (peripheral artery disease) October 26, 2024 8:58am 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 October 26, 2024 8:58am S/P CABG (coronary artery bypass graft) October 26, 2024 8:58am ASHD (arteriosclerotic heart disease) 2023 2:47pm 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 October 28, 2024 2:47pm Carotid stenosis, bilateral Miguel 19t h, 2024 2:47pm Chronic heart failure with p reserved ejection fraction (HFpEF) October 28, 2024 2:47pm Hypercholesterolemia October 28, 2024 2:47pm Hypertension October 28, 2024 2:47pm Primary insomnia October 28, 2024 2:47pm Former smoker November 25, 2024 9 :58am PAD (peripheral artery disease) November 25, 2024 9:58am Right leg claudication November 25 9:58am Chief Complaint Admit Date pvd October 04, 2024 7:06am pvd October 04, 2024 9:43am PVD w/Serve Claudication October 18, 024 8:56am PVD w/Serve Claudication October 18 024 11:37am 6weeks October 26, 2024 8:58am 4 month f/u October 28, 2024 2:47pm CC Adult Risk Stratification November 042023 10:40am 4 week follow up;pad November 25, 2024 9:58am I70.213 December 07, 2024 1 2:50pm [facility]LLOW [facility] FROM [facility] December 29, 2024 10:14am Reason for Visit Admit Date PAD (peripheral artery disease) October 18, 2024 8:56am Carotid stenosis, bilateral October 8:58am Chronic heart failure with p reserved ejection fraction (HFpEF) October 26, 2024 8:58am Coronary artery disease invo lving [place] coronary artery of [place] heart [place] October 26, 2024 8:58am Nonrheumatic mitral (valve) stenosis Dec ember 2023 8:58am PAD (peripheral artery disease) October 26, 2024 8:58am 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 October 26, 2024 8:58am S/P CABG (coronary artery bypass graft) October 26, 2024 8:58am ASHD (arteriosclerotic heart disease) De cember 2023 2:47pm 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 October 28, 2024 2:47pm Carotid stenosis, bilateral October 2:47pm Chronic heart failure with p reserved ejection fraction (HFpEF) October 28, 2024 2:47pm Hypercholesterolemia October 28, 2024 2:47pm Hypertension October 28, 2024 2:47pm Primary insomnia October 28, 2024 2:47pm Former smoker November 25, 2024 9 :58am PAD (peripheral artery disease) November 25, 2024 9:58am Right leg claudication November 25 9:58am Advance Directives Advance Directive Response Recorded Date/ Time Advance Directives No March 08 1:37pm Advance Directive Response Recorded Date/ Time Advance Directives Yes December 3:47pm Advance Directive Response Recorded Date/ Time Advance Directives Yes August 16, 2024 2:59pm Advance Directive Response Recorded Date/ Time Advance Directives Yes September 15, 2024 11:47am Summary Purpose Family History Relationship Condition Age at Onset Recorded Date/T marcia father Diabetes mellitus Unknown Unknown Not Specified Unknown Heart disease Unknown Diabetes mellitus Unknown Relationship Condition Age at Onset Recorded Date/T marcia father Diabetes mellitus Unknown Unknown mother Unknown Heart disease Unknown Diabetes mellitus Unknown Relationship Condition Age at Onset Recorded Date/T marcia father Diabetes mellitus Unknown Unknown mother Unknown Heart disease Unknown Diabetes mellitus Unknown sister Heart disease Unknown Additional Source Comments Care Teams (unrecognized sec tion and content) Team Status: Active Member Role Status Dates Timbo Baig DO Primary Care Provider Active Team Status: Inactive Member Role Status Omar Baig DO Primary Care Provide r, Attending Provider Active Start: June 30, 2024 End: June 30, 2024 Team Status: Inactive Member Role Status Omar Baig DO Primary Care Provide r, Referring Provider Active Start: August 16, 2024 End: August 16, 2024 Bertha Hutchins DO Attending Provider Active Sta rt: August 16, 2024 End: August 16, 2024 Team Status: Active Member Role Status Omar Baig DO Primary Care Provide r, Attending Provider Active Start: April 07, 2024 Team Status: Active Member Role Status Omar Baig DO Primary Care Provide r, Attending Provider Active Start: April 17, 2024 Team Status: Active Member Role Status Omar Baig DO Primary Care Provide r, Attending Provider Active Start: April 29, 2024 Team Status: Inactive Member Role Status Dates Timbo Baig DO Primary Care Provider Active Start: May 06, 2024 End: May 06, 2024 Jaylon Finnegan MD Attending Provider Active Start: May 06, 2024 End: May 06, 2024 Team Status: Inactive Member Role Status Omar Baig DO Primary Care Provider Active Start: May 06, 2024 End: May 06, 2024 FREEMAN Cabrera Attending Provider Active Start: May 06, 2024 End: May 06, 2024 Team Status: Inactive Member Role Status Omar Baig DO Primary Care Provide r, Attending Provider Active Start: March 15, 2024 End: March 15, 2024 Team Status: Active Member Role Status Omar Baig DO Primary Care Provide r, Attending Provider Active Start: December 26, 2023 Team Status: Inactive Member Role Status Omar Baig DO Primary Care Provide r, Referring Provider Active Start: January 08, 2024 End: January 08, 2024 FREEMAN Go Attending Provider Active Start: January 08, 2024 End: January 08, 2024 Team Status: Inactive Member Role Status Omar Baig DO Primary Care Provider Active Jaylon Finnegan MD Attending Provider Active Team Status: Inactive Member Role Status Dates ANDERSON Almaraz Attending Provider Active Team Status: Inactive Member Role Status Omar Baig DO Primary Care Provider Active FREEMAN Cabrera Attending Provider Active Team Status: Active Member Role Status Dates Abimael Cruz MD Turner Machine Operator Active Timbo Baig DO Primary Care Provider Active Team Status: Inactive Member Role Status Omar Baig DO Primary Care Provider Active Start: August 25, 2024 End: August 25, 2024 Bertha Hutchins DO Attending Provider Active Sta rt: August 25, 2024 End: August 25, 2024 Abimael Cruz MD Referring Provider Activ e Start: August 25, 2024 End: August 25, 2024 Team Status: Inactive Member Role Status Omar Baig DO Primary Care Provider Active Start: August 26, 2024 End: August 26, 2024 Bertha Hutchins DO Attending Provider Active Sta rt: August 26, 2024 End: August 26, 2024 Team Status: Inactive Member Role Status Omar Baig DO Primary Care Provide r, Attending Provider Active Start: August 31, 2024 End: August 31, 2024 Team Status: Inactive Member Role Status Omar Baig DO Primary Care Provider Active Start: September 15, 2024 End: September 15, 2024 Jaylon Finnegan MD Attending Provider Active Start: September 15, 2024 End: September 15, 2024 Team Status: Active Member Role Status Dates Timbo Baig DO Primary Care Provider Active Start: May 06, 2024 FREEMAN Cabrera Attending Provider Active Start: May 06, 2024 Team Status: Inactive Member Role Status Dates Timbo Baig DO Primary Care Provider Active Start: October 04, 2024 End: October 04, 2024 Jaylon Finnegan MD Attending Provider Active Start: October 04, 2024 End: October 04, 2024 Team Status: Active Member Role Status Dates Timbo Baig DO Primary Care Provider Active Start: October 04, 2024 Jaylon Finnegan MD Attending Prov ider, Other Provider Active Start: October 04, 2024 Team Status: Inactive Member Role Status Dates Timbo Baig DO Primary Care Provider Active Start: October 18, 2024 End: October 18, 2024 Jaylon Finnegan MD Attending Provider Active Start: October 18, 2024 End: October 18, 2024 Team Status: Active Member Role Status Dates Timbo Baig DO Primary Care Provider Active Start: October 18, 2024 Jaylon Finnegan MD Attending Prov ider, Other Provider Active Start: October 18, 2024 Team Status: Inactive Member Role Status Dates Timbo Baig DO Primary Care Provider Active Start: October 26, 2024 End: October 26, 2024 Abimael Cruz MD Attending Provider Activ e Start: October 26, 2024 End: October 26, 2024 Team Status: Inactive Member Role Status Dates Timbo Baig DO Primary Care Provide r, Attending Provider Active Start: October 28, 2024 End: October 28, 2024 Team Status: Active Member Role Status Dates Timbo Baig DO Primary Care Provide r, Attending Provider Active Start: November 04, 2024 Team Status: Inactive Member Role Status Dates Timbo Baig DO Primary Care Provider Active Start: November 25, 2024 End: November 25, 2024 Jaylon Finnegan MD Attending Provider Active Start: November 25, 2024 End: November 25, 2024 Team Status: Inactive Member Role Status Dates Timbo Baig DO Primary Care Provider Active Start: December 07, 2024 End: December 07, 2024 Niya R Ruttino , SOFTWARE INTEGRATOR-C Attending Provider Active Start: December 07, 2024 End: December 07, 2024 Team Status: Inactive Member Role Status Dates Timbo Baig DO Primary Care Provider Active Start: December 29, 2024 End: December 29, 2024 Jaylon Finnegan MD Attending Provider Active Start: December 29, 2024 End: December 29, 2024 Goals (unrecognized section and content) Goals may be documented in a n alternate section REASON FOR VISIT (unrecogniz ed section and content) VASC 1 YR FU; CAROTID DUPLEX 1PWELLNESS MBNo InformationERRORMedication Clarification4 month follow up; CHING's B/L legs at 11:006 month Follow up6 month Follow upMRI resultsface to face for AFO brace- fax note to [phone] (unrecognized sect ion and content) No Status Records FoundNo Status Records FoundNo Status Records FoundNo Status Records FoundNo Status Records Found INFORMATION SOURCE (unrecogn ized section and content) DATE CREATED AUTHOR 03/25/2023 [facility] DATE CREATED AUTHOR AUTHOR'S ORGANIZ ATION 01/16/2024 [facility] DATE CREATED AUTHOR AUTHOR'S ORGANIZ ATION 02/12/2024 [facility] DATE CREATED AUTHOR AUTHOR'S ORGANIZ ATION 09/21/2024 [facility] DATE CREATED AUTHOR AUTHOR'S ORGANIZ ATION 12/18/[address] [facility] FOR RECORDS PERTAINING TO PATIENTS WHO ARE [...] BE BASED ON THE PRIMARY CLINICAL RECORDS. [employer] provides no warranty or guarantee of the accuracy or completeness of information in this document.
[2025-03-25 07:44] LABS: Basophils Percent Auto 0.5 % (0.2-2.0); Eosinophils Absolute Auto 0.5 10^3/uL (0.0-0.7); Eosinophils Percent Auto 7.7 % (0.9-7.0); Hematocrit 41.9 % (42.0-54.0); Hemoglobin 13.7 g/dL (14.0-18.0); Immature Granulocytes Abs Auto 0.01 10^3/uL (0.00-0.03); Immature Granulocytes Pct Auto 0.2 % (0.0-0.5); Lymphocytes Absolute Auto 1.5 10^3/uL (1.2-3.8); Lymphocytes Percent Auto 25.3 % (20.5-60.0); Mean Corpuscular HGB Conc 32.7 g/dL (29.9-35.2); Mean Corpuscular Hemoglobin 30.6 pg (25.9-34.0); Mean Corpuscular Volume 93.7 fL (80.0-94.0); Mean Platelet Volume 11.5 fL (9.5-13.5); Monocytes Absolute Auto 0.5 10^3/uL (0.3-0.8); Monocytes Percent Auto 9.3 % (1.7-12.0); Neutrophils Absolute Auto 3.3 10^3/uL (1.4-6.5); Platelet Count 197 10^3/uL (150-450); Red Blood Count 4.47 10^6/uL (4.70-6.10); Red Cell Distribution Width 14.4 % (11.0-15.0); White Blood Count 5.8 10^3/uL (4.0-11.0)
[2025-03-25 08:11] LABS: Alanine Aminotransferase 23 U/L (16-63); Albumin Globulin Ratio 1.1; Albumin Level 3.5 g/dL (3.4-5.0); Alkaline Phosphatase 70 U/L (46-116); Anion Gap 9.3; Aspartate Amino Transferase 17 U/L (15-37); BUN Creatinine Ratio 14.9; Bilirubin Total 0.7 mg/dL (0.2-1.0); Calcium 9.3 mg/dL (8.5-10.1); Carbon Dioxide 32.9 mmol/L (21.0-32.0); Chloride 106 mmol/L (98-107); Chol HDL Ratio 1.8; Cholesterol 106 mg/dL (<=200); Estimated GFR (African America >60 (>=60 mL/min/1.73m^2); Estimated GFR (Non-African Ame 51 (>=60 mL/min/1.73m^2); Globulin 3.3 g/dL; Glucose 108 mg/dL (74-106); HDL Cholesterol 58 mg/dL (40-60); LDL Cholesterol Calculated 33.6 mg/dL; Potassium 4.2 mmol/L (3.5-5.1); Sodium 144 mmol/L (136-145); TSH W/ REFLEX FT4 4.515 uIU/mL (0.358-3.740); Total Protein 6.8 g/dL (6.4-8.2); Triglycerides 72 mg/dL (<=150); VLDL CHOLESTEROL 14.4 mg/dL
[2025-03-25 08:36] LABS: Free T4 0.95 ng/dL (0.76-1.46)
== END 2025-03-25 07:06 | disposition home or self-care (01) ==
LOC: LAB 07:06
PROVIDERS: PCP Internal Medicine; Visit Provider Internal Medicine
DX: E78.00 Pure hypercholesterolemia, unspecified (principal); I50.32 Chronic diastolic (congestive) heart failure; I25.10 Atherosclerotic heart disease of native coronary artery without angina pectoris; E03.8 Other specified hypothyroidism; R79.89 Other specified abnormal findings of blood chemistry; I11.0 Hypertensive heart disease with heart failure
CPT/HCPCS: 36415; 80053; 80061; 84439; 84443; 85025

== ENCOUNTER 2025-07-30 08:10 | Outpatient (OUT) | payer MEDICARE, OTHER, SELFPAY ==
--- OUTSIDE RECORDS SUMMARY | 2025-07-29 06:54 | XMS_ITS | Continuity of Care Document ---
Author Organization [facility] Address [address] [place] [address] Phone Care Team Providers Care Salvage Grinder Name Role Phone Timbo Baig DO Primary Care Provider [phone] Jaylon Finnegan MD Attending Provider Timbo Baig DO Attending Provider Care Teams Patient Care Team Team Status: Active Member Role Status Dates Abimael Cruz MD Sas Architect Active Timbo Baig DO Primary Care Provider Active Visit Care Team Team Status: Inactive Member Role Status Dates Timbo Baig DO Primary Care Provider Active Start: May 12, 2025 End: May 12, 2025 Jaylon Finnegan MD Attending Provider Active Start: May 12, 2025 End: May 12, 2025 Visit Care Team Team Status: Inactive Member Role Status Dates Timbo Baig DO Primary Care Provider Active Start: May 12, 2025 End: May 12, 2025 Jaylon Finnegan MD Attending Provider Active Start: May 12, 2025 End: May 12, 2025 Patient Care Team Team Status: Inactive Member Role Status Dates Timbo Baig DO Primary Care Provider Active Start: July 29, 2025 End: July 29, 2025 Timbo Baig DO Attending Provider Active Sta rt: July 29, 2025 End: July 29, 2025 Chief Complaint and Reason for Visit Chief Complaint Admit Date 1 YR FOLLOW UP; CHING'S, CAROTID 1O:30A Ju 2024 10:37am I65.23 May 12, 2025 10:38 am 4 month f/u July 29, 2025 9:59am Reason for Visit Admit Date Right-sided extracranial carotid artery stenosis May 12, 2025 10:37am Anemia July 29, 2025 9:59am ASHD (arteriosclerotic heart disease) Se ptember 2024 9:59am 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 July 29, 2025 9:59am Carotid stenosis, bilateral July 292024 9:59am Chronic heart failure with p reserved ejection fraction (HFpEF) July 29, 2025 9:59am Chronic kidney disease July 29, 2 025 9:59am Hypercholesterolemia July 29 9:59am Hypertension July 29, 2025 9:59am Primary insomnia July 29, 2025 9:59am Subclinical hypothyroidism July 9:59am Allergies, Adverse Reactions, Alerts Allergen Type Severity Reaction Last Updated Verified Status No Known Allergies Allergy Unknown Septem 2024 10:02am Yes Active Social History Smoking Status Status Start Date End Date Date of Observa tion Ex-smoker (finding) December 29, 2024 10:19am Observation Status Observation Response Date of Response Legal Sex Male (finding) Sex Assigned At Male 1940 Family History Relationship Condition Age at Onset Recorded Date/T marcia father Diabetes mellitus Unknown Unknown mother Unknown Heart disease Unknown Diabetes mellitus Unknown sister Heart disease Unknown Problems Active Problems Medical Problem Onset Date Status Comments S/P aortic valve replacement with bioprosthetic valve Unknown Active Lumbar radiculopathy, chronic Unknown Active Herniation of intervertebral disc between L5 and S1 Unknown Active History of left common carot id artery stent placement Unknown Active Chronic heart failure with p reserved ejection fraction (HFpEF) Unknown Active Echo: LVEF 60- 65%, normal RV size/function, LAE, diastolic dysfunction, mild MS, Mild - 03/2024 Lumbar spondylosis with myelopathy Unknown Active Medicare annual wellness vis it, subsequent Unknown Active Nonrheumatic mitral (valve) stenosis Unknown Acti ve Primary insomnia Unknown Active Subclinical hypothyroidism Unknown Active Anemia Unknown Active Hypercholesterolemia Unknown Active Chronic kidney disease Unknown Active S/P CABG (coronary artery bypass graft) Unknown A ctive Right-sided extracranial car otid artery stenosis Unknown Active Right leg claudication Unknown Active Coronary artery disease invo lving moapa coronary artery of moapa heart without angina pectoris Unknown Active Former smoker Unknown Active 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 Unknown Active CHING: right 0.9, left 0.8 - 08/2023,CHING: right 0.65, left 0.55 - 08/2024 Elevated TSH Unknown Active PAD (peripheral artery disease) Unknown Active Left foot drop Unknown Active Sacroiliitis, not elsewhere classified Unknown Ac tive Carotid stenosis, bilateral Unknown Active US: left < 50%, right 65-70% - 04/2024 Occlusion of right femoral artery Unknown Active Hypertension Unknown Active ASHD (arteriosclerotic heart disease) Unknown Act cyrus CABG x - 2014,Lexiscan Stress: no fixed or reversible defect - 08/2024 Medications Medication Status Dose Units Route Directions Qty Days St art Date Stop Date End Date Instructions Adherence Clopidogrel 75 mg tablet Discont inued 75 MG PO Daily February 27, 2024 1:29pm January 31, 2025 6:49a m Torsemide 20 mg tablet Discont inued 20 MG PO Daily April 19, 2024 12:00a m April 21, 2024 9:59a m Torsemide 20 mg tablet Discont inued 20 MG PO Daily April 21, 2024 9:58am May 11, 2024 9:39a m Torsemide 20 mg tablet Discont inued 20 MG PO Daily May 11, 2024 9:39am May 14, 2024 8:44a m Torsemide 20 mg tablet Discont inued 0 .ROUTE .COMPLEX May 14, 2024 8:44am May 18, 2024 11:37 am TAKE 1 TABLET BY MOUTH EVERY DAY Torsemide 20 mg tablet Discont inued 0 .ROUTE .COMPLEX May 18, 2024 11:37a m 2023 3:34p m TAKE 1 TABLET BY MOUTH EVERY DAY Metoprolol Succinate 25 mg tablet extended release 24 hr Discont inued 0 .ROUTE .COMPLEX June 07, 2024 9:59am Octob er 2023 2:27p m TAKE 1 TABLET DAILY Atorvastati n 10 mg tablet Discont inued 10 MG PO Daily Novem2023 9:47pm dick 2023 12:54 pm Atorvastati n 80 mg tablet Discont inued 80 MG PO Daily 90 90 Novemb er 2023 12:53p m 2023 2:21p m Atorvastati n 80 mg tablet Discont inued 80 MG PO Daily 90 Novemb er 2023 2:21pm Novem dick 2023 3:34p m Atorvastati n 80 mg tablet Active 80 MG PO Daily 10 10 Novemb er 2023 3:32pm Complies with drug therapy Torsemide 20 mg tablet Discont inued 20 MG PO Daily 10 10 Novemb er 2023 3:33pm Decem dick 2023 8:37a m Torsemide 20 mg tablet Active 0 .ROUTE .COMPLEX Dece 2023 8:37am TAKE 1 TABLET DAILY Complies with drug therapy Clopidogrel 75 mg tablet Active 0 .ROUTE .COMPLEX January 31, 2025 6:49am TAKE 1 TABLET DAILY Complies with drug therapy Tramadol 50 mg tablet Active 50 MG PO Every 8 hours as needed for pain 30 05April 29, 2025 12:00a m may cause sedation Complies with drug therapy Metoprolol Succinate 25 mg tablet extended release 24 hr Active 0 .ROUTE .COMPLEX June 01, 2025 8:36pm TAKE 1 TABLET DAILY Complies with drug therapy Potassium Chloride 10 mEq tablet,ER particles/c rystals Active 0 .ROUTE .COMPLEX June 02, 2025 6:51am TAKE 1 TABLET DAILY Complies with drug therapy Furosemide 40 mg tablet Discont inued 40 MG PO Daily March 15, 2024 12:00a m April 21, 2024 9:59a m Potassium Chloride (Klor-Con M10) 10 mEq tablet,ER particles/c rystals Discont inued 10 MEQ PO Daily March 15, 2024 12:00a m Augus t 2023 10:35 am Tamsulosin 0.4 mg capsule Active 0.4 MG PO Daily March 15, 2024 12:00a m Complies with drug therapy Clopidogrel 75 mg tablet Discont inued 75 MG PO 2023 1:00am February 27, 2024 1:30p m Metoprolol Succinate 25 mg tablet extended release 24 hr Discont inued MG PO 2023 1:00am June 07, 2024 9:59a m Aspirin 81 mg tablet,joaquin yed release (DR/EC) Active 1 TAB PO Daily 2023 1:00am FreeTextSi tablet Orally Once a day; Note: Source Status: Taking; Provider: Jovanni Izquierdo ( ) Complies with drug therapy Atorvastati n 10 mg tablet Discont inued 10 MG PO 2023 1:00am 2023 11:44 pm FreeTextSig: TAKE 1 TABLET EVERY EVENING; Note: Source Status: Taking; Provider: Jovanni Izquierdo ( ) Finasteride 5 mg tablet Discont inued 5 MG PO 2023 1:00am March 12, 2024 4:28p m Tamsulosin 0.4 mg capsule Discont inued MG PO 2023 1:00am March 12, 2024 4:28p m Hydrochloro thiazide 12.5 mg tablet Discont inued 1 TAB PO Daily 2023 1:00am April 26, 2024 3:04p m FreeTextSi tablet in the morning Orally Once a day; Note: Source Status: Taking; Provider: Jovanni Izquierdo ( ) Citalopram 20 mg tablet Discont inued 20 MG PO Daily 2023 1:00am March 12, 2024 4:28p m Potassium Chloride (Klor-Con M10) 10 mEq tablet,ER particles/c rystals Discont inued 10 MEQ PO Daily 90 90 June 30, 2024 10:34a m June 02, 2025 6:51a m Doxepin 6 mg tablet Discont inued 6 MG PO Daily at bedtime as needed for sleep 30 30 Decemb er 2023 1:00am March 18, 2025 10:32 am Cholecalcif jose elias (Vitamin D3) 125 mcg (5,000 unit) capsule Active 125 MCG PO Daily Octobe r 2023 12:00a m Complies with drug therapy Metoprolol Succinate 25 mg tablet extended release 24 hr Discont inued 12.5 MG PO Twice daily Octobe r 2023 2:25pm June 01, 2025 8:37p m Finasteride 5 mg tablet Active 5 MG PO Bedtime Octobe r 2023 12:00a m Complies with drug therapy Citalopram 20 mg tablet Active 20 MG PO Daily Octobe r 2023 12:00a m Complies with drug therapy Immunizations Immunization Event Date Not Given Reason Dose Number 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 Lot Number Vaccine Information Statement (VIS) Detail Administration Location COVID-19 mRNA, Comirnaty (Pfizer) December 19, 2020 COVID-19 mRNA, Comirnaty (Pfizer) January 09, 2021 COVID-19 mRNA, Comirnaty (Pfizer) August 07, 2021 COVID-19 Comirnaty ([employer]) Tri-Sucrose 12+ February 21, 2022 COVID-19 mRNA Bivalent Booster ([employer]) August 04, 2022 Fluzone TIV High-Dose 65YR+ July 29, 2025 [id number] [facility] influenza, unspecified formulation August 19, 2018 influenza, unspecified formulation August 20, 2019 influenza, unspecified formulation August 04, 2022 Pneumococcal Conjugate Vaccine, 13 valent February 16, 2018 Pneumococcal Polysacc. Vaccine, 23 valent February 19, 2019 Zoster Vaccine Recombinant, Adjuvanted May 16, 2021 Zoster Vaccine Recombinant, Adjuvanted September 06, 2021 Medical Equipment Device Date Implanted Device Details Multiple peripheral artery stent, bare-metal October 04, 2024 RADHA: [id number] Issuing Agency: [employer] Device Id: [id number] Expiration Date: 2025-05-09 Lot Number: [id number] Procedures Procedure Date Performed Status US ankle/arm indices May 12, 2025 10:40am comp leted US carotid doppler BI May 12, 2025 10:40am com pleted Relevant Diagnostic Tests and/or Laboratory Data Diagnostic Imaging Reports Author Jaylon Finnegan [facility] Authored May 12, 2025 11:51 am Report Dictated Date/Time Dictated By Status Radiology Report May 12, 2025 11:51am Jaylon Finnegan MD completed [facility] Vascular [address] [place] [address] Ultrasound Report Signed Patient: Max Friedman MR#: [id number] : 1940 Acct:[id number] Age/Sex: 84 / M ADM Date: 5 Loc: [facility] Room: Type: REG CLI Attending Dr: Jaylon Finnegan MD Ordering Provider: Jaylon Finnegan MD Date of Service: 05/12/25 US/US ankle/arm indices: I70.213 - Atherosclerosis of mo[place] arteries of extremiti... Copies to: Jaylon Finnegan MD~ LOWER EXTREMITY SEGMENTAL ARTERIAL DOPSCAN (PVR) INDICATION: Right leg claudication. PROCEDURE: Right arm blood pressure is 105 , left is 112 . Pressures of the right leg are 88 at the ankle using the posterior tibial artery and 82 at the ankle using the dorsalis pedis artery with ankle-brachial index of 0.73 0.79 . Pressures of the left leg are 119 at the ankle using the posterior tibial artery and 112 at the ankle using the dorsalis pedis artery with ankle-brachial index of 1.00 1.06 . Wave forms by plethysmography are biphasic, bilaterally. 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 Impression dictated by: Jaylon Finnegan MD,FACS,FSVS 05/12/2025 11:51 AM Dictation Location: [place] [address] Tech: Pam Sheehan Transcribed By: DANIEL 05/12/25 1151 Dictated By: Jaylon Finnegan MD 05/12/25 1151 Signed By: <Electronically signed by Jaylon Finnegan MD in OV> 05/12/25 1151 Author Jaylon Finnegan [facility] Authored May 12, 2025 11:51 am Report Dictated Date/Time Dictated By Status Radiology Report May 12, 2025 11:51am Jaylon Finnegan MD completed [facility] Vascular [address] [place] [address] Ultrasound Report Signed Patient: Max Friedman MR#: [id number] : 1940 Acct:[id number] Age/Sex: 84 / M ADM Date: 5 Loc: [facility] Room: Type: REG CLI Attending Dr: Jaylon Finnegan MD Ordering Provider: Jaylon Finnegan MD Date of Service: 05/12/25 US/US carotid doppler BI: I65.23 - Occlusion and stenosis of bilateral carotid avila... Copies to: Jaylon Finnegan MD~ CAROTID DUPLEX INDICATION: Surveillance study for known left carotid stent and known right- sided stenoses. PROCEDURE: Color-flow duplex scanning is used to interrogate the extracranial carotid arterial system, as well as both vertebral arteries. Both carotid bifurcations show moderate to severe heterogeneous plaque formation. The right proximal internal carotid artery shows a highest peak systolic velocity of 345 cm/s with an end-diastolic velocity of 96.8 cm/s . The mid internal carotid artery measures 225 cm/s peak systolic with an end diastolic velocity of 75.5 cm/s . The distal segment measures 87.8 cm/s peak systolic and 33.5 cm/s end diastolic. The velocities of the right common carotid artery are 97.3 cm/s peak systolic and 19.7 cm/s end-diastolic proximally and 81.6 cm/s peak systolic and 20.6 cm/s end-diastolic distally. The peak systolic velocity ratio of the internal to the common carotid artery is 4.23 . The right external carotid artery measures 203 cm/s peak systolic. The right vertebral artery is patent at 59.5 cm/s peak systolic with antegrade flow. The left proximal internal carotid artery shows a highest peak systolic velocity of 185 cm/s with an end-diastolic velocity of 65.9 cm/s . The mid internal carotid artery measures 158 cm/s peak systolic with an end diastolic velocity of 48.5 cm/s . The distal segment measures 71.8 cm/s peak systolic and 23.1 cm/s end diastolic. The velocities of the left common carotid artery are 108 cm/s peak systolic and 22.5 cm/s end-diastolic proximally and 99.9 cm/s peak systolic and 24.7 cm/s end-diastolic distally. The peak systolic velocity ratio of the internal to the common carotid artery is 1.85 . The left external carotid artery measures 168 cm/s peak systolic. The left vertebral artery is patent at 73.5 cm/s peak systolic with antegrade flow. . US/US carotid doppler BI IMPRESSION: MODERATE TO SEVERE PLAQUE FORMATION IS NOTED BILATERAL EXTRACRANIAL CAROTID ARTERIES. GREATER THAT 70% STENOSIS IS PRESENT IN THE RIGHT INTERNAL CAROTID ARTERY. A VASCULAR SURGERY CONSULTATION IS RECOMMENDED FOR FURTHER EVALUATION WITH A CAROTID ARTERIOGRAM. Impression dictated by: Jaylon Finnegan MD,FACS,FSVS 05/12/2025 11:52 AM Dictation Location: [place] [address] Tech: Merle Donaldson Transcribed By: PWS 05/12/25 1152 Dictated By: Jaylon Finnegan MD 05/12/25 1151 Signed By: <Electronically signed by Jaylon Finnegan MD in OV> 05/12/25 1152 Vital Signs Vital Reading Result Reference Range Collection Date/Time Height 70 [in_i] May 12, 2025 11:07am Weight 87.08 kg May 12, 2025 11:07am Body Temperature 98.1 [degF] 97.6-99.0 May 12, 025 11:07am Heart Rate 51 /min 60-100 May 12, 2025 11:07am Oxygen saturation by Pulse oximetry 99 % 95-100 May 12, 2025 11:07 am BP Systolic 90 mm[Hg] 100-140 May 12, 2025 11:18am BP Diastolic 68 mm[Hg] 60-100 May 12, 2025 11:18am BMI (Body Mass Index) 27.5 kg/m2 May 122024 11:07am Height 70 [in_i] July 29, 2025 10:06am Weight 86.80 kg July 29, 2025 10:06am Heart Rate 72 /min 60-100 July 29, 2025 10:06am Respiratory rate 12 /min 12-24 July 112024 10:06am BP Systolic 122 mm[Hg] 100-140 July 29, 2025 10:06am BP Diastolic 67 mm[Hg] 60-100 July 29, 2025 10:06am BMI (Body Mass Index) 27.4 kg/m2 2024 10:06am Advance Directives Advance Directive Response Recorded Date/ Time Advance Directives Yes September 15, 2024 12:47pm Insurance Providers Guarantor Max Friedman Address [address] [facility] [address] Contact Info. Home Phone: Payer Policy Id Subscriber's Name Subscriber Id Melita ctive Date Expiration Date Medicare [id number] Max Friedman [id number] [employer] [id number] Max Friedman [id number] [facility] [id number] Encounters Encounter Location(s) Arrival/Admit Date Discharge/Depart Date Provider(s) Departed Physician/Prov ider Office Visit -[facility] Vascular Surg May 12, 2025 10:37am May 12, 2025 11:26am Jaylon Finnegan MD Departed Clinical -Ultrasound [facility] May 12, 2025 10:38am May 12, 2025 10:39am Jaylon Finnegan MD Departed Physician/Prov ider Office Visit -[facility] July 29, 2025 9:59am July 29, 2025 10:53am Timbo Baig DO Recent Diagnosis Onset Date Admit Date Right-sided extracranial car otid artery stenosis Unknown May 12, 2025 10:37am Anemia Unknown July 29, 2025 9:59am ASHD (arteriosclerotic heart disease) Unknown July 29, 2025 9:59am 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 Unknown July 29, 2025 9:59am Carotid stenosis, bilateral Unknown Jul 9:59am Chronic heart failure with p reserved ejection fraction (HFpEF) Unknown July 29, 2025 9:59am Chronic kidney disease Unknown July 29, 2025 9:59am Hypercholesterolemia Unknown July 112024 9:59am Hypertension Unknown July 29, 2025 9:59am Primary insomnia Unknown July 29, 2025 9:59am Subclinical hypothyroidism Unknown 2024 9:59am Assessments Diagnosis Onset Date Resolution Status Admit Date Right-sided extracranial car otid artery stenosis acute May 12, 2025 1 0:37am Anemia acute July 9:59am ASHD (arteriosclerotic heart disease) acute July 29, 2025 9:59am 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 acute July 29, 2025 9:59am Carotid stenosis, bilateral acute July 29, 2025 9:59am Chronic heart failure with preserved ejection fraction (HFpEF) acute July 29, 2025 9:59am Chronic kidney disease acute Se ptember 2024 9:59am Hypercholesterolemia acute Jul 9:59am Hypertension acute July 292024 9:59am Primary insomnia acute Julembe r 2024 9:59am Subclinical hypothyroidism acute July 29, 2025 9:59am Plan of Treatment Author Timbo Baig [facility] Authored July 29, 2025 10:48am This patient is stable witho ut activity related chest pain, dyspnea or lightheadedness. I instructed them to continue exercise at least 3x weekly and consume a low salt, low fat, high fiber diet. I instructed them to continue secondary prevention measures in reducing risks for recurrent events. s/p CABG x 2014 - OM1 Stres testing w/o ischemia - 08/2024 Continue ASA, Atorvastatin, Metoprolol without interruption I have instructed this patient on a low salt diet, exercise and daily weights. I have instructed them to notify the office for any on any unexpected weight gain > 3lbs and /or increased dyspnea on exertion, difficulty breathing during sleep, worsening lower extremity swelling, chest pain or lightheadedness. I have reviewed the GDMT with beta blockers, CARLITOS/ARB or ARNI, MRA and a SGLT-2i. Recently developed fluid overload condition, which resolved w/ increasing dose of diuretic for several day. Instructed on daily weights to assess volume status Echo: LVEF 60-65%, normal RV size/function, LAE, diastolic dysfunction, mild MS, Mild - 03/2024 I have instructed this patient to consume a healthy, low-fat, low-salt diet. I have also encouraged them to continue exercise with weight loss to achieve/maintain a BMI < 30. I have instructed this patient on the correct procedure for obtaining home BP measurements: - rest for 5 minutes w/o talking. - positioned w/ feet on floor and arms supported. - average best 2/3 readings w/ goal < 135/85. - update office w/ home readings in 2 weeks. Continue Metoprolol without interruption I instructed this patient on the benefits of adequate control of hypertension and diabetes, if appropriate. I have also instructed them to avoid use of NSAIDs due to the adverse effects on renal function. I instructed them on adequate fluid balance and to consume at least 48 oz of fluids daily. I also instructed them to monitor for an unexplained increase in weight and lower extremity edema. They have been instructed to notify the office for any changes or concerns. Severe disease, instructed to walk daily until develop pain, rest and restart. Instructed to inspect feet daily for ulcers. Continue secondary prevention measures. S/P B/L angioplasty proximal vessels - left 09/2024, right 10/2024 Re-occlusion right femoral artery - conservative treatment Continue ASA, Plavix and Atorvastatin without interruption No s/s of acute, focal neurologic deficits. I have reviewed stroke symptoms and instructed them to go to the ER for any suspicious symptoms. They have been instructed to continue secondary preventive measures. s/p Left Carotid stent placement Carotid US: left < 50%, right 50-69% - 04/2024 f/u vascular surgery - continue serial carotid US I have instructed this patient on a low fat, high fiber diet and exercise. I have discussed the primary and secondary prevention benefits attributed to lowering LDL cholesterol. I have also discussed the medical treatment of elevated cholesterol, which is based on the 10 year ASCVD risk. Continue Atorvastatin without interruption Instructed on consistent sleep routine. Avoid exercise, TV, phone, computer or food prior to bedtime. Instructed to avoid daytime naps. Instructed to read or listen to music prior to bedtime, as a way to wind down and relax. Trial of Doxepin 6mg q HS Subtle elevation in TSH Recheck along w/ reflex for FT4 if elevated c/o insomnia w/ daytime somnolence No s/s GIB Recommend rechecking H/H as well as B12, FA and Fe Author Jaylon Finnegan [facility] Authored May 12, 2025 11:37 am I reviewed the carotid duple x today. The patient now has greater than 70% stenoses of the right ICA based on ICA/CCA ratio and both systolic and diastolic velocities. The patient also has retrograde right vertebral flow with a decreased blood pressure in the right arm. This implies right subclavian artery occlusion. I did inform the patient that he should only have blood pressures taken on the left arm moving forward. He agrees with this. I offered this patient a CT angiogram to further delineate the stenosis in the right side or repeat ultrasound in 3 months. He chose the latter. We will see him in 3 months. I informed him to call me should he develop any neurologic symptoms such as stroke or mini stroke or weakness of extremity or slurred speech. He understands and agrees the plan. Future Tests Future scheduled test information is unavailable Pending Tests Test Name Ordered Date Scheduled Date US carotid doppler RT May 12, 2025 11:29am 2 M [facility] Future Visits Future appointment information is unavailable Referrals to Other Providers Referral information is unavailable Future Procedures Procedure Name Ordered Date Scheduled Date Thyroid Stim Hormone w/Rflx July 29, 2025 10:44am Vitamin B12 July 29, 2025 10:43am Basic Metabolic Panel July 29, 2025 10:43 am Ferritin July 29, 2025 10:43am Folate July 29, 2025 10:43am Future Medications Future medication information is unavailable Patient Instructions Patient instructions are unavailable
--- OUTSIDE RECORDS SUMMARY | 2025-07-30 08:14 | XMS_ITS | CCD ---
Author Organization [facility] CliniSyaz Care Team Providers Care Management Advisor Name Role Phone TIMBO BAIG Primary Care Physician DO Timbo Baig Primary Care Provider [phone] MD Jaylon Finnegan Attending Provider [phone] Niya Baker Unavailable Timbo Baig Unavailable JENNIFFER, DR IZQUIERDO Admitting Unavailable BALL, DR IZQUIEDRO Attending Unavailable BALL, DR IZQUIERDO Primary Care Unavailable JENNIFFER, DR IZQUIERDO Consulting Unavailable JENNIFFER, DR IZQUIERDO Admitting Unavailable JENNIFFER, DR IZQUIERDO Attending Unavailable JENNIFFER, DR IZQUIERDO Primary Care Unavailable PARVIZ, TITA Admitting Unavailable PARVIZ, TITA Attending Unavailable JENNIFFER, DR IZQUIERDO Primary Care Unavailable TITA RIVERA Consulting Unavailable JENNIFFER, DR IZQUIERDO Admitting Unavailable JENNIFFER, DR IZQUIERDO Attending Unavailable JENNIFFER, DR IZQUIERDO Primary Care Unavailable BALL, DR IZQUIERDO Consulting Unavailable LOYA ., DR MCMAHON Admitting Unavailable LOYA ., DR MCMAHON Attending Unavailable BALL, DR IZQUIERDO Primary Care Unavailable LOYA ., DR MCMAHON Consulting Unavailable SAULSBURY, DR IVY Jenkins Consulting Unavailable ANDERSON Ann Attending Provider DO Timbo Baig Primary Care Provider [phone] FREEMAN Baker Attending Provider Jaylon Finnegan Unavailable [phone] DO Timbo Baig Primary Care Provider FREEMAN Baker Attending Provider TITA RIVERA Attending Unavailable TITA RIVERA Attending Unavailable NAVNEET BLANC Attending Unavailable RADHA THOMSON Referring Unavailable DO Timbo Baig Primary Care Provider FREEMAN Baker Attending Provider Ball, Timbo Primary Care Provider Twohig, DO Bertha Pittman Attending Provider [phone] MD Abimael Cruz Referring Provider Ball, DO Izquierdo Primary Care Provider Twohig, DO Bertha Pittman Attending Provider MD Abimael Cruz Referring Provider Salome LOYA Attending Unavailable Salome LOYA Attending Unavailable Jenniffer GARCIA Timbo Primary Care Provider Jaylon Finnegan MD Attending Provider Samuel MANAGER CREDIT COLLECTIONS-CNiya Attending Provider Timbo Baig DO Primary Care Provider Timbo Baig DO Attending Provider Jaylon Finnegan MD Attending Provider Jaylon Finnegan Admitting Unavailabl e Kain, Jaylon Lepe Attending Unavailabl e [facility] Primary [facility] Unavailable Kain, Jaylon T Admitting Unavailabl e Kain, Jaylon Lepe Attending Unavailabl e [facility] Primary Care Unavailable Kain, Jaylon Lepe Admitting Unavailabl e Langenberg, Jaylon Lepe Attending Unavailabl e [facility] Primary Care Unavailable Twohig, Ling D [facility]ending Un[facility] Twohig, Ling D Admitting Unavailable Twohig, Ling D Attending Unavailable Abimael Cruz Referring Unavai Timbo Guillen Primary Care Unavailable Twohig, Ling D Admitting Unavailable Twohig, Ling D Attending Unavailable [facility] Unavailable Twohig, Ling D Admitting Unavailable Niya Baker Admitting Unavailable Niya Baker Attending Unavailable [facility] Primary [facility] Unavailable Jenniffer GARCIA Timbo Primary Care Provider Timbo Baig DO Attending Provider [phone] Allergies Allergy Classification Reported Allergen(s) Allergy Type Date of Onset Reaction(s) Facility (1 source) patient allergy list reviewed by nurse or physicia Propensity to adverse reactions 9 Comment:Done Sontra Other (1 source) No Known Medication Allergies; Translations: [No Known Medication Allergies] Propensity to adverse reactions (disorder) [facility] Repository Medications Current Medications Medication Drug [...] Status: Taking; Provider: Jenniffer Izquierdo ( ) Complies with drug therapy Start: 05-17-2019 take 1 mg by mouth once daily aspirin 81 mg oral tablet mg tab(s), Oral, Daily, Refills(s) 0 Start Date: 05/17/19 Status: Ordered take 1 tablet by sarah th every twenty-four hours Aspirin 81 MG 1 tablet Orally Once a day Active cholecalciferol 0.125 mg oral capsule (13 sources) Vitamin D Start: 08-16-2024 take 1 capsule by mouth once daily Cholecalciferol (Vitamin D3) 125 mcg (5,000 unit) capsule Active 125 MCG PO Daily August 16, 2024 12:00am Complies with drug therapy citalopram 20 mg oral tablet (20 sources) Serotonin Reuptake Inhibitor Start: 08-16-2024 take 1 tablet by mouth once daily Citalopram 20 mg tablet Active 20 MG PO Daily August 16, 2024 12:00am Complies with drug therapy Start: 05-17-2019 End: 03-12-2024 take 1 tablet by mouth once daily Citalopram 20 mg tablet Discontinued 20 MG PO Daily January 08, 2024 1:00am March 12, 2024 4:28pm take 1 tablet by sarah th every twenty-four hours clopidogrel 75 mg oral tablet (20 sources) P2Y12 Platelet Inhibitor Start: 01-31-2025 Clopidogrel 75 mg tablet Active 0 .ROUTE .COMPLEX 90 January 31, 2025 6:49am TAKE 1 TABLET DAILY Complies with drug therapy Start: 05-17-2019 End: 01-31-2025 Clopidogrel 75 mg tablet Dis continued 75 MG PO January 08, 2024 1:00am February 27, 2024 1:30pm finasteride 5 mg oral tablet (20 sources) 5-alpha Reductase Inhibitor Start: 08-16-2024 take 1 tablet by mouth at bedtime Finasteride 5 mg tablet Active 5 MG PO Bedtime August 16, 2024 12:00am Complies with drug therapy Start: 01-08-2024 End: 03-12-2024 Finasteride 5 mg tablet Disc ontinued 5 MG PO January 08, 2024 1:00am March 12, 2024 4:28pm Start: 10-31-2021 take 1 tablet by sarah th once daily finasteride 5 mg Tab 5 mg = 1 tab(s), Oral, Daily, # 90 tab(s), Refills(s) 3, Pharmacy: [facility], 152, cm, 04/19/22 10:18:00 EDT, Height/Length Dosing, 89.2, kg, 04/19/22 10:18:00 EDT, Weight Dosing Start Date: 02/12/23 Status: Ordered Finasteride Acti ve 24 hr metoprolol succinate 25 mg extended release oral tablet (20 sources) beta-Adrenergic Marilyn Start: 06-01-2025 Metopr olol Succinate 25 mg tablet extended release 24 hr Active 0 .ROUTE .COMPLEX June 01, 2025 8:36pm TAKE 1 TABLET DAILY Complies with drug therapy Start: 08-16-2024 End: 06-01-2025 take 2 tablets by mouth twice daily Metoprolol Succinate 25 mg tablet extended release 24 hr Discontinued 12.5 MG PO Twice daily August 16, 2024 2:25pm June 01, 2025 8:37pm Start: 08-16-2024 take 12.5 mg by mout h twice daily Metoprolol Succinate Active 12.5 MG PO Twice daily August 16, 2024 1:25pm Start: 06-07-2024 End: 08-16-2024 Metoprolol Succinate 25 mg t ablet extended release 24 hr Discontinued 0 .ROUTE .COMPLEX 90 June 07, 2024 9:59am August 16, 2024 2:27pm TAKE 1 TABLET DAILY Start: 06-07-2024 End: 08-16-2024 Metoprolol Succinate 25 mg t ablet extended release 24 hr Discontinued 0 .ROUTE .COMPLEX June 07, 2024 8:59am August 16, 2024 1:27pm TAKE 1 TABLET DAILY Start: 06-07-2024 End: 08-16-2024 Metoprolol Succinate Discont inued 0 .ROUTE .COMPLEX June 07, 2024 8:59am [...] hr Discontinued MG PO January 08, 2024 1:00am June 07, 2024 9:59am Start: 01-08-2024 End: 06-07-2024 Metoprolol Succinate Discont [...] 05/17/19 Status: Ordered take 1 tablet by once daily Metoprolol Succinate ER 25 MG 1 tablet Orally Once a day Active Metoprolol Tartr ate 25 MG TAKE 1/2 TABLET TWICE A DAY for 90 Active Multi Vitamin+ (2 sources) Start: 12-20-2019 Multi Vitamin+ Refill(s) 0 Start Date: 12/20/19 Status: Ordered microencapsulated potassium chloride 10 meq extended release oral tablet (20 sources) Start: 06-02-2025 Potassium Chlo ride 10 mEq tablet,ER particles/crystals Active 0 .ROUTE .COMPLEX June 02, 2025 6:51am TAKE 1 TABLET DAILY Complies with drug therapy Start: 09-20-2024 Potassium Chlo ride (Vaw-Dhck-Bqq M10) 10 mEq oral tablet, extended release 10 mEq = 1 tab(s), Refills(s) 0 Start Date: 09/20/24 Status: Ordered Start: 03-15-2024 End: 06-02-2025 Potassium Chloride (Klor-Con M10) 10 mEq tablet,ER particles/crystals Discontinued 10 MEQ PO Daily 90 90 June 30, 2024 10:34am June 02, 2025 6:51am simvastatin 20 mg oral tablet (4 sources) [...] MG PO Daily March 15, 2024 12:00am Complies with drug therapy Start: 01-08-2024 End: 03-12-2024 Tamsulosin 0.4 mg capsule Discontinued MG PO January 08, 2024 1:00am March 12, 2024 4:28pm Start: 01-08-2024 End: 03-12-2024 Tamsulosin Discontinued MG P O January 08, 2024 12:00am March 12, 2024 3:28pm Start: 08-25-2023 take 1 capsule by [facility] once daily tamsulosin 0.4 mg Cap 0.4 mg = 1 cap(s), Oral, Daily, # 90 cap(s), Refills(s) 3, Pharmacy: [facility], 178, cm, 08/25/23 12:26:00 EDT, Height/Length Dosing, 90, kg, 08/25/23 12:26:00 EDT, Weight Dosing Start Date: 08/25/23 Status: Ordered take 1 capsule by [facility] every twenty-four hours torsemide 20 mg oral tablet (20 sources) Loop Diuretic Start: 10-25-2024 Torsemide 20 m g tablet Active 0 .ROUTE .COMPLEX 90 October 25, 2024 8:37am TAKE 1 TABLET DAILY Complies with drug therapy Start: 10-05-2024 End: 10-25-2024 take 1 tablet by mouth once daily Torsemide 20 mg tablet Discontinued 20 MG PO Daily 08 19October 05, 2024 3:33pm October 25, 2024 8:37am Start: 09-20-2024 take 1 tablet by sarah th once daily torsemide 20 mg Tab 20 mg = 1 tab(s), Oral, Daily, Refills(s) 0 Start Date: 09/20/24 Status: Ordered Start: 05-14-2024 End: 10-05-2024 take 1 tablet by mouth once daily Torsemide 20 mg tablet Discontinued 0 .ROUTE .COMPLEX May 18, 2024 11:37am October 05, 2024 3:34pm TAKE 1 TABLET BY MOUTH EVERY DAY Start: 04-19-2024 End: 05-14-2024 take 1 tablet by mouth once daily Torsemide 20 mg tablet Discontinued 20 MG PO Daily May 11, 2024 9:39am May 14, 2024 8:44am traMADol hydrochloride 50 mg oral tablet (4 sources) Opioid Agonist Start: 04-29-2025 take 1 tablet by mouth every eight hours as needed for pain Tramadol 50 mg tablet Active 50 MG PO Every 8 hours as needed for pain 30 05April 29, 2025 12:00am may cause sedation Complies with drug therapy Completed/Discontinued Medications Medication Drug Class(es) Dates Sig (Normalized) Sig (Original) atorvastatin 80 mg oral tablet (20 sources) HMG-CoA Reductase Inhibitor Start: 09-21-2024 End: 10-05-2024 take 1 tablet by mouth once daily Atorvastatin 80 mg tablet Discontinued 80 MG PO Daily September 21, 2024 2:21pm October 05, 2024 3:34pm Start: 04-21-2023 End: 09-21-2024 take 1 tablet by mouth once daily in the evening Atorvastatin 10 mg tablet Discontinued 10 MG PO January 08, 2024 1:00am September 13, 2024 11:44pm FreeTextSig: TAKE 1 TABLET EVERY EVENING; Note: Source Status: Taking; Provider: Jenniffer Izquierdo ( ) doxepin 6 mg oral tablet (7 sources) Tricyclic Antidepressant Start: 10-28-2024 End: 03-18-2025 take 1 tablet by mouth once daily at bedtime as needed for sleep Doxepin 6 mg tablet Discontinued 6 MG PO Daily at bedtime as needed for sleep October 28, 2024 1:00am March 18, 2025 10:32am furosemide 40 mg oral tablet (17 sources) Loop Diuretic Start: 03-15-2024 End: 04-21-2024 take 1 tablet by mouth once daily Furosemide 40 mg tablet Discontinued 40 MG PO Daily March 15, 2024 12:00am April 21, 2024 9:59am hydroCHLOROthiazide 12.5 mg oral tablet (20 sources) Thiazide Diuretic Start: 01-08-2024 End: 04-26-2024 take 1 tablet by mouth once daily in the morning Hydrochlorothiazide 12.5 mg tablet Discontinued 1 TAB PO Daily January 08, 2024 1:00am April 26, 2024 3:04pm FreeTextSi tablet in the morning Orally Once a day; Note: Source Status: Taking; Provider: Jenniffer Izquierdo ( ) Start: 08-25-2023 take 1 capsule by mo uth once daily hydrochlorothiazide 12.5 mg Cap 12.5 mg = 1 cap(s), Oral, Daily, # 90 cap(s), Refills(s) 3, Pharmacy: [facility], 178, cm, 08/25/23 12:26:00 EDT, Height/Length Dosing, 90, kg, 08/25/23 12:26:00 EDT, Weight Dosing Start Date: 08/25/23 Status: Ordered Start: 12-28-2021 take 1 capsule by mo uth once daily hydrochlorothiazide 12.5 mg Cap 12.5 mg = 1 cap(s), Oral, Daily, # 90 cap(s), Refills(s) 3, Pharmacy: [facility], 152, cm, 08/27/21 10:12:00 EDT, Height/Length Dosing, 89, kg, 08/27/21 10:12:00 EDT, Weight Dosing Start Date: 12/28/21 Status: Ordered Start: 10-31-2021 take 12.5 mg by mout h once daily Hydrochlorothiazide Active 12.5 MG PO Daily October 31, 2021 1:00am Problems Active Problems Problem Classification Problem Date Documented Date Episodic/Chronic Acquired foot deformities (20 sources) Foot drop, left foot; Translations: [Foot-drop] [...] Coronary arteriosclerosis; Translations: [Atherosclerotic heart disease of [place] coronary artery without angina pectoris] Onset: 09-15-2018 05-17-2019 Chronic Comment on above: CABG x 2014 ,Lexiscan Stress: no fixed or reversible defect - 08/2024 Coronary atherosclerosis and other heart disease (3 sources) Presence of aortocoronary bypass graft; Translations: [Aortocoronary bypass status] 10-26-2024 Episodic Deficiency and other anemia (2 sources) Anemia; Translations: [Anemia, unspecified] 07-29-2025 Episodic Disorders of lipid metabolism (20 sources) [...] Onset: 10-27-2015 Chronic Miscellaneous mental health disorders (20 sources) Male erectile disorder; Translations: [Erectile dysfunction] [...] sources) H/O: high risk medication; Translations: [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] Episodic Other aftercare (5 sources) Long-term current use of drug therapy; Translations: [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] Episodic Other and unspecified [...] conditions (not mental disorders or infectious disease) (20 sources) Encounter for screening for malignant neoplasm of colon; Translations: [Raised TSH level] Onset: 09-18-2018 04-07-2024 Episodic Peripheral and visceral atherosclerosis (20 sources) 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; Translations: [Atherosclerosis of [place] arteries of extremities with intermittent claudication, bilateral legs] Onset: 09-15-2018 Chronic Comment on above: CHING: right 0.9, left 0.8 - 08/2023,CHING: right 0.65, left 0.55 - 08/2024 Residual codes; unclassified (3 sources) H/O: anticoagulant therapy 05-17-2019 Episodic Residual codes; unclassified (15 sources) Past history of procedure; Translations: [Other specified postprocedural states] 05-06-2024 Episodic Residual codes; unclassified (2 sources) Other specified postprocedural states; Translations: [Other postprocedural status] 05-06-2024 Episodic Screening and history of mental health and substance abuse codes (17 sources) Ex-smoker; Translations: [History of tobacco use] Onset: 09-15-2018 05-17-2019 Episodic Spondylosis; intervertebral disc disorders; other back problems (20 sources) Lumbar spondylosis with myelopathy; Translations: [Other spondylosis with myelopathy, lumbar region] Chronic Spondylosis; intervertebral disc disorders; other back problems (20 sources) Backache; Translations: [Unspecified backache] Onset: 09-15-2018 01-08-2024 Episodic Sprains and strains (5 sources) Low back strain; Translations: [Strain of muscle, fascia and tendon of lower back, initial encounter] Episodic Thyroid disorders (5 sources) Subclinical hypothyroidism; Translations: [Other specified hypothyroidism] 03-18-2025 Chronic Past or Other Problems Problem Classification Problem [...] Onset: 09-18-2018 Other aftercare (5 sources) Other fdc (current) drug therapy; Translations: [OTH LONGTERM CURRENT DRUG THERAPY] Onset: 09-25-2022 Episodic Other [...] Name Value Interpretation Reference Range Facility US ankle/arm indiceson 05-12 US ankle/[place] [address] Ultrasound Report Signed Patient: Max Brady MR#: [id number] 11 : 1940 Acct:[id number] Age/Sex: 84 / M ADM Date: 05/12/25 Loc: [facility] Room: Type: [facility] Attending Dr: Jaylon Finnegan MD Ordering Provider: Jaylon Finnegan MD Date of Service: 05/12/25 US/US ankle/arm indices: I70.213 - Atherosclerosis of [place] arteries of extremiti... Copies to: Jaylon Finnegan MD LOWER EXTREMITY [...] Finnegan MD,FACS,FSVS 05/12/2025 11:51 AM Dictation Location: [place] [address] Tech: Pam Sheehan Transcribed By: DANIEL 05/12/25 1151 Dictated By: Jaylon Finnegan MD 05/12/25 1151 Signed By: 05/12/25 1151 Normal [facility] US carotid doppler BIon 07-0 US carotid doppler BI [facility] [address] [place] [address] Ultrasound Report Signed Patient: Max Brady MR#: [id number] 11 : 1940 Acct:[id number] Age/Sex: 84 / M ADM Date: 05/12/25 Loc: [facility] Room: Type: [facility] Attending Dr: Jaylon Finnegan MD Ordering Provider: Jaylon Finnegan MD Date of Service: 05/12/25 US/US carotid doppler BI: I65.23 - Occlusion and stenosis of bilateral carotid avila... Copies to: Jaylon Finnegan MD CAROTID DUPLEX INDICATION: Surveillance study for known left carotid stent and known right-sided stenoses. PROCEDURE: Color-flow duplex scanning is used [...] 99.9 cm/s peak systolic and 24.7 cm/s end- diastolic distally. The peak systolic velocity ratio [...] Finnegan MD,FACS,FSVS 05/12/2025 11:52 AM Dictation Location: [place] [address] Tech: Merle Donaldson Transcribed By: DANIEL 05/12/25 1152 Dictated By: Jaylon Finnegan MD 05/12/25 1151 Signed By: 05/12/25 1152 Normal [facility] Basophils Auto (Bld) [#/Vol] on 03-25-2025 Basophils (Bld) [#/Vol] 0.0 10 3/uL 0.0-0.1 [facility] Basophils/100 WBC Auto (Bld) on 03-25-2025 Basophils/100 WBC (Bld) 0.5 % 0.2-2.0 [facility] Cholesterol in LDL Calc [Mas s/Vol]on 03-25-2025 Cholesterol in LDL [Mass/Vol] 33.6 mg/dL [facility] Comment on above: <100 mg/dl [id number] 0-129 mg/dl NEAR OR ABOVE [id number] mg/dl BORDERLINE [id number] mg/dl HIGH>190 mg/dl VERY HIGH Cholesterol in VLDL Calc [Ma ss/Vol]on 03-25-2025 Cholesterol in VLDL [Mass/Vol] 14.4 mg/dL [facility] Eosinophils/100 WBC Auto (Bl d)on 03-25-2025 Eosinophils/100 WBC (Bld) 7.7 % High 0.9-7.0 [facility] Erythrocyte distribution wid th Auto (RBC) [Ratio]on 03-25-2025 Erythrocyte distribution width (RBC) [Ratio] 14.4 % 11.0-15.0 [facility] Estimated glomerular filtrat ion rate (GFR) non- Americanon 03-25-2025 GFR/1.73 sq M.predicted among non-blacks MDRD (S/P/Bld) [Vol rate/Area] 51 mL/min/{1.73_m2} Low >=60 mL/min/1.73m 2 [facility] Globulin Calc (S) [Mass/Vol] on 03-25-2025 Globulin (S) [Mass/Vol] 3.3 g/dL [facility] Hematocrit Auto (Bld) [Volum e fraction]on 03-25-2025 Hematocrit (Bld) [Volume fraction] 41.9 % Low 42.0-54.0 [facility] Hemoglobin [Mass/volume] in Bloodon 03-25-2025 Hemoglobin (Bld) [Mass/Vol] 13.7 g/dL Low 14.0-18.0 [facility] Laboratory - Chemistry and C hemistry - challengeon 03-25-2025 Albumin [Mass/Vol] 3.5 g/dL 3.4-5.0 [facility] ALP [Catalytic activity/Vol] 70 U/L 46-116 [facility] ALT [Catalytic activity/Vol] 23 U/L 16-63 [facility] AST [Catalytic activity/Vol] 17 U/L 15-37 [facility] Bilirubin [Mass/Vol] 0.7 mg/dL 0.2-1.0 [facility] Calcium [Mass/Vol] 9.3 mg/dL 8.5-10.1 [facility] Chloride [Moles/Vol] 106 mmol/L 98-107 [facility] Cholesterol [Mass/Vol] 106 mg/dL <=200 Fi [facility] Cholesterol in HDL [Mass/Vol] 58 mg/dL 40-60 [facility] Comment on above: > or =60 mg/dl - LOW CARDIOVASCULAR RISK<40 mg/dl - HIGH CARDIOVASCULAR RISK CO2 [Moles/Vol] 32.9 mmol/L High 21.0-32.0 [facility] Creatinine [Mass/Vol] 1.34 mg/dL High 0.70-1.30 [facility] Free T4 [Mass/Vol] 0.95 ng/dL 0.76-1.46 [facility] GFR/1.73 sq M.predicted MDRD (S/P/Bld) [Vol rate/Area] mL/min/{1.73_m2} >=60 mL/min/1.73m 2 [facility] Glucose [Mass/Vol] 108 mg/dL High 74-106 [facility] Potassium [Moles/Vol] 4.2 mmol/L 3.5-5.1 [facility] Protein [Mass/Vol] 6.8 g/dL 6.4-8.2 [facility] Sodium [Moles/Vol] 144 mmol/L 136-145 [facility] Triglyceride [Mass/Vol] 72 mg/dL <=150 [facility] TSH Qn 4.515 m[IU]/L High 0.358-3.740 [facility] Urea nitrogen [Mass/Vol] 20.0 mg/dL High 7.0-18.0 [facility] Urea nitrogen/Creatinine [Mass ratio] 14.9 mg/mg [facility] Laboratory - Hematology and Cell countson 03-25-2025 Immature granulocytes/100 WBC (Bld) 0.2 % 0.0-0.5 [facility] Leukocytes [#/volume] correc jose j for nucleated erythrocytes in Blood by Automated counon 03-25-2025 WBC corrected for nucl RBC Auto (Bld) [#/Vol] 5.8 10 3/uL 4.0-11.0 [facility] Lymphocytes Auto (Bld) [#/Vo l]on 03-25-2025 Lymphocytes (Bld) [#/Vol] 1.5 10 3/uL 1.2-3.8 [facility] Lymphocytes/100 WBC Auto (Bl d)on 03-25-2025 Lymphocytes/100 WBC (Bld) 25.3 % 20.5-60.0 [facility] MCH Auto (RBC) [Entitic mass ]on 03-25-2025 MCH (RBC) [Entitic mass] 30.6 pg 25.9-34.0 [facility] MCHC Auto (RBC) [Mass/Vol]on 03-25-2025 MCHC (RBC) [Mass/Vol] 32.7 g/dL 29.9-35.2 [facility] MCV Auto (RBC) [Entitic vol] on 03-25-2025 MCV (RBC) [Entitic vol] 93.7 fL 80.0-94.0 [facility] Monocytes Auto (Bld) [#/Vol] on 03-25-2025 Monocytes (Bld) [#/Vol] 0.5 10 3/uL 0.3-0.8 [facility] Monocytes/100 WBC Auto (Bld) on 03-25-2025 Monocytes/100 WBC (Bld) 9.3 % 1.7-12.0 [facility] Neutrophils Auto (Bld) [#/Vo l]on 03-25-2025 Neutrophils (Bld) [#/Vol] 3.3 10 3/uL 1.4-6.5 [facility] Neutrophils/100 WBC Auto (Bl d)on 03-25-2025 Neutrophils/100 WBC (Bld) 57.0 % 43.0-75.0 [facility] No Panel Informationon 05-16 -2025 Eosinophils # (Auto) 0.5 10 3/uL 0.0-0.7 [facility] Immature Granulocyte # (Auto) 0.01 10 3/uL 0.00-0.03 [facility] Platelet mean volume Auto (B ld) [Entitic vol]on 03-25-2025 Platelet mean volume (Bld) [Entitic vol] 11.5 fL 9.5-13.5 [facility] Platelets Auto (Bld) [#/Vol] on 03-25-2025 Platelets (Bld) [#/Vol] 197 10 3/uL 150-450 [facility] RBC Auto (Bld) [#/Vol]on RBC (Bld) [#/Vol] 4.47 10 6/uL Low 4.70-6.10 [facility] Serum or plasma albumin/glob ulin mass ratioon 03-25-2025 Albumin/Globulin [Mass ratio] 1.1 {ratio} [facility] Serum or plasma anion gap de terminationon 03-25-2025 Anion gap [Moles/Vol] 9.3 mmol/L [facility] Serum or plasma total choles terol/high density lipoprotein (HDL) cholesterol mass dejah 03-25-2025 Cholesterol.total/Cholest jose elias in HDL [Mass ratio] 1.8 {ratio} [facility] Comment on above: 3.3 - 4.4 LOW RISK4. 4 - 7.1 AVERAGE RISK7.1 - 11.0 MODERATE RISK>11.0 HIGH RISK US art pvr/post Yadi 025 US art pvr/post LE [facility] [place] [address] Ultrasound Report Signed with Tracie Patient: Max Brady MR#: [id number] 11 : 1940 Acct:[id number] Age/Sex: 84 / M ADM Date: 12/07/24 Loc: Room: Type: [facility] Attending Dr: Niya Baker MANAGER CREDIT COLLECTIONS-C Ordering Provider: Niya Baker APRN Date of Service: 12/07/24 US/US art pvr/post LE: I70.213 - Atherosclerosis of [place] arteries of extremiti... Copies to: Niya Baker APRN ADDENDUM 1 The right lower extremity exhibited severe disease and critical limb ischemia with ambulation. The right lower extremity CHING dropped to 0.32 during the exercise study. This is considered severe ischemia. Impression dictated by: Jaylon Finnegan MD12/15/2024 5:07 PM Dictation Location: [place] [address] Addendum Dictated By: Jaylon Finnegan MD Addendum [...] Jaylon Finnegan MD12/08/2024 11:26 AM Dictation Location: [place] [address] Tech: Sugey Diaz Transcribed By: DANIEL 12/08/24 1126 Dictated By: Jaylon Finnegan MD 12/08/24 112 Signed By: 12/08/24 1126 Normal [facility] US UNI ankle/arm indiceson 1 12-20-2023 US UNI ankle/arm indices [facility] [place] [address] Ultrasound Report Signed Patient: Max Brady MR#: [id number] 11 : 1940 Acct:[id number] Age/Sex: 84 / M ADM Date: 10/18/24 Loc: Room: Type: [facility] Attending Dr: Jaylon Finnegan MD Ordering Provider: Jaylon Finnegan MD Date of Service: 10/18/24 US/US UNI ankle/arm indices: New post procedure study, right leg only please. Copies to: Jalyon Finnegan MD Right ankle brachial indices Indication [...] Ricky Stephens M.D.10/19/2024 10:37 AM Dictation Location: [place] [address] Tech: Pam Richardsguzman Transcribed By: DANIEL 10/19/24 1037 Dictated By: Ricky Stephens MD 10/19/24 1035 Signed By: 10/19/24 1037 Normal [facility] Blood Urea Nitrogenon 2023 Urea nitrogen [Mass/Vol] 21 mg/dL Normal 06-03 [facility] Comment on above: Performed By: #### C REAT, BUN #### [facility] [address] [place] [address] [place] Creatinineon 10-04-2024 Creatinine [Mass/Vol] 1.40 mg/dL High 0.70-1.30 [facility] Comment on above: Performed By: #### C REAT, BUN #### [facility] [address] [place] [address] [place] Creatinine Clr Calc Pharmacy 45.56 Normal [facility] Comment on above: Result Comment: PERF ORMED BY: [place] [address] PATHOLOGIST TANNING WHEEL OPERATOR DK JONES M.D. Performed By: #### C REAT, BUN #### [address] Estimated GFR 50.182 mL/Min Normal [facility] Comment on above: Performed By: #### C REAT, BUN #### [address] Creatinine [Mass/volume] in Serum or PlasmaOrdered By: Jaylon Finnegan on 10-04-2024 Creatinine [Mass/Vol] Creatinine [Mass/volume] in Serum or Plasma High 0.70-1.30 [facility] No Panel InformationOrdered By: Jaylon Finnegan on 10-04-2024 Estimated GFR (CKD-EPI) 50.182 mL/Min [facility] Creatinine Clearance (Chem 45.56 [facility] US UNI ankle/arm indiceson 1 12-04-2023 US UNI ankle/arm indices [facility] Main [place] [address] [place] [address] Ultrasound Report Signed Patient: Max Brady MR#: [id number] 11 : 1940 Acct:[id number] Age/Sex: 84 / M ADM Date: 10/04/24 Loc: Room: Type: [facility] Attending Dr: Jaylon Finnegan MD Ordering Provider: [...] Jaylon Finnegan MD10/04/2024 3:03 PM Dictation Location: [facility] Tech: Mercedes Bella Transcribed By: [facility] 10/04/24 1503 Dictated By: Jaylon Finnegan MD 10/04/24 1502 Signed By: 10/04/24 1503 Normal [facility] Urea nitrogen [Mass/volume] in Serum or PlasmaOrdered By: Jaylon Finnegan on 10-04-2024 Urea nitrogen [Mass/Vol] Urea nitrogen [Mass/volume] in Serum or Plasma 06-03 [facility] Urology Office/Clinic Noteon 09-20-2024 Urology Office/Clinic Note [...] When Contact Information REINIER HUSAIN, Salome Jaramillo, [facility] [address], [place] [address]- [phone] Additional Instructions: 1 yr w/ KUB Patient Education Kidney Stones, Prbw-gp-Saqi I, Babita Andrade, personally scribed for Dr. Loya on 09/20/2024 12:14:24. . Documentation recorded by the scribe, Babita Andrade, accurately reflects the services(s) I performed and decisions made by me. Authenticated by Dr. Loya on 09/20/2024 12:15:52. Problem List/Past Medical History Ongoing BPH with urinary obstruction CAD (coronary artery disease) Former smoker GERD (gastroesophageal reflux disease) Hx of fdc use of blood thinners Impotence Kidney stone [...] Oral, BID (more content not included)... Normal [facility] Comment on above: Result Comment: Elec tronically Signed By: REINIER HUSAIN, Salome Jaramillo\madeleine\Date and Time Signed: 09/20/24 12:15 EST\.br\Electronically Co-Signed By: Babita Andrade\.franky\Date and Time Co-Signed: 09/20/24 12:14 EST US art pvr/post Yadi 024 US art pvr/post LE [facility] Main [place] [address] [place] [address] Ultrasound Report Signed Patient: Max Brady MR#: [id number] 11 : 1940 Acct:[id number] Age/Sex: 84 / M ADM Date: 08/26/24 Loc: Room: Type: [facility] CLI Attending Dr: Bertha Hutchins DO Ordering Provider: Bertha Hutchins DO Date of Service: 08/26/24 US/US art pvr/post LE: I70.213 - Atherosclerosis of [place] arteries of [facility]... Copies to: Bertha Hutchins DO LOWER EXTREMITY [...] Jaylon Finnegan MD08/27/2024 9:25 AM Dictation Location: [place] [address] Tech: Ashley Gonzalez Transcribed By: DANIEL 08/27/24924 Dictated By: Jaylon Finnegan MD 08/27/24921 Signed By: 08/27/24924 Normal [facility] NM charito perf SPECT rest stron 08-25-2024 NM charito perf SPECT rest str [facility] Main [address] [address] Nuclear Medicine Report Signed Patient: Max Brady MR#: [id number] 11 : 1940 Acct:[id number] Age/Sex: 84 / M ADM Date: 08/26/24 Loc: Room: Type: [facility] Attending Dr: Bertha Hutchins DO Copies to: [...] 1744 Signed By: 08/30/24 1220 Normal [facility] STR cardiac stress/lexiscano n 08-25-2024 STR cardiac stress/lexiscan [facility] Main [address] [address] Cardiac Stress Test Signed Patient: Max Brady MR#: [id number] 11 : 1940 Acct:[id number] Age/Sex: 84 / M ADM Date: 08/26/24 Loc: UL Room: Type: [facility] Attending Dr: Bertha Hutchins DO Copies to: DO Moni Worthington MD Ordering Provider: Bertha Hutchins DO Date of Service: 08/25/24 STR/STR cardiac stress/lexiscan: I25.10 - Atherosclerotic heart disease of [place] coronary... REFERRING PHYSICIAN: Bertha Hutchins DO REASON [...] 1721 Signed By: 08/30/24 1220 Normal [facility] FPG ECG *CARDIOLOGY ONLY*on 08-16-2024 FPG ECG *CARDIOLOGY ONLY* [facility] [place] [address] Electrocardiograph Report Signed Patient: Max Brady MR#: [id number] 11 : 1940 Acct:[id number] Age/Sex: 84 / M ADM Date: 08/16/24 Loc: EKGCARDIO Room: Type: [facility] Attending Dr: Bertha Hutchins DO Ordering Provider: Bertha Hutchins DO Date of Service: 08/16/2406/02/1415 ECG/FPG ECG *CARDIOLOGY ONLY*: I25.10 - Atherosclerotic heart disease of [place] coronary... Copies to: Test Reason : Blood Pressure : */* mmHG Vent. Rate : 78 BPM Atrial Rate : 78 BPM P-R Int : 232 ms QRS Dur : 84 ms QT Int : 404 ms P-R-T Axes : 43 27 20 degrees QTcB Int : 460 ms Sinus rhythm with 1st degree AV block Confirmed by Ila Thomas ([id number]) on 08/17/2024 10:25:55 AM Referred By: Electronically Signed By: Ila Thomas Transcribed By: MUS Signed By Ila Thomas MD 4 1025 Normal [facility] Estimated glomerular filtrat ion rate (GFR) non- Americanon 04-29-2024 GFR/1.73 sq M.predicted among non-blacks MDRD (S/P/Bld) [Vol rate/Area] 49 mL/min/{1.73_m2} Low >=60 [facility] Laboratory - Chemistry and C hemistry - challengeon 04-29-2024 Calcium [Mass/Vol] 9.2 mg/dL 8.5-10.1 [facility] Chloride [Moles/Vol] 99 mmol/L 98-107 [facility] CO2 [Moles/Vol] 31.3 mmol/L 21.0-32.0 [facility] Creatinine [Mass/Vol] 1.39 mg/dL High 0.70-1.30 [facility] GFR/1.73 sq M.predicted MDRD (S/P/Bld) [Vol rate/Area] 59 mL/min/{1.73_m2} Low >=60 [facility] Glucose [Mass/Vol] 94 mg/dL 74-106 [facility] Natriuretic peptide B (Bld) [Mass/Vol] 98.0 pg/mL <=1800.0 [facility] Potassium [Moles/Vol] 3.0 mmol/L Low 3.5-5.1 [facility] Sodium [Moles/Vol] 140 mmol/L 136-145 [facility] Urea nitrogen [Mass/Vol] 30.0 mg/dL High 7.0-18.0 [facility] Urea nitrogen/Creatinine [Mass ratio] 21.6 mg/mg [facility] Serum or plasma anion gap de terminationon 04-29-2024 Anion gap [Moles/Vol] 12.7 mmol/L [facility] Laboratory - Chemistry and C hemistry - challengeon 04-17-2024 Free T4 [Mass/Vol] 0.79 ng/dL 0.76-1.46 [facility] TSH Qn 5.269 m[IU]/L High 0.358-3.740 [facility] No Panel Informationon 04-17 Total Triiodothyronine 97 ng/dL 71-180 [facility] Comment on above: Performed at: [address] [id number] Director: Nadir Chavez PhD, Phone: [phone] Basophils Auto (Bld) [#/Vol] on 04-07-2024 Basophils (Bld) [#/Vol] 0.0 10 3/uL 0.0-0.1 [facility] Basophils/100 WBC Auto (Bld) on 04-07-2024 Basophils/100 WBC (Bld) 0.6 % 0.2-2.0 [facility] Cholesterol in LDL Calc [Mas s/Vol]on 04-07-2024 Cholesterol in LDL [Mass/Vol] 67.2 mg/dL [facility] Comment on above: <100 mg/dl [id number] 0-129 mg/dl NEAR OR ABOVE [id number] mg/dl BORDERLINE [id number] mg/dl HIGH>190 mg/dl VERY HIGH Cholesterol in VLDL Calc [Ma ss/Vol]on 04-07-2024 Cholesterol in VLDL [Mass/Vol] 23.8 mg/dL [facility] Eosinophils/100 WBC Auto (Bl d)on 04-07-2024 Eosinophils/100 WBC (Bld) 9.8 % High 0.9-7.0 [facility] Erythrocyte distribution wid th Auto (RBC) [Ratio]on 04-07-2024 Erythrocyte distribution width (RBC) [Ratio] 14.0 % 11.0-15.0 [facility] Estimated glomerular filtrat ion rate (GFR) non- Americanon 04-07-2024 GFR/1.73 sq M.predicted among non-blacks MDRD (S/P/Bld) [Vol rate/Area] 55 mL/min/{1.73_m2} Low >=60 [facility] Globulin Calc (S) [Mass/Vol] on 04-07-2024 Globulin (S) [Mass/Vol] 3.8 g/dL [facility] Hematocrit Auto (Bld) [Volum e fraction]on 04-07-2024 Hematocrit (Bld) [Volume fraction] 44.7 % 42.0-54.0 [facility] Hemoglobin [Mass/volume] in Bloodon 04-07-2024 Hemoglobin (Bld) [Mass/Vol] 14.3 g/dL 14.0-18.0 [facility] Laboratory - Chemistry and C hemistry - challengeon 04-07-2024 Albumin [Mass/Vol] 3.4 g/dL 3.4-5.0 [facility] ALP [Catalytic activity/Vol] 67 U/L 46-116 [facility] ALT [Catalytic activity/Vol] 22 U/L 16-63 [facility] AST [Catalytic activity/Vol] 20 U/L 15-37 [facility] Bilirubin [Mass/Vol] 1.0 mg/dL 0.2-1.0 [facility] Calcium [Mass/Vol] 8.9 mg/dL 8.5-10.1 [facility] Chloride [Moles/Vol] 103 mmol/L 98-107 [facility] Cholesterol [Mass/Vol] 150 mg/dL <=200 [facility] Cholesterol in HDL [Mass/Vol] 59 mg/dL 40-60 [facility] Comment on above: > or =60 mg/dl - LOW CARDIOVASCULAR RISK<40 mg/dl - HIGH CARDIOVASCULAR RISK CO2 [Moles/Vol] 29.8 mmol/L 21.0-32.0 [facility] Creatinine [Mass/Vol] 1.26 mg/dL 0.70-1.30 [facility] GFR/1.73 sq M.predicted MDRD (S/P/Bld) [Vol rate/Area] mL/min/{1.73_m2} >=60 [facility] Glucose [Mass/Vol] 109 mg/dL High 74-106 [facility] Natriuretic peptide B (Bld) [Mass/Vol] 104.0 pg/mL <=1800.0 [facility] Potassium [Moles/Vol] 3.4 mmol/L Low 3.5-5.1 [facility] Protein [Mass/Vol] 7.2 g/dL 6.4-8.2 [facility] Sodium [Moles/Vol] 140 mmol/L 136-145 [facility] Triglyceride [Mass/Vol] 119 mg/dL <=150 [facility] TSH Qn 8.383 m[IU]/L High 0.358-3.740 [facility] Urea nitrogen [Mass/Vol] 21.0 mg/dL High 7.0-18.0 [facility] Urea nitrogen/Creatinine [Mass ratio] 16.7 mg/mg [facility] Laboratory - Hematology and Cell countson 04-07-2024 Immature granulocytes/100 WBC (Bld) 0.4 % 0.0-0.5 [facility] Leukocytes [#/volume] correc jose j for nucleated erythrocytes in Blood by Automated counon 04-07-2024 WBC corrected for nucl RBC Auto (Bld) [#/Vol] 5.2 10 3/uL 4.0-11.0 [facility] Lymphocytes Auto (Bld) [#/Vo l]on 04-07-2024 Lymphocytes (Bld) [#/Vol] 1.5 10 3/uL 1.2-3.8 [facility] Lymphocytes/100 WBC Auto (Bl d)on 04-07-2024 Lymphocytes/100 WBC (Bld) 28.6 % 20.5-60.0 [facility] MCH Auto (RBC) [Entitic mass ]on 04-07-2024 MCH (RBC) [Entitic mass] 30.2 pg 25.9-34.0 [facility] MCHC Auto (RBC) [Mass/Vol]on 04-07-2024 MCHC (RBC) [Mass/Vol] 32.0 g/dL 29.9-35.2 [facility] MCV Auto (RBC) [Entitic vol] on 04-07-2024 MCV (RBC) [Entitic vol] 94.5 fL High 80.0-94.0 [facility] Monocytes Auto (Bld) [#/Vol] on 04-07-2024 Monocytes (Bld) [#/Vol] 0.6 10 3/uL 0.3-0.8 [facility] Monocytes/100 WBC Auto (Bld) on 04-07-2024 Monocytes/100 WBC (Bld) 11.7 % 1.7-12.0 [facility] Neutrophils Auto (Bld) [#/Vo l]on 04-07-2024 Neutrophils (Bld) [#/Vol] 2.6 10 3/uL 1.4-6.5 [facility] Neutrophils/100 WBC Auto (Bl d)on 04-07-2024 Neutrophils/100 WBC (Bld) 48.9 % 43.0-75.0 [facility] No Panel Informationon 04-07 Eosinophils # (Auto) 0.5 10 3/uL 0.0-0.7 [facility] Immature Granulocyte # (Auto) 0.02 10 3/uL 0.00-0.03 [facility] Platelet mean volume Auto (B ld) [Entitic vol]on 04-07-2024 Platelet mean volume (Bld) [Entitic vol] 11.2 fL 9.5-13.5 [facility] Platelets Auto (Bld) [#/Vol] on 04-07-2024 Platelets (Bld) [#/Vol] 196 10 3/uL 150-450 [facility] RBC Auto (Bld) [#/Vol]on RBC (Bld) [#/Vol] 4.73 10 6/uL 4.70-6.10 [facility] Serum or plasma albumin/glob ulin mass ratioon 04-07-2024 Albumin/Globulin [Mass ratio] 0.9 {ratio} [facility] Serum or plasma anion gap de terminationon 04-07-2024 Anion gap [Moles/Vol] 10.6 mmol/L Fi [facility] Serum or plasma total choles terol/high density lipoprotein (HDL) cholesterol mass dejah 04-07-2024 Cholesterol.total/Cholest jose elias in HDL [Mass ratio] 2.5 {ratio} [facility] Comment on above: 3.3 - 4.4 LOW [...] potassium with it. *Follow-up with vascular in [place] for your leg weakness and pain Normal [facility] Office Visiton 01-15-2024 Follow-up visit [id number] Max Brady Huber 1940 M Date Provider Department Center 01/15/2024 TITA STEWART Family History Problem Relation Age of Onset No Known Problems Mother No Known Problems Father Family Status - Relation Status Age at Mother Father Level of Service:81172 ME OFFICE/OUTPATIENT ESTABLISHED MOD MDM 30 MIN Reason for Visit and Comments: Coronary Artery Disease [187] Congestive Heart Failure [127] Hypertension [379220] Hyperlipidemia [182] Normal [facility] 36on 01-05-2024 36 Regarding labs from 12/26/2023: Tita Rivera, SANG Franco MA Please let him know his labs show his kidney function is stable. Continue current meds. Thanks LM on patient's VM. Normal [facility] Estimated glomerular filtrat ion rate (GFR) non- Americanon 12-26-2023 GFR/1.73 sq M.predicted among non-blacks MDRD (S/P/Bld) [Vol rate/Area] 58 mL/min/{1.73_m2} >=60 [facility] Laboratory - Chemistry and C hemistry - challengeon 12-26-2023 Calcium [Mass/Vol] 9.3 mg/dL 8.5-10.1 [facility] Chloride [Moles/Vol] 101 mmol/L 98-107 [facility] CO2 [Moles/Vol] 28.4 mmol/L 21.0-32.0 [facility] Creatinine [Mass/Vol] 1.21 mg/dL 0.70-1.30 [facility] GFR/1.73 sq M.predicted MDRD (S/P/Bld) [Vol rate/Area] mL/min/{1.73_m2} >=60 [facility] Glucose [Mass/Vol] 117 mg/dL 74-106 [facility] Potassium [Moles/Vol] 3.9 mmol/L 3.5-5.1 [facility] Sodium [Moles/Vol] 138 mmol/L 136-145 [facility] Urea nitrogen [Mass/Vol] 19.0 mg/dL 7.0-18.0 [facility] Urea nitrogen/Creatinine [Mass ratio] 15.7 mg/mg [facility] Serum or plasma anion gap de terminationon 12-26-2023 Anion gap [Moles/Vol] 12.5 mmol/L [facility] 37on 12-17-2023 37 *Start taking lasix 40mg daily along with potassium supplements. *Have labs done around 12/26/2023. *Monitor your weight daily, first thing in the morning after you use the bathroom and before you eat breakfast. *Try to not drink more than 2000ml of fluids a day *Limit sodium/salt intake Normal [facility] Office Visiton 12-17-2023 Follow-up visit [id number] Max Brady 1940 M Date Provider Department Center 12/17/2023 TITA STEWART [facility] Family History Problem Relation Age of Onset No Known Problems Mother No Known Problems Father Family Status - Relation Status Age at Mother Father Level of Service:63758 ME OFFICE/OUTPATIENT ESTABLISHED MOD MDM 30 MIN Normal [facility] Laboratory - Microbiology an d Antimicrobial susceptibilityOrdered By: Aury Ann on 04-12-2023 S. pyogenes Ag IA Ql (Unsp spec) [facility] No Panel InformationOrdered By: Aury Ann on 04-12-2023 Flu B [facility] CBC AUTO DIFFon 09-25-2022 BASO # 0.0 103/ul Normal 0.0-0.1 [facility] Comment on above: Performed By: #### C BC #### [facility] [address] [place] [address] [address] Giacomo Mace Basophils/100 WBC (Bld) 0.5 % Normal 0.2-2.0 [facility] Comment on above: Performed By: #### C BC #### [facility] [address] [place] [address] Dr. Giacomo Mace EO # 0.4 103/ul Normal 0.0-0.7 [facility] Comment on above: Performed By: #### C BC #### [facility] [address] [place] [address] Dr. Giacomo Mace Eosinophils/100 WBC (Bld) 7.0 % Normal 0.9-7.0 [facility] Comment on above: Performed By: #### C BC #### [facility] [address] [place] [address] Dr. Giacomo Mace Erythrocyte distribution width (RBC) [Ratio] 14.6 % Normal 11.0-15.0 [facility] Comment on above: Performed By: #### C BC #### [facility] [address] [place] [address] Dr. Giacomo Mace Hematocrit (Bld) [Volume fraction] 46.9 % Normal 42.0-54.0 [facility] Comment on above: Performed By: #### C BC #### [facility] [address] [place] [address] Dr. Giacomo Mace Hemoglobin (Bld) [Mass/Vol] 15.1 g/dL Normal 14.0-18.0 [facility] Comment on above: Performed By: #### C BC #### [facility] [address] [place] [address] Dr. Giacomo Mace IG # 0.02 10e3/ul Normal 0.00-0.03 [facility] Comment on above: Performed By: #### C BC #### [facility] [address] [place] [address] Dr. Giacomo Mace IG % 0.4 % Normal 0.0-0.5 [facility] Comment on above: Performed By: #### C BC #### [facility] [address] [place] [address] Dr. Giacomo Mace LYMPH # 1.4 103/ul Normal 1.2-3.8 [facility] Comment on above: Performed By: #### C BC #### [facility] [address] [place] [address] Dr. Giacomo Mace Lymphocytes/100 WBC (Bld) 25.3 % Normal 20.5-60.0 [facility] Comment on above: Performed By: #### C BC #### [facility] [address] [place] [address] Dr. Giacomo Mace MANUAL DIFF REQ NO Normal [facility] Comment on above: Performed By: #### C BC #### [facility] [address] [place] [address] Dr. Giacomo Mace MCH (RBC) [Entitic mass] 29.6 pg Normal 25.9-34.0 [facility] Comment on above: Performed By: #### C BC #### [facility] [address] [place] [address] Dr. Giacomo Mace MCHC (RBC) [Mass/Vol] 32.2 g/dL Normal 29.9-35.2 [facility] Comment on above: Performed By: #### C BC #### [facility] [address] [place] [address] Dr. Giacomo Mace MCV (RBC) [Entitic vol] 92.0 fL Normal 80.0-94.0 [facility] Comment on above: Performed By: #### C BC #### [facility] [address] [place] [address] Dr. Giacomo Mace MONO # 0.6 103/ul Normal 0.3-0.8 [facility] Comment on above: Performed By: #### C BC #### [facility] [address] [place] [address] Dr. Giacomo Mace Monocytes/100 WBC (Bld) 10.4 % Normal 1.7-12.0 [facility] Comment on above: Performed By: #### C BC #### [facility] [address] [place] [address] Dr. Giacomo Mace NEUT # 3.2 103/ul Normal 1.4-6.5 [facility] Comment on above: Performed By: #### C BC #### [facility] [address] [place] [address] Dr. Giacomo Mace Neutrophils/100 WBC (Bld) 56.4 % Normal 43.0-75.0 [facility] Comment on above: Performed By: #### C BC #### [facility] [address] [place] [address] Dr. Giacomo Mace Platelet mean volume (Bld) [Entitic vol] 10.5 fL Normal 9.5-13.5 [facility] Comment on above: Performed By: #### C BC #### [facility] [address] [place] [address] Dr. Giacomo Mace PLT 227 103/ul Normal 150-450 [facility] Comment on above: Performed By: #### C BC #### [facility] [address] [place] [address] Dr. Giacomo Mace RBC 5.10 106/ul Normal 4.70-6.10 [facility] Comment on above: Performed By: #### C BC #### [facility] [address] [place] [address] Dr. Giacomo Mace WBC 5.7 103/ul Normal 4.0-11.0 [facility] Comment on above: Performed By: #### C BC #### [facility] [address] [place] [address] Dr. Giacomo Mace LIPID PROFILEon 09-25-2022 CHOL-HDL RATIO NORM SEE BELOW Normal [facility] Comment on above: Result Comment: 3.3 - 4.4 LOW RISK 4.4 - 7.1 AVERAGE RISK 7.1 - 11.0 MODERATE RISK >11.0 HIGH RISK Performed By: #### B MP, LIPID #### [facility] [address] [place] [address] Dr. Giacomo Mace Cholesterol [Mass/Vol] 219 mg/dL Critically high <=200 [facility] Comment on above: Performed By: #### B MP, LIPID #### [facility] [address] [address] [address] Giacomo Mace Cholesterol in HDL [Mass/Vol] 61 mg/dL Critically high 40-60 [facility] Comment on above: Performed By: #### B MP, LIPID #### [facility] [address] [address] [address] Giacomo Mace Cholesterol in LDL [Mass/Vol] 136.4 mg/dL Normal [facility] Comment on above: Performed By: #### B MP, LIPID #### [facility] [address] [place] [address] [address] Giacomo Mace Cholesterol.total/Cholest jose elias in HDL [Mass ratio] 3.6 {ratio} Normal [facility] [facility] Comment on above: Performed By: #### B MP, LIPID #### [facility] [address] [address] [address] Giacomo Mace HDL NORMAL > or = 60 mg/dl - LOW CARDIOVASCULAR RISK <40 mg/dl - HIGH CARDIOVASCULAR RISK Normal [facility] Comment on above: Performed By: #### B MP, LIPID #### [facility] [address] [address] [address] Giacomo Mace LDL CALC NORMAL SEE BELOW Normal [facility] Comment on above: Result Comment: <100 mg/dl OPTIMAL 100 - 129 mg/dl NEAR OR ABOVE OPTIMAL 130 - 159 mg/dl BORDERLINE HIGH 160 - 189 mg/dl HIGH >190 mg/dl VERY HIGH Performed By: #### B MP, LIPID #### [facility] [address] [address] [address] Giacomo Mace Triglyceride [Mass/Vol] 108 mg/dL Normal <=150 T [facility] Comment on above: Performed By: #### B MP, LIPID #### [facility] [address] [address] [address] Giacomo Mace VLDL CALC 21.6 mg/dL Normal [facility] Comment on above: Performed By: #### B MP, LIPID #### [facility] [address] [address] [address] Giacomo Mace PROF CHEM 8 (BAS METB)on Anion gap [Moles/Vol] 9.6 mmol/L Normal [facility] Comment on above: Performed By: #### B MP, LIPID #### [facility] [address] [place] [address] Dr. Giacomo Mace Calcium [Mass/Vol] 9.3 mg/dL Normal 8.5-10.1 [facility] Comment on above: Performed By: #### B MP, LIPID #### [facility] [address] [address] [address] Giacomo Mace Chloride [Moles/Vol] 104 mmol/L Normal 98-107 [facility] Comment on above: Performed By: #### B MP, LIPID #### [facility] [address] [place] [address] Dr. Giacomo Mace CO2 [Moles/Vol] 27.8 mmol/L Normal 21.0-32.0 [facility] Comment on above: Performed By: #### B MP, LIPID #### [facility] [address] [place] [address] Dr. Giacomo Mace Creatinine [Mass/Vol] 1.08 mg/dL Normal 0.70-1.30 [facility] Comment on above: Performed By: #### B MP, LIPID #### [facility] [address] [place] [address] Dr. Giacomo Mace EGFR-AF GRENADIAN >60 Normal >=60 [facility] Comment on above: Performed By: #### B MP, LIPID #### [facility] [address] [place] [address] Dr. Giacomo Mace EGFR-NON AF GRENADIAN >60 Normal >=60 [facility] Comment on above: Performed By: #### B MP, LIPID #### [facility] [address] [place] [address] Dr. Giacomo Mace Glucose [Mass/Vol] 111 mg/dL Critically high 74-106 [facility] Comment on above: Performed By: #### B MP, LIPID #### [facility] [address] [place] [address] Dr. Giacomo Mace Potassium [Moles/Vol] 4.4 mmol/L Normal 3.5-5.1 [facility] Comment on above: Performed By: #### B MP, LIPID #### [facility] [address] [address] [address] Giacomo Mace Sodium [Moles/Vol] 137 mmol/L Normal 136-145 [facility] Comment on above: Performed By: #### B MP, LIPID #### [facility] [address] [address] [address] Giacomo Mace Urea nitrogen [Mass/Vol] 27.0 mg/dL Critically high 7.0-18 .0 [facility] Comment on above: Performed By: #### B MP, LIPID #### [facility] [address] [address] [address] Giacomo Mace Urea nitrogen/Creatinine [Mass ratio] 25.0 mg/mg Normal [facility] Comment on above: Performed By: #### B MP, LIPID #### [facility] [address] [address] [address] Giacomo Mace ECHOCARDIO M/2D COMPLETEon 0 07-09-2022 ECHOCARDIO M/2D COMPLETE Patient: MAX BRADY Exam Date: 07/09/2022 : 1940 Gender:M Ordering : TITA RIVERA [facility] Admission #: [id number] Family : DR TIMBO BAIG D.O. Order #: [id number] CLICK HERE TO VIEW EXAM ECHOCARDIOGRAM REPORT [...] Davis M.D. on 07/10/2022 at 14:46 Normal [facility] CPKon 04-27-2022 CK [Catalytic activity/Vol] 96 U/L Normal 39-308 [facility] Comment on above: Performed By: #### C RP, CK #### [facility] [address] [place] [address] Dr. Giacomo Mace CRPon 04-27-2022 CRP [Mass/Vol] mg/L Normal <=1.0 [facility] Comment on above: Performed By: #### C RP, CK #### [facility] [address] [address] [address] Giacomo Mace ELECTROLYTESon 04-18-2022 Anion gap [Moles/Vol] 11.8 mmol/L Normal [facility] Comment on above: Performed By: #### E LEC #### [facility] [address] [address] [address] Giacomo Mace Chloride [Moles/Vol] 104 mmol/L Normal 98-107 [facility] Comment on above: Performed By: #### E LEC #### [facility] [address] [address] [address] Giacomo Mace CO2 [Moles/Vol] 27.5 mmol/L Normal 21.0-32.0 [facility] Comment on above: Performed By: #### E LEC #### [facility] [address] [place] [address] Dr. Giacomo Mace Potassium [Moles/Vol] 4.3 mmol/L Normal 3.5-5.1 [facility] Comment on above: Performed By: #### E LEC #### [facility] [address] [place] [address] Dr. Giacomo Mace Sodium [Moles/Vol] 139 mmol/L Normal 136-145 [facility] Comment on above: Performed By: #### E LEC #### [facility] [address] [place] [address] Dr. Giacomo Mace XR KUB 1 VIEWon [...] by: IVY DOMINGUEZ Date: 2022-04-18 08:04 Normal [facility] Vital Signs Date Time Vital Sign Value Performing Clinician Facility 07-29-2025 10:06-0400 Body height 177.8 cm Timbo Ball DO Work Phone: [facility] 07-29-2025 10:06-0400 Body mass index (BMI) [Ratio] 27.4 kg/m2 Timbo Ball DO Work Phone: [facility] 07-29-2025 10:06-0400 Body weight 86.8 kg Timbo Ball DO Work Phone: [facility] 07-29-2025 10:06-0400 Diastolic blood pressure 67 mm[Hg] Timbo Ball DO Work Phone: [facility] 07-29-2025 10:06-0400 Heart rate 72 /min Tibmo Ball DO Work Phone: [facility] 07-29-2025 10:06-0400 Respiratory rate 12 /min Timbo Ball DO Work Phone: [facility] 07-29-2025 10:06-0400 Systolic blood pressure 122 mm[Hg] Timbo Ball DO Work Phone: [facility] 05-12-2025 11:18-0400 Diastolic blood pressure 68 mm[Hg] Timbo Ball DO Work Phone: [facility] 05-12-2025 11:18-0400 Systolic blood pressure 90 mm[Hg] Timbo Ball DO Work Phone: [facility] 05-12-2025 11:07-0400 Body height 177.8 cm Timbo Ball DO Work Phone: [facility] 05-12-2025 11:07-0400 Body mass index (BMI) [Ratio] 27.5 kg/m2 Timbo Ball DO Work Phone: [facility] 05-12-2025 11:07-0400 Body temperature 98.1 [degF] Timbo Ball DO Work Phone: [facility] 05-12-2025 11:07-0400 Body weight 87.08 kg Timbo Ball DO Work Phone: [facility] 05-12-2025 11:07-0400 Heart rate 51 /min Timbo Ball DO Work Phone: [facility] 05-12-2025 11:07-0400 SaO2% (BldA) [Mass fraction] 99 % Timbo Ball DO Work Phone: [facility] 03-18-2025 10:15-0400 Body height 177.8 cm Timbo Ball DO Work Phone: [facility] 03-18-2025 10:15-0400 Body mass index (BMI) [Ratio] 27.6 kg/m2 Timbo Ball DO Work Phone: [facility] 03-18-2025 [id number] Body weight 87.14 kg Timbo Ball DO Work Phone: [facility] 03-18-2025 10:15-0400 Diastolic blood pressure 66 mm[Hg] Timbo Ball DO Work Phone: [facility] 03-18-2025 10:15-0400 Heart rate 76 /min Timbo Ball DO Work Phone: [facility] 03-18-2025 10:15-0400 Respiratory rate 12 /min Timbo Ball DO Work Phone: [facility] 03-18-2025 10:15-0400 Systolic blood pressure 118 mm[Hg] Timbo Ball DO Work Phone: [facility] 12-29-2024 10:050 Body height 177.8 cm Timbo Ball DO Work Phone: [facility] 12-29-2024 10:21-0500 Body mass index (BMI) [Ratio] 27.2 kg/m2 Timbo Ball DO Work Phone: [facility] 12-29-2024 10:21-0500 Body temperature 96.1 [degF] Timbo Ball DO Work Phone: [facility] 12-29-2024 10:21-0500 Body weight 86.18 kg Timbo Ball DO Work Phone: [facility] 12-29-2024 10:21-0500 Diastolic blood pressure 60 mm[Hg] Timbo Ball DO Work Phone: [facility] 12-29-2024 10:21-0500 Heart rate 47 /min Timbo Ball DO Work Phone: [facility] 12-29-2024 10:21-0500 SaO2% (BldA) [Mass fraction] 96 % Timbo Ball DO Work Phone: [facility] 12-29-2024 10:21-0500 Systolic blood pressure 102 mm[Hg] Timbo Ball DO Work Phone: [facility] 11-25-2024 10:32-0500 Body height 177.8 cm Timbo Ball DO Work Phone: [facility] 11-25-2024 10:32-0500 Body mass index (BMI) [Ratio] 28.1 kg/m2 Timbo Ball DO Work Phone: [facility] 11-25-2024 10:32-0500 Body temperature 97.8 [degF] Timbo Ball DO Work Phone: [facility] 11-25-2024 10:32-0500 Body weight 88.9 kg Timbo Ball DO Work Phone: [facility] 11-25-2024 10:32-0500 Diastolic blood pressure 66 mm[Hg] Timbo Ball DO Work Phone: [facility] 11-25-2024 10:32-0500 Heart rate 74 /min Timbo Ball DO Work Phone: [facility] 11-25-2024 10:32-0500 Systolic blood pressure 124 mm[Hg] Timbo Ball DO Work Phone: [facility] 10-28-2024 15:02-0500 Body height 177.8 cm Timbo Ball DO Work Phone: [facility] 10-28-2024 15:02-0500 Body mass index (BMI) [Ratio] 28.1 kg/m2 Timbo Ball DO Work Phone: [facility] 10-28-2024 15:02-0500 Body weight 88.96 kg Timbo Ball DO Work Phone: [facility] 10-28-2024 15:02-0500 Diastolic blood pressure 78 mm[Hg] Timbo Ball DO Work Phone: [facility] 10-28-2024 15:02-0500 Heart rate 69 /min Timbo Ball DO Work Phone: [facility] 10-28-2024 15:02-0500 Respiratory rate 12 /min Timbo Ball DO Work Phone: [facility] 10-28-2024 15:02-0500 Systolic blood pressure 123 mm[Hg] Timbo Ball DO Work Phone: [facility] 10-26-2024 09:00-0500 Body height 177.8 cm Timbo Ball DO Work Phone: [facility] 10-26-2024 09:00-0500 Body mass index (BMI) [Ratio] 28.3 kg/m2 Timbo Ball DO Work Phone: [facility] 10-26-2024 09:00-0500 Body weight 89.35 kg Timbo Ball DO Work Phone: [facility] 10-26-2024 09:00-0500 Diastolic blood pressure 70 mm[Hg] Timbo Ball DO Work Phone: [facility] 10-26-2024 09:00-0500 Heart rate 73 /min Timbo Ball DO Work Phone: [facility] 10-26-2024 09:00-0500 Respiratory rate 18 /min Timbo Ball DO Work Phone: [facility] 10-26-2024 09:00-0500 SaO2% (BldA) [Mass fraction] 96 % Timbo Ball DO Work Phone: [facility] 10-26-2024 09:00-0500 Systolic blood pressure 120 mm[Hg] Timbo Ball DO Work Phone: [facility] 10-18-2024 13:22-0500 Diastolic blood pressure 65 mm[Hg] Timbo Ball DO Work Phone: [facility] 10-18-2024 13:22-0500 Heart rate 60 /min Timbo Ball DO Work Phone: [facility] 10-18-2024 13:22-0500 Respiratory rate 16 /min Timbo Ball DO Work Phone: [facility] 10-18-2024 13:22-0500 SaO2% (BldA) [Mass fraction] 97 % Timbo Ball DO Work Phone: [facility] 10-18-2024 13:22-0500 Systolic blood pressure 110 mm[Hg] Timbo Ball DO Work Phone: [facility] 10-18-2024 11:10-0500 Inhaled oxygen flow rate 4 L/min Timbo Ball DO Work Phone: [facility] 10-18-2024 09:08-0500 Body height 177.8 cm Timbo Ball DO Work Phone: [facility] 10-18-2024 09:08-0500 Body weight 88 kg Timbo Ball DO Work Phone: [facility] 10-04-2024 11:45-0500 Diastolic blood pressure 62 mm[Hg] Timbo Ball DO Work Phone: [facility] 10-04-2024 11:45-0500 Heart rate 60 /min Timbo Ball DO Work Phone: [facility] 10-04-2024 11:45-0500 Respiratory rate 16 /min Timbo Ball DO Work Phone: [facility] 10-04-2024 11:45-0500 SaO2% (BldA) [Mass fraction] 95 % Timbo Ball DO Work Phone: [facility] 10-04-2024 11:45-0500 Systolic blood pressure 99 mm[Hg] Timbo Ball DO Work Phone: [facility] 10-04-2024 09:30-0500 Inhaled oxygen flow rate 4 L/min Timbo Ball DO Work Phone: [facility] 10-04-2024 07:36-0500 Body height 177.8 cm Timbo Ball DO Work Phone: [facility] 10-04-2024 07:36-0500 Body weight 88.45 kg Timbo Ball DO Work Phone: [facility] 09-20-2024 11:23-0500 Blood Pressure Location Salomealeksandr LOYA [facility] 09-20-2024 11:23-0500 Diastolic blood pressure 64 mm[Hg] Salome LOYA [facility] 09-20-2024 11:23-0500 Heart rate 67 /min Salomealeksandr LOYA [facility] 09-20-2024 11:23-0500 Respiratory rate 18 /min Salomealeksandr LOYA [facility] 09-20-2024 11:23-0500 Systolic blood pressure 97 mm[Hg] Salome LOYA [facility] 08-31-2024 11:00-0400 Body height 177.8 cm DO Timbo Ball Work Phone: [facility] 08-31-2024 11:00-0400 Body mass index (BMI) [Ratio] 28.5 kg/m2 DO Timbo Ball Work Phone: [facility] 08-31-2024 11:00-0400 Body weight 90.43 kg DO Timbo Ball Work Phone: [facility] 08-31-2024 11:00-0400 Diastolic blood pressure 79 mm[Hg] DO Timbo Ball Work Phone: [facility] 08-31-2024 11:00-0400 Heart rate 69 /min DO Timbo Ball Work Phone: [facility] 08-31-2024 11:00-0400 Respiratory rate 12 /min DO Timbo Ball Work Phone: [facility] 08-31-2024 11:00-0400 Systolic blood pressure 116 mm[Hg] DO Timbo Ball Work Phone: [facility] 08-25-2024 09:46-0400 Diastolic blood pressure 79 mm[Hg] DO Timbo Ball Work Phone: [facility] 08-25-2024 09:46-0400 Heart rate 68 /min DO Timbo Ball Work Phone: [facility] 08-25-2024 09:46-0400 Systolic blood pressure 160 mm[Hg] DO Timbo Ball Work Phone: [facility] 08-16-2024 14:15-0400 Body height 177.8 cm [facility] 08-16-2024 14:15-0400 Body mass index (BMI) [Ratio] 28.4 kg/m2 [facility] 08-16-2024 14:15-0400 Body weight 89.81 kg [facility] 08-16-2024 14:15-0400 Diastolic blood pressure 80 mm[Hg] [facility] 08-16-2024 14:15-0400 Heart rate 71 /min [facility] 08-16-2024 14:15-0400 Respiratory rate 18 /min [facility] 08-16-2024 14:15-0400 SaO2% (BldA) [Mass fraction] 94 % [facility] 08-16-2024 14:15-0400 Systolic blood pressure 138 mm[Hg] [facility] 06-30-2024 10:03-0400 Body height 177.8 cm DO Timbo Ball Work Phone: [facility] 06-30-2024 10:03-0400 Body mass index (BMI) [Ratio] 28.5 kg/m2 DO Timbo Ball Work Phone: [facility] 06-30-2024 10:03-0400 Body weight 90.43 kg DO Timbo Ball Work Phone: [facility] 06-30-2024 10:03-0400 Diastolic blood pressure 73 mm[Hg] DO Timbo Ball Work Phone: [facility] 06-30-2024 10:03-0400 Heart rate 80 /min DO Timbo Ball Work Phone: [facility] 06-30-2024 10:03-0400 Respiratory rate 12 /min DO Timbo Ball Work Phone: [facility] 06-30-2024 10:03-0400 Systolic blood pressure 128 mm[Hg] DO Timbo Ball Work Phone: [facility] 05-06-2024 12:38-0400 Body height 177.8 cm DO Timbo Ball Work Phone: [facility] 05-06-2024 12:38-0400 Body mass index (BMI) [Ratio] 29 kg/m2 DO Timbo Ball Work Phone: [facility] 05-06-2024 12:38-0400 Body temperature 96.3 [degF] DO Timbo Ball Work Phone: [facility] 05-06-2024 12:38-0400 Body weight 91.62 kg DO Timbo Ball Work Phone: [facility] 05-06-2024 12:38-0400 Diastolic blood pressure 78 mm[Hg] DO Timbo Ball Work Phone: [facility] 05-06-2024 12:38-0400 Heart rate 62 /min DO Timbo Ball Work Phone: [facility] 05-06-2024 12:38-0400 SaO2% (BldA) [Mass fraction] 90 % DO Timbo Ball Work Phone: [facility] 05-06-2024 12:38-0400 Systolic blood pressure 108 mm[Hg] DO Timbo Ball Work Phone: [facility] 03-15-2024 11:40-0400 Body height 177.8 cm [facility] 03-15-2024 11:40-0400 Body mass index (BMI) [Ratio] 29 kg/m2 [facility] 03-15-2024 11:40-0400 Body weight 91.73 kg [facility] 03-15-2024 11:40-0400 Diastolic blood pressure 76 mm[Hg] [facility] 03-15-2024 11:40-0400 Heart rate 66 /min [facility] 03-15-2024 11:40-0400 Respiratory rate 12 /min [facility] 03-15-2024 11:40-0400 Systolic blood pressure 129 mm[Hg] [facility] 01-08-2024 14:10-0500 Body height 177.8 cm [facility] 01-08-2024 14:10-0500 Body mass index (BMI) [Ratio] 28.8 kg/m2 [facility] 01-08-2024 14:10-0500 Body weight 90.94 kg [facility] 11-21-2023 10:30-0500 Body height 177.8 cm Timbo Ball Other [facility] [employer] Other 11-21-2023 10:30-0500 Body mass index (BMI) [Ratio] 29.12 kg/m2 Timbo Ball Other [employer] [facility] [employer] Other 11-21-2023 10:30-0500 Body weight 92.08 kg Timbo Ball Other [employer] [facility] [employer] Other 11-21-2023 10:30-0500 Diastolic blood pressure 66 mm[Hg] Timbo Ball Other [employer] [facility] [employer] Other 11-21-2023 10:30-0500 Respiratory rate 12 /min Timbo Ball Other [employer] Other 11-21-2023 10:30-0500 Systolic blood pressure 103 mm[Hg] Timbo Ball Other [employer] Other 09-24-2023 11:00-0500 Body height 177.8 cm Timbo Ball Other [employer] Other 09-24-2023 11:00-0500 Body mass index (BMI) [Ratio] 28.69 kg/m2 Timbo Ball Other [employer] Other 09-24-2023 11:00-0500 Body weight 90.72 kg Timbo Ball Other [employer] Other 09-24-2023 11:00-0500 Diastolic blood pressure 73 mm[Hg] Timbo Ball Other [employer] Other 09-24-2023 11:00-0500 Respiratory rate 12 /min Timbo Ball Other [employer] Other 09-24-2023 11:00-0500 Systolic blood pressure 134 mm[Hg] Timbo Ball Other [employer] Other 08-25-2023 12:21-0400 Blood Pressure Location Salome LOYA [facility] 08-25-2023 12:21-0400 Diastolic blood pressure 82 mm[Hg] Salome LOYA [facility] 08-25-2023 12:21-0400 Heart rate 80 /min Salome LOYA [facility] 08-25-2023 12:21-0400 Respiratory rate 16 /min Salome LOYA [facility] 08-25-2023 12:21-0400 Systolic blood pressure 137 mm[Hg] Salome LOYA [facility] 04-12-2023 09:16-0400 Body temperature 97 [degF] PA Aury Shehorn Work Phone: [facility] 04-12-2023 09:16-0400 Body weight 88.45 kg PA Aury Shehorn Work Phone: [facility] 04-12-2023 09:16-0400 Diastolic blood pressure 62 mm[Hg] PA Aury Shehorn Work Phone: [facility] 04-12-2023 09:16-0400 Heart rate 80 /min PA Aury Shehorn Work Phone: [facility] 04-12-2023 09:16-0400 SaO2% (BldA) [Mass fraction] 96 % PA Aury Shehorn Work Phone: [facility] 04-12-2023 09:16-0400 Systolic blood pressure 123 mm[Hg] PA Aury Shehorn Work Phone: [facility] 03-24-2023 12:00-0400 Body height 177.8 cm Timbo Ball Other [employer] Other 03-24-2023 12:00-0400 Body mass index (BMI) [Ratio] 28.44 kg/m2 Timbo Ball Other [employer] Other 03-24-2023 12:00-0400 Body weight 89.9 kg Timbo Ball Other [employer] Other 03-24-2023 12:00-0400 Diastolic blood pressure 67 mm[Hg] Timbo Ball Other [employer] Other 03-24-2023 12:00-0400 Respiratory rate 12 /min Timbo Ball Other [employer] Other 03-24-2023 12:00-0400 Systolic blood pressure 123 mm[Hg] Timbo Ball Other [employer] Other 04-29-2022 14:30-0400 Body height 177.8 cm Niya Chowjorge Other [employer] Other 04-29-2022 14:30-0400 Body mass index (BMI) [Ratio] 28.69 kg/m2 Niya Samuel Other [employer] Other 04-29-2022 14:30-0400 Body temperature 96.3 [degF] Niya Samuel Other [employer] Other 04-29-2022 14:30-0400 Body weight 90.72 kg Niya Chowjorge Other [employer] Other 04-29-2022 14:30-0400 Diastolic blood pressure 80 mm[Hg] Niyavidya Baker Other [employer] Other 04-29-2022 14:30-0400 SaO2% (BldA) [Mass fraction] 98 % Niya Samuel Other [employer] Other 04-29-2022 14:30-0400 Systolic blood pressure 120 mm[Hg] Niya Baker Other [employer] Other 04-19-2022 10:04-0400 Blood Pressure Location Salome LOYA [facility] 04-19-2022 10:04-0400 Diastolic blood pressure 84 mm[Hg] Salome LOYA [facility] 04-19-2022 10:04-0400 Heart rate 67 /min Salome LOYA [facility] 04-19-2022 10:04-0400 Respiratory rate 16 /min Salome LOYA [facility] 04-19-2022 10:04-0400 Systolic blood pressure 143 mm[Hg] Salome LOYA [facility] Encounters Encounter Date Encounter Type Care Provider Facility Start: 09-26-2025 ambulatory Salome LOYA Facili ty:[facility] Start: 07-29-2025 End: 07-29-2025 ambulatory Timbo Baig DO Work Phone: [facility] Work Phone: Start: 07-29-2025 End: 07-29-2025 Patient encounter procedure Timbo Baig DO -[facility] Work Phone: Start: 05-12-2025 End: 05-12-2025 ambulatory Timbo Baig DO Work Phone: [facility] Work Phone: Start: 05-12-2025 End: 05-12-2025 Patient encounter procedure Jaylon Finnegan MD -[facility] Work Phone: Start: 03-25-2025 Non-patient / Non-visit Timbo velasco DO -[facility] Work Phone: Start: 03-18-2025 Patient encounter procedure Timbo Ball DO Work Phone: [facility] Start: 03-18-2025 End: 03-18-2025 Patient encounter procedure Timbo Ball DO -[facility] Work Phone: Start: 12-29-2024 End: 12-29-2024 ambulatory Timbo Ball DO Work Phone: [facility] Work Phone: Start: 12-29-2024 End: 12-29-2024 Patient encounter procedure Timbo Ball DO Work Phone: [facility] Work Phone: Start: 12-07-2024 End: 12-07-2024 Patient encounter procedure Timbo Ball DO Work Phone: [facility] Ctr-Ultrasound [facility] [place] Work Phone: Start: 12-07-2024 End: 12-07-2024 ambulatory Timbo Ball DO Work Phone: [facility] Work Phone: Start: 11-25-2024 End: 11-25-2024 ambulatory Timbo Ball DO Work Phone: [facility] Work Phone: Start: 11-25-2024 End: 11-25-2024 Patient encounter procedure Timbo Ball DO Work Phone: [facility] V[facility] S[facility] Work Phone: Start: 11-04-2024 Non-patient / Non-visit Benjam in Ball DO Work Phone: [facility] Work Phone: Start: 10-28-2024 End: 10-28-2024 Patient encounter procedure Timbo Ball DO Work Phone: [facility] Work Phone: Start: 10-26-2024 End: 10-26-2024 Patient encounter procedure Timbo Ball DO Work Phone: [facility] Work Phone: Start: 10-18-2024 Non-patient / Non-visit Benjam in Ball DO Work Phone: [facility] Vascular Surg Work Phone: Start: 10-18-2024 End: 10-18-2024 Admission to same day surgery center Timbo Ball DO Work Phone: [facility] Ctr-Interventional Radiology Work Phone: Start: 10-18-2024 End: 10-18-2024 ambulatory Jaylon Finnegan Facility:[facility] Start: 10-04-2024 Non-patient / Non-visit Benjam in Ball DO Work Phone: [facility] Vascular Surg Work Phone: Start: 10-04-2024 End: 10-04-2024 Admission to same day surgery center Timbo Ball DO Work Phone: [facility] Ctr-Interventional Radiology Work Phone: Start: 10-04-2024 End: 10-04-2024 ambulatory Jaylon Finnegan Facility:[facility] Start: 09-20-2024 End: 09-20-2024 ambulatory Salome LOYA Facility:[facility] Start: 09-20-2024 End: 09-20-2024 Patient encounter procedure Salome LOYA [facility] Start: 09-15-2024 End: 09-15-2024 ambulatory DO Timbo Ball Work Phone: [facility] Work Phone: Start: 09-15-2024 End: 09-15-2024 Patient encounter procedure DO Timbo Ball Work Phone: [facility] Vascular Surgery Work Phone: Start: 08-31-2024 End: 08-31-2024 ambulatory DO Timbo Ball Work Phone: [facility] Work Phone: Start: 08-31-2024 End: 08-31-2024 Patient encounter procedure DO Timbo Ball Work Phone: [facility] Work Phone: Start: 08-26-2024 End: 08-26-2024 Patient encounter procedure DO Timbo Ball Work Phone: [facility] Ctr-Ultrasound [facility] [place] Work Phone: Start: 08-26-2024 End: 08-26-2024 ambulatory DO Timbo Ball Work Phone: [facility] Work Phone: Start: 08-25-2024 End: 08-25-2024 ambulatory DO Timbo Ball Work Phone: [facility] Work Phone: Start: 08-25-2024 End: 08-25-2024 Patient encounter procedure DO Timbo Ball Work Phone: [facility] Ctr-Nuc Med [facility] [place] Work Phone: Start: 08-16-2024 End: 08-16-2024 Patient encounter procedure [facility] Work Phone: Start: 08-16-2024 End: 08-16-2024 ambulatory Ling Zain Kwonmodanilo [facility] Work Phone: Start: 06-30-2024 End: 06-30-2024 ambulatory DO Timbo Ball Work Phone: [facility] Work Phone: Start: 06-30-2024 End: 06-30-2024 Patient encounter procedure DO Timbo Ball Work Phone: [facility] Work Phone: Start: 05-06-2024 End: 05-06-2024 ambulatory DO Timbo Ball Work Phone: [facility] Work Phone: Start: 05-06-2024 End: 05-06-2024 Patient encounter procedure DO Timbo Baig Work Phone: [facility] Vascular Surgery Work Phone: Start: 04-29-2024 Non-patient / Non-visit DO Sheng ambriz Ball Work Phone: [facility] Work Phone: Start: 04-17-2024 Non-patient / Non-visit DO Sheng ambriz Ball Work Phone: [facility] Work Phone: Start: 04-07-2024 Non-patient / Non-visit DO Sheng ambriz Ball Work Phone: [facility] Work Phone: Start: 03-15-2024 End: 03-15-2024 ambulatory [facility] Work Phone: Start: 03-15-2024 End: 03-15-2024 Patient encounter procedure [facility] Work Phone: Start: 02-11-2024 End: 02-11-2024 ambulatory NAVNEET BLANC Not Available Start: 01-15-2024 End: 01-15-2024 ambulatory [facility] Start: 01-08-2024 End: 01-08-2024 Patient encounter procedure [facility] Neurosurgery Work Phone: Start: 12-26-2023 Non-patient / Non-visit [facility] Work Phone: Start: 12-17-2023 End: 12-17-2023 ambulatory [facility] Start: 11-21-2023 End: 11-21-2023 ambulatory Timbo Baig Other [facility] [employer] Other Start: 11-21-2023 Office outpatient vi sit 15 minutes Timbo Baig [facility] Start: 10-08-2023 End: 10-08-2023 ambulatory Timbo Baig Other [employer] Other Start: 10-08-2023 Telephone encounter Timbo Baig [facility] Start: 09-24-2023 End: 09-24-2023 ambulatory Timbo Baig Other [employer] Other Start: 09-24-2023 Office outpatient vi sit 25 minutes Timbo Baig [facility] Start: 09-04-2023 Office outpatient vi sit 15 minutes Jaylon Finnegan [facility] Vascular Surgery Start: 09-04-2023 End: 09-04-2023 ambulatory DO Timbo Baig Work Phone: [employer] Other Start: 09-04-2023 End: 09-04-2023 Patient encounter procedure DO Timbo Baig Work Phone: [facility] Ctr-Ultrasound [facility] Start: 08-25-2023 End: 08-25-2023 Patient encounter procedure Salome LOYA [facility] Start: 2023 End: 2023 ambulatory Niya Baker Other [employer] Other Start: 2023 Telephone encounter Niya Barber [facility] Start: 05-22-2023 End: 05-22-2023 ambulatory Niya Baker Other [employer] Other Start: 05-22-2023 Telephone encounter Niya Barber [facility] Start: 05-01-2023 End: 05-01-2023 ambulatory DO Timbo Baig Work Phone: [facility] Work Phone: Start: 05-01-2023 End: 05-01-2023 Patient encounter procedure DO Timbo Baig Work Phone: [facility] Ctr-Ultrasound [facility] Start: 04-12-2023 End: 04-12-2023 ambulatory ANDERSON Ann Work Phone: [facility] Work Phone: Start: 04-12-2023 End: 04-12-2023 Patient encounter procedure ANDERSON Ann Work Phone: [facility] Work Phone: Start: 04-02-[address] TIMBO BAIG [facility] ty:H1 Start: 03-24-2023 End: 03-24-2023 ambulatory Timbo Baig Other [employer] Other Start: 03-24-2023 Patient encounter procedure Timbo Baig [facility] Start: 09-25-2022 End: 09-26-[address] TIMBO BAIG Facility:[facility] Start: 07-09-2022 End: 07-10-2022 ambulatory TITA RIVERA Facility:[facility] Start: 04-29-2022 End: 04-29-2022 ambulatory Niya Baker Other [employer] Other Start: 04-29-2022 Follow-up encounter Niya Barber [facility] Surgery Start: 04-29-2022 End: 04-29-2022 Patient encounter procedure DO Timbo Baig Work Phone: [facility] Ctr-Ultrasound [facility] Start: 04-27-2022 End: 04-28-[address] TIMBO BAIG Facility:[facility] Start: 04-19-2022 End: 04-19-2022 Patient encounter procedure Salome LOYA [facility] Start: 04-18-2022 End: 04-19-[address] SALOME LOYA . Facility:[facility] Start: 03-13-2022 Adult health examination Jaylon Finnegan Other [facility] [employer] Other Procedures Date Procedure Procedure Detail Performing Clinician Start: 05-12-2025 Ankle brachial press ure index Timbo Ball DO Work Phone: Start: 05-12-2025 Doppler ultrasonogra phy of bilateral carotid arteries Timbo Ball DO Work Phone: Start: 12-07-2024 Pulse volume recorde r plethysmography Timbo Ball DO Work Phone: Start: 10-18-2024 Angiography Timbo B all DO Work Phone: Start: 10-04-2024 Lower limb angiography Timbo Ball DO Work Phone: Start: 08-26-2024 Pulse volume recorde r plethysmography DO Timbo Ball Work Phone: Start: 08-25-2024 Radionuclide myocard ial perfusion stress study DO Timbo Ball Work Phone: Start: 05-06-2024 Doppler ultrasonogra phy of bilateral carotid arteries DO Timbo Ball Work Phone: Start: 09-04-2023 Ankle brachial press ure index DO Timbo Ball Work Phone: Start: 05-22-2023 Extracorporeal shock wave lithotripsy of calculus of kidney Salome LOYA Start: 04-12-2023 Flu B PA Aury Wolffhorabi Work Phone: Start: 04-12-2023 Rapid Strep PA Aury Shehorn Work Phone: Start: 08-31-2020 Extracorporeal shock wave lithotripsy of calculus of kidney Salome LOYA Start: 05-23-2020 Cystoscopy Salome LEWIS Start: 06-17-2019 [...] Cystoscopy Salome LEWIS Start: 11-10-2002 Cystoscopy Salome LEWIS Start: 11-10-2002 Transurethral prostatectomy Salome LOYA Comment on above: w/ Cystoscopy Start: 11-10-2001 Transrectal biopsy o f prostate using ultrasound guidance Salome LOYA Cystoscopy Salome LOYA Depression screening Jaylon Finnegan Other Hemorrhoidectomy Salome CARLTON ABREU Herniated structure (morphologic abnormality) Slaome LOYA History of coronary artery bypass grafting S/P CABG (coronary artery bypass graft) Timbo Baig DO Work Phone: Urodynamic studies Salome SMITH Plan of Treatment Date Care Activity Detail Author Start: 05-12-2025 Ankle brachial press ure index US ankle/arm indices [facility] Start: 05-12-2025 Doppler ultrasonogra phy of bilateral carotid arteries US carotid doppler BI [facility] Start: 12-07-2024 Pulse volume recorde r plethysmography [facility] Start: 10-18-2024 [facility] Start: 10-04-2024 [facility] Start: 08-26-2024 Pulse volume recorde r plethysmography [facility] Start: 08-25-2024 Radionuclide myocard ial perfusion stress study NM charito perf SPECT rest & str [facility] Start: 08-16-2024 [facility] Start: 06-30-2024 Patient referral [facility] Work Phone: Start: 05-06-2024 Doppler ultrasonogra phy of bilateral carotid arteries US carotid doppler BI [facility] Start: 05-06-2024 US.doppler Carotid a rteries - [facility] Start: 01-08-2024 Patient referral [facility] Work Phone: Start: 05-01-2023 Doppler ultrasonogra phy of bilateral carotid arteries US carotid doppler BI [facility] Start: 05-01-2023 US.doppler Carotid a rteries - bilateral [facility] Start: 04-29-2022 Doppler ultrasonogra phy of bilateral carotid arteries US carotid doppler [facility] Ankle brachial press ure index [facility] Comprehensive metabo lic 1999 panel - Serum or Plasma [facility] Comprehensive metabo lic 1999 panel - Serum or Plasma [facility] Comprehensive metabo lic 1999 panel - Serum or Plasma [facility] Patient Education [facility] Work Phone: Patient referral [facility] Work Phone: US.doppler Carotid a rteries - bilateral [facility] US.doppler Carotid a rteries -right [facility] XR Lumbar spine 4 Views [facility] Immunizations Immunization Date Immunization Notes Care Provider Noah jamison 07-29-2025 influenza, high dose seasonal, preservative-free Timbo Baig DO Work Phone: [facility] 07-16-2024 influenza virus vaccine, unspecified formulation Salome LOYA [facility] 07-30-2023 influenza virus vaccine, unspecified formulation Salome LOYA [facility] 08-04-2022 COVID-19 Pfizer (bivalent) Timbo Baig Other [facility] 08-04-2022 influenza virus vaccine, unspecified formulation Salome LOYA [facility] 08-04-2022 influenza, high dose seasonal, preservative-free Timbo Baig Other [employer] Other 02-21-2022 COVID-19 Pfizer Timbo velasco Other [facility] 02-21-2022 SARS-CoV-2 mRNA (mtgpzabquxo-zmdy-bbqmy se) vaccine Salome LOYA [facility] 09-06-2021 zoster vaccine recombinant Timbo Baig Other [facility] 08-10-2021 influenza virus vaccine, unspecified formulation Salome LOYA [facility] 08-07-2021 COVID-19 Vaccine Pfi zer - Documentation Purposes Only Timbo Baig Other [facility] Comment on above: Result Comment: 2022: [id number] 07-19-2021 influenza virus vaccine, unspecified formulation Salome LOYA [facility] 05-16-2021 zoster vaccine recombinant Timbo Baig Other [facility] 01-09-2021 COVID-19 Vaccine Pfi zer - Documentation Purposes Only Timbo Baig Other [facility] Comment on above: Result Comment: 2022: [id number] 12-19-2020 COVID-19 Vaccine Pfi zer - Documentation Purposes Only Timbo Jenniffer Other [facility] Comment on above: Result Comment: 2022: [id number] 07-31-2020 influenza virus vaccine, unspecified formulation Salome LOYA [facility] 08-20-2019 influenza virus vaccine, split virus (incl. purified surface antigen) Jaylon Finnegan Other [facility] Other 08-20-2019 influenza virus vaccine, unspecified formulation [facility] 08-10-2019 influenza virus vaccine, unspecified formulation Salome LOYA [facility] 02-19-2019 pneumococcal polysaccharide vaccine, 23 valent Timbo Baig Other [facility] 09-21-2018 influenza virus vaccine, unspecified formulation Salome LOYA [facility] 08-19-2018 influenza virus vaccine, split virus (incl. purified surface antigen) Jaylon Finnegan Other [facility] Other 08-19-2018 influenza virus vaccine, unspecified formulation [facility] 02-16-2018 pneumococcal conjuga te vaccine, 13 valent Timbo Baig Other [facility] 09-02-2017 influenza virus vaccine, unspecified formulation Salome LOYA [facility] 08-28-2016 influenza virus vaccine, unspecified formulation Salome LOYA [facility] 08-22-2015 influenza virus vaccine, unspecified formulation Salome LOYA [facility] 08-19-2013 influenza virus vaccine, unspecified formulation Salome LOYA [facility] Payers Date Payer Category Payer Self-pay [id number] 2024 Medicare [id number] Medicare [id number] 1959 Private Health Insurance [id number] 1940 Unknown [id number] 2.16.84 [id number] 1940 Unknown [id number] 2.16.84 0.1.901707.3.579.2.593 1942 Unknown [id number] 2.16.84 0.1.166164.3.579.2.593 1942 Unknown [id number] 2.16.84 0.1.631276.3.579.2.593 1942 Unknown [id number] 2.16.84 0.1.217932.3.579.2.593 1942 Unknown [id number] 2.16.84 0.1.178159.3.579.2.1259 1942 Unknown [id number] 2.16.8 40.1.077799.3.579.2.727 1942 Unknown [id number] 2.16.8 40.1.605254.3.579.2.727 Unknown [id number] 2.16.8 40.1.319619.3.579.2.531 Unknown [id number] 2.16.8 40.1.698330.3.579.2.531 Unknown [id number] 2.16.8 40.1.195897.3.579.2.531 Unknown [id number] 2.16.8 40.1.366054.3.579.2.531 Unknown [id number] 2.16.8 40.1.422659.3.579.2.531 Unknown [id number] 2.16.8 40.1.262857.3.579.2.531 Unknown [id number] 2.16.8 40.1.338641.3.579.2.531 Social History Date Type Detail Facility Start: 08-27-2021 End: 12-29-2024 Tobacco smoking status Ex-smoker (finding) [facility] Sex Assigned At Male [facility] Start: 1940 Sex Assigned At Male [facility] Start: 04-12-2023 Alone [facility] Start: 04-12-2023 0 [facility] Start: 03-12-2024 Tobacco smoking stat us KSIS Never smoked tobacco (finding) [facility] Start: 11-25-2024 End: 12-29-2024 Sex Male (finding) [facility] Medical Equipment Procedure Code Equipment Code Equipment Origin al Text Equipment Identifier Dates Angiogram, lower extremity, left Multiple peripheral artery stent, bare-metal ()[id number] 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 acute Sept dick 2024 9:59am Carotid stenosis, bilateral acute July 29, 2025 9:59am Chronic heart failure with preserved ejection fraction (HFpEF) acute July 29, 2025 9:59am Chronic kidney disease acute Se ptember 2024 9:59am Hypercholesterolemia acute Jul emb2024 9:59am Hypertension acute July 292024 9:59am Primary insomnia acute Julembe r 2024 9:59am Subclinical hypothyroidism acute July 29, 2025 9:59am [facility] Work Phone: 1(860) 868-832507-03-2025 [facility] [address] [place] [address] Ultrasound Report Signed Patient: Max Brady MR#: [id number] : 1940 Acct:[id number] Age/Sex: 84 / M ADM Date: 5 Loc: [facility] Room: Type: [facility] Attending Dr: Jaylon Finnegan MD Ordering Provider: [...] right common carotid artery are 97.3 cm/s peaksystolic and 19.7 cm/s end-diastolic proximally and 81.6 cm/s peak systolic and20.6 cm/s end-diastolic distally. The peak systolic velocity ratio of the internal to the common carotid artery is 4.23 . The right external carotid artery measures 203 cm/s peak systolic. The right vertebral artery is patent at59.5 cm/s peak systolic with antegrade flow. The left proximal internal carotid artery shows a highest peak systolic velocityof 185 cm/s with anend-diastolic velocity of 65.9 cm/s . The mid internal carotid artery measures 158 cm/s peak systolic with an end diastolic velocity of48.5 cm/s . The distal segment measures 71.8 cm/s peak systolic and 23.1 cm/s end diastolic. The velocities of the left common carotid artery are 108 cm/s peak systolic and 22.5 cm/s end-diastolic proximally and 99.9 cm/s peak systolicand 24.7 cm/s end-diastolic distally. The peak systolic velocity ratio of the internal to the common carotid artery is 1.85 . Theleft external carotid artery measures 168 cm/s peak [...] Finnegan MD,FACS,FSVS 05/12/2025 11:52 AM Dictation Location: [id number] Tech: Merle Donaldson Transcribed By: DANIEL 05/12/25 1152 Dictated By: Jaylon Finnegan MD 05/12/25 1151 Signed By: 05/12/25 1152 [facility] Work Phone: 1(654) 875-934307-03-2025 [facility]iology [facility] [address] [place] [address] Ultrasound Report Signed Patient: Max Brady MR#: [id number] : 1940 Acct:[id number] Age/Sex: 84 / M ADM Date: 5 Loc: [facility] Room: Type: [facility] Attending Dr: Jaylon Finnegan MD Ordering Provider: Jaylon Finnegan MD Date of Service: 05/12/25 US/US ankle/arm indices: I70.213 - Atherosclerosis ofnative arteries of extremiti... Copies to: Jaylon Finnegan MD~ LOWER EXTREMITY SEGMENTAL ARTERIAL DOPSCAN (PVR) INDICATION: Right leg claudication. PROCEDURE: Right arm blood pressure is 105 , left is 112 . Pressures of the right leg are 88 at theankle using the posterior tibial artery and 82 at the ankle using the dorsalis pedis artery with ankle-brachial index of 0.73 0.79 . Pressures of the left leg are 119 at the ankle using the posterior tibial arteryand 112 at the ankle using the dorsalis pedis artery with ankle-brachial index of 1.00 1.06 . Wave forms by plethysmography are biphasic, bilaterally. 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 Impression dictated by: Jaylon Finnegan MD,FACS,FSVS 05/12/2025 11:51 AM Dictation Location: [place] [address] Tech: Pam Sheehan Transcribed By: DANIEL 05/12/25 115 Dictated By: Jaylno Finnegan MD 05/12/25 115 Signed By: 05/12/25 [facility] Work Phone: 1(523) 454-782305-09-2025 Evaluation note* Diagnosis Onset Date Resolution Status Admit Date ASHD (arteriosclerotic heart disease) acute March 18, 2025 9: 57am 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 acute March 18, 2025 9: 57am Carotid stenosis, bilateral acute March 18, 2025 9:57am Chronic heart failure with p reserved ejection fraction (HFpEF) acute March 9:57am Chronic kidney disease acute 2024 9:57am Elevated TSH acute March 18 9:57am Hypercholesterolemia acute March 18, 2025 9:57am Hypertension acute March 18 9:57am Medicare annual wellness vis it, subsequent acute March 18, 2025 9: 57am Primary insomnia acute March 18, 2025 9:57am [facility] Work Phone: 1(505) 150-596405-09-2025 Evaluation note* Diagnosis Onset Date Resolution Status Admit Date ASHD (arteriosclerotic heart disease) acute March 18, 2025 9: 57am 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 acute March 18, 2025 9: 57am Carotid stenosis, bilateral acute March 18, 2025 9:57am Chronic heart failure with p reserved ejection fraction (HFpEF) acute March 9:57am Chronic kidney disease acute 2024 9:57am Elevated TSH acute March 18 9:57am Hypercholesterolemia acute March 18, 2025 9:57am Hypertension acute March 18 9:57am Medicare annual wellness vis it, subsequent acute March 18, 2025 9: 57am Primary insomnia acute March 18, 2025 9:57am Right-sided extracranial car otid artery stenosis acute May 12, 2025 10:37am [facility] Work Phone: 1(725) 170-150012-09-2024 Evaluation note* Diagnosis Onset Date Resolution Status Admit Date PAD (peripheral artery disease) acut e October 18, 2024 8:56am Carotid stenosis, bilateral acute October 26, 2024 8:58am Chronic heart failure with preserved ejection fraction (HFpEF) acute October 26, 024 8:58am Coronary artery disease invo lving cowlitz coronary artery of cow[place] heart wi acute October 26, 2 024 8:58am Nonrheumatic mitral (valve) stenosis acute October 26, 2 024 8:58am PAD (peripheral artery disease) acut e October 26, 2024 8:58am S/P aortic valve replacement with bioprosthetic valve acute October 8:58am S/P CABG (coronary artery by pass graft) acute October 26, 2 024 8:58am ASHD (arteriosclerotic heart disease) acute October 28, 2 024 2:47pm 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 acute October 28, 2 024 2:47pm Carotid stenosis, bilateral acute October 28, 2024 2:47pm Chronic heart failure with preserved ejection fraction (HFpEF) acute October 28, 024 2:47pm Hypercholesterolemia acute Dece mber 2023 2:47pm Hypertension acute October 2:47pm Primary insomnia acute October 28, 2024 2:47pm Former smoker acute November 9:58am PAD (peripheral artery disease) acut e November 25, 2024 9:58am Right leg claudication acute Ja nuary 2024 9:58am [facility] Work Phone: 1(649) 879-369311-11-2024 Hospital Discharge instructions Patient Education 09/20/2024 12:11:28 Kidney Stones, Rtwj-hj-Nlxo Kidney Stones Kidney stones are rock-like masses [...] Follow these instructions at home: Medicines Take raoj-rux-gnhcgmu and prescription medicines only as told by [...] Kidney Foundation (NKF): [email or web address] [facility] (UCF): [email or web address] Contact a doctor if: You have [...] provider. Document Revised: 06/20/2023 Document Reviewed: 06/20/2023 [employer] Patient Education 2023 [email or web address]. Follow Up Care 04/21/2023 10:27:24 With:REINIER HUSAIN, Salome Jaramillo, URL Address: [facility] [address], [place] [address]- [phone] When: Unknown Comments:1 yr w/ KUJohnathon [facility] 11-11-2024 NotePatient Education Urology Kidney Stones [...] these instructions at home: Medicines ??? Take zmum-bfk-umixlfy and prescription medicines only as told by [...] provider. Document Revised: 06/20/2023 Document Reviewed: 06/20/2023 [employer] Patient Education ? 2023 [employer] 09-15-2024 Evaluation note* Diagnosis Onset Date Resolution Status Admit Date PAD (peripheral artery disease) acut e September 15, 2024 11:48am PAD (peripheral artery disease) acut e October 18, 2024 8:56am Carotid stenosis, bilateral acute October 26, 2024 8:58am Chronic heart failure with preserved ejection fraction (HFpEF) acute October 26 8:58am Coronary artery disease invo lving cowlitz coronary artery of [place] heart wi acute October 26 8:58am Nonrheumatic mitral (valve) stenosis acute October 26 8:58am PAD (peripheral artery disease) acut e October 26, 2024 8:58am S/P aortic valve replacement with bioprosthetic valve acute October 8:58am S/P CABG (coronary artery by pass graft) acute October 26 8:58am ASHD (arteriosclerotic heart disease) acute October 28 2:47pm 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 acute October 28 2:47pm Carotid stenosis, bilateral acute October 28, 2024 2:47pm Chronic heart failure with preserved ejection fraction (HFpEF) acute October 28, 2 024 2:47pm Hypercholesterolemia acute Dece mb2023 2:47pm Hypertension acute October 2:47pm Primary insomnia acute October 28, 2024 2:47pm Former smoker acute November 9:58am PAD (peripheral artery disease) acut e November 25, 2024 9:58am Right leg claudication acute Ja nuary 2024 9:58am [facility] Work Phone: 1(202) 209-329910-22-2024 Evaluation note* Diagnosis Onset Date Resolution Status [...] preserved ejection fraction (HFpEF) acute October 26, 2 024 8:58am Coronary artery disease invo lving cowlitz coronary artery of cow[place] heart wi acute October 26, 2 024 8:58am Nonrheumatic mitral (valve) stenosis acute October 26, 2 024 8:58am PAD (peripheral artery disease) acut e October 26, 2024 8:58am S/P aortic valve replacement with bioprosthetic valve acute October 8:58am S/P CABG (coronary artery by pass graft) acute October 26, 2 024 8:58am ASHD (arteriosclerotic heart disease) acute October 28, 2 024 2:47pm 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 acute October 28, 2 024 2:47pm Carotid stenosis, bilateral acute October 28, 2024 2:47pm Chronic heart failure with preserved ejection fraction (HFpEF) acute October 28, 2 024 2:47pm Hypercholesterolemia acute Dece mber 2023 2:47pm Hypertension acute October 2:47pm Primary insomnia acute October 28, 2024 2:47pm [facility] Work Phone: 1([phone]) 445-450703-07-2024 NotePatient here for 1 mo follow up [...] pain. All other systems reviewed and are negative.[facility] 01-15-2024 NoteCardiovascular Medicine [facility] SUBJECTIVE Chief Complaint Patient presents with Coronary Artery Disease Congestive Heart Failure Hypertension Hyperlipidemia Max Brady is a 83 y.o. male here for follow-up. HPI PMHx: AVR 2014, CAD s/p CABG x1 2014, HTN, carotid stent by vascular surgeon in [place] (Dr. Cedillo) 01/15/2024 He notes that his [...] 7. Mild mitral va (more content not included)...[facility]02-07-2024 NotePatient here for 1 year follow up [...] pain. All other systems reviewed and are negative.[facility] 12-17-2023 NoteCardiovascular Medicine [facility] SUBJECTIVE No chief complaint on file. Max Brady is a 83 y.o. male here for follow-up. HPI PMHx: AVR 2014, CAD s/p CABG x1 2015, HTN, carotid stent by vascular surgeon in [place] (Dr. Cedillo) He works out a few [...] aortic stenosis by invasive hemodynamic study. 2. Qwfexnle-hl-tqbagi two-vessel coronary artery disease involving the left anterior descending and left circumflex coronary arteries. 3. Normal right-sided heart pressures and wedge pressure. 4. Normal cardiac output/cardiac index. 5. 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 (more content not included)...[facility]01-12-2024 Evaluation note* Encounter Date Diagnosis Assessment Notes [...] a couple years. - previously referred to [facility] Neuro[facility] but declined treatment He [...] and feet daily for blisters and ulcerations. [facility] Other 11-15-2023 Evaluation note* Encounter Date Diagnosis [...] w/ lumbar spondylosis Sep, Atherosclerosis of b h lower extremities with intermittent claudication (ICD-10 - [...] w/ serial Echocardiogram Control BP and HR [facility] Other 10-26-2023 Evaluation note* Encounter Date Diagnosis [...] pain which seems to be bothering him. [facility] Other 10-16-2023 Hospital Discharge instructions Patient Education [...] include: ?8 oz (237 mL) of milk, ioistms-ojymwvtuxdty-sejkh milk, and calcium- fortifiedfruit juice. Calcium-fortified means [...] ?Spinach (cooked), rhubarb, beets, sweet potatoes, and Georgian chard. ?Peanuts. ?Potato chips, paraguayan fries, and baked potatoes with skin on. ?Nuts and nut products. ?Chocolate. If you regularly take a diuretic medicine, make sure to eat at least 1 or 2 servings of fruits or vegetables that are high in potassium each day. These include: ?Avocado. ?Banana. ?[place], prune, carrot, or tomato juice. ?Baked potato. [...] magnesium, fish oil, or vitamin B6. Take xtag-zjx-novydtk and prescription medicines only as told by [...] Casseroles. Pizza. Lasagna. Frozen meals. Potato chips. Macedonian fries. The items listed above may not [...] provider. Document Revised: 07/08/2022 Document Reviewed: 07/08/2022 [employer] Patient Education 2022 [email or web address]. Follow Up Care 05/30/2023 13:07:47 With:REINIER HUSAIN, Salome Jaramillo, URL Address: [facility] [address], [place] [address]- When:Within 1 Year(s) Comments:w/MELQUIADES [facility] 05-15-2023 Evaluation note* Encounter Date [...] High risk medication use (ICD-10 - Z79.899) [facility] Other 06-20-2022 Evaluation note* Encounter Date Diagnosis [...] agrees with this plan, denies any questions. [facility] Other 06-10-2022 Hospital Discharge instructions Patient Education 04/19/2022 10:54:30 Kidney Stones, Dwdo-hp-Fvbp Kidney Stones Kidney stones are rock-like masses [...] Follow these instructions at home: Medicines Take uweq-ssm-nphdxxb and prescription medicines only as told by [...] 04/14/2009 Document Revised: 03/14/2020 Document Reviewed: 03/14/2020 [employer] Patient Education 2020 [email or web address]. Follow Up Care 08/27/2021 10:53:23 With:Salome LOYA MD, URL Address: [facility] [address], [place] [address] [phone] When:04/19/2023 [facility] evaluation + Plan note Future Appointments Appointment Date:04/21/2023 09:45:00 AM Scheduled Provider:Salome LOYA MD Location:[facility] Appointment Type:URO Office Visit [facility] evaluation + Plan note Future Appointments Appointment Date:08/30/2024 10:30:00 AM Scheduled Provider:Salome LOYA MD Location:[facility] Appointment Type:URO Office Visit [facility] evaluation + Plan note Future Appointments Appointment Date:09/26/2025 10:30:00 AM Scheduled Provider:Salome LOYA MD Location:[facility] Appointment Type:URO Office Visit [facility] evaluation noteNo assessment information available [facility] Work Phone: Evaluation note* Diagnosis Onset Date Resolution Status Viral URI acute [facility] [employer] [facility] Work Phone: Evaluxygcn noteNo InformationNort [employer] Other Evaluation note* Diagnosis Onset Date Resolution [...] acute Medicare annual wellness visit, subsequent noneactive [facility] Work Phone: Evaluation note* Diagnosis Onset Date Resolution Status ASHD (arteriosclerotic heart disease) acute 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 acute Carotid stenosis, bilateral acute Chronic kidney disease acute Hypercholesterolemia acute Hypertension acute Lumbar spondylosis with myelopathy acute Medicare annual wellness visit, subsequent noneactive History of left common carot id artery stent placement acute [facility] Work Phone: Evaluation note* Diagnosis Onset Date Resolution Status History of left common carotid artery stent placement acute ASHD (arteriosclerotic heart disease) acute 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 acute Carotid stenosis, bilateral acute Chronic kidney disease acute Hypercholesterolemia acute Hypertension acute Lumbar spondylosis with myelopathy acute [facility] Work Phone: Evaluation note* Diagnosis Onset Date Resolution Status ASHD (arteriosclerotic heart disease) acute 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 acute Carotid stenosis, bilateral acute Chronic heart failure with p reserved ejection fraction (HFpEF) acute Chronic kidney disease acute Hypercholesterolemia acute Hypertension acute Lumbar spondylosis with myelopathy acute Nonrheumatic mitral (valve) stenosis acute [facility] Work Phone: Evaluation note* Diagnosis Onset [...] fraction (HFpEF) acute Hypercholesterolemia acute Hypertension acute [facility] Work Phone: Evaluation note* Diagnosis Onset Date Resolution Status ASHD (arteriosclerotic heart disease) acute 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 acute Carotid stenosis, bilateral acute Chronic kidney disease acute Hypercholesterolemia acute Hypertension acute Lumbar spondylosis with myelopathy acute Medicare annual wellness visit, subsequent noneactive [facility] Work Phone: History general Narrative - Reported* Type Description Date Medical History carotid stenosis Medical History HTN Surgical History heart valve replaced 2013 Surgical History left internal carotid angioplas ty and stent 2011 [facility] Other History general Narrative - Reported* Type [...] RIGHT 2019 Hospitalization History SEE SURGICAL HX [facility] Other History general Narrative - Reported* Type [...] kidney 05/2023 Hospitalization History SEE SURGICAL HX [facility] Other Hospital course Narrative No data available for this section [facility] progress note No data available for this section [facility] reason for referral (narrative)* Reason Referral for lumbar foraminal stenosis and left lower extremity weakness. 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 372) Referral Organization [facility] [employer] Referring Provider First Name Timbo Referring Provider Last Name Jenniffer Referring Provider Specialty Internal Me dicine Referred Organization [facility] Referred Provider Boby Mai [place]erred [place], [place],[address] Referred Provider Specialty Neurological Surgery Referral Priority [...] Notes Include recent and p revious MRI [facility] Other Reason for referral (narrative)No reason for referral information available[facility] Work Phone: Chief Complaint and Reason for Visit Chief [...] 2024 8:58am Coronary artery disease invo lving cowlitz coronary artery of cowlitz heart wi October 26, 2024 8:58am Nonrheumatic [...] 2024 9:43am PVD w/Serve Claudication October 18, 2 024 8:56am PVD w/Serve Claudication October 18 2 024 11:37am 6weeks October 26, 2024 [...] 2024 8:58am Coronary artery disease invo lving cowlitz coronary artery of cow[place] heart wi October 26, 2024 8:58am Nonrheumatic [...] 2024 9:43am PVD w/Serve Claudication October 18, 2 024 8:56am PVD w/Serve Claudication October 18 2 024 11:37am 6weeks October 26, 2024 8:58am 4 month f/u October 28, 2024 2:47pm CC Adult Risk Stratification November 042023 10:40am 4 week follow up;pad November 25, 2024 9:58am [id number] December 07, 2024 1 2:50pm [facility]LLOW UP FROM [facility] December 29, 2024 10:14am Reason for Visit Admit Date PAD (peripheral artery disease) October 18, 2024 8:56am Carotid stenosis, bilateral October 8:58am Chronic heart failure with p reserved ejection fraction (HFpEF) October 26, 2024 8:58am Coronary artery disease invo lving cowlitz coronary artery of cowl[place] heart wi October 26, 2024 8:58am Nonrheumatic [...] November 25 9:58am Chief Complaint Admit Date Wellness March 18, 2025 9:57am 1 YR FOLLOW UP; CHING'S, CAROTID 1O:30A Ju ly 2024 10:37am I65.23 May 12, 2025 10:38 am i70.213 i73.9 May 12, 2025 10:45 am Reason for Visit Admit Date ASHD (arteriosclerotic heart disease) Rolando y 2024 9:57am 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 March 18, 2025 9:57am Carotid stenosis, bilateral March 18 9:57am Chronic heart failure with preserved eje ction fraction (HFpEF) March 18, 2025 9:57am Chronic kidney disease March 18, 2025 9:5 7am Elevated TSH March 18, 2025 9:57am Hypercholesterolemia March 18, 2025 9:57a m Hypertension March 18, 2025 9:57am Medicare annual wellness visit, subseque nt March 18, 2025 9:57am Primary insomnia March 18, 2025 9:57am Reason for Visit Admit Date ASHD (arteriosclerotic heart disease) Rolando y 2024 9:57am 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 March 18, 2025 9:57am Carotid stenosis, bilateral March 18 9:57am Chronic heart failure with preserved eje ction fraction (HFpEF) March 18, 2025 9:57am Chronic kidney disease March 18, 2025 9:5 7am Elevated TSH March 18, 2025 9:57am Hypercholesterolemia March 18, 2025 9:57a m Hypertension March 18, 2025 9:57am Medicare annual wellness visit, subseque nt March 18, 2025 9:57am Primary insomnia March 18, 2025 9:57am Right-sided extracranial carotid artery stenosis May 12, 2025 10:37am Chief Complaint Admit Date 1 YR FOLLOW UP; CHING'S, CAROTID 1O:30A Ju ly 2024 10:37am I65.23 May 12, 2025 10:38 [...] 2025 9:59am Chronic kidney disease July 29, 025 9:59am Hypercholesterolemia July 29 9:59am Hypertension July 29, 2025 9:59am Primary insomnia July 29, 2025 9:59am Subclinical hypothyroidism July 9:59am Advance Directives Advance Directive Response Recorded Date/ Time Advance Directives No March 08 019 1:37pm Advance Directive Response Recorded Date/ Time Advance Directives Yes December 3:47pm Advance Directive Response Recorded Date/ Time Advance Directives Yes August 16, 2024 2:59pm Advance Directive Response Recorded Date/ Time Advance Directives Yes September 15, 2024 11:47am Advance Directive Response Recorded Date/ Time Advance Directives Yes September 15, 2024 12:47pm Summary Purpose Family History Relationship Condition Age [...] Member Role Status Dates Abimael Cruz MD Support Group Manager Active Timbo Baig DO Primary Care Provider Active Team Status: Inactive Member Role Status Omra Baig DO Primary Care Provider Active Start: [...] Care Provider Active Start: May 06, 2024 ALISA CabreraC Attending Provider Active Start: May 06, 2024 [...] December 07, 2024 End: December 07, 2024 ALISA CabreraC Attending Provider Active Start: December 07, 2024 End: December 07, 2024 Team Status: Inactive Member Role Status Omar Baig DO Primary Care Provider Active Start: December 29, 2024 End: December 29, 2024 Jaylon Finnegan MD Attending Provider Active Start: December 29, 2024 End: December 29, 2024 Team Status: Inactive Member Role Status Omar Baig DO Primary Care Provider Active Start: March 18, 2025 End: March 18, 2025 Timbo Baig DO Attending Provider Active Sta rt: March 18, 2025 End: March 18, 2025 Team Status: Active Member Role Status Omar Baig DO Primary Care Provider Active Start: March 25, 2025 Timbo Baig DO Attending Provider Active Sta rt: March 25, 2025 Team Status: Inactive Member Role Status Omar Baig DO Primary Care Provider Active Start: May 12, 2025 End: May 12, 2025 Jaylon Finnegan MD Attending Provider Active Start: May 12, 2025 End: May 12, 2025 Team Status: Active Member Role Status Omar Baig DO Primary Care Provider Active Start: May 12, 2025 Jaylon Fninegan MD Attending Provider Active Start: May 12, 2025 Team Status: Inactive Member Role Status Omar Baig DO Primary Care Provider Active Start: July 29, 2025 End: July 29, 2025 Timbo Baig DO Attending Provider Active Sta rt: July 29, 2025 End: July 29, 2025 Goals (unrecognized section and content) Goals may be documented in a n alternate section REASON FOR VISIT (unrecogniz ed section and content) VASC 1 YR FU; CAROTID DUPLEX 1PWELLNESS MBNo InformationERRORMedication Clarification4 month follow up; CHING's B/L legs at 11:006 month Follow up6 month Follow upMRI resultsface to face for FREEMAN price- fax note to [phone] (unrecognized sect ion and content) No Status Records FoundNo Status Records FoundNo Status Records FoundNo Status Records FoundNo Status Records Found INFORMATION SOURCE (unrecogn ized section and content) DATE CREATED AUTHOR 03/25/2023 [facility] DATE CREATED AUTHOR AUTHOR'S ORGANIZ ATION 01/16/2024 [facility] DATE CREATED AUTHOR AUTHOR'S ORGANIZ ATION 02/12/2024 [facility] DATE CREATED AUTHOR AUTHOR'S ORGANIZ ATION 09/21/2024 [facility] DATE CREATED AUTHOR AUTHOR'S ORGANIZ ATION 06/01/2025 [facility] y[facility] FOR RECORDS PERTAINING TO PATIENTS [...] BE BASED ON THE PRIMARY CLINICAL RECORDS. [employer] [facility]. provides no warranty or guarantee of the accuracy or completeness of information in this document.
--- OUTSIDE RECORDS SUMMARY | 2025-07-30 08:14 | XMS_ITS | Clinical Summary ---
Author Organization [facility] Address [address] [place] [address] Care Team Providers Care Park Keeper Name Role Phone Timbo Baig DO Primary Care Provider [phone] Allergies No known active allergies Medications atorvastatin (Lipitor) 10 mg tablet Take 10 mg by mouth at bedtime. 12/20/2022 Active aspirin 81 mg EC tablet Take 1 tablet every day by oral route. Active citalopram (CeleXA) 20 mg tablet 06/28/2022 Active clopidogrel (Plavix) 75 mg tablet Take 1 tablet by mouth in the morning. 05/17/2019 Active finasteride (Proscar) 5 mg tablet 10/31/2022 Active hydroCHLOROthia zide (HYDRODiuril) 12.5 mg tablet Take 12.5 mg by mouth in the morning. Active metoprolol tartrate (Lopressor) 25 mg tablet Take 0.5 tablets by mouth in the morning and at bedtime. Active tamsulosin (Flomax) 0.4 mg 24 hr capsule 11/01/2023 Activ e furosemide (Lasix) 40 mg tabletIndicatio ns:Acute on chronic diastolic heart failure (CMS/HCC) TAKE 1 TABLET BY MOUTH EVERY DAY IN THE MORNING 90 tablet 3 01/12/2024 Active Klor-Con M10 10 mEq ER tabletIndicatio ns:Acute on chronic diastolic heart failure (CMS/HCC) TAKE 1 TABLET BY MOUTH IN THE MORNING WITH LASIX, DO NOT CRUSH OR CHEW 90 tablet 3 01/12/2024 Active Active Problems Problem Noted Date Diagnosed Date Diastolic heart failure 12/25/2023 Coronary arteriosclerosis 12/23/2022 Former smoker 12/23/2022 Gastroesophageal reflux disease 12/23/2022 History of anticoagulant therapy 12/23/2022 Hypogonadism in male 12/23/2022 Obstructive sleep apnea syndrome 08/05/2016 Kidney stone 07/22/2016 12/17/2023 Benign prostatic hyperplasia with urinary obstru ction 10/27/2015 Abnormal results of cardiovascular function stud ies 10/11/2014 Aortic valve disorder 10/11/2014 Benign essential hypertension 10/11/2014 Dizziness and giddiness 10/11/2014 Dyspnea 10/11/2014 Peripheral vascular disease 10/11/2014 Syncope and collapse 10/11/2014 Family History Medical History Relation Name Comments No Known Problems Father No Known Problems Mother Relation Name Status Comments Father Mother Social History Tobacco Use Types Packs/Day Years Used Date Smoking Tobacco: Former Cigarettes Smokeless Tobacco: Never Tobacco Cessation:Counseling Given: Not Answered Alcohol Use Standard Drinks/Week Comments Not Currently 0 (1 standard drink = 0.6 oz pur e alcohol) [place] Safety & Environment Answer Date Rec orded Fear of Current or Ex-Partner Not on file Emotionally Abused Not on file 01/01/2024 Physically Abused Not on file 01/01/2024 Sexually Abused Not on file 01/01/2024 Physically or Sexually Abused Not on file Sex and Gender Information Value Date Recorded Sex Assigned at Not on file Legal Sex Male 10:50 PM EDT Gender Identity Not on file Sexual Orientation Not on file Last Filed Vital Signs Vital Sign Reading Time Taken Comments Blood Pressure 100/76 01/15/2024 11:40 AM EST Pulse 73 01/15/2024 11:40 AM EST Temperature - - Respiratory Rate - - Oxygen Saturation 95% 01/15/2024 11:40 AM EST Inhaled Oxygen Concentration - - Weight 89.4 kg (197 lb) 01/15/2024 11:40 AM EST Height 177.8 cm (5' 10 ) 01/15/2024 11:40 AM EST Body Mass Index 28.27 01/15/2024 11:40 AM EST Plan of Treatment Health Maintenance Due Date Last Done Comments Medicare Annual Wellness (AWV) 1940 Depression Screening 1954 Adult Tetanus 1964 Fall Risk Screening 2007 COVID-19 Vaccine ( season) 2025 07/30/2023, 08/04/2022, 02/21/2022, Additional history exists Influenza Vaccine (#1) 2025 , 08/04/2022, 08/10/2021, Additional history exists Pneumococcal Vaccine: 50+ Years Completed 02/19/2019, 02/16/2018 Zoster Vaccines Completed 09/06/2021, 05/16/2021 HIB Vaccines Aged Out No longer eligi ble based on patient's age to complete this topic HPV Vaccines Aged Out No longer eligi ble based on patient's age to complete this topic IPV Vaccines Aged Out No longer eligi ble based on patient's age to complete this topic Meningococcal B Vaccine Aged Out No l onger eligible based on patient's age to complete this topic Meningococcal Vaccine Aged Out No steven samantha eligible based on patient's age to complete this topic Rotavirus Vaccines Aged Out No longer eligible based on patient's age to complete this topic [place] [address] [facility] Care Teams Park Keeper Relationship Specialty Start Date End Date Timbo Baig DO [address] [place] [address] [place] [address] PCP - General 12/23/22
--- OUTSIDE RECORDS SUMMARY | 2025-07-30 08:15 | XMS_ITS | Clinical Summary ---
Author Organization [facility] Address [address] [place] [address] Phone Care Team Providers Care Horse Show Judge Name Role Phone Unavailable Primary Care Provider Unavailabl e Social History Tobacco Use Types Packs/Day Years Used Date Smoking Tobacco: Never Assessed Sex and Gender Information Value Date Recorded Sex Assigned at Not on file Legal Sex Male 12:27 PM EDT Gender Identity Not on file Sexual Orientation Not on file Plan of Treatment Health Maintenance Due Date Last Done Comments Lipid Panel 1940 Yearly Adult Physical 1940 Pneumococcal Vaccine (1 of 2 - PCV) 1961 DTaP/Tdap/Td Vaccines (1 - Tdap) 1964 Zoster Vaccines (1 of 2) 1992 RSV High Risk: (Elderly (60+ ) or Population) (1 - 1-dose 75+ series) 2017 COVID-19 Vaccine ( - 2023-2 5 season) 2025 Influenza Vaccine (#1) 2025 HIB Vaccines Aged Out No longer eligi ble based on patient's age to complete this topic HPV Vaccines Aged Out No longer eligi ble based on patient's age to complete this topic Hepatitis A Vaccines Aged Out No long er eligible based on patient's age to complete this topic Hepatitis B Vaccines Aged Out No long er eligible based on patient's age to complete this topic IPV Vaccines Aged Out No longer eligi ble based on patient's age to complete this topic Meningococcal Vaccine Aged Out No steven samantha eligible based on patient's age to complete this topic Rotavirus Vaccines Aged Out No longer eligible based on patient's age to complete this topic Insurance MEDICARE RAILROAD Member Subscriber Plan / Payer (Ef fective 2007-Present) Name:Max Friedman Member ID:[id number] Relation to Subscriber:Self Name:Max Friedman Subscriber ID:[id number] Payer ID:Not on file Group ID:Not on file Type:Not on file Address: [facility] [id number] [address] MEDICARE RAILROAD
--- OUTSIDE RECORDS SUMMARY | 2025-07-30 08:16 | XMS_ITS | Encounter Summary ---
Author Organization [facility] Address [address] [place] [address] Care Team Providers Care Centrifuge Operator Name Role Phone Timbo Baig DO Primary Care Provider [phone] Reason for Visit * Reason Comments Med Change Request Encounter Details Date Type Department Care Team (Late st Contact Info) Description 01/08/2024 Refill [facility] [address] [place] [address] Alysia Rivera, TAX INTERN [address] [place] [address] Acute on chronic diastolic heart failure (CMS/HCC) Social History Tobacco Use Types Packs/Day Years Used Date Smoking Tobacco: Former Cigarettes Smokeless Tobacco: Never Alcohol Use Standard Drinks/Week Comments Not Currently [...] on file Sexual Orientation Not on file documented as of this encounter Plan of Treatment Not on file documented as of this encounter Visit Diagnoses Diagnosis Acute on chronic diastolic heart failure (CMS/HCC) Acute on chronic diastolic heart failure documented in this encounter Care Teams Centrifuge Operator Relationship Specialty Start Date End Date Timbo Baig DO [address] [facility] [place] [address] PCP - General 12/23/22 documented as of this encounter
--- OUTSIDE RECORDS SUMMARY | 2025-07-30 08:16 | XMS_ITS | Clinical Summary ---
Author Organization [facility] Healthcare Address [address] [facility] [place] [address] Care Team Providers Care Director Life Insurance Name Role Phone Unavailable Primary Care Provider Unavailabl e Allergies No known active allergies Medications tamsulosin (Flomax) 0.4 MG 24 hr capsule 11/01/2023 Activ e simvastatin (Zocor) 20 MG tablet Take 1 tablet every day by oral route for 90 days. Active KLOR-CON 10 MEQ ER tablet TAKE 1 TABLET BY MOUTH IN THE MORNING WITH LASIX, DO NOT CRUSH OR CHEW 01/12/2024 Active potassium chloride CR (Klor-Con M20) 20 MEQ ER tablet Active oxyCODONE (Roxicodone) 5 MG immediate release tablet Take 1 tablet every day by oral route at bedtime for 13 days. Active metoprolol tartrate (Lopressor) 25 MG tablet Take 0.5 tablets by mouth in the morning and 0.5 tablets before bedtime. Active amiodarone (Pacerone) 200 MG tablet Active aspirin 81 MG EC tablet Take 1 tablet by mouth Daily Active citalopram (CeleXA) 20 MG tablet Take 1 tablet every day by oral route for 30 days. Active clopidogrel (Plavix) 75 MG tablet Take 1 tablet by mouth Daily Active finasteride (Proscar) 5 MG tablet Take 1 tablet every day by oral route for 90 days. Active furosemide (Lasix) 40 MG tablet 01/12/2024 Active hydroCHLOROthia zide (HYDRODiuril) 12.5 MG tablet Take 1 tablet every other day by oral route for 90 days. Active lisinopril 2.5 MG tablet Active metoprolol succinate XL (Toprol-XL) 25 MG 24 hr tablet 09/18/2023 Act cyrus Active Problems Problem Noted Date Diagnosed Date Age-related nuclear cataract of both eyes 2023 Family History Medical History Relation Name Comments Cataracts Mother Diabetes Mother Relation Name Status Comments Mother Social History Tobacco Use Types Packs/Day Years Used Date Smoking Tobacco: Former Cigarettes Smokeless Tobacco: Never Tobacco Cessation:Counseling Given: Yes Sex and Gender Information Value Date Recorded Sex Assigned at Not on file Legal Sex Male 7:18 PM EDT Gender Identity Not on file Sexual Orientation Not on file Plan of Treatment Health Maintenance Due Date Last Done Comments Influenza Vaccine (#1) 2025 3, 08/04/2022, 07/19/2021, Additional history exists Pneumococcal Vaccine: 65+ Years Completed 9, 02/16/2018 [place] [address] [facility]
--- OUTSIDE RECORDS SUMMARY | 2025-07-30 08:17 | XMS_ITS | Encounter Summary ---
Author Organization [facility] Address [address] [place] [address] Phone Care Team Providers Care Rubber Turner Name Role Phone Unavailable Primary Care Provider Unavailabl e Encounter Details Date Type Department Care Team (Late st Contact Info) Description 08/25/2024 Scanned Document [facility] [address] [place] [address] Scanning, Generic Provider Social History Tobacco Use Types Packs/Day Years Used Date Smoking Tobacco: Never Assessed Sex and Gender Information Value Date Recorded Sex Assigned at Not on file Legal Sex Male 12:27 PM EDT Gender Identity Not on file Sexual Orientation Not on file documented as of this encounter Plan of Treatment Not on file documented as of this encounter Procedures Procedure Name Priority Date/Time Associated Diagnosis Comments STRESS TEST - ONBASE SCAN 08/25/2024 documented in this encounter Results * Stress Test - Onbase Scan (08/25/2024) Narrative 08/25/2024 Ordered by an unspecified provider. us Generic Provider Scanning CV STRESS PROCEDURES F inal Result documented in this encounter Visit Diagnoses Not on filedocumented in this encounter
[2025-07-30 10:24] LABS: Anion Gap 13.9; Blood Urea Nitrogen 16.0 mg/dL (7.0-18.0); Calcium 8.8 mg/dL (8.5-10.1); Carbon Dioxide 26.9 mmol/L (21.0-32.0); Chloride 107 mmol/L (98-107); Estimated GFR (African America >60 (>=60 mL/min/1.73m^2); Estimated GFR (Non-African Ame 58 (>=60 mL/min/1.73m^2); Glucose 109 mg/dL (74-106); Potassium 3.8 mmol/L (3.5-5.1); Sodium 144 mmol/L (136-145); TSH W/ REFLEX FT4 5.026 uIU/mL (0.358-3.740)
[2025-07-30 11:06] LABS: Ferritin 49.0 ng/mL (26.0-388.0); Folate 8.50 ng/mL (8.60-58.90)
[2025-07-31 06:37] LABS: Vitamin B12 1006 pg/mL (232-1245)
== END 2025-07-30 08:11 | disposition home or self-care (01) ==
LOC: LAB 08:11
PROVIDERS: PCP Internal Medicine; Visit Provider Internal Medicine
DX: E03.8 Other specified hypothyroidism (principal); N18.31 Chronic kidney disease, stage 3a; D64.9 Anemia, unspecified; R79.89 Other specified abnormal findings of blood chemistry
CPT/HCPCS: 36415; 80048; 82607; 82728; 82746; 84439; 84443

== ENCOUNTER 2025-08-11 12:28 | Outpatient (OUT) | payer MEDICARE, OTHER, SELFPAY ==
--- OUTSIDE RECORDS SUMMARY | 2025-08-11 12:30 | XMS_ITS | Clinical Summary ---
Author Organization [facility] Address [address] [place] [address] Phone Care Team Providers Care Deal Architect Name Role Phone Unavailable Primary Care Provider [...] Payer (Ef fective 2007-Present) Name:Max Friedman Member ID:[id number] Relation to Subscriber:Self Name:Max Friedman Subscriber ID:[id number] Payer ID:Not on file Group ID:Not on file Type:Not on file Address: [facility] [id number] [address] MEDICARE RAILROAD
--- OUTSIDE RECORDS SUMMARY | 2025-08-11 12:30 | XMS_ITS | Encounter Summary ---
Author Organization [facility] Address [address] [place] [address] Phone Care Team Providers Care Residential Energy Auditor Name Role Phone Unavailable Primary Care Provider Unavailabl e Encounter Details Date Type Department Care Team (Late st Contact Info) Description 08/25/2024 Scanned Document [facility] [address] [place] [address] Scanning, Generic Provider Social History [...]
--- OUTSIDE RECORDS SUMMARY | 2025-08-11 12:30 | XMS_ITS | Clinical Summary ---
Author Organization [facility] Healthcare Address [address] [facility] [place] [address] Care Team Providers Care Police Artist Name Role Phone Unavailable Primary Care Provider [...] 65+ Years Completed 9, 02/16/2018 [place] [address] [facility]
--- NOTE | 2025-08-11 12:40 | PM.CN ---
Consult Note: HPI Data of Consult Patient: new to practice Requesting Physician: Yamile Mg NP Primary Care Provider: Timbo Baig, Consult Narrative Reason for consult: establish care Narrative: Max Friedman a 85 year old male presents to establish care for chronic low back pain >10 years. Pt has a hx of lumbar stenosis on prior MRI, was evaluated by [facility] and recommended to consider surgical intervention however pt is not interested. Pt has longstanding low back pain unresponsive to >6 weeks of provider guided HEP, heat, ice, tylenol, and cannot take NSAIDs as he is on plavix. Pt engages in provider guided HEP 3x/week around 30 minutes without improvement, could not tolerate formal PT in the past due to increased pain. Pain today 2/10 increasing to 10/10 with standing, walking, housework, cooking. Notes significant relief with forward flexion and sitting. cc:: CC: Yamile Mg NP Review of Systems ROS Musculoskeletal Reports: back pain PFSH PFSH Medical History (Updated 08/11/25 @ 13:11 by Yamile Mg NP) BPH (benign prostatic hyperplasia) ?N40.0 - Benign prostatic hyperplasia without lower urinary tract symptoms (ICD-10) Kidney stones ?N20.0 - Calculus of kidney (ICD-10) Hypertension ?I10 - Essential (primary) hypertension (ICD-10) High cholesterol ?E78.00 - Pure hypercholesterolemia, unspecified (ICD-10) Coronary artery disease ?I25.10 - Atherosclerotic heart disease of [place] coronary artery without angina pectoris (ICD-10) S/P extracorporeal shock wave therapy ?Z98.890 - Other specified postprocedural states (ICD-10) Surgical History History of cataract extraction ?Z98.49 - Cataract extraction status, unspecified eye (ICD-10) History of repair of rotator cuff ?Z98.890 - Other specified postprocedural states (ICD-10) History of colonoscopy ?Z98.890 - Other specified postprocedural states (ICD-10) History of hernia repair ?Z98.890 - Other specified postprocedural states (ICD-10) ?Z87.19 - Personal history of other diseases of the digestive system (ICD-10) History of hemorrhoidectomy ?Z98.890 - Other specified postprocedural states (ICD-10) Hx of prostate biopsy ?Z98.890 - Other specified postprocedural states (ICD-10) H/O transurethral resection of prostate ?Z98.890 - Other specified postprocedural states (ICD-10) ?Z90.79 - Acquired absence of other genital organ(s) (ICD-10) S/P cystoscopy ?Z98.890 - Other specified postprocedural states (ICD-10) History of heart artery stent ?Z95.5 - Presence of coronary angioplasty implant and graft (ICD-10) Hx of CABG ?Z95.1 - Presence of aortocoronary bypass graft (ICD-10) 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.2 - Presence of prosthetic heart valve (ICD-10) Family History Other Family history of colon cancer Family history of heart disease Family history of leukemia Family history of myocardial infarction Family history of stroke Social History Within the past year, how often did you have a drink containing alcohol: monthly or less Smoking status: Former smoker Non-prescribed substance use: denies use Previous occupational history: RETIRED Highest level of school completed/degree received: 10th grade Meds Home Medications and Allergies Home Medications ?Medication ?Instructions ?Recorded ?Confirmed ?Type aspirin 81 mg tablet,delayed 81 mg PO DAILY 05/12/23 05/22/23 History release (Adult Aspirin Regimen) atorvastatin 10 mg tablet 10 mg PO QDAY 05/12/23 05/22/23 History cholecalciferol (vitamin D3) 25 25 mcg PO DAILY 05/12/23 05/22/23 History mcg (1,000 unit) capsule citalopram 20 mg tablet 20 mg PO QDAY 05/12/23 05/22/23 History clopidogrel 75 mg tablet 75 mg PO QDAY 05/12/23 05/22/23 History finasteride 5 mg tablet 5 mg PO QDAY 05/12/23 05/22/23 History hydrochlorothiazide 12.5 mg capsule 12.5 mg PO QDAY 05/12/23 05/22/23 History melatonin 3 mg capsule 3 mg PO DAILY 05/12/23 05/22/23 History metoprolol succinate 25 mg 12.5 mg PO Q12H 05/12/23 05/22/23 History tablet,extended release 24 hr tamsulosin 0.4 mg capsule (Flomax) 0.4 mg PO DAILY 05/12/23 05/22/23 History Allergies Allergy/AdvReac Type Severity Reaction Status Date / Time No Known Drug Allergies Allergy Verified 05/12/23 09:13 Exam Constitutional Documenting provider has reviewed patient's vital signs: yes Common normals: no apparent distress, oriented x3, healthy appearing, alert and well nourished General appearance: cooperative HENMT Common normals: normocephalic, hearing grossly normal bilaterally and moist oral mucous membranes Head and scalp: normocephalic Eye Common normals: PERRL Pupil: PERRL Neck & C-Spine Common normals: full ROM General: normal visual inspection Chest Common normals: inspection of chest normal Respiratory Common normals: normal respiratory effort, no retractions and no use of accessory muscles Back & Pelvis Lumbar spine/lower back: pain with ROM, lumbar spinal tenderness and straight leg raise positive left Other: decreased sensation left L4,5,S1 strength 4/5 in LLE and 5/5 in RLE significantly increased low back pain with standing and walking that improves within minutes of sitting as well as with forward flexion Neuro Common normals: oriented x3 Sensorium/orientation: alert Psych Common normals: mental status grossly normal, thought process normal, cooperative, affect normal, speech normal and activity/motor behavior normal Speech: normal speech Thought process: normal thought process Results Additional Findings Additional findings: If on a controlled substance or opioids, I have checked an [place]ARRS report on this patient and there are no aberrancies noted in the prescribing history.??If on a controlled substance or opioid a drug screen was completed and reviewed within the last year, and if there has not been a drug screen completed we ordered one today to monitor higher risk, state monitored pain medication use. As part of providing excellent, safe, comprehensive care, the following was completed at our patient's visit: 1. A medication reconciliation and review to ensure accurate knowledge of current/active medications, including asking our patients to inform us about any [id number] medications or herbal remedies/nutritional supplements/alternative remedies. 2. A review to specifically ensure our patients have had annual screening for screening for depression, screening for tobacco use, and screening for unhealthy alcohol use. For concerning screenings had a discussion with the patient, provided patient education, and recommended follow-up with primary care provider when appropriate. If patient noted with a risk of falling, they received education on strength, gait, and balance training to prevent future risk of falling. Portions of this note may have been carried over from the previous visit and updated as appropriate. Please note this office utilizes paper charting in addition to the electronic medical record. A list of current medications, vitals, and PMH is available there as the clinical staff outside of myself do not have access to [email or web address] charting during the clinic day operations. As part of providing quality comprehensive care the current medications, vitals, and PMH were reviewed in the paper chart. Assessment and Plan Assessment and Plan (1) Lumbar stenosis with neurogenic claudication: Assessment and Plan: JANETTE 20% Plan 85 year old male with low back pain > 10 years unresponsive to > 6 weeks of HEP, heat, ice, tylenol, and cannot take NSAIDs. Pt not interested in NS intervention. We reviewed his lumbar xray and MRI, i reviewed with him his symptoms of lumbar stenosis with NC and mild facet mediated low back pain. At this time pt can continue tylenol and ASA prn, continue HEP as tolerated, continue heat PRN. will trial left L4-5 L5-S1 TFESI under fluoroscopy for lumbar stenosis with NC and f/u 2 weeks after injection.
--- OUTSIDE RECORDS SUMMARY | 2025-08-11 18:46 | XMS_ITS | CCD ---
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 Name Role Phone TIMBO BAIG Primary Care Physician DO Timbo Baig Primary Care Provider [phone] MD Jaylon Finnegan Attending Provider Niya Baker Unavailable Timbo Baig Unavailable JENNIFFER, DR IZQUIERDO Admitting Unavailable BALL, DR IZQUIERDO Attending Unavailable JENNIFFER, DR IZQUIERDO Primary Care Unavailable JENNIFFER, DR [...] Unavailable LOYA ., DR MCMAHON Consulting Unavailable VOSSBURG, DR IVY Jenkins Consulting Unavailable ANDERSON Ann [...] Provider Twohig, DO Bertha Pittman Attending Provider [phone] MD Abimael Cruz Referring Provider Ball, DO Izquierdo Primary Care Provider Twohig, DO Bertha Pittman Attending Provider MD Abimael Cruz Referring Provider Salome LOYA Attending Unavailable Salome LOYA Attending Unavailable Jenniffer GARCIA Timbo Primary Care Provider Jaylon Finnegan MD Attending Provider [phone] 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 Attending Provider Timbo Baig DO Primary Care Provider [phone] Timbo Baig DO Attending Provider Jaylon Finnegan MD Attending Provider [phone] Jaylon Finnegan Admitting Unavailabl e Kain, Jaylon Lepe Attending Unavailabl e [facility] Primary [facility] Unavailable Kain, Jaylon T Admitting Unavailabl e Kain, Jaylon Lepe Attending Unavailabl e [facility] Primary Care Unavailable Kain, Jaylon Lepe Admitting Unavailabl e Langenberg, Jaylon Lepe Attending Unavailabl e [facility] Primary Care Unavailable Twohig, Ling D Attending Unavailable [facility] Unavailable Twohig, Ling D Admitting Unavailable Twohig, Ling D Attending Unavailable Abimael Cruz Referring Unavai Timbo Guillen Primary Care Unavailable Twohig, Ling D Admitting Unavailable Twohig, Ling D Attending Unavailable [facility] Unavailable Twohig, Ling D Admitting Unavailable Niya Baker Admitting Unavailable Niya Baker Attending Unavailable [facility] Primary [facility] Unavailable Jenniffer GARCIA Timbo Primary Care Provider Timbo Baig DO Attending Provider [phone] Allergies Allergy Classification Reported Allergen(s) Allergy Type Date of Onset Reaction(s) Facility (1 source) patient allergy list reviewed by nurse or physicia Propensity to adverse reactions 9 Comment:Done Use It Better Other (1 source) No Known Medication Allergies; Translations: [No Known Medication Allergies] Propensity to adverse reactions (disorder) [facility] Repository Medications Current Medications Medication Drug [...] Daily, # 90 tab(s), Refills(s) 3, Pharmacy: [facility], 152, cm, 04/19/22 10:18:00 EDT, Height/Length [...] drug therapy Start: 09-20-2024 Potassium Chlo ride (Eti-Fhby-Rig M10) 10 mEq oral tablet, extended release [...] 3:28pm Start: 08-25-2023 take 1 capsule by [facility] once daily tamsulosin 0.4 mg Cap 0.4 mg = 1 cap(s), Oral, Daily, # 90 cap(s), Refills(s) 3, Pharmacy: [facility], 178, cm, 08/25/23 12:26:00 EDT, Height/Length Dosing, 90, kg, 08/25/23 12:26:00 EDT, Weight Dosing Start Date: 08/25/23 Status: Ordered take 1 capsule by [facility] every twenty-four hours torsemide 20 mg oral [...] Daily, # 90 cap(s), Refills(s) 3, Pharmacy: [facility], 178, cm, 08/25/23 12:26:00 EDT, Height/Length Dosing, 90, kg, 08/25/23 12:26:00 EDT, Weight Dosing Start Date: 08/25/23 Status: Ordered Start: 12-28-2021 take 1 capsule by mo [facility] once daily hydrochlorothiazide 12.5 mg Cap 12.5 mg = 1 cap(s), Oral, Daily, # 90 cap(s), Refills(s) 3, Pharmacy: [facility], 152, cm, 08/27/21 10:12:00 EDT, Height/Length [...] Coronary arteriosclerosis; Translations: [Atherosclerotic heart disease of [place] coronary artery without angina pectoris] Onset: 09-15-2018 [...] sources) H/O: high risk medication; Translations: [Other custodial (current) drug therapy] Episodic Other aftercare (5 sources) Long-term current use of drug therapy; Translations: [Other custodial (current) drug therapy] Episodic Other and unspecified [...] and due to atherosclerosis; Translations: [Atherosclerosis of [place] arteries of extremities with intermittent claudication, bilateral [...] Onset: 09-18-2018 Other aftercare (5 sources) Other custodial (current) drug therapy; Translations: [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 Copies to: Jaylon Finnegan [...] Finnegan MD,FACS,FSVS 05/12/2025 11:51 AM Dictation Location: [place] [address] Tech: Pam Sheehan Transcribed By: DANIEL 05/12/25 1151 Dictated By: Jaylon Finnegan MD 05/12/25 1151 Signed By: 05/12/25 1151 Normal [facility] US carotid doppler BIon 07-0 US carotid doppler BI [facility] [address] [place] [address] Ultrasound Report Signed Patient: Max Brady MR#: [id number] 11 : 1940 Acct:[id number] Age/Sex: 84 / M ADM Date: 05/12/25 Loc: [facility] Room: Type: [facility] Attending Dr: Jaylon Finnegan MD Ordering Provider: [...] Finnegan MD,FACS,FSVS 05/12/2025 11:52 AM Dictation Location: [place] [address] Tech: Merle Donaldson Transcribed By: DANIEL 05/12/25 1152 Dictated By: Jaylon Finnegan MD 05/12/25 1151 Signed By: 05/12/25 1152 Normal [facility] Basophils Auto (Bld) [#/Vol] on 03-25-2025 Basophils (Bld) [#/Vol] 0.0 10 3/uL 0.0-0.1 [facility] Basophils/100 WBC Auto (Bld) on 03-25-2025 Basophils/100 WBC (Bld) 0.5 % 0.2-2.0 [facility] Cholesterol in LDL Calc [Mas s/Vol]on 03-25-2025 Cholesterol in LDL [Mass/Vol] 33.6 mg/dL [facility] Comment on above: <100 mg/dl [id number] 0-129 mg/dl NEAR OR ABOVE [id number] mg/dl BORDERLINE [id number] mg/dl HIGH>190 mg/dl VERY HIGH Cholesterol in VLDL Calc [Ma ss/Vol]on 03-25-2025 Cholesterol in VLDL [Mass/Vol] 14.4 mg/dL [facility] Eosinophils/100 WBC Auto (Bl d)on 03-25-2025 Eosinophils/100 WBC (Bld) 7.7 % High 0.9-7.0 [facility] Erythrocyte distribution wid th Auto (RBC) [Ratio]on 03-25-2025 Erythrocyte distribution width (RBC) [Ratio] 14.4 % 11.0-15.0 [facility] Estimated glomerular filtrat ion rate (GFR) non- Americanon 03-25-2025 GFR/1.73 sq M.predicted among non-blacks MDRD (S/P/Bld) [Vol rate/Area] 51 mL/min/{1.73_m2} Low >=60 mL/min/1.73m 2 [facility] Globulin Calc (S) [Mass/Vol] on 03-25-2025 Globulin (S) [Mass/Vol] 3.3 g/dL [facility] Hematocrit Auto (Bld) [Volum e fraction]on 03-25-2025 Hematocrit (Bld) [Volume fraction] 41.9 % Low 42.0-54.0 [facility] Hemoglobin [Mass/volume] in Bloodon 03-25-2025 Hemoglobin (Bld) [Mass/Vol] 13.7 g/dL Low 14.0-18.0 [facility] Laboratory - Chemistry and C hemistry - challengeon 03-25-2025 Albumin [Mass/Vol] 3.5 g/dL 3.4-5.0 [facility] ALP [Catalytic activity/Vol] 70 U/L 46-116 [facility] ALT [Catalytic activity/Vol] 23 U/L 16-63 [facility] AST [Catalytic activity/Vol] 17 U/L 15-37 [facility] Bilirubin [Mass/Vol] 0.7 mg/dL 0.2-1.0 [facility] Calcium [Mass/Vol] 9.3 mg/dL 8.5-10.1 [facility] Chloride [Moles/Vol] 106 mmol/L 98-107 [facility] Cholesterol [Mass/Vol] 106 mg/dL <=200 [facility] Cholesterol in HDL [Mass/Vol] 58 mg/dL 40-60 [facility] Comment on above: > or =60 mg/dl - LOW CARDIOVASCULAR RISK<40 mg/dl - HIGH CARDIOVASCULAR RISK CO2 [Moles/Vol] 32.9 mmol/L High 21.0-32.0 [facility] Creatinine [Mass/Vol] 1.34 mg/dL High 0.70-1.30 [facility] Free T4 [Mass/Vol] 0.95 ng/dL 0.76-1.46 [facility] GFR/1.73 sq M.predicted MDRD (S/P/Bld) [Vol rate/Area] mL/min/{1.73_m2} >=60 mL/min/1.73m 2 [facility] Glucose [Mass/Vol] 108 mg/dL High 74-106 [facility] Potassium [Moles/Vol] 4.2 mmol/L 3.5-5.1 [facility] Protein [Mass/Vol] 6.8 g/dL 6.4-8.2 [facility] Sodium [Moles/Vol] 144 mmol/L 136-145 [facility] Triglyceride [Mass/Vol] 72 mg/dL <=150 [facility] TSH Qn 4.515 m[IU]/L High 0.358-3.740 [facility] Urea nitrogen [Mass/Vol] 20.0 mg/dL High 7.0-18.0 [facility] Urea nitrogen/Creatinine [Mass ratio] 14.9 mg/mg [facility] Laboratory - Hematology and Cell countson 03-25-2025 Immature granulocytes/100 WBC (Bld) 0.2 % 0.0-0.5 [facility] Leukocytes [#/volume] correc jose j for nucleated erythrocytes in Blood by Automated counon 03-25-2025 WBC corrected for nucl RBC Auto (Bld) [#/Vol] 5.8 10 3/uL 4.0-11.0 [facility] Lymphocytes Auto (Bld) [#/Vo l]on 03-25-2025 Lymphocytes (Bld) [#/Vol] 1.5 10 3/uL 1.2-3.8 [facility] Lymphocytes/100 WBC Auto (Bl d)on 03-25-2025 Lymphocytes/100 WBC (Bld) 25.3 % 20.5-60.0 [facility] MCH Auto (RBC) [Entitic mass ]on 03-25-2025 MCH (RBC) [Entitic mass] 30.6 pg 25.9-34.0 [facility] MCHC Auto (RBC) [Mass/Vol]on 03-25-2025 MCHC (RBC) [Mass/Vol] 32.7 g/dL 29.9-35.2 [facility] MCV Auto (RBC) [Entitic vol] on 03-25-2025 MCV (RBC) [Entitic vol] 93.7 fL 80.0-94.0 [facility] Monocytes Auto (Bld) [#/Vol] on 03-25-2025 Monocytes (Bld) [#/Vol] 0.5 10 3/uL 0.3-0.8 [facility] Monocytes/100 WBC Auto (Bld) on 03-25-2025 Monocytes/100 WBC (Bld) 9.3 % 1.7-12.0 [facility] Neutrophils Auto (Bld) [#/Vo l]on 03-25-2025 Neutrophils (Bld) [#/Vol] 3.3 10 3/uL 1.4-6.5 [facility] Neutrophils/100 WBC Auto (Bl d)on 03-25-2025 Neutrophils/100 WBC (Bld) 57.0 % 43.0-75.0 [facility] No Panel Informationon 05-16 -2025 Eosinophils # (Auto) 0.5 10 3/uL 0.0-0.7 [facility] Immature Granulocyte # (Auto) 0.01 10 3/uL 0.00-0.03 [facility] Platelet mean volume Auto (B ld) [Entitic vol]on 03-25-2025 Platelet mean volume (Bld) [Entitic vol] 11.5 fL 9.5-13.5 [facility] Platelets Auto (Bld) [#/Vol] on 03-25-2025 Platelets (Bld) [#/Vol] 197 10 3/uL 150-450 [facility] RBC Auto (Bld) [#/Vol]on RBC (Bld) [#/Vol] 4.47 10 6/uL Low 4.70-6.10 [facility] Serum or plasma albumin/glob ulin mass ratioon 03-25-2025 Albumin/Globulin [Mass ratio] 1.1 {ratio} [facility] Serum or plasma anion gap de terminationon 03-25-2025 Anion gap [Moles/Vol] 9.3 mmol/L [facility] Serum or plasma total choles terol/high density lipoprotein (HDL) cholesterol mass dejah 03-25-2025 Cholesterol.total/Cholest jose elias in HDL [Mass ratio] 1.8 {ratio} [facility] Comment on above: 3.3 - 4.4 LOW RISK4. 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 Copies to: Niya Baker APRN ADDENDUM 1 The right lower extremity exhibited severe disease and critical limb ischemia with ambulation. The right lower extremity CHNIG dropped to 0.32 during the exercise study. This is considered severe ischemia. Impression dictated by: Jaylon Finnegan MD12/15/2024 5:07 PM Dictation Location: [place] [address] Addendum Dictated By: Jaylon Finnegan MD Addendum [...] Jaylon Finnegan MD12/08/2024 11:26 AM Dictation Location: [place] [address] Tech: Sugey Diaz Transcribed By: DANIEL 12/08/24 1126 Dictated By: Jaylon Finnegan MD 12/08/24 112 Signed By: 12/08/24 1126 Normal [facility] US UNI ankle/arm indiceson 1 12-20-2023 US UNI ankle/arm indices [facility] [place] [address] Ultrasound Report Signed Patient: Max Brady MR#: [id number] 11 : 1940 Acct:[id number] Age/Sex: 84 / M ADM Date: 10/18/24 Loc: Room: Type: [facility] Attending Dr: Jaylon Finnegan MD Ordering [...] Ricky Stephens M.D.10/19/2024 10:37 AM Dictation Location: [place] [address] Tech: Pam Richardsguzman Transcribed By: DANIEL 10/19/24 1037 Dictated By: Ricky Stephens MD 10/19/24 1035 Signed By: 10/19/24 1037 Normal [facility] Blood Urea Nitrogenon 2023 Urea nitrogen [Mass/Vol] 21 mg/dL Normal 06-03 [facility] Comment on above: Performed By: #### C REAT, BUN #### [facility] [address] [place] [address] [place] Creatinineon 10-04-2024 Creatinine [Mass/Vol] 1.40 mg/dL High 0.70-1.30 [facility] Comment on above: Performed By: #### C REAT, BUN #### [facility] [address] [place] [address] [place] Creatinine Clr Calc Pharmacy 45.56 Normal [facility] Comment on above: Result Comment: PERF ORMED BY: [place] [address] PATHOLOGIST [employer] DK JONES M.D. Performed By: #### C REAT, BUN #### [address] Estimated GFR 50.182 mL/Min Normal [facility] Comment on above: Performed By: #### C REAT, BUN #### [address] Creatinine [Mass/volume] in Serum or PlasmaOrdered By: Jaylon Finnegan on 10-04-2024 Creatinine [Mass/Vol] Creatinine [Mass/volume] in Serum or Plasma High 0.70-1.30 [facility] No Panel InformationOrdered By: Jaylon Finnegan on 10-04-2024 Estimated GFR (CKD-EPI) 50.182 mL/Min [facility] Creatinine Clearance (Chem 45.56 [facility] US UNI ankle/arm indiceson 1 12-04-2023 US UNI ankle/arm indices [facility] [place] [address] [place] [address] Ultrasound Report Signed Patient: Max Brady MR#: [id number] 11 : 1940 Acct:[id number] Age/Sex: 84 / M ADM Date: 10/04/24 Loc: Room: Type: [facility] Attending Dr: Jaylon Finnegan MD Ordering Provider: Jaylon Finnegan MD Date of Service: 10/04/24 US/US UNI ankle/arm indices: New postprocedure study for the left leg only please. 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 [...] Jaylon Finnegan MD10/04/2024 3:03 PM Dictation Location: [facility] Tech: Mercedes Bella Transcribed By: [facility] 10/04/24 1503 Dictated By: Jaylon Finnegan MD 10/04/24 1502 Signed By: 10/04/24 1503 Normal [facility] Urea nitrogen [Mass/volume] in Serum or PlasmaOrdered By: Jaylon Finnegan on 10-04-2024 Urea nitrogen [Mass/Vol] Urea nitrogen [Mass/volume] in Serum or Plasma 06-03 [facility] Urology Office/Clinic Noteon 09-20-2024 Urology Office/Clinic Note [...] Jaramillo, URL [facility] [address], [place] [address]- [phone] Additional Instructions: 1 yr w/ KUB Patient Education Kidney Stones, Syxm-qr-Esqg I, Babita Andrade, personally scribed for Dr. Loya on 09/20/2024 12:14:24. . Documentation recorded by the scribe, Babita Andrade, accurately reflects the services(s) I performed and decisions made by me. Authenticated by Dr. Loya on 09/20/2024 12:15:52. Problem List/Past Medical History Ongoing BPH with urinary obstruction CAD (coronary artery disease) Former smoker GERD (gastroesophageal reflux disease) Hx of custodial use of blood thinners Impotence Kidney stone [...] Oral, BID (more content not included)... Normal [facility] Comment on above: Result Comment: Elec tronically Signed By: REINIER HUSAIN, Salome Jaramillo\madeleine\Date and Time Signed: 09/20/24 12:15 EST\.br\Electronically Co-Signed By: Babita Andrade\.franky\Date and Time Co-Signed: 09/20/24 12:14 EST US art pvr/post Yadi 024 US art pvr/post [facility] [place] [address] [place] [address] Ultrasound Report Signed Patient: Max Brady MR#: [id number] 11 : 1940 Acct:[id number] Age/Sex: 84 / M ADM Date: 08/26/24 Loc: Room: Type: [facility] Attending Dr: Bretha Hutchins DO Ordering Provider: Bertha Hutchins DO Date of Service: 08/26/24 US/US art pvr/post LE: I70.213 - Atherosclerosis of [place] arteries of [facility]... Copies to: Bertha Hutchins DO LOWER [...] Jaylon Finnegan MD08/27/2024 9:25 AM Dictation Location: [place] [address] Tech: Ashley Gonzalez Transcribed By: DANIEL 08/27/24924 Dictated By: Jaylon Finnegan MD 08/27/24921 Signed By: 08/27/24924 Normal [facility] NM charito perf SPECT rest stron 08-25-2024 NM charito perf SPECT rest str [facility] [address] [address] Nuclear Medicine Report Signed Patient: Max Brady MR#: [id number] 11 : 1940 Acct:[id number] Age/Sex: 84 / M ADM Date: 08/26/24 Loc: Room: Type: [facility] Attending Dr: Bertha Hutchins DO [...] 1744 Signed By: 08/30/24 1220 Normal [facility] STR cardiac stress/lexiscano n 08-25-2024 STR cardiac stress/lexiscan [facility] [address] [address] Cardiac Stress Test Signed Patient: Max Brady MR#: [id number] 11 : 1940 Acct:[id number] Age/Sex: 84 / M ADM Date: 08/26/24 Loc: UL Room: Type: [facility] Attending Dr: Bertha Hutchins DO Copies to: DO Moni Worthington MD Ordering Provider: Bertha Hutchins DO Date of Service: 08/25/24 STR/STR cardiac stress/lexiscan: I25.10 - Atherosclerotic heart disease of [place] coronary... REFERRING PHYSICIAN: Bertha Hutchins DO REASON [...] 1721 Signed By: 08/30/24 1220 Normal [facility] FPG ECG *CARDIOLOGY ONLY*on 08-16-2024 FPG ECG *CARDIOLOGY ONLY* [facility] [place] [address] Electrocardiograph Report Signed Patient: Max Brady MR#: [id number] 11 : 1940 Acct:[id number] Age/Sex: 84 / M ADM Date: 08/16/24 Loc: [facility]ARDIO Room: Type: [facility] Attending Dr: Bertha Hutchins DO Ordering Provider: Bertha Hutchins DO Date of Service: 08/16/2406/02/1415 ECG/FPG ECG *CARDIOLOGY ONLY*: I25.10 - Atherosclerotic heart disease of [place] coronary... Copies to: Test Reason : Blood Pressure : */* mmHG Vent. Rate : 78 BPM Atrial Rate : 78 BPM P-R Int : 232 ms QRS Dur : 84 ms QT Int : 404 ms P-R-T Axes : 43 27 20 degrees QTcB Int : 460 ms Sinus rhythm with 1st degree AV block Confirmed by Ila Thomas ([id number]) on 08/17/2024 10:25:55 AM Referred By: Electronically Signed By: Ila Thomas Transcribed By: MUS Signed By Ila Thomas MD 4 1025 Normal [facility] Estimated glomerular filtrat ion rate (GFR) non- Americanon 04-29-2024 GFR/1.73 sq M.predicted among non-blacks MDRD (S/P/Bld) [Vol rate/Area] 49 mL/min/{1.73_m2} Low >=60 [facility] Laboratory - Chemistry and C hemistry - challengeon 04-29-2024 Calcium [Mass/Vol] 9.2 mg/dL 8.5-10.1 [facility] Chloride [Moles/Vol] 99 mmol/L 98-107 [facility] CO2 [Moles/Vol] 31.3 mmol/L 21.0-32.0 [facility] Creatinine [Mass/Vol] 1.39 mg/dL High 0.70-1.30 [facility] GFR/1.73 sq M.predicted MDRD (S/P/Bld) [Vol rate/Area] 59 mL/min/{1.73_m2} Low >=60 [facility] Glucose [Mass/Vol] 94 mg/dL 74-106 [facility] Natriuretic peptide B (Bld) [Mass/Vol] 98.0 pg/mL <=1800.0 [facility] Potassium [Moles/Vol] 3.0 mmol/L Low 3.5-5.1 [facility] Sodium [Moles/Vol] 140 mmol/L 136-145 [facility] Urea nitrogen [Mass/Vol] 30.0 mg/dL High 7.0-18.0 [facility] Urea nitrogen/Creatinine [Mass ratio] 21.6 mg/mg [facility] Serum or plasma anion gap de terminationon 04-29-2024 Anion gap [Moles/Vol] 12.7 mmol/L [facility] Laboratory - Chemistry and C hemistry - challengeon 04-17-2024 Free T4 [Mass/Vol] 0.79 ng/dL 0.76-1.46 [facility] TSH Qn 5.269 m[IU]/L High 0.358-3.740 [facility] No Panel Informationon 04-17 Total Triiodothyronine 97 ng/dL 71-180 [facility] Comment on above: Performed at: [address] [id number] Director: Nadir Chavez PhD, Phone: [phone] Basophils Auto (Bld) [#/Vol] on 04-07-2024 Basophils (Bld) [#/Vol] 0.0 10 3/uL 0.0-0.1 [facility] Basophils/100 WBC Auto (Bld) on 04-07-2024 Basophils/100 WBC (Bld) 0.6 % 0.2-2.0 [facility] Cholesterol in LDL Calc [Mas s/Vol]on 04-07-2024 Cholesterol in LDL [Mass/Vol] 67.2 mg/dL [facility] Comment on above: <100 mg/dl [id number] 0-129 mg/dl NEAR OR ABOVE UMKBOOV221-997 mg/dl BORDERLINE UTVQ144-093 mg/dl HIGH>190 mg/dl VERY HIGH Cholesterol in VLDL Calc [Ma ss/Vol]on 04-07-2024 Cholesterol in VLDL [Mass/Vol] 23.8 mg/dL [facility] Eosinophils/100 WBC Auto (Bl d)on 04-07-2024 Eosinophils/100 WBC (Bld) 9.8 % High 0.9-7.0 [facility] Erythrocyte distribution wid th Auto (RBC) [Ratio]on 04-07-2024 Erythrocyte distribution width (RBC) [Ratio] 14.0 % 11.0-15.0 [facility] Estimated glomerular filtrat ion rate (GFR) non- Americanon 04-07-2024 GFR/1.73 sq M.predicted among non-blacks MDRD (S/P/Bld) [Vol rate/Area] 55 mL/min/{1.73_m2} Low >=60 [facility] Globulin Calc (S) [Mass/Vol] on 04-07-2024 Globulin (S) [Mass/Vol] 3.8 g/dL [facility] Hematocrit Auto (Bld) [Volum e fraction]on 04-07-2024 Hematocrit (Bld) [Volume fraction] 44.7 % 42.0-54.0 [facility] Hemoglobin [Mass/volume] in Bloodon 04-07-2024 Hemoglobin (Bld) [Mass/Vol] 14.3 g/dL 14.0-18.0 [facility] Laboratory - Chemistry and C hemistry - challengeon 04-07-2024 Albumin [Mass/Vol] 3.4 g/dL 3.4-5.0 [facility] ALP [Catalytic activity/Vol] 67 U/L 46-116 [facility] ALT [Catalytic activity/Vol] 22 U/L 16-63 [facility] AST [Catalytic activity/Vol] 20 U/L 15-37 [facility] Bilirubin [Mass/Vol] 1.0 mg/dL 0.2-1.0 [facility] Calcium [Mass/Vol] 8.9 mg/dL 8.5-10.1 [facility] Chloride [Moles/Vol] 103 mmol/L 98-107 [facility] Cholesterol [Mass/Vol] 150 mg/dL <=200 [facility] Cholesterol in HDL [Mass/Vol] 59 mg/dL 40-60 [facility] Comment on above: > or =60 mg/dl - LOW CARDIOVASCULAR RISK<40 mg/dl - HIGH CARDIOVASCULAR RISK CO2 [Moles/Vol] 29.8 mmol/L 21.0-32.0 [facility] Creatinine [Mass/Vol] 1.26 mg/dL 0.70-1.30 [facility] GFR/1.73 sq M.predicted MDRD (S/P/Bld) [Vol rate/Area] mL/min/{1.73_m2} >=60 [facility] Glucose [Mass/Vol] 109 mg/dL High 74-106 [facility] Natriuretic peptide B (Bld) [Mass/Vol] 104.0 pg/mL <=1800.0 [facility] Potassium [Moles/Vol] 3.4 mmol/L Low 3.5-5.1 [facility] Protein [Mass/Vol] 7.2 g/dL 6.4-8.2 [facility] Sodium [Moles/Vol] 140 mmol/L 136-145 [facility] Triglyceride [Mass/Vol] 119 mg/dL <=150 [facility] TSH Qn 8.383 m[IU]/L High 0.358-3.740 [facility] Urea nitrogen [Mass/Vol] 21.0 mg/dL High 7.0-18.0 [facility] Urea nitrogen/Creatinine [Mass ratio] 16.7 mg/mg [facility] Laboratory - Hematology and Cell countson 04-07-2024 Immature granulocytes/100 WBC (Bld) 0.4 % 0.0-0.5 [facility] Leukocytes [#/volume] correc jose j for nucleated erythrocytes in Blood by Automated counon 04-07-2024 WBC corrected for nucl RBC Auto (Bld) [#/Vol] 5.2 10 3/uL 4.0-11.0 [facility] Lymphocytes Auto (Bld) [#/Vo l]on 04-07-2024 Lymphocytes (Bld) [#/Vol] 1.5 10 3/uL 1.2-3.8 [facility] Lymphocytes/100 WBC Auto (Bl d)on 04-07-2024 Lymphocytes/100 WBC (Bld) 28.6 % 20.5-60.0 [facility] MCH Auto (RBC) [Entitic mass ]on 04-07-2024 MCH (RBC) [Entitic mass] 30.2 pg 25.9-34.0 [facility] MCHC Auto (RBC) [Mass/Vol]on 04-07-2024 MCHC (RBC) [Mass/Vol] 32.0 g/dL 29.9-35.2 [facility] MCV Auto (RBC) [Entitic vol] on 04-07-2024 MCV (RBC) [Entitic vol] 94.5 fL High 80.0-94.0 [facility] Monocytes Auto (Bld) [#/Vol] on 04-07-2024 Monocytes (Bld) [#/Vol] 0.6 10 3/uL 0.3-0.8 [facility] Monocytes/100 WBC Auto (Bld) on 04-07-2024 Monocytes/100 WBC (Bld) 11.7 % 1.7-12.0 [facility] Neutrophils Auto (Bld) [#/Vo l]on 04-07-2024 Neutrophils (Bld) [#/Vol] 2.6 10 3/uL 1.4-6.5 [facility] Neutrophils/100 WBC Auto (Bl d)on 04-07-2024 Neutrophils/100 WBC (Bld) 48.9 % 43.0-75.0 [facility] No Panel Informationon 04-07 Eosinophils # (Auto) 0.5 10 3/uL 0.0-0.7 [facility] Immature Granulocyte # (Auto) 0.02 10 3/uL 0.00-0.03 [facility] Platelet mean volume Auto (B ld) [Entitic vol]on 04-07-2024 Platelet mean volume (Bld) [Entitic vol] 11.2 fL 9.5-13.5 [facility] Platelets Auto (Bld) [#/Vol] on 04-07-2024 Platelets (Bld) [#/Vol] 196 10 3/uL 150-450 [facility] RBC Auto (Bld) [#/Vol]on RBC (Bld) [#/Vol] 4.73 10 6/uL 4.70-6.10 [facility] Serum or plasma albumin/glob ulin mass ratioon 04-07-2024 Albumin/Globulin [Mass ratio] 0.9 {ratio} [facility] Serum or plasma anion gap de terminationon 04-07-2024 Anion gap [Moles/Vol] 10.6 mmol/L [facility] Serum or plasma total choles terol/high density lipoprotein (HDL) cholesterol mass dejah 04-07-2024 Cholesterol.total/Cholest jose elias in HDL [Mass ratio] 2.5 {ratio} [facility] Comment on above: 3.3 - 4.4 [...] potassium with it. *Follow-up with vascular in [place] for your leg weakness and pain Normal [facility] Office Visiton 01-15-2024 Follow-up visit [id number] Max Brady Huber 1940 M Date Provider Department Center 01/15/2024 TITA STEWART Family History Problem Relation Age of Onset No Known Problems Mother No Known Problems Father Family Status - Relation Status Age at Mother Father Level of Service:49331 CO OFFICE/OUTPATIENT ESTABLISHED MOD MDM 30 MIN Reason for Visit and Comments: Coronary Artery Disease [187] Congestive Heart Failure [127] Hypertension [337340] Hyperlipidemia [182] Normal [facility] 36on 01-05-2024 36 Regarding labs from 12/26/2023: Tita Rivera, SANG Franco MA Please let him know his labs show his kidney function is stable. Continue current meds. Thanks LM on patient's VM. Normal [facility] Estimated glomerular filtrat ion rate (GFR) non- Americanon 12-26-2023 GFR/1.73 sq M.predicted among non-blacks MDRD (S/P/Bld) [Vol rate/Area] 58 mL/min/{1.73_m2} >=60 [facility] Laboratory - Chemistry and C hemistry - challengeon 12-26-2023 Calcium [Mass/Vol] 9.3 mg/dL 8.5-10.1 [facility] Chloride [Moles/Vol] 101 mmol/L 98-107 [facility] CO2 [Moles/Vol] 28.4 mmol/L 21.0-32.0 [facility] Creatinine [Mass/Vol] 1.21 mg/dL 0.70-1.30 [facility] GFR/1.73 sq M.predicted MDRD (S/P/Bld) [Vol rate/Area] mL/min/{1.73_m2} >=60 [facility] Glucose [Mass/Vol] 117 mg/dL 74-106 [facility] Potassium [Moles/Vol] 3.9 mmol/L 3.5-5.1 [facility] Sodium [Moles/Vol] 138 mmol/L 136-145 [facility] Urea nitrogen [Mass/Vol] 19.0 mg/dL 7.0-18.0 [facility] Urea nitrogen/Creatinine [Mass ratio] 15.7 mg/mg [facility] Serum or plasma anion gap de terminationon 12-26-2023 Anion gap [Moles/Vol] 12.5 mmol/L [facility] 37on 12-17-2023 37 *Start taking lasix 40mg daily along with potassium supplements. *Have labs done around 12/26/2023. *Monitor your weight daily, first thing in the morning after you use the bathroom and before you eat breakfast. *Try to not drink more than 2000ml of fluids a day *Limit sodium/salt intake Normal [facility] Office Visiton 12-17-2023 Follow-up visit [id number] Max Brady 1940 M Date Provider Department Center 12/17/2023 TITA STEWART [facility] Family History Problem Relation Age of Onset No Known Problems Mother No Known Problems Father Family Status - Relation Status Age at Mother Father Level of Service:28325 CO OFFICE/OUTPATIENT ESTABLISHED MOD MDM 30 MIN Normal [facility] Laboratory - Microbiology an d Antimicrobial susceptibilityOrdered By: Aury Ann on 04-12-2023 S. pyogenes Ag IA Ql (Unsp spec) [facility] No Panel InformationOrdered By: Aury Ann on 04-12-2023 Flu B [facility] CBC AUTO DIFFon 09-25-2022 BASO # 0.0 103/ul Normal 0.0-0.1 [facility] Comment on above: Performed By: #### C BC #### [facility] [address] [address] [address] Giacomo Mace Basophils/100 WBC (Bld) 0.5 % Normal 0.2-2.0 [facility] Comment on above: Performed By: #### C BC #### [facility] [address] [place] [address] Dr. Giacomo Mace EO # 0.4 103/ul Normal 0.0-0.7 [facility] Comment on above: Performed By: #### C BC #### [facility] [address] [place] [address] Dr. Giacomo Mace Eosinophils/100 WBC (Bld) 7.0 % Normal 0.9-7.0 [facility] Comment on above: Performed By: #### C BC #### [facility] [address] [place] [address] Dr. Giacomo Mace Erythrocyte distribution width (RBC) [Ratio] 14.6 % Normal 11.0-15.0 [facility] Comment on above: Performed By: #### C BC #### [facility] [address] [place] [address] Dr. Giacomo Mace Hematocrit (Bld) [Volume fraction] 46.9 % Normal 42.0-54.0 [facility] Comment on above: Performed By: #### C BC #### [facility] [address] [place] [address] Dr. Giacomo Mace Hemoglobin (Bld) [Mass/Vol] 15.1 g/dL Normal 14.0-18.0 [facility] Comment on above: Performed By: #### C BC #### [facility] [address] [place] [address] Dr. Giacomo Mace IG # 0.02 10e3/ul Normal 0.00-0.03 [facility] Comment on above: Performed By: #### C BC #### [facility] [address] [place] [address] Dr. Giacomo Mace IG % 0.4 % Normal 0.0-0.5 [facility] Comment on above: Performed By: #### C BC #### [facility] [address] [place] [address] Dr. Giacomo Mace LYMPH # 1.4 103/ul Normal 1.2-3.8 [facility] Comment on above: Performed By: #### C BC #### [facility] [address] [place] [address] Dr. Giacomo Mace Lymphocytes/100 WBC (Bld) 25.3 % Normal 20.5-60.0 [facility] Comment on above: Performed By: #### C BC #### [facility] [address] [place] [address] Dr. Giacomo Mace MANUAL DIFF REQ NO Normal [facility] Comment on above: Performed By: #### C BC #### [facility] [address] [place] [address] Dr. Giacomo Mace MCH (RBC) [Entitic mass] 29.6 pg Normal 25.9-34.0 [facility] Comment on above: Performed By: #### C BC #### [facility] [address] [place] [address] Dr. Giacomo Mace MCHC (RBC) [Mass/Vol] 32.2 g/dL Normal 29.9-35.2 [facility] Comment on above: Performed By: #### C BC #### [facility] [address] [place] [address] Dr. Giacomo Mace MCV (RBC) [Entitic vol] 92.0 fL Normal 80.0-94.0 [facility] Comment on above: Performed By: #### C BC #### [facility] [address] [place] [address] Dr. Giacomo Mace MONO # 0.6 103/ul Normal 0.3-0.8 [facility] Comment on above: Performed By: #### C BC #### [facility] [address] [place] [address] Dr. Giacomo Mace Monocytes/100 WBC (Bld) 10.4 % Normal 1.7-12.0 [facility] Comment on above: Performed By: #### C BC #### [facility] [address] [place] [address] Dr. Giacomo Mace NEUT # 3.2 103/ul Normal 1.4-6.5 [facility] Comment on above: Performed By: #### C BC #### [facility] [address] [place] [address] Dr. Giacomo Mace Neutrophils/100 WBC (Bld) 56.4 % Normal 43.0-75.0 [facility] Comment on above: Performed By: #### C BC #### [facility] [address] [place] [address] Dr. Giacomo Mace Platelet mean volume (Bld) [Entitic vol] 10.5 fL Normal 9.5-13.5 [facility] Comment on above: Performed By: #### C BC #### [facility] [address] [place] [address] Dr. Giacomo Mace PLT 227 103/ul Normal 150-450 [facility] Comment on above: Performed By: #### C BC #### [facility] [address] [place] [address] Dr. Giacomo Mace RBC 5.10 106/ul Normal 4.70-6.10 [facility] Comment on above: Performed By: #### C BC #### [facility] [address] [place] [address] Dr. Giacomo Mace WBC 5.7 103/ul Normal 4.0-11.0 [facility] Comment on above: Performed By: #### C BC #### [facility] [address] [place] [address] Dr. Giacomo Mace LIPID PROFILEon 09-25-2022 CHOL-HDL RATIO NORM SEE BELOW Normal [facility] Comment on above: Result Comment: 3.3 - 4.4 LOW RISK 4.4 - 7.1 AVERAGE RISK 7.1 - 11.0 MODERATE RISK >11.0 HIGH RISK Performed By: #### B MP, LIPID #### [facility] [address] [place] [address] Dr. Giacomo Mace Cholesterol [Mass/Vol] 219 mg/dL Critically high <=200 [facility] Comment on above: Performed By: #### B MP, LIPID #### [facility] [address] [address] [address] Giacomo Mace Cholesterol in HDL [Mass/Vol] 61 mg/dL Critically high 40-60 [facility] Comment on above: Performed By: #### B MP, LIPID #### [facility] [address] [address] [address] Giacomo Mace Cholesterol in LDL [Mass/Vol] 136.4 mg/dL Normal [facility] Comment on above: Performed By: #### B MP, LIPID #### [facility] [address] [address] [address] Giacomo Mace Cholesterol.total/Cholest jose elias in HDL [Mass ratio] 3.6 {ratio} Normal [facility] Comment on above: Performed By: #### B MP, LIPID #### [facility] [address] [address] [address] Giacomo Mace HDL NORMAL > or = 60 mg/dl - LOW CARDIOVASCULAR RISK <40 mg/dl - HIGH CARDIOVASCULAR RISK Normal [facility] Comment on above: Performed By: #### B MP, LIPID #### [facility] [address] [address] [address] Giacomo Mace LDL CALC NORMAL SEE BELOW Normal [facility] Comment on above: Result Comment: <100 mg/dl OPTIMAL 100 - 129 mg/dl NEAR OR ABOVE OPTIMAL 130 - 159 mg/dl BORDERLINE HIGH 160 - 189 mg/dl HIGH >190 mg/dl VERY HIGH Performed By: #### B MP, LIPID #### [facility] [address] [address] [address] Giacomo Mace Triglyceride [Mass/Vol] 108 mg/dL Normal <=150 [facility] Comment on above: Performed By: #### B MP, LIPID #### [facility] [address] [address] [address] Giacomo Mace VLDL CALC 21.6 mg/dL Normal [facility] Comment on above: Performed By: #### B MP, LIPID #### [facility] [address] [address] [address] Giacomo Mace PROF CHEM 8 (BAS METB)on Anion gap [Moles/Vol] 9.6 mmol/L Normal [facility] Comment on above: Performed By: #### B MP, LIPID #### [facility] [address] [place] [address] Dr. Giacomo Mace Calcium [Mass/Vol] 9.3 mg/dL Normal 8.5-10.1 [facility] Comment on above: Performed By: #### B MP, LIPID #### [facility] [address] [address] [address] Giacomo Mace Chloride [Moles/Vol] 104 mmol/L Normal 98-107 [facility] Comment on above: Performed By: #### B MP, LIPID #### [facility] [address] [place] [address] Dr. Giacomo Mace CO2 [Moles/Vol] 27.8 mmol/L Normal 21.0-32.0 [facility] Comment on above: Performed By: #### B MP, LIPID #### [facility] [address] [place] [address] Dr. Giacomo Mace Creatinine [Mass/Vol] 1.08 mg/dL Normal 0.70-1.30 [facility] Comment on above: Performed By: #### B MP, LIPID #### [facility] [address] [place] [address] Dr. Giacomo Mace EGFR-AF FIJIAN >60 Normal >=60 [facility] Comment on above: Performed By: #### B MP, LIPID #### [facility] [address] [place] [address] Dr. Giacomo Mace EGFR-NON AF FIJIAN >60 Normal >=60 [facility] Comment on above: Performed By: #### B MP, LIPID #### [facility] [address] [place] [address] Dr. Giacomo Mace Glucose [Mass/Vol] 111 mg/dL Critically high 74-106 [facility] Comment on above: Performed By: #### B MP, LIPID #### [facility] [address] [place] [address] Dr. Giacomo Mace Potassium [Moles/Vol] 4.4 mmol/L Normal 3.5-5.1 [facility] Comment on above: Performed By: #### B MP, LIPID #### [facility] [address] [address] [address] Giacomo Mace Sodium [Moles/Vol] 137 mmol/L Normal 136-145 [facility] Comment on above: Performed By: #### B MP, LIPID #### [facility] [address] [address] [address] Giacomo Mace Urea nitrogen [Mass/Vol] 27.0 mg/dL Critically high 7.0-18 .0 [facility] Comment on above: Performed By: #### B MP, LIPID #### [facility] [address] [address] [address] Giacomo Mace Urea nitrogen/Creatinine [Mass ratio] 25.0 mg/mg Normal [facility] Comment on above: Performed By: #### B MP, LIPID #### [facility] [address] [address] [address] Giacomo Mace ECHOCARDIO M/2D COMPLETEon 0 07-09-2022 ECHOCARDIO M/2D COMPLETE Patient: MAX BRADY Exam Date: 07/09/2022 : 1940 Gender:M Ordering : TITA RIVERA [facility] Admission #: [id number] Family : DR TIMBO BAIG D.O. Order #: [id number] CLICK HERE TO VIEW EXAM ECHOCARDIOGRAM REPORT [...] Davis M.D. on 07/10/2022 at 14:46 Normal [facility] CPKon 04-27-2022 CK [Catalytic activity/Vol] 96 U/L Normal 39-308 [facility] Comment on above: Performed By: #### C RP, CK #### [facility] [address] [place] [address] Dr. Giacomo Mace CRPon 04-27-2022 CRP [Mass/Vol] mg/L Normal <=1.0 [facility] Comment on above: Performed By: #### C RP, CK #### [facility] [address] [address] [address] Giacomo Mace ELECTROLYTESon 04-18-2022 Anion gap [Moles/Vol] 11.8 mmol/L Normal [facility] Comment on above: Performed By: #### E LEC #### [facility] [address] [address] [address] Giacomo Mace Chloride [Moles/Vol] 104 mmol/L Normal 98-107 [facility] Comment on above: Performed By: #### E LEC #### [facility] [address] [address] [address] Giacomo Mace CO2 [Moles/Vol] 27.5 mmol/L Normal 21.0-32.0 [facility] Comment on above: Performed By: #### E LEC #### [facility] [address] [place] [address] Dr. Giacomo Mace Potassium [Moles/Vol] 4.3 mmol/L Normal 3.5-5.1 [facility] Comment on above: Performed By: #### E LEC #### [facility] [address] [place] [address] Dr. Giacomo Mace Sodium [Moles/Vol] 139 mmol/L Normal 136-145 [facility] Comment on above: Performed By: #### E LEC #### [facility] [address] [place] [address] Dr. Giacomo Mace XR KUB 1 VIEWon [...] by: IVY DOMINGUEZ Date: 2022-04-18 08:04 Normal [facility] Vital Signs Date Time Vital Sign Value Performing Clinician Facility 07-29-2025 10:06-0400 Body height 177.8 cm Timbo Ball DO Work Phone: [facility] 07-29-2025 10:06-0400 Body mass index (BMI) [Ratio] 27.4 kg/m2 Timbo Ball DO Work Phone: [facility] 07-29-2025 10:06-0400 Body weight 86.8 kg Timbo Ball DO Work Phone: [facility] 07-29-2025 10:06-0400 Diastolic blood pressure 67 mm[Hg] Timbo Ball DO Work Phone: [facility] 07-29-2025 10:06-0400 Heart rate 72 /min Timbo Ball DO Work Phone: [facility] 07-29-2025 10:06-0400 Respiratory rate 12 /min Timbo Ball DO Work Phone: [facility] 07-29-2025 10:06-0400 Systolic blood pressure 122 mm[Hg] Timbo Ball DO Work Phone: [facility] 05-12-2025 11:18-0400 Diastolic blood pressure 68 mm[Hg] Timbo Ball DO Work Phone: [facility] 05-12-2025 11:18-0400 Systolic blood pressure 90 mm[Hg] Timbo Ball DO Work Phone: [facility] 05-12-2025 11:07-0400 Body height 177.8 cm Timbo Ball DO Work Phone: [facility] 05-12-2025 11:07-0400 Body mass index (BMI) [Ratio] 27.5 kg/m2 Timbo Ball DO Work Phone: [facility] 05-12-2025 11:07-0400 Body temperature 98.1 [degF] Timbo Ball DO Work Phone: [facility] 05-12-2025 11:07-0400 Body weight 87.08 kg Timbo Ball DO Work Phone: [facility] 05-12-2025 11:07-0400 Heart rate 51 /min Timbo Ball DO Work Phone: [facility] 05-12-2025 11:07-0400 SaO2% (BldA) [Mass fraction] 99 % Timbo Ball DO Work Phone: [facility] 03-18-2025 10:15-0400 Body height 177.8 cm Timbo Ball DO Work Phone: [facility] 03-18-2025 10:15-0400 Body mass index (BMI) [Ratio] 27.6 kg/m2 Timbo Ball DO Work Phone: [facility] 03-18-2025 [id number]:15040 Body weight 87.14 kg Timbo Ball DO Work Phone: [facility] 03-18-2025 10:15-0400 Diastolic blood pressure 66 mm[Hg] Timbo Ball DO Work Phone: [facility] 03-18-2025 10:15-0400 Heart rate 76 /min Timbo Ball DO Work Phone: [facility] 03-18-2025 10:15-0400 Respiratory rate 12 /min Timbo Ball DO Work Phone: [facility] 03-18-2025 10:15-0400 Systolic blood pressure 118 mm[Hg] Timbo Ball DO Work Phone: [facility] 12-29-2024 10:050 Body height 177.8 cm Timbo Ball DO Work Phone: [facility] 12-29-2024 10:21-0500 Body mass index (BMI) [Ratio] 27.2 kg/m2 Timbo Ball DO Work Phone: [facility] 12-29-2024 10:21-0500 Body temperature 96.1 [degF] Timbo Ball DO Work Phone: [facility] 12-29-2024 10:21-0500 Body weight 86.18 kg Timbo Ball DO Work Phone: [facility] 12-29-2024 10:21-0500 Diastolic blood pressure 60 mm[Hg] Timbo Ball DO Work Phone: [facility] 12-29-2024 10:21-0500 Heart rate 47 /min Timbo Ball DO Work Phone: [facility] 12-29-2024 10:21-0500 SaO2% (BldA) [Mass fraction] 96 % Timbo Ball DO Work Phone: [facility] 12-29-2024 10:21-0500 Systolic blood pressure 102 mm[Hg] Timbo Ball DO Work Phone: [facility] 11-25-2024 10:32-0500 Body height 177.8 cm Timbo Ball DO Work Phone: [facility] 11-25-2024 10:32-0500 Body mass index (BMI) [Ratio] 28.1 kg/m2 Timbo Ball DO Work Phone: [facility] 11-25-2024 10:32-0500 Body temperature 97.8 [degF] Timbo Ball DO Work Phone: [facility] 11-25-2024 10:32-0500 Body weight 88.9 kg Timbo Ball DO Work Phone: [facility] 11-25-2024 10:32-0500 Diastolic blood pressure 66 mm[Hg] Timbo Ball DO Work Phone: [facility] 11-25-2024 10:32-0500 Heart rate 74 /min Timbo Ball DO Work Phone: [facility] 11-25-2024 10:32-0500 Systolic blood pressure 124 mm[Hg] Timbo Ball DO Work Phone: [facility] 10-28-2024 15:02-0500 Body height 177.8 cm Timbo Ball DO Work Phone: [facility] 10-28-2024 15:02-0500 Body mass index (BMI) [Ratio] 28.1 kg/m2 Timbo Ball DO Work Phone: [facility] 10-28-2024 15:02-0500 Body weight 88.96 kg Timbo Ball DO Work Phone: [facility] 10-28-2024 15:02-0500 Diastolic blood pressure 78 mm[Hg] Timbo Ball DO Work Phone: [facility] 10-28-2024 15:02-0500 Heart rate 69 /min Timbo Ball DO Work Phone: [facility] 10-28-2024 15:02-0500 Respiratory rate 12 /min Timbo Ball DO Work Phone: [facility] 10-28-2024 15:02-0500 Systolic blood pressure 123 mm[Hg] Timbo Ball DO Work Phone: [facility] 10-26-2024 09:00-0500 Body height 177.8 cm Timbo Ball DO Work Phone: [facility] 10-26-2024 09:00-0500 Body mass index (BMI) [Ratio] 28.3 kg/m2 Timbo Ball DO Work Phone: [facility] 10-26-2024 09:00-0500 Body weight 89.35 kg Timbo Ball DO Work Phone: [facility] 10-26-2024 09:00-0500 Diastolic blood pressure 70 mm[Hg] Timbo Ball DO Work Phone: [facility] 10-26-2024 09:00-0500 Heart rate 73 /min Timbo Ball DO Work Phone: [facility] 10-26-2024 09:00-0500 Respiratory rate 18 /min Timbo Ball DO Work Phone: [facility] 10-26-2024 09:00-0500 SaO2% (BldA) [Mass fraction] 96 % Timbo Ball DO Work Phone: [facility] 10-26-2024 09:00-0500 Systolic blood pressure 120 mm[Hg] Timbo Ball DO Work Phone: [facility] 10-18-2024 13:22-0500 Diastolic blood pressure 65 mm[Hg] Timbo Ball DO Work Phone: [facility] 10-18-2024 13:22-0500 Heart rate 60 /min Timbo Ball DO Work Phone: [facility] 10-18-2024 13:22-0500 Respiratory rate 16 /min Timbo Ball DO Work Phone: [facility] 10-18-2024 13:22-0500 SaO2% (BldA) [Mass fraction] 97 % Timbo Ball DO Work Phone: [facility] 10-18-2024 13:22-0500 Systolic blood pressure 110 mm[Hg] Timbo Ball DO Work Phone: [facility] 10-18-2024 11:10-0500 Inhaled oxygen flow rate 4 L/min Timbo Ball DO Work Phone: [facility] 10-18-2024 09:08-0500 Body height 177.8 cm Timbo Ball DO Work Phone: [facility] 10-18-2024 09:08-0500 Body weight 88 kg Timbo Ball DO Work Phone: [facility] 10-04-2024 11:45-0500 Diastolic blood pressure 62 mm[Hg] Timbo Ball DO Work Phone: [facility] 10-04-2024 11:45-0500 Heart rate 60 /min Timbo Ball DO Work Phone: [facility] 10-04-2024 11:45-0500 Respiratory rate 16 /min Timbo Ball DO Work Phone: [facility] 10-04-2024 11:45-0500 SaO2% (BldA) [Mass fraction] 95 % Timbo Ball DO Work Phone: [facility] 10-04-2024 11:45-0500 Systolic blood pressure 99 mm[Hg] Timbo Ball DO Work Phone: [facility] 10-04-2024 09:30-0500 Inhaled oxygen flow rate 4 L/min Timbo Ball DO Work Phone: [facility] 10-04-2024 07:36-0500 Body height 177.8 cm Timbo Ball DO Work Phone: [facility] 10-04-2024 07:36-0500 Body weight 88.45 kg Timbo Ball DO Work Phone: [facility] 09-20-2024 11:23-0500 Blood Pressure Location Salomealeksandr LOYA [facility] 09-20-2024 11:23-0500 Diastolic blood pressure 64 mm[Hg] Salome LOYA [facility] 09-20-2024 11:23-0500 Heart rate 67 /min Salomealeksandr LOYA [facility] 09-20-2024 11:23-0500 Respiratory rate 18 /min Salomealeksandr LOYA [facility] 09-20-2024 11:23-0500 Systolic blood pressure 97 mm[Hg] Salome LOYA [facility] 08-31-2024 11:00-0400 Body height 177.8 cm DO Timbo Ball Work Phone: [facility] 08-31-2024 11:00-0400 Body mass index (BMI) [Ratio] 28.5 kg/m2 DO Timbo Ball Work Phone: [facility] 08-31-2024 11:00-0400 Body weight 90.43 kg DO Timbo Ball Work Phone: [facility] 08-31-2024 11:00-0400 Diastolic blood pressure 79 mm[Hg] DO Timbo Ball Work Phone: [facility] 08-31-2024 11:00-0400 Heart rate 69 /min DO Timbo Ball Work Phone: [facility] 08-31-2024 11:00-0400 Respiratory rate 12 /min DO Timbo Ball Work Phone: [facility] 08-31-2024 11:00-0400 Systolic blood pressure 116 mm[Hg] DO Timbo Ball Work Phone: [facility] 08-25-2024 09:46-0400 Diastolic blood pressure 79 mm[Hg] DO Timbo Ball Work Phone: [facility] 08-25-2024 09:46-0400 Heart rate 68 /min DO Timbo Ball Work Phone: [facility] 08-25-2024 09:46-0400 Systolic blood pressure 160 mm[Hg] DO Timbo Ball Work Phone: [facility] 08-16-2024 14:15-0400 Body height 177.8 cm [facility] 08-16-2024 14:15-0400 Body mass index (BMI) [Ratio] 28.4 kg/m2 [facility] 08-16-2024 14:15-0400 Body weight 89.81 kg [facility] 08-16-2024 14:15-0400 Diastolic blood pressure 80 mm[Hg] [facility] 08-16-2024 14:15-0400 Heart rate 71 /min [facility] 08-16-2024 14:15-0400 Respiratory rate 18 /min [facility] 08-16-2024 14:15-0400 SaO2% (BldA) [Mass fraction] 94 % [facility] 08-16-2024 14:15-0400 Systolic blood pressure 138 mm[Hg] [facility] 06-30-2024 10:03-0400 Body height 177.8 cm DO Timbo Ball Work Phone: [facility] 06-30-2024 10:03-0400 Body mass index (BMI) [Ratio] 28.5 kg/m2 DO Timbo Ball Work Phone: [facility] 06-30-2024 10:03-0400 Body weight 90.43 kg DO Timbo Ball Work Phone: [facility] 06-30-2024 10:03-0400 Diastolic blood pressure 73 mm[Hg] DO Timbo Ball Work Phone: [facility] 06-30-2024 10:03-0400 Heart rate 80 /min DO Timbo Ball Work Phone: [facility] 06-30-2024 10:03-0400 Respiratory rate 12 /min DO Timbo Ball Work Phone: [facility] 06-30-2024 10:03-0400 Systolic blood pressure 128 mm[Hg] DO Timbo Ball Work Phone: [facility] 05-06-2024 12:38-0400 Body height 177.8 cm DO Timbo Ball Work Phone: [facility] 05-06-2024 12:38-0400 Body mass index (BMI) [Ratio] 29 kg/m2 DO Timbo Ball Work Phone: [facility] 05-06-2024 12:38-0400 Body temperature 96.3 [degF] DO Timbo Ball Work Phone: [facility] 05-06-2024 12:38-0400 Body weight 91.62 kg DO Timbo Ball Work Phone: [facility] 05-06-2024 12:38-0400 Diastolic blood pressure 78 mm[Hg] DO Timbo Ball Work Phone: [facility] 05-06-2024 12:38-0400 Heart rate 62 /min DO Timbo Ball Work Phone: [facility] 05-06-2024 12:38-0400 SaO2% (BldA) [Mass fraction] 90 % DO Timbo Ball Work Phone: [facility] 05-06-2024 12:38-0400 Systolic blood pressure 108 mm[Hg] DO Timbo Ball Work Phone: [facility] 03-15-2024 11:40-0400 Body height 177.8 cm [facility] 03-15-2024 11:40-0400 Body mass index (BMI) [Ratio] 29 kg/m2 [facility] 03-15-2024 11:40-0400 Body weight 91.73 kg [facility] 03-15-2024 11:40-0400 Diastolic blood pressure 76 mm[Hg] [facility] 03-15-2024 11:40-0400 Heart rate 66 /min [facility] 03-15-2024 11:40-0400 Respiratory rate 12 /min [facility] 03-15-2024 11:40-0400 Systolic blood pressure 129 mm[Hg] [facility] 01-08-2024 14:10-0500 Body height 177.8 cm [facility] 01-08-2024 14:10-0500 Body mass index (BMI) [Ratio] 28.8 kg/m2 [facility] 01-08-2024 14:10-0500 Body weight 90.94 kg [facility] 11-21-2023 10:30-0500 Body height 177.8 cm Timbo Ball Other [facility] [employer] Other 11-21-2023 10:30-0500 Body mass index (BMI) [Ratio] 29.12 kg/m2 Timbo Ball Other [employer] [facility] [employer] Other 11-21-2023 10:30-0500 Body weight 92.08 kg Timbo Ball Other [employer] [facility] [employer] Other 11-21-2023 10:30-0500 Diastolic blood pressure 66 mm[Hg] Timbo Ball Other [employer] [facility] [employer] Other 11-21-2023 10:30-0500 Respiratory rate 12 /min Timbo Ball Other [employer] Other 11-21-2023 10:30-0500 Systolic blood pressure 103 mm[Hg] Timbo Ball Other [employer] Other 09-24-2023 11:00-0500 Body height 177.8 cm Timbo Ball Other [employer] Other 09-24-2023 11:00-0500 Body mass index (BMI) [Ratio] 28.69 kg/m2 Timbo Ball Other [employer] Other 09-24-2023 11:00-0500 Body weight 90.72 kg Timbo Ball Other [employer] Other 09-24-2023 11:00-0500 Diastolic blood pressure 73 mm[Hg] Timbo Ball Other [employer] Other 09-24-2023 11:00-0500 Respiratory rate 12 /min Timbo Ball Other [employer] Other 09-24-2023 11:00-0500 Systolic blood pressure 134 mm[Hg] Timbo Ball Other [employer] Other 08-25-2023 12:21-0400 Blood Pressure Location Salome LOYA [facility] 08-25-2023 12:21-0400 Diastolic blood pressure 82 mm[Hg] Salome LOYA [facility] 08-25-2023 12:21-0400 Heart rate 80 /min Salome LOYA [facility] 08-25-2023 12:21-0400 Respiratory rate 16 /min Salome LOYA [facility] 08-25-2023 12:21-0400 Systolic blood pressure 137 mm[Hg] Salome LOYA [facility] 04-12-2023 09:16-0400 Body temperature 97 [degF] PA Aury Shehorn Work Phone: [facility] 04-12-2023 09:16-0400 Body weight 88.45 kg PA Aury Shehorn Work Phone: [facility] 04-12-2023 09:16-0400 Diastolic blood pressure 62 mm[Hg] PA Aury Shehorn Work Phone: [facility] 04-12-2023 09:16-0400 Heart rate 80 /min PA Aury Shehorn Work Phone: [facility] 04-12-2023 09:16-0400 SaO2% (BldA) [Mass fraction] 96 % PA Aury Shehorn Work Phone: [facility] 04-12-2023 09:16-0400 Systolic blood pressure 123 mm[Hg] PA Aury Shehorn Work Phone: [facility] 03-24-2023 12:00-0400 Body height 177.8 cm Timbo Ball Other [employer] Other 03-24-2023 12:00-0400 Body mass index (BMI) [Ratio] 28.44 kg/m2 Timbo Ball Other [employer] Other 03-24-2023 12:00-0400 Body weight 89.9 kg Timbo Ball Other [employer] Other 03-24-2023 12:00-0400 Diastolic blood pressure 67 mm[Hg] Timbo Ball Other [employer] Other 03-24-2023 12:00-0400 Respiratory rate 12 /min Timbo Ball Other [employer] Other 03-24-2023 12:00-0400 Systolic blood pressure 123 mm[Hg] Timbo Ball Other [employer] Other 04-29-2022 14:30-0400 Body height 177.8 cm Niya Chowjorge Other [employer] Other 04-29-2022 14:30-0400 Body mass index (BMI) [Ratio] 28.69 kg/m2 Niya Samuel Other [employer] Other 04-29-2022 14:30-0400 Body temperature 96.3 [degF] Niya Samuel Other [employer] Other 04-29-2022 14:30-0400 Body weight 90.72 kg Niya Chowjorge Other [employer] Other 04-29-2022 14:30-0400 Diastolic blood pressure 80 mm[Hg] Niyavidya Baker Other [employer] Other 04-29-2022 14:30-0400 SaO2% (BldA) [Mass fraction] 98 % Niya Samuel Other [employer] Other 04-29-2022 14:30-0400 Systolic blood pressure 120 mm[Hg] Niya Baker Other [employer] Other 04-19-2022 10:04-0400 Blood Pressure Location Salome LOYA [facility] 04-19-2022 10:04-0400 Diastolic blood pressure 84 mm[Hg] Salome LOYA [facility] 04-19-2022 10:04-0400 Heart rate 67 /min Salome LOYA [facility] 04-19-2022 10:04-0400 Respiratory rate 16 /min Salome LOYA [facility] 04-19-2022 10:04-0400 Systolic blood pressure 143 mm[Hg] Salome LOYA [facility] Encounters Encounter Date Encounter Type Care Provider Facility Start: 09-26-2025 ambulatory Salome LOYA Facili ty:[facility] [place] Start: 07-29-2025 End: 07-29-2025 ambulatory Timbo Baig DO Work Phone: [facility] Work Phone: Start: 07-29-2025 End: 07-29-2025 Patient encounter procedure Timbo Baig DO -[facility] Work Phone: Start: 05-12-2025 End: 05-12-2025 ambulatory Timbo Baig DO Work Phone: [facility] Work Phone: Start: 05-12-2025 End: 05-12-2025 Patient encounter procedure Jaylon Finnegan MD -[facility] Work Phone: Start: 03-25-2025 Non-patient / Non-visit Timbo velasco DO -[facility] Work Phone: Start: 03-18-2025 Patient encounter procedure Timbo Ball DO Work Phone: [facility] Start: 03-18-2025 End: 03-18-2025 Patient encounter procedure Timbo Ball DO -[facility] Work Phone: Start: 12-29-2024 End: 12-29-2024 ambulatory Timbo Ball DO Work Phone: [facility] Work Phone: Start: 12-29-2024 End: 12-29-2024 Patient encounter procedure Timbo Ball DO Work Phone: [facility] Work Phone: Start: 12-07-2024 End: 12-07-2024 Patient encounter procedure Timbo Ball DO Work Phone: [facility] [place] Work Phone: Start: 12-07-2024 End: 12-07-2024 ambulatory Timbo Ball DO Work Phone: [facility] Work Phone: Start: 11-25-2024 End: 11-25-2024 ambulatory Timbo Ball DO Work Phone: [facility] Work Phone: Start: 11-25-2024 End: 11-25-2024 Patient encounter procedure Timbo Ball DO Work Phone: [facility] Work Phone: Start: 11-04-2024 Non-patient / Non-visit Benjam in Ball DO Work Phone: [facility] Work Phone: Start: 10-28-2024 End: 10-28-2024 Patient encounter procedure Timbo Ball DO Work Phone: [facility] Work Phone: Start: 10-26-2024 End: 10-26-2024 Patient encounter procedure Timbo Ball DO Work Phone: [facility] Work Phone: Start: 10-18-2024 Non-patient / Non-visit Benjam in Ball DO Work Phone: [facility] Work Phone: Start: 10-18-2024 End: 10-18-2024 Admission to same day surgery center Timbo Ball DO Work Phone: [facility] Work Phone: Start: 10-18-2024 End: 10-18-2024 ambulatory Jaylon Finnegan Facility:[facility] Start: 10-04-2024 Non-patient / Non-visit Benjam in Ball DO Work Phone: [facility] Work Phone: Start: 10-04-2024 End: 10-04-2024 Admission to same day surgery center Timbo Ball DO Work Phone: [facility] Work Phone: Start: 10-04-2024 End: 10-04-2024 ambulatory Jaylon Finnegan Facility:[facility] Start: 09-20-2024 End: 09-20-2024 ambulatory Salome LOYA Facility:[facility] Start: 09-20-2024 End: 09-20-2024 Patient encounter procedure Salome LOYA [facility] [place] Start: 09-15-2024 End: 09-15-2024 ambulatory DO Timbo Ball Work Phone: [facility] Work Phone: Start: 09-15-2024 End: 09-15-2024 Patient encounter procedure DO Timbo Ball Work Phone: [facility] Surgery Work Phone: Start: 08-31-2024 End: 08-31-2024 ambulatory DO Timbo Ball Work Phone: [facility] Work Phone: Start: 08-31-2024 End: 08-31-2024 Patient encounter procedure DO Timbo Ball Work Phone: [facility] Work Phone: Start: 08-26-2024 End: 08-26-2024 Patient encounter procedure DO Timbo Ball Work Phone: [facility] [place] Work Phone: Start: 08-26-2024 End: 08-26-2024 ambulatory DO Timbo Ball Work Phone: [facility] Work Phone: Start: 08-25-2024 End: 08-25-2024 ambulatory DO Timbo Ball Work Phone: [facility] Work Phone: Start: 08-25-2024 End: 08-25-2024 Patient encounter procedure DO Timbo Ball Work Phone: [facility] [place] Work Phone: Start: 08-16-2024 End: 08-16-2024 Patient encounter procedure [facility] Work Phone: Start: 08-16-2024 End: 08-16-2024 ambulatory Ling Zain Kownazdanilo [facility] Work Phone: Start: 06-30-2024 End: 06-30-2024 ambulatory DO Timbo Ball Work Phone: [facility] Work Phone: Start: 06-30-2024 End: 06-30-2024 Patient encounter procedure DO Timbo Ball Work Phone: [facility] Work Phone: Start: 05-06-2024 End: 05-06-2024 ambulatory DO Timbo Ball Work Phone: [facility] Work Phone: Start: 05-06-2024 End: 05-06-2024 Patient encounter procedure DO Timbo Baig Work Phone: [facility] Vascular Surgery Work Phone: Start: 04-29-2024 Non-patient / Non-visit DO Sheng ambriz Ball Work Phone: [facility] Work Phone: Start: 04-17-2024 Non-patient / Non-visit DO Sheng ambriz Ball Work Phone: [facility] Work Phone: Start: 04-07-2024 Non-patient / Non-visit DO Sheng ambriz Ball Work Phone: [facility] Work Phone: Start: 03-15-2024 End: 03-15-2024 ambulatory [facility] Work Phone: Start: 03-15-2024 End: 03-15-2024 Patient encounter procedure [facility] Work Phone: Start: 02-11-2024 End: 02-11-2024 ambulatory NAVNEET BLANC Not Available Start: 01-15-2024 End: 01-15-2024 ambulatory [facility] Start: 01-08-2024 End: 01-08-2024 Patient encounter procedure [facility] Neurosurgery Work Phone: Start: 12-26-2023 Non-patient / Non-visit [facility] Work Phone: Start: 12-17-2023 End: 12-17-2023 ambulatory [facility] Start: 11-21-2023 End: 11-21-2023 ambulatory Timbo Baig Other [facility] Other Start: 11-21-2023 Office outpatient vi sit 15 minutes Timbo Baig [facility] Start: 10-08-2023 End: 10-08-2023 ambulatory Timbo Baig Other [employer] Other Start: 10-08-2023 Telephone encounter Timbo Baig [facility] Start: 09-24-2023 End: 09-24-2023 ambulatory Timbo Baig Other [employer] Other Start: 09-24-2023 Office outpatient vi sit 25 minutes Timbo Baig [facility] Start: 09-04-2023 Office outpatient vi sit 15 minutes Jaylon Finnegan [facility] V[facility] Surgery Start: 09-04-2023 End: 09-04-2023 ambulatory DO Timbo Baig Work Phone: [employer] Other Start: 09-04-2023 End: 09-04-2023 Patient encounter procedure DO Timbo Baig Work Phone: [facility] Start: 08-25-2023 End: 08-25-2023 Patient encounter procedure Salome LOYA [facility] Start: 2023 End: 2023 ambulatory Niya Baker Other [employer] Other Start: 2023 Telephone encounter Niya Barber [facility] Start: 05-22-2023 End: 05-22-2023 ambulatory Niya Baker Other [employer] Other Start: 05-22-2023 Telephone encounter Niya Barber [facility] Start: 05-01-2023 End: 05-01-2023 ambulatory DO Timbo Baig Work Phone: [facility] Work Phone: Start: 05-01-2023 End: 05-01-2023 Patient encounter procedure DO Timbo Baig Work Phone: [facility] Start: 04-12-2023 End: 04-12-2023 ambulatory ANDERSON Ann Work Phone: [facility] Work Phone: Start: 04-12-2023 End: 04-12-2023 Patient encounter procedure ANDERSON Ann Work Phone: [facility] Work Phone: Start: 04-02-[address] TIMBO BAIG [facility] ty:[facility] Start: 03-24-2023 End: 03-24-2023 ambulatory Timbo Baig Other [employer] Other Start: 03-24-2023 Patient encounter procedure Timbo Baig [facility] Start: 09-25-2022 End: 09-26-[address] TIMBO BAIG Facility:[facility] Start: 07-09-2022 End: 07-10-2022 ambulatory TITA RIVERA Facility:[facility] Start: 04-29-2022 End: 04-29-2022 ambulatory Niya Baker Other [employer] Other Start: 04-29-2022 Follow-up encounter Niya Barber [facility] Start: 04-29-2022 End: 04-29-2022 Patient encounter procedure DO Timbo Baig Work Phone: [facility] Start: 04-27-2022 End: 04-28-[address] TIMBO BAIG Facility:[facility] Start: 04-19-2022 End: 04-19-2022 Patient encounter procedure Salome LOYA [facility] Start: 04-18-2022 End: 04-19-[address] SALOME LOYA . Facility:[facility] Start: 03-13-2022 Adult health examination Jaylon Finnegan Other [facility] [employer] Other Procedures Date Procedure Procedure Detail Performing [...] brachial press ure index US ankle/arm indices [facility] Start: 05-12-2025 Doppler ultrasonogra phy of bilateral carotid arteries US carotid doppler BI [facility] Start: 12-07-2024 Pulse volume recorde r plethysmography [facility] Start: 10-18-2024 [facility] Start: 10-04-2024 [facility] Start: 08-26-2024 Pulse volume recorde r plethysmography [facility] Start: 08-25-2024 Radionuclide myocard ial perfusion stress study NM charito perf SPECT rest & str [facility] Start: 08-16-2024 [facility] Start: 06-30-2024 Patient referral [facility] Work Phone: Start: 05-06-2024 Doppler ultrasonogra phy of bilateral carotid arteries US carotid doppler BI [facility] Start: 05-06-2024 US.doppler Carotid a rteries - [facility] Start: 01-08-2024 Patient referral [facility] Work Phone: Start: 05-01-2023 Doppler ultrasonogra phy of bilateral carotid arteries US carotid doppler BI [facility] Start: 05-01-2023 US.doppler Carotid a rteries - bilateral [facility] Start: 04-29-2022 Doppler ultrasonogra phy of bilateral carotid arteries US carotid doppler [facility] Ankle brachial press ure index [facility] Comprehensive metabo lic 1999 panel - Serum or Plasma [facility] Comprehensive metabo lic 1999 panel - Serum or Plasma [facility] Comprehensive metabo lic 1999 panel - Serum or Plasma [facility] Patient Education [facility] Work Phone: Patient referral [facility] Work Phone: US.doppler Carotid a rteries - bilateral [facility] US.doppler Carotid a rteries -right [facility] XR Lumbar spine 4 Views [facility] Immunizations Immunization Date Immunization Notes Care Provider Noah jamison 07-29-2025 influenza, high dose seasonal, preservative-free Timbo Baig DO Work Phone: [facility] 07-16-2024 influenza virus vaccine, unspecified formulation Salome LOYA [facility] 07-30-2023 influenza virus vaccine, unspecified formulation Salome LOYA [facility] 08-04-2022 COVID-19 Pfizer (bivalent) Timbo Baig Other [facility] 08-04-2022 influenza virus vaccine, unspecified formulation Salome LOYA [facility] 08-04-2022 influenza, high dose seasonal, preservative-free Timbo Baig Other [employer] Other 02-21-2022 COVID-19 Pfizer Timbo velasco Other [facility] 02-21-2022 SARS-CoV-2 mRNA (svduyvukeri-ornv-ghbfv se) vaccine Salome LOYA [facility] 09-06-2021 zoster vaccine recombinant Timbo Baig Other [facility] 08-10-2021 influenza virus vaccine, unspecified formulation Salome LOYA [facility] 08-07-2021 COVID-19 Vaccine Pfi zer - Documentation Purposes Only Timbo Baig Other [facility] Comment on above: Result Comment: 2022: [id number] 07-19-2021 influenza virus vaccine, unspecified formulation Salome LOYA [facility] 05-16-2021 zoster vaccine recombinant Timbo Baig Other [facility] 01-09-2021 COVID-19 Vaccine Pfi zer - Documentation Purposes Only Timbo Baig Other [facility] Comment on above: Result Comment: 2022: [id number] 12-19-2020 COVID-19 Vaccine Pfi zer - Documentation Purposes Only Timbo Jenniffer Other [facility] Comment on above: Result Comment: 2022: [id number] 07-31-2020 influenza virus vaccine, unspecified formulation Salome LOYA [facility] 08-20-2019 influenza virus vaccine, split virus (incl. purified surface antigen) Jaylon Finnegan Other [facility] Other 08-20-2019 influenza virus vaccine, unspecified formulation [facility] 08-10-2019 influenza virus vaccine, unspecified formulation Salome LOYA [facility] 02-19-2019 pneumococcal polysaccharide vaccine, 23 valent Timbo Baig Other [facility] 09-21-2018 influenza virus vaccine, unspecified formulation Salome LOYA [facility] 08-19-2018 influenza virus vaccine, split virus (incl. purified surface antigen) Jaylon Finnegan Other [facility] Other 08-19-2018 influenza virus vaccine, unspecified formulation [facility] 02-16-2018 pneumococcal conjuga te vaccine, 13 valent Timbo Baig Other [facility] 09-02-2017 influenza virus vaccine, unspecified formulation Salome LOYA [facility] 08-28-2016 influenza virus vaccine, unspecified formulation Salome LOYA [facility] 08-22-2015 influenza virus vaccine, unspecified formulation Salome LOYA [facility] 08-19-2013 influenza virus vaccine, unspecified formulation Salome LOYA [facility] Payers Date Payer Category Payer Self-pay [id number] 2024 Medicare [id number] 1959 Medicare [id number] 1959 Private Health Insurance [id number] 1942 Unknown [id number] 2.16.84 0.1.067948.3.579.2.593 1942 Unknown [id number] 2.16.84 0.1.345278.3.579.2.593 1942 Unknown [id number] 2.16.84 0.1.225584.3.579.2.593 1942 Unknown [id number] 2.16.84 0.1.188105.3.579.2.593 1942 Unknown [id number] 2.16.84 0.1.969782.3.579.2.593 1942 Unknown [id number] 2.16.84 0.1.332747.3.579.2.1259 1942 Unknown [id number] 2.16.8 40.1.298931.3.579.2.727 1942 Unknown [id number] 2.16.8 40.1.061357.3.579.2.727 Unknown [id number] 2.16.8 40.1.025723.3.579.2.531 Unknown [id number] 2.16.8 40.1.829555.3.579.2.531 Unknown [id number] 2.16.8 40.1.777749.3.579.2.531 Unknown [id number] 2.16.8 40.1.154448.3.579.2.531 Unknown [id number] 2.16.8 40.1.476742.3.579.2.531 Unknown [id number] 2.16.8 40.1.536179.3.579.2.531 Unknown [id number] 2.16.8 40.1.864007.3.579.2.531 Social History Date Type Detail Facility Start: 08-27-2021 End: 12-29-2024 Tobacco smoking status Ex-smoker (finding) [facility] Sex Assigned At Male [facility] Start: 1940 Sex Assigned At Male F [facility] Start: 04-12-2023 Alone [facility] Start: 04-12-2023 0 [facility] Start: 03-12-2024 Tobacco smoking stat us VTIS Never smoked tobacco (finding) [facility] Start: 11-25-2024 End: 12-29-2024 Sex Male (finding) [facility] Medical Equipment Procedure Code Equipment Code Equipment Origin al Text Equipment Identifier Dates Angiogram, lower extremity, left Multiple peripheral artery stent, bare-metal [id number] [facility] Start: 10-04-2024 Functional Status Date Assessment Result Facility 09-20-2024 Functional Status N/A [facility] 08-25-2023 Functional Status N/A [facility] Clinical Notes 04-19-2022 to 05-12-2025 Note Date [...] Subclinical hypothyroidism acute July 29, 2025 9:59am [facility] Work Phone: 1(168) 368-269207-03-2025 [facility] [address] [place] [address] Ultrasound Report Signed Patient: Max Brady MR#: [id number] : 1940 Acct:[id number] Age/Sex: 84 / M ADM Date: 5 Loc: [facility] Room: Type: [facility] Attending Dr: Jaylon Finnegan MD Ordering Provider: [...] Finnegan MD,FACS,FSVS 05/12/2025 11:52 AM Dictation Location: [id number] Tech: Merle Donaldson Transcribed By: DANIEL 05/12/25 1152 Dictated By: Jaylon Finnegan MD 05/12/25 1151 Signed By: 05/12/25 1152 [facility] Work Phone: 1(673) 966-295907-03-2025 [facility] [address] [place] [address] Ultrasound Report Signed Patient: Max Brady MR#: [id number] : 1940 Acct:[id number] Age/Sex: 84 / M ADM Date: 5 Loc: [facility] Room: Type: [facility] Attending Dr: Jaylon Finnegan MD Ordering Provider: [...] Finnegan MD,FACS,FSVS 05/12/2025 11:51 AM Dictation Location: [place] [address] Tech: Pam Sheehan Transcribed By: DANIEL 05/12/25 115 Dictated By: Jaylon Finnegan MD 05/12/25 115 Signed By: 05/12/25 [employer] [facility] Work Phone: 1(139) 963-793105-09-2025 Evaluation note* Diagnosis Onset Date Resolution Status [...] Primary insomnia acute March 18, 2025 9:57am [facility] Work Phone: 1(842) 963-780705-09-2025 Evaluation note* Diagnosis Onset Date Resolution Status [...] artery stenosis acute May 12, 2025 10:37am [facility] Work Phone: 1(586) 621-552212-09-2024 Evaluation note* Diagnosis Onset Date Resolution Status Admit Date PAD (peripheral artery disease) acut e October 18, 2024 8:56am Carotid stenosis, bilateral acute October 26, 2024 8:58am Chronic heart failure with preserved ejection fraction (HFpEF) acute October 26, 024 8:58am Coronary artery disease invo lving [place] coronary artery of [place] heart wi acute October 26, 2 024 [...] leg claudication acute Ja nuary 2024 9:58am [facility] Work Phone: 1(506) 179-827511-11-2024 Hospital Discharge instructions Patient Education 09/20/2024 12:11:28 Kidney Stones, Mjsn-sv-Dmlf Kidney Stones Kidney stones are rock-like masses [...] Follow these instructions at home: Medicines Take zolu-ylp-hpetlvc and prescription medicines only as told by [...] provider. Document Revised: 06/20/2023 Document Reviewed: 06/20/2023 [employer] Patient Education 2023 [employer]Setter. Follow Up Care 04/21/2023 10:27:24 With:REINIER HUSAIN, Salome Jaramillo, URL Address: [facility] [address], [place] [address]- [phone] When: Unknown Comments:1 yr w/ KUJohnathon [facility] 11-11-2024 NotePatient Education Urology Kidney Stones Kidney [...] these instructions at home: Medicines ??? Take uemc-rue-lckuoco and prescription medicines only as told by [...] provider. Document Revised: 06/20/2023 Document Reviewed: 06/20/2023 [employer] Patient Education ? 2023 [employer] 09-15-2024 Evaluation note* Diagnosis Onset Date Resolution Status Admit Date PAD (peripheral artery disease) acut e September 15, 2024 11:48am PAD (peripheral artery disease) acut e October 18, 2024 8:56am Carotid stenosis, bilateral acute October 26, 2024 8:58am Chronic heart failure with preserved ejection fraction (HFpEF) acute October 26 8:58am Coronary artery disease invo lving [place] coronary artery of [place] heart wi acute October 26 8:58am Nonrheumatic [...] leg claudication acute Ja nuary 2024 9:58am [facility] Work Phone: 1(109) 921-969310-22-2024 Evaluation note* Diagnosis Onset Date Resolution Status [...] 024 8:58am Coronary artery disease invo lving [place] coronary artery of [place] heart wi acute October 26, 2 024 [...] Primary insomnia acute October 28, 2024 2:47pm [facility] Work Phone: 1(990) 955-126703-07-2024 NotePatient here for 1 mo follow up [...] pain. All other systems reviewed and are negative.[facility] 01-15-2024 NoteCardiovascular Medicine [facility] SUBJECTIVE Chief Complaint Patient presents with Coronary Artery Disease Congestive Heart Failure Hypertension Hyperlipidemia Max Brady is a 83 y.o. male here for follow-up. HPI PMHx: AVR 2014, CAD s/p CABG x1 2014, HTN, carotid stent by vascular surgeon in [place] (Dr. Cedillo) 01/15/2024 He notes that his [...] 7. Mild mitral va (more content not included)...[facility]02-07-2024 NotePatient here for 1 year follow [...] pain. All other systems reviewed and are negative.[facility] 12-17-2023 NoteCardiovascular Medicine [facility] SUBJECTIVE No chief complaint on file. Max Brady is a 83 y.o. male here for follow-up. HPI PMHx: AVR 2014, CAD s/p CABG x1 2015, HTN, carotid stent by vascular surgeon in [place] (Dr. Cedillo) He works out a few [...] aortic stenosis by invasive hemodynamic study. 2. Hyzflvow-dr-gtrmdk two-vessel coronary artery disease involving the left anterior descending and left circumflex coronary arteries. 3. Normal right-sided heart pressures and wedge pressure. 4. Normal cardiac output/cardiac index. 5. 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 (more content not included)...[facility]01-12-2024 Evaluation note* Encounter Date Diagnosis Assessment [...] and feet daily for blisters and ulcerations. [facility] Other 11-15-2023 Evaluation note* Encounter Date Diagnosis [...] w/ serial Echocardiogram Control BP and HR [employer] [facility] Other 10-26-2023 Evaluation note* Encounter Date Diagnosis [...] pain which seems to be bothering him. [facility] Other 10-16-2023 Hospital Discharge instructions Patient Education [...] include: ?8 oz (237 mL) of milk, wcsuzsu-ivrqacrnvavy-pmllh milk, and calcium- fortifiedfruit juice. Calcium-fortified means [...] ?Spinach (cooked), rhubarb, beets, sweet potatoes, and Israeli chard. ?Peanuts. ?Potato chips, macedonian fries, and baked potatoes with skin on. ?Nuts and nut products. ?Chocolate. If you regularly take a diuretic medicine, make sure to eat at least 1 or 2 servings of fruits or vegetables that are high in potassium each day. These include: ?Avocado. ?Banana. ?[place], prune, carrot, or tomato juice. ?Baked potato. [...] magnesium, fish oil, or vitamin B6. Take rtca-fcr-enewenv and prescription medicines only as told by [...] Casseroles. Pizza. Lasagna. Frozen meals. Potato chips. Kosovan fries. The items listed above may not [...] provider. Document Revised: 07/08/2022 Document Reviewed: 07/08/2022 [employer] Patient Education 2022 [employer]Setter. Follow Up Care 05/30/2023 13:07:47 With:REINIER HUSAIN, Salome Jaramillo, URL Address: [facility] [address], [place] [address]- When:Within 1 Year(s) Comments:w/MELQUIADES [facility] 05-15-2023 Evaluation note* Encounter Date Diagnosis Assessment [...] High risk medication use (ICD-10 - Z79.899) [facility] Other 06-20-2022 Evaluation note* Encounter Date Diagnosis [...] agrees with this plan, denies any questions. 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 Follow Up Care 08/27/2021 10:53:23 With:Salome LOYA MD, URL Address: [facility] [address], [place] [address] [phone] When:04/19/2023 [facility] evaluation + Plan note Future Appointments Appointment Date:04/21/2023 09:45:00 AM Scheduled Provider:Salome LOYA MD Location:[facility] Appointment Type:URO Office Visit [facility] evaluation + Plan note Future Appointments Appointment Date:08/30/2024 10:30:00 AM Scheduled Provider:Salome LOYA MD Location:[facility] Appointment Type:URO Office Visit [facility] evaluation + Plan note Future Appointments Appointment Date:09/26/2025 10:30:00 AM Scheduled Provider:Salome LOYA MD Location:[facility] Appointment Type:URO Office Visit [facility] evaluation noteNo assessment information available [facility] Work Phone: Evaluation note* Diagnosis Onset Date Resolution Status Viral URI acute [facility] [employer] [facility], [facility] Work Phone: Evaluupqku noteNo InformationNort [employer] Other Evaluation note* Diagnosis Onset Date Resolution [...] acute Medicare annual wellness visit, subsequent noneactive [facility] Work Phone: Evaluation note* Diagnosis Onset Date Resolution Status ASHD (arteriosclerotic heart disease) acute 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 acute Carotid stenosis, bilateral acute Chronic kidney disease acute Hypercholesterolemia acute Hypertension acute Lumbar spondylosis with myelopathy acute Medicare annual wellness visit, subsequent noneactive History of left common carot id artery stent placement acute [facility] Work Phone: Evaluation note* Diagnosis Onset Date Resolution Status History of left common carotid artery stent placement acute ASHD (arteriosclerotic heart disease) acute 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 acute Carotid stenosis, bilateral acute Chronic kidney disease acute Hypercholesterolemia acute Hypertension acute Lumbar spondylosis with myelopathy acute [facility] Work Phone: Evaluation note* Diagnosis Onset Date Resolution Status ASHD (arteriosclerotic heart disease) acute 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 acute Carotid stenosis, bilateral acute Chronic heart failure with p reserved ejection fraction (HFpEF) acute Chronic kidney disease acute Hypercholesterolemia acute Hypertension acute Lumbar spondylosis with myelopathy acute Nonrheumatic mitral (valve) stenosis acute [facility] Work Phone: Evaluation note* Diagnosis Onset [...] fraction (HFpEF) acute Hypercholesterolemia acute Hypertension acute [facility] Work Phone: Evaluation note* Diagnosis Onset Date Resolution Status ASHD (arteriosclerotic heart disease) acute 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 acute Carotid stenosis, bilateral acute Chronic kidney disease acute Hypercholesterolemia acute Hypertension acute Lumbar spondylosis with myelopathy acute Medicare annual wellness visit, subsequent noneactive [facility] Work Phone: History general Narrative - Reported* Type Description Date Medical History carotid stenosis Medical History HTN Surgical History heart valve replaced 2013 Surgical History left internal carotid angioplas ty and stent 2011 [facility] Other History general Narrative - Reported* Type [...] RIGHT 2019 Hospitalization History SEE SURGICAL HX [facility] Other History general Narrative - Reported* Type [...] kidney 05/2023 Hospitalization History SEE SURGICAL HX [facility] Other Hospital course Narrative No data available for this section [facility] progress note No data available for this section [facility] reason for referral (narrative)* Reason Referral for lumbar foraminal stenosis and left lower extremity weakness. 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 372) Referral Organization [facility] Referring Provider First Name Timbo Referring Provider Last Name Jenniffer Referring Provider Specialty Internal Me dicine Referred Organization [facility] Referred Provider Boby Mai Referred Address [place], [place],[address] Referred Provider Specialty Neurological Surgery Referral Priority [...] Notes Include recent and p revious MRI [facility] Other Reason for referral (narrative)No reason for referral information availableA[facility] Work Phone: Chief Complaint and Reason [...] 2024 8:58am Coronary artery disease invo lving [place] coronary artery of [place] heart wi October 26, 2024 8:58am Nonrheumatic [...] 2024 8:58am Coronary artery disease invo lving [place] coronary artery of [place] heart wi October 26, 2024 8:58am Nonrheumatic [...] 07, 2024 1 2:50pm FOLLOW UP FROM [facility] December 29, 2024 10:14am Reason for Visit Admit Date PAD (peripheral artery disease) October 18, 2024 8:56am Carotid stenosis, bilateral October 8:58am Chronic heart failure with p reserved ejection fraction (HFpEF) October 26, 2024 8:58am Coronary artery disease invo lving [place] coronary artery of [place] heart wi October 26, 2024 8:58am Nonrheumatic [...] Member Role Status Dates Abimael Cruz MD Clinical Exercise Physiologist Active Timbo Baig DO Primary Care Provider [...] Provider Active Start: May 12, 2025 Jaylon Finnegan MD Attending [...] face for FREEMAN price- fax note to [phone] (unrecognized sect ion and content) No Status Records FoundNo Status Records FoundNo Status Records FoundNo Status Records FoundNo Status Records Found INFORMATION SOURCE (unrecogn ized section and content) DATE CREATED AUTHOR 03/25/2023 [facility] [place] [facility] DATE CREATED AUTHOR AUTHOR'S ORGANIZ ATION 01/16/2024 [facility] DATE CREATED AUTHOR AUTHOR'S ORGANIZ ATION 02/12/2024 [facility] DATE CREATED AUTHOR AUTHOR'S ORGANIZ ATION 09/21/2024 [facility] DATE CREATED AUTHOR AUTHOR'S ORGANIZ ATION 06/01/2025 [facility] FOR RECORDS PERTAINING TO PATIENTS [...] BE BASED ON THE PRIMARY CLINICAL RECORDS. [facility]. provides no warranty or guarantee of the accuracy or completeness of information in this document.
== END 2025-08-11 12:29 | disposition home or self-care (01) ==
LOC: PM 12:29
PROVIDERS: PCP Internal Medicine; Visit Provider Nurse Practitioner
DX: M48.062 Spinal stenosis, lumbar region with neurogenic claudication (principal)
CPT/HCPCS: G0463

== ENCOUNTER 2025-08-29 10:01 | Day surgery (SDC) | payer MEDICARE, OTHER, SELFPAY ==
--- OUTSIDE RECORDS SUMMARY | 2025-08-29 10:07 | XMS_ITS | CCD ---
Author Organization [facility] CliniSytn Care Team Providers Care Support Director Name Role Phone TIMBO BAIG Primary Care Physician DO Timbo Baig Primary Care Provider [phone] MD Jaylon Finnegan Attending Provider Niya Baker [...] Unavailable LOYA ., DR MCMAHON Consulting Unavailable [place], DR IVY Jenkins Consulting Unavailable ANDERSON Ann Attending Provider [phone] DO Timbo Baig Primary Care Provider FREEMAN Baker Attending Provider Jaylon Finnegan Unavailable [phone] DO Timbo Baig Primary Care Provider FREEMAN Baker Attending Provider TITA JJ Attending Unavailable TITA JJ Attending Unavailable NAVNEET BLANC Attending Unavailable RADHA THOMSON Referring Unavailable DO Timbo Baig Primary Care Provider FREEMAN Baker Attending Provider Ball, DO Timbo Primary Care Provider Twohig, DO Bertha Pittman Attending Provider MD Abimael Cruz Referring Provider Ball, DO Timbo Primary Care Provider Twohig, DO Bertha Pittman Attending Provider MD Abimael Cruz Referring Provider Jenniffer DO, Timbo Primary Care Provider Kain HUSAIN, Jaylon Lepe Attending Provider Samuel DOMÍNGUEZ-C, Niya Jaramillo Attending Provider Jenniffer DO, Timbo Primary Care Provider [phone] Jenniffer GARCIA, Timbo Attending Provider [phone] Jaylon Finnegan MD Attending Provider Jenniffer GARCIA, Timbo Primary Care Provider Jenniffer GARCIA, Timbo Attending Provider Salome LOYA Attending Unavailable Salome LOYA Attending Unavailable Jenniffer [facility] Primary Care Provider Dandre Degroot MD Attending Provider Jaylon Finnegan Admitting Unavailabl e Jaylon Finnegan Attending Unavailabl e [employer] Unavailable Jaylon Finnegan Admitting Unavailabl e Jaylon Finnegan Attending Unavailabl e [employer] Unavailable Jaylon Finnegan Admitting Unavailabl e Jaylon Finnegan Attending Unavailabl e [employer] Unavailable Twohig, Ling D Admitting Unavailable Twohig, Ling D Attending Unavailable Abimael Cruz Referring Unavai bobby Baig [facility] Unavailable Twohig, Ling D Attending Un[facility] Twohig, Ling D Admitting Unavailable Niya Vela Admitting Unavailable Niya Vela Attending Un[facility] Unavailable Jaylon Finnegan Attending Unavailabl e Kain, Jaylon Lepe Admitting Unavailabl e [employer] Unavailable Allergies Allergy Classification Reported Allergen(s) Allergy Type Date of Onset Reaction(s) Facility (1 source) patient allergy list reviewed by nurse or physicia Propensity to adverse reactions Comment:Done Blinkbug[employer] Other (1 source) No Known Medication Allergies; Translations: [No Known Medication Allergies] Propensity to adverse reactions (disorder) [facility] Repository Medications Current Medications Medication [...] day Active cholecalciferol 0.125 mg oral capsule (15 sources) Vitamin D Start: 08-16-2024 take 1 [...] Daily, # 90 tab(s), Refills(s) 3, Pharmacy: [facility], 152, cm, 04/19/22 10:18:00 EDT, Height/Length Dosing, 89.2, kg, 04/19/22 10:18:00 EDT, Weight Dosing Start Date: 02/12/23 Status: Ordered Finasteride Acti ve folic acid 1 mg oral tablet (4 sources) Start: 07-31-2025 End: 08-02-2025 take 1 tablet by mouth once daily Folic Acid 1 mg tablet Active 1 MG PO Daily August 02, 2025 5:06pm Complies with drug therapy 24 hr metoprolol succinate 25 mg extended release oral tablet (20 sources) beta-Adrenergic Marilyn Start: 06-01-2025 Metoprolol Succinate 25 mg tablet extended release 24 hr Active 0 .ROUTE .COMPLEX 90 June 01, 2025 8:36pm TAKE 1 TABLET [...] Discontinued 0 .ROUTE .COMPLEX June 07, 2024 9:59am [...] Refill(s) 0 Start Date: 12/20/19 Status: Ordered polysaccharide iron complex 150 mg oral capsule (2 sources) Start: 07-31-2025 Polysaccharide Iron Complex (Ferrex 150) 150 mg iron capsule Active 150 MG PO .QOD 15 30 July 31, 2025 12:00am Complies with drug therapy microencapsulated potassium chloride 10 meq extended release oral tablet (20 sources) Start: 06-02-2025 Potassium Chlo ride 10 mEq tablet,ER particles/crystals Active 0 .ROUTE .COMPLEX 90 June 02, 2025 6:51am TAKE 1 TABLET DAILY Complies with drug therapy Start: 09-20-2024 Potassium Chlo ride (Slm-Euns-Hyz M10) 10 mEq oral tablet, extended release 10 mEq = 1 tab(s), Refills(s) 0 Start Date: 09/20/24 Status: Ordered Start: 03-15-2024 End: 06-02-2025 Potassium Chloride (Klor-Con M10) 10 mEq tablet,ER particles/crystals Discontinued 10 MEQ PO Daily 90 June 30, 2024 10:34am June 02, [...] Start: 08-25-2023 take 1 capsule by mo [facility] once daily tamsulosin 0.4 mg Cap 0.4 mg = 1 cap(s), Oral, Daily, # 90 cap(s), Refills(s) 3, Pharmacy: [facility], 178, cm, 08/25/23 12:26:00 EDT, Height/Length Dosing, 90, kg, 08/25/23 12:26:00 EDT, Weight Dosing Start Date: 08/25/23 Status: Ordered take 1 capsule by mo [facility] every twenty-four hours torsemide 20 mg oral tablet (20 sources) Loop Diuretic Start: 10-25-2024 Torsemide 20 m g tablet Active 0 .ROUTE .COMPLEX October 25, 2024 8:37am TAKE 1 TABLET [...] 8:44am traMADol hydrochloride 50 mg oral tablet (6 sources) Opioid Agonist Start: 04-29-2025 take 1 [...] mg tablet Discontinued 80 MG PO Daily 90 90 September 21, 2024 2:21pm October 05, 2024 3:34pm Start: 04-21-2023 End: 09-21-2024 take 1 tablet by mouth once daily in the evening Atorvastatin 10 mg tablet Discontinued 10 MG PO January 08, 2024 1:00am September 13, 2024 11:44pm FreeTextSig: TAKE 1 TABLET EVERY EVENING; Note: Source Status: Taking; Provider: Jenniffer Izquierdo ( ) doxepin 6 mg oral tablet (9 sources) Tricyclic Antidepressant Start: 10-28-2024 End: 03-18-2025 take 1 tablet by mouth once daily at bedtime as needed for sleep Doxepin 6 mg tablet Discontinued 6 MG PO Daily at bedtime as needed for sleep October 28, 2024 1:00am March 18, 2025 10:32am furosemide 40 mg oral tablet (19 sources) Loop Diuretic Start: 03-15-2024 End: 04-21-2024 [...] Start: 08-25-2023 take 1 capsule by mo ut once daily hydrochlorothiazide 12.5 mg Cap 12.5 mg = 1 cap(s), Oral, Daily, # 90 cap(s), Refills(s) 3, Pharmacy: [facility], 178, cm, 08/25/23 12:26:00 EDT, Height/Length Dosing, 90, kg, 08/25/23 12:26:00 EDT, Weight Dosing Start Date: 08/25/23 Status: Ordered Start: 02-18-2022 take 1 capsule by mo uth once daily hydrochlorothiazide 12.5 mg Cap 12.5 mg = 1 cap(s), Oral, Daily, # 90 cap(s), Refills(s) 3, Pharmacy: [facility], 152, cm, 08/27/21 10:12:00 [...] Coronary arteriosclerosis; Translations: [Atherosclerotic heart disease of [place] coronary artery without angina pectoris] Onset: 09-15-2018 05-17-2019 Chronic Comment on above: CABG x 2014 ,Lexiscan Stress: no fixed or reversible defect - 08/2024 Coronary atherosclerosis and other heart disease (3 sources) Presence of aortocoronary bypass graft; Translations: [Aortocoronary bypass status] 10-26-2024 Episodic Deficiency and other anemia (6 sources) Anemia; Translations: [Anemia, unspecified] 07-29-2025 Episodic [...] sources) H/O: high risk medication; Translations: [Other 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 (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) drug therapy] Episodic Other aftercare (5 [...] and due to atherosclerosis; Translations: [Atherosclerosis of [place] arteries of extremities with intermittent claudication, bilateral legs] Onset: 09-15-2018 Chronic Comment on above: CHING: right 0.9, left 0.8 - 08/2023,CHING: right 0.65, left 0.55 - 08/2024 CHING: right 0.9, left 0.8 - 08/2023,CHING: right 0.65, left 0.55 - 08/2024,s/p left popliteal artery lithotripsy, left popliteal angioplasty/stent, left common femoral artery lithotripsy and angioplasty - 09/2024,s/p right SFA popliteal atherectomy and angioplasty - 10/2024,Re-occlusion of the right femoral artery, experiencing claudication, abnormal CHING w/ exercise Residual codes; unclassified (3 sources) H/O: anticoagulant therapy 05-17-2019 Episodic Residual codes; unclassified (19 sources) Past history of procedure; Translations: [Other specified postprocedural states] 05-06-2024 Episodic Residual codes; unclassified (2 sources) Other specified postprocedural states; Translations: [Other postprocedural status] 05-06-2024 Episodic Screening and history of mental health and substance abuse codes (20 sources) Ex-smoker; Translations: [History of tobacco use] [...] lower back, initial encounter] Episodic Thyroid disorders (9 sources) Subclinical hypothyroidism; Translations: [Other specified hypothyroidism] [...] Onset: 09-18-2018 Other aftercare (5 sources) Other 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 [address] [place] [address] Ultrasound Report Signed Patient: Max Brady MR#: [id number] 11 : 1940 Acct:[id number] Age/Sex: 85 / M ADM Date: 08/18/25 Loc: [facility] Room: Type: [facility] Attending Dr: Jaylon Finnegan MD Ordering Provider: Jaylon Finnegan MD Date of Service: 08/18/25 US/US carotid doppler RT: I65.21 - Occlusion and stenosis of right carotid artery Copies to: Jaylon Finnegan MD CAROTID DUPLEX INDICATION: History of right carotid stenosis and prior carotid artery vascularization PROCEDURE: Color-flow duplex scanning is used to interrogate the extracranial carotid arterial system, as well as vertebral artery. the Right carotid bifurcations show moderate to severe heterogeneous plaque formation. The right proximal internal carotid artery shows a highest peak systolic velocity of 401 cm/s with an end-diastolic velocity of 135 cm/s . The mid internal carotid artery measures 202 cm/s peak systolic with an end diastolic velocity of 76.8 cm/s . The distal segment measures 68.3 cm/s peak systolic and 20.1 cm/s end diastolic. The velocities of the right common carotid artery are 108 cm/s peak systolic and 19.9 cm/s end-diastolic proximally and 82.6 cm/s peak systolic and 19.2 cm/s end-diastolic distally. The peak systolic velocity ratio of the internal to the common carotid artery is 3.71 . The right external carotid artery measures 199 cm/s peak systolic. The right vertebral artery is patent at 73.7 cm/s peak systolic with retrograde flow. US/US carotid doppler RT IMPRESSION: MODERATE TO SEVERE PLAQUE FORMATION IS NOTED BILATERAL EXTRACRANIAL CAROTID ARTERIES. GREATER THAT 70% STENOSIS IS PRESENT IN THE RIGHT INTERNAL CAROTID ARTERY. There is retrograde flow in the right vertebral artery A VASCULAR SURGERY CONSULTATION IS RECOMMENDED FOR FURTHER EVALUATION WITH A CAROTID ARTERIOGRAM or CT angiogram of the head and neck Impression dictated by: Dandre Degroot M.D. 08/18/2025 1:33 PM Dictation Location: [facility] Tech: Karina Black Transcribed By: DANIEL 08/18/25 1333 Dictated By: Dandre Degroot MD 08/18/251330 Signed By: 08/18/25 133 Normal [facility] Glomerular filtration rate ( GFR) estimation in non- AmericanOrdered By: Timbo Baig on 07-30-2025 GFR/1.73 sq M.predicted among non-blacks MDRD (S/P/Bld) [Vol rate/Area] 58 mL/min/{1.73_m2} Low >=60 mL/min/1.73m 2 [facility] Laboratory - Chemistry and C hemistry - challengeOrdered By: Timbo Baig on 07-30-2025 Calcium [Mass/Vol] 8.8 mg/dL 8.5-10.1 [facility] Chloride [Moles/Vol] 107 mmol/L 98-107 [facility] CO2 [Moles/Vol] 26.9 mmol/L 21.0-32.0 [facility] Cobalamin (Vitamin B12) [Mass/Vol] 1006 pg/mL [phone] [facility] Comment on above: Performed at: [address] [id number] Director: Nadir Chavez PhD, Phone: [phone] Creatinine [Mass/Vol] 1.19 mg/dL 0.70-1.30 [facility] Ferritin [Mass/Vol] 49.0 ng/mL 26.0-388.0 [facility] Free T4 [Mass/Vol] 0.94 ng/dL 0.76-1.46 [facility] GFR/1.73 sq M.predicted MDRD (S/P/Bld) [Vol rate/Area] mL/min/{1.73_m2} >=60 mL/min/1.73m 2 [facility] Glucose [Mass/Vol] 109 mg/dL High 74-106 [facility] Potassium [Moles/Vol] 3.8 mmol/L 3.5-5.1 [facility] Sodium [Moles/Vol] 144 mmol/L 136-145 [facility] TSH Qn 5.026 m[IU]/L High 0.358-3.740 [facility] Urea nitrogen [Mass/Vol] 16.0 mg/dL 7.0-18.0 [facility] Urea nitrogen/Creatinine [Mass ratio] 13.4 mg/mg [facility] No Panel InformationOrdered By: Timbo Baig on 07-30-2025 Folate 8.50 ng/mL Low 8.60-58.90 [facility] Serum or plasma anion gap de terminationOrdered By: Timbo Baig on 07-30-2025 Anion gap [Moles/Vol] 13.9 mmol/L [facility] US ankle/arm indiceson 05-12 US ankle/arm indices [facility] [address] [place] [address] Ultrasound Report Signed Patient: Max Brady MR#: [id number] 11 : 1940 Acct:[id number] Age/Sex: 84 / M ADM Date: 05/12/25 Loc: [facility] Room: Type: [facility] Attending Dr: Jaylon Finnegan MD Ordering Provider: Jaylon Finnegan MD Date of Service: 05/12/25 US/US ankle/arm indices: I70.213 - Atherosclerosis of [place] arteries of extremiti... Copies to: Jaylon Finnegan [...] Finnegan MD,FACS,FSVS 05/12/2025 11:51 AM Dictation Location: [place] [address] Tech: Pam Sheehan Transcribed By: DANIEL 05/12/25 1151 Dictated By: Jaylon Finnegan MD 05/12/25 1151 Signed By: 05/12/25 1151 Normal [facility] US carotid doppler BIon 07-0 US carotid doppler BI [facility] [address] [place] [address] Ultrasound Report Signed Patient: aMx Brady MR#: [id number] 11 : 1940 Acct:[id number] Age/Sex: 84 / M ADM Date: 05/12/25 Loc: [facility] Room: Type: [facility] Attending Dr: Jaylon Finnegan MD Ordering [...] Finnegan MD,FACS,FSVS 05/12/2025 11:52 AM Dictation Location: [place] [address] Tech: Merle Donaldson Transcribed By: DANIEL 05/12/25 1152 Dictated By: Jaylon Finnegan MD 05/12/25 1151 Signed By: 05/12/25 1152 Normal [facility] Basophils Auto (Bld) [#/Vol] on 03-25-2025 Basophils (Bld) [#/Vol] 0.0 10 3/uL 0.0-0.1 [facility] Basophils/100 WBC Auto (Bld) on 03-25-2025 Basophils/100 WBC (Bld) 0.5 % 0.2-2.0 [facility] Cholesterol in LDL Calc [Mas s/Vol]on 03-25-2025 Cholesterol in LDL [Mass/Vol] 33.6 mg/dL [facility] Comment on above: <100 mg/dl [id number] 0-129 mg/dl NEAR OR ABOVE [id number] mg/dl BORDERLINE [id number] mg/dl HIGH>190 mg/dl VERY HIGH Cholesterol in VLDL Calc [Ma ss/Vol]on 03-25-2025 Cholesterol in VLDL [Mass/Vol] 14.4 mg/dL [facility] Eosinophils/100 WBC Auto (Bl d)on 03-25-2025 Eosinophils/100 WBC (Bld) 7.7 % High 0.9-7.0 [facility] Erythrocyte distribution wid th Auto (RBC) [Ratio]on 03-25-2025 Erythrocyte distribution width (RBC) [Ratio] 14.4 % 11.0-15.0 [facility] Estimated glomerular filtrat ion rate (GFR) non- Americanon 03-25-2025 GFR/1.73 sq M.predicted among non-blacks MDRD (S/P/Bld) [Vol rate/Area] 51 mL/min/{1.73_m2} Low >=60 mL/min/1.73m 2 [facility] Globulin Calc (S) [Mass/Vol] on 03-25-2025 Globulin (S) [Mass/Vol] 3.3 g/dL [facility] Hematocrit Auto (Bld) [Volum e fraction]on 03-25-2025 Hematocrit (Bld) [Volume fraction] 41.9 % Low 42.0-54.0 [facility] Hemoglobin [Mass/volume] in Bloodon 03-25-2025 Hemoglobin (Bld) [Mass/Vol] 13.7 g/dL Low 14.0-18.0 [facility] Laboratory - Chemistry and C hemistry - challengeon 03-25-2025 Albumin [Mass/Vol] 3.5 g/dL 3.4-5.0 [facility] ALP [Catalytic activity/Vol] 70 U/L 46-116 [facility] ALT [Catalytic activity/Vol] 23 U/L 16-63 [facility] AST [Catalytic activity/Vol] 17 U/L 15-37 [facility] Bilirubin [Mass/Vol] 0.7 mg/dL 0.2-1.0 [facility] Calcium [Mass/Vol] 9.3 mg/dL 8.5-10.1 [facility] Chloride [Moles/Vol] 106 mmol/L 98-107 [facility] Cholesterol [Mass/Vol] 106 mg/dL <=200 [facility] Cholesterol in HDL [Mass/Vol] 58 mg/dL 40-60 [facility] Comment on above: > or =60 mg/dl - LOW CARDIOVASCULAR RISK<40 mg/dl - HIGH CARDIOVASCULAR RISK CO2 [Moles/Vol] 32.9 mmol/L High 21.0-32.0 [facility] Creatinine [Mass/Vol] 1.34 mg/dL High 0.70-1.30 [facility] Free T4 [Mass/Vol] 0.95 ng/dL 0.76-1.46 [facility] GFR/1.73 sq M.predicted MDRD (S/P/Bld) [Vol rate/Area] mL/min/{1.73_m2} >=60 mL/min/1.73m 2 [facility] Glucose [Mass/Vol] 108 mg/dL High 74-106 [facility] Potassium [Moles/Vol] 4.2 mmol/L 3.5-5.1 [facility] Protein [Mass/Vol] 6.8 g/dL 6.4-8.2 [facility] Sodium [Moles/Vol] 144 mmol/L 136-145 [facility] Triglyceride [Mass/Vol] 72 mg/dL <=150 [facility] TSH Qn 4.515 m[IU]/L High 0.358-3.740 [facility] Urea nitrogen [Mass/Vol] 20.0 mg/dL High 7.0-18.0 [facility] Urea nitrogen/Creatinine [Mass ratio] 14.9 mg/mg [facility] Laboratory - Hematology and Cell countson 03-25-2025 Immature granulocytes/100 WBC (Bld) 0.2 % 0.0-0.5 [facility] Leukocytes [#/volume] correc jose j for nucleated erythrocytes in Blood by Automated counon 03-25-2025 WBC corrected for nucl RBC Auto (Bld) [#/Vol] 5.8 10 3/uL 4.0-11.0 [facility] Lymphocytes Auto (Bld) [#/Vo l]on 03-25-2025 Lymphocytes (Bld) [#/Vol] 1.5 10 3/uL 1.2-3.8 [facility] Lymphocytes/100 WBC Auto (Bl d)on 03-25-2025 Lymphocytes/100 WBC (Bld) 25.3 % 20.5-60.0 [facility] MCH Auto (RBC) [Entitic mass ]on 03-25-2025 MCH (RBC) [Entitic mass] 30.6 pg 25.9-34.0 [facility] MCHC Auto (RBC) [Mass/Vol]on 03-25-2025 MCHC (RBC) [Mass/Vol] 32.7 g/dL 29.9-35.2 [facility] MCV Auto (RBC) [Entitic vol] on 03-25-2025 MCV (RBC) [Entitic vol] 93.7 fL 80.0-94.0 [facility] Monocytes Auto (Bld) [#/Vol] on 03-25-2025 Monocytes (Bld) [#/Vol] 0.5 10 3/uL 0.3-0.8 [facility] Monocytes/100 WBC Auto (Bld) on 03-25-2025 Monocytes/100 WBC (Bld) 9.3 % 1.7-12.0 [facility] Neutrophils Auto (Bld) [#/Vo l]on 03-25-2025 Neutrophils (Bld) [#/Vol] 3.3 10 3/uL 1.4-6.5 [facility] Neutrophils/100 WBC Auto (Bl d)on 03-25-2025 Neutrophils/100 WBC (Bld) 57.0 % 43.0-75.0 [facility] No Panel Informationon 03-25 Eosinophils # (Auto) 0.5 10 3/uL 0.0-0.7 [facility] Immature Granulocyte # (Auto) 0.01 10 3/uL 0.00-0.03 [facility] Platelet mean volume Auto (B ld) [Entitic vol]on 03-25-2025 Platelet mean volume (Bld) [Entitic vol] 11.5 fL 9.5-13.5 [facility] Platelets Auto (Bld) [#/Vol] on 03-25-2025 Platelets (Bld) [#/Vol] 197 10 3/uL 150-450 [facility] RBC Auto (Bld) [#/Vol]on RBC (Bld) [#/Vol] 4.47 10 6/uL Low 4.70-6.10 [facility] Serum or plasma albumin/glob ulin mass ratioon 03-25-2025 Albumin/Globulin [Mass ratio] 1.1 {ratio} [facility] Serum or plasma anion gap de terminationon 03-25-2025 Anion gap [Moles/Vol] 9.3 mmol/L [facility] Serum or plasma total choles terol/high density lipoprotein (HDL) cholesterol mass dejah 03-25-2025 Cholesterol.total/Cholest jose elias in HDL [Mass ratio] 1.8 {ratio} [facility] Comment on above: 3.3 - 4.4 LOW RISK4. 4 - 7.1 AVERAGE RISK7.1 - 11.0 MODERATE RISK>11.0 HIGH RISK US art pvr/post Yadi 025 US art pvr/post LE [facility] [place] [place] [address] Ultrasound Report Signed with Addenda Patient: Max Brady MR#: [id number] 11 : 1940 Acct:[id number] Age/Sex: 84 / M ADM Date: 12/07/24 Loc: Room: Type: [facility] Attending Dr: Niya Baker BRANCH ASSISTANT-C Ordering Provider: Niya Baker APRN Date of Service: 12/07/24 US/US art pvr/post LE: I70.213 - Atherosclerosis of [place] arteries of extremiti... Copies to: Niya Baker APRN ADDENDUM 1 The right lower extremity exhibited severe disease and critical limb ischemia with ambulation. The right lower extremity CHING dropped to 0.32 during the exercise study. This is considered severe ischemia. Impression dictated by: Jaylon Finnegan MD12/15/2024 5:07 PM Dictation Location: [place] [address] Addendum Dictated By: Jaylon Finnegan MD Addendum [...] Jaylon Finnegan MD12/08/2024 11:26 AM Dictation Location: [place] [address] Tech: Sugey Diaz Transcribed By: DANIEL 12/08/24 1126 Dictated By: Jaylon Finnegan MD 12/08/24 112 Signed By: 12/08/24 1126 Normal [facility] US UNI ankle/arm indiceson 1 12-20-2023 US UNI ankle/arm indices [facility] [place] [address] Ultrasound Report Signed Patient: Max Brady MR#: [id number] 11 : 1940 Acct:[id number] Age/Sex: 84 / M ADM Date: 10/18/24 Loc: Room: Type: [facility] Attending Dr: Jaylon Finnegan MD Ordering Provider: [...] Ricky Stephens M.D.10/19/2024 10:37 AM Dictation Location: [place] [address] Tech: Pam Sheehan Transcribed By: DANIEL 10/19/24 1037 Dictated By: Ricky Stephens MD 10/19/24 1035 Signed By: 10/19/24 1037 Normal [facility] Blood Urea Nitrogenon 2023 Urea nitrogen [Mass/Vol] 21 mg/dL Normal 06-03 [facility] Comment on above: Performed By: #### C REAT, BUN #### [address] Creatinineon 10-04-2024 Creatinine [Mass/Vol] 1.40 mg/dL High 0.70-1.30 [facility] Comment on above: Performed By: #### C REAT, BUN #### [address] Creatinine Clr Calc Pharmacy 45.56 Normal [facility] Comment on above: Result Comment: PERF ORMED BY: [place] [address] PATHOLOGIST PHARMACEUTICAL OPERATOR DK JONES M.D. Performed By: #### C REAT, BUN #### [address] Estimated GFR 50.182 mL/Min Normal [facility] Comment on above: Performed By: #### C REAT, BUN #### [facility] [address] [place] [id number] [facility] Creatinine [Mass/volume] in Serum or PlasmaOrdered By: Jaylon Finnegan on 10-04-2024 Creatinine [Mass/Vol] Creatinine [Mass/volume] in Serum or Plasma High 0.70-1.30 [facility] No Panel InformationOrdered By: Jaylon Finnegan on 10-04-2024 Estimated GFR (CKD-EPI) 50.182 mL/Min [facility] Creatinine Clearance (Chem 45.56 [facility] US UNI ankle/arm indiceson 1 12-04-2023 US UNI ankle/arm indices [facility] [address] [place] [address] [place] [address] Ultrasound Report Signed Patient: Max Brady MR#: [id number] 11 : 1940 Acct:[id number] Age/Sex: 84 / M ADM Date: 10/04/24 Loc: Room: Type: [facility] Attending Dr: Jaylon Finnegan MD Ordering Provider: [...] Jaylon Finnegan MD10/04/2024 3:03 PM Dictation Location: [place] [address] Tech: Mercedes Bella Transcribed By: DANIEL 10/04/24 1503 Dictated By: Jaylon Finnegan MD 10/04/24 1502 Signed By: 10/04/24 1503 Normal [facility] Urea nitrogen [Mass/volume] in Serum or PlasmaOrdered By: Jaylon Finnegan on 10-04-2024 Urea nitrogen [Mass/Vol] Urea nitrogen [Mass/volume] in Serum or Plasma 06-03 [facility] Urology Office/Clinic Noteon 09-20-2024 Urology [...] [facility] [address], [place] [phone] Additional Instructions: 1 yr w/ KUB Patient Education Kidney Stones, [id number] IBabita, personally scribed for Dr. Loya on 09/20/2024 12:14:24. . Documentation recorded by the scribe, Babita Andrade, accurately reflects the services(s) I performed and decisions made by me. Authenticated by Dr. Loya on 09/20/2024 12:15:52. 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 Normal [facility] Comment on above: Result Comment: Elec tronically Signed By: Salome LOYA MD\.br\Date and Time Signed: 09/20/24 12:15 EST\.br\Electronically Co-Signed By: Babita Andrade\.br\Date and Time Co-Signed: 09/20/24 12:14 EST US art pvr/post Yadi 024 US art pvr/post [facility] Main [place] [id number] Ultrasound Report Signed Patient: Max Brady MR#: [id number] 11 : 1940 Acct:[id number] Age/Sex: 84 / M ADM Date: 08/26/24 Loc: Room: Type: [facility] CLI Attending Dr: Bertha Hutchins DO Ordering Provider: Bertha Hutchins DO Date of Service: 08/26/24 US/US art pvr/post LE: I70.213 - Atherosclerosis of [place] arteries of extremiti... Copies to: Bertha Hutchins DO LOWER EXTREMITY [...] Jaylon Finnegan MD08/27/2024 9:25 AM Dictation Location: [id number] Tech: Ashley Gonzalez Transcribed By: DANIEL 08/27/24924 Dictated By: Jaylon Finnegan MD 08/27/24921 Signed By: 08/27/24924 Normal [facility] NM charito perf SPECT rest stron 08-25-2024 NM charito perf SPECT rest str [facility] [place] [place] [address] Nuclear Medicine Report Signed Patient: Max Brady MR#: [id number] 11 : 1940 Acct:[id number] Age/Sex: 84 / M ADM Date: 08/26/24 [facility]: [facility]: [facility] Dr: Bertha Hutchins DO Copies to: [...] available for comparison. Transcribed By: DUSTIN 08/25/24 8728 Dictated By: Moni Armstrong MD 08/25/24 1744 Signed By: 08/30/24 1220 Normal [facility] STR cardiac stress/lexiscano n 08-25-2024 STR cardiac stress/lexiscan [facility] [place] [address] Cardiac Stress Test Signed Patient: Max Brady MR#: [id number] 11 : 1940 Acct:[id number] Age/Sex: 84 / M ADM Date: 08/26/24 Loc: Room: [facility] Attending Dr: Bertha Hutchins DO Copies to: DO Moni Worthington MD Ordering Provider: Bertha Hutchins DO Date of Service: 08/25/24 STR/STR cardiac stress/lexiscan: I25.10 - Atherosclerotic heart disease of [place] coronary... REFERRING PHYSICIAN: Bertha Hutchins DO REASON [...] 1721 Signed By: 08/30/24 1220 Normal [facility] Estimated glomerular filtrat ion rate (GFR) non- Americanon 04-29-2024 GFR/1.73 sq M.predicted among non-blacks MDRD (S/P/Bld) [Vol rate/Area] 49 mL/min/{1.73_m2} Low >=60 [facility] Laboratory - Chemistry and C hemistry - challengeon 04-29-2024 Calcium [Mass/Vol] 9.2 mg/dL 8.5-10.1 [facility] Chloride [Moles/Vol] 99 mmol/L 98-107 [facility] CO2 [Moles/Vol] 31.3 mmol/L 21.0-32.0 [facility] Creatinine [Mass/Vol] 1.39 mg/dL High 0.70-1.30 [facility] GFR/1.73 sq M.predicted MDRD (S/P/Bld) [Vol rate/Area] 59 mL/min/{1.73_m2} Low >=60 [facility] Glucose [Mass/Vol] 94 mg/dL 74-106 [facility] Natriuretic peptide B (Bld) [Mass/Vol] 98.0 pg/mL <=1800.0 [facility] Potassium [Moles/Vol] 3.0 mmol/L Low 3.5-5.1 [facility] Sodium [Moles/Vol] 140 mmol/L 136-145 [facility] Urea nitrogen [Mass/Vol] 30.0 mg/dL High 7.0-18.0 [facility] Urea nitrogen/Creatinine [Mass ratio] 21.6 mg/mg [facility] Serum or plasma anion gap de terminationon 04-29-2024 Anion gap [Moles/Vol] 12.7 mmol/L [facility] Laboratory - Chemistry and C hemistry - challengeon 04-17-2024 Free T4 [Mass/Vol] 0.79 ng/dL 0.76-1.46 [facility] TSH Qn 5.269 m[IU]/L High 0.358-3.740 [facility] No Panel Informationon 04-17 Total Triiodothyronine 97 ng/dL 71-180 [facility] Comment on above: Performed at: [place] [id number] Director: Nadir Chavez PhD, Phone: [phone] Basophils Auto (Bld) [#/Vol] on 04-07-2024 Basophils (Bld) [#/Vol] 0.0 10 3/uL 0.0-0.1 [facility] Basophils/100 WBC Auto (Bld) on 04-07-2024 Basophils/100 WBC (Bld) 0.6 % 0.2-2.0 [facility] Cholesterol in LDL Calc [Mas s/Vol]on 04-07-2024 Cholesterol in LDL [Mass/Vol] 67.2 mg/dL [facility] Comment on above: <100 mg/dl [id number] 0-129 mg/dl NEAR OR ABOVE [id number] mg/dl BORDERLINE [id number] mg/dl HIGH>190 mg/dl VERY HIGH Cholesterol in VLDL Calc [Ma ss/Vol]on 04-07-2024 Cholesterol in VLDL [Mass/Vol] 23.8 mg/dL [facility] Eosinophils/100 WBC Auto (Bl d)on 04-07-2024 Eosinophils/100 WBC (Bld) 9.8 % High 0.9-7.0 [facility] Erythrocyte distribution wid th Auto (RBC) [Ratio]on 04-07-2024 Erythrocyte distribution width (RBC) [Ratio] 14.0 % 11.0-15.0 [facility] Estimated glomerular filtrat ion rate (GFR) non- Americanon 04-07-2024 GFR/1.73 sq M.predicted among non-blacks MDRD (S/P/Bld) [Vol rate/Area] 55 mL/min/{1.73_m2} Low >=60 [facility] Globulin Calc (S) [Mass/Vol] on 04-07-2024 Globulin (S) [Mass/Vol] 3.8 g/dL [facility] Hematocrit Auto (Bld) [Volum e fraction]on 04-07-2024 Hematocrit (Bld) [Volume fraction] 44.7 % 42.0-54.0 [facility] Hemoglobin [Mass/volume] in Bloodon 04-07-2024 Hemoglobin (Bld) [Mass/Vol] 14.3 g/dL 14.0-18.0 [facility] Laboratory - Chemistry and C hemistry - challengeon 04-07-2024 Albumin [Mass/Vol] 3.4 g/dL 3.4-5.0 [facility] ALP [Catalytic activity/Vol] 67 U/L 46-116 [facility] ALT [Catalytic activity/Vol] 22 U/L 16-63 [facility] AST [Catalytic activity/Vol] 20 U/L 15-37 [facility] Bilirubin [Mass/Vol] 1.0 mg/dL 0.2-1.0 [facility] Calcium [Mass/Vol] 8.9 mg/dL 8.5-10.1 [facility] Chloride [Moles/Vol] 103 mmol/L 98-107 [facility] Cholesterol [Mass/Vol] 150 mg/dL <=200 [facility] Cholesterol in HDL [Mass/Vol] 59 mg/dL 40-60 [facility] Comment on above: > or =60 mg/dl - LOW CARDIOVASCULAR RISK<40 mg/dl - HIGH CARDIOVASCULAR RISK CO2 [Moles/Vol] 29.8 mmol/L 21.0-32.0 [facility] Creatinine [Mass/Vol] 1.26 mg/dL 0.70-1.30 [facility] GFR/1.73 sq M.predicted MDRD (S/P/Bld) [Vol rate/Area] mL/min/{1.73_m2} >=60 [facility] Glucose [Mass/Vol] 109 mg/dL High 74-106 [facility] Natriuretic peptide B (Bld) [Mass/Vol] 104.0 pg/mL <=1800.0 [facility] Potassium [Moles/Vol] 3.4 mmol/L Low 3.5-5.1 [facility] Protein [Mass/Vol] 7.2 g/dL 6.4-8.2 [facility] Sodium [Moles/Vol] 140 mmol/L 136-145 [facility] Triglyceride [Mass/Vol] 119 mg/dL <=150 [facility] TSH Qn 8.383 m[IU]/L High 0.358-3.740 [facility] Urea nitrogen [Mass/Vol] 21.0 mg/dL High 7.0-18.0 [facility] Urea nitrogen/Creatinine [Mass ratio] 16.7 mg/mg [facility] Laboratory - Hematology and Cell countson 04-07-2024 Immature granulocytes/100 WBC (Bld) 0.4 % 0.0-0.5 [facility] Leukocytes [#/volume] correc jose j for nucleated erythrocytes in Blood by Automated counon 04-07-2024 WBC corrected for nucl RBC Auto (Bld) [#/Vol] 5.2 10 3/uL 4.0-11.0 [facility] Lymphocytes Auto (Bld) [#/Vo l]on 04-07-2024 Lymphocytes (Bld) [#/Vol] 1.5 10 3/uL 1.2-3.8 [facility] Lymphocytes/100 WBC Auto (Bl d)on 04-07-2024 Lymphocytes/100 WBC (Bld) 28.6 % 20.5-60.0 [facility] MCH Auto (RBC) [Entitic mass ]on 04-07-2024 MCH (RBC) [Entitic mass] 30.2 pg 25.9-34.0 [facility] MCHC Auto (RBC) [Mass/Vol]on 04-07-2024 MCHC (RBC) [Mass/Vol] 32.0 g/dL 29.9-35.2 [facility] MCV Auto (RBC) [Entitic vol] on 04-07-2024 MCV (RBC) [Entitic vol] 94.5 fL High 80.0-94.0 [facility] Monocytes Auto (Bld) [#/Vol] on 04-07-2024 Monocytes (Bld) [#/Vol] 0.6 10 3/uL 0.3-0.8 [facility] Monocytes/100 WBC Auto (Bld) on 04-07-2024 Monocytes/100 WBC (Bld) 11.7 % 1.7-12.0 [facility] Neutrophils Auto (Bld) [#/Vo l]on 04-07-2024 Neutrophils (Bld) [#/Vol] 2.6 10 3/uL 1.4-6.5 [facility] Neutrophils/100 WBC Auto (Bl d)on 04-07-2024 Neutrophils/100 WBC (Bld) 48.9 % 43.0-75.0 [facility] No Panel Informationon 04-07 Eosinophils # (Auto) 0.5 10 3/uL 0.0-0.7 [facility] Immature Granulocyte # (Auto) 0.02 10 3/uL 0.00-0.03 [facility] Platelet mean volume Auto (B ld) [Entitic vol]on 04-07-2024 Platelet mean volume (Bld) [Entitic vol] 11.2 fL 9.5-13.5 [facility] Platelets Auto (Bld) [#/Vol] on 04-07-2024 Platelets (Bld) [#/Vol] 196 10 3/uL 150-450 [facility] RBC Auto (Bld) [#/Vol]on RBC (Bld) [#/Vol] 4.73 10 6/uL 4.70-6.10 [facility] Serum or plasma albumin/glob ulin mass ratioon 04-07-2024 Albumin/Globulin [Mass ratio] 0.9 {ratio} [facility] Serum or plasma anion gap de terminationon 04-07-2024 Anion gap [Moles/Vol] 10.6 mmol/L [facility] Serum or plasma total choles terol/high density lipoprotein (HDL) cholesterol mass dejah 04-07-2024 Cholesterol.total/Cholest jose elias in HDL [Mass ratio] 2.5 {ratio} [facility] Comment on above: 3.3 - 4.4 LOW [...] potassium with it. *Follow-up with vascular in [place] for your leg weakness and pain Normal [facility] Office Visiton 01-15-2024 Follow-up visit [id number] Max Brady 1940 M Date Provider Department Center 01/15/2024 TITA STEWART Family History Problem Relation Age of Onset No Known Problems Mother No Known Problems Father Family Status - Relation Status Age at Mother Father Level of Service:07212 [place] OFFICE/OUTPATIENT ESTABLISHED MOD MDM 30 MIN Reason for Visit and Comments: Coronary Artery Disease [187] Congestive Heart Failure [127] Hypertension [582989] Hyperlipidemia [182] Normal [facility] 36on 01-05-2024 36 Regarding labs from 12/26/2023: SANG Dumont MA Please let him know his labs show his kidney function is stable. Continue current meds. Thanks LM on patient's VM. Normal [facility] Estimated glomerular filtrat ion rate (GFR) non- Americanon 12-26-2023 GFR/1.73 sq M.predicted among non-blacks MDRD (S/P/Bld) [Vol rate/Area] 58 mL/min/{1.73_m2} >=60 [facility] Laboratory - Chemistry and C hemistry - challengeon 12-26-2023 Calcium [Mass/Vol] 9.3 mg/dL 8.5-10.1 [facility] Chloride [Moles/Vol] 101 mmol/L 98-107 [facility] CO2 [Moles/Vol] 28.4 mmol/L 21.0-32.0 [facility] Creatinine [Mass/Vol] 1.21 mg/dL 0.70-1.30 [facility] GFR/1.73 sq M.predicted MDRD (S/P/Bld) [Vol rate/Area] mL/min/{1.73_m2} >=60 [facility] Glucose [Mass/Vol] 117 mg/dL 74-106 [facility] Potassium [Moles/Vol] 3.9 mmol/L 3.5-5.1 [facility] Sodium [Moles/Vol] 138 mmol/L 136-145 [facility] Urea nitrogen [Mass/Vol] 19.0 mg/dL 7.0-18.0 [facility] Urea nitrogen/Creatinine [Mass ratio] 15.7 mg/mg [facility] Serum or plasma anion gap de terminationon 12-26-2023 Anion gap [Moles/Vol] 12.5 mmol/L [facility] 37on 12-17-2023 37 *Start taking lasix 40mg daily along with potassium supplements. *Have labs done around 12/26/2023. *Monitor your weight daily, first thing in the morning after you use the bathroom and before you eat breakfast. *Try to not drink more than 2000ml of fluids a day *Limit sodium/salt intake Normal [facility] Office Visiton 12-17-2023 Follow-up visit [id number] Max Brady 1940 M Date Provider Department Center 12/17/2023 Manoj-TITA JJ Family History Problem Relation Age of Onset No Known Problems Mother No Known Problems Father Family Status - Relation Status Age at Mother Father Level of Service:03720 [place] OFFICE/OUTPATIENT ESTABLISHED MOD MDM 30 MIN Normal [facility] Laboratory - Microbiology an d Antimicrobial susceptibilityOrdered By: Aury Ann on 04-12-2023 S. pyogenes Ag IA Ql (Unsp spec) [facility] No Panel InformationOrdered By: Aury Ann on 04-12-2023 Flu B [facility] CBC AUTO DIFFon 09-25-2022 BASO # 0.0 103/ul Normal 0.0-0.1 [facility] Comment on above: Performed By: #### C BC #### [facility] [address] [place] [address] [address] Giacomo Mace Basophils/100 WBC (Bld) 0.5 % Normal 0.2-2.0 [facility] Comment on above: Performed By: #### C BC #### [facility] [address] [place] [address] [address] Giacomo Mace EO # 0.4 103/ul Normal 0.0-0.7 [facility] Comment on above: Performed By: #### C BC #### [facility] [address] [place] [address] [address] Giacomo Mace Eosinophils/100 WBC (Bld) 7.0 % Normal 0.9-7.0 [facility] Comment on above: Performed By: #### C BC #### [facility] [address] [place] [address] [address] Giacomo Mace Erythrocyte distribution width (RBC) [Ratio] 14.6 % Normal 11.0-15.0 [facility] Comment on above: Performed By: #### C BC #### [facility] [address] [place] [address] [address] Giacomo Mace Hematocrit (Bld) [Volume fraction] 46.9 % Normal 42.0-54.0 [facility] Comment on above: Performed By: #### C BC #### [facility] [address] [place] [address] [address] Giacomo Mace Hemoglobin (Bld) [Mass/Vol] 15.1 g/dL Normal 14.0-18.0 [facility] Comment on above: Performed By: #### C BC #### [facility] [address] [place] [address] [address] Giacomo Mace IG # 0.02 10e3/ul Normal 0.00-0.03 [facility] Comment on above: Performed By: #### C BC #### [facility] [address] [place] [address] Dr. Giacomo Mace IG % 0.4 % Normal 0.0-0.5 [facility] Comment on above: Performed By: #### C BC #### [facility] [address] [place] [address] Dr. Giacomo Mace LYMPH # 1.4 103/ul Normal 1.2-3.8 [facility] Comment on above: Performed By: #### C BC #### [facility] [address] [place] [address] Dr. Giacomo Mace Lymphocytes/100 WBC (Bld) 25.3 % Normal 20.5-60.0 [facility] Comment on above: Performed By: #### C BC #### [facility] [address] [place] [address] Dr. Giacomo Mace MANUAL DIFF REQ NO Normal [facility] Comment on above: Performed By: #### C BC #### [facility] [address] [place] [address] Dr. Giacomo Mace MCH (RBC) [Entitic mass] 29.6 pg Normal 25.9-34.0 [facility] Comment on above: Performed By: #### C BC #### [facility] [address] [place] [address] Dr. Giacomo Mace MCHC (RBC) [Mass/Vol] 32.2 g/dL Normal 29.9-35.2 [facility] Comment on above: Performed By: #### C BC #### [facility] [address] [place] [address] Dr. Giacomo Mace MCV (RBC) [Entitic vol] 92.0 fL Normal 80.0-94.0 [facility] Comment on above: Performed By: #### C BC #### [facility] [address] [place] [address] Dr. Giacomo Mace MONO # 0.6 103/ul Normal 0.3-0.8 [facility] Comment on above: Performed By: #### C BC #### [facility] [address] [place] [address] [address] Giacomo Mace Monocytes/100 WBC (Bld) 10.4 % Normal 1.7-12.0 [facility] Comment on above: Performed By: #### C BC #### [facility] [address] [place] [address] [address] Giacomo Mace NEUT # 3.2 103/ul Normal 1.4-6.5 [facility] Comment on above: Performed By: #### C BC #### [facility] [address] [place] [address] Dr. Giacomo Mace Neutrophils/100 WBC (Bld) 56.4 % Normal 43.0-75.0 [facility] Comment on above: Performed By: #### C BC #### [facility] [address] [place] [address] Dr. Giacomo Mace Platelet mean volume (Bld) [Entitic vol] 10.5 fL Normal 9.5-13.5 [facility] Comment on above: Performed By: #### C BC #### [facility] [address] [place] [address] Dr. Giacomo Mace PLT 227 103/ul Normal 150-450 [facility] Comment on above: Performed By: #### C BC #### [facility] [address] [place] [address] Dr. Giacomo Mace RBC 5.10 106/ul Normal 4.70-6.10 [facility] Comment on above: Performed By: #### C BC #### [facility] [address] [place] [address] Dr. Giacomo Mace WBC 5.7 103/ul Normal 4.0-11.0 [facility] Comment on above: Performed By: #### C BC #### [facility] [address] [place] [address] Dr. Giacomo Mace LIPID PROFILEon 09-25-2022 CHOL-HDL RATIO NORM SEE BELOW Normal [facility] Comment on above: Result Comment: 3.3 - 4.4 LOW RISK 4.4 - 7.1 AVERAGE RISK 7.1 - 11.0 MODERATE RISK >11.0 HIGH RISK Performed By: #### B MP, LIPID #### [facility] [address] [place] [address] [address] Giacomo Mace Cholesterol [Mass/Vol] 219 mg/dL Critically high <=200 [facility] Comment on above: Performed By: #### B MP, LIPID #### [facility] [address] [place] [address] [address] Giacomo Mace Cholesterol in HDL [Mass/Vol] 61 mg/dL Critically high 40-60 [facility] Comment on above: Performed By: #### B MP, LIPID #### [facility] [address] [place] [address] [address] Giacomo Mace Cholesterol in LDL [Mass/Vol] 136.4 mg/dL Normal [facility] Comment on above: Performed By: #### B MP, LIPID #### [facility] [address] [place] [address] Dr. Giacomo Mace Cholesterol.total/Cholest jose elias in HDL [Mass ratio] 3.6 {ratio} Normal [facility] Comment on above: Performed By: #### B MP, LIPID #### [facility] [address] [place] [address] Dr. Giacomo Maec HDL NORMAL > or = 60 mg/dl - LOW CARDIOVASCULAR RISK <40 mg/dl - HIGH CARDIOVASCULAR RISK Normal [facility] Comment on above: Performed By: #### B MP, LIPID #### [facility] [address] [place] [address] Dr. Giacomo Mace LDL CALC NORMAL SEE BELOW Normal [facility] Comment on above: Result Comment: <100 mg/dl OPTIMAL 100 - 129 mg/dl NEAR OR ABOVE OPTIMAL 130 - 159 mg/dl BORDERLINE HIGH 160 - 189 mg/dl HIGH >190 mg/dl VERY HIGH Performed By: #### B MP, LIPID #### [facility] [address] [place] [address] Dr. Giacomo Mace Triglyceride [Mass/Vol] 108 mg/dL Normal <=150 [facility] Comment on above: Performed By: #### B MP, LIPID #### [facility] [address] [place] [address] Dr. Giacomo Mace VLDL CALC 21.6 mg/dL Normal [facility] Comment on above: Performed By: #### B MP, LIPID #### [facility] [address] [place] [address] Dr. Giacomo Mace PROF CHEM 8 (BAS METB)on Anion gap [Moles/Vol] 9.6 mmol/L Normal [facility] Comment on above: Performed By: #### B MP, LIPID #### [facility] [address] [place] [address] [address] Giacomo aMce Calcium [Mass/Vol] 9.3 mg/dL Normal 8.5-10.1 [facility] Comment on above: Performed By: #### B MP, LIPID #### [facility] [address] [place] [address] Dr. Giacomo Mace Chloride [Moles/Vol] 104 mmol/L Normal 98-107 [facility] Comment on above: Performed By: #### B MP, LIPID #### [facility] [address] [place] [address] Dr. Giacomo Mace CO2 [Moles/Vol] 27.8 mmol/L Normal 21.0-32.0 [facility] Comment on above: Performed By: #### B MP, LIPID #### [facility] [address] [place] [address] Dr. Giacomo Mace Creatinine [Mass/Vol] 1.08 mg/dL Normal 0.70-1.30 [facility] Comment on above: Performed By: #### B MP, LIPID #### [facility] [address] [place] [address] Dr. Giacomo Mace EGFR-AF CITIZEN [place] >60 Normal >=60 [facility] Comment on above: Performed By: #### B MP, LIPID #### [facility] [address] [place] [address] Dr. Giacomo Mace EGFR-NON AF CITIZEN OF [place] >60 Normal >=60 [facility] Comment on above: Performed By: #### B MP, LIPID #### [facility] [address] [place] [address] [address] Giacomo Mace Glucose [Mass/Vol] 111 mg/dL Critically high 74-106 [facility] Comment on above: Performed By: #### B MP, LIPID #### [facility] [address] [address] [address] Giacomo Mace Potassium [Moles/Vol] 4.4 mmol/L Normal 3.5-5.1 [facility] Comment on above: Performed By: #### B MP, LIPID #### [facility] [address] [address] [address] Giacomo Mace Sodium [Moles/Vol] 137 mmol/L Normal 136-145 [facility] Comment on above: Performed By: #### B MP, LIPID #### [facility] [address] [address] [address] Giacomo Mace Urea nitrogen [Mass/Vol] 27.0 mg/dL Critically high 7.0-18 .0 [facility] Comment on above: Performed By: #### B MP, LIPID #### [facility] [address] [address] [address] Giacomo Mace Urea nitrogen/Creatinine [Mass ratio] 25.0 mg/mg Normal [facility] Comment on above: Performed By: #### B MP, LIPID #### [facility] [address] [address] [address] Giacomo Mace ECHOCARDIO M/2D COMPLETEon 0 07-09-2022 ECHOCARDIO M/2D COMPLETE Patient: MAX BRADY Exam Date: 07/09/2022 : 1940 Gender:M Ordering : TITA JJ [facility] Admission #: [id number] Family : DR TIMBO BAIG D.O. Order #: [id number] CLICK HERE TO VIEW EXAM ECHOCARDIOGRAM REPORT [...] Davis M.D. on 07/10/2022 at 14:46 Normal [facility] CPKon 04-27-2022 CK [Catalytic activity/Vol] 96 U/L Normal 39-308 [facility] Comment on above: Performed By: #### C RP, CK #### [facility] [address] [address] [address] Giacomo Mace CRPon 04-27-2022 CRP [Mass/Vol] mg/L Normal <=1.0 [facility] Comment on above: Performed By: #### C RP, CK #### [facility] [address] [address] [address] Giacomo Mace ELECTROLYTESon 04-18-2022 Anion gap [Moles/Vol] 11.8 mmol/L Normal [facility] [facility] Comment on above: Performed By: #### E LEC #### [facility] [address] [address] [address] Giacomo Mace Chloride [Moles/Vol] 104 mmol/L Normal 98-107 [facility] Comment on above: Performed By: #### E LEC #### [facility] [address] [place] [address] Dr. Giacomo Mace CO2 [Moles/Vol] 27.5 mmol/L Normal 21.0-32.0 [facility] Comment on above: Performed By: #### E LEC #### [facility] [address] [place] [address] Dr. Giacomo Mace Potassium [Moles/Vol] 4.3 mmol/L Normal 3.5-5.1 [facility] Comment on above: Performed By: #### E LEC #### [facility] [address] [place] [address] Dr. Giacomo Mace Sodium [Moles/Vol] 139 mmol/L Normal 136-145 [facility] Comment on above: Performed By: #### E LEC #### [facility] [address] [address] [address] Giacomo Mace XR KUB 1 VIEWon [...] by: IVY DOMINGUEZ Date: 2022-04-18 08:04 Normal [facility] Vital Signs Date Time Vital Sign Value Performing Clinician Facility 08-18-2025 10:51-0400 Body height 177.8 cm Timbo Ball DO Work Phone: [facility] 08-18-2025 10:51-0400 Body mass index (BMI) [Ratio] 26.5 kg/m2 Timbo Ball DO Work Phone: [facility] 08-18-2025 10:51-0400 Body temperature 97.8 [degF] Timbo Ball DO Work Phone: [facility] 08-18-2025 10:51-0400 Body weight 83.91 kg Timbo Ball DO Work Phone: [facility] 08-18-2025 10:51-0400 Diastolic blood pressure 62 mm[Hg] Timbo Ball DO Work Phone: [facility] 08-18-2025 10:51-0400 Heart rate 67 /min Timbo Ball DO Work Phone: [facility] 08-18-2025 10:51-0400 Respiratory rate 16 /min Timbo Ball DO Work Phone: [facility] 08-18-2025 10:51-0400 SaO2% (BldA) [Mass fraction] 97 % Timbo Ball DO Work Phone: [facility] 08-18-2025 10:51-0400 Systolic blood pressure 110 mm[Hg] Timbo Ball DO Work Phone: [facility] 07-29-2025 10:06-0400 Body height 177.8 cm Timbo Ball DO Work Phone: [facility] 07-29-2025 10:06-0400 Body mass index (BMI) [Ratio] 27.4 kg/m2 Timbo Ball DO Work Phone: [facility] 07-29-2025 10:06-0400 Body weight 86.8 kg Timbo Ball DO Work Phone: [facility] 07-29-2025 10:06-0400 Diastolic blood pressure 67 mm[Hg] Timbo Ball DO Work Phone: [facility] 07-29-2025 10:06-0400 Heart rate 72 /min Timbo Ball DO Work Phone: [facility] 07-29-2025 10:06-0400 Respiratory rate 12 /min Timbo Ball DO Work Phone: [facility] 07-29-2025 10:06-0400 Systolic blood pressure 122 mm[Hg] Timbo Ball DO Work Phone: [facility] 05-12-2025 11:18-0400 Diastolic blood pressure 68 mm[Hg] Timbo Ball DO Work Phone: [facility] 05-12-2025 11:18-0400 Systolic blood pressure 90 mm[Hg] Timbo Ball DO Work Phone: [facility] 05-12-2025 11:07-0400 Body height 177.8 cm Timbo Ball DO Work Phone: [facility] 05-12-2025 11:07-0400 Body mass index (BMI) [Ratio] 27.5 kg/m2 Timbo Ball DO Work Phone: [facility] 05-12-2025 11:07-0400 Body temperature 98.1 [degF] Timbo Ball DO Work Phone: [facility] 05-12-2025 11:07-0400 Body weight 87.08 kg Timbo Ball DO Work Phone: [facility] 05-12-2025 11:07-0400 Heart rate 51 /min Timbo Ball DO Work Phone: [facility] 05-12-2025 11:07-0400 SaO2% (BldA) [Mass fraction] 99 % Timbo Ball DO Work Phone: [facility] 03-18-2025 10:15-0400 Body height 177.8 cm Timbo Ball DO Work Phone: [facility] 03-18-2025 10:15-0400 Body mass index (BMI) [Ratio] 27.6 kg/m2 Timbo Ball DO Work Phone: [facility] 03-18-2025 10:150400 Body weight 87.14 kg Timbo Ball DO Work Phone: [facility] 03-18-2025 10:15-0400 Diastolic blood pressure 66 mm[Hg] Timbo Ball DO Work Phone: [facility] 03-18-2025 10:15-0400 Heart rate 76 /min Timbo Ball DO Work Phone: [facility] 03-18-2025 10:15-0400 Respiratory rate 12 /min Timbo Ball DO Work Phone: [facility] 03-18-2025 10:15-0400 Systolic blood pressure 118 mm[Hg] Timbo Ball DO Work Phone: [facility] 12-29-2024 10:21-0500 Body height 177.8 cm Timbo Ball DO Work Phone: [facility] 12-29-2024 10:21-0500 Body mass index (BMI) [Ratio] 27.2 kg/m2 Timbo Ball DO Work Phone: [facility] 12-29-2024 10:21-0500 Body temperature 96.1 [degF] Timbo Ball DO Work Phone: [facility] 12-29-2024 10:21-0500 Body weight 86.18 kg Timbo Ball DO Work Phone: [facility] 12-29-2024 10:21-0500 Diastolic blood pressure 60 mm[Hg] Timbo Ball DO Work Phone: [facility] 12-29-2024 10:21-0500 Heart rate 47 /min Timbo Ball DO Work Phone: [facility] 12-29-2024 10:21-0500 SaO2% (BldA) [Mass fraction] 96 % Timbo Ball DO Work Phone: [facility] 12-29-2024 10:21-0500 Systolic blood pressure 102 mm[Hg] Timbo Ball DO Work Phone: [facility] 11-25-2024 10:32-0500 Body height 177.8 cm Timbo Ball DO Work Phone: [facility] 11-25-2024 10:32-0500 Body mass index (BMI) [Ratio] 28.1 kg/m2 Timbo Ball DO Work Phone: [facility] 11-25-2024 10:32-0500 Body temperature 97.8 [degF] Timbo Ball DO Work Phone: [facility] 11-25-2024 10:32-0500 Body weight 88.9 kg Timbo Ball DO Work Phone: [facility] 11-25-2024 10:32-0500 Diastolic blood pressure 66 mm[Hg] Timbo Ball DO Work Phone: [facility] 11-25-2024 10:32-0500 Heart rate 74 /min Timbo Ball DO Work Phone: [facility] 11-25-2024 10:32-0500 Systolic blood pressure 124 mm[Hg] Timbo Ball DO Work Phone: [facility] 10-28-2024 15:02-0500 Body height 177.8 cm Timbo Ball DO Work Phone: [facility] 10-28-2024 15:02-0500 Body mass index (BMI) [Ratio] 28.1 kg/m2 Timbo Ball DO Work Phone: [facility] 10-28-2024 15:02-0500 Body weight 88.96 kg Timbo Ball DO Work Phone: [facility] 10-28-2024 15:02-0500 Diastolic blood pressure 78 mm[Hg] Timbo Ball DO Work Phone: [facility] 10-28-2024 15:02-0500 Heart rate 69 /min Timbo Ball DO Work Phone: [facility] 10-28-2024 15:02-0500 Respiratory rate 12 /min Timbo Ball DO Work Phone: [facility] 10-28-2024 15:02-0500 Systolic blood pressure 123 mm[Hg] Timbo Ball DO Work Phone: [facility] 10-26-2024 09:00-0500 Body height 177.8 cm Timbo Ball DO Work Phone: [facility] 10-26-2024 09:00-0500 Body mass index (BMI) [Ratio] 28.3 kg/m2 Timbo Ball DO Work Phone: [facility] 10-26-2024 09:00-0500 Body weight 89.35 kg Timbo Ball DO Work Phone: [facility] 10-26-2024 09:00-0500 Diastolic blood pressure 70 mm[Hg] Timbo Ball DO Work Phone: [facility] 10-26-2024 09:00-0500 Heart rate 73 /min Timbo Ball DO Work Phone: [facility] 10-26-2024 09:00-0500 Respiratory rate 18 /min Timbo Ball DO Work Phone: [facility] 10-26-2024 09:00-0500 SaO2% (BldA) [Mass fraction] 96 % Timbo Ball DO Work Phone: [facility] 10-26-2024 09:00-0500 Systolic blood pressure 120 mm[Hg] Timbo Ball DO Work Phone: [facility] 10-18-2024 13:22-0500 Diastolic blood pressure 65 mm[Hg] Timbo Ball DO Work Phone: [facility] 10-18-2024 13:22-0500 Heart rate 60 /min Timbo Ball DO Work Phone: [facility] 10-18-2024 13:22-0500 Respiratory rate 16 /min Timbo Ball DO Work Phone: [facility] 10-18-2024 13:22-0500 SaO2% (BldA) [Mass fraction] 97 % Timbo Ball DO Work Phone: [facility] 10-18-2024 13:22-0500 Systolic blood pressure 110 mm[Hg] Timbo Ball DO Work Phone: [facility] 10-18-2024 11:10-0500 Inhaled oxygen flow rate 4 L/min Timbo Ball DO Work Phone: [facility] 10-18-2024 09:08-0500 Body height 177.8 cm Timbo Ball DO Work Phone: [facility] 10-18-2024 09:08-0500 Body weight 88 kg Timbo Ball DO Work Phone: [facility] 10-04-2024 11:45-0500 Diastolic blood pressure 62 mm[Hg] Timbo Ball DO Work Phone: [facility] 10-04-2024 11:45-0500 Heart rate 60 /min Timbo Ball DO Work Phone: [facility] 10-04-2024 11:45-0500 Respiratory rate 16 /min Timbo Ball DO Work Phone: [facility] 10-04-2024 11:45-0500 SaO2% (BldA) [Mass fraction] 95 % Timbo Ball DO Work Phone: [facility] 10-04-2024 11:45-0500 Systolic blood pressure 99 mm[Hg] Timbo Ball DO Work Phone: [facility] 10-04-2024 09:30-0500 Inhaled oxygen flow rate 4 L/min Timbo Ball DO Work Phone: [facility] 10-04-2024 07:36-0500 Body height 177.8 cm Timbo Ball DO Work Phone: [facility] 10-04-2024 07:36-0500 Body weight 88.45 kg Timbo Ball DO Work Phone: [facility] 09-20-2024 11:23-0500 Blood Pressure Location Salomealeksandr LOYA [facility] 09-20-2024 11:23-0500 Diastolic blood pressure 64 mm[Hg] Salomealeksandr LOYA [facility] 09-20-2024 11:23-0500 Heart rate 67 /min Salomealeksandr LOYA [facility] 09-20-2024 11:23-0500 Respiratory rate 18 /min Salomealeksandr LOYA [facility] 09-20-2024 11:23-0500 Systolic blood pressure 97 mm[Hg] Salomealeksandr LOYA [facility] 08-31-2024 11:00-0400 Body height 177.8 cm DO Timbo Ball Work Phone: [facility] 08-31-2024 11:00-0400 Body mass index (BMI) [Ratio] 28.5 kg/m2 DO Timbo Ball Work Phone: [facility] 08-31-2024 11:00-0400 Body weight 90.43 kg DO Timbo Ball Work Phone: [facility] 08-31-2024 11:00-0400 Diastolic blood pressure 79 mm[Hg] DO Timbo Ball Work Phone: [facility] 08-31-2024 11:00-0400 Heart rate 69 /min DO Timbo Ball Work Phone: [facility] 08-31-2024 11:00-0400 Respiratory rate 12 /min DO Timbo Ball Work Phone: [facility] 08-31-2024 11:00-0400 Systolic blood pressure 116 mm[Hg] DO Timbo Ball Work Phone: [facility] 08-25-2024 09:46-0400 Diastolic blood pressure 79 mm[Hg] DO Timbo Ball Work Phone: [facility] 08-25-2024 09:46-0400 Heart rate 68 /min DO Timbo Ball Work Phone: [facility] 08-25-2024 09:46-0400 Systolic blood pressure 160 mm[Hg] DO Timbo Ball Work Phone: [facility] 08-16-2024 14:15-0400 Body height 177.8 cm [facility] 08-16-2024 14:15-0400 Body mass index (BMI) [Ratio] 28.4 kg/m2 [facility] 08-16-2024 14:15-0400 Body weight 89.81 kg [facility] 08-16-2024 14:15-0400 Diastolic blood pressure 80 mm[Hg] [facility] 08-16-2024 14:15-0400 Heart rate 71 /min [facility] 08-16-2024 14:15-0400 Respiratory rate 18 /min [facility] 08-16-2024 14:15-0400 SaO2% (BldA) [Mass fraction] 94 % [facility] 08-16-2024 14:15-0400 Systolic blood pressure 138 mm[Hg] [facility] 06-30-2024 10:03-0400 Body height 177.8 cm DO Timbo Ball Work Phone: [facility] 06-30-2024 10:03-0400 Body mass index (BMI) [Ratio] 28.5 kg/m2 DO Timbo Ball Work Phone: [facility] 06-30-2024 10:03-0400 Body weight 90.43 kg DO Timbo Ball Work Phone: [facility] 06-30-2024 10:03-0400 Diastolic blood pressure 73 mm[Hg] DO Timbo Ball Work Phone: [facility] 06-30-2024 10:03-0400 Heart rate 80 /min DO Timbo Ball Work Phone: [facility] 06-30-2024 10:03-0400 Respiratory rate 12 /min DO Timbo Ball Work Phone: [facility] 06-30-2024 10:03-0400 Systolic blood pressure 128 mm[Hg] DO Timbo Ball Work Phone: [facility] 05-06-2024 12:38-0400 Body height 177.8 cm DO Timbo Ball Work Phone: [facility] 05-06-2024 12:38-0400 Body mass index (BMI) [Ratio] 29 kg/m2 DO Timbo Ball Work Phone: [facility] 05-06-2024 12:38-0400 Body temperature 96.3 [degF] DO Timbo Ball Work Phone: [facility] 05-06-2024 12:38-0400 Body weight 91.62 kg DO Timbo Ball Work Phone: [facility] 05-06-2024 12:38-0400 Diastolic blood pressure 78 mm[Hg] DO Timbo Ball Work Phone: [facility] 05-06-2024 12:38-0400 Heart rate 62 /min DO Timbo Ball Work Phone: [facility] 05-06-2024 12:38-0400 SaO2% (BldA) [Mass fraction] 90 % DO Timbo Ball Work Phone: [facility] 05-06-2024 12:38-0400 Systolic blood pressure 108 mm[Hg] DO Timbo Ball Work Phone: [facility] 03-15-2024 11:40-0400 Body height 177.8 cm [facility] 03-15-2024 11:40-0400 Body mass index (BMI) [Ratio] 29 kg/m2 [facility] 03-15-2024 11:40-0400 Body weight 91.73 kg [facility] 03-15-2024 11:40-0400 Diastolic blood pressure 76 mm[Hg] [facility] 03-15-2024 11:40-0400 Heart rate 66 /min [facility] 03-15-2024 11:40-0400 Respiratory rate 12 /min [facility] 03-15-2024 11:40-0400 Systolic blood pressure 129 mm[Hg] [facility] 01-08-2024 14:10-0500 Body height 177.8 cm [facility] 01-08-2024 14:10-0500 Body mass index (BMI) [Ratio] 28.8 kg/m2 [facility] 01-08-2024 14:10-0500 Body weight 90.94 kg [facility] 11-21-2023 10:30-0500 Body height 177.8 cm Timbo Ball Other [facility] Other 11-21-2023 10:30-0500 Body mass index (BMI) [Ratio] 29.12 kg/m2 Timbo Ball Other [facility] Other 11-21-2023 10:30-0500 Body weight 92.08 kg Timbo Ball Other [facility] Other 11-21-2023 10:30-0500 Diastolic blood pressure 66 mm[Hg] Timbo Ball Other [facility] Other 11-21-2023 10:30-0500 Respiratory rate 12 /min Timbo Ball Other [facility] Other 11-21-2023 10:30-0500 Systolic blood pressure 103 mm[Hg] Timbo Ball Other [facility] Other 09-24-2023 11:00-0500 Body height 177.8 cm Timbo Ball Other [facility] Other 09-24-2023 11:00-0500 Body mass index (BMI) [Ratio] 28.69 kg/m2 Timbo Ball Other [facility] Other 09-24-2023 11:00-0500 Body weight 90.72 kg Timbo Ball Other [facility] Other 09-24-2023 11:00-0500 Diastolic blood pressure 73 mm[Hg] Timbo Ball Other [facility] Other 09-24-2023 11:00-0500 Respiratory rate 12 /min Timbo Ball Other [facility] Other 09-24-2023 11:00-0500 Systolic blood pressure 134 mm[Hg] Timbo Ball Other [facility] Other 08-25-2023 12:21-0400 Blood Pressure Location Salome LOYA [facility] 08-25-2023 12:21-0400 Diastolic blood pressure 82 mm[Hg] Salome LOYA [facility] 08-25-2023 12:21-0400 Heart rate 80 /min Salome LOYA [facility] 08-25-2023 12:21-0400 Respiratory rate 16 /min Salome LOYA [facility] 08-25-2023 12:21-0400 Systolic blood pressure 137 mm[Hg] Salome LOYA [facility] 04-12-2023 09:16-0400 Body temperature 97 [degF] PA Aury Shehorn Work Phone: [facility] 04-12-2023 09:16-0400 Body weight 88.45 kg PA Aury Shehorn Work Phone: [facility] 04-12-2023 09:16-0400 Diastolic blood pressure 62 mm[Hg] PA Aury Shehorn Work Phone: [facility] 04-12-2023 09:16-0400 Heart rate 80 /min PA Aury Shehorn Work Phone: [facility] 04-12-2023 09:16-0400 SaO2% (BldA) [Mass fraction] 96 % PA Aury Shehorn Work Phone: [facility] 04-12-2023 09:16-0400 Systolic blood pressure 123 mm[Hg] PA Aury Shehorn Work Phone: [facility] 03-24-2023 12:00-0400 Body height 177.8 cm Timbo Ball Other [facility] Other 03-24-2023 12:00-0400 Body mass index (BMI) [Ratio] 28.44 kg/m2 Timbo Ball Other [facility] Other 03-24-2023 12:00-0400 Body weight 89.9 kg Timbo Ball Other [facility] Other 03-24-2023 12:00-0400 Diastolic blood pressure 67 mm[Hg] Timbo Ball Other [facility] Other 03-24-2023 12:00-0400 Respiratory rate 12 /min Timbo Ball Other [facility] Other 03-24-2023 12:00-0400 Systolic blood pressure 123 mm[Hg] Timbo Ball Other [facility] Other 04-29-2022 14:30-0400 Body height 177.8 cm Niya Baker Other [facility] Other 04-29-2022 14:30-0400 Body mass index (BMI) [Ratio] 28.69 kg/m2 Niya Baker Other [facility] Other 04-29-2022 14:30-0400 Body temperature 96.3 [degF] Niya Baker Other [facility] Other 04-29-2022 14:30-0400 Body weight 90.72 kg Niya Baker Other [facility] Other 04-29-2022 14:30-0400 Diastolic blood pressure 80 mm[Hg] Niya Baker Other [facility] Other 04-29-2022 14:30-0400 SaO2% (BldA) [Mass fraction] 98 % Niya Baker Other [facility] Other 04-29-2022 14:30-0400 Systolic blood pressure 120 mm[Hg] Niya Baker Other [facility] Other 04-19-2022 10:04-0400 Blood Pressure Location Salome LOYA [facility] 04-19-2022 10:04-0400 Diastolic blood pressure 84 mm[Hg] [facility] 04-19-2022 10:04-0400 Heart rate 67 /min Salome LOYA [facility] David 04-19-2022 10:04-0400 Respiratory rate 16 /min [facility] LO[facility] 04-19-2022 10:04-0400 Systolic blood pressure 143 mm[Hg] [facility] En[facility] Date Encounter Type Care Provider Facility Start: 09-26-2025 ambulatory Salome LOYA Facili ty:[facility] Start: 08-18-2025 End: 08-18-2025 Patient encounter procedure Dandre Pittman MD -[facility] Work Phone: Start: 08-18-2025 End: 08-18-2025 ambulatory Timbo Jenniffer DO Work Phone: [facility] Work Phone: Start: 08-16-2025 ambulatory Salomealeksandr LOYA Facility :[facility] Start: 07-30-2025 Non-patient / Non-visit Timbo velasco DO -[facility] Work Phone: Start: 07-29-2025 End: 07-29-2025 ambulatory Timbo Baig DO Work Phone: [facility] Work Phone: Start: 07-29-2025 End: 07-29-2025 Patient encounter procedure Timbo Baig DO -[facility] Work Phone: Start: 05-12-2025 End: 05-12-2025 ambulatory Timbo Ball DO Work Phone: [facility] Work Phone: Start: 05-12-2025 End: 05-12-2025 Patient encounter procedure Jaylon Finnegan MD -[facility] Work Phone: Start: 03-25-2025 Non-patient / Non-visit Timbo velasco DO -[facility] Work Phone: Start: 03-18-2025 Patient encounter procedure Timbo Ball DO Work Phone: [facility] Start: 03-18-2025 End: 03-18-2025 Patient encounter procedure Timbo Ball DO -[facility] Work Phone: Start: 12-29-2024 End: 12-29-2024 ambulatory Timbo Ball DO Work Phone: [facility] Work Phone: Start: 12-29-2024 End: 12-29-2024 Patient encounter procedure Timbo Ball DO Work Phone: [facility] Vascular Surg Work Phone: Start: 12-07-2024 End: 12-07-2024 Patient encounter procedure Timbo Ball DO Work Phone: [facility] Work Phone: Start: 12-07-2024 End: 12-07-2024 ambulatory Timbo Ball DO Work Phone: [facility] Work Phone: Start: 11-25-2024 End: 11-25-2024 ambulatory Timbo Ball DO Work Phone: [facility] Work Phone: Start: 11-25-2024 End: 11-25-2024 Patient encounter procedure Timbo Ball DO Work Phone: [facility] Vascular Surg Work Phone: Start: 11-04-2024 Non-patient / Non-visit Fahad in Ball DO Work Phone: [facility] Work Phone: Start: 10-28-2024 End: 10-28-2024 Patient encounter procedure Timbo Baig DO Work Phone: [facility] Work Phone: Start: 10-26-2024 End: 10-26-2024 Patient encounter procedure Timbo Baig DO Work Phone: [facility] Cardiology Work Phone: Start: 10-18-2024 Non-patient / Non-visit Benjam in Ball DO Work Phone: [facility] Vascular Surg Work Phone: Start: 10-18-2024 End: 10-18-2024 Admission to same day surgery center Timbo Baig DO Work Phone: [facility]Inter[facility] Work Phone: Start: 10-18-2024 End: 10-18-2024 ambulatory Jaylon Finnegan Facility:[facility] Start: 10-04-2024 Non-patient / Non-visit Benjam in Jenniffer DO Work Phone: [facility] Vascular Surg Work Phone: Start: 10-04-2024 End: 10-04-2024 Admission to same day surgery center Timbo Baig DO Work Phone: [facility] Work Phone: Start: 10-04-2024 End: 10-04-2024 ambulatory Jaylon Finnegan Facility:[facility] Start: 09-20-2024 End: 09-20-2024 ambulatory Salome LOYA Facility:[facility] Start: 09-20-2024 End: 09-20-2024 Patient encounter procedure Salome LOYA [facility] Start: 09-15-2024 End: 09-15-2024 ambulatory DO Timbo Baig Work Phone: [facility] Work Phone: Start: 09-15-2024 End: 09-15-2024 Patient encounter procedure DO Timbo Ball Work Phone: [facility] V[facility] Work Phone: Start: 08-31-2024 End: 08-31-2024 ambulatory DO Timbo Ball Work Phone: [facility] Work Phone: Start: 08-31-2024 End: 08-31-2024 Patient encounter procedure DO Timbo Ball Work Phone: [facility] Work Phone: Start: 08-26-2024 End: 08-26-2024 Patient encounter procedure DO Timbo Ball Work Phone: [facility] Work Phone: Start: 08-26-2024 End: 08-26-2024 ambulatory DO Timbo Ball Work Phone: [facility] Work Phone: Start: 08-25-2024 End: 08-25-2024 ambulatory DO Timbo Ball Work Phone: [facility] Work Phone: Start: 08-25-2024 End: 08-25-2024 Patient encounter procedure DO Timbo Ball Work Phone: [facility] Work Phone: Start: 08-16-2024 End: 08-16-2024 ambulatory [facility] Work Phone: Start: 08-16-2024 End: 08-16-2024 Patient encounter procedure [facility] Cardiology Work Phone: Start: 06-30-2024 End: 06-30-2024 ambulatory DO Timbo Ball Work Phone: [facility] Work Phone: Start: 06-30-2024 End: 06-30-2024 Patient encounter procedure DO Timbo Baig Work Phone: [facility] Work Phone: Start: 05-06-2024 End: 05-06-2024 ambulatory DO Timbo Baig Work Phone: [facility] Work Phone: Start: 05-06-2024 End: 05-06-2024 Patient encounter procedure DO Timbo Baig Work Phone: [facility] Vascular Surgery Work Phone: Start: 04-29-2024 Non-patient / Non-visit DO Sheng Baig Work Phone: [facility] Work Phone: Start: 04-17-2024 Non-patient / Non-visit DO Sheng Baig Work Phone: [facility] Work Phone: Start: 04-07-2024 Non-patient / Non-visit DO Sheng Baig Work Phone: [facility] Work Phone: Start: 03-15-2024 End: 03-15-2024 ambulatory [facility] Work Phone: Start: 03-15-2024 End: 03-15-2024 Patient encounter procedure [facility] Physician [facility] Work Phone: Start: 02-11-2024 End: 02-11-2024 ambulatory NAVNEET BLANC Not Available Start: 01-15-2024 End: 01-15-2024 amb[address] [facility] Start: 01-08-2024 End: 01-08-2024 Patient encounter procedure [facility] Physician [facility] Neurosurgery Work Phone: Start: 12-26-2023 Non-patient / Non-visit [facility] Work Phone: Start: 12-17-2023 End: 12-17-2023 ambulatory [address] [facility] Start: 11-21-2023 End: 11-21-2023 ambulatory Timbo Baig Other [employer] Other Start: 11-21-2023 Office outpatient vi sit 15 minutes Timbo Baig [facility] Start: 10-08-2023 End: 10-08-2023 ambulatory Timbo Jenniffer Other [employer] Other Start: 10-08-2023 Telephone encounter Tibmo Baig [facility] Start: 09-24-2023 End: 09-24-2023 ambulatory Timbo Jenniffer Other [employer] Other Start: 09-24-2023 Office outpatient vi sit 25 minutes Timbo Baig [facility] Start: 09-04-2023 Office outpatient vi sit 15 minutes Jaylon Finnegan [facility] Vascular Surgery Start: 09-04-2023 End: 09-04-2023 ambulatory DO Timbo Baig Work Phone: [employer] Other Start: 09-04-2023 End: 09-04-2023 Patient encounter procedure DO Timbo Baig Work Phone: [facility] Vascular Start: 08-25-2023 End: 08-25-2023 Patient encounter procedure Salome LOYA [facility] Jose David Start: 2023 End: 2023 ambulatory Niya Baker Other [employer] Other Start: 2023 Telephone encounter Niya Baker [facility] Start: 05-22-2023 End: 05-22-2023 ambulatory Niya Baker Other [employer] Other Start: 05-22-2023 Telephone encounter Niya Barber [facility] Start: 05-01-2023 End: 05-01-2023 ambulatory DO Timbo Baig Work Phone: [facility] Work Phone: Start: 05-01-2023 End: 05-01-2023 Patient encounter procedure DO Timbo Baig Work Phone: [facility] Vascular Start: 04-12-2023 End: 04-12-2023 ambulatory PA Aury Wolffhorn Work Phone: [facility] Work Phone: Start: 04-12-2023 End: 04-12-2023 Patient encounter procedure PA Aury Wolffhorn Work Phone: [facility] [employer] Work Phone: Start: 04-02-[address] TIMBO BAIG Facili ty:[facility]1 Start: 03-24-2023 End: 03-24-2023 ambulatory Timbo Baig Other [employer] Other Start: 03-24-2023 Patient encounter procedure Timbo Baig [facility] Start: 09-25-2022 End: 09-26-[address] TIMBO BAIG Facility:[facility] Start: 07-09-2022 End: 07-10-2022 ambulatory TITA JJ Facility:[facility]1 Start: 04-29-2022 End: 04-29-2022 ambulatory Niya Baker Other [employer] Other Start: 04-29-2022 Follow-up encounter Niya Barber [facility] Start: 04-29-2022 End: 04-29-2022 Patient encounter procedure DO Timbo Baig Work Phone: [facility] Vascular Start: 04-27-2022 End: 04-28-[address] TIMBO BAIG Facility:[facility]1 Start: 04-19-2022 End: 04-19-2022 Patient encounter procedure Salome LOYA [facility] Jose David Start: 04-18-2022 End: 04-19-[address] SALOME LOYA . Facility: Start: 03-13-2022 Adult health examination Jaylon Finnegan Other [facility] Other Procedures Date Procedure Procedure Detail Performing [...] LOYA Start: 04-12-2023 Flu B PA Aury Shehorn Work Phone: Start: 04-12-2023 Rapid Strep PA Aury Shehorn Work Phone: Start: 08-31-2020 Extracorporeal shock wave lithotripsy of calculus of kidney Salome LOYA Start: 05-23-2020 Cystoscopy Salome LEWIS Start: 06-17-2019 Cystoscopic removal of ureteric stent Salome LOYA Start: 06-10-2019 Cystoscopic insertio n of ureteric stent Salome LOYA Start: 09-18-2018 Screening for malign ant neoplasm of colon Jaylon Dunnmiguel angel Other Start: 04-11-2016 Extracorporeal shock wave lithotripsy [...] LOYA Depression screening Jaylon Finnegan Other Hemorrhoidectomy Salomealeksandr VINCENT LOIS Herniated structure (morphologic abnormality) Salome LOYA History of coronary artery bypass grafting S/P CABG (coronary artery bypass graft) Timbo Baig DO Work Phone: Urodynamic studies Salome SMITH Plan of Treatment Date Care Activity Detail Author Start: 05-12-2025 Ankle brachial press ure index US ankle/arm indices [facility] Start: 05-12-2025 Doppler ultrasonogra phy of bilateral carotid arteries US carotid doppler [facility] Start: 12-07-2024 Pulse volume recorde r plethysmography [facility] Start: 10-18-2024 [facility] Start: 10-04-2024 [facility] Start: 08-26-2024 Pulse volume recorde r plethysmography [facility] Start: 08-25-2024 Radionuclide myocard ial perfusion stress study NM charito perf SPECT rest & str [facility] Start: 08-16-2024 [facility] Start: 06-30-2024 Patient referral [facility] Work Phone: Start: 05-06-2024 Doppler ultrasonogra phy of bilateral carotid arteries US carotid doppler [facility] Start: 05-06-2024 US.doppler Carotid a rteries - [facility] Start: 01-08-2024 Patient referral [facility] Work Phone: Start: 05-01-2023 Doppler ultrasonogra phy of bilateral carotid arteries US carotid doppler [facility] Start: 05-01-2023 US.doppler Carotid a rteries - [facility] Start: 04-29-2022 Doppler ultrasonogra phy of bilateral carotid arteries US carotid doppler [facility] Ankle brachial press ure index [facility] Comprehensive metabo lic 2000 panel - Serum or Plasma [facility] Comprehensive metabo lic 2000 panel - Serum or Plasma [facility] Comprehensive metabo lic 1999 panel - Serum or Plasma [facility] Patient Education [facility] Medic [facility] Work Phone: Patient referral [facility] Work Phone: US.doppler Carotid a rteries - bilateral [facility] US.doppler Carotid a rteries -right [facility] XR Lumbar spine 4 Views [facility] Immunizations Immunization Date Immunization Notes Care Provider Noah jamison 07-29-2025 influenza, high dose seasonal, preservative-free Timbo Baig DO Work Phone: [facility] 07-16-2024 influenza virus vaccine, unspecified formulation Salomealeksandr LOYA [facility] 07-30-2023 influenza virus vaccine, unspecified formulation Salomealeksandr LOYA [facility] 08-04-2022 COVID-19 Pfizer (bivalent) Timbo Baig Other [facility] 08-04-2022 influenza virus vaccine, unspecified formulation Aslomealeksandr LOYA [facility] 08-04-2022 influenza, high dose seasonal, preservative-free Timbo Biag Other [employer] Other 02-21-2022 COVID-19 Pfizer Timbo velasco Other [facility] 02-21-2022 SARS-CoV-2 mRNA (xwayrtwghgl-odcy-tbuwb se) vaccine Salomealeksandr LOYA [facility] 09-06-2021 zoster vaccine recombinant Timbo Baig Other [facility] 08-10-2021 influenza virus vaccine, unspecified formulation Salomealeksandr LOYA [facility] 08-07-2021 COVID-19 Vaccine Pfi zer - Documentation Purposes Only Timbo Baig Other [facility] Comment on above: Result Comment: 2022: [id number] 07-19-2021 influenza virus vaccine, unspecified formulation Salome LOYA [facility] 05-16-2021 zoster vaccine recombinant Timbo Baig Other [facility] 01-09-2021 COVID-19 Vaccine Pfi zer - Documentation Purposes Only Timbo Baig Other [facility] Comment on above: Result Comment: 2022: [id number] 12-19-2020 COVID-19 Vaccine Pfi zer - Documentation Purposes Only Timbo Baig Other [facility] Comment on above: Result Comment: 2022: [id number] 07-31-2020 influenza virus vaccine, unspecified formulation Saolme LOYA [facility] 08-20-2019 influenza virus vaccine, split virus (incl. purified surface antigen) Jaylon Finnegan Other [employer] Other 08-20-2019 influenza virus vaccine, unspecified formulation [facility] 08-10-2019 influenza virus vaccine, unspecified formulation Salome Bugcrowd [facility] 02-19-2019 pneumococcal polysaccharide vaccine, 23 valent Timbo Baig Other [facility] 09-21-2018 influenza virus vaccine, unspecified formulation Salome Bugcrowd [facility] 08-19-2018 influenza virus vaccine, split virus (incl. purified surface antigen) Jaylon Finnegan Other [employer] Other 08-19-2018 influenza virus vaccine, unspecified formulation [facility] 02-16-2018 pneumococcal conjuga te vaccine, 13 valent Timbo Baig Other [facility] 09-02-2017 influenza virus vaccine, unspecified formulation Salome LOYA [facility] 08-28-2016 influenza virus vaccine, unspecified formulation Salome LOYA [facility] 08-22-2015 influenza virus vaccine, unspecified formulation Salomealeksandr LOYA [facility] 08-19-2013 influenza virus vaccine, unspecified formulation Salome LOYA [facility] Payers Date Payer Category Payer Self-pay [id number] 2024 Medicare [id number] 1959 Medicare [id number] 1959 Private Health Insurance [id number] 1940 Unknown [id number] 2.16.84 [id number] 1942 Unknown [id number] 2.16.84 0.1.077853.3.579.2.59 1942 Unknown [id number] 2.16.84 0.1.040537.3.579.2.59 1942 Unknown [id number] 2.16.84 0.1.085951.3.579.2.593 1942 Unknown [id number] 2.16.84 0.1.490030.3.579.2.593 1942 Unknown [id number] 2.16.84 0.1.364589.3.579.2.1259 1942 Unknown [id number] 2.16.8 40.1.701019.3.579.2.727 1942 Unknown [id number] 2.16.8 40.1.763742.3.579.2.727 Unknown [id number] 2.16.8 40.1.845074.3.579.2.531 Unknown [id number] 2.16.8 40.1.784018.3.579.2.531 Unknown [id number] 2.16.8 40.1.711495.3.579.2.531 Unknown [id number] 2.16.8 40.1.300401.3.579.2.531 Unknown [id number] 2.16.8 40.1.162982.3.579.2.531 Unknown [id number] 2.16.8 40.1.720263.3.579.2.531 Unknown [id number] 2.16.8 40.1.561371.3.579.2.531 Social History Date Type Detail Facility Start: 08-27-2021 End: 12-29-2024 Tobacco smoking status Ex-smoker (finding) [facility] Sex Assigned At Male [facility] Start: 1940 Sex Assigned At Male F [facility] Start: 04-12-2023 Alone [facility] Start: 04-12-2023 0 [facility] Start: 03-12-2024 Tobacco smoking stat us IDIS Never smoked tobacco (finding) [facility] Start: 11-25-2024 End: 12-29-2024 Sex Male (finding) [facility] Medical Equipment Procedure Code Equipment Code Equipment Origin al Text Equipment Identifier Dates Angiogram, lower extremity, left Multiple peripheral artery stent, bare-metal ([id number] FDA Start: 10-04-2024 Functional Status Date Assessment Result Facility 09-20-2024 Functional Status N/A [facility] 08-25-2023 Functional Status N/A [facility] Clinical Notes 04-19-2022 to 07-29-2025 Note Date & Type Note Facility 07-29-2025 Evaluation note Diagnosis Onset Date Resolution Anemia acute July 9:59am ASHD (arteriosclerotic heart disease) acute July 29, 2025 9:59am 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 acute 2024 9:59am Carotid stenosis, bilateral acute July 29, 2025 9:59am Chronic heart failure with preserved ejection fraction (HFpEF) acute July 29, 2025 9:59am Chronic kidney disease acute Se ptember 2024 9:59am Hypercholesterolemia acute Jul 9:59am Hypertension acute July 292024 9:59am Neurogenic claudication due to lumbar spinal stenosis acute 2024 9:59am Primary insomnia acute 2024 9:59am Subclinical hypothyroidism acute July 29, 2025 9:59am Carotid artery stenosis, asymptomatic acute August 18 10:25am Former smoker acute August 10:25am History of left common carotid artery stent placement acute August 18 10:25am PAD (peripheral artery disease) acute August 18 10:25am [facility] Work Phone: 1(176) 270-603307-03-2025 Evaluation note* Diagnosis Onset Date Resolution Status [...] Se ptember 2024 9:59am Hypercholesterolemia acute Jul ember 2024 9:59am Hypertension acute July 292024 9:59am Primary insomnia acute Julembe r 2024 9:59am Subclinical hypothyroidism acute July 29, 2025 9:59am [facility] Work Phone: 1(299) 653-161507-03-2025 Radiology Diagnostic study [facility] [address] [place] [address] Ultrasound Report Signed Patient: Max Brady MR#: [id number] : 1940 Acct:[id number] Age/Sex: 84 / M ADM Date: 5 Loc: [facility] Room: Type: [facility] Attending Dr: Jaylon Finnegan MD Ordering [...] Finnegan MD,FACS,FSVS 05/12/2025 11:52 AM Dictation Location: [place] [address] Tech: Merle Donaldson Transcribed By: DANIEL 05/12/25 115 Dictated By: Jaylon Finnegan MD 05/12/25 1151 Signed By: 05/12/25 1152 [facility] Work Phone: 1(331) 926-111607-03-2025 Radiology Diagnostic study [facility] [address] [place] [address] Ultrasound Report Signed Patient: Max Brady MR#: [id number] : 1940 Acct:[id number] Age/Sex: 84 / M ADM Date: 5 Loc: [facility] Room: Type: [facility] Attending Dr: Jaylon Finnegan MD Ordering [...] Finnegan MD,FACS,FSVS 05/12/2025 11:51 AM Dictation Location: [place] [address] Tech: Pam Sheehan Transcribed By: DANIEL 05/12/25 115 Dictated By: Jaylon Finnegan MD 05/12/25 115 Signed By: 05/12/25 1151 [facility] Work Phone: 1(201) 961-940005-09-2025 Evaluation note* Diagnosis Onset Date Resolution Status [...] Primary insomnia acute March 18, 2025 9:57am [facility] Work Phone: 1(416) 660-439305-09-2025 Evaluation note* Diagnosis Onset Date Resolution Status [...] artery stenosis acute May 12, 2025 10:37am [facility] Work Phone: 1(864) 906-263012-09-2024 Evaluation note* Diagnosis Onset Date Resolution Status Admit Date PAD (peripheral artery disease) acut e October 18, 2024 8:56am Carotid stenosis, bilateral acute October 26, 2024 8:58am Chronic heart failure with preserved ejection fraction (HFpEF) acute October 26, 2 024 8:58am Coronary artery disease invo [place]ving [place] coronary artery of [place] heart [place] acute October 26, 2 024 [...] 25, 2024 9:58am Right leg claudication acute [facility] 2024 9:58am [facility] Work Phone: 1(973) 595-178911-11-2024 Hospital Discharge instructions Patient Education 09/20/2024 12:11:28 Kidney Stones, Woeu-so-Dkpn Kidney Stones Kidney stones are rock-like masses [...] Follow these instructions at home: Medicines Take jrvd-dlf-ixjeile and prescription medicines only as told by [...] provider. Document Revised: 06/20/2023 Document Reviewed: 06/20/2023 [email or web address] Patient Education 2023 Vputi. Follow Up Care 04/21/2023 10:27:24 With:REINIER HUSAIN, Salome Jaramillo, URL Address: [facility] [address] , [place] [address]- [phone] When: Unknown Comments:3 yr andrea/ [place] [facility] Jose David 11-11-2024 NotePatient Education Urology Kidney Stones Kidney [...] these instructions at home: Medicines ??? Take lhul-fyq-xobzbwo and prescription medicines only as told by [...] provider. Document Revised: 06/20/2023 Document Reviewed: 06/20/2023 [email or web address] Patient Education ? [facility] Evaluation note* Diagnosis Onset Date Resolution Status Admit Date PAD (peripheral artery disease) acut e September 15, 2024 11:48am PAD (peripheral artery disease) acut e October 18, 2024 8:56am Carotid stenosis, bilateral acute October 26, 2024 8:58am Chronic heart failure with preserved ejection fraction (HFpEF) acute October 26, 024 8:58am Coronary artery disease invo lving [place] coronary artery of [place] heart [place] acute October 26 8:58am Nonrheumatic mitral (valve) stenosis acute October 26 024 8:58am PAD (peripheral artery disease) acut e October 26, 2024 8:58am S/P aortic valve replacement with bioprosthetic valve acute October 8:58am S/P CABG (coronary artery by pass graft) acute October 26 024 8:58am ASHD (arteriosclerotic heart disease) acute October 28, 024 2:47pm Atherosclerosis of both lowe r [...] 25, 2024 9:58am Right leg claudication acute [facility] 2024 9:58am [facility] Work Phone: 1(671) 110-353310-22-2024 Evaluation note* Diagnosis Onset Date Resolution Status Admit Date ASHD (arteriosclerotic heart disease) acute August 31 10:58am 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 acute August 31 10:58am Carotid stenosis, bilateral acute August 31, 2024 10:58am Chronic heart failure with preserved ejection fraction (HFpEF) acute August 31 10:58am Hypercholesterolemia acute Octo 2023 10:58am Hypertension acute August 10:58am PAD (peripheral artery disease) acut e September 15, 2024 11:48am PAD (peripheral artery disease) acut e October 18, 2024 8:56am Carotid stenosis, bilateral acute October 26, 2024 8:58am Chronic heart failure with preserved ejection fraction (HFpEF) acute October 26 024 8:58am Coronary artery disease invo lving [place] coronary artery of [place] heart [place] acute October 26 024 8:58am [...] Primary insomnia acute October 28, 2024 2:47pm [facility] Work Phone: 1(758) 931-651003-07-2024 NotePatient here for 1 mo follow up [...] pain. All other systems reviewed and are negative.[facility] 01-15-2024 NoteCardiovascular Medicine [facility] SUBJECTIVE Chief Complaint Patient presents with Coronary Artery Disease Congestive Heart Failure Hypertension Hyperlipidemia Max Brady is a 83 y.o. male here for follow-up. HPI PMHx: AVR 2014, CAD s/p CABG x1 2014, HTN, carotid stent by vascular surgeon in [place] (Dr. Cedillo) 01/15/2024 He notes that his [...] 7. Mild mitral va (more content not included)...[facility]02-07-2024 NotePatient here for 1 year follow up [...] pain. All other systems reviewed and are negative.[facility] 12-17-2023 NoteCardiovascular Medicine [facility] SUBJECTIVE No chief complaint on file. Max Brady is a 83 y.o. male here for follow-up. HPI PMHx: AVR 2014, CAD s/p CABG x1 2014, HTN, carotid stent by vascular surgeon in [place] (Dr. Cedillo) He works out a few [...] aortic stenosis by invasive hemodynamic study. 2. Xjmxvwzy-ht-ohvrxt two-vessel coronary artery disease involving the left anterior descending and left circumflex coronary arteries. 3. Normal right-sided heart pressures and wedge pressure. 4. Normal cardiac output/cardiac index. 5. 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 (more content not included)...[facility]01-12-2024 Evaluation note* Encounter Date Diagnosis Assessment Notes [...] a couple years. - previously referred to [facility] Neurosurgery but declined treatment He feels [...] and feet daily for blisters and ulcerations. [employer] Other 11-15-2023 Evaluation note* Encounter Date Diagnosis [...] w/ serial Echocardiogram Control BP and HR [employer] Other 10-26-2023 Evaluation note* Encounter Date Diagnosis [...] pain which seems to be bothering him. [employer] Other 10-16-2023 Hospital Discharge instructions Patient Education [...] include: ?8 oz (237 mL) of milk, sckwufc-sykiolgupzdv-ehfex milk, and calcium- fortifiedfruit juice. Calcium-fortified means [...] ?Spinach (cooked), rhubarb, beets, sweet potatoes, and Portuguese chard. ?Peanuts. ?Potato chips, khmer fries, and baked potatoes with skin on. ?Nuts and nut products. ?Chocolate. If you regularly take a diuretic medicine, make sure to eat at least 1 or 2 servings of fruits or vegetables that are high in potassium each day. These include: ?Avocado. ?Banana. ?[place], prune, carrot, or tomato juice. ?Baked potato. [...] magnesium, fish oil, or vitamin B6. Take ogco-fbj-vuykvoh and prescription medicines only as told by [...] Casseroles. Pizza. Lasagna. Frozen meals. Potato chips. Korean fries. The items listed above may not [...] provider. Document Revised: 07/08/2022 Document Reviewed: 07/08/2022 [email or web address] Patient Education 2022 Vputi. Follow Up Care 05/30/2023 13:07:47 With:REINIER HUSAIN, Salome Jaramillo, URL Address: [facility] [address], [place] [address]- When:Within 1 Year(s) Comments:andrea/MELQUIADES [facility] [place] 05-15-2023 Evaluation note* Encounter Date Diagnosis Assessment [...] High risk medication use (ICD-10 - Z79.899) [employer] Other 06-20-2022 Evaluation note* Encounter Date Diagnosis [...] agrees with this plan, denies any questions. [employer] Other 06-10-2022 Hospital Discharge instructions Patient Education 04/19/2022 10:54:30 Kidney Stones, Vbck-bm-Qfst Kidney Stones Kidney stones are rock-like masses [...] Follow these instructions at home: Medicines Take cebj-nxg-dlqpwkv and prescription medicines only as told by [...] 04/14/2009 Document Revised: 03/14/2020 Document Reviewed: 03/14/2020 [email or web address] Patient Education 2020 Vputi. Follow Up Care 08/27/2021 10:53:23 With:Salome LOYA MD, URL Address: [facility] [address] , [place] [address]- [phone] When:04/19/2023 [facility] evaluation + Plan note Future Appointments Appointment Date:04/21/2023 09:45:00 AM Scheduled Provider:Salome LOYA MD Location:[facility] Appointment Type:URO Office Visit [facility] evaluation + Plan note Future Appointments Appointment Date:08/30/2024 10:30:00 AM Scheduled Provider:Salome LOYA MD Location:[facility] Appointment Type:URO Office Visit [facility] evaluation + Plan note Future Appointments Appointment Date:09/26/2025 10:30:00 AM Scheduled Provider:Salome LOYA MD Location:[facility] Appointment Type:URO Office Visit [facility] evalgugylu noteNo assessment information available [facility] Work Phone: Evaluation note* Diagnosis Onset Date Resolution Status Viral URI acute [facility] Work Phone: Evaluation noteNo InformationNortWikibon Other Evaluation note* Diagnosis Onset Date Resolution [...] acute Medicare annual wellness visit, subsequent noneactive [facility] Work Phone: Evaluation note* Diagnosis Onset Date Resolution Status ASHD (arteriosclerotic heart disease) acute 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 acute Carotid stenosis, bilateral acute Chronic kidney disease acute Hypercholesterolemia acute Hypertension acute Lumbar spondylosis with myelopathy acute Medicare annual wellness visit, subsequent noneactive History of left common carot id artery stent placement acute [facility] Work Phone: Evaluation note* Diagnosis Onset Date Resolution Status History of left common carotid artery stent placement acute ASHD (arteriosclerotic heart disease) acute 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 acute Carotid stenosis, bilateral acute Chronic kidney disease acute Hypercholesterolemia acute Hypertension acute Lumbar spondylosis with myelopathy acute [facility] Work Phone: Evaluation note* Diagnosis Onset Date Resolution Status ASHD (arteriosclerotic heart disease) acute 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 acute Carotid stenosis, bilateral acute Chronic heart failure with p reserved ejection fraction (HFpEF) acute Chronic kidney disease acute Hypercholesterolemia acute Hypertension acute Lumbar spondylosis with myelopathy acute Nonrheumatic mitral (valve) stenosis acute [facility] Work Phone: Evaluation note* Diagnosis Onset [...] fraction (HFpEF) acute Hypercholesterolemia acute Hypertension acute [facility] Work Phone: Evaluation note* Diagnosis Onset Date Resolution Status ASHD (arteriosclerotic heart disease) acute 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 acute Carotid stenosis, bilateral acute Chronic kidney disease acute Hypercholesterolemia acute Hypertension acute Lumbar spondylosis with myelopathy acute Medicare annual wellness visit, subsequent noneactive [facility] Work Phone: Hismrcg general Narrative - Reported* Type Description Date Medical History carotid stenosis Medical History HTN Surgical History heart valve replaced 2013 Surgical History left internal carotid angioplas ty and stent 2011 [facility] Other Hisjvho general Narrative - Reported* Type Description Date [...] RIGHT 2019 Hospitalization History SEE SURGICAL HX [facility] Other History general Narrative - Reported* Type [...] EGD 2019 Surgical History ESWL, KIDNEY, RIGHT 2020 Surgical History ESWL, right kidney 05/2023 Hospitalization History SEE SURGICAL HX [facility] Other Hospital course Narrative No data available for this section [facility] progress note No data available for this section [facility] reason for referral (narrative)* Reason Referral for lumbar foraminal stenosis and left lower extremity weakness. 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 372) Referral Organization Formerly [facility] penny Referring Provider First Name Timbo Referring Provider Last Name Jenniffer Referring Provider Specialty Internal Me dicine Referred Organization [facility] Referred Provider Boby Mai Referred Address [address] [place], [place],[address] Referred Provider Specialty Neurological Surgery Referral Priority [...] Notes Include recent and p revious MRI [facility] Other Reason for referral (narrative)No reason for referral [facility]: Chief Complaint and Reason [...] 18 024 8:56am PVD w/Serve Claudication October 18 [...] 2024 8:58am Coronary artery disease invo [place]ving [place] coronary artery of [place] heart [place] October 26, 2024 8:58am Nonrheumatic [...] 18 8:56am PVD w/Serve Claudication October 18 024 [...] 2024 8:58am Coronary artery disease invo lving [place] coronary artery of [place] heart [place] October 26, 2024 8:58am Nonrheumatic mitral (valve) stenosis Dec ember 2023 8:58am PAD (peripheral artery disease) October 26, 2024 8:58am 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 October 26, 2024 8:58am S/P CABG (coronary artery bypass graft) October 26, 2024 8:58am ASHD (arteriosclerotic heart disease) [facility] 2023 2:47pm Atherosclerosis of both lowe r [...] 07, 2024 1 2:50pm FOLLOW UP FROM [facility] December 29, 2024 10:14am Reason for Visit Admit Date PAD (peripheral artery disease) October 18, 2024 8:56am Carotid stenosis, bilateral October 8:58am Chronic heart failure with p reserved ejection fraction (HFpEF) October 26, 2024 8:58am Coronary artery disease invo lving [place] coronary artery of [place] heart [place] October 26, 2024 8:58am Nonrheumatic mitral (valve) stenosis Dec emb2023 8:58am PAD (peripheral artery disease) October 26, 2024 8:58am 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 October 26, 2024 8:58am S/P CABG (coronary artery bypass graft) October 26, 2024 8:58am ASHD (arteriosclerotic heart disease) [facility] 2023 2:47pm Atherosclerosis of both lowe r [...] Admit Date ASHD (arteriosclerotic heart disease) Rolando oconnor 2024 9:57am Atherosclerosis of both lowe r [...] Visit Admit Date ASHD (arteriosclerotic heart disease) Ma y 2024 9:57am Atherosclerosis of both lowe [...] Complaint Admit Date 1 YR FOLLOW UP; HCING'S, CAROTID 1O:30A Ju 2024 10:37am I65.23 May [...] 29, 2025 9:59am Subclinical hypothyroidism July 9:59am Chief Complaint Admit Date 4 month f/u July 29, 2025 9:59am 3 MONTH F/U; CAROTID RIGHT SIDE ONLY 10: 30A August 18, 2025 10:25am Reason for Visit Admit Date Anemia July 29, 2025 9:59am ASHD (arteriosclerotic heart disease) Se ptember 2024 9:59am 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 July 29, 2025 9:59am Carotid stenosis, bilateral July 292024 9:59am Chronic heart failure with p reserved ejection fraction (HFpEF) July 29, 2025 9:59am Chronic kidney disease July 29, 025 9:59am Hypercholesterolemia July 29 9:59am Hypertension July 29, 2025 9:59am 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 July 29, 2025 9:59am Primary insomnia July 29, 2025 9:59am Subclinical hypothyroidism July 9:59am Carotid artery stenosis, asymptomatic Oc tober 2024 10:25am Former smoker August 18, 2025 10 :25am History of left common carotid artery st ent placement August 18, 2025 10:25am PAD (peripheral artery disease) August 18, 2025 10:25am Advance Directives No Advanced Directives Records Found [...] 15, 2024 12:47pm Summary Purpose Family History No Family History Records Found Relationship Condition Age at Onset Recorded Date/T [...] content) Team Status: Active Member Role Status Omar Baig DO Primary Care Provider Active Team [...] May 06, 2024 End: May 06, 2024 ALISA CabreraC Attending Provider [...] Member Role Status Dates Abimael Cruz MD Digital Publishing Specialist Active Timbo Baig DO Primary Care Provider [...] December 07, 2024 End: December 07, 2024 FREEMAN Cabrera Attending Provider Active Start: December 07, 2024 [...] 2025 Team Status: Active Member Role Status Dates Timbo Baig DO Primary Care Provider Active Start: March 25, 2025 Timbo Baig DO Attending Provider Active Sta rt: March 25, 2025 Team Status: Inactive Member Role Status Dates Timbo Baig DO Primary Care Provider Active Start: May 12, 2025 End: May 12, 2025 Jaylon Finnegan MD Attending Provider Active Start: May 12, 2025 End: May 12, 2025 Team Status: Active Member Role Status Dates Timbo Baig DO Primary Care Provider Active Start: May 12, 2025 Jaylon Finnegan MD Attending Provider Active Start: May 12, 2025 Team Status: Inactive Member Role Status Dates Timbo Baig DO Primary Care Provider Active Start: July 29, 2025 End: July 29, 2025 Timbo Baig DO Attending Provider Active Sta rt: July 29, 2025 End: July 29, 2025 Team Status: Active Member Role Status Dates Timbo Baig DO Primary Care Provider Active Start: July 30, 2025 Timbo Baig DO Attending Provider Active Sta rt: July 30, 2025 Team Status: Inactive Member Role Status Dates Timbo Baig DO Primary Care Provider Active Start: August 18, 2025 End: August 18, 2025 Dandre Degroot MD Attending Provider Active Star t: August 18, 2025 End: August 18, 2025 Goals (unrecognized section and content) Goals may be documented in a n alternate section REASON FOR VISIT (unrecogniz ed section and content) VASC 1 YR FU; CAROTID DUPLEX 1PWELLNESS MBNo InformationERRORMedication Clarification4 month follow up; CHING's B/L legs at 11:006 month Follow up6 month Follow upMRI resultsface to face for AFO brace- fax note to [phone] (unrecognized sect ion and content) No Status Records FoundNo Status Records FoundNo Status Records FoundNo Status Records FoundNo Status Records Found INFORMATION SOURCE (unrecogn ized section and content) DATE CREATED AUTHOR [facility]/25/2023 [facility] DATE CREATED AUTHOR AUTHOR'S ORGANIZ ATION 01/16/2024 [facility] DATE CREATED AUTHOR AUTHOR'S ORGANIZ ATION 02/12/2024 [facility] DATE CREATED AUTHOR AUTHOR'S ORGANIZ ATION 08/18/2025 [facility] DATE CREATED AUTHOR AUTHOR'S ORGANIZ ATION 08/20/[address] [facility] ys[facility] FOR RECORDS PERTAINING TO PATIENTS [...] BE BASED ON THE PRIMARY CLINICAL RECORDS. [facility]. provides no warranty or guarantee of the accuracy or completeness of information in this document.
[2025-08-29 10:09] VITALS: BP 118/71; PULSE 75; TEMP 37; O2SAT 100
[2025-08-29 10:53] VITALS: BP 137/65; PULSE 88; O2SAT 98
[2025-08-29 10:54] VITALS: BP 135/68; PULSE 86; O2SAT 96
[2025-08-29] MEDS: 0.9 % SODIUM CHLORIDE 10 ML SYRINGE - SALINE FLUSH INJ (10:55)
[2025-08-29] MEDS: LIDOCAINE HCL 2% 400 MG/20 ML MDV INJ (10:56)
[2025-08-29] MEDS: IOHEXOL 240 MG/ML - 10 ML VIAL 24 MG INJ (10:56)
[2025-08-29] MEDS: METHYLPREDNISOLONE ACETATE 80 MG/ML VIAL INJ (10:56)
[2025-08-29] MEDS: BUPIVACAINE HCL 0.25% PF 25 MG/10 ML VIAL INJ (10:56)
--- NOTE | 2025-08-29 11:02 | P.ON_ITS ---
Date of procedure: 08/29/25 Pre-op diagnosis: Pain due to lumbar stenosis with neurogenic claudication Post-op diagnosis: same as pre-op Procedure: Procedure: Left L4-5, L5-S1 transforaminal epidural steroid injection Medications: Bupivacaine 0.25% 2cc, lidocaine 2% 1cc, depomedrol 80mg The patient was seen and examined in the preoperative holding area.? Informed consent was obtained and placed on the chart.? Patient was brought to the medical procedure unit and placed in the prone position where a timeout was completed verifying the correct patient, procedure site, position, and planned special equipment using sterile aseptic technique.? Under direct fluoroscopic visualization a 25-gauge Quincke tipped spinal needle was advanced to the designated neural foramen where contrast dye was injected to show adequate spread.? The needle was inserted at level left L4-5. There was no evidence of vascular or adverse uptake.? Epidural spread was appreciated.? The above- mentioned injectate was then placed in a 1.5 mL aliquot preceded by negative aspiration.? The needle was removed. The needle was inserted and the procedure repeated at level left L5-S1.? The surgery site was covered.? Patient was taken to the postprocedural recovery area and monitored for an appropriate length of time before found suitable for discharge in the accompaniment of a responsible adult. Anesthesia: Local Surgeon: Ramu Marcum Pathology: none sent Condition: stable Disposition: no change
== END 2025-08-29 11:05 | disposition home or self-care (01) ==
PROVIDERS: PCP Internal Medicine; Visit Provider Anesthesiology
DX: M48.062 Spinal stenosis, lumbar region with neurogenic claudication (principal); M54.50 Low back pain, unspecified
CPT/HCPCS: 64483; 64484; J0665; J1010; Q9966

== ENCOUNTER 2025-09-08 12:42 | Outpatient (OUT) | payer MEDICARE, OTHER, SELFPAY ==
--- OUTSIDE RECORDS SUMMARY | 2025-09-08 12:46 | XMS_ITS | Clinical Summary ---
Author Organization [facility] Healthcare Address [address] [place] [address] Care Team Providers Care Route Clerk Name Role Phone Unavailable Primary Care Provider Unavailabl e Allergies No known active allergies Medications MedicationSigDispense QuantityRefillsLast FilledStart DateEnd DateStatus tamsulosin (Flomax) 0.4 MG 24 hr capsule 11/01/2023ctive simvastatin (Zocor) 20 MG tablet Take 1 tablet every day by oral route for 90 days.Active KLOR-CON 10 MEQ ER tablet TAKE 1 TABLET BY MOUTH IN THE MORNING WITH LASIX, DO NOT CRUSH OR CHEW01/12/2024 Active potassium chloride CR (Klor-Con M20) 20 MEQ ER tablet Active oxyCODONE (Roxicodone) 5 MG immediate release tablet Take 1 tablet every day by oral route at bedtime for 13 days.Active metoprolol tartrate (Lopressor) 25 MG tablet Take 0.5 tablets by mouth in the morning and 0.5 tablets before bedtime.Active amiodarone (Pacerone) 200 MG tablet Active aspirin 81 MG EC tablet Take 1 tablet by mouth DailyActive citalopram (CeleXA) 20 MG tablet Take 1 tablet every day by oral route for 30 days.Active clopidogrel (Plavix) 75 MG tablet Take 1 tablet by mouth DailyActive finasteride (Proscar) 5 MG tablet Take 1 tablet every day by oral route for 90 days.Active furosemide (Lasix) 40 MG tablet 01/12/2024ctive hydroCHLOROthiazide (HYDRODiuril) 12.5 MG tablet Take 1 tablet every other day by oral route for 90 days.Active lisinopril 2.5 MG tablet Active metoprolol succinate XL (Toprol-XL) 25 MG 24 hr tablet 09/18/2023ctive Active Problems ProblemNoted DateDiagnosed DateAge-related nuclear cataract of both eyes 02/11/2024 Family History Medical HistoryRelationNameCommentsCataractsMotherDiabetesMotherRelationName StatusCommentsMother Social History Tobacco UseTypesPacks/DayYears UsedDateSmoking Tobacco: FormerCigarettes Smokeless Tobacco: Never Tobacco Cessation:Counseling Given: Yes Sex and Gender InformationValueDate RecordedSex Assigned at BirthNot on file Legal EnwRdpp7801/22/2023 7:18 PM EDTGender IdentityNot on fileSexual Orientation Not on file Plan of Treatment [place] [address]
--- OUTSIDE RECORDS SUMMARY | 2025-09-08 12:46 | XMS_ITS | Clinical Summary ---
Author Organization [facility] Address [address] [place] [address] Phone Care Team Providers Care Dyed Raw Stock Blower Feeder Name Role Phone Unavailable Primary Care Provider Unavailabl e Social History Tobacco UseTypesPacks/DayYears UsedDateSmoking Tobacco: Never AssessedSex and Gender InformationValueDate RecordedSex Assigned at BirthNot on fileLegal Sex Male08/30/2024 12:27 PM EDTGender IdentityNot on fileSexual OrientationNot on file Plan of Treatment Health MaintenanceDue DateLast DoneCommentsLipid Panel1942Yearly Adult Mqpvwmdl1942DTaP/Tdap/Td Vaccines (1 - Tdap)1964Pneumococcal Vaccine (1 of 1 - PCV)1992Zoster Vaccines (1 of 2)1992RSV High Risk: (Elderly (60+) or Population) (1 - 1-dose 75+ series)2017 Influenza Vaccine (#1)5COVID-19 Vaccine (1 - 2024- season)2025 HIB VaccinesAged OutNo longer eligible based on patient's age to complete this topicHPV VaccinesAged OutNo longer eligible based on patient's age to complete this topicHepatitis A VaccinesAged OutNo longer eligible based on patient's age to complete this topicHepatitis B VaccinesAged OutNo longer eligible based on patient's age to complete this topicIPV VaccinesAged OutNo longer eligible based on patient's age to complete this topicMeningococcal VaccineAged OutNo longer eligible based on patient's age to complete this topicRotavirus VaccinesAged Out No longer eligible based on patient's age to complete this topic Insurance
--- OUTSIDE RECORDS SUMMARY | 2025-09-08 12:46 | XMS_ITS | Clinical Summary ---
Author Organization [facility] Address [address] [place] [address] Care Team Providers Care Personal Care Attendant Name Role Phone Timbo Baig DO Primary Care Provider [phone] Allergies No known active allergies Medications MedicationSigDispense QuantityRefillsLast FilledStart DateEnd DateStatus atorvastatin (Lipitor) 10 mg tablet Take 10 mg by mouth at bedtime.12/20/2022ctive aspirin 81 mg EC tablet Take 1 tablet every day by oral route.Active citalopram (CeleXA) 20 mg tablet 06/28/2022ctive clopidogrel (Plavix) 75 mg tablet Take 1 tablet by mouth in the morning.05/17/2019Active finasteride (Proscar) 5 mg tablet 10/31/2022ctive hydroCHLOROthiazide (HYDRODiuril) 12.5 mg tablet Take 12.5 mg by mouth in the morning.Active metoprolol tartrate (Lopressor) 25 mg tablet Take 0.5 tablets by mouth in the morning and at bedtime.Active tamsulosin (Flomax) 0.4 mg 24 hr capsule 11/01/2023ctive furosemide (Lasix) 40 mg tablet Indications:Acute on chronic diastolic heart failure (CMS/HCC)TAKE 1 TABLET BY MOUTH EVERY DAY IN THE MORNING 90 tablet ctive Klor-Con M10 10 mEq ER tablet Indications:Acute on chronic diastolic heart failure (CMS/HCC)TAKE 1 TABLET BY MOUTH IN THE MORNING WITH LASIX, DO NOT CRUSH OR CHEW 90 tablet ctive Active Problems ProblemNoted DateDiagnosed DateDiastolic heart ubqgwjz9312/25/2023oronary /13/2023Former hcyfrc6412/23/2022astroesophageal reflux disease 12/23/2022History of anticoagulant bewgsuh1012/23/2022Hypogonadism in male 12/23/2022Obstructive sleep apnea xgohwjhv51/26/2016Kidney stone07/22/2016 12/17/2023enign prostatic hyperplasia with urinary apwwwxqydjt34/18/2015 Abnormal results of cardiovascular function inqwcol1610/11/2014ortic valve nvufuutu64/02/2014enign essential bikrjpsoizvw39/02/2014Dizziness and giddiness 10/11/20145658Mmljrqe86/02/2014Peripheral vascular jtmaixi7710/11/2014Syncope and brfmrevu75/02/2014 Family History Medical HistoryRelationNameCommentsNo Known ProblemsFatherNo Known Problems MotherRelationNameStatusCommentsFatherMother Social History Tobacco UseTypesPacks/DayYears UsedDateSmoking Tobacco: FormerCigarettes Smokeless Tobacco: Never Tobacco Cessation:Counseling Given: Not Answered Alcohol UseStandard Drinks/WeekCommentsNot Currently0 (1 standard drink = 0.6 oz pure alcohol)[place] Safety & EnvironmentAnswerDate RecordedFear of Current or Ex-PartnerNot on file01/01/2024Emotionally AbusedNot on file01/01/2024hysically AbusedNot on file01/01/2024Sexually AbusedNot on file01/01/2024hysically or Sexually AbusedNot on file01/01/2024Sex and Gender InformationValueDate Recorded Sex Assigned at BirthNot on fileLegal PxqEujp6205/08/2022 10:50 PM EDTGender IdentityNot on fileSexual OrientationNot on file Last Filed Vital Signs Vital SignReadingTime TakenCommentsBlood Yzraffva613/7603 11:40 AM EST Frldg411801/15/2024 11:40 AM ESTTemperature--Respiratory Rate--Oxygen Saturation 95%01/15/2024 11:40 AM ESTInhaled Oxygen Concentration--Ciqxph11.4 kg (197 lb) 01/15/2024 11:40 AM PEQBiuucf987.8 cm (5' 10 )01/15/2024 11:40 AM ESTBody Mass Index28.27001/15/2024 11:40 AM EST Plan of Treatment Health MaintenanceDue DateLast DoneCommentsMedicare Annual Wellness (AWV) 2Depression Qnysowfoj17/17/1954Adult Lweicvs1105/26/1964Fall Risk Mdleyicec19/17/2007COVID-19 Vaccine ( season)5007/30/2023, 08/04/2022, 02/21/2022, Additional history existsInfluenza Vaccine (#1) 5007/30/2023, 08/04/2022, 08/10/2021, Additional history exists Pneumococcal Vaccine: 50+ TiqpaLgrsnbguy35/12/2019, 02/16/2018Zoster Vaccines Mtqnsgprk30/28/2021, 05/16/2021HIB VaccinesAged OutNo longer eligible based on patient's age to complete this topicHPV VaccinesAged OutNo longer eligible based on patient's age to complete this topicIPV VaccinesAged OutNo longer eligible based on patient's age to complete this topicMeningococcal B VaccineAged OutNo longer eligible based on patient's age to complete this topicMeningococcal VaccineAged OutNo longer eligible based on patient's age to complete this topic Rotavirus VaccinesAged OutNo longer eligible based on patient's age to complete this topic Insurance * Guarantor: Max Friedman TypeRelation to PatientDate of BirthPhone Billing AddressPersonal/YypoeqArnc1940 [place] [address] [place] [address] Care Teams Team MemberRelationshipSpecialtyStart DateEnd Date Timbo Baig DO [address] [place] [address] PCP - General12/23/22
--- NOTE | 2025-09-08 12:57 | PM.CN ---
Consult Note: HPI Data of Consult Patient: known to practice within the last 3 years Consult date: 09/08/25 Requesting Physician: Yamile Mg NP Primary Care Provider: Timbo Baig, Consult Narrative Reason for consult: low back pain Narrative: Max Friedman a 85 year old male presents for evaluation of chronic low back pain >10 years. Pt has a hx of lumbar stenosis on prior MRI, was evaluated by [facility] and recommended to consider surgical intervention however pt is not interested. Pt has longstanding low back pain unresponsive to >6 weeks of provider guided HEP, heat, ice, tylenol, and cannot take NSAIDs as he is on plavix. Pt engages in provider guided HEP 3x/week around 30 minutes without improvement, could not tolerate formal PT in the past due to increased pain. Pt notes pain 0/10, no longer experiencing pain with standing and walking. 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 - Endocarditis, valve unspecified (ICD-10) BPH (benign prostatic hyperplasia) ?N40.0 - Benign prostatic hyperplasia without lower urinary tract symptoms (ICD-10) Kidney stones ?N20.0 - Calculus of kidney (ICD-10) Hypertension ?I10 - Essential (primary) hypertension (ICD-10) High cholesterol ?E78.00 - Pure hypercholesterolemia, unspecified (ICD-10) Coronary artery disease ?I25.10 - Atherosclerotic heart disease of [place] coronary artery without angina pectoris (ICD-10) S/P extracorporeal shock wave therapy ?Z98.890 - Other specified postprocedural states (ICD-10) Surgical History History of cataract extraction ?Z98.49 - Cataract extraction status, unspecified eye (ICD-10) History of repair of rotator cuff ?Z98.890 - Other specified postprocedural states (ICD-10) History of colonoscopy ?Z98.890 - Other specified postprocedural states (ICD-10) History of hernia repair ?Z98.890 - Other specified postprocedural states (ICD-10) ?Z87.19 - Personal history of other diseases of the digestive system (ICD-10) History of hemorrhoidectomy ?Z98.890 - Other specified postprocedural states (ICD-10) Hx of prostate biopsy ?Z98.890 - Other specified postprocedural states (ICD-10) H/O transurethral resection of prostate ?Z98.890 - Other specified postprocedural states (ICD-10) ?Z90.79 - Acquired absence of other genital organ(s) (ICD-10) S/P cystoscopy ?Z98.890 - Other specified postprocedural states (ICD-10) History of heart artery stent ?Z95.5 - Presence of coronary angioplasty implant and graft (ICD-10) Hx of CABG ?Z95.1 - Presence of aortocoronary bypass graft (ICD-10) 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.2 - Presence of prosthetic heart valve (ICD-10) Family History Other Family history of colon cancer Family history of heart disease Family history of leukemia Family history of myocardial infarction Family history of stroke Social History Within the past year, how often did you have a drink containing alcohol: monthly or less Smoking status: Former smoker Non-prescribed substance use: denies use Previous occupational history: RETIRED Highest level of school completed/degree received: 10th grade Meds Home Medications and Allergies Home Medications ?Medication ?Instructions ?Recorded ?Confirmed ?Type aspirin 81 mg tablet,delayed 81 mg PO DAILY 05/12/23 08/29/25 History release (Adult Aspirin Regimen) atorvastatin 10 mg tablet 10 mg PO QDAY 05/12/23 08/29/25 History cholecalciferol (vitamin D3) 25 25 mcg PO DAILY 05/12/23 08/29/25 History mcg (1,000 unit) capsule clopidogrel 75 mg tablet 75 mg PO QDAY 05/12/23 08/29/25 History finasteride 5 mg tablet 5 mg PO QDAY 05/12/23 08/29/25 History melatonin 3 mg capsule 3 mg PO DAILY 05/12/23 08/29/25 History metoprolol succinate 25 mg 12.5 mg PO Q12H 05/12/23 08/29/25 History tablet,extended release 24 hr tamsulosin 0.4 mg capsule (Flomax) 0.4 mg PO DAILY 05/12/23 08/29/25 History acetaminophen 325 mg tablet 325 mg PO Q6H PRN pain 08/12/25 08/29/25 History (Tactinal) ascorbic acid (vitamin C) 250 mg 250 mg PO DAILY 08/12/25 08/29/25 History tablet (Vitamin C) potassium chloride 10 mEq meq PO 08/12/25 History tablet,extended release(part/cryst) (Klor-Con M) torsemide 20 mg tablet 20 mg PO DAILY 08/12/25 08/29/25 History Allergies Allergy/AdvReac Type Severity Reaction Status Date / Time No Known Drug Allergies Allergy Verified 08/29/25 10:15 Exam Constitutional Documenting provider has reviewed patient's vital signs: yes Common normals: no apparent distress, oriented x3, healthy appearing, alert and well nourished General appearance: cooperative HENME Common normals: normocephalic, hearing grossly normal bilaterally and moist oral mucous membranes Head and scalp: normocephalic Eye Common normals: PERRL Pupil: PERRL Neck & C-Spine Common normals: full ROM General: normal visual inspection Chest Common normals: inspection of chest normal Respiratory Common normals: normal respiratory effort, no retractions and no use of accessory muscles Back & Pelvis Lumbar spine/lower back: straight leg raise negative bilaterally; no pain with ROM, no lumbar spinal tenderness and straight leg raise negative left Other: sensation intact BLE strength 5/5 in BLE Neuro Common normals: oriented x3 Sensorium/orientation: alert Psych Common normals: mental status grossly normal, thought process normal, cooperative, affect normal, speech normal and activity/motor behavior normal Speech: normal speech Thought process: normal thought process Results Additional Findings Additional findings: If on a controlled substance or opioids, I have checked an [place] report on this patient and there are no aberrancies noted in the prescribing history.??If on a controlled substance or opioid a drug screen was completed and reviewed within the last year, and if there has not been a drug screen completed we ordered one today to monitor higher risk, state monitored pain medication use. As part of providing excellent, safe, comprehensive care, the following was completed at our patient's visit: 1. A medication reconciliation and review to ensure accurate knowledge of current/active medications, including asking our patients to inform us about any [id number] medications or herbal remedies/nutritional supplements/alternative remedies. 2. A review to specifically ensure our patients have had annual screening for screening for depression, screening for tobacco use, and screening for unhealthy alcohol use. For concerning screenings had a discussion with the patient, provided patient education, and recommended follow-up with primary care provider when appropriate. If patient noted with a risk of falling, they received education on strength, gait, and balance training to prevent future risk of falling. Portions of this note may have been carried over from the previous visit and updated as appropriate. Please note this office utilizes paper charting in addition to the electronic medical record. A list of current medications, vitals, and PMH is available there as the clinical staff outside of myself do not have access to [employer] charting during the clinic day operations. As part of providing quality comprehensive care the current medications, vitals, and PMH were reviewed in the paper chart. Assessment and Plan Assessment and Plan (1) Lumbar stenosis with neurogenic claudication: Assessment and Plan: JANETTE 2% previously 20% 10-20-25 left L4-5 L5-S1 TFESI >75% improvement ongoing Plan status post left L4-5 l5-s1 TFESI with significant ongoing relief, as discussed today the goal is at least 50% improvement for 3 months in pain and functional ability. f/u 3 months, sooner if needed.
== END 2025-09-08 12:43 | disposition home or self-care (01) ==
LOC: PM 12:43
PROVIDERS: PCP Internal Medicine; Visit Provider Nurse Practitioner
DX: M48.062 Spinal stenosis, lumbar region with neurogenic claudication (principal)
CPT/HCPCS: G0463

== ENCOUNTER 2025-09-16 08:57 | Outpatient (OUT) | payer MEDICARE, OTHER, SELFPAY ==
--- OUTSIDE RECORDS SUMMARY | 2025-09-15 19:07 | XMS_ITS | Continuity of Care Document ---
Author Organization [facility] Address [address] [place] [address] Phone Care Team Providers Care Matrix Inspector Name Role Phone Timbo Baig DO Primary Care Provider Timbo Baig DO Attending Provider Dandre Degroot MD Attending Provider Care Teams Patient Care Team Team Status: Active Member Role/Relationship Status Dates Abimael Cruz MD Stone Rougher Active Bhavik Ludwig Care ProviderActive Visit Care Team Team Status: Inactive Member Role/Relationship Status Dates Timbo Baig DO Primary Care Provider Active Start: July 29, 2025 End: July 29Nan Tavera ProviderActiveStart: July 29, 2025 End: July 29, 2025 Visit Care Team Team Status: Active Member Role/Relationship Status Dates Timbo Baig DO Primary Care Provider Active Start: July 30, 2025 Nan Ludwig ProviderActiveStart: July 30, 2025 Visit Care Team Team Status: Inactive Member Role/Relationship Status Dates Timbo Baig DO Primary Care Provider Active Start: August 18, 2025 End: August 18Juan Guevara ProviderActiveStart: August 18, 2025 End: August 18, 2025 Visit Care Team Team Status: Inactive Member Role/Relationship Status Dates Timbo Baig DO Primary Care Provider Active Start: September 15, 2025 End: September 15Rishi uGevaraending ProviderActiveStart: September 15, 2025 End: September 15, 2025 Chief Complaint and Reason for Visit Chief Complaint Admit Date 4 month f/u July 29, 2025 9:59am 3 MONTH F/U; CAROTID RIGHT SIDE ONLY 10: 30A August 18, 2025 10:25am I65.23 September 15, 2025 1 :48pm Reason for Visit Admit Date Anemia July [...] (peripheral artery disease) August 18, 2025 10:25am Allergies, Adverse Reactions, Alerts Allergen Type Severity Reaction Last Updated Verified Status No Known Allergies Allergy Unknown August 18, 2025 9:50amYesActive Social History Smoking Status Status Start Date End Date Date of Observa tion Ex-smoker (finding) December 29, 2024 10:19am Observation Status Observation Response Date of Response Legal Sex Male (finding) Sex Assigned At BirthMaleJuly 1939 Family History Relationship Condition Age at Onset Recorded Date/T marcia father Diabetes mellitus Unknown DeceasedUnknownmotherDeceasedUnknownHeart diseaseUnknownDiabetes mellitusUnknown sisterHeart diseaseUnknown Problems Active Problems Problem Diagnosis/Recorded Date Onset Date Status C omments S/P aortic valve replacement with bioprosthetic valve October 26, 2024 3:12pm Unknown Active Lumbar radiculopathy, chronicFebruary 2023 2:45pmUnknownActiveHerniation of intervertebral disc between L5 and E0Zdarcmmy 2023 2:46pmUnknownActive History of left common carotid artery stent placementJune 2023 12:13pm UnknownActiveChronic heart failure with preserved ejection fraction (HFpEF)April 26, 2024 12:07pmUnknownActiveEcho: LVEF 60-65%, normal RV size/function, LAE, diastolic dysfunction, mild MS, Mild - 03/2024Lumbar spondylosis with myelopathyMay 2023 3:27pmUnknownActiveMedicare annual wellness visit, subsequentMay 2024 3:05pmUnknownActiveNonrheumatic mitral (valve) stenosis March 12, 2024 3:27pmUnknownActivePrimary insomniaDecember 2023 3:30pm UnknownActiveSubclinical hypothyroidismMay 2024 9:40amUnknownActiveAnemia July 29, 2025 9:48amUnknownActiveHypercholesterolemiaMay 2023 10:33amUnknownActiveChronic kidney diseaseMay 2023 10:34amUnknownActiveS/P CABG (coronary artery bypass graft)October 26, 2024 3:12pmUnknownActiveRight- sided extracranial carotid artery stenosisJuly 2024 10:35amUnknownActive Right leg claudicationJanuary 2024 2:27pmUnknownActiveCoronary artery disease involving [place] coronary artery of [place] heart without angina pectoris October 26, 2024 3:12pmUnknownActiveFormer smokerJanuary 2024 2:27pm UnknownActive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May 2023 3:27pmUnknownActiveABI: right 0.9, left 0.8 - 08/2023,CHING: right 0.65, left 0.55 - 08/2024,s/p left popliteal artery li thotripsy, left popliteal angioplasty/stent, left common femoral artery lithotripsy and angioplasty- 09/2024,s/p right SFA popliteal atherectomy and angioplasty - 10/2024,Re-occlusion of the right femoral artery, experiencing claudication, abnormal CHING w/ exerciseElevated TSHMay 2023 12:36pmUnknown ActiveNeurogenic claudication due to lumbar spinal stenosisSeptember 2024 7:22pmUnknownActivePAD (peripheral artery disease)September 15, 2024 12:30pm UnknownActiveLeft foot dropFebruary 2023 2:45pmUnknownActiveSacroiliitis, not elsewhere classifiedFebruary 2023 2:45pmUnknownActiveCarotid stenosis, bilateralMay 2023 3:27pmUnknownActiveUS: left < 50%, right 65-70% - 04/2024 Occlusion of right femoral arteryFebruary 2024 10:47amUnknownActive HypertensionMay 2023 3:27pmUnknownActiveASHD (arteriosclerotic heart disease)March 12, 2024 3:27pmUnknownActiveCABG x 1 - OM - 2014,Lexiscan Stress: no fixed or reversible defect - arotid artery stenosis, asymptomatic August 18, 2025 10:10amUnknownActive Medications Medication Status Dose Units Route Directions Qty Days Refills S tart Date Stop Date End Date Reason(s) Instructions Adherence Clopidogrel 75 mg tablet Discontinued 75 MG PO Daily 90 90 3 February 27, 2024 12:29pm January 31, 2025 5:49amTorsemide 20 mg gizuhcGguppokvahea88UJAKOgybc10512Jekr 2023 11:00pmJune 2023 8:59amTorsemide 20 mg farkbiQvsudnuuqdjb40XMEJ Guxhj75786Cmpi 2023 8:58amJuly 2023 8:39amTorsemide 20 mg tablet Rdcplrvxntod23TDLWRvwvs98393Aksz 2nd, 2024 8:39amJuly 2023 7:44amTorsemide 20 mg tabletDiscontinued0.ROUTE.BZIQHBA058Haky 2023 7:44amJuly 2023 10:37amTAKE 1 TABLET BY MOUTH EVERY DAYTorsemide 20 mg tabletDiscontinued0.ROUTE .WESAQRC985Zlrb 2023 10:37amNovember 2023 2:34pmTAKE 1 TABLET BY MOUTH EVERY DAYMetoprolol Succinate 25 mg tablet extended release 24 hr Discontinued0.ROUTE.GLGLMTN863Kgmv 2023 8:59amOctober 2023 1:27pmTAKE 1 TABLET DAILYAtorvastatin 10 mg sosiwxQuyxfdyojzeo73LYUUKoply54770Srmcsrtz 2023 8:47pmNovember 2023 11:54amAtorvastatin 80 mg qzjnkyBiadgnerldhz44ZH OYThkhj60122Gfeklyrz 2023 11:53amNovember 2023 1:21pmAtorvastatin 80 mg qekxfbNjluszdajnjr35KBCERoqmw11119Lukysvlh 2023 1:21pmNovember 2023 2:34pmAtorvastatin 80 mg auycqhZwlzezucbsyf58LSOGMrlui60114Kjmtlgqo 2023 2:32pmOctober 2024 6:41amTorsemide 20 mg uycijvCowjobohmajo68UCIT Fzdbx45499Lqfwckgt 2023 2:33pmDecember 2023 7:37amTorsemide 20 mg tabletActive0.ROUTE.[address] 2023 7:37amTAKE 1 TABLET DAILY UnknownClopidogrel 75 mg tabletActive0.ROUTE.PZCYOLG881Pjwph 2024 5:49am TAKE 1 TABLET DAILYUnknownTramadol 50 mg wmhavoWprudw61HZDQXgoml 8 hours as needed for phwm6224Zfoz 2024 11:00pmHip pain Pain in unspecified hipmay cause sedationUnknownMetoprolol Succinate 25 mg tablet extended release 24 hrActive0.ROUTE.BXMGLPQ634Cito 2024 7:36pmTAKE 1 TABLET DAILYUnknownPotassium Chloride 10 mEq tablet,ER particles/crystals Active0.ROUTE.EQWHMYM142Lnva 2024 5:51amTAKE 1 TABLET DAILYUnknown Polysaccharide Iron Complex (Ferrex 150) 150 mg iron yeslotjEhaxbu245HIWA.QOD15 305September 2024 11:00pmUnknownFolic Acid 1 mg clibjkPbsyysgugcwq7MGCS Eheew61187Gbetulbsi 2024 11:00pmSeptember 2024 4:06pmFolic Acid 1 mg nxpgvqZwcyfm4TDPSWgucm20894Psdikpgpi 2024 4:06pmUnknownAtorvastatin 80 mg mmsptmMcbezi05BTWPVzyjo91372Sydxvoo 2024 6:41amUnknownFurosemide 40 mg lmfyzmSmwywunvxnlh21EVOPXcbyyWiq 2023 11:00pmJune 2023 8:59am Potassium Chloride (Klor-Con M10) 10 mEq tablet,ER particles/crystals Koexbmsfaqag94PONIIFiqjsAis 2023 11:00pmAugust 2023 9:35amTamsulosin 0.4 mg capsuleActive0.4MGPODailyMay 2023 11:00pmUnknownClopidogrel 75 mg oaxvbfFkhmltdljsly50HMSCXrodhpqr 2023 12:00amApril 2023 12:30pm Metoprolol Succinate 25 mg tablet extended release 24 hrDiscontinuedMGPOFebruary 2023 12:00amJuly 2023 8:59amAspirin 81 mg tablet,delayed release (DR/EC)Yquzlt7WDUEUSkyedJwctibfm 2023 12:00amFreeTextSi tablet Orally Once a day; Note: Source Status: Taking; Provider: Jovanni Izquierdo ( )UnknownAtorvastatin 10 mg dogcaaJywgwstqyanu93XUNXItlyneig 2023 12:00amNovember 2023 10:44pmFreeTextSig: TAKE 1 TABLET EVERY EVENING; Note: Source Status: Taking; Provider: Jovanni Izquierdo ( )Finasteride 5 mg xyrqxfPrddrbpajmbs5QFFDBydwmukh 2023 12:00amMay 2023 3:28pm Tamsulosin 0.4 mg capsuleDiscontinuedMGPOFebruary 2023 12:00amMay 2023 3:28pmHydrochlorothiazide 12.5 mg fsfpmgUglixrvndpkj5JBPTZBuopvDazczycz 2023 12:00amJune 2023 2:04pmFreeTextSi tablet in the morning Orally Once a day; Note: Source Status: Taking; Provider: Jovanni Izquierdo ( )Citalopram 20 mg khikogVcfbvdjifgel81BMOZPfwozCpzbngti 2023 12:00amMay 2023 3:28pmPotassium Chloride (Klor-Con M10) 10 mEq tablet,ER particles/gthpqgaqCsdwammocjea37CZEEBVurzb55877Osvrwy 2023 9:34amJuly 2024 5:51amDoxepin 6 mg psngtxZqcorxnmfqok6VUAWIxwyt at bedtime as needed for oydrv33974Nyywysef 2023 12:00amMay 2024 9:32amCholecalciferol (Vitamin D3) 125 mcg (5,000 unit) hnikfueBrpcan490ADAMLWngloQqgvrbe 2023 11:00pmUnknownMetoprolol Succinate 25 mg tablet extended release 24 hr Zmjwvqtodfat35.5MGPOTwice dailyOctober 2023 1:25pmJuly 2024 7:37pm Finasteride 5 mg ocumfhAfqlma5WULXHuffykmCeiwbfj 2023 11:00pmUnknown Citalopram 20 mg rjtrvaJrwnqt76GRETNfkunRqoagtr 2023 11:00pmUnknown Immunizations Immunization Event Date Not Given Reason Dose Number [employer] Lot Number Reason(s) Given Vaccine Information Statement (VIS) Detail Administration Location COVID-19 mRNA, Comirnaty ([employer]) December 19, 2020 COVID-19 mRNA, Comirnaty ([employer])January 09OVI mRNA, Comirnaty ([employer])August 07OVI Comirnaty ([employer]) Tri-Sucrose February 21OVI mRNA Bivalent Booster ([employer])August 04, 2022Fluzone TIV High-Dose 65YR+July 29, 2025U8800CAFPG [facility], unspecified formulationOct2017influenza, unspecified formulation August 20, 2019influenza, unspecified formulationS2021 Pneumococcal Conjugate Vaccine, 13 valentApril 2017Pneumococcal Polysacc. Vaccine, 23 valentApril 2018Zoster Vaccine Recombinant, AdjuvantedJuly 2020Zoster Vaccine Recombinant, AdjuvantedOctober 2020 Medical Equipment Device Date Implanted Device Details Multiple peripheral artery s tent, bare-metal October 04, 2024 RADHA: [id number] Issuing Agency: [facility] Device Id: [id number] Expiration Date: 2025-05-09 Lot Number: [id number] Procedures Procedure Date Performed Status CT angio neck September 15, 2025 1:57pm comple jose j CT angio head September 15, 2025 1:57pm comple jose j Relevant Diagnostic Tests and/or Laboratory Data Laboratory Results Test Collection Date/Time Result Date/Time Result Interpretation Reference Range Result Comment Performing Site Vitamin B12 Level July 30, 2025 7:24am Septembe r 2024 7:24am 1006 pg/mL [id number] at: - [facility] [address] [id number] Director: Nadir Chavez PhD, Phone: [phone] Thyroxine July 30, 2025 7:24amSept2024 7:24am0.94 ng/dL0.76-1.46Folate July 30, 2025 7:24amSept2024 7:24am8.50 ng/mLBelow low normal 8.60-58.90FerritinS2024 7:24amSept2024 7:24am49.0 ng/mL26.0-388.0Thyroid Stimulating Hormone 3rd GenSept2024 7:24am July 30, 2025 7:24am5.026 u[iU]/mLAbove high normal0.358-3.740Anion Gap July 30, 2025 7:24amSept2024 7:24am13.9BUN/Creatinine Ratio July 30, 2025 7:24amSept2024 7:24am13.4Blood Urea Nitrogen July 30, 2025 7:24amSeptember 2024 7:24am16.0 mg/dL7.0-18.0Calcium LevelSeptember 2024 7:24amSeptember 2024 7:24am8.8 mg/dL8.5-10.1 Chloride LevelSeptember 2024 7:24amSeptember 2024 7:92ce742 mmol/L 98-107Carbon Dioxide LevelSeptember 2024 7:24amSeptember 2024 7:24am 26.9 mmol/L21.0-32.0CreatinineSeptember 2024 7:24amSeptember 2024 7:24am1.19 mg/dL0.70-1.30Estimated GFR ()July 30, 2025 7:24amSeptember 2024 7:24am>60>=60 mL/min/1.73m 2Estimated GFR (Non- AmericanSept2024 7:24amSeptember 2024 7:31xl48Foals low normal>=60 mL/min/1.73m 2Glucose LevelSeptember 2024 7:24amSeptember 2024 7:38sq609 mg/dLAbove high eperkz04-269Xkktmkyij LevelSeptember 2024 7:24amSeptember 2024 7:24am3.8 mmol/L3.5-5.1Sodium LevelSeptember 2024 7:24amSept2024 7:51bm920 mmol/D530-812Udceymw Creatinine September 15, 2025 2:08pmNov2024 9:01pm1.2 mg/dL0.6-1.3ER/ESD physician is notified/shown all ISTAT results.Critical values may be confirmed by laboratorytesting ifdeemed necessary by ER attending doctor.[facility] [id number] [address] [facility] [address]Pouppum Estimated GFR (eGFR)September 15, 2025 2:08pmNov2024 9:01pm> 60.0[facility] [id number] [address] [facility] [address] Diagnostic Imaging Reports Author Garret aSntoyo [facility] HospitalReport Date/TimeNovember 2024 4:26pm [facility] [place] [address] [place] [id number] Scan Report Signed Patient: Max Friedman MR#: [id number] : 1940 Acct:[id number] Age/Sex: 85 / M ADM Date: 5 Loc: CT Room: Type: [facility] Attending Dr: Dandre Degroot MD Copies to: Dandre Degroot MD~ Ordering Provider: Dandre Degroot MD Date of Service: 09/15/25 CT/CT angio neck: I65.23 - Occlusion and stenosis of bilateral carotid avila... ([id number]) CT/CT angio head: I65.23 - Occlusion and stenosis of bilateral carotid avila... CT angiogram head and neck INDICATION: Bilateral carotid stenosis, history of left carotid stenting. Carotid Doppler ultrasound 08/18/2025 TECHNIQUE: CT angiogram head and neck was performed with coronal and sagittal and 3-D reconstruction of the vasculature.. This CT exam was performed using one or more following dose reduction techniques: Automated exposure control, adjustment of the mA and/or kV according to patient size, or use ofiterative reconstruction technique. FINDINGS: [Three-vessel arch with moderate to severe calcific plaque. There is moderate plaque which extends into the great vessels. Moderate plaque brachycephalic noted. There is severe plaque involving the right subclavian with suspected high-grade narrowing. There is CT findings suggestive of right-sided subclavian steal with diminutive contrast opacification within the region of the V1 and C7wzysulze and and normal contrast opacification V4 and V3 segments. This corresponds to the reversalof the right vertebral artery flow on Doppler ultrasound. There is short segment mild to moderate narrowing involving the right proximal V2 segment. There is moderate severe ostial plaque and vascular narrowing suspected narrowing involving the left dominant vertebral artery from the ostium to the proximal V1 segment. Remainder left vertebral artery demonstrates mild diffuse disease. Postsurgical changes status post left carotid stenting with approximately 50% in-stent stenosis. Heavy plaque involving the right carotid bifurcation extending to right proximal ICA noted measuring 2.6 cm in length. This challenges the assessment the degree of narrowing due to degree of calcificplaque both degree of narrowing is approximately 75% to 80%. Moderate calcific plaque anterior cranial ICAs with mild narrowing. ACAs are patent. Anterior communicating artery is patent. Middle cerebral arteries are grossly patent. Intradural vertebral arteries are patent. Basilar artery, basilar tip and basilar bifurcation patent. Posterior cerebral arteries are patent. Superior cerebellar is patent. Picas are patent. No saccular aneurysm. Unremarkable appearance of the dural venous sinuses. Post CABG changes upper chest. There are emphysematous changes noted. Multilevel degenerative changes cervical spine. CT/CT angio head IMPRESSION: Heavy plaque right bifurcation challenge evaluation. There is approximately 75- 80% narrowing per NASCET criteria. Postsurgical changes status post left carotid stenting with approximately 50% in-stent stenosis Moderate severe ostial narrowing involving the left vertebral artery which extends into the proximal V1 segment. CTA findings of right-sided subclavian steal with heavy plaque ostium narrowing involving the rightproximal subclavian artery and diminished enhancement involving the right proximal vertebral arterynoted. This corresponds to the Doppler ultrasound findings. Impression dictated by: Garret Santoyo M.D. 09/15/2025 4:26 PM Dictation Location: [place] [address] Transcribed By: [facility] 09/15/25 1626 Dictated By: Garret Santoyo MD 09/15/25 1612 Signed By: <Electronically signed by aGrret Santoyo MD in OV> 09/15/25 1626 Vital Signs Vital Reading Result Reference Range Collection Date/Time Height 70 [in_i] July 29, 2025 9:05lfMzjcer57.80 kgSeptember 2024 9:06amHeart Rate72 /joy80-204Wlmiajert 19th, 2025 9:06amRespiratory rate12 /srg13-43Waporaxmk 2024 9:06amBP Teufdkyk295 mm[Hg]100-140Sept2024 9:06amBP Gjczuvbkh74 mm[Hg]60-100September 2024 9:06amBMI (Body Mass Index)27.4 kg/w7Lvchjxafe 2024 9:55qgRhptny31 [in_i]August 18, 2025 9:51amWeight 83.91 kgOctober 2024 9:51amBody Xnjolmkwkaq57.8 [degF]97.6-99.0Oct[facility] 2024 9:51amHeart Rate67 /dcd98-154Gcdqztn 2024 9:51amRespiratory rate16 /yjd57-58Dydfufc 2024 9:51amOxygen saturation by Pulse ontpfctb75 %95-100 August 18, 2025 9:51amBP Gfppovbk595 mm[Hg]100-140Oct[facility] 2024 9:51amBP Lxqmrgptf12 mm[Hg]60-100Octbluegrass [facility] 2024 9:51amBMI (Body Mass Index)26.5 kg/m2 August 18, 2025 9:51am Advance Directives Advance Directive Response Recorded Date/ Time Advance Directives Yes September 15, 2024 11:47am Insurance Providers Guarantor Max Friedman Address [address] [address]Zbcrszb Info.Home Phone: Coverage Status Update:2025 Payer Group Member ID Coverage Type Subscriber Relationship to Subscriber Effective Date Expiration Date Medicare [id number] J Elder Id: [id number] [address] [place] [place] [address] Home Phone: Email: [email or web address] [id number] J Elder Id: [id number] [address] [place] [address] Home Phone: Email: [email or web address] [facility] [place] [address] [address] [facility] [address] Work Phone: Retired Id: [id number] Encounters Encounter Location(s) Arrival/Admit Date Discharge/Departure Date Discharge/Departure Disposition Provider(s) Departed Physician/ Provider [facility] July 29, 2025 9:59am July 29, 2025 10:53am Discharged to home care or self care (routine discharge) Timbo Baig DO Non-patient / Non-visit -[facility] July 30, 2025 8:24am MAKENZIE Ludwigeparted Physician/Provider Office Visit-[facility] SurgOctober 2024 10:25amOctober 2024 11:25amDischarged to home care or self care (routine discharge)Zain Torres MDDeparted Clinical-[facility] 1:48pmNov2024 1:49pmDischarged to home care or self care (routine discharge)Zain Torres MD Recent Diagnosis Onset Date Admit Date Anemia Unknown July 29, 2025 9:59am ASHD [...] 9:59am Hypertension Unknown July 29, 2025 9:59am Neurogenic claudication due to lumbar spinal stenosis Unknown July 29, 2025 9:59am Primary insomnia Unknown July 29, 2025 9:59am Subclinical hypothyroidism Unknown 2024 9:59am Carotid artery stenosis, asymptomatic Unknown August 18, 2025 10:25am Former smoker Unknown August 18 10:25am History of left common carot id artery stent placement Unknown August 18, 2025 10:25am PAD (peripheral artery disease) Unknown August 18, 2025 10:25am Assessments Diagnosis Onset Date Resolution Status Admit Date Anemia acutept2024 9:59amASHD (arteriosclerotic heart disease)acute July 29, 2025 9:59am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acuteSept2024 9:59amCarotid stenosis, bilateralacuteSept2024 9:59amChronic heart failure with preserved ejection fraction (HFpEF)acuteJuly 29, 2025 9:59amChronic kidney disease acuteSept2024 9:59amHypercholesterolemiaacuteSeptember 2024 9:59amHypertensionacutept2024 9:59amNeurogenic claudication due to lumbar spinal stenosisacuteSept2024 9:59amPrimary insomniaacute July 29, 2025 9:59amSubclinical hypothyroidismacuteSept2024 9:59amCarotid artery stenosis, asymptomaticacuteOct2024 10:25amFormer smokeracuteOctober 2024 10:25amHistory of left common carotid artery stent placementacuteOctober 2024 10:25amPAD (peripheral artery disease)acute August 18, 2025 10:25am Plan of Treatment Author Timbo Baig [facility] HospitalAuthoredSept2024 7:25pmThis patient is stable without activity related chest pain, dyspnea or lightheadedness. I instructed them to continue exercise at least 3x weekly and consume a low salt, low fat, high fiber diet. I instructed them to continue secondary prevention measures in reducing risks for recurrent events. - s/p CABG x1, AVR - 2014 - Stress testing w/o ischemia - 08/2024 Stres testing w/o ischemia - 08/2024 Continue ASA, Atorvastatin, Metoprolol without interruption I have instructed this patient on a low salt diet, exercise and daily weights. I have instructed them to notify the office for any on any unexpected weight gain > 3lbs and /or increased dyspneaon exertion, difficulty breathing during sleep, worsening lower [...] the correct procedure for obtaining home BP measurements:? - rest for 5 minutes w/o talking. [...] daily for ulcers. Continue secondary prevention measures. s/p left popliteal artery lithotripsy, left popliteal angioplasty/stent, left common femoral artery lithotripsy and angioplasty - 09/2024 s/p right SFA popliteal atherectomy and angioplasty - 10/2024 re-occlusion of the right femoral artery, experiencing claudication, abnormal CHING w/ exercise Continue ASA, Plavix and Atorvastatin without interruption [...] as well as B12, FA and Fe Instructed to keep active. Discussed referral to Neurosurgery - prefers not to have surgery and noted that Neurosurgery had suggested trial of injections I recommend referral to Pain Management for evaluation and treatment MRI 09/2023: - L5S1 marked left foraminal stenosis. - L3-5 mild to moderate spinal canal stenosis. Author Dandre Degroot [facility] HospitalAuthoredOctober 2024 10:73np07O s/p left carotid stenting now with increased righ carotid stenosis on US. - we will obtain a CTA of head and neck - continue aspirin, palvix, adn statin - RTC after CTA to discuss findings and determine if surgical intervention in indicated Future Tests Future scheduled test information is unavailable Pending Tests Pending diagnostic test information is unavailable Future Visits Future appointment information is unavailable Future Procedures Procedure Name Ordered Date Scheduled Date Vitamin B12 July 29, 2025 9:43am Basic Metabolic PanelSeptember 2024 9:43amFerritinSeptember 2024 9:43amFolateSeptember 2024 9:43am Future Medications Future medication information is unavailable Patient Instructions Patient instructions are unavailable
--- OUTSIDE RECORDS SUMMARY | 2025-09-16 09:01 | XMS_ITS | Clinical Summary ---
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 Role Phone Timbo Baig DO Primary Care Provider [phone] Allergies No known active allergies Medications MedicationSigDispense [...] ctive Active Problems ProblemNoted DateDiagnosed DateDiastolic heart hzdtirv1712/25/2023oronary errrvrnnxrnmlqqn47/13/2023Former ylvlke1512/23/2022astroesophageal reflux disease 12/23/2022History of anticoagulant qhpjigs6012/23/2022Hypogonadism in male 12/23/2022Obstructive sleep apnea gtcbxpca35/26/2016Kidney stone07/22/2016 12/17/2023enign prostatic hyperplasia with urinary ewdmwdbwlde14/18/2015 Abnormal results of cardiovascular function myqavlt3810/11/2014ortic valve vgengbmc09/02/2014enign essential nsciwcblrqum68/02/2014Dizziness and giddiness 10/11/20143624Uqhhxbh25/02/2014Peripheral vascular omfxlnx6810/11/2014Syncope and umwccmdq26/02/2014 Family History Medical HistoryRelationNameCommentsNo Known ProblemsFatherNo Known [...] Recorded Sex Assigned at BirthNot on fileLegal XyoMlju9005/08/2022 10:50 PM EDTGender IdentityNot on fileSexual OrientationNot on file Last Filed Vital Signs Vital SignReadingTime TakenCommentsBlood Aayktrdu652/7603 11:40 AM EST Oxjxs428201/15/2024 11:40 AM ESTTemperature--Respiratory Rate--Oxygen Saturation 95%01/15/2024 11:40 AM ESTInhaled Oxygen Concentration--[place]64.4 kg (197 lb) 01/15/2024 11:40 AM ZLFPxbcto862.8 cm (5' 10 )01/15/2024 11:40 AM ESTBody Mass Index28.27001/15/2024 11:40 AM EST Plan of Treatment Health MaintenanceDue DateLast DoneCommentsMedicare Annual Wellness (AWV) 2Depression Lwxxqpkft28/17/1954Adult Xhvuwgr4205/26/1964Fall Risk Mnenpdiwu79/17/2007COVID-19 Vaccine ( season)5007/30/2023, 08/04/2022, 02/21/2022, Additional history existsInfluenza Vaccine (#1) 5007/30/2023, 08/04/2022, 08/10/2021, Additional history exists Pneumococcal Vaccine: 50+ CgqxrRurhejzec39/12/2019, 02/16/2018Zoster Vaccines Rpqkqikmh02/28/2021, 05/16/2021HIB VaccinesAged OutNo longer eligible based on [...] Friedman TypeRelation to PatientDate of BirthPhone Billing AddressPersonal/Xgbqrw[address] [place] [address] [place] [address] Care Teams Team MemberRelationshipSpecialtyStart DateEnd Date Timbo Baig DO [address] [place] [address] PCP - General12/23/22
--- OUTSIDE RECORDS SUMMARY | 2025-09-16 09:02 | XMS_ITS | Clinical Summary ---
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
--- OUTSIDE RECORDS SUMMARY | 2025-09-16 09:02 | XMS_ITS | Clinical Summary ---
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
--- OUTSIDE RECORDS SUMMARY | 2025-09-16 09:04 | XMS_ITS | CCD ---
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 Role Phone TIMBO ABAD Primary Care Physician DO Timbo Abad Primary Care Provider MD Jaylon Finnegan Attending Provider [phone] Niya Baker Unavailable Timbo Abad Unavailable JENNIFFER, DR IZQUIERDO Admitting Unavailable BALL, [...] Care Unavailable BALL, DR IZQUIERDO Consulting Unavailable HILLS ., DR MCMAHON Admitting Unavailable HILLS ., DR MCMAHON Attending Unavailable BALL, DR IZQUIERDO Primary Care Unavailable HILLS ., DR MCMAHON Consulting Unavailable [place], DR IVY Jenkins Consulting Unavailable ANDERSON Ann Attending Provider [phone] DO Timbo Abad Primary Care Provider FREEMAN Baker Attending Provider Jaylon Finnegan Unavailable DO Timbo Abad Primary Care Provider FREEMAN Baker Attending Provider TITA JJ Attending Unavailable TITA JJ Attending Unavailable NAVNEET BLANC Attending Unavailable RADHA THOMSON Referring Unavailable DO Timbo Abad Primary Care Provider FREEMAN Baker Attending Provider Ball, DO Timbo Primary Care Provider Twohig, DO Bertha Pittman Attending Provider [phone] MD Abimael Cruz Referring Provider Ball, DO Timbo Primary Care Provider Twohig, DO Bertha Pittman Attending Provider MD Abimael Cruz Referring Provider Jenniffer DO, Timbo Primary Care Provider Kain HUSAIN, Jaylon Lepe Attending Provider Samuel DOMÍNGUEZ-C, Niya Jaramillo Attending Provider Jenniffer DO, Timbo Primary Care Provider Jenniffer DO, Timbo Attending Provider Jaylon Finnegan MD Attending Provider Jenniffer DO, Timbo Primary Care Provider Jenniffer DO, Timbo Attending Provider Salome HILLS Attending Unavailable Salome HILLS Attending Unavailable Jenniffer GARCIA, Timbo Primary Care Provider Dandre Degroot MD Attending Provider Jaylon Finnegan Admitting Unavailabl e Jaylon Finnegan Attending Unavailabl e [facility] Primary [facility] Unavailable Jaylon Finnegan Admitting Unavailabl e Jaylon Finnegan Attending Unavailabl e [facility] Primary Care Unavailable Jaylon Finnegan Admitting Unavailabl e Jaylon Finnegan Attending Unavailabl e Ball, Timbo Primary Care Unavailable Twohig, Ling D Admitting Unavailable Twohig, Ling D Attending Unavailable Abimael Cruz Referring Unavai Timbo Guillen Primary Care Unavailable Twohig, Ling D Attending Unavailable Jenniffer, Timbo Primary Care Unavailable Twohig, Ling D Admitting Unavailable Niya Vela Admitting Unavailable Niya Vela [facility] Jaylon Finnegan Attending Unavailabl e Jaylon Finnegan Admitting Unavailabl e [facility] Primary Care Unavailable Trixie HUSAIN, Ramu Miller Attending Unavailable Ball DO, Timbo Primary Care Provider [phone] Timbo Abad DO Attending Provider Dandre Degroot MD Attending Provider [phone] Allergies Allergy ClassificationReported Allergen(s)Allergy TypeDate of OnsetReaction(s) Facility (1 source)patient allergy list reviewed by nurse or physiciaPropensity to adverse tyvtxffpv21-77-0726Rwmvkzd:[facility] Other (1 source)No Known Medication Allergies; Translations: [No Known Medication Allergies]Propensity to adverse reactions (disorder)[facility] Repository Medications Current Medications MedicationDrug Class(es)DatesSig (Normalized)Sig (Original)aspirin 81 mg delayed release oral tablet (20 sources)Platelet Aggregation Inhibitor, Nonsteroidal Anti-inflammatory Drug Start: 11-96-5752gglu 1 tablet by mouth once dailyStart: 53-88-4629dzxf 1 mg by mouth once dailyaspirin 81 mg oral tablet mg tab(s), Oral, Daily, Refills(s) 0 Start Date: 05/17/19 Status: Orderedtake 1 tablet by mouth every twenty-four hours Aspirin 81 MG 1 tablet Orally Once a day Activeatorvastatin 80 mg oral tablet (20 sources)HMG-CoA Reductase InhibitorStart: 09-21-2024 End: 75-01-7438nanx 1 tablet by mouth once dailyStart: 04-21-2023 End: 86-67-4014afqp 1 tablet by mouth once daily in the eveningAtorvastatin 10 mg tablet Discontinued 10 MG PO January 08, 2024 12:00am September 13, 2024 10:44pm FreeTextSig: TAKE 1 TABLET EVERY EVENING; Note: Source Status: Taking; Provider: Jenniffer Izquierdo ( )cholecalciferol 0.125 mg oral capsule (16 sources)Vitamin DStart: 20-24-4434geid 1 capsule by mouth once daily citalopram 20 mg oral tablet (20 sources)Serotonin Reuptake InhibitorStart: 63-86-2567zypp 1 tablet by mouth once dailyStart: 05-17-2019 End: 07-36-1264huwr 1 tablet by mouth once dailyCitalopram 20 mg tablet Discontinued 20 MG PO Daily January 08, 2024 12:00am March 12, 2024 3:28pmtake 1 tablet by mouth every twenty-four hoursclopidogrel 75 mg oral tablet (20 sources)P2Y12 Platelet InhibitorStart: 73-06-1883Iivje: 05-17-2019 End: 98-36-9802Yhrdzqjatit 75 mg tablet Discontinued 75 MG PO January 08, 2024 12:00am February 27, 2024 12:30pmfinasteride 5 mg oral tablet (20 sources)5-alpha Reductase InhibitorStart: 21-12-6757rnks 1 tablet by mouth at bedtimeStart: 01-08-2024 End: 41-66-5209Pfrylzhipcv 5 mg tablet Discontinued 5 MG PO January 08, 2024 12:00am March 12, 2024 3:28pmStart: 07-81-9997awkt 1 tablet by mouth once daily finasteride 5 mg Tab 5 mg = 1 tab(s), Oral, Daily, # 90 tab(s), Refills(s) 3, Pharmacy: [facility], 152, cm, 04/19/22 10:18:00 EDT, Height/Length Dosing, 89.2, kg, 04/19/22 10:18:00 EDT, Weight Dosing Start Date: 02/12/23 Status: OrderedFinasteride Activefolic acid 1 mg oral tablet (6 sources)Start: 07-31-2025 End: 53-79-7908wwdg 1 tablet by mouth once daily24 hr metoprolol succinate 25 mg extended release oral tablet (20 sources)beta-Adrenergic BlockerStart: 21-15-2111Uutni: 08-16-2024 End: 12-59-8863yfnv 2 tablets by mouth twice dailyMetoprolol Succinate 25 mg tablet extended release 24 hr Discontinued 12.5 MG PO Twice daily August 16, 2024 1:25pm June 01, 2025 7:37pmStart: 94-83-5076eyxf 12.5 mg by mouth twice dailyMetoprolol Succinate Active 12.5 MG PO Twice daily August 16, 2024 1:25pm Start: 06-07-2024 End: 84-01-2793Jodnzccrmx Succinate 25 mg tablet extended release 24 hr Discontinued 0 .ROUTE .COMPLEX 90 3 June 07, 2024 8:59am August 16, 2024 1:27pm TAKE 1 TABLET DAILYStart: 06-07-2024 End: 87-31-6657Vzsyrzvssp Succinate 25 mg tablet extended release 24 hr Discontinued 0 .ROUTE .COMPLEX June 07, 2024 8:59am August 16, 2024 1:27pm TAKE 1 TABLET DAILYStart: 06-07-2024 End: 84-78-8307Lvydlivbqe Succinate Discontinued 0 .ROUTE .COMPLEX June 07, 2024 8:59am August 16, 2024 1:27pm TAKE 1 TABLET DAILYStart: 06-07-2024 End: 90-75-8861Jtcsyfxdkf Succinate Discontinued 0 .ROUTE .COMPLEX June 07, 2024 9:59am August 16, 2024 2:27pm TAKE 1 TABLET DAILYStart: 06-07-2024 Metoprolol Succinate Active 0 .ROUTE .COMPLEX June 07, 2024 9:59am TAKE 1 TABLET DAILYStart: 01-08-2024 End: 11-79-1307aitt 1 tablet by mouth every twenty-four hoursMetoprolol Succinate 25 mg tablet extended release 24 hr Discontinued MG PO January 08, 2024 12:00am June 07, 2024 8:59amStart: 01-08-2024 End: 45-67-5047Lwfuyigdiy Succinate Discontinued MG PO January 08, 2024 12:00am June 07, 2024 8:59amStart: 11-58-0174zabk 25 mg by mouth once daily Metoprolol Tartrate Active 25 MG PO Daily October 31, 2021 1:00amStart: 31-95-9405cvsmanqqfg 25 mg ER Tab 12.5 mg = 0.5 tab(s), Oral, BID, Refills(s) 0, High blood pressure Start Date: 05/17/19 Status: Orderedtake 1 tablet by mouth once dailyMetoprolol Succinate ER 25 MG 1 tablet Orally Once a day Active Metoprolol Tartrate 25 MG TAKE 1/2 TABLET TWICE A DAY for 90 ActiveMulti Vitamin+ (2 sources)Start: 75-47-8598Oiepw Vitamin+ Refill(s) 0 Start Date: 12/20/19 Status: Orderedpolysaccharide iron complex 150 mg oral capsule (3 sources)Start: 46-78-1844kbporfpzvbcpvukyf potassium chloride 10 meq extended release oral tablet (20 sources)Start: 83-76-2533Qbbab: 54-85-9434Jdaxrxirp Chloride (Okt-Otuc-Lqk M10) 10 mEq oral tablet, extended release 10 mEq = 1 tab(s), Refills(s) 0 Start Date: 09/20/24 Status: OrderedStart: 03-15-2024 End: 45-30-4435Irgmtiivy Chloride (Klor-Con M10) 10 mEq tablet,ER particles/crystals Discontinued 10 MEQ PO Daily 90 90 3 June 30, 2024 9:34am June 02, 2025 5:51amsimvastatin 20 mg oral tablet (4 sources)HMG-CoA Reductase InhibitorStart: 08-91-1338saub 20 mg by mouth at bedtimeSimvastatin Active 20 MG PO bedtime October 31, 2021 1:00amtake 1 tablet by mouth every twenty-four hourstamsulosin hydrochloride 0.4 mg oral capsule (20 sources)alpha-Adrenergic BlockerStart: 04-53-4373hnpu 1 capsule by mouth once dailyStart: 01-08-2024 End: 90-95-2236Ngrmohfsmo 0.4 mg capsule Discontinued MG PO January 08, 2024 12:00am March 12, 2024 3:28pmStart: 01-08-2024 End: 19-45-3784Ladzacngbg Discontinued MG PO January 08, 2024 12:00am March 12, 2024 3:28pmStart: 00-47-4769izuc 1 capsule by mouth once dailytamsulosin 0.4 mg Cap 0.4 mg = 1 cap(s), Oral, Daily, # 90 cap(s), Refills(s) 3, Pharmacy: [facility], 178, cm, 08/25/23 12:26:00 EDT, Height/Length Dosing, 90, kg, 08/25/23 12:26:00 EDT, Weight Dosing Start Date: 08/25/23 Status: Orderedtake 1 capsule by mouth every twenty-four hourstorsemide 20 mg oral tablet (20 sources)Loop DiureticStart: 35-71-6613Nzrih: 10-05-2024 End: 75-69-1899iaku 1 tablet by mouth once dailyTorsemide 20 mg tablet Discontinued 20 MG PO Daily 10 10 0 October 05, 2024 2:33pm October 25, 2024 7:37amStart: 42-84-4729stmc 1 tablet by mouth once dailytorsemide 20 mg Tab 20 mg = 1 tab(s), Oral, Daily, Refills(s) 0 Start Date: 09/20/24 Status: Ordered Start: 05-14-2024 End: 39-68-2441tkse 1 tablet by mouth once dailyTorsemide 20 mg tablet Discontinued 0 .ROUTE .COMPLEX 90 1 May 18, 2024 10:37am October 05, 2024 2:34pm TAKE 1 TABLET BY MOUTH EVERY DAYStart: 04-19-2024 End: 54-97-6938ipul 1 tablet by mouth once dailyTorsemide 20 mg tablet Discontinued 20 MG PO Daily 90 90 1 May 11, 2024 8:39am May 14, 2024 7:44am traMADol hydrochloride 50 mg oral tablet (7 sources)Opioid AgonistStart: 78-82-3176lwve 1 tablet by mouth every eight hours as needed for pain Completed/Discontinued Medications MedicationDrug Class(es)DatesSig (Normalized)Sig (Original)doxepin 6 mg oral tablet (10 sources)Tricyclic AntidepressantStart: 10-28-2024 End: 65-73-9885lebe 1 tablet by mouth once daily at bedtime as needed for sleep Doxepin 6 mg tablet Discontinued 6 MG PO Daily at bedtime as needed for sleep 30 30 0 October 28, 2024 12:00am March 18, 2025 9:32amfurosemide 40 mg oral tablet (20 sources)Loop DiureticStart: 03-15-2024 End: 66-93-6859ukyf 1 tablet by mouth once dailyFurosemide 40 mg tablet Discontinued 40 MG PO Daily March 14, 2024 11:00pm April 21, 2024 8:59am hydroCHLOROthiazide 12.5 mg oral tablet (20 sources)Thiazide DiureticStart: 01-08-2024 End: 57-15-4895lpgp 1 tablet by mouth once daily in the morning Hydrochlorothiazide 12.5 mg tablet Discontinued 1 TAB PO Daily January 08, 2024 12:00am April 26, 2024 2:04pm FreeTextSi tablet in the morning Orally Once a day; Note: Source Status: Taking; Provider: Jenniffer Izquierdo ( )Start: 90-51-6661zowl 1 capsule by mouth once daily hydrochlorothiazide 12.5 mg Cap 12.5 mg = 1 cap(s), Oral, Daily, # 90 cap(s), Refills(s) 3, Pharmacy: [facility], 178, cm, 08/25/23 12:26:00 EDT, Height/Length Dosing, 90, kg, 08/25/23 12:26:00 EDT, Weight Dosing Start Date: 08/25/23 Status: OrderedStart: 28-57-0713edmj 1 capsule by mouth once dailyhydrochlorothiazide 12.5 mg Cap 12.5 mg = 1 cap(s), Oral, Daily, # 90 cap(s), Refills(s) 3, Pharmacy: [facility], 152, cm, 08/27/21 10:12:00 EDT, Height/Length Dosing, 89, kg, 08/27/21 10:12:00 EDT, Weight Dosing Start Date: 12/28/21 Status: OrderedStart: 45-77-1600ffnn 12.5 mg by mouth once dailyHydrochlorothiazide Active 12.5 MG PO Daily October 31, 2021 1:00am Problems Active Problems Problem ClassificationProblemDateDocumented DateEpisodic/ChronicAcquired foot deformities (20 sources)Foot drop, left foot; Translations: [Foot-drop]EpisodicAdjustment disorders (5 sources)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; Translations: [Mixed disorders asreaction to stress]Onset: 28-24-1707Bgnskxo Calculus of urinary tract (20 sources)Kidney stone; Translations: [Calculus of kidney]Onset: 07-22-2016 EpisodicChronic kidney disease (20 sources)Chronic kidney disease; Translations: [Chronic kidney disease, unspecified]76-40-1596DezjljgAentltkbku heart failure; nonhypertensive (20 sources)Chronic diastolic (congestive) heart failure; Translations: [Acute on chronic diastolic (congestive) heart failure]Onset: 43-54-9444XlrvokeNlqmztc on above:Echo: LVEF 60-65%, normal RV size/function, LAE, diastolic dysfunction, mild MS, Mild - oronary atherosclerosis and other heart disease (20 sources)Coronary arteriosclerosis; Translations: [Atherosclerotic heart disease of [place] coronary artery without angina pectoris]Onset: 09-15-2018 69-03-3543GvtsgbiTzaigqi on above:CABG x 2014,Lexiscan Stress: no fixed or reversible defect - oronary atherosclerosis and other heart disease (3 sources)Presence of aortocoronary bypass graft; Translations: [Aortocoronary bypass status]33-64-2780FgwibxwaLtfuwwboab and other anemia (8 sources)Anemia; Translations: [Anemia, unspecified]50-89-8414Yglgvooe Disorders of lipid metabolism (20 sources)Pure hypercholesterolemia; Translations: [Pure hypercholesterolemia, unspecified]Onset: 17-05-5413OduqdwxPnsninknywsnva and diverticulitis (5 sources)Diverticulitis of colon; Translations: [Diverticulitis of intestine, part unspecified, without perforation or abscess without bleeding]Onset: 37-88-4676XnqrbvhSrjynxicvv disorders (3 sources)Gastroesophageal reflux -07-7035ZomimcjXjdsluacm hypertension (20 sources)Hypertensive disorder; Translations: [Essential (primary) hypertension]36-80-7727SulgmpxRuthr valve disorders (20 sources)History of aortic valve replacement; Translations: [Presence of prosthetic heart valve]Onset: 78-27-8312TdjbcvnVwpybhvfadm of prostate (20 sources)Benign prostatic hypertrophy with outflow obstruction; Translations: [Benign prostatic hyperplasia with lower urinary tract symptoms]Onset: 95-18-9142MuhxgwbJcytsromumjfg mental health disorders (20 sources)Male erectile disorder; Translations: [Erectile dysfunction]Onset: 95-90-4246BbuwvryBvkt disorders (18 sources)Mild recurrent major depression; Translations: [Major depressive disorder, recurrent, mild]Onset: 73-37-7543DfrslvkLcvcvtvqh or stenosis of precerebral arteries (20 sources)Bilateral stenosis of carotid arteries; Translations: [Occlusion and stenosis of bilateral carotid arteries]Onset: 09-18-2018 Resolved: 09-16-3486BeiutfiCbspxnh on above:US: left < 50%, right 65-70% - 04/2024Other aftercare (9 sources)H/O: high risk medication; Translations: [Other senior care (current) drug therapy]EpisodicOther aftercare (5 sources)Long-term current use of drug therapy; Translations: [Other senior care (current) drug therapy]EpisodicOther and unspecified benign neoplasm (6 sources)Benign neoplasm of colon; Translations: [Benign neoplasm of sigmoid colon]EpisodicOther and unspecified benign neoplasm (3 sources)Benign neoplasm of sigmoid colon; Translations: [Adenomatous polyp of sigmoid colon]EpisodicOther and unspecified benign neoplasm (5 sources)Benign neoplasm of sigmoid colon; Translations: [Benign neoplasm of sigmoid colon]EpisodicOther connective tissue disease (5 sources)Muscle pain; Translations: [MYALGIA, UNSPECIFIED SITE]EpisodicOther diseases of kidney and ureters (7 sources)Cyst of kidney; Translations: [Cyst of kidney, acquired]EpisodicOther diseases of kidney and ureters (2 sources)Cyst of kidney, acquired; Translations: [Renal cyst]EpisodicOther diseases of kidney and ureters (5 sources)Acquired renal cystic disease; Translations: [Cyst of kidney, acquired]EpisodicOther diseases of veins and lymphatics (9 sources)Peripheral venous insufficiency; Translations: [Venous insufficiency (chronic) (peripheral)]EpisodicOther diseases of veins and lymphatics (4 sources)Venous insufficiency (chronic) (peripheral)EpisodicOther ear and sense organ disorders (5 sources)Hearing loss; Translations: [Unspecified hearing loss, unspecified ear]Onset: 02-30-0129ZzbhjbaXmibn ear and sense organ disorders (4 sources)Impacted cerumen; Translations: [Impacted cerumen, left ear]Episodic Other ear and sense organ disorders (1 source)Impacted cerumen, left ear; Translations: [Impacted cerumen, left ear] EpisodicOther endocrine disorders (3 sources)Male waeahbhiufjc34-05-2668MyglzhjVkgdm injuries and conditions due to external causes (5 sources)History of fall; Translations: [History of falling]EpisodicOther male genital disorders (3 sources)Hppgsrigl68-39-1003CisevmtBzjmv nutritional; endocrine; and metabolic disorders (4 sources)Overweight; Translations: [Overweight]EpisodicOther nutritional; endocrine; and metabolic disorders (4 sources)Overweight; Translations: [Overweight]EpisodicOther screening for suspected conditions (not mental disorders or infectious disease) (20 sources)Encounter for screening for malignant neoplasm of colon; Translations: [Raised TSH level]Onset: 641663-33-0891TzrihvqpBwletwgkrg and visceral atherosclerosis (20 sources)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; Translations: [Atherosclerosis of [place] arteries of extremities with intermittent claudication, bilateral legs]Onset: 09-15-2018 ChronicComment on above:CHING: right 0.9, left 0.8 - 08/2023,CHING: right 0.65, left 0.55 - BI: right 0.9, left 0.8 - 08/2023,CHING: right 0.65, left 0.55 - 08/2024,s/p left popliteal artery lithotripsy, left popliteal angioplasty/stent, left common femoral artery lithotripsy and angioplasty- 09/2024,s/p right SFA popliteal atherectomy and angioplasty - 10/2024,Re-occlusion of the right fe moral artery, experiencing claudication, abnormal CHING w/ exerciseResidual codes; unclassified (3 sources)H/O: anticoagulant pllylau32-14-3465CnufeivaHkkaxbnd codes; unclassified (20 sources)Past history of procedure; Translations: [Other specified postprocedural states]31-87-1362CuxaeeafMadgeklf codes; unclassified (2 sources)Other specified postprocedural states; Translations: [Other postprocedural status]03-98-5339NujnwvfuDzoebmmmv and history of mental health and substance abuse codes (20 sources)Ex-smoker; Translations: [History of tobacco use]Onset: 09-15-2018 99-89-5851XaaaumbvSqezoqbuhaf; intervertebral disc disorders; other back problems (20 sources)Lumbar spondylosis with myelopathy; Translations: [Other spondylosis with myelopathy, lumbar region]ChronicSpondylosis; intervertebral disc disorders; other back problems (20 sources)Backache; Translations: [Unspecified backache]Onset: 09-15-2018 50-21-1946EsjdttdkIhoqqzu and strains (5 sources)Low back strain; Translations: [Strain of muscle, fascia and tendon of lower back, initial encounter]EpisodicThyroid disorders (11 sources)Subclinical hypothyroidism; Translations: [Other specified hypothyroidism]00-87-1203Pffzgtw Past or Other Problems Problem ClassificationProblemDateDocumented DateEpisodic/ChronicAbdominal hernia (5 sources)Inguinal hernia; Translations: [Unilateral inguinal hernia, without obstruction or gangrene, not specified as recurrent]Onset: 27-82-8175Aubruwif Anal and rectal conditions (5 sources)Stenosis of rectum and anus; Translations: [Stenosis of rectum and anus]Onset: 95-12-0587AlzhfmxkKiazpijhos and other anemia (4 sources)Anemia due to chronic blood loss; Translations: [Iron deficiency anemia secondary to blood loss (chronic)] Resolved: 21-27-2458AmyhupfXazuvetwiz and other anemia (1 source)Iron deficiency anemia secondary to blood loss (chronic); Translations: [Iron deficiency anemia secondary to blood loss (chronic)] Resolved: 36-12-4888EkzzqmuMsgoifwypqcij symptoms and ill-defined conditions (20 sources)Delay when starting to pass urine; Translations: [Increased frequency of urination]Onset: 07-22-2016 Resolved: 810080-71-8191TzxpgcowAgntgrzpdhsub and screening for infectious disease (6 sources)Suspected disease caused by 2019-nCoV; Translations: [Suspected COVID-19 virus infection]Onset: 616963-78-5970KehltaatGrqrivqwpfpt conditions of male genital organs (3 sources)Prostatitis Resolved: 608890-59-8829MlosdfgpTauymce and fatigue (5 sources)Malaise and fatigue; Translations: [Other malaise and fatigue]Onset: 29-63-7586DduwswmfKkex disorders (1 source)Mood disorders; Translations: [Major depressive disorder, recurrent episode, mild]Onset: 17-83-0304Ezrbq aftercare (5 sources)Other senior care (current) drug therapy; Translations: [OTH HALFWAY CURRENT DRUG THERAPY]Onset: 22-78-4218NohkmvfwKqiof and unspecified benign neoplasm (5 sources)Polyp of colon; Translations: [Polyp of colon]Onset: 09-15-2018 EpisodicOther circulatory disease (5 sources)Elevated blood-pressure reading without diagnosis of hypertension; Translations: [Elevated blood pressure reading without diagnosis of hypertension]Onset: 33-16-8055KicfhnhjWearr connective tissue disease (4 sources)Myalgia, unspecified site; Translations: [MYALGIA UNSPECIFIED SITE] Onset: 17-27-6651CnqixizqGcrry ear and sense organ disorders (5 sources)Disorder of external ear; Translations: [Other specified disorders of right external ear] Resolved: 91-96-3606MvcagnqoOvzdk gastrointestinal disorders (5 sources)Constipation; Translations: [Other constipation]Onset: 09-15-2018 EpisodicOther gastrointestinal disorders (4 sources)Disorder of digestive system; Translations: [Personal history of other diseases of digestive disease]Onset: 22-35-5647GcijgrsmFofgd lower respiratory disease (4 sources)Orthopnea; Translations: [Orthopnea]Onset: 67-48-3400LbmhwjakZydpw lower respiratory disease (1 source)Orthopnea; Translations: [Orthopnea]Onset: 92-93-8148FwdiiidxHcrsc upper respiratory infections (7 sources)Viral upper respiratory tract infection; Translations: [Acute upper respiratory infection, unspecified]Onset: 840694-06-2876BsjwqlslStpkpiuw codes; unclassified (5 sources)H/O: risk factor; Translations: [Other specified personal history presenting hazards to health]Onset: 86-27-6677NnqzbyeoZipuxoesizyt (1 source)Personal history of other diseases of digestive disease; Translations: [Personal history of other diseases of digestive disease]Onset: 09-15-2018 Unclassified (1 source)Unspecified backache; Translations: [Unspecified backache]Onset: 09-15-2018 Results Test NameValueInterpretationReference RangeFacilityCreatinine (Bld) [Mass/Vol] Ordered By: Dandre Degroot on 34-75-7221Dukjstqvpm [Mass/Vol]1.2 mg/dL0.6-1.3 [facility] HospitalComment on above:ER/ESD physician is notified/shown all ISTAT results.Critical values may be confirmed by laboratory testing ifdeemed necessary by ER attending doctor.No Panel InformationOrdered By: Dandre Degroot on 42-68-3984Tfwygnn Estimated GFR (eGFR)> 60.0[facility] HospitalUS carotid doppler RTon 59-54-7704IA carotid doppler RTOhio [facility] Hospital [facility] [address] [place] [address] Ultrasound Report Signed Patient: Max Friedman MR#: [id number] 11 : 1940 Acct:[id number] Age/Sex: 85 / M ADM Date: 08/18/25 Loc: [facility] Room: Type: [facility] Attending Dr: Jaylon Finnegan MD Ordering Provider: [...] Degroot M.D. 08/18/2025 1:33 PM Dictation Location: [place] [address] Tech: Karina Black Transcribed By: DANIEL 08/18/25 1333 Dictated By: Dandre Degroot MD 08/18/25 1331 Signed By: 08/18/25 1333[facility] Physician GroupGlomerular filtration rate (GFR) estimation in non- AmericanOrdered By: Timbo Abad on 07-30-2025 GFR/1.73 sq M.predicted among non-blacks MDRD (S/P/Bld) [Vol rate/Area]58 mL/min/{1.73_m2}Low>=60 mL/min/1.73m 2FSelect [facility], [facility] Laboratory - Chemistry and Chemistry - challengeOrdered By: Timbo Abad on 84-20-8950Nhghsgb [Mass/Vol]8.8 mg/dL8.5-10.1FSelect Medical [facility] Clinic Rehabilitation [facility], [place] Chloride [Moles/Vol]107 mmol/U22-728KbtkcifqfBrecksville Va / Crille HospitalCO2 [Moles/Vol]26.9 mmol/L21.0-32.0[facility] / Crille HospitalCobalamin (Vitamin B12) [Mass/Vol]1006 pg/tR846-9915ZhbutpeblBrecksville Va / Crille Hospital Comment on above:Performed at: [facility] [place] [id number] Director: Nadir Chavez PhD, Phone: [phone] [Mass/Vol]1.19 mg/dL0.70-1.30[facility] HospitalFerritin [Mass/Vol]49.0 ng/mL26.0-388.0[facility] HospitalFree T4 [Mass/Vol]0.94 ng/dL0.76-1.46[facility] HospitalGFR/1.73 sq M.predicted MDRD (S/P/Bld) [Vol rate/Area]mL/min/{1.73_m2}>=60 mL/min/1.73m 2 [facility] HospitalGlucose [Mass/Vol]109 mg/eGCjmq82-034TitsmoiirBrecksville Va / Crille HospitalPotassium [Moles/Vol]3.8 mmol/L3.5-5.1FCorey Hospitalodium [Moles/Vol]144 mmol/H340-706PrxzpovnaBrecksville Va / Crille HospitalTSH Qn5.026 m[IU]/LHigh0.358-3.740[facility] HospitalUrea nitrogen [Mass/Vol]16.0 mg/dL7.0-18.0[facility] HospitalUrea nitrogen/Creatinine [Mass ratio]13.4 mg/mgBrecksville Va / Crille HospitalNo Panel InformationOrdered By: Timbo Abad on 75-80-1905Hhonnw4.50 ng/mLLow 8.60-58.90Select [facility], Beachwooderum or plasma anion gap determinationOrdered By: Timbo Abad on 22-60-7185Phvqo gap [Moles/Vol]13.9 mmol/LFSelect Medical Cleveland Clinic Rehabilitation Hospital, BeachwoodUS ankle/arm indiceson 22-41-4159DE ankle/arm indicesOhio Valley Hospital [facility] [address] [place] [address] Ultrasound Report Signed Patient: Max Friedman MR#: [id number] 11 : 1940 Acct:[id number] Age/Sex: 84 / M ADM Date: 05/12/25 Loc: [facility] Room: Type: [facility] Attending Dr: Jaylon Finnegan MD Ordering Provider: Jaylon Finnegan MD Date of Service: 05/12/25 US/US ankle/arm indices: I70.213 - Atherosclerosis of [place] ir[place] arteries of extremiti... Copies to: Jaylon Finnegan [...] Finnegan MD,FACS,FSVS 05/12/2025 11:51 AM Dictation Location: [id number] Tech: Pam Sheehan Transcribed By: DANIEL 05/12/25 1151 Dictated By: Jaylon Finnegan MD 05/12/25 1151 Signed By: 05/12/25 1151[facility] Physician GroupUS carotid doppler BIon 43-37-9662DR carotid doppler [facility] [address] [place] [address] Ultrasound Report Signed Patient: Max Friedman MR#: [id number] 11 : 1940 Acct:[id number] Age/Sex: 84 / M ADM Date: 05/12/25 Loc: [facility] Room: Type: [facility] Attending Dr: Jaylon Finnegan MD Ordering Provider: [...] 97.3 cm/s peak systolic and 19.7 cm/s end- diastolic proximally and 81.6 cm/s peak systolic and [...] Finnegan MD,FACS,FSVS 05/12/2025 11:52 AM Dictation Location: [place] [address] Tech: Merle Donaldson Transcribed By: DANIEL 05/12/25 1152 Dictated By: Jaylon Finnegan MD 05/12/25 1151 Signed By: 05/12/25 1152[facility] Physician GroupBasophils Auto (Bld) [#/Vol]on 64-77-7516Sqdbyldek (Bld) [#/Vol]0.0 10 3/uL0.0-0.1FSelect Medical Cleveland Clinic Rehabilitation Hospital, BeachwoodBasophils/100 WBC Auto (Bld)on 85-23-7809Cbnvzbose/100 WBC (Bld)0.5 % 0.2-2.0[facility] HospitalCholesterol in LDL Calc [Mass/Vol]on 31-29-2784Xgfrkxjcary in LDL [Mass/Vol]33.6 mg/dLBrecksville Va / Crille HospitalComment on above:<100 mg/dl XWGBUOO922-956 mg/dl NEAR OR ABOVE DCMJYVS303- 159 mg/dl BORDERLINE HITG979-265 mg/dl HIGH>190 mg/dl VERY HIGHCholesterol in VLDL Calc [Mass/Vol]on 68-26-2743Onaowafuami in VLDL [Mass/Vol]14.4 mg/dL [facility] Crille HospitalEosinophils/100 WBC Auto (Bld)on 03-25-2025 Eosinophils/100 WBC (Bld)7.7 %High0.9-7.0[facility] Erythrocyte distribution width Auto (RBC) [Ratio]on 84-79-2085Ejssdlyqrgt distribution width (RBC) [Ratio]14.4 %11.0-15.0[facility] Estimated glomerular filtration rate (GFR) non- Americanon 03-25-2025 GFR/1.73 sq M.predicted among non-blacks MDRD (S/P/Bld) [Vol rate/Area]51 mL/min/{1.73_m2}Low>=60 mL/min/1.73m 2FSelect Medical Cleveland Clinic Rehabilitation Hospital, BeachwoodGlobulin Calc (S) [Mass/Vol]on 09-55-7153Wfvknwim (S) [Mass/Vol]3.3 g/dLBrecksville Va / Crille HospitalHematocrit Auto (Bld) [Volume fraction]on 03-25-2025 Hematocrit (Bld) [Volume fraction]41.9 %Low42.0-54.0[facility] HospitalHemoglobin [Mass/volume] in Bloodon 40-05-4871Dnimrukllk (Bld) [Mass/Vol] 13.7 g/dLLow14.0-18.0[facility] HospitalLaboratory - Chemistry and Chemistry - challengeon 60-17-8430Jziijax [Mass/Vol]3.5 g/dL3.4-5.0[facility] HospitalALP [Catalytic activity/Vol]70 U/C85-821JcarzvpfsBrecksville Va / Crille HospitalALT [Catalytic activity/Vol]23 U/Z64-89JvnxomicoBrecksville Va / Crille HospitalAST [Catalytic activity/Vol]17 U/G91-41QhixppfenBrecksville Va / Crille HospitalBilirubin [Mass/Vol]0.7 mg/dL0.2-1.0[facility] Calcium [Mass/Vol]9.3 mg/dL8.5-10.1FSelect Medical Cleveland Clinic Rehabilitation Hospital, BeachwoodChloride [Moles/Vol]106 mmol/A04-635BblqszrsuBrecksville Va / Crille HospitalCholesterol [Mass/Vol]106 mg/dL<=200Firelands Regional Medical CenterCholesterol in HDL [Mass/Vol]58 mg/vG81-17SodhbbuscBrecksville Va / Crille HospitalComment on above:> or =60 mg/dl - LOW CARDIOVASCULAR RISK<40 mg/dl - HIGH CARDIOVASCULAR RISKCO2 [Moles/Vol]32.9 mmol/LHigh21.0-32.0[facility] HospitalCreatinine [Mass/Vol]1.34 mg/dLHigh0.70-1.30[facility] HospitalFree T4 [Mass/Vol]0.95 ng/dL0.76-1.46[facility] HospitalGFR/1.73 sq M.predicted MDRD (S/P/Bld) [Vol rate/Area]mL/min/{1.73_m2}>=60 mL/min/1.73m 2 [facility] HospitalGlucose [Mass/Vol]108 mg/hLSugz77-453XtvbgzmvrBrecksville Va / Crille HospitalPotassium [Moles/Vol]4.2 mmol/L3.5-5.1FSelect Medical Cleveland Clinic Rehabilitation Hospital, BeachwoodProtein [Mass/Vol]6.8 g/dL6.4-8.2FSelect Medical Cleveland Clinic Rehabilitation Hospital, Beachwood Sodium [Moles/Vol]144 mmol/P762-945RxhxwisrtBrecksville Va / Crille HospitalTriglyceride [Mass/Vol]72 mg/dL<=150B[facility] HospitalTSH Qn4.515 m[IU]/LHigh 0.358-3.740[facility] HospitalUrea nitrogen [Mass/Vol]20.0 mg/dL High7.0-18.0[facility] HospitalUrea nitrogen/Creatinine [Mass ratio]14.9 mg/mgBrecksville Va / Crille HospitalLaboratory - Hematology and Cell countson 98-77-1342Vukwbowh granulocytes/100 WBC (Bld)0.2 %0.0-0.5FSelect Medical Cleveland Clinic Rehabilitation Hospital, BeachwoodLeukocytes [#/volume] corrected for nucleated erythrocytes in Blood by Automated counon 17-13-8832RCH corrected for nucl RBC Auto (Bld) [#/Vol]5.8 10 3/uL4.0-11.0[facility] Lymphocytes Auto (Bld) [#/Vol]on 54-47-5417Lbbgfqjpmto (Bld) [#/Vol]1.5 10 3/uL 1.2-3.8[facility] HospitalLymphocytes/100 WBC Auto (Bld)on 89-58-6082Bnuevxtxyjl/100 WBC (Bld)25.3 %20.5-60.0[facility] Medical CenterH Auto (RBC) [Entitic mass]on 11-20-5734MPX (RBC) [Entitic mass]30.6 pg 25.9-34.0[facility] HospitalMCHC Auto (RBC) [Mass/Vol]on 54-68-6622CGGQ (RBC) [Mass/Vol]32.7 g/dL29.9-35.2FSelect Medical Cleveland Clinic Rehabilitation Hospital, BeachwoodMCV Auto (RBC) [Entitic vol]on 37-13-2757WQJ (RBC) [Entitic vol]93.7 fL 80.0-94.0[facility] HospitalMonocytes Auto (Bld) [#/Vol]on 81-89-6626Tzgpxjhnx (Bld) [#/Vol]0.5 10 3/uL0.3-0.8[facility] HospitalMonocytes/100 WBC Auto (Bld)on 70-23-3062Vcnvxrvws/100 WBC (Bld)9.3 % 1.7-12.0[facility]ille HospitalNeutrophils Auto (Bld) [#/Vol]on 11-39-7071Flotyeyppzx (Bld) [#/Vol]3.3 10 3/uL1.4-6.5FSelect Medical Cleveland Clinic Rehabilitation Hospital, BeachwoodNeutrophils/100 WBC Auto (Bld)on 57-81-8307Bcyzunjtgml/100 WBC (Bld)57.0 % 43.0-75.0[facility] HospitalNo Panel Informationon 03-25-2025 Eosinophils # (Auto)0.5 10 3/uL0.0-0.7FSelect Medical Cleveland Clinic Rehabilitation Hospital, BeachwoodImmature Granulocyte # (Auto)0.01 10 3/uL0.00-0.03[facility] Platelet mean volume Auto (Bld) [Entitic vol]on 02-77-5765Apercjuh mean volume (Bld) [Entitic vol]11.5 fL9.5-13.5FSelect Medical Cleveland Clinic Rehabilitation Hospital, BeachwoodPlatelets Auto (Bld) [#/Vol]on 57-59-4454Cuckddzcz (Bld) [#/Vol]197 10 3/aX868-082 [facility] Crille HospitalRBC Auto (Bld) [#/Vol]on 34-74-6816DTH (Bld) [#/Vol]4.47 10 6/uLLow4.70-6.10[facility], Beachwooderum or plasma albumin/globulin mass ratioon 32-12-6723Tqtmufj/Globulin [Mass ratio]1.1 {ratio} [facility], Beachwooderum or plasma anion gap determinationon 66-42-2625Qvkzq gap [Moles/Vol]9.3 mmol/LFCorey Hospitalerum or plasma total cholesterol/high density lipoprotein (HDL) cholesterol mass rat on 66-63-3782Emcgqcwflgt.total/Cholesterol in HDL [Mass ratio]1.8 {ratio} [facility] HospitalComment on above:3.3 - 4.4 LOW RISK4.4 - 7.1 AVERAGE RISK7.1 - 11.0 MODERATE RISK>11.0 HIGH RISKUS art pvr/post Yadi 32-06-1268YR art pvr/post [facility] [place] [address] Ultrasound Report Signed with Addenda Patient: Max Friedman MR#: [id number] 11 : 1940 Acct:[id number] Age/Sex: 84 / M ADM Date: 12/07/24 Loc: Room: Type: [facility] Attending Dr: Niya Baker IT HELP 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 Copies to: Niya Baker APRN ADDENDUM 1 The right lower extremity exhibited severe disease and critical limb ischemia with ambulation. The right lower extremity CHING dropped to 0.32 during the exercise study. This is considered severe ischemia. Impression dictated by: Jaylon Finnegan MD12/15/2024 5:07 PM Dictation Location: [id number] Addendum Dictated By: Jaylon Finnegan MD Addendum [...] Jaylon Finnegan MD12/08/2024 11:26 AM Dictation Location: [place] [address] Tech: Sugey Diaz Transcribed By: DANIEL 12/08/24 112 Dictated By: Jaylon Finnegan MD 12/08/241121 Signed By: 12/08/24 [facility] Physician GroupUS UNI ankle/arm indiceson 04-78-6265DL UNI ankle/arm indicesLIMA CITY [facility] [place] [address] [place] [address] Ultrasound Report Signed Patient: Max Friedman MR#: [id number] 11 : 1940 Acct:[id number] Age/Sex: 84 / M ADM Date: 10/18/24 Loc: Room: Type: [facility] Attending Dr: Jaylon Finnegan MD Ordering [...] Ricky Stephens M.D.10/19/2024 10:37 AM Dictation Location: [place] [address] Tech: Pam Sheehan Transcribed By: DANIEL 10/19/24 1037 Dictated By: Ricky Stephens MD 10/19/24 1035 Signed By: 10/19/24 1037NoFormerly [facility] Physician [facility] BiloxiBlood Urea Nitrogenon 10-04-2024 Urea nitrogen [Mass/Vol]21 mg/dLNormalBear Lake Memorial Hospital Physician [facility] BiloxiComment on above:Performed By: #### CREAT, BUN #### [facility] [address] [place] [address] USACreatinineon 55-53-2801Jgmdswuqqe [Mass/Vol]1.40 mg/dLHigh 0.70-1.30[facility] Physician [facility] BiloxiComment on above:Performed By: #### CREAT, BUN #### [place] [address] USACreatinine Clr Calc Xezwqfuc95.56NoFormerly [facility] Physician [facility] BiloxiComment on above:Result Comment: PERFORMED BY: [place] [address] PATHOLOGIST PREVENTION COORDINATOR DK JONES M.D.Performed By: #### CREAT, BUN #### [address] [place] [address] USAEstimated GFR50.182 mL/MinSouth Florida Baptist Hospital Physician GroupComment on above:Performed By: #### CREAT, BUN #### [facility] [address] [place], [place] [address] USACreatinine [Mass/volume] in Serum or PlasmaOrdered By: Jaylon Finnegan on 30-64-6582Rjwzueuvej [Mass/Vol]Creatinine [Mass/volume] in Serum or PlasmaHigh0.70-1.30[facility] HospitalNo Panel InformationOrdered By: Jaylon Finnegan on 00-50-4838Jadjylwmw GFR (CKD-EPI) 50.182 mL/MinBrecksville Va / Crille HospitalPharmacy Creatinine Clearance (Chem45.56B[facility]ksville Va / Crille HospitalUS UNI ankle/arm indiceson 10-04-2024 US UNI ankle/arm indicesLIMA CITY HOSPITAL [place] [address] [place], [place] [address] Ultrasound Report Signed Patient: Max Friedman MR#: [id number] 11 : 1940 Acct:[id number] Age/Sex: 84 / M ADM Date: 10/04/24 Loc: Room: Type: [facility] Attending Dr: Jaylon Finnegan MD Ordering [...] Jaylon Finnegan MD10/04/2024 3:03 PM Dictation Location: [address]: Mercedes Bella Transcribed By: DANIEL 10/04/24 1503 Dictated By: Jaylon Finnegan MD 10/04/24 1502 Signed By: 10/04/24 1503[facility] Physician GroupUrea nitrogen [Mass/volume] in Serum or PlasmaOrdered By: Jaylon Finnegan on 37-95-1700Hpbv nitrogen [Mass/Vol]Urea nitrogen [Mass/volume] in Serum or Plasma06-03[facility] / Crille HospitalUrology Office/Clinic Noteon 92-12-9252Wdmwbdx Office/Clinic Note Urology Office/Clinic Note Chief Complaint [...] and history for this patient from Dr. Hills. I have reviewed and verified the staff [...] stone appears stable. Can consider operative intervention butstone also has a chance of passing on [...] [facility] [address], [place] [address] [phone] Additional Instructions: 1 yr w/ KUB Patient Education Kidney Stones, Ryea-wl-Yvra IBabita, personally scribed for Dr. Hills on 09/20/2024 12:14:24. . Documentation recorded by the erikibe, Babita Andrade, accurately reflects the services(s) I performed and decisions made by me. Authenticated by Dr. Hills on 09/20/2024 12:15:52. 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 Impotence Kidney stone Male hypogonadism Historical Nocturia Prostatitis Urinary hesitancy Urine frequency Procedure/Surgical History ESWL of kidney (05/22/2023), ESWL of kidney (08/31/2020), Cystoscopy (05/23/2020), Cystoscopic removal of ureteric stent (06/17/2019), Cystoscopic insertion of ureteric stent (06/10/2019), ESWL - Extracorporeal shockwave lithotripsy for renal calculus (04/11/2016), Lithotripsy using laser (), CABG - Coronary artery bypass graft (10/10/2014), [...] 0.5 tab(s), Oral, BID (more content not included)...[facility] HospitalComment on above:Result Comment: Electronically Signed By: Salome HILLS MD\.br\Date and Time Signed: 09/20/24 12:15 EST\.br\Electronically Co-Signed By: Babita Andrade\Date and Time Co-Signed: 09/20/24 12:14 ESTUS art pvr/post Yadi 11-12-7722KH art pvr/post [facility] [place] [address] [place] [address] Ultrasound Report Signed Patient: Max Friedman MR#: [id number] 11 : 1940 Acct:[id number] Age/Sex: 84 / M ADM Date: 08/26/24 Loc: Room: Type: [facility] Attending Dr: Bertha Hutchins DO Ordering Provider: Bertha Hutchins DO Date of Service: 08/26/24 US/US art pvr/post LE: I70.213 - Atherosclerosis of [place] ira arteries of extremiti... Copies to: Bertha Hutchins [...] Jaylon Finnegan MD08/27/2024 9:25 AM Dictation Location: [facility] Tech: Ashley Gonzalez Transcribed By: [facility] 08/27/24924 Dictated By: Jaylon Finnegan MD 08/27/24921 Signed By: 08/27/2425[facility] charito perf SPECT rest [facility] 68-02-7224PD charito perf SPECT rest [facility] [place] [address] [address] Nuclear Medicine Report Signed Patient: Max Friedman MR#: [id number] 11 : 1940 Acct:[id number] Age/Sex: 84 / M ADM Date: 08/26/24 Loc: Room: Type: [facility] Attending Dr: Bertha Hutchins DO Copies to: [...] Armstrong MD 08/25/24 1744 Signed By: 08/30/[address] [place] [address] Physician GroupSTR cardiac stress/lexiscanon 55-96-7681ZZY cardiac stress/lexiscMarion Hospital Main [address] [address] Cardiac Stress Test Signed Patient: Max Friedman MR#: [id number] 11 : 1940 Acct:[id number] Age/Sex: 84 / M ADM Date: 08/26/24 Loc: Room: Type: [facility] Attending Dr: Bertha Hutchins DO Copies to: DO Moni Worthington MD Ordering Provider: Bertha Hutchins DO Date of Service: 08/25/24 STR/STR cardiac stress/lexiscan: I25.10 - Atherosclerotic heart disease of [place] ira coronary... REFERRING PHYSICIAN: Bertha Hutchins DO REASON [...] Armstrong MD 08/25/24 1721 Signed By: 08/30/24 1220[facility] Physician GroupEstimated glomerular filtration rate (GFR) non- Americanon 06-84-1890YXZ/1.73 sq M.predicted among non- blacks MDRD (S/P/Bld) [Vol rate/Area]49 mL/min/{1.73_m2}Low>=60[facility] HospitalLaboratory - Chemistry and Chemistry - challengeon 88-94-0499Qnuzgus [Mass/Vol]9.2 mg/dL8.5-10.1FSelect Medical Cleveland Clinic Rehabilitation Hospital, Beachwood Chloride [Moles/Vol]99 mmol/I47-258RhbrdivckBrecksville Va / Crille HospitalCO2 [Moles/Vol]31.3 mmol/L21.0-32.0[facility] HospitalCreatinine [Mass/Vol]1.39 mg/dLHigh0.70-1.30[facility] HospitalGFR/1.73 sq M.predicted MDRD (S/P/Bld) [Vol rate/Area]59 mL/min/{1.73_m2}Low>=60[facility] HospitalGlucose [Mass/Vol]94 mg/yN13-926GfigclnnoBrecksville Va / Crille HospitalNatriuretic peptide B (Bld) [Mass/Vol]98.0 pg/mL<=1800.0[facility] HospitalPotassium [Moles/Vol]3.0 mmol/LLow3.5-5.1FCorey Hospitalodium [Moles/Vol]140 mmol/G166-485UzuyfoqmwBrecksville Va / Crille HospitalUrea nitrogen [Mass/Vol]30.0 mg/dLHigh7.0-18.0[facility] HospitalUrea nitrogen/Creatinine [Mass ratio]21.6 mg/mgSelect Medical Cleveland Clinic Rehabilitation Hospital, Beachwooderum or plasma anion gap determinationon 89-15-1362Cgfwr gap [Moles/Vol]12.7 mmol/LFSelect Medical Cleveland Clinic Rehabilitation Hospital, BeachwoodLaboratory - Chemistry and Chemistry - challengeon 32-27-1135Qgls T4 [Mass/Vol]0.79 ng/dL0.76-1.46 [facility] HospitalTSH Qn5.269 m[IU]/LHigh0.358-3.740B[facility] / [facility] HospitalNo Panel Informationon 76-24-7047Ogotw Ffxpvivnbxcqhdhk96 ng/zO04-799LffwthsstBrecksville Va / Crille HospitalComment on above:Performed at: [facility] [place] [id number] Director: Nadir Chavez PhD, Phone: [phone] Auto (Bld) [#/Vol]on 04-07-2024 Basophils (Bld) [#/Vol]0.0 10 3/uL0.0-0.1FSelect Medical Cleveland Clinic Rehabilitation Hospital, [place] Basophils/100 WBC Auto (Bld)on 95-38-5972Bricqsnaf/100 WBC (Bld)0.6 %0.2-2.0 [facility] HospitalCholesterol in LDL Calc [Mass/Vol]on 04-07-2024 Cholesterol in LDL [Mass/Vol]67.2 mg/dLBrecksville Va / Crille HospitalComment on above:<100 mg/dl YZVPZPR237-550 mg/dl NEAR OR ABOVE FBZACYR816-344 mg/dl BORDERLINE BFMC923-152 mg/dl HIGH>190 mg/dl VERY HIGHCholesterol in VLDL Calc [Mass/Vol]on 96-67-2129Zmrxwzzippi in VLDL [Mass/Vol]23.8 mg/dLBrecksville Va / Crille HospitalEosinophils/100 WBC Auto (Bld)on 04-07-2024 Eosinophils/100 WBC (Bld)9.8 %High0.9-7.0[facility] Erythrocyte distribution width Auto (RBC) [Ratio]on 92-64-2456Yfthvtclmcn distribution width (RBC) [Ratio]14.0 %11.0-15.0[facility] Estimated glomerular filtration rate (GFR) non- Americanon 04-07-2024 GFR/1.73 sq M.predicted among non-blacks MDRD (S/P/Bld) [Vol rate/Area]55 mL/min/{1.73_m2}Low>=60[facility]ille HospitalGlobulin Calc (S) [Mass/Vol]on 67-65-6606Ntpyasvi (S) [Mass/Vol]3.8 g/dLBrecksville Va / Crille HospitalHematocrit Auto (Bld) [Volume fraction]on 31-89-5884Znscsocaad (Bld) [Volume fraction]44.7 %42.0-54.0[facility] HospitalHemoglobin [Mass/volume] in Bloodon 39-96-6245Buuaqdgrzl (Bld) [Mass/Vol]14.3 g/dL14.0-18.0 [facility] HospitalLaboratory - Chemistry and Chemistry - challengeon 31-76-5170Wnktlbx [Mass/Vol]3.4 g/dL3.4-5.0[facility] HospitalALP [Catalytic activity/Vol]67 U/H12-396KvctyskohBrecksville Va / Crille HospitalALT [Catalytic activity/Vol]22 U/K39-44LwsnfajrqBrecksville Va / [facility] AST [Catalytic activity/Vol]20 U/L75-08OldxainiyBrecksville Va / [facility] Hospital Bilirubin [Mass/Vol]1.0 mg/dL0.2-1.0[facility] HospitalCalcium [Mass/Vol]8.9 mg/dL8.5-10.1FSelect Medical Cleveland Clinic Rehabilitation Hospital, BeachwoodChloride [Moles/Vol] 103 mmol/Z93-595VmyellheeBrecksville Va / Crille HospitalCholesterol [Mass/Vol]150 mg/dL <=200[facility] HospitalCholesterol in HDL [Mass/Vol]59 mg/dL40-60 [facility] HospitalComment on above:> or =60 mg/dl - LOW CARDIOVASCULAR RISK<40 mg/dl - HIGH CARDIOVASCULAR RISKCO2 [Moles/Vol]29.8 mmol/L21.0-32.0[facility] HospitalCreatinine [Mass/Vol]1.26 mg/dL 0.70-1.30[facility] HospitalGFR/1.73 sq M.predicted MDRD (S/P/Bld) [Vol rate/Area]mL/min/{1.73_m2}>=60[facility] HospitalGlucose [Mass/Vol]109 mg/rSQzho48-103QzjxsdinqBrecksville Va / Crille HospitalNatriuretic peptide B (Bld) [Mass/Vol]104.0 pg/mL<=1800.0[facility] Potassium [Moles/Vol]3.4 mmol/LLow3.5-5.1FSelect Medical Cleveland Clinic Rehabilitation Hospital, [place] Protein [Mass/Vol]7.2 g/dL6.4-8.2FCorey Hospitalodium [Moles/Vol]140 mmol/A744-476CfdhggxqtBrecksville Va / Crille HospitalTriglyceride [Mass/Vol]119 mg/dL<=150B[facility]ville [facility] / [facility] HospitalTSH Qn8.383 m[IU]/LHigh 0.358-3.740[facility] HospitalUrea nitrogen [Mass/Vol]21.0 mg/dL High7.0-18.0[facility] HospitalUrea nitrogen/Creatinine [Mass ratio]16.7 mg/mgBrecksville Va / Crille HospitalLaboratory - Hematology and Cell countson 72-20-1060Pcxvugdi granulocytes/100 WBC (Bld)0.4 %0.0-0.5FSelect Medical Cleveland Clinic Rehabilitation Hospital, BeachwoodLeukocytes [#/volume] corrected for nucleated erythrocytes in Blood by Automated counon 35-35-0672GEH corrected for nucl RBC Auto (Bld) [#/Vol]5.2 10 3/uL4.0-11.0[facility] Lymphocytes Auto (Bld) [#/Vol]on 80-32-3555Dyqasmddogl (Bld) [#/Vol]1.5 10 3/uL 1.2-3.8[facility] Crille HospitalLymphocytes/100 WBC Auto (Bld)on 24-11-7388Bekhcczpgvu/100 WBC (Bld)28.6 %20.5-60.0[facility]field Medical CenterH Auto (RBC) [Entitic mass]on 95-68-2073JTW (RBC) [Entitic mass]30.2 pg 25.9-34.0[facility] Crille HospitalMCHC Auto (RBC) [Mass/Vol]on 37-30-0837EONX (RBC) [Mass/Vol]32.0 g/dL29.9-35.2FSelect Medical Cleveland Clinic Rehabilitation Hospital, BeachwoodMCV Auto (RBC) [Entitic vol]on 57-30-8459JAD (RBC) [Entitic vol]94.5 fL High80.0-94.0[facility] HospitalMonocytes Auto (Bld) [#/Vol]on 58-22-0329Moljqjeuh (Bld) [#/Vol]0.6 10 3/uL0.3-0.8[facility] HospitalMonocytes/100 WBC Auto (Bld)on 60-61-2711Ohltekseo/100 WBC (Bld)11.7 % 1.7-12.0[facility] Crille HospitalNeutrophils Auto (Bld) [#/Vol]on 31-29-9178Uogiypdqysi (Bld) [#/Vol]2.6 10 3/uL1.4-6.5FSelect Medical Cleveland Clinic Rehabilitation Hospital, BeachwoodNeutrophils/100 WBC Auto (Bld)on 35-56-2450Xetkkxurezj/100 WBC (Bld)48.9 % 43.0-75.0[facility] HospitalNo Panel Informationon 04-07-2024 Eosinophils # (Auto)0.5 10 3/uL0.0-0.7FSelect Medical Cleveland Clinic Rehabilitation Hospital, BeachwoodImmature Granulocyte # (Auto)0.02 10 3/uL0.00-0.03[facility] Platelet mean volume Auto (Bld) [Entitic vol]on 85-56-5394Gpcalycu mean volume (Bld) [Entitic vol]11.2 fL9.5-13.5FSelect Medical Cleveland Clinic Rehabilitation Hospital, BeachwoodPlatelets Auto (Bld) [#/Vol]on 45-71-7745Ulirxkpwq (Bld) [#/Vol]196 10 3/wJ418-712 [facility] HospitalRBC Auto (Bld) [#/Vol]on 12-66-6036OPL (Bld) [#/Vol]4.73 10 6/uL4.70-6.10[facility], Beachwooderum or plasma albumin/globulin mass ratioon 18-39-5709Mfpxtjj/Globulin [Mass ratio]0.9 {ratio} [facility], Beachwooderum or plasma anion gap determinationon 47-86-0083Fydgu gap [Moles/Vol]10.6 mmol/LFCorey Hospitalerum or plasma total cholesterol/high density lipoprotein (HDL) cholesterol mass rat on 64-59-1566Uhztrkvxkhi.total/Cholesterol in HDL [Mass ratio]2.5 {ratio} [facility] Cr[facility] HospitalComment on above:3.3 - 4.4 LOW RISK4.4 - 7.1 AVERAGE RISK7.1 - 11.0 MODERATE RISK>11.0 HIGH NPFA11ss *You can take lasix as needed. Take if you develop worsening shortness of breath, abdominal bloating, leg swelling, or weight gain of 2-3lbs in a day or 5lbs in a week. Can take for 3 days or until weight or symptoms improve. *When you take lasix, take potassium with it. *Follow-up with vascular in [place] for your leg weakness and painNormal [facility] CenterOffice Visiton 22-79-5431Dslscn-up visit [id number] Max Friedman 1940 M Date Provider Department Center 01/15/2024 Manoj-TITA JJ CARD [facility] Family History Problem Relation Age of Onset No Known Problems Mother No Known Problems Father Family Status - Relation Status Age at Mother Father Level of Service:52203 [place] OFFICE/OUTPATIENT ESTABLISHED MOD MDM 30 MIN Reason for Visit and Comments: Coronary Artery Disease [187] Congestive Heart Failure [127] Hypertension [169198] Hyperlipidemia [182]NormalUnParkview Health36on Regarding labs from 12/26/2023: SANG Dumont MA Please let him know his labs show his kidney function is stable. Continue current meds. Thanks LM on patient's VM.Paulding County HospitalEstimated glomerular filtration rate (GFR) non- Americanon 25-15-6550ZEM/1.73 sq M.predicted among non-blacks MDRD (S/P/Bld) [Vol rate/Area]58 mL/min/{1.73_m2}>=60[facility] HospitalLaboratory - Chemistry and Chemistry - challengeon 09-46-1356Ohqegih [Mass/Vol]9.3 mg/dL8.5-10.1FSelect Medical [facility], [place] Chloride [Moles/Vol]101 mmol/D62-642YfnbaklzbBrecksville Va / Crille HospitalCO2 [Moles/Vol]28.4 mmol/L21.0-32.0[facility] HospitalCreatinine [Mass/Vol]1.21 mg/dL0.70-1.30[facility] HospitalGFR/1.73 sq M.predicted MDRD (S/P/Bld) [Vol rate/Area]mL/min/{1.73_m2}>=60[facility] HospitalGlucose [Mass/Vol]117 mg/iS19-478PnwwhguceBrecksville Va / [facility] Hospital Potassium [Moles/Vol]3.9 mmol/L3.5-5.1FCorey Hospitalodium [Moles/Vol]138 mmol/X028-191PlddnhcdoBrecksville Va / Crille HospitalUrea nitrogen [Mass/Vol]19.0 mg/dL7.0-18.0[facility] HospitalUrea nitrogen/Creatinine [Mass ratio]15.7 mg/mgSelect Medical [facility] Clinic Rehabilitation Hospital, Beachwooderum or plasma anion gap determinationon 76-25-8310Qosye gap [Moles/Vol]12.5 mmol/L [facility]37on *Start taking lasix 40mg daily along with potassium supplements. *Have labs done around 12/26/2023. *Monitor your weight daily, first thing in the morning after you use the bathroom and before you eat breakfast. *Try to not drink more than 2000ml of fluids a day *Limit sodium/salt intakeNormalUniversOhioHealth Southeastern Medical CenterOffice Visiton 18-26-2238Kgqbyk-up [id number] Max Friedman 1940 M Date Provider Department Center 12/17/2023 TITA STEWART [facility] Family History Problem Relation Age of Onset No Known Problems Mother No Known Problems Father Family Status - Relation Status Age at Mother Father Level of Service:46452 [place] OFFICE/OUTPATIENT ESTABLISHED MOD MDM 30 [facility] CenterLaboratory - Microbiology and Antimicrobial susceptibilityOrdered By: Aury Ann on 04-12-2023S. pyogenes Ag IA Ql (Unsp spec)[facility] HospitalNo Panel InformationOrdered By: Aury Ann on [id number] BFOhio State Harding HospitalCBC AUTO DIFFon 99-23-1011WSEB #0.0 103/ulNormal0.0-0.1The [facility] Hospital For RehabilitationComment on above:Performed By: #### CBC #### [facility] [address] [address] [address] Giacomo MaceBasophils/100 WBC (Bld)0.5 %Normal0.2-2.0[facility] Comment on above:Performed By: #### CBC #### [facility] [address] [address] [address] Giacomo Foster #0.4 103/ulNormal0.0-0.7The [facility] Hospital For RehabilitationComment on above: Performed By: #### CBC #### [facility] [address] [address] [address] Giacomo Huntosinophils/100 WBC (Bld)7.0 %Normal0.9-7.0The [facility] Comment on above:Performed By: #### CBC #### [facility] [address] [address] [address] Giacomo Huntrythrocyte distribution width (RBC) [Ratio]14.6 %[place]26.0-15.0 The [facility] Hospital For RehabilitationComment on above:Performed By: #### CBC #### [facility] [address] [place] [address] Dr. Giacomo MaceHematocrit (Bld) [Volume fraction]46.9 %Fztery39.0-54.0The [facility]row County Hospitalment on above:Performed By: #### CBC #### [facility] [address] [place] [address] Dr. Giacomo MaceHemoglobin (Bld) [Mass/Vol]15.1 g/dDKmstoi26.0-18.0The [facility] For RehabilitationComment on above:Performed By: #### CBC #### [facility] [address] [place] [address] Dr. Giacomo MaceIG #0.02 10e3/ulNormal0.00-0.03The [facility] Hospital For RehabilitationComment on above:Performed By: #### CBC #### [facility] [address] [place] [address] Dr. Giacomo MaceIG %0.4 %Normal0.0-0.5The [facility] Hospital For RehabilitationComment on above: Performed By: #### CBC #### [facility] [address] [place] [address] Dr. Giacomo Sommers #1.4 103/ulNormal1.2-3.8The [facility] Hospital For RehabilitationComment on above:Performed By: #### CBC #### [facility] [address] [place] [address] Dr. Giacomo Jaffemphocytes/100 WBC (Bld)25.3 %Qkyipn62.5-60.0The [facility] Hospital For RehabilitationComment on above:Performed By: #### CBC #### [facility] [address] [place] [address] Dr. Giacomo MaceMANUAL DIFF REQNONormalThe Children[facility]S Hospital For RehabilitationComment on above: Performed By: #### CBC #### [facility] [address] [place] [address] Dr. Giacomo Contreras (RBC) [Entitic mass]29.6 xjOxjiyo53.9-34.0The [facility] Hospital For RehabilitationComment on above:Performed By: #### CBC #### [facility] [address] [address] [address] Giacomo SummersHC (RBC) [Mass/Vol]32.2 g/fNCnence47.9-35.2The [facility] For RehabilitationComment on above:Performed By: #### CBC #### [facility] [address] [place] [address] Dr. Giacomo SummersV (RBC) [Entitic vol]92.0 nWYiehtz17.0-94.0The [facility] Hospital For RehabilitationComment on above:Performed By: #### CBC #### [facility] [address] [place] [address] Dr. Giacomo Rodriguez #0.6 103/ulNormal0.3-0.8The [facility] Hospital For RehabilitationComment on above:Performed By: #### CBC #### [facility] [address] [place] [address] Dr. Giacomo Rootocytes/100 WBC (Bld)10.4 %Normal1.7-12.0The [facility] Comment on above:Performed By: #### CBC #### [facility] [address] [place] [address] Dr. Giacomo Johansen #3.2 103/ulNormal1.4-6.5The [facility] Hospital For RehabilitationComment on above:Performed By: #### CBC #### [facility] [address] [place] [address] Dr. Giacomo Huertautrophils/100 WBC (Bld)56.4 %Jinpds82.0-75.0The [facility] Hospital For RehabilitationComment on above:Performed By: #### CBC #### [facility] [address] [place] [address] Dr. Giacomo Restrepolet mean volume (Bld) [Entitic vol]10.5 fLNormal9.5-13.5The [facility] Hospital For RehabilitationComment on above:Performed By: #### CBC #### [facility] [address] [place] [address] Dr. Giacomo MacePLT227 103/itIsxffi581-226Xpn [facility] HospitalComment on above: Performed By: #### CBC #### [facility] [address] [address] [address] Giacomo MaceRBC5.10 106/ulNormal4.70-6.10The [facility] on above:Performed By: #### CBC #### [facility] [address] [address] [address] Giacomo MaceWBC5.7 103/ulNormal4.0-11.0The [facility] on above: Performed By: #### CBC #### [facility] [address] [place] [address] Dr. Giacomo NguyenID PROFILEon 07-26-5905WDSE-HDL RATIO NORMSEE [facility] on above:Result Comment: 3.3 - 4.4 LOW RISK 4.4 - 7.1 AVERAGE RISK 7.1 - 11.0 MODERATE RISK >11.0 HIGH RISKPerformed By: #### BMP, LIPID #### [facility] [address] [place] [address] Dr. Giacomo Montalvoesterol [Mass/Vol]219 mg/dLCritically high<=200The [facility] on above:Performed By: #### BMP, LIPID #### [facility] [address] [place] [address] Dr. Giacomo MaceCholesterol in HDL [Mass/Vol]61 mg/dLCritically gykq75-53Ovg [facility] on above:Performed By: #### BMP, LIPID #### [facility] [address] [place] [address] Dr. Giacomo MaceCholesterol in LDL [Mass/Vol]136.4 mg/dLCincinnati Children's Hospital Medical Center on above:Performed By: #### BMP, LIPID #### [facility] [address] [place] [address] Dr. Giacomo Montalvoesterblair.total/Cholesterol in HDL [Mass ratio]3.6 {ratio} NormalThe [facility] on above:Performed By: #### BMP, LIPID #### [facility] [address] [address] [address] Giacomo Strauss NORMAL> or = 60 mg/dl - LOW CARDIOVASCULAR RISK <40 mg/dl - HIGH CARDIOVASCULAR RISKParkview HealthComment on above:Performed By: #### BMP, LIPID #### [facility] [address] [address] [address] Giacomo Morton CALC NORMALSEE BELOWParkview HealthComment on above:Result Comment: <100 mg/dl OPTIMAL 100 - 129 mg/dl NEAR OR ABOVE OPTIMAL 130 - 159 mg/dl BORDERLINE HIGH 160 - 189 mg/dl HIGH >190 mg/dl VERY HIGH Performed By: #### BMP, LIPID #### [facility] [address] [address] [address] Giacomo MaceTriglyceride [Mass/Vol]108 mg/dLNormal<=150The [facility] Comment on above:Performed By: #### BMP, LIPID #### [facility] [address] [address] [address] Giacomo RealLDL CALC21.6 mg/dLNoGrand Lake Joint Township District Memorial HospitalComment on above: Performed By: #### BMP, LIPID #### [facility] [address] [place] [address] Dr. Giacomo Lozano CHEM 8 (BAS METB)on 46-65-5127Qxgdw gap [Moles/Vol]9.6 mmol/LNormalCleveland Clinic Hillcrest HospitalComment on above:Performed By: #### BMP, LIPID #### [facility] [address] [address] [address] Giacomo MaceCalcium [Mass/Vol]9.3 mg/dLNormal8.5-10.1[facility] Comment on above:Performed By: #### BMP, LIPID #### [facility] [address] [place] [address] Dr. Giacomo MaceChloride [Moles/Vol]104 mmol/COkrhdc70-255Pzt [facility] Comment on above:Performed By: #### BMP, LIPID #### [facility] [address] [place] [address] Dr. Giacomo MaceCO2 [Moles/Vol]27.8 mmol/DNezdqc54.0-32.0The [facility] Comment on above:Performed By: #### BMP, LIPID #### [facility] [address] [address] [address] Giacomo MaceCreatinine [Mass/Vol]1.08 mg/dLNormal0.70-1.30The [facility] For RehabilitationComment on above:Performed By: #### BMP, LIPID #### [facility] [address] [address] [address] Giacomo HuntGFR-AF RUSSIAN>60Normal>=60The [facility] Hospital For RehabilitationComment on above:Performed By: #### BMP, LIPID #### [facility] [address] [place] [address] Dr. Giacomo Nguyen-NON AF RUSSIAN>60Normal>=60The [facility] Hospital For RehabilitationComment on above:Performed By: #### BMP, LIPID #### [facility] [address] [place] [address] Dr. Giacomo MaceGlucose [Mass/Vol]111 mg/dLCritically ulij03-326Wel [facility] For RehabilitationComment on above:Performed By: #### BMP, LIPID #### [facility] [address] [place] [address] Dr. Giacomo MacePotassium [Moles/Vol]4.4 mmol/LNormal3.5-5.1[facility] Comment on above:Performed By: #### BMP, LIPID #### [facility] [address] [place] [address] Dr. Giacomo MaceSodium [Moles/Vol]137 mmol/NRyuhju531-879Lco [facility] Comment on above:Performed By: #### BMP, LIPID #### [facility] [address] [address] [address] Giacomo MaceUrea nitrogen [Mass/Vol]27.0 mg/dLCritically high7.0-18.0The [facility] For RehabilitationComment on above:Performed By: #### BMP, LIPID #### [facility] [address] [place] [address] [address] [address] Giacomo MaceUrea nitrogen/Creatinine [Mass ratio]25.0 mg/mgNoGrand Lake Joint Township District Memorial HospitalComment on above:Performed By: #### BMP, LIPID #### [facility] [address] [id number] Gooden ChangECHOCARDIO M/2D COMPLETEon 39-43-9850RHDVGJUKUB M/2D COMPLETE Patient: MAX FRIEDMAN Exam Date: 07/09/2022 : 1940 Gender:M Ordering : TITA [facility] Admission #: [id number] Family : DR TIMBO ABAD D.O. Order #: [id number] CLICK HERE TO VIEW EXAM ECHOCARDIOGRAM REPORT [...] by: Ilene Davis M.D. on 07/10/2022 at 14:46Parkview HealthCPKon 95-70-4775ZG [Catalytic activity/Vol]96 U/KHwmtcx40-730Yxv [facility] For RehabilitationComment on above:Performed By: #### CRP, CK #### [facility] [address] [place] [address] Dr. Giacomo Cornelius 86-40-9734XQH [Mass/Vol]mg/LNormal<=1.0The [facility] Hospital For RehabilitationComment on above:Performed By: #### CRP, CK #### [facility] [address] [address] [address] Gooden ChangELECTROLYTESon 14-48-3313Yxnrj gap [Moles/Vol]11.8 mmol/LNormal The [facility] Hospital For RehabilitationComment on above:Performed By: #### ELEC #### [facility] [address] [place] [address] Dr. Giacomo MaceChloride [Moles/Vol]104 mmol/PKoszcv41-184Uoh [facility] Comment on above:Performed By: #### ELEC #### [facility] [address] [place] [address] Dr. Giacomo MaceCO2 [Moles/Vol]27.5 mmol/GXsjjce05.0-32.0The [facility] Comment on above:Performed By: #### ELEC #### [facility] [address], [place] [address] Dr. Giacomo MacePotassium [Moles/Vol]4.3 mmol/LNormal3.5-5.1[facility] Comment on above:Performed By: #### ELEC #### [facility] [address], [place] [address] Dr. Giacomo MaceSodium [Moles/Vol]139 mmol/MCovlds712-733SjuCleveland Clinic Hillcrest Hospital Comment on above:Performed By: #### ELEC #### [facility] [address], [place] [address] Dr. Giacomo MaceXR KUB 1 VIEWon 29-63-0032NT KUB 1 VIEWEXAMINATION: XR KUB 1 VIEW HISTORY: Kidney stone [...] Electronically authenticated by: IVY DOMINGUEZ Date: 2022-04-18 08:04[facility] Vital Signs Date TimeVital SignValuePerforming MeqfatejdQjwigppg50-72-9690 10:51-0400Body yszgtp240.8 cmBenjamin Ball DO Work Phone: [facility]10-09-2025 10:51-0400 Body mass index (BMI) [Ratio]26.5 kg/z0Bubztxqw Ball DO Work Phone: [facility]10-09-2025 10:51-0400 Body erhrsbzsajy56.8 [degF]Timbo Ball DO Work Phone: [facility]10-09-2025 10:51-0400 Body .91 kgBenjamin Ball DO Work Phone: [facility]10-09-2025 10:51-0400 Diastolic blood mjrypdnc71 mm[Hg]Timbo Ball DO Work Phone: 1(419)[address] [place], [place] 3427510-09-2025 10:51-0400 Heart rate67 /minBenjamin Ball DO Work Phone: 1(419)[address] [place], [place] 3427510-09-2025 10:51-0400 Respiratory rate16 /minBenjamin Ball DO Work Phone: 1(419)[address] [place], [place] 3427510-09-2025 10:51-0400 SaO2% (BldA) [Mass fraction]97 %Timbo Ball DO Work Phone: 1(419)[address] [place], [place] 3427510-09-2025 10:51-0400 Systolic blood xtvvojbz516 mm[Hg]Timbo Ball DO Work Phone: 1(419)[address] [place], [place] 3427509-19-2025 10:06-0400 Body dsfeub485.8 cmBenjamin Ball DO Work Phone: 1(419)[address] [place], [place] 3427509-19-2025 10:06-0400 Body mass index (BMI) [Ratio]27.4 kg/o7Bxcmwrsy Ball DO Work Phone: 1(419)[address] [place], [place] 3427509-19-2025 10:06-0400 Body cxglpe36.8 kgBenjamin Ball DO Work Phone: 1(419)[address] [place], [place] 3427509-19-2025 10:06-0400 Diastolic blood jxzciiok34 mm[Hg]Timbo Ball DO Work Phone: 1(419)[address] [place], [place] 3427509-19-2025 10:06-0400 Heart rate72 /minBenjamin Ball DO Work Phone: 1(419)[address] [place], [place] 3427509-19-2025 10:06-0400 Respiratory rate12 /minBenjamin Ball DO Work Phone: 1(419)[address] [place], [place] 3427509-19-2025 10:06-0400 Systolic blood mm[Hg]Timbo Ball DO Work Phone: 1(419)[address] [place], [place] 3427507-03-2025 11:18-0400 Diastolic blood cacracot72 mm[Hg]Timbo Ball DO Work Phone: 1419)[address] [place], [place] 3427507-03-2025 11:18-0400 Systolic blood jfmvlpqu88 mm[Hg]Timbo Ball DO Work Phone: 1419)[address] [place], [place] 3427507-03-2025 11:07-0400 Body .8 cmBenjamin Ball DO Work Phone: 1419)[address] [place], [place] 3427507-03-2025 11:07-0400 Body mass index (BMI) [Ratio]27.5 kg/s8Ebncapis Ball DO Work Phone: 1419)[address] [place], [place] 3427507-03-2025 11:07-0400 Body qrvthjqoghe67.1 [degF]Timbo Ball DO Work Phone: 1419)[address] [place], [place] 3427507-03-2025 11:07-0400 Body qkdayr30.08 kgBenjamin Ball DO Work Phone: 1419)[address] [place], [place] 3427507-03-2025 11:07-0400 Heart rate51 /minBenjamin Ball DO Work Phone: 1419)[address] [place], [place] 3427507-03-2025 11:07-0400 SaO2% (BldA) [Mass fraction]99 %Timbo Ball DO Work Phone: 1419)[address] [place], [place] 3427505-09-2025 10:15-0400 Body siefpl480.8 cmBenjamin Ball DO Work Phone: 1419)[address] [place], [place] 3427505-09-2025 10:15-0400 Body mass index (BMI) [Ratio]27.6 kg/p0Svorgdbv Ball DO Work Phone: 1419)[address] [place], [place] 3427505-09-2025 10:15-0400 Body jhrucs91.14 kgBenjamin Ball DO Work Phone: 1419)[address] [place], [place] 3427505-09-2025 10:15-0400 Diastolic blood wlxibxyd26 mm[Hg]Timbo Ball DO Work Phone: 1419)[address] [place], [place] 3427505-09-2025 10:15-0400 Heart rate76 /minBenjamin Ball DO Work Phone: 1419)[facility] [place], [place] 1481805-09-2025 10:15-0400 Respiratory rate12 /minBenjamin Ball DO Work Phone: 1419)[address] [place], [place] 3427505-09-2025 10:15-0400 Systolic blood ahnpwgvn271 mm[Hg]Timbo Ball DO Work Phone: 1(419)[address] [place], [place] 3427502-19-2025 10:21-0500 Body valccx127.8 cmBenjamin Ball DO Work Phone: 1419)[address] [place], [place] 3427502-19-2025 10:21-0500 Body mass index (BMI) [Ratio]27.2 kg/l8Kjrfkmxx Ball DO Work Phone: 1419)[address] [place], [place] 3427502-19-2025 10:21-0500 Body foxbslewjlp62.1 [degF]Timbo Ball DO Work Phone: 1(419)[address] [place], [place] 3427502-19-2025 10:210500 Body fcmxeu61.18 kgBenjamin Ball DO Work Phone: 1419)[address] [place], [place] 3427502-19-2025 10:21-0500 Diastolic blood bcetjirc24 mm[Hg]Timbo Ball DO Work Phone: 1(419)[address] [place], [place] 3427502-19-2025 10:21-0500 Heart rate47 /minBenjamin Ball DO Work Phone: 1(419)[address] [place], [place] 3427502-19-2025 10:21-0500 SaO2% (BldA) [Mass fraction]96 %Timbo Ball DO Work Phone: 1419)[address] [place], [place] 3427502-19-2025 10:21-0500 Systolic blood laojencs940 mm[Hg]Timbo Ball DO Work Phone: 1419)[address] [place], [place] 3427501-16-2025 10:32-0500 Body hhujst438.8 cmBenjamin Ball DO Work Phone: 1419)[address] [place], [place] 3427501-16-2025 10:32-0500 Body mass index (BMI) [Ratio]28.1 kg/c1Ewsjnnhk Ball DO Work Phone: 1419)[address] [place], [place] 3427501-16-2025 10:32-0500 Body pfkbyxediar67.8 [degF]Timbo Ball DO Work Phone: 1419)[address] [place], [place] 3427501-16-2025 10:32-0500 Body .9 kgBenjamin Ball DO Work Phone: 1419)[address] [place], [place] 3427501-16-2025 10:32-0500 Diastolic blood ugeexjsn98 mm[Hg]Timbo Ball DO Work Phone: 1419)[address] [place], [place] 3427501-16-2025 10:32-0500 Heart rate74 /minBenjamin Ball DO Work Phone: 1419)[address] [place], [place] 3427501-16-2025 10:32-0500 Systolic blood uyysxtie892 mm[Hg]Timbo Ball DO Work Phone: 1419)[address] [place], [place] 3427512-19-2024 15:02-0500 Body pobuge193.8 cmBenjamin Ball DO Work Phone: 1(022)[address] [place], [place] 3427512-19-2024 15:02-0500 Body mass index (BMI) [Ratio]28.1 kg/s9Mpswbicp Ball DO Work Phone: 1419)[address] [place], [place] 3427512-19-2024 15:02-0500 Body .96 kgBenjamin Ball DO Work Phone: 1419)[address] [place], [place] 3427512-19-2024 15:02-0500 Diastolic blood qvacdjnx40 mm[Hg]Timbo Ball DO Work Phone: 1419)[address] [place], [place] 3427512-19-2024 15:02-0500 Heart rate69 /minBenjamin Ball DO Work Phone: 1419)[address] [place], [place] 3427512-19-2024 15:02-0500 Respiratory rate12 /minBenjamin Ball DO Work Phone: 1(618)[address] [place], [place] 3427512-19-2024 15:02-0500 Systolic blood mm[Hg]Timbo Ball DO Work Phone: 1419)[address] [place], [place] 3427512-17-2024 09:00-0500 Body zxrvbo958.8 cmBenjamin Ball DO Work Phone: 1(419)[address] [place], [place] 3427512-17-2024 09:00-0500 Body mass index (BMI) [Ratio]28.3 kg/p1Asicsczn Ball DO Work Phone: 1(419)[address] [place], [place] 3427512-17-2024 09:00-0500 Body pcwgom26.35 kgBenjamin Ball DO Work Phone: [address] [place], [place] 3427512-17-2024 09:00-0500 Diastolic blood kqeylqoi25 mm[Hg]Timbo Ball DO Work Phone: 1(371)[address] [place], [place] 3427512-17-2024 09:00-0500 Heart rate73 /minBenjamin Ball DO Work Phone: 1(296)[address] [place], [place] 3427512-17-2024 09:00-0500 Respiratory rate18 /minBenjamin Ball DO Work Phone: 1(837)[address] [place], [place] 3427512-17-2024 09:00-0500 SaO2% (BldA) [Mass fraction]96 %Timbo Ball DO Work Phone: 1(667)[address] [place], [place] 3427512-17-2024 09:00-0500 Systolic blood vyyzflhp599 mm[Hg]Timbo Ball DO Work Phone: 1(010)[address] [place], [place] 3427512-09-2024 13:22-0500 Diastolic blood egrlavtb16 mm[Hg]Timbo Ball DO Work Phone: 1(297)[address] [place], [place] 3427512-09-2024 13:22-0500 Heart rate60 /minBenjamin Ball DO Work Phone: [address] [place], [place] 3427512-09-2024 13:22-0500 Respiratory rate16 /minBenjamin Ball DO Work Phone: 1(303)[address] [place], [place] 3427512-09-2024 13:22-0500 SaO2% (BldA) [Mass fraction]97 %Timbo Ball DO Work Phone: 1(217)[address] [place], [place] 3427512-09-2024 13:22-0500 Systolic blood qyrmdlqk893 mm[Hg]Timbo Ball DO Work Phone: 1(116)[address] [place], [place] 3427512-09-2024 11:10-0500 Inhaled oxygen flow rate4 L/minBenjamin Ball DO Work Phone: 1(831)[address] [place], [place] 3427512-09-2024 09:08-0500 Body kpiypb573.8 cmBenjamin Ball DO Work Phone: 1(122)[address] [place], [place] 3427512-09-2024 09:08-0500 Body lbyvrl65 kgBenjamin Ball DO Work Phone: 1(670)[address] [place], [place] 3427511-25-2024 11:45-0500 Diastolic blood ogubiuup02 mm[Hg]Timbo Ball DO Work Phone: 1(988)[address] [place], [place] 3427511-25-2024 11:45-0500 Heart rate60 /minBenjamin Ball DO Work Phone: 1(465)[address] [place], [place] 3427511-25-2024 11:45-0500 Respiratory rate16 /minBenjamin Ball DO Work Phone: 1(843)[address] [place], [place] 3427511-25-2024 11:45-0500 SaO2% (BldA) [Mass fraction]95 %Timbo Ball DO Work Phone: 1(362)[address] [place], [place] 3427511-25-2024 11:45-0500 Systolic blood psqqulou65 mm[Hg]Timbo Ball DO Work Phone: 1(786)[address] [place], [place] 3427511-25-2024 09:30-0500 Inhaled oxygen flow rate4 L/minBenjamin Ball DO Work Phone: 1(167)[address] [place], [place] 3427511-25-2024 07:36-0500 Body .8 cmBenjamin Ball DO Work Phone: 1(381)[address] [place], [place] 3427511-25-2024 07:36-0500 Body dkirxv90.45 kgBenjamin Ball DO Work Phone: [facility]11-11-2024 11:23-0500 Blood Pressure LocationPatricfelicia HILLS [facility]11-11-2024 11:23-0500Diastolic blood wjzmkkyo27 mm[Hg]Salome HILLS [facility]11-11-2024 11:23-0500Heart rate67 /minPatricfelicia HILLS [facility]11-11-2024 11:23-0500Respiratory rate18 /minPatrick REINIER [facility]11-11-2024 11:23-0500Systolic blood zxcoybuk36 mm[Hg]Salome HILLS [facility]10-22-2024 11:00-0400Body ydplzf975.8 cmDO Timbo Ball Work Phone: [facility]10-22-2024 11:00-0400 Body mass index (BMI) [Ratio]28.5 kg/m2DO Timbo Ball Work Phone: [phone]10-22-2024 11:00-0400 Body kupwpz99.43 kgDO Timbo Ball Work Phone: [phone]10-22-2024 11:00-0400 Diastolic blood gctppdep89 mm[Hg]DO Timbo Ball Work Phone: [facility]10-22-2024 11:00-0400 Heart rate69 /minDO Timbo Ball Work Phone: [facility]10-22-2024 11:00-0400 Respiratory rate12 /minDO Timbo Ball Work Phone: [facility]10-22-2024 11:00-0400 Systolic blood ywcmgobj164 mm[Hg]DO Timbo Ball Work Phone: [facility]10-16-2024 09:46-0400 Diastolic blood bgeoijbc64 mm[Hg]DO Timbo Ball Work Phone: [facility]10-16-2024 09:46-0400 Heart rate68 /minDO Timbo Ball Work Phone: [facility]10-16-2024 09:46-0400 Systolic blood zbnromoa368 mm[Hg]DO Timbo Ball Work Phone: [facility]10-07-2024 14:15-0400 Body .8 cmB[facility]ville [facility]10-07-2024 14:15-0400Body mass index (BMI) [Ratio]28.4 kg/i7HedyyirmnBrecksville Va / [facility]10-07-2024 14:15-0400Body ywewjq55.81 kgBrecksville Va / [facility]10-07-2024 14:15-0400Diastolic blood oejnwcbp48 mm[Hg][facility] 08-16-2024 14:15-0400Heart rate71 /[facility] 08-16-2024 14:15-0400Respiratory rate18 /[facility] 08-16-2024 14:15-4333ZiW8% (BldA) [Mass fraction]94 %[facility]10-07-2024 14:15-0400Systolic blood oivxqufl856 mm[Hg][facility]08-21-2024 10:03-0400Body wzvfet059.8 cmDO Timbo Financetesetudes Work Phone: [facility]08-21-2024 10:03-0400 Body mass index (BMI) [Ratio]28.5 kg/m2DO Timbo Ball Work Phone: [facility]08-21-2024 10:03-0400 Body qryohe80.43 kgDO Timbo Ball Work Phone: 1(419)483-[address] [place], [place] 1481808-21-2024 10:03-0400 Diastolic blood vlfnsloo61 mm[Hg]DO Timbo Ball Work Phone: [phone]08-21-2024 10:03-0400 Heart rate80 /minDO Timbo Ball Work Phone: 1(195)889-[address] [place], [place] 1481808-21-2024 10:03-0400 Respiratory rate12 /minDO Timbo Ball Work Phone: 1(522)161-[address] [place], [place] 1481808-21-2024 10:03-0400 Systolic blood cofgdjxb746 mm[Hg]DO Timbo Ball Work Phone: 1(528)[address]06-27-2024 12:38-0400 Body ekhzcb584.8 cmDO Timbo Ball Work Phone: 1(548)[address]06-27-2024 12:38-0400 Body mass index (BMI) [Ratio]29 kg/m2DO Timbo Ball Work Phone: 1(644)[address]06-27-2024 12:38-0400 Body hgemqfoskkb28.3 [degF]DO Timbo Ball Work Phone: 1(889)[address] [place], [place] 3427506-27-2024 12:38-0400 Body bgmujz55.62 kgDO Timbo Ball Work Phone: 1(075)[address]06-27-2024 12:38-0400 Diastolic blood zroeuhrs88 mm[Hg]DO Timbo Ball Work Phone: 1(891)648-[address] [place], [place] 1481806-27-2024 12:38-0400 Heart rate62 /minDO Timbo Ball Work Phone: 1(756)282-[address] [place], [place] 1481806-27-2024 12:38-0400 SaO2% (BldA) [Mass fraction]90 %DO Timbo Ball Work Phone: 1(691)[address]06-27-2024 12:38-0400 Systolic blood agjcmgzj418 mm[Hg]DO Timbo Ball Work Phone: 1(492)[address] [place], [place] 3427505-06-2024 11:40-0400 Body ckpvda794.8 cmBrecksville [facility]05-06-2024 11:40-0400Body mass index (BMI) [Ratio]29 kg/x8FtiaxofoqBrecksville Va / [facility]ille Hospital05-06-2024 11:40-0400Body yqrfzy34.73 kgBrecksville Va / [facility]ille [facility]05-06-2024 11:40-0400Diastolic blood mm[Hg][facility] 03-15-2024 11:40-0400Heart rate66 /[facility] 03-15-2024 11:40-0400Respiratory rate12 /[facility] 03-15-2024 11:40-0400Systolic blood mm[Hg][facility]02-29-2024 14:10-0500Body xzkjek894.8 cmB[facility]ksville [facility] 01-08-2024 14:10-0500Body mass index (BMI) [Ratio]28.8 kg/t9TywpjtkcnBrecksville Va / Crille Hospital02-29-2024 14:10-0500Body zcnybx59.94 kgBrecksville Va / [facility]ille [facility]01-12-2024 10:30-0500Body .8 cmBenjamin Ball Other [employer] Other 01-12-2024 10:30-0500Body mass index (BMI) [Ratio] 29.12 kg/q2Uzufysvx Ball Other [employer] Other 01-12-2024 10:30-0500Body cnpudl70.08 kgBenjamin Ball Other [employer] Other 01-12-2024 10:30-0500Diastolic blood sgsbmlca71 mm[Hg] Timbo Ball Other [employer] Other 01-12-2024 10:30-0500Respiratory rate12 /minBenjamin Ball Other [employer] Other 01-12-2024 10:30-0500Systolic blood latzjelj753 mm[Hg] Timbo Ball Other [employer] Other 11-15-2023 11:00-0500Body zzkebl112.8 cmBenjamin Ball Other [employer] Other 11-15-2023 11:00-0500Body mass index (BMI) [Ratio] 28.69 kg/n2Csuwydeh Ball Other [facility] Other 11-15-2023 11:00-0500Body .72 kgBenjamin Ball Other [employer] Other 11-15-2023 11:00-0500Diastolic blood dyoqvwtk99 mm[Hg] Timbo Ball Other [facility] [employer] Other 11-15-2023 11:00-0500Respiratory rate12 /minBenjamin Ball Other [facility] [employer] Other 11-15-2023 11:00-0500Systolic blood ebrbtnsw741 mm[Hg] Timbo Ball Other [employer] Other 10-16-2023 12:21-0400Blood Pressure LocationPatrick HILLS [facility]10-16-2023 12:21-0400Diastolic blood mm[Hg]Salome HILLS [facility]10-16-2023 12:21-0400Heart rate80 /minPatrick HILLS [facility]10-16-2023 12:21-0400Respiratory rate16 /minPamirna HILLS [facility]10-16-2023 12:21-0400Systolic blood mm[Hg]Salome HILLS [facility]06-03-2023 09:16-0400Body culhsdqxinr81 [degF]PA Aury Shehorn Work Phone: [facility]06-03-2023 09:16-0400Body aeojkt00.45 kgPA Aury Shehorn Work Phone: [facility]06-03-2023 09:16-0400 Diastolic blood mm[Hg]PA Aury Shehorn Work Phone: [facility]06-03-2023 09:16-0400Heart rate80 /minPA Aury Mariellahorn Work Phone: [facility]06-03-2023 09:16-7820BhD0% (BldA) [Mass fraction]96 %PA Aury Shehorn Work Phone: [facility]06-03-2023 09:16-0400 Systolic blood kaylonep932 mm[Hg]PA Aury Mariellahorn Work Phone: [facility]05-15-2023 12:00-0400Body apkgoz533.8 cmBenjamin Ball Other [employer] Other 05-15-2023 12:00-0400Body mass index (BMI) [Ratio] 28.44 kg/a9Qzxyazxx Ball Other [employer] Other 05-15-2023 12:00-0400Body egssnl58.9 kgBenjamin Ball Other [employer] Other 05-15-2023 12:00-0400Diastolic blood cjbgofqq84 mm[Hg] Timbo Abad Other [employer] Other 05-15-2023 12:00-0400Respiratory rate12 /minBenjamin Ball Other [employer] Other 05-15-2023 12:00-0400Systolic blood oaserbek892 mm[Hg] Timbo Abad Other [employer] Other 06-20-2022 14:30-0400Body rrzetx116.8 cmNiya Baker Other [employer] Other 06-20-2022 14:30-0400Body mass index (BMI) [Ratio] 28.69 kg/s6YtbjicNiya Baker Other [employer] Other 06-20-2022 14:30-0400Body dinhwofqujb95.3 [degF]Niya Baker Other [employer] Other 06-20-2022 14:30-0400Body stvixs19.72 kgNiya Baker Other [employer] Other 06-20-2022 14:30-0400Diastolic blood ycsrjfes25 mm[Hg] Niya Baker Other [employer] Other 06-20-2022 14:30-4752PjU5% (BldA) [Mass fraction]98 % Niya Baker Other [employer] Other 06-20-2022 14:30-0400Systolic blood xzcfqety749 mm[Hg] Niya Baker Other [employer] Other 06-10-2022 10:04-0400Blood Pressure LocationPatrick [place]anes [facility] 06-10-2022 10:04-0400Diastolic blood mm[Hg] Salome HILLS [facility] 06-10-2022 10:04-0400Heart rate67 /minPatrick [place] [facility] 06-10-2022 10:04-0400Respiratory rate16 /minPatricVivaSmart [facility] 06-10-2022 10:04-0400Systolic blood iuyahcgf376 mm[Hg] Salome HILLS [facility] Encounters Encounter DateEncounter TypeCare ProviderFacilityStart: 08-34-1784oscrpekfvq Salome HILLSFacility:[facility]: 09-15-2025 End: 23-07-0802hqrxfvzqrnNjnuunaf Ball DO Work Phone: -[facility]: 09-15[facility]2025 End: 75-86-1781Iyrjoys encounter Elif Pittman MD-CT Scan [facility] [place] Work Phone: Start: 08-29-2025 End: 08-66-1971ptndlmbwtwWkkfjso Vytautas Giedraitis MDFacility:PM [place] Start: 08-18-2025 End: 23-34-9752Xvyhokk encounter procedureDandre Pittman MD-[facility] Work Phone: Start: 08-18-2025 End: 59-69-1839sjuftpgtvsRvdsahni Ball DO Work Phone: [facility] Work Phone: Start: 70-78-9439gfdlqqegxkAdctsfd WATERSFacility:EU [place]Start: 43-17-2628Epd-patient / Non-visitBenjamin Ball DO-[facility] Work Phone: Start: 07-29-2025 End: 89-64-9283wlxkmfeqsoXvqlbwfn Ball DO Work Phone: [facility] Work Phone: Start: 07-29-2025 End: 87-94-6254Ldqlnfu encounter procedureBenjamin Ball DO-[facility] Work Phone: Start: 05-12-2025 End: 52-83-7771dnjojbfhwoSdwfhymb Ball DO Work Phone: [facility] Work Phone: Start: 05-12-2025 End: 86-91-1288Agsdfty encounter procedureJaylon Finnegan MD-[facility] Work Phone: Start: 87-02-2941Fxx-patient / Non-visitBenjamin Ball DO-[facility] Work Phone: Start: 79-42-4366Wzycxgj encounter procedureBenjamin Ball DO Work Phone: [facility]: 03-18-2025 End: 46-03-5009Yurtkja encounter procedureBenjamin Ball DO-[facility] Work Phone: Start: 12-29-2024 End: 77-66-7557lqnwmxwvjxPcboyiyp Ball DO Work Phone: [facility] Work Phone: Start: 12-29-2024 End: 77-03-0361Eldasxr encounter procedureBenjamin Ball DO Work Phone: [facility] Physician [facility] Vascular Surg Work Phone: Start: 12-07-2024 End: 13-09-7608Hwltqpc encounter procedureBenjamin Ball DO Work Phone: [facility]-Ultrasound [place] Work Phone: Start: 12-07-2024 End: 80-04-4211lnputdwadpEykbjzxj Ball DO Work Phone: [facility] Work Phone: Start: 11-25-2024 End: 61-50-5537jsrtifxxvrJkmvahuw Ball DO Work Phone: [facility] Work Phone: Start: 11-25-2024 End: 68-22-8786Fgdhmqk encounter procedureBenjamin Ball DO Work Phone: [facility] Physician [facility] Vascular Surg Work Phone: Start: 14-66-5006Xug-patient / Non-visitBenjamin Ball DO Work Phone: [facility] Group-[facility] Work Phone: Start: 10-28-2024 End: 60-20-8501Vlteduc encounter procedureBenjamin Ball DO Work Phone: [facility] Work Phone: Start: 10-26-2024 End: 55-02-0832Tjoxriw encounter procedureBenjamin Ball DO Work Phone: [facility] Physician [facility] Cardiology Work Phone: Start: 06-14-7233Kqf-patient / Non-visitBenjamin Ball DO Work Phone: [facility] GroupFormerly [facility] V[facility] Work Phone: Start: 10-18-2024 End: 80-74-5402Uwdopnkyj to same day surgery centerBenjamin Ball DO Work Phone: [facility]-Interventional Radiology Work Phone: Start: 10-18-2024 End: 49-30-7016gjgrmkohvyYrymocj T LangenbergFacility:[facility] [place]tart: 20-05-0002Xrl-patient / Non-visitBenjamin Ball DO Work Phone: [facility] Physician [facility] Vascular Surg Work Phone: Start: 10-04-2024 End: 70-28-9323Mooubgrup to same day surgery centerBenjamin Ball DO Work Phone: [facility]-Interventional Radiology Work Phone: Start: 10-04-2024 End: 33-69-4643pflefjrebrVofrwil T LangenbergFacility:[facility] [place]tart: 09-20-2024 End: 63-27-3563hcudenaaevFkydmhp R WATERSFacility:EU [place]Start: 09-20-2024 End: 02-22-6814Dnkvrkr encounter procedureSalome HILLS [facility] Jose David start: 09-15-2024 End: 48-08-8677knczkhcdawDJ Timbo Ball Work Phone: [facility] Work Phone: Start: 09-15-2024 End: 52-12-9165Zagurln encounter procedureDO Timbo Ball Work Phone: [facility] Work Phone: Start: 08-31-2024 End: 66-46-5711tpzvjyoycgPG Timbo Abad Work Phone: [facility] Work Phone: Start: 08-31-2024 End: 16-62-9982Soisomq encounter procedureDO iTmbo Abad Work Phone: [facility] Work Phone: Start: 08-26-2024 End: 79-74-5837Wwqdzuz encounter procedureDO Timbo Abad Work Phone: [facility]-Ultrasound [place] Work Phone: Start: 08-26-2024 End: 02-21-1258txjhfobmbqXC Timbo Abad Work Phone: [facility] Work Phone: Start: 08-25-2024 End: 50-73-6485bhkuezuignSR Timbo Abad Work Phone: [facility] Work Phone: Start: 08-25-2024 End: 36-39-6591Lkwelmt encounter procedureDO Timbo Abad Work Phone: [facility]-Nuc Med [place] Work Phone: Start: 08-16-2024 End: 20-76-8668yoqqjspbmnEjlabupmz [facility] Work Phone: Start: 08-16-2024 End: 97-10-9365Kfnsxcg encounter procedureFircumberland hospital [facility] Work Phone: Start: 06-30-2024 End: 78-80-0451vwaqbjgdfnSS Timbo Abad Work Phone: [facility] Work Phone: Start: 06-30-2024 End: 04-32-5416Bmfkcei encounter procedureDO Timbo Abad Work Phone: [facility] Work Phone: Start: 05-06-2024 End: 43-50-0227bxnooldstwOQ Timbo Abad Work Phone: [facility] Work Phone: Start: 05-06-2024 End: 68-25-7484Rwdmgok encounter procedureDO Timbo Abad Work Phone: [facility]ician Group-[facility] Vascular Surgery Work Phone: Start: 08-97-9260Rjo-patient / Non-visitDO Timbo Abad Work Phone: [facility] Work Phone: Start: 82-40-4436Qpp-patient / Non-visitDO Timbo Abad Work Phone: [facility]ician Group-[facility] Work Phone: Start: 49-13-1182Zoz-patient / Non-visitDO Timbo Abad Work Phone: [facility]ician Group-[facility] Work Phone: Start: 03-15-2024 End: 65-86-5433hwkxofuqprMgcgmcxoeWVUMedicine [facility] Work Phone: Start: 03-15-2024 End: 15-49-1981Enuocyy encounter procedureJessica Physician Group-[facility] Work Phone: Start: 02-11-2024 End: 46-27-3104evzaisgsnnSJBRBWDK D ZAHLERNot AvailableStart: 01-15-2024 End: 84-65-8692tveaveurqnOGOIPFF [facility]: 01-08-2024 End: 42-37-9751Udoildv encounter procedureJessica Physician Group-[facility] Neurosurgery Work Phone: start: 71-26-8722Pfp-patient / Non-visitCritical Access Hospitals Phys[facility] Work Phone: Start: 12-17-2023 End: 17-01-4979hfaxttmkqqKHFGBJH [facility]art: 11-21-2023 End: 30-04-7043ijjqozkblwPlwshtgq Ball Other [facility] [employer] Other Start: 95-36-8744Mdilxb outpatient visit 15 minutes Timbo StarrG [facility] ClinicStart: 10-08-2023 End: 81-74-0651nfesnmfbtaLondaqhb Ball Other [facility] [employer] Other Start: 07-67-7604Hsrkkjfgd encounterBenkatina StarrG [facility] ClinicStart: 09-24-2023 End: 76-55-1932mefxzarjnjGzvcwdbh Ball Other [facility] [employer] Other Start: 41-93-0203Ipesao outpatient visit 25 minutes Timbo StarrG [facility] ClinicStart: 80-39-7309Ezbrxx outpatient visit 15 minutesMattlyssa LangenbergFPG Vascular SurgeryStart: 09-04-2023 End: 91-35-5213gvxwcvldkuPT Timbo Abad Work Phone: [facility] [employer] Other Start: 09-04-2023 End: 83-26-1850Rncqlhh encounter procedureDO Timbo Abad Work Phone: [facility] VascularStart: 08-25-2023 End: 49-98-3031Qunnewe encounter procedurePatrick Clint HILLS [facility] [place] start: 2023 End: 46-57-2028nkqxisogsbSihbqq Ruttino Other [facility] [employer] Other Start: 78-82-2623Inwwdxnst encounterNiya Lewis [facility] ClinicStart: 05-22-2023 End: 12-20-7160dbclirrysaBakrmm Ruttino Other [facility] [employer] Other Start: 50-23-9825Gszjuhbxk encounterNiya Abad Medical ClinicStart: 05-01-2023 End: 40-50-2823rwtniqouzyYZ Timbo Abad Work Phone: [facility] Work Phone: Start: 05-01-2023 End: 88-41-8255N[place] encounter procedureDO Timbo Abad Work Phone: [facility]-Ultrasound [facility] VascularStart: 04-12-2023 End: 69-22-7081ejiqyfaebcLO Aury Carvalhorabi Work Phone: [facility] Work Phone: Start: 04-12-2023 End: 96-27-3626Olkecgx encounter procedurePA Aury Carvalhorn Work Phone: [facility] Work Phone: Start: 07-43-3963oifsmxfmqqXS TIMBO ABADFacility:H1 Start: 03-24-2023 End: 61-43-8028zfwerjyeyxJgxzihcl [facility] Other [facility] [employer] Other Start: 56-69-7212Mnksveb encounter procedureBenkatina Abad Medical ClinicStart: 09-25-2022 End: 39-13-6806miimjxwlphLH TIMBO ABADFacility:Q5Mcdax: 07-09-2022 End: 42-27-8069ocopludfxeEIGFUKO TUCKERFacility:M5Jfmiv: 04-29-2022 End: 99-79-3696ytcygoxtzvLvownd Ruttino Other [facility] [employer] Other Start: 53-97-8209Guxvzr-up encounterNiya Lewis Vascular SurgeryStart: 04-29-2022 End: 10-38-3750Tvuimyt encounter procedureDO Timbo Abad Work Phone: [facility]-Ultrasound [facility] VascularStart: 04-27-2022 End: 60-98-8508wkhpgydyltNG TIMBO ABADFacility:P5Uewev: 04-19-2022 End: 95-54-0975Bffctbl encounter procedurePatricfelicia HILLS [facility] start: 04-18-2022 End: 42-36-8714afbjccjefnNA SAOLME REINIER .Facility:V7Bstvd: 44-19-3113Fdzem health examinationCoastal Carolina Hospital Other [place] [employer] Other Procedures DateProcedureProcedure DetailPerforming ClinicianStart: 20-24-4596TU angiography of headBenjamin Ball DO Work Phone: Start: 53-11-3125WZ angiography of neck vessels Timbo Ball DO Work Phone: Start: 49-22-5835Wdniw brachial pressure indexBenjamin Ball DO Work Phone: Start: 75-25-8546Sbazanb ultrasonography of bilateral carotid arteriesBenjamin Ball DO Work Phone: Start: 15-83-3853Krsjc volume recorder plethysmography Timbo Ball DO Work Phone: Start: 57-95-5240XjobsxtfgrvRfduyuay Ball DO Work Phone: Start: 17-62-9825Jauoc limb angiographyBenjamin Ball DO Work Phone: Start: 91-97-1261Iaqaw volume recorder plethysmography DO Timbo [employer]anc[employer] Work Phone: Start: 14-51-6355Dfjycdeekkqi myocardial perfusion stress studyDO Timbo Abad Work Phone: Start: 45-25-3007Fbkkkcx ultrasonography of bilateral carotid arteriesDO Timbo Abad Work Phone: Start: 02-20-7139Mlaoh brachial pressure indexDO Timbo Abad Work Phone: Start: 27-73-8774Qpzlmmqkxpctth shockwave lithotripsy of calculus of kidneyPatrick REINIER Start: 44-58-2002Sjz BPA Aury Carvalhorabi Work Phone: Start: 00-01-9872Krfmd StrepPA Aury Carvalhorabi Work Phone: Start: 99-75-1167Zybghngectazjh shockwave lithotripsy of calculus of kidneyPatrick REINIER Start: 56-97-5312EhqbllusutDbpcdyv WATERS Start: 28-13-0423Pjnmciwifky removal of ureteric stent Salome HILLS Start: 12-23-4817Mnjedtazkst insertion of ureteric stentSalome HILLS Start: 55-51-0805Wiehxjbgv for malignant neoplasm of colonCoastal Carolina Hospital Other Start: 44-03-5499Kkvzlgwkpjawoi shockwave lithotripsy of calculus of kidneyPatrick REINIER Comment on above:w/ left stent removalStart: 03-25-2016 Lithotripsy using laserSalome HILLS Comment on above:Cystoscopy/Urethreal dilateion/Left stent placement/ Holmium laser of left prostatic calculus/StoneextractionStart: 68-88-2150Yvbaiben artery bypass graftSalome HILLS Start: 29-17-1689Pwyrhvxs artery stent (physical object)Salome HILLS Start: 37-48-8125GavqhxxdjoUfsheuo HILLS Start: 86-81-7475PuwsiaeajbSrcebnf WATERS Start: 76-65-5028Otobalgzkzffm prostatectomynetFactor Comment on above:w/ CystoscopyStart: 11-10-2001 Transrectal biopsy of prostate using ultrasound guidancenetFactor CystoscopynetFactor Depression screeningMatthew Kain Other HemorrhoidectomynetFactor Herniated structure (morphologic abnormality)Salome HILLS History of coronary artery bypass graftingS/P CABG (coronary artery bypass graft)Timbo Abad DO Work Phone: Urodynamic studiesnetFactor Plan of Treatment DateCare ActivityDetailAuthorStart: 71-14-5121Orgtc brachial pressure indexUS ankle/arm indicesSelect Medical [facility], Beachwoodtart: 84-93-9728Yhbwiuy ultrasonography of bilateral carotid arteriesUS carotid doppler [facility] Centertart: 66-97-5533Lkkzy volume recorder plethysmography [facility] Beachwoodtart: 08-40-4492HyrshmohbSelect Medical [facility] Clinic [facility] Hospital, Beachwoodtart: 69-36-6189QkhhfgzopSelect Medical [facility] Clinic [facility] Hospital, Beachwoodtart: 05-23-2049Arxtz volume recorder plethysmographySelect Medical [facility] Clinic [facility], Beachwoodtart: 35-09-6264Whvapgckialt myocardial perfusion stress studyNM charito perf SPECT rest & strKettering Health Miamisburg CenterStart: 99-07-0378LkxmmxitcKettering Health Miamisburg CenterStart: 59-22-4012Zmiyllu referralUniversity [facility]als [facility] Work Phone: Start: 91-31-1280Vdecknh ultrasonography of bilateral carotid arteriesUS carotid doppler [facility]art: 91-47-6641SD.doppler Carotid arteries - [facility] Hospitaltart: 60-56-9594Cielrah [facility] Work Phone: Start: 77-19-8704Dzdbnfu ultrasonography of bilateral carotid arteriesUS carotid doppler [facility]art: 48-14-7869VJ.doppler Carotid arteries - [facility] Hospitaltart: 45-69-4014Rplohvv ultrasonography of bilateral carotid arteriesUS carotid doppler [facility] HospitalAnkle brachial pressure index [facility] HospitalComprehensive metabolic 1999 panel - Serum or PlasmaBrecksville Va / Crille HospitalComprehensive metabolic 1999 panel - Serum or [facility] CenterComprehenve metabolic 1999 panel - Serum or [facility] CenterPatient EducationIndiana University [facility] Work Phone: Patient [facility] Work Phone: US.doppler Carotid arteries - [facility] CenterUS.doppler Carotid arteries -[facility] HospitalXR Lumbar spine 4 [facility] Immunizations Immunization DateImmunizationNotesCare UrbetlycSxqmzpbu59-08-5457uporiwbig, high dose seasonal, preservative-freeBenkatina Abad DO Work Phone: [facility]09-06-2024influenza virus vaccine, unspecified formulationnetFactor [facility]09-20-2023influenza virus vaccine, unspecified formulationPa8digits [facility]09-25-2022COVID-19 Pfizer (bivalent)Timbo Abad Other [facility] Centerue09-25-2022influenza virus vaccine, unspecified formulationnetFactor [facility]09-25-2022influenza, high dose seasonal, preservative-freeBenjamin Ball Other [employer] Other [id number]-80 PfizerBenjamin Ball Other [facility]04-14-2022SARS-CoV-2 mRNA (jmgxvcesrkv-iqbe-wsacpqt) vaccinePa8digits [facility]10-28-2021zoster vaccine recombinantBenjamin Ball Other [facility]10-01-2021influenza virus vaccine, unspecified formulationPa8digits [facility] [id number]-08 Vaccine Pfizer - Documentation Purposes OnlyBenjamin Ball Other [facility] on above:Result Comment: 2023-04-21: [id number] virus vaccine, unspecified formulationPa8digits [facility]07-07-2021zoster vaccine recombinantBenjamin Ball Other [facility]03-02-2021COVID-19 Vaccine Pfizer - Documentation Purposes OnlyBenjamin Ball Other [facility] on above:Result Comment: 2023-04-21: [id number] Vaccine Pfizer - Documentation Purposes OnlyBenjamin Ball Other [facility] on above:Result Comment: 2023-04-21: [id number] virus vaccine, unspecified formulationPaHowDok [place] [facility]10-11-2019influenza virus vaccine, split virus (incl. purified surface antigen)Jaylon Finnegan Other [employer] Other [id number] virus vaccine, unspecified formulationB[facility]ville [facility]10-01-2019influenza virus vaccine, unspecified formulationPaHowDok [place] [facility]04-12-2019pneumococcal polysaccharide vaccine, 23 valentBenjamin Ball Other [facility]11-12-2018influenza virus vaccine, unspecified formulationPa8digits [facility]10-10-2018influenza virus vaccine, split virus (incl. purified surface antigen)Jaylon Finnegan Other [employer] Other [id number] virus vaccine, unspecified formulationB[facility]ville [facility] Hospital04-09-2018pneumococcal conjugate vaccine, 13 valentBenjamin Ball Other [facility]10-24-2017influenza virus vaccine, unspecified formulationPaHowDok [place] [facility]10-19-2016influenza virus vaccine, unspecified formulationPaHowDok [place] [facility]10-13-2015influenza virus vaccine, unspecified formulationPaHowDok [place] [facility]10-10-2013influenza virus vaccine, unspecified formulationSalome HILLS [facility] Payers DatePayer CategoryPayerPolicy [id number] Health [id number] [id number] 1960Medicare [id number] Health [id number] 2..1.048707.3.57[id number] 2.0.1.385340.3.57[id number] 2..1.852868.3.57[id number] 2.0.1.487190.3.57[id number] 2.0.1.134022.3.57[id number] 2.0.1.664097.3.57[id number] 2.840.1.396958.3.57[id number] 2.840.1.558723.3.57[id number] 2.16.840.1.8[id number] 2.16.840.1.903582.3.579.2.531 [id number] 2.16.840.1.2[id number] 2.16.840.1.2[id number] 2.16.840.1.222486.3.579.2.531 [id number] 2.16.840.1.1[id number] 2.16.840.1.3[id number] 2.16.840.1.681867.3.579.2.531 Social History DateTypeDetailFacilityStart: 08-27-2021 End: 45-40-6852Tjbpngl smoking statusEx-smoker (finding)[facility] sex Assigned At [facility] start: 40-20-0114Kon Assigned At [facility]ertart: 08-24-8002TjjfrEzpjkeHolmes County Joel Pomerene Memorial Hospitaltart: 61-16-28870CwhrvcBrown Memorial Hospitaltart: 81-38-3906Bxorzxd smoking status NHISNever smoked tobacco (finding)[facility] Beachwoodtart: 11-25-2024 End: 89-85-6127BrmQzte (finding)[facility] Medical Equipment Procedure CodeEquipment CodeEquipment Original TextEquipment IdentifierDates Angiogram, lower extremity, leftMultiple peripheral artery stent, bare-metal [id number] FDAStart: 10-04-2024 Functional Status LmclRebwookzreBvppygVkciposj51-80-7378Dumyocrqzk StatusN/AExec[facility] of [facility]10-16-2023Functional StatusN/A[facility] Clinical Notes 04-19-2022 to 09-15-2025 Note Date & OrwpXfzzBszouuaf74-57-7422 [facility]iology [facility] [place] [address] [place] [address] CT Scan Report Signed Patient: Max Friedman MR#: [id number] : 1940 Acct:[id number] Age/Sex: 85 / M ADM Date: 5 Loc: CT Room: Type: [facility] Attending Dr: Dandre Degroot MD Copies to: Dandre Degroot MD~ Ordering Provider: Dandre Degroot MD Date of Service: 09/15/25 CT/CT angio neck: I65.23 - Occlusion and stenosis of bilateral carotid avila... ([id number]) CT/CT angio head: I65.23 - Occlusion and [...] within the region of the V1 and B6vfghsdau and and normal contrast opacification V4 and [...] Santoyo M.D. 09/15/2025 4:26 PM Dictation Location: [place] [address] Transcribed By: DANIEL 09/15/25 162 Dictated By: Garret Santoyo MD 09/15/25 1612 Signed By: 09/15/25 1626 [facility] Work Phone: 1(242) 874-643009-19-2025 Evaluation note* Diagnosis Onset Date Resolution Status Admit Date Anemia acuteJuly 29, 2025 9:59amASHD (arteriosclerotic heart disease)acute July 29, 2025 9:59am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acutept2024 9:59amCarotid stenosis, bilateralacuteJuly 29, 2025 9:59amChronic heart failure with preserved ejection fraction (HFpEF)acutept2024 9:59amChronic kidney disease acuteSeptember 2024 9:59amHypercholesterolemiaacuteSeptember 2024 9:59amHypertensionacuteSept2024 9:59amNeurogenic claudication due to lumbar spinal stenosisacuteSept2024 9:59amPrimary insomniaacute July 29, 2025 9:59amSubclinical hypothyroidismacuteSept2024 9:59amCarotid artery stenosis, asymptomaticacuteOctober 2024 10:25amFormer smokeracuteOctober 2024 10:25amHistory of left common carotid artery stent placementacuteOctober 2024 10:25amPAD (peripheral artery disease)acute August 18, 2025 10:25am [facility] Work Phone: 1(605) 408-892707-03-2025 Evaluation note* Diagnosis Onset Date Resolution Status Admit Date Right-sided extracranial carotid artery stenosis acuteJuly 2024 10:37amAnemiaacuteSept2024 9:59amASHD (arteriosclerotic heart disease)acuteSept2024 9:59am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acuteSept2024 9:59amCarotid stenosis, bilateralacuteSept2024 9:59amChronic heart failure with preserved ejection fraction (HFpEF)acuteSept2024 9:59amChronic kidney diseaseacuteSept2024 9:59amHypercholesterolemia acuteSept2024 9:59amHypertensionacuteSept2024 9:59am Primary insomniaacuteSept2024 9:59amSubclinical hypothyroidismacute July 29, 2025 9:59am [facility] Work Phone: 1(612) 148-670107-03-2025 Radiology [facility] [address] [place] [address] Ultrasound Report Signed Patient: Max Friedman MR#: [id number] : 1940 Acct:[id number] Age/Sex: 84 / M ADM Date: 5 Loc: [facility] Room: Type: [facility] Attending Dr: Jaylon Finnegan MD Ordering Provider: [...] Finnegan MD,FACS,FSVS 05/12/2025 11:52 AM Dictation Location: [place] [address] Tech: Merle Donaldson Transcribed By: DANIEL 05/12/25 1152 Dictated By: Jaylon Finnegan MD 05/12/25 1151 Signed By: 05/12/25 1152 [facility] Work Phone: 1(393) 359-614707-03-2025 Radiology Diagnostic study noteOhio [facility] Hospital [facility] [address] [place] [address] Ultrasound Report Signed Patient: Max Friedman MR#: [id number] : 1940 Acct:[id number] Age/Sex: 84 / M ADM Date: 5 Loc: [facility] Room: Type: [facility] Attending Dr: Jaylon Finnegan MD Ordering Provider: [...] Finnegan MD,FACS,FSVS 05/12/2025 11:51 AM Dictation Location: [place] [address] Tech: Pam Sheehan Transcribed By: DANIEL 05/12/25 1151 Dictated By: Jaylon Finnegan MD 05/12/25 1151 Signed By: 05/12/25 1151 [facility] Work Phone: 1(684) 277-160805-09-2025 Evaluation note* Diagnosis Onset Date Resolution Status Admit Date ASHD (arteriosclerotic heart disease) acuteMa2024 9:57am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acuteMarch 18, 2025 9:57amCarotid stenosis, bilateral acuteMay 2024 9:57amChronic heart failure with preserved ejection fraction (HFpEF)acuteMa2024 9:57amChronic kidney diseaseacuteMay 2024 9:57am Elevated TSHacuteMay 2024 9:57amHypercholesterolemiaacuteMay 2024 9:57amHypertensionacuteMay 2024 9:57amMedicare annual wellness visit, subsequentacuteMarch 18, 2025 9:57amPrimary insomniaacutey 2024 9:57am [facility] Work Phone: 1(168) 203-756605-09-2025 Evaluation note* Diagnosis Onset Date Resolution Status Admit Date ASHD (arteriosclerotic heart disease) acuteMa2024 9:57am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acutey 2024 9:57amCarotid stenosis, bilateral acuteMay 2024 9:57amChronic heart failure with preserved ejection fraction (HFpEF)acuteMa2024 9:57amChronic kidney diseaseacuteMay 2024 9:57am Elevated TSHacuteMay 2024 9:57amHypercholesterolemiaacuteMay 2024 9:57amHypertensionacuteMay 2024 9:57amMedicare annual wellness visit, subsequentacuteMarch 18, 2025 9:57amPrimary insomniaacuteMay 2024 9:57am Right-sided extracranial carotid artery stenosisacuteJuly 2024 10:37am [facility] Work Phone: 1(266) 171-912012-09-2024 Evaluation note* Diagnosis Onset Date Resolution Status Admit Date PAD (peripheral artery disease) acuteDecember 2023 8:56amCarotid stenosis, bilateralacuteceer 2023 8:58amChronic heart failure with preserved ejection fraction (HFpEF)acute October 26, 2024 8:58amCoronary artery disease involving [place] ir[place] coronary artery of [place] heart wiacuteOctober 26, 2024 8:58amNonrheumatic mitral (valve) stenosisacuteDe2023 8:58amPAD (peripheral artery disease) acuteDece2023 8:58amS/P aortic valve replacement with bioprosthetic valveacuteOctober 26, 2024 8:58amS/P CABG (coronary artery bypass graft)acute October 26, 2024 8:58amASHD (arteriosclerotic heart disease)acuteDecember 2023 2:47pm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acuteDecember 2023 2:47pmCarotid stenosis, bilateralacute October 28, 2024 2:47pmChronic heart failure with preserved ejection fraction (HFpEF)acuteDecember 2023 2:47pmHypercholesterolemiaacuteDecember 2023 2:47pmHypertensionacuteDecember 2023 2:47pmPrimary insomniaacute October 28, 2024 2:47pmFormer smokeracuteJanuary 2024 9:58amPAD (peripheral artery disease)acuteJanuary 2024 9:58amRight leg claudication acuteJanuary 2024 9:58am [facility] Work Phone: 1(732) 221-343411-11-2024 Hospital Discharge instructions Patient Education 09/20/2024 12:11:28 Kidney Stones, Lzlp-nh-Lvuo Kidney Stones Kidney stones are rock-like masses [...] Follow these instructions at home: Medicines Take pcqw-bjl-nviersw and prescription medicines only as told by [...] provider. Document Revised: 06/20/2023 Document Reviewed: 06/20/2023 Fit Steps Patient Education 2023 Gaudena. Follow Up Care 04/21/2023 10:27:24 With:REINIER HUSAIN, Salome Jaramillo, URL Address: [facility] [address] , [place] [address]- [phone] When: Unknown Comments:1 yr w/ MELQUIADES [facility] 11-11-2024 NotePatient Education Urology Kidney [...] these instructions at home: Medicines ??? Take moco-jnf-rjibyzd and prescription medicines only as told by [...] provider. Document Revised: 06/20/2023 Document Reviewed: 06/20/2023 Elsevier Patient Education ? 2023 Fit Steps [facility] 09-15-2024 Evaluation note* Diagnosis Onset Date Resolution Status Admit Date PAD (peripheral artery disease) acuteSeptember 15, 2024 11:48amPAD (peripheral artery disease)acuteDece2023 8:56amCarotid stenosis, bilateralacuteceer 2023 8:58amChronic heart failure with preserved ejection fraction (HFpEF)acuteDece2023 8:58amCoronary artery disease involving [place] ira coronary artery of [place] ira heart wiacuteOctober 26, 2024 8:58amNonrheumatic mitral (valve) stenosisacute October 26, 2024 8:58amPAD (peripheral artery disease)acuteOctober 26, 2024 8:58amS/P aortic valve replacement with bioprosthetic valveacuteOctober 26, 2024 8:58amS/P CABG (coronary artery bypass graft)acuteOctober 26, 2024 8:58amASHD (arteriosclerotic heart disease)acuteDeceer 2023 2:47pm 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acute October 28, 2024 2:47pmCarotid stenosis, bilateralacuteDecember 2023 2:47pmChronic heart failure with preserved ejection fraction (HFpEF)acute October 28, 2024 2:47pmHypercholesterolemiaacuteDecember 2023 2:47pm HypertensionacuteDecember 2023 2:47pmPrimary insomniaacuteDecember 2023 2:47pmFormer smokeracuteJanuary 2024 9:58amPAD (peripheral artery disease)acuteJanuary 2024 9:58amRight leg claudicationacuteJanuary 2024 9:58am [facility] Work Phone: 1(863) 318-863810-22-2024 Evaluation note* Diagnosis Onset Date Resolution Status Admit Date ASHD (arteriosclerotic heart disease) acuteOctober 2023 10:58am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acuteOctober 2023 10:58amCarotid stenosis, bilateralacuteOctober 2023 10:58amChronic heart failure with preserved ejection fraction (HFpEF)acuteOctober 2023 10:58amHypercholesterolemia acuteOctober 2023 10:58amHypertensionacuteOctober 2023 10:58amPAD (peripheral artery disease)acuteNovember 2023 11:48amPAD (peripheral artery disease)acuteDecember 2023 8:56amCarotid stenosis, bilateralacuteDecember 2023 8:58amChronic heart failure with preserved ejection fraction (HFpEF) acuteDece2023 8:58amCoronary artery disease involving [place] ira coronary artery of [place] ira heart wiacuteDeceer 2023 8:58amNonrheumatic mitral (valve) stenosisacuteDeceer 2023 8:58amPAD (peripheral artery disease) acuteDeceer 2023 8:58amS/P aortic valve replacement with bioprosthetic valveacuteDece2023 8:58amS/P CABG (coronary artery bypass graft)acute October 26, 2024 8:58amASHD (arteriosclerotic heart disease)acuteDece2023 2:47pm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acuteDeceer 2023 2:47pmCarotid stenosis, bilateralacute October 28, 2024 2:47pmChronic heart failure with preserved ejection fraction (HFpEF)acuteDecemb2023 2:47pmHypercholesterolemiaacuteDecember 2023 2:47pmHypertensionacuteDece2023 2:47pmPrimary insomniaacute October 28, 2024 2:47pm [facility] Work Phone: 1(827) 554-445703-07-2024 NotePatient here for 1 mo follow up [...] pain. All other systems reviewed and are negative.[facility] 01-15-2024 NoteCardiovascular Medicine [facility] SUBJECTIVE Chief Complaint Patient presents with Coronary Artery Disease Congestive Heart Failure Hypertension Hyperlipidemia Max Friedman is a 83 y.o. male here for follow-up. HPI PMHx: AVR 2014, CAD s/p CABG x1 2014, HTN, carotid stent by vascular surgeon in [place] (Dr. Cedillo) 01/15/2024 He notes that his [...] 7. Mild mitral va (more content not included)...[facility]02-07-2024 NotePatient here for 1 year follow up [...] pain. All other systems reviewed and are negative.[facility] 12-17-2023 NoteCardiovascular Medicine [facility] SUBJECTIVE No chief complaint on file. Max Friedman is a 83 y.o. male here for follow-up. HPI PMHx: AVR 2014, CAD s/p CABG x1 2014, HTN, carotid stent by vascular surgeon in [place] (Dr. Cedillo) He works out a few [...] aortic stenosis by invasive hemodynamic study. 2. Mcgjhrlc-ue-ppwcat two-vessel coronary artery disease involving the left anterior descending and left circumflex coronary arteries. 3. Normal right-sided heart pressures and wedge pressure. 4. Normal cardiac output/cardiac index. 5. 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 (more content not included)...[facility]01-12-2024 Evaluation note* Encounter Date Diagnosis Assessment Notes Treatment Notes Treatment Clinical Notes Nov, Lumbar spondylosis with myelopat hy (ICD-10 - M47.16) He has lumbar spondylosis w/ left sided foot drop. He c/o low back pain w/ ambulating and standing along with the weakness. I don't believe this is a Peroneal injury due to his associated back pain. His symptoms have been present for a couple years. - previously referred to [facility] Neurosurgery but declined treatment He feels the weakness has worsened over the past year. Refer to Neurosurgery - EMG/NCS? - PT? - pain management for back pain - instructed on use of AFO brace Nov,Left foot drop (ICD-10 - M21.372)Sent for AFO bracing. Rx given to patient Nov,therosclerosis of both lower extremities with intermittent claudication (ICD-10 - I70.213)Walk daily until pain results. Inspect feet daily for cuts. Fall precautions. Nov,hronic venous insufficiency (ICD-10 - I87.2)Avoid salt and elevate lower extremities, support stockings, inspect legs and feet daily for blisters and ulcerations. [employer] Other 11-15-2023 Evaluation note* Encounter Date Diagnosis [...] related CP, dyspnea or lightheadedness. They are instructedto continue exercise and AHA diet plan. Continue secondary prevention measures. Sep,Lumbar spondylosis with myelopathy (ICD-10 - M47.16)The patient is instructed to avoid bending, twisting or lifting. They are to use intermittent heat and ice as needed. They may schedule a massage or gentle manipulation. They may safely use Tylenol as needed. Refer for EMG/NCS May require splinting - discussed AFO bracing to prevent falling MRI lumbar spine Sep,Left foot drop (ICD-10 - M21.372)Fall precautions Discussed use of AFO bracing. Refer to [facility] for EMG/NCS Repeat MRI Likely correlates w/ lumbar spondylosis Sep,therosclerosis of both lower extremities with intermittent claudication (ICD-10 - I70.213)Walk daily until pain then rest and restart. COntinue secondary prevention measures. Inspect feet daily for cuts. Sep,ure hypercholesterolemia (ICD-10 - E78.00)Instructed on diet and exercise with continued statin therapy.Discussed the beneficial effects of lo wering cholesterol in reducing the risk for cerebrovascular and cardiovascular disease. Sep,hronic venous insufficiency (ICD-10 - I87.2)Avoid salt and elevate lower extremities, support stockings, inspect legs and feet daily for blisters and ulcerations. Sep,Overweight (ICD-10 - E66.3)This patient has been instructed on a low-fat, high-fiber diet. They are instructed to reduce calories, portion sizes and snacks. It is recommended that they exercise for 30 minutes, 3-5 times weekly. Sep,S/P aortic valve replacement (ICD-10 - Z95.2)Denies CP, tachycardia or lightheadedness. f/u Cardiology w/ serial Echocardiogram Control BP and HR [facility] Other 10-26-2023 Evaluation note* Encounter Date Diagnosis Assessment Notes Treatment Notes Treatment Clinical Notes Aug, PAD (peripheral artery disease) (ICD-10 - I73.9) Based on history, this patient has mild PAD. I would recommend conservative nonoperative managementwith risk factor modification. This is the same plan for his carotid disease. We will see him back in 1 year to check both vascular beds. He understands agrees with plan all his questions were addressed I suggest he see Dr. Treviño for possible work-up of his left hip pain which seems to be bothering him. [facility] Other 10-16-2023 Hospital Discharge instructions Patient Education [...] include: ?8 oz (237 mL) of milk, msdhoyq-qcfyefhakuky-yovnr milk, and calcium- fortifiedfruit juice. Calcium-fortified means [...] ?Spinach (cooked), rhubarb, beets, sweet potatoes, and Marshallese chard. ?Peanuts. ?Potato chips, english fries, and baked potatoes with skin on. ?Nuts and nut products. ?Chocolate. If you regularly take a diuretic medicine, make sure to eat at least 1 or 2 servings of fruits or vegetables that are high in potassium each day. These include: ?Avocado. ?Banana. ?[place], prune, carrot, or tomato juice. ?Baked potato. [...] magnesium, fish oil, or vitamin B6. Take byoi-jng-fugxpvo and prescription medicines only as told by [...] Casseroles. Pizza. Lasagna. Frozen meals. Potato chips. Setswana fries. The items listed above may not [...] provider. Document Revised: 07/08/2022 Document Reviewed: 07/08/2022 Fit Steps Patient Education 2022 Gaudena. Follow Up Care 05/30/2023 13:07:47 With:REINIER HUSAIN, Salome Jaramillo, URL Address: [facility] [address], [place] [address]- When:Within 1 Year(s) Comments:w/MELQUIADES [facility] Jose David 05-15-2023 Evaluation note* Encounter Date Diagnosis Assessment Notes Treatment Notes Treatment Clinical Notes March, Medicare annual wellness visit, subsequent (ICD-10 - Z00.00) Personalized health [...] and exercise. Reviewed age-appropriate preventive testing recommended. March,SHD (arteriosclerotic heart disease) (ICD-10 - I25.10)- Echocardiogram 06/2022 LVEF 55 to 60%. The right ventricle appears enlarged with reduced systolic function. Mild tricuspid regurgitation. Mild mitral valve stenosis. Mild mitral regurgitation. A bioprosthetic aortic valve is seen with normal Doppler flows. This patient is stable without activity related CP, dyspnea or lightheadedness. They are instructedto continue exercise and AHA diet plan. March,ure hypercholesterolemia (ICD-10 - E78.00)Instructed on diet and exercise with continued statin therapy.Discussed the beneficial effects of lo wering cholesterol in reducing the risk for cerebrovascular and cardiovascular disease. March,therosclerosis of both lower extremities with intermittent claudication (ICD-10 - I70.213)Continue ASA, plavix and Statin therapy Walk daily until develop pain Inspect feet for ulcers March,Lumbar spondylosis with myelopathy (ICD-10 - M47.16)Neurgenic claudication? The patient is instructed to avoid bending, twisting or lifting. They are to use intermittent heat and ice as needed. They may schedule a massage or gentle manipulation. They may safely use Tylenol as needed. March,hronic venous insufficiency (ICD-10 - I87.2)Avoid salt and elevate lower extremities, support stockings, inspect legs and feet daily for blisters and ulcerations. March,Overweight (ICD-10 - E66.3)This patient has been instructed on a low-fat, high-fiber diet. They are instructed to reduce calories, portion sizes and snacks. It is recommended that they exercise for 30 minutes, 3-5 times weekly. March,S/P aortic valve replacement (ICD-10 - Z95.2)Control BP and serial Echocardiogram f/u Cardiology March,High risk medication use (ICD-10 - Z79.899) [facility] Other 06-20-2022 Evaluation note* Encounter Date Diagnosis Assessment Notes Treatment Notes Treatment Clinical Notes Apr, Carotid stenosis, bilateral (ICD -10 - I65.23) We reviewed today's carotid duplex studies which remained stable . This is stable from last year. Patient remains asymptomatic of his carotid occlusive disease and on good medical therapy with use ofaspirin and Plavix medications daily. His statin medication is temporarily on hold per his PCP. We will continue to follow him along on a routine basis and see him again next year for surveillance duplex studies. He knows to call us in the meantime with any issues. He verbalizes understanding of all discussion, agrees with this plan, denies any questions. [facility] Other 06-10-2022 Hospital Discharge instructions Patient Education 04/19/2022 10:54:30 Kidney Stones, Mtcl-ic-Ojzp Kidney Stones Kidney stones are rock-like masses [...] Follow these instructions at home: Medicines Take xgeo-jpc-mqydxpg and prescription medicines only as told by [...] 04/14/2009 Document Revised: 03/14/2020 Document Reviewed: 03/14/2020 [employer] Patient Education 2020 [employer] Follow Up Care 08/27/2021 10:53:23 With:Salome HILLS MD, URL Address: [facility] [address] [place] [address]- [id number] When:04/19/2023 [facility] evaluation + Plan note Future Appointments Appointment Date:04/21/2023 09:45:00 AM Scheduled Provider:Salome HILLS MD Location:[facility] Appointment Type:URO Office Visit [facility] evaluation + Plan note Future Appointments Appointment Date:08/30/2024 10:30:00 AM Scheduled Provider:Salome HILLS MD Location:[facility] Appointment Type:URO Office Visit [facility] evaluation + Plan note Future Appointments Appointment Date:09/26/2025 10:30:00 AM Scheduled Provider:Salome HILLS MD Location:[facility] Appointment Type:URO Office Visit [facility] evaluation noteNo assessment information available [facility] Work Phone: Evaluation note* Diagnosis Onset Date Resolution Status Viral URI acute [facility], [facility] Work Phone: Evaluation noteNo InformationNosaint joseph [facility] Other Evaluation note* Diagnosis Onset Date Resolution Status 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 acuteLeft foot dropacuteLumbar radiculopathy, chronicacuteSacroiliitis, not elsewhere classifiedacuteASHD (arteriosclerotic heart disease)acute 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acute Carotid stenosis, bilateralacuteChronic kidney diseaseacuteHypercholesterolemia acuteHypertensionacuteLumbar spondylosis with myelopathyacuteMedicare annual wellness visit, subsequentnoneactive [facility] Work Phone: Evaluation note* Diagnosis Onset Date Resolution Status ASHD (arteriosclerotic heart disease) acute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 acuteCarotid stenosis, bilateralacuteChronic kidney diseaseacute HypercholesterolemiaacuteHypertensionacuteLumbar spondylosis with myelopathy acuteMedicare annual wellness visit, subsequentnoneactiveHistory of left common carotid artery stent placementacute [facility] Work Phone: Evaluation note* Diagnosis Onset Date Resolution Status History of left common carotid artery st ent placement acuteASHD (arteriosclerotic heart disease)acute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acuteCarotid stenosis, bilateralacute Chronic kidney diseaseacuteHypercholesterolemiaacuteHypertensionacuteLumbar spondylosis with myelopathyacute [facility] Work Phone: Evaluation note* Diagnosis Onset Date Resolution Status ASHD (arteriosclerotic heart disease) acute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 acuteCarotid stenosis, bilateralacuteChronic heart failure with preserved ejection fraction (HFpEF)acuteChronic kidney diseaseacuteHypercholesterolemia acuteHypertensionacuteLumbar spondylosis with myelopathyacuteNonrheumatic mitral (valve) stenosisacute [facility] Work Phone: Evaluation note* Diagnosis Onset Date Resolution Status ASHD (arteriosclerotic heart disease) acute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 acuteCarotid stenosis, bilateralacuteChronic heart failure with preserved ejection fraction (HFpEF)acuteChronic kidney diseaseacuteHypercholesterolemia acuteHypertensionacuteLumbar spondylosis with myelopathyacuteNonrheumatic mitral (valve) stenosisacuteASHD (arteriosclerotic heart disease)acute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acuteCarotid stenosis, bilateralacuteChronic heart failure with preserved ejection fraction (HFpEF) acuteHypercholesterolemiaacuteHypertensionacute [facility] Work Phone: Evaluation note* Diagnosis Onset Date Resolution Status ASHD (arteriosclerotic heart disease) acute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 acuteCarotid stenosis, bilateralacuteChronic kidney diseaseacute HypercholesterolemiaacuteHypertensionacuteLumbar spondylosis with myelopathy acuteMedicare annual wellness visit, subsequentnoneactive [facility] Work Phone: History general Narrative - Reported* Type Description Date Medical History carotid stenosis Medical HistoryHTNSurgical Historyheart valve [id number] Historyleft internal carotid angioplasty and [id number] [facility] Other History general Narrative - Reported* Type Description Date Medical History carotid stenosis Medical HistoryHTNMedical HistoryS/P aortic valve replacementMedical History 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Medical HistoryBenign prostatic hyperplasia with lower urinary tract symptomsMedical HistoryMild episode of recurrent major depressive disorderMedical HistoryLumbar spondylosis with myelopathyMedical HistoryHyperlipidemia type IIMedical History ASHD (arteriosclerotic heart disease)Medical HistoryPure hypercholesterolemia Medical HistoryHigh risk medication useMedical HistoryMyalgiaMedical History Renal cystMedical HistoryPrimary insomniaMedical HistoryHematuria, grossMedical HistoryAdenomatous polyp of sigmoid colonMedical HistoryMalaiseMedical History Nonrheumatic aortic (valve) stenosisSurgical Historyheart valve [id number] Surgical Historyleft internal carotid angioplasty and [id number] History [id number] [id number] [id number] HistoryESWL, KIDNEY, [id number] HistorySEE SURGICAL [facility] Other History general Narrative - Reported* Type Description Date Medical History carotid stenosis Medical HistoryHTNMedical HistoryS/P aortic valve replacementMedical History 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Medical HistoryBenign prostatic hyperplasia with lower urinary tract symptomsMedical HistoryMild episode of recurrent major depressive disorderMedical HistoryLumbar spondylosis with myelopathyMedical HistoryHyperlipidemia type IIMedical History ASHD (arteriosclerotic heart disease)Medical HistoryPure hypercholesterolemia Medical HistoryHigh risk medication useMedical HistoryMyalgiaMedical History Renal cystMedical HistoryPrimary insomniaMedical HistoryHematuria, grossMedical HistoryAdenomatous polyp of sigmoid colonMedical HistoryMalaiseMedical History Nonrheumatic aortic (valve) stenosisSurgical Historyheart valve [id number] Surgical Historyleft internal carotid angioplasty and [id number] History [id number] [id number] ZebcjovHNC4125Zmcgqaiz HistoryESWL, KIDNEY, [id number] HistoryESWL, right kidney05/2023 Hospitalization HistorySEE SURGICAL [facility] Other Hospital course Narrative No data available for this section [facility] No data available for this section [facility] reason for referral (narrative)* Reason Referral for lumbar foraminal stenosis and left lower extremity weakness. 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 372) Referral Organization [facility] Janeen francis Referring Provider First Name Timbo Referring Provider Last Name Jenniffer Referring Provider Specialty Internal Me dicine Referred Organization [facility] Referred Provider Boby Mai Referred Address [address] [place], [place],[address] Referred Provider Specialty Neurological Surgery Referral Priority Routine General Notes Mr. Friedman has a histo ry of left sided [...] Notes Include recent and p revious MRI [facility] Other Reason for referral (narrative)No reason for referral information availableUniversity [facility] Work Phone: Chief Complaint and Reason for Visit Chief Complaint i65.23 Chief Complaint drainage in throat Reason for Visit Viral URI Chief Complaint I65.23 Chief Complaint I70.213 Chief Complaint lumbar foraminal robel nosis, left lower weakness WellnessReason for VisitHerniation of intervertebral disc between L5 and S1 Left foot drop Lumbar radiculopathy, chronic Sacroiliitis, not elsewhere classified ASHD (arteriosclerotic heart disease) 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 Carotid stenosis, bilateral Chronic kidney disease Hypercholesterolemia Hypertension Lumbar spondylosis with myelopathy Medicare annual wellness visit, subsequent Chief Complaint Wellness 1 YR F/U;CAROTID DUPLEX 1130A I65.23Reason for VisitASHD (arteriosclerotic heart disease) 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 Carotid stenosis, bilateral Chronic kidney disease Hypercholesterolemia Hypertension Lumbar spondylosis with myelopathy Medicare annual wellness visit, subsequent History of left common carotid artery stent placement Chief Complaint 1 YR F/U;CAROTID DUP EDER 1130A I65.23 3 month f/uReason for VisitHistory of left common carotid artery stent placement ASHD (arteriosclerotic heart disease) 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 Carotid stenosis, bilateral Chronic kidney disease Hypercholesterolemia Hypertension Lumbar spondylosis with myelopathy Chief Complaint 3 month f/u Atherosclerotic heart disease, CHF,Reason for VisitASHD (arteriosclerotic heart disease) 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 Carotid stenosis, bilateral Chronic heart failure with preserved ejection fraction (HFpEF) Chronic kidney disease Hypercholesterolemia Hypertension Lumbar spondylosis with myelopathy Nonrheumatic mitral (valve) stenosis Chief Complaint 3 month f/u Atherosclerotic heart disease, CHF, I25.10 E78.00Reason for VisitASHD (arteriosclerotic heart disease) 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 Carotid stenosis, bilateral Chronic heart failure with preserved ejection fraction (HFpEF) Chronic kidney disease Hypercholesterolemia Hypertension Lumbar spondylosis with myelopathy Nonrheumatic mitral (valve) stenosis Chief Complaint 3 month f/u Atherosclerotic heart disease, CHF, I25.10 E78.00 I70.213Reason for VisitASHD (arteriosclerotic heart disease) 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 Carotid stenosis, bilateral Chronic heart failure with preserved ejection fraction (HFpEF) Chronic kidney disease Hypercholesterolemia Hypertension Lumbar spondylosis with myelopathy Nonrheumatic mitral (valve) stenosis Chief Complaint 3 month f/u Atherosclerotic heart disease, CHF, I25.10 E78.00 I70.213 discuss test resultsReason for VisitASHD (arteriosclerotic heart disease) Atherosclerosis of both lower [...] test results 1 YR F/U; HAD PVR'S DONEReason for VisitASHD (arteriosclerotic heart disease) Atherosclerosis of both lower [...] Complaint Wellness 1 YR F/U;CAROTID DUPLEX 1130A I65.23Reason for VisitASHD (arteriosclerotic heart disease) Atherosclerosis of both lower [...] 2024 8:58am Coronary artery disease invo lving [place] coronary artery of [place] heart wi October 26, 2024 8:58am Nonrheumatic [...] 2024 9:43am PVD w/Serve Claudication October 18 2 024 8:56am PVD w/Serve Claudication October [...] 2024 8:58am Coronary artery disease invo lving [place] coronary artery of [place] heart wi October 26, 2024 8:58am Nonrheumatic [...] 2 024 8:56am PVD w/Serve Claudication October 18, 2 024 11:37am 6weeks October 26, 2024 8:58am 4 month f/u October 28, 2024 2:47pm CC Adult Risk Stratification November 042023 10:40am 4 week follow up;pad November 25, 2024 9:58am I70.213 December 07, 2024 1 2:50pm [facility] December 29, 2024 10:14am Reason for Visit Admit Date PAD (peripheral artery disease) October 18, 2024 8:56am Carotid stenosis, bilateral October 8:58am Chronic heart failure with p reserved ejection fraction (HFpEF) October 26, 2024 8:58am Coronary artery disease invo lving [place] coronary artery of [place] heart [place] October 26, 2024 8:58am Nonrheumatic [...] 29, 2025 9:59am Chronic kidney disease July 29 025 9:59am Hypercholesterolemia July 29 9:59am Hypertension [...] 29, 2025 9:59am Chronic kidney disease July 29 025 9:59am Hypercholesterolemia July 29 9:59am Hypertension [...] (peripheral artery disease) August 18, 2025 10:25am Chief Complaint Admit Date 4 month f/u July 29, 2025 9:59am 3 MONTH F/U; CAROTID RIGHT SIDE ONLY 10: 30A August 18, 2025 10:25am I65.23 September 15, 2025 1 :48pm Advance Directives Advance Directive Response Recorded Date/ [...] Recorded Date/T marcia father Diabetes mellitus Unknown DeceasedUnknownNot SpecifiedDeceasedUnknownHeart diseaseUnknownDiabetes mellitus Unknown Relationship Condition Age at Onset Recorded Date/T marcia father Diabetes mellitus Unknown DeceasedUnknownmotherDeceasedUnknownHeart diseaseUnknownDiabetes mellitusUnknown Relationship Condition Age at Onset Recorded Date/T marcia father Diabetes mellitus Unknown DeceasedUnknownmotherDeceasedUnknownHeart diseaseUnknownDiabetes mellitusUnknown sisterHeart diseaseUnknown Additional Source Comments Care Teams (unrecognized sec tion and content) Team Status: Active Member Role Status Dates Timbo Abad DO Primary Care Provider Active Team Status: Inactive Member Role Status Dates Timbo Abad DO Primary Care Provide r, Attending Provider Active Start: June 30, 2024 End: June 30, 2024 Team Status: Inactive Member Role Status Dates Timbo Abad DO Primary Care Provide r, Referring Provider Active Start: August 16, 2024 End: August 16, 2024Bertha Hutchins DOAttchino ProviderActiveStart: August 16, 2024 End: August 16, 2024 Team Status: Active Member Role Status Omar Abad DO Primary Care Provide r, Attending Provider Active Start: April 07, 2024 Team Status: Active Member Role Status Omar Abad DO Primary Care Provide r, Attending Provider Active Start: April 17, 2024 Team Status: Active Member Role Status Dates Timbo Abad DO Primary Care Provide r, Attending Provider Active Start: April 29, 2024 Team Status: Inactive Member Role Status Dates Timbo Abda DO Primary Care Provider Active Start: May 06, 2024 End: May 06, 2024Juan Murillo ProviderActiveStart: May 06, 2024 End: May 06, 2024 Team Status: Inactive Member Role Status Dates Timbo Abad DO Primary Care Provider Active Start: May 06, 2024 End: May 06, 2024Niya Baker IT HELP DESK TECHNICIAN-CAttending ProviderActiveStart: May 06, 2024 End: May 06, 2024 Team Status: Inactive Member Role Status Dates Timbo Abad DO Primary Care Provide r, Attending Provider Active Start: March 15, 2024 End: March 15, 2024 Team Status: Active Member Role Status Omar Abad DO Primary Care Provide r, Attending Provider Active Start: December 26, 2023 Team Status: Inactive Member Role Status Dates Timbo Abad DO Primary Care Provide r, Referring Provider Active Start: January 08, 2024 End: January 08, 2024Brisa Ireland IT HELP DESK TECHNICIAN-CAttending ProviderActiveStart: January 08, 2024 End: January 08, 2024 Team Status: Inactive Member Role Status Dates Timbo Abad DO Primary Care Provider Active Juan Murillo ProviderActive Team Status: Inactive Member Role Status Dates ANDERSON Almaraz Attending Provider Active Team Status: Inactive Member Role Status Omar Abad DO Primary Care Provider Active Niya Baker IT HELP DESK TECHNICIAN-CAttendarvin ProviderActive Team Status: Active Member Role Status Dates Abimael Cruz MD Compressor Station Engineer Active Gisselle LudwigSSM [facility] ProviderActive Team Status: Inactive Member Role Status Dates Timbo Abad DO Primary Care Provider Active Start: August 25, 2024 End: August 25, 2024Ling Zain Hutchins DOAttchino ProviderActiveStart: August 25, 2024 End: August 25, 2024SIRIA Zabalanaming ProviderActive Start: August 25, 2024 End: August 25, 2024 Team Status: Inactive Member Role Status Dates Timbo Abad DO Primary Care Provider Active Start: August 26, 2024 End: August 26, 2024Bertha Hutchins DOAttending ProviderActiveStart: August 26, 2024 End: August 26, 2024 Team Status: Inactive Member Role Status Dates Timbo Abad DO Primary Care Provide r, Attending Provider Active Start: August 31, 2024 End: August 31, 2024 Team Status: Inactive Member Role Status Dates Timbo Abad DO Primary Care Provider Active Start: September 15, 2024 End: September 15, 2024Madeirdre Finnegan MDAttending ProviderActiveStart: September 15, 2024 End: September 15, 2024 Team Status: Active Member Role Status Dates Timbo Abad DO Primary Care Provider Active Start: May 06, 2024 Niya Baker IT HELP DESK TECHNICIAN-CAttending ProviderActiveStart: May 06, 2024 Team Status: Inactive Member Role Status Dates Timbo Abad DO Primary Care Provider Active Start: October 04, 2024 End: October 04, 2024Madeirdre Finnegan MDAttending ProviderActiveStart: October 04, 2024 End: October 04, 2024 Team Status: Active Member Role Status Dates Timbo Abad DO Primary Care Provider Active Start: October 04, 2024 Jaylon Finnegan MDAttending Provider, Other ProviderActiveStart: October 04, 2024 Team Status: Inactive Member Role Status Dates Timbo Abad DO Primary Care Provider Active Start: October 18, 2024 End: October 18, 2024Madeirdre Finnegan MDAttending ProviderActiveStart: October 18, 2024 End: October 18, 2024 Team Status: Active Member Role Status Dates Timbo Abad DO Primary Care Provider Active Start: October 18, 2024 Jaylon Finnegan MDAttending Provider, Other ProviderActiveStart: October 18, 2024 Team Status: Inactive Member Role Status Dates Timbo Abad DO Primary Care Provider Active Start: October 26, 2024 End: October 26, 2024Abimael Cruz MDAttending ProviderActive Start: October 26, 2024 End: October 26, 2024 Team Status: Inactive Member Role Status Dates Timbo Abad DO Primary Care Provide r, Attending Provider Active Start: October 28, 2024 End: October 28, 2024 Team Status: Active Member Role Status Dates Timbo Abad DO Primary Care Provide r, Attending Provider Active Start: November 04, 2024 Team Status: Inactive Member Role Status Dates Timbo Abad DO Primary Care Provider Active Start: November 25, 2024 End: November 25, 2024Jaylon Finnegan MDAttchino ProviderActiveStart: November 25, 2024 End: November 25, 2024 Team Status: Inactive Member Role Status Dates Timbo Abad DO Primary Care Provider Active Start: December 07, 2024 End: December 07, 2024Jos Cabreratendarvin ProviderActiveStart: December 07, 2024 End: December 07, 2024 Team Status: Inactive Member Role Status Dates Timbo Abad DO Primary Care Provider Active Start: December 29, 2024 End: December 29, 2024Jaylon Finnegan MDAttending ProviderActiveStart: December 29, 2024 End: December 29, 2024 Team Status: Inactive Member Role Status Dates Timbo Abad DO Primary Care Provider Active Start: March 18, 2025 End: March 18enkatina Abad DOAttending ProviderActiveStart: March 18, 2025 End: March 18, 2025 Team Status: Active Member Role Status Dates Timbo Abad DO Primary Care Provider Active Start: March 25, 2025 Nan Ludwig ProviderActiveStart: March 25, 2025 Team Status: Inactive Member Role Status Dates Timbo Abad DO Primary Care Provider Active Start: May 12, 2025 End: May 12, 2025Madeirdre Finnegan MDAttending ProviderActiveStart: May 12, 2025 End: May 12, 2025 Team Status: Active Member Role Status Dates Timbo Abad DO Primary Care Provider Active Start: May 12, 2025 Jaylon Finnegan MDAttending ProviderActiveStart: May 12, 2025 Team Status: Inactive Member Role Status Dates Timbo Abad DO Primary Care Provider Active Start: July 29, 2025 End: July 29micaela Abad DOAttending ProviderActiveStart: July 29, 2025 End: July 29, 2025 Team Status: Active Member Role Status Dates Timbo Abad DO Primary Care Provider Active Start: July 30, 2025 Savannah Ludwigending ProviderActiveStart: July 30, 2025 Team Status: Inactive Member Role Status Dates Timbo Abad DO Primary Care Provider Active Start: August 18, 2025 End: August 18Rishi Guevaraending ProviderActiveStart: August 18, 2025 End: August 18, 2025 Team Status: Active Member Role/Relationship Status Dates Abimael Cruz MD Compressor Station Engineer Active [facility] Care ProviderActive Team Status: Inactive Member Role/Relationship Status Dates Timbo Abad DO Primary Care Provider Active Start: July 29, 2025 End: July 29micaela Abad DOAttending ProviderActiveStart: July 29, 2025 End: July 29, 2025 Team Status: Active Member Role/Relationship Status Dates Timbo Abad DO Primary Care Provider Active Start: July 30, 2025 Nan Ludwig ProviderActiveStart: July 30, 2025 Team Status: Inactive Member Role/Relationship Status Dates Timbo Abad DO Primary Care Provider Active Start: August 18, 2025 End: August 18aditya Degroot MDAttending ProviderActiveStart: August 18, 2025 End: August 18, 2025 Team Status: Inactive Member Role/Relationship Status Dates Timbo DO Jenniffer Primary Care Provider Active Start: September 15, 2025 End: September 15aditya Degroot DIANAttending ProviderActiveStart: September 15, 2025 End: September 15, 2025 Goals (unrecognized section and content) Goals may be documented in a n alternate section REASON FOR VISIT (unrecogniz ed section and content) VASC 1 YR FU; CAROTID DUPLEX 1PWELLNESS MBNo InformationERRORMedication Clarification4 month follow up; CHING's B/L legs at 11:006 month Follow up6 month Follow upMRI resultsface to face for AFO brace- fax note to [phone] (unrecognized sect ion and content) No Status Records FoundNo Status Records FoundNo Status Records FoundNo Status Records FoundNo Status Records FoundNo Status Records Found INFORMATION SOURCE (unrecogn ized section and content) DATE CREATED AUTHOR 03/25/2023 [facility] DATE CREATED AUTHOR 'S ORGANIZ ATION 01/16/2024 [facility] DATE CREATED AUTHOR 'S ORGANIZ ATION 02/12/2024 [facility] DATE CREATED AUTHOR AUTHOR'S ORGANIZ ATION 08/18/2025 [facility] DATE CREATED AUTHOR AUTHOR'S ORGANIZ ATION 08/20/2025 [facility] DATE CREATED AUTHOR AUTHOR'S ORGANIZ ATION 09/03/2025 [facility] FOR RECORDS PERTAINING TO PATIENTS WHO ARE [...] PRIMARY CLINICAL RECORDS. [facility] [employer] provides no warranty or guarantee of the accuracy or completeness of information in this document.
--- NOTE | 2025-09-16 09:08 | XR_ITS ---
The [address] [address] Patient Name: KANG BRADY MRN: [id number] date: 1940 Sex: M Assigned Patient Location: RAD Current Patient Location: [facility] Accession/Order Number: [id number] Exam Date: 09/16/2025 09:19 Report Date: 09/16/2025 09:50 At the request of: SALOME HILLS MD Procedure: XR abdomen 1V SINGLE VIEW ABDOMEN COMPARISON: 09/13/2024 CLINICAL DATA: Annual follow-up of kidney stones. Supine view of the abdomen and pelvis was obtained. No dilated small bowel loops are seen. There is minor colonic stool. There is redemonstration of a 5 mm elongate calcification overlying the central medial aspect of the right kidney which may be a stone. No additional suspected radiopaque renal or ureteral calculi are noted. Vascular calcifications are seen. There is levoscoliotic curvature and degenerative change at the spine. XR/XR abdomen 1V IMPRESSION: STABLE RIGHT NEPHROLITHIASIS. Impression dictated by: Margy Epstein M.D. 09/16/2025 9:50 AM Dictation Location: [place] [address] Electronically authenticated by: [id number] Y Date: 09/16/2025 09:50
== END 2025-09-16 08:58 | disposition home or self-care (01) ==
LOC: RAD 08:59
PROVIDERS: PCP Internal Medicine; Visit Provider Urology
DX: N20.0 Calculus of kidney (principal)
CPT/HCPCS: 74018

== ENCOUNTER 2025-09-26 07:20 | Outpatient (OUT) | payer MEDICARE, OTHER, SELFPAY ==
--- OUTSIDE RECORDS SUMMARY | 2025-09-26 07:24 | XMS_ITS | Clinical Summary ---
Author Organization [facility] Address [address] [place] [address] Phone Care Team Providers Care Work Adjustment Instructor Name Role Phone Unavailable Primary Care Provider Unavailabl e Social History Tobacco UseTypesPacks/DayYears UsedDateSmoking Tobacco: Never AssessedSex and Gender InformationValueDate RecordedSex Assigned at BirthNot on fileLegal Sex Male08/30/2024 12:27 PM EDTGender IdentityNot on fileSexual OrientationNot on file Plan of Treatment Health MaintenanceDue DateLast DoneCommentsLipid Panel1942Yearly Adult Rsezgpst1940DTaP/Tdap/Td Vaccines (1 - Tdap)1964Pneumococcal Vaccine (1 of [...]
--- OUTSIDE RECORDS SUMMARY | 2025-09-26 07:25 | XMS_ITS | CCD ---
Author Organization [facility] Care Team Providers Care Auto Appraiser Name Role Phone TIMBO ABAD Primary Care Physician DO Timbo Abad Primary Care Provider [phone] MD Jaylon Finnegan Attending Provider Niya Baker Unavailable Timbo Abad Unavailable JENNIFFER, [...] Unavailable HILLS ., DR MCMAHON Consulting Unavailable MEMPHIS, DR IVY Jenkins Consulting Unavailable ANDERSON Ann Attending Provider DO Timbo Abad Primary Care Provider FREEMAN Baker Attending Provider Jaylon Finnegan Unavailable [phone] DO Timbo Abad Primary Care Provider FREEMAN Baker Attending Provider TITA RIVERA Attending Unavailable TITA RIVERA Attending Unavailable NAVNEET BLANC Attending Unavailable RADHA THOMSON Referring Unavailable DO Timbo Abad Primary Care Provider FREEMAN Baker Attending Provider Ball, DO Timbo Primary Care Provider Twodeo, DO Bertha Pittman Attending Provider MD Abimael Cruz Referring Provider Ball, DO Timbo Primary Care Provider Twoerickag, DO Bertha Pittman Attending Provider MD Abimael Cruz Referring Provider Jenniffer DO, Timbo Primary Care Provider Jaylon Finnegan MD Attending Provider Samuel DOMÍNGUEZ-C, Niya Jaramillo Attending Provider Jenniffer DO, Timbo Primary Care Provider Jenniffer DO, Timbo Attending Provider [phone] Jaylon Finnegan MD Attending Provider Jenniffer DO, Timbo Primary Care Provider Jenniffer DO, Timbo Attending Provider Salome HILLS Attending Unavailable Salome HILLS Attending Unavailable Jenniffer GARCIA, Timbo Primary Care Provider Dandre Degroot MD Attending Provider Jenniffer GARCIA, Timbo Primary Care Provider Jenniffer GARCIA, Timbo Attending Provider [phone] Dandre Degroot MD Attending Provider Timbo Abad Primary Care Unavailable Jaylon Finnegan T Admitting Unavailabl e Jaylon Finnegan T Attending Unavailabl e Timbo Abad Primary Care Unavailable LangJaylon michelle T Admitting Unavailabl e Jaylon Finnegan T Attending Unavailabl Dandre Stout Admitting Unavailable Dandre Degroot Attending Unavailable Timbo Abad Primary Care Unavailable Jaylon Finnegan T Attending Unavailabl e Jaylon Finnegan T Admitting Unavailabl e Jenniffer, Timbo Primary Care Unavailable Jenniffer, Timbo Primary Care Unavailable Niya Vela Admitting Unavailable Niya Vela Attending Unavailable Jenniffer, Timbo Primary Care Unavailable Jaylon Finnegan T Admitting Unavailabl e Jaylon Finnegan Attending Unavailabl e Trixie HUSAIN, Ramu Miller Attending Unavailable Allergies Allergy ClassificationReported Allergen(s)Allergy TypeDate of OnsetReaction(s) Facility (1 source)patient allergy list reviewed by nurse or physiciaPropensity to adverse peqlbszuh57-22-8369Rsipmmt:[facility] Other (1 source)No Known Medication Allergies; Translations: [No Known Medication Allergies]Propensity to adverse reactions (disorder)[facility] Medications Current Medications MedicationDrug Class(es)DatesSig (Normalized)Sig (Original)aspirin 81 mg delayed release oral tablet (20 sources)Platelet Aggregation Inhibitor, Nonsteroidal Anti-inflammatory Drug Start: 83-66-4803fczp 1 tablet by mouth once dailyStart: 50-66-9446ttfi 1 mg by mouth once dailyaspirin 81 mg oral tablet mg tab(s), Oral, Daily, Refills(s) 0 Start Date: 05/17/19 Status: Orderedtake 1 tablet by mouth every twenty-four hours Aspirin 81 MG 1 tablet Orally Once a day Activeatorvastatin 80 mg oral tablet (20 sources)HMG-CoA Reductase InhibitorStart: 09-21-2024 End: 12-98-4403gklv 1 tablet by mouth once dailyStart: 04-21-2023 End: 37-62-2279ltkk 1 tablet by mouth once daily in the eveningAtorvastatin 10 mg tablet Discontinued 10 MG PO January 08, 2024 12:00am September 13, 2024 10:44pm FreeTextSig: TAKE 1 TABLET EVERY EVENING; Note: Source Status: Taking; Provider: Jenniffer Izquierdo ( )cholecalciferol 0.125 mg oral capsule (16 sources)Vitamin DStart: 99-17-5810njao 1 capsule by mouth once daily citalopram 20 mg oral tablet (20 sources)Serotonin Reuptake InhibitorStart: 73-10-7931uryf 1 tablet by mouth once dailyStart: 05-17-2019 End: 39-18-3379wvvr 1 tablet by mouth once dailyCitalopram 20 mg tablet Discontinued 20 MG PO Daily January 08, 2024 12:00am March 12, 2024 3:28pmtake 1 tablet by mouth every twenty-four hoursclopidogrel 75 mg oral tablet (20 sources)P2Y12 Platelet InhibitorStart: 47-06-7486Qwtls: 05-17-2019 End: 63-29-1077Hydgxvrhbrm 75 mg tablet Discontinued 75 MG PO January 08, 2024 12:00am February 27, 2024 12:30pmfinasteride 5 mg oral tablet (20 sources)5-alpha Reductase InhibitorStart: 27-21-9671hbiz 1 tablet by mouth at bedtimeStart: 01-08-2024 End: 24-02-6765Beoknutqwkp 5 mg tablet Discontinued 5 MG PO January 08, 2024 12:00am March 12, 2024 3:28pmStart: 55-49-3647tzwh 1 tablet by mouth once daily finasteride 5 mg Tab 5 mg = 1 tab(s), Oral, Daily, # 90 tab(s), Refills(s) 3, Pharmacy: [facility], 152, cm, 04/19/22 10:18:00 EDT, Height/Length Dosing, 89.2, kg, 04/19/22 10:18:00 EDT, Weight Dosing Start Date: 02/12/23 Status: OrderedFinasteride Activefolic acid 1 mg oral tablet (6 sources)Start: 07-31-2025 End: 74-14-6808rnmt 1 tablet by mouth once daily24 hr metoprolol succinate 25 mg extended release oral tablet (20 sources)beta-Adrenergic BlockerStart: 73-61-7938Unxqs: 08-16-2024 End: 57-81-2146pikz 2 tablets by mouth twice dailyMetoprolol Succinate 25 mg tablet extended release 24 hr Discontinued 12.5 MG PO Twice daily August 16, 2024 1:25pm June 01, 2025 7:37pmStart: 46-80-4006cfcf 12.5 mg by mouth twice dailyMetoprolol Succinate Active 12.5 MG PO Twice daily August 16, 2024 1:25pm Start: 06-07-2024 End: 75-55-5992Hgyevkpjwa Succinate 25 mg tablet extended release 24 hr Discontinued 0 .ROUTE .COMPLEX 90 3 June 07, 2024 8:59am August 16, 2024 1:27pm TAKE 1 TABLET DAILYStart: 06-07-2024 End: 51-16-4590Iljnqyixsn Succinate 25 mg tablet extended release 24 hr Discontinued 0 .ROUTE .COMPLEX June 07, 2024 8:59am August 16, 2024 1:27pm TAKE 1 TABLET DAILYStart: 06-07-2024 End: 37-86-5906Oaxzawmrrq Succinate Discontinued 0 .ROUTE .COMPLEX June 07, 2024 8:59am August 16, 2024 1:27pm TAKE 1 TABLET DAILYStart: 06-07-2024 End: 40-36-1894Itbjjcbvyf Succinate Discontinued 0 .ROUTE .COMPLEX June 07, 2024 9:59am August 16, 2024 2:27pm TAKE 1 TABLET DAILYStart: 06-07-2024 Metoprolol Succinate Active 0 .ROUTE .COMPLEX June 07, 2024 9:59am TAKE 1 TABLET DAILYStart: 01-08-2024 End: 44-48-0946giuz 1 tablet by mouth every twenty-four hoursMetoprolol Succinate 25 mg tablet extended release 24 hr Discontinued MG PO January 08, 2024 12:00am June 07, 2024 8:59amStart: 01-08-2024 End: 15-31-9424Qxmniibdig Succinate Discontinued MG PO January 08, 2024 12:00am June 07, 2024 8:59amStart: 17-21-6823twbh 25 mg by mouth once daily Metoprolol Tartrate Active 25 MG PO Daily October 31, 2021 1:00amStart: 50-56-2170fsxdfwlyqs 25 mg ER Tab 12.5 mg = 0.5 tab(s), Oral, BID, Refills(s) 0, High blood pressure Start Date: 05/17/19 Status: Orderedtake 1 tablet by mouth once dailyMetoprolol Succinate ER 25 MG 1 tablet Orally Once a day Active Metoprolol Tartrate 25 MG TAKE 1/2 TABLET TWICE A DAY for 90 ActiveMulti Vitamin+ (2 sources)Start: 46-92-1875Izuts Vitamin+ Refill(s) 0 Start Date: 12/20/19 Status: Orderedpolysaccharide iron complex 150 mg oral capsule (3 sources)Start: 22-89-6629vpupespixwxlpiudn potassium chloride 10 meq extended release oral tablet (20 sources)Start: 81-77-8387Zcmtr: 27-81-6164Gxwivweqs Chloride (Xem-Wros-Nxb M10) 10 mEq oral tablet, extended release 10 mEq = 1 tab(s), Refills(s) 0 Start Date: 09/20/24 Status: OrderedStart: 03-15-2024 End: 81-52-9295Dkmyxfati Chloride (Klor-Con M10) 10 mEq tablet,ER particles/crystals Discontinued 10 MEQ PO Daily 90 90 3 June 30, 2024 9:34am June 02, 2025 5:51amsimvastatin 20 mg oral tablet (4 sources)HMG-CoA Reductase InhibitorStart: 10-02-7095eulp 20 mg by mouth at bedtimeSimvastatin Active 20 MG PO bedtime October 31, 2021 1:00amtake 1 tablet by mouth every twenty-four hourstamsulosin hydrochloride 0.4 mg oral capsule (20 sources)alpha-Adrenergic BlockerStart: 83-39-0824raix 1 capsule by mouth once dailyStart: 01-08-2024 End: 86-04-2169Zhskywyojr 0.4 mg capsule Discontinued MG PO January 08, 2024 12:00am March 12, 2024 3:28pmStart: 01-08-2024 End: 65-47-5390Fxtbfcyikn Discontinued MG PO January 08, 2024 12:00am March 12, 2024 3:28pmStart: 13-43-8694oxyg 1 capsule by mouth once dailytamsulosin 0.4 mg Cap 0.4 mg = 1 cap(s), Oral, Daily, # 90 cap(s), Refills(s) 3, Pharmacy: [facility], 178, cm, 08/25/23 12:26:00 EDT, Height/Length Dosing, 90, kg, 08/25/23 12:26:00 EDT, Weight Dosing Start Date: 08/25/23 Status: Orderedtake 1 capsule by mouth every twenty-four hourstorsemide 20 mg oral tablet (20 sources)Loop DiureticStart: 84-25-9656Tjshl: 10-05-2024 End: 19-50-5929lved 1 tablet by mouth once dailyTorsemide 20 mg tablet Discontinued 20 MG PO Daily 10 10 0 October 05, 2024 2:33pm October 25, 2024 7:37amStart: 11-48-7489ckwh 1 tablet by mouth once dailytorsemide 20 mg Tab 20 mg = 1 tab(s), Oral, Daily, Refills(s) 0 Start Date: 09/20/24 Status: Ordered Start: 05-14-2024 End: 36-74-5559nrah 1 tablet by mouth once dailyTorsemide 20 mg tablet Discontinued 0 .ROUTE .COMPLEX 90 1 May 18, 2024 10:37am October 05, 2024 2:34pm TAKE 1 TABLET BY MOUTH EVERY DAYStart: 04-19-2024 End: 49-27-2259bmvh 1 tablet by mouth once dailyTorsemide 20 mg tablet Discontinued 20 MG PO Daily 90 90 1 May 11, 2024 8:39am May 14, 2024 7:44am traMADol hydrochloride 50 mg oral tablet (7 sources)Opioid AgonistStart: 93-45-4797bygx 1 tablet by mouth every eight hours as needed for pain Completed/Discontinued Medications MedicationDrug Class(es)DatesSig (Normalized)Sig (Original)doxepin 6 mg oral tablet (10 sources)Tricyclic AntidepressantStart: 10-28-2024 End: 57-54-5315kiye 1 tablet by mouth once daily at bedtime as needed for sleep Doxepin 6 mg tablet Discontinued 6 MG PO Daily at bedtime as needed for sleep 30 30 0 October 28, 2024 12:00am March 18, 2025 9:32amfurosemide 40 mg oral tablet (20 sources)Loop DiureticStart: 03-15-2024 End: 99-76-0384pzwx 1 tablet by mouth once dailyFurosemide 40 mg tablet Discontinued 40 MG PO Daily March 14, 2024 11:00pm April 21, 2024 8:59am hydroCHLOROthiazide 12.5 mg oral tablet (20 sources)Thiazide DiureticStart: 01-08-2024 End: 04-33-5909zdmb 1 tablet by mouth once daily in the morning Hydrochlorothiazide 12.5 mg tablet Discontinued 1 TAB PO Daily January 08, 2024 12:00am April 26, 2024 2:04pm FreeTextSi tablet in the morning Orally Once a day; Note: Source Status: Taking; Provider: Jenniffer Izquierdo ( )Start: 65-23-6839ynbf 1 capsule by mouth once daily hydrochlorothiazide 12.5 mg Cap 12.5 mg = 1 cap(s), Oral, Daily, # 90 cap(s), Refills(s) 3, Pharmacy: [facility], 178, cm, 08/25/23 12:26:00 EDT, Height/Length Dosing, 90, kg, 08/25/23 12:26:00 EDT, Weight Dosing Start Date: 08/25/23 Status: OrderedStart: 50-90-8006kvgx 1 capsule by mouth once dailyhydrochlorothiazide 12.5 mg Cap 12.5 mg = 1 cap(s), Oral, Daily, # 90 cap(s), Refills(s) 3, Pharmacy: [facility], 152, cm, 08/27/21 10:12:00 EDT, Height/Length Dosing, 89, kg, 08/27/21 10:12:00 EDT, Weight Dosing Start Date: 12/28/21 Status: OrderedStart: 31-58-7595mtlh 12.5 mg by mouth once dailyHydrochlorothiazide Active 12.5 MG PO Daily October 31, 2021 1:00am Problems Active Problems Problem ClassificationProblemDateDocumented DateEpisodic/ChronicAcquired foot deformities (20 sources)Foot drop, left foot; Translations: [Foot-drop]EpisodicAdjustment disorders (5 sources)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; Translations: [Mixed disorders asreaction to stress]Onset: 00-03-1652Swdvcvv Calculus of urinary tract (20 sources)Kidney stone; Translations: [Calculus of kidney]Onset: 07-22-2016 EpisodicChronic kidney disease (20 sources)Chronic kidney disease; Translations: [Chronic kidney disease, unspecified]91-53-0591YnhwonyBqkabzdjmf heart failure; nonhypertensive (20 sources)Chronic diastolic (congestive) heart failure; Translations: [Acute on chronic diastolic (congestive) heart failure]Onset: 87-75-5253FcagwrfKpvgjim on above:Echo: LVEF 60-65%, normal RV size/function, LAE, diastolic dysfunction, mild MS, Mild - oronary atherosclerosis and other heart disease (20 sources)Coronary arteriosclerosis; Translations: [Atherosclerotic heart disease of kake coronary artery without angina pectoris]Onset: 09-15-2018 97-82-1376OookpsoVydbowl on above:CABG x 2014,Lexiscan Stress: no fixed or reversible defect - oronary atherosclerosis and other heart disease (3 sources)Presence of aortocoronary bypass graft; Translations: [Aortocoronary bypass status]68-62-3630NsoplvjnEkcfktlayi and other anemia (8 sources)Anemia; Translations: [Anemia, unspecified]06-38-9103Kthjcqnr Disorders of lipid metabolism (20 sources)Pure hypercholesterolemia; Translations: [Pure hypercholesterolemia, unspecified]Onset: 79-87-4422AjbtnguSzildcnoahfcfv and diverticulitis (5 sources)Diverticulitis of colon; Translations: [Diverticulitis of intestine, part unspecified, without perforation or abscess without bleeding]Onset: 81-29-4186ZvhxprwZqldhbamzd disorders (3 sources)Gastroesophageal reflux rpurlok09-65-4030MzkhzhhOhqivicud hypertension (20 sources)Hypertensive disorder; Translations: [Essential (primary) hypertension]52-91-5725OnooobfLodgg valve disorders (20 sources)History of aortic valve replacement; Translations: [Presence of prosthetic heart valve]Onset: 85-23-8704WmnyhivHyvmtxfwnsz of prostate (20 sources)Benign prostatic hypertrophy with outflow obstruction; Translations: [Benign prostatic hyperplasia with lower urinary tract symptoms]Onset: 11-38-1441KrysknbMgbmzkjdtrwuy mental health disorders (20 sources)Male erectile disorder; Translations: [Erectile dysfunction]Onset: 65-48-8998RzilokyNwld disorders (18 sources)Mild recurrent major depression; Translations: [Major depressive disorder, recurrent, mild]Onset: 37-40-9354GsbmvypGxrikjjej or stenosis of precerebral arteries (20 sources)Bilateral stenosis of carotid arteries; Translations: [Occlusion and stenosis of bilateral carotid arteries]Onset: 09-18-2018 Resolved: 38-17-7771GjuxirlNykxyoq on above:US: left < 50%, right 65-70% - 04/2024Other aftercare (9 sources)H/O: high risk medication; Translations: [Other alf (current) drug therapy]EpisodicOther aftercare (5 sources)Long-term current use of drug therapy; Translations: [Other alf (current) drug therapy]EpisodicOther and unspecified benign neoplasm [...] loss; Translations: [Unspecified hearing loss, unspecified ear]Onset: 29-59-4363JyytwpdQopdt ear and sense organ disorders (4 sources)Impacted cerumen; Translations: [Impacted cerumen, left ear]Episodic Other ear and sense organ disorders (1 source)Impacted cerumen, left ear; Translations: [Impacted cerumen, left ear] EpisodicOther endocrine disorders (3 sources)Male fexjdilrauuq30-37-1589IcuouqbFckow injuries and conditions due to external causes (5 sources)History of fall; Translations: [History of falling]EpisodicOther male genital disorders (3 sources)Lxlxvfdhn82-60-2786CohxfhjDafmm nutritional; endocrine; and metabolic disorders (4 sources)Overweight; Translations: [Overweight]EpisodicOther nutritional; endocrine; and metabolic disorders (4 sources)Overweight; Translations: [Overweight]EpisodicOther screening for suspected conditions (not mental disorders or infectious disease) (20 sources)Encounter for screening for malignant neoplasm of colon; Translations: [Raised TSH level]Onset: 145812-73-2770PuscfsmhVlsmgzgyfq and visceral atherosclerosis (20 sources)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; Translations: [Atherosclerosis of kake arteries of extremities with intermittent claudication, bilateral [...] w/ exerciseResidual codes; unclassified (3 sources)H/O: anticoagulant -48-5354PpeklnkbSressoyb codes; unclassified (20 sources)Past history of procedure; Translations: [Other specified postprocedural states]23-58-3441EyjsxrjtVqxikkjq codes; unclassified (2 sources)Other specified postprocedural states; Translations: [Other postprocedural status]26-56-4234QftsuhbgGknjpdnzr and history of mental health and substance abuse codes (20 sources)Ex-smoker; Translations: [History of tobacco use]Onset: 09-15-2018 93-01-3807CnzgwtbuCbbvodrophb; intervertebral disc disorders; other back problems (20 sources)Lumbar spondylosis with myelopathy; Translations: [Other spondylosis with myelopathy, lumbar region]ChronicSpondylosis; intervertebral disc disorders; other back problems (20 sources)Backache; Translations: [Unspecified backache]Onset: 09-15-2018 72-26-6844RkcedhecIgujvwc and strains (5 sources)Low back strain; Translations: [Strain of muscle, fascia and tendon of lower back, initial encounter]EpisodicThyroid disorders (11 sources)Subclinical hypothyroidism; Translations: [Other specified hypothyroidism]75-25-6405Dcfmqla Past or Other Problems Problem ClassificationProblemDateDocumented DateEpisodic/ChronicAbdominal hernia (5 sources)Inguinal hernia; Translations: [Unilateral inguinal hernia, without obstruction or gangrene, not specified as recurrent]Onset: 94-54-1838Mbozbfcn Anal and rectal conditions (5 sources)Stenosis of rectum and anus; Translations: [Stenosis of rectum and anus]Onset: 68-53-3597SgltumjqWyxatmebvk and other anemia (4 sources)Anemia due to chronic blood loss; Translations: [Iron deficiency anemia secondary to blood loss (chronic)] Resolved: 33-85-9200MevglbfVvzyziqhof and other anemia (1 source)Iron deficiency anemia secondary to blood loss (chronic); Translations: [Iron deficiency anemia secondary to blood loss (chronic)] Resolved: 34-35-1047AgjktgkAdwvxbvpedebz symptoms and ill-defined conditions (20 sources)Delay when starting to pass urine; Translations: [Increased frequency of urination]Onset: 07-22-2016 Resolved: 041962-90-7261UcfpyixkYioaabrecglcr and screening for infectious disease (6 sources)Suspected disease caused by 2019-nCoV; Translations: [Suspected COVID-19 virus infection]Onset: 156780-57-7401FoklrlkeUbryljnmjdcw conditions of male genital organs (3 sources)Prostatitis Resolved: 217357-11-9216LppndbwmKberteq and fatigue (5 sources)Malaise and fatigue; Translations: [Other malaise and fatigue]Onset: 42-64-0226XrykhwyoGipn disorders (1 source)Mood disorders; Translations: [Major depressive disorder, recurrent episode, mild]Onset: 70-31-7742Uyqin aftercare (5 sources)Other termination clerk (current) drug therapy; Translations: [OTH PUBLIC HEALTH DOCTOR CURRENT DRUG THERAPY]Onset: 23-62-2883YgrkexrvGbbas and unspecified benign neoplasm (5 sources)Polyp of colon; Translations: [Polyp of colon]Onset: 09-15-2018 EpisodicOther circulatory disease (5 sources)Elevated blood-pressure reading without diagnosis of hypertension; Translations: [Elevated blood pressure reading without diagnosis of hypertension]Onset: 98-48-0408EbqssoybVwmdm connective tissue disease (4 sources)Myalgia, unspecified site; Translations: [MYALGIA UNSPECIFIED SITE] Onset: 22-24-9993KqrsmgbuKzank ear and sense organ disorders (5 sources)Disorder of external ear; Translations: [Other specified disorders of right external ear] Resolved: 41-13-8507CpaxzoytXpifv gastrointestinal disorders (5 sources)Constipation; Translations: [Other constipation]Onset: 09-15-2018 EpisodicOther gastrointestinal disorders (4 sources)Disorder of digestive system; Translations: [Personal history of other diseases of digestive disease]Onset: 35-84-9420VusvuoubLfqmf lower respiratory disease (4 sources)Orthopnea; Translations: [Orthopnea]Onset: 03-52-2296CmmkmkrcOpxzl lower respiratory disease (1 source)Orthopnea; Translations: [Orthopnea]Onset: 90-28-8793CyypyalxSeapb upper respiratory infections (7 sources)Viral upper respiratory tract infection; Translations: [Acute upper respiratory infection, unspecified]Onset: 418402-24-0575KmgggjudZnffzwsn codes; unclassified (5 sources)H/O: risk factor; Translations: [Other specified personal history presenting hazards to health]Onset: 75-96-5506RvsklsuiRiypizglgvcy (1 source)Personal history of other diseases of digestive disease; Translations: [Personal history of other diseases of digestive disease]Onset: 09-15-2018 Unclassified (1 source)Unspecified backache; Translations: [Unspecified backache]Onset: 09-15-2018 Results Test NameValueInterpretationReference RangeFacilityCT angio neckon 44-79-6935EW angio neckUN[facility]ERSITY [facility] [place] [address] CT Scan Report Signed Patient: Max Friedman MR#: [id number] [birth year] : 1940 Acct:[id number] Age/Sex: 85 / M ADM Date: 09/15/25 Loc: CT Room: Type: [facility] Attending Dr: Dandre Degroot MD Copies to: Dandre Degroot MD Ordering Provider: Dandre Degroot MD Date of Service: 09/15/25 CT/CT angio neck: I65.23 - Occlusion and stenosis of bilateral carotid avila... ([id number]) CT/CT angio head: I65.23 - Occlusion and [...] kV according to patient size, or use of iterative reconstruction technique. FINDINGS: [Three-vessel arch with moderate to severe calcific plaque. There is moderate plaque which extends into the great vessels. Moderate plaque brachycephalic noted. There is severe plaque involving the right subclavian with suspected high-grade narrowing. 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 This corresponds to the reversal of the right vertebral artery flow on Doppler [...] degree of narrowing due to degree of calcific plaque both degree of narrowing is approximately 75% [...] with heavy plaque ostium narrowing involving the right proximal subclavian artery and diminished enhancement involving the right proximal vertebral artery noted. This corresponds to the Doppler ultrasound findings. Impression dictated by: Garret Santoyo M.D. 09/15/2025 4:26 PM Dictation Location: [place] [address] Transcribed By: [facility] 09/15/25 1626 Dictated By: Garret Santoyo MD 09/15/25 1612 Signed By: 09/15/25 1626NoGranville Medical Center Physician GroupISTAT XRay CREon 10-36-7565PSJGQ GFR>60.0NoGranville Medical Center Physician GroupComment on above:Result Comment: PERFORMED BY: [place] [address] PATHOLOGIST RN OR LVN SERA NERI M.D.Performed By: #### ISCRE #### [facility] [address] [place] [address] USANo Panel InformationOrdered By: Dandre Degroot on 09-15-2025 Bedside Estimated GFR (eGFR)> 60.0[facility] CenterWhole blood creatinine measurementOrdered By: Dandre Degroot on 40-62-1397Wceghrsmxm [Mass/Vol] 1.2 mg/dLNormal0.6-1.3FPremier Health Miami Valley HospitalComment on above:ER/ESD physician is notified/shown all ISTAT results.Critical values may be confirmed by laboratorytesting ifdeemed necessary by ER attending doctor.Result Comment: ER/ESD physician is notified/shown all ISTAT results. Critical values may be confirmed by laboratory testing if deemed necessary by ER attending doctor.Performed By: #### ISCRE #### [facility] [address] [place], [place] [id number] USAUS carotid doppler RTon 16-08-0188VD carotid doppler RT [facility] [address] [place] [address] Ultrasound Report Signed Patient: Max Friedman MR#: [id number] [birth year] : 1940 Acct:[id number] Age/Sex: 85 / M ADM Date: 08/18/25 Loc: [facility] Room: Type: [facility] Attending Dr: Jaylon Finnegan MD Ordering Provider: [...] Degroot M.D. 08/18/2025 1:33 PM Dictation Location: [facility] Tech: Karina Black Transcribed By: DANIEL 08/18/25 1333 Dictated By: Dandre Degroot MD 08/18/25 1331 Signed By: 08/18/25 1333[facility] Physician 81St Medical GroupGlomerular filtration rate (GFR) estimation in non- AmericanOrdered By: Timbo Abad on 07-30-2025 GFR/1.73 sq M.predicted among non-blacks MDRD (S/P/Bld) [Vol rate/Area]58 mL/min/{1.73_m2}Low>=60 mL/min/1.73m 2FPremier Health Miami Valley Hospital Laboratory - Chemistry and Chemistry - challengeOrdered By: Timbo Abad on 50-95-9373Xmgsqmq [Mass/Vol]8.8 mg/dL8.5-10.1FPremier Health Miami Valley Hospital Chloride [Moles/Vol]107 mmol/C82-604BswtfijwvUniversity Hospitals Geauga Medical CenterCO2 [Moles/Vol]26.9 mmol/L21.0-32.0[facility] Medical CenterCobalamin (Vitamin B12) [Mass/Vol]1006 pg/cI002-7599HpqrrmzpwUniversity Hospitals Geauga Medical Center Comment on above:Performed at: [employer] [address] [id number] Director: Nadir Chavez PhD, Phone: [phone] [Mass/Vol]1.19 mg/dL0.70-1.30[facility] Geauga Medical CenterFerritin [Mass/Vol]49.0 ng/mL26.0-388.0[facility] Medical CenterFree T4 [Mass/Vol]0.94 ng/dL0.76-1.46[facility] Medical CenterGFR/1.73 sq M.predicted MDRD (S/P/Bld) [Vol rate/Area]mL/min/{1.73_m2}>=60 mL/min/1.73m 2 [facility] CenterGlucose [Mass/Vol]109 mg/tJMlnp06-808VdoeymvbrUniversity Hospitals Geauga Medical CenterPotassium [Moles/Vol]3.8 mmol/L3.5-5.1FSelect Medical Specialty Hospital - Youngstownodium [Moles/Vol]144 mmol/B311-197FpzhcsvfiUniversity Hospitals Geauga Medical CenterTSH Qn5.026 m[IU]/LHigh0.358-3.740[facility] Medical CenterUrea nitrogen [Mass/Vol]16.0 mg/dL7.0-18.0[facility] Medical CenterUrea nitrogen/Creatinine [Mass ratio]13.4 mg/mgUniversity Hospitals Geauga Medical CenterNo Panel InformationOrdered By: Timbo Abad on 61-50-1893Nygcao3.50 ng/mLLow 8.60-58.90[facility] Methodist Hospitalerum or plasma anion gap determinationOrdered By: Timbo Abad on 32-34-8341Fdaih gap [Moles/Vol]13.9 mmol/LFPremier Health Miami Valley HospitalUS ankle/arm indiceson 01-68-2317EY ankle/arm indicesBrown Memorial Hospital [facility] [address] [place] [address] Ultrasound Report Signed Patient: Max Friedman MR#: [id number] 11 : 1940 Acct:[id number] Age/Sex: 84 / M ADM Date: 05/12/25 Loc: [facility] Room: Type: [facility] Attending Dr: Jaylon Finnegan MD Ordering Provider: Jaylon Finnegan MD Date of Service: 05/12/25 US/US ankle/arm indices: I70.213 - Atherosclerosis of kake arteries of extremiti... Copies to: Jaylon Finnegan [...] Finnegan MD,FACS,FSVS 05/12/2025 11:51 AM Dictation Location: [place] [address] Tech: Pam Sheehan Transcribed By: DANIEL 05/12/25 1151 Dictated By: Jaylon Finnegan MD 05/12/25 1151 Signed By: 05/12/25 1151[facility] Physician GroupUS carotid doppler BIon 98-23-0533RF carotid doppler [facility] [address] [place] [address] Ultrasound Report Signed Patient: Max Friedman MR#: [id number] 11 : 1940 Acct:[id number] Age/Sex: 84 / M ADM Date: 05/12/25 Loc: [facility] Room: Type: [facility] Attending Dr: Jaylon Finnegan MD Ordering Provider: [...] Finnegan MD,FACS,FSVS 05/12/2025 11:52 AM Dictation Location: [place] [address] Tech: Merle Donaldsno Transcribed By: DANIEL 05/12/25 1152 Dictated By: Jaylon Finnegan MD 05/12/25 1151 Signed By: 05/12/25 1152[facility] Physician GroupBasophils Auto (Bld) [#/Vol]on 14-64-9261Gqlnbjelf (Bld) [#/Vol]0.0 10 3/uL0.0-0.1FPremier Health Miami Valley HospitalBasophils/100 WBC Auto (Bld)on 79-51-9731Rhbsnfmpe/100 WBC (Bld)0.5 % 0.2-2.0[facility] Medical CenterCholesterol in LDL Calc [Mass/Vol]on 49-45-9184Ptkabkzximt in LDL [Mass/Vol]33.6 mg/dLUniversity Hospitals Geauga Medical CenterComment on above:<100 mg/dl AOAUDGB622-121 mg/dl NEAR OR ABOVE WQNLXCM424- 159 mg/dl BORDERLINE GODE355-270 mg/dl HIGH>190 mg/dl VERY HIGHCholesterol in VLDL Calc [Mass/Vol]on 04-64-3103Tvoudztawrk in VLDL [Mass/Vol]14.4 mg/dL [facility] Medical CenterEosinophils/100 WBC Auto (Bld)on 03-25-2025 Eosinophils/100 WBC (Bld)7.7 %High0.9-7.0[facility] Erythrocyte distribution width Auto (RBC) [Ratio]on 50-16-1622Weivzjnwbxh distribution width (RBC) [Ratio]14.4 %11.0-15.0[facility] Estimated glomerular filtration rate (GFR) non- Americanon 03-25-2025 GFR/1.73 sq M.predicted among non-blacks MDRD (S/P/Bld) [Vol rate/Area]51 mL/min/{1.73_m2}Low>=60 mL/min/1.73m 2FPremier Health Miami Valley HospitalGlobulin Calc (S) [Mass/Vol]on 07-23-5275Agsmmebt (S) [Mass/Vol]3.3 g/dLUniversity Hospitals Geauga Medical CenterHematocrit Auto (Bld) [Volume fraction]on 03-25-2025 Hematocrit (Bld) [Volume fraction]41.9 %Low42.0-54.0[facility] Medical CenterHemoglobin [Mass/volume] in Bloodon 86-62-1123Qnvcwvdstm (Bld) [Mass/Vol] 13.7 g/dLLow14.0-18.0[facility] Medical CenterLaboratory - Chemistry and Chemistry - challengeon 07-62-4858Qhkefjz [Mass/Vol]3.5 g/dL3.4-5.0[facility] Medical CenterALP [Catalytic activity/Vol]70 U/S47-152PsowxkcndUniversity Hospitals Geauga Medical CenterALT [Catalytic activity/Vol]23 U/B55-30XzemszizrUniversity Hospitals Geauga Medical CenterAST [Catalytic activity/Vol]17 U/P07-40EtwkblgxgUniversity Hospitals Geauga Medical CenterBilirubin [Mass/Vol]0.7 mg/dL0.2-1.0[facility] Calcium [Mass/Vol]9.3 mg/dL8.5-10.1FPremier Health Miami Valley HospitalChloride [Moles/Vol]106 mmol/L47-528WceiwwsosUniversity Hospitals Geauga Medical CenterCholesterol [Mass/Vol]106 mg/dL<=200[facility] CenterCholesterol in HDL [Mass/Vol]58 mg/gF12-50HydlxcirpUniversity Hospitals Geauga Medical CenterComment on above:> or =60 mg/dl - LOW CARDIOVASCULAR RISK<40 mg/dl - HIGH CARDIOVASCULAR RISKCO2 [Moles/Vol]32.9 mmol/LHigh21.0-32.0[facility] Medical CenterCreatinine [Mass/Vol]1.34 mg/dLHigh0.70-1.30[facility] Medical CenterFree T4 [Mass/Vol]0.95 ng/dL0.76-1.46[facility] CenterGFR/1.73 sq M.predicted MDRD (S/P/Bld) [Vol rate/Area]mL/min/{1.73_m2}>=60 mL/min/1.73m 2 [facility] CenterGlucose [Mass/Vol]108 mg/xJTxbr63-191NbzsfxstwUniversity Hospitals Geauga Medical CenterPotassium [Moles/Vol]4.2 mmol/L3.5-5.1FPremier Health Miami Valley HospitalProtein [Mass/Vol]6.8 g/dL6.4-8.2FPremier Health [facility] Sodium [Moles/Vol]144 mmol/L988-741OqqoagueyUniversity Hospitals Geauga Medical CenterTriglyceride [Mass/Vol]72 mg/dL<=150[facility] CenterTS Qn4.515 m[IU]/LHigh 0.358-3.740[facility] Medical CenterUrea nitrogen [Mass/Vol]20.0 mg/dL High7.0-18.0[facility] Medical CenterUrea nitrogen/Creatinine [Mass ratio]14.9 mg/mgUniversity Hospitals Geauga Medical CenterLaboratory - Hematology and Cell countson 92-67-0782Ssycjnvh granulocytes/100 WBC (Bld)0.2 %0.0-0.5FPremier Health Miami Valley HospitalLeukocytes [#/volume] corrected for nucleated erythrocytes in Blood by Automated counon 83-58-9147GOK corrected for nucl RBC Auto (Bld) [#/Vol]5.8 10 3/uL4.0-11.0[facility] Lymphocytes Auto (Bld) [#/Vol]on 05-55-0097Jnaszyddlvl (Bld) [#/Vol]1.5 10 3/uL 1.2-3.8[facility] Medical CenterLymphocytes/100 WBC Auto (Bld)on 09-59-0162Nkzpwrfvldd/100 WBC (Bld)25.3 %20.5-60.0[facility] Medical CenterMCH Auto (RBC) [Entitic mass]on 28-84-1739OTE (RBC) [Entitic mass]30.6 pg 25.9-34.0[facility] Medical CenterMCHC Auto (RBC) [Mass/Vol]on 53-88-2502GXHC (RBC) [Mass/Vol]32.7 g/dL29.9-35.2FPremier Health Miami Valley HospitalMCV Auto (RBC) [Entitic vol]on 30-23-3497NOZ (RBC) [Entitic vol]93.7 fL 80.0-94.0[facility] Medical CenterMonocytes Auto (Bld) [#/Vol]on 71-26-1307Rdrpxpuhj (Bld) [#/Vol]0.5 10 3/uL0.3-0.8[facility] CenterMonocytes/100 WBC Auto (Bld)on 03-93-3614Ugwwmtgus/100 WBC (Bld)9.3 % 1.7-12.0[facility] Medical CenterNeutrophils Auto (Bld) [#/Vol]on 90-08-5448Urtrmsjtnga (Bld) [#/Vol]3.3 10 3/uL1.4-6.5FPremier Health Miami Valley HospitalNeutrophils/100 WBC Auto (Bld)on 32-55-7641Xxxqwvlyrlt/100 WBC (Bld)57.0 % 43.0-75.0[facility] Medical CenterNo Panel Informationon 03-25-2025 Eosinophils # (Auto)0.5 10 3/uL0.0-0.7FPremier Health Miami Valley HospitalImmature Granulocyte # (Auto)0.01 10 3/uL0.00-0.03[facility] Platelet mean volume Auto (Bld) [Entitic vol]on 44-01-4456Pvamqwzt mean volume (Bld) [Entitic vol]11.5 fL9.5-13.5FPremier Health Miami Valley HospitalPlatelets Auto (Bld) [#/Vol]on 87-73-6871Vloeplyzb (Bld) [#/Vol]197 10 3/lA375-657 [facility] Medical CenterRBC Auto (Bld) [#/Vol]on 13-13-2430MLU (Bld) [#/Vol]4.47 10 6/uLLow4.70-6.10[facility] Hospitalerum or plasma albumin/globulin mass ratioon 11-95-3893Igbamfj/Globulin [Mass ratio]1.1 {ratio} [facility] Hospitalerum or plasma anion gap determinationon 33-81-6699Nvvdm gap [Moles/Vol]9.3 mmol/LFSelect Medical Specialty Hospital - Youngstownerum or plasma total cholesterol/high density lipoprotein (HDL) cholesterol mass rat on 58-91-2909Agecdtsiryn.total/Cholesterol in HDL [Mass ratio]1.8 {ratio} [facility] Medical CenterComment on above:3.3 - 4.4 LOW RISK4.4 - 7.1 AVERAGE RISK7.1 - 11.0 MODERATE RISK>11.0 HIGH RISKUS art pvr/post Yadi 03-70-8328YA art pvr/post [facility] [place] [address] Ultrasound Report Signed with Addenda Patient: Max Friedman MR#: [id number] 11 : 1940 Acct:[id number] Age/Sex: 84 / M ADM Date: 12/07/24 Loc: Room: Type: [facility] Attending Dr: Niya Baker [employer] 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 Copies to: Niya Baker APRN ADDENDUM 1 The right lower extremity exhibited severe disease and critical limb ischemia with ambulation. The right lower extremity CHING dropped to 0.32 during the exercise study. This is considered severe ischemia. Impression dictated by: Jaylon Finnegan MD12/15/2024 5:07 PM Dictation Location: [place] [address] Addendum Dictated By: Jaylon Finnegan MD Addendum [...] Jaylon Finnegan MD12/08/2024 11:26 AM Dictation Location: [place] [address] Tech: Sugey Diaz Transcribed By: DANIEL 12/08/24 1126 Dictated By: Jaylon Finnegan MD 12/08/24 1122 Signed By: 12/08/24 [facility] Physician GroupUS UNI ankle/arm indices 37-78-7564VN UNI ankle/arm indicesUNIVERSITY [facility]ALS [facility] Main [place] [address] [place] [address] Ultrasound Report Signed Patient: Max Friedman MR#: [id number] 11 : 1940 Acct:[id number] Age/Sex: 84 / M ADM Date: 10/18/24 Loc: Room: Type: [facility] Attending Dr: Jaylon Finnegan MD Ordering [...] Ricky Stephens M.D.10/19/2024 10:37 AM Dictation Location: [place] [address] Tech: Pam Sheehan Transcribed By: DANIEL 10/19/24 1037 Dictated By: Ricky Stephens MD 10/19/24 1035 Signed By: 10/19/24 1037[facility] 81St Medical GroupBlood Urea Nitrogenon 10-04-2024 Urea nitrogen [Mass/Vol]21 mg/dLNormalWeiser Memorial Hospital Physician 81St Medical GroupComment on above:Performed By: #### CREAT, BUN #### [place] [address] USACreatinineon 76-88-3166Mwjyhqiyoh [Mass/Vol]1.40 mg/dLHigh 0.70-1.30[facility] Physician GroupComment on above:Performed By: #### CREAT, BUN #### [place] [address] USACreatinine Clr Calc Chobrccy47.56NoGranville Medical Center Physician 81St Medical GroupComment on above:Result Comment: PERFORMED BY: [place] [address] PATHOLOGIST RN OR LVN DK JONES M.D.Performed By: #### CREAT, BUN #### [place] [address] USAEstimated GFR50.182 mL/MinNoGranville Medical Center Physician 81St Medical GroupComment on above:Performed By: #### CREAT, BUN #### [place] [address] USACreatinine [Mass/volume] in Serum or PlasmaOrdered By: Jaylon Finnegan on 72-23-3696Ouiglvfims [Mass/Vol]Creatinine [Mass/volume] in Serum or PlasmaHigh0.70-1.30[facility] CenterNo Panel InformationOrdered By: Jaylon Finnegan on 62-17-9070Znkuwmbmc GFR (CKD-EPI) 50.182 mL/MinUniversity Hospitals Geauga Medical CenterPharmacy Creatinine Clearance (Chem45.56[facility] Medical CenterUS UNI ankle/arm indiceson 10-04-2024 US UNI ankle/arm indicesUNIVERSITY HOSPITALS CONNE[facility] [place] [address] Ultrasound Report Signed Patient: Max Friedman MR#: [id number] 11 : 1940 Acct:[id number] Age/Sex: 84 / M ADM Date: 10/04/24 Loc: Room: Type: [facility] Attending Dr: Jaylon Finnegan MD Ordering [...] Jaylon Finnegan MD10/04/2024 3:03 PM Dictation Location: [place] [address] Tech: Mercedes Bella Transcribed By: DANIEL 10/04/24 1503 Dictated By: Jaylon Finnegan MD 10/04/24 1502 Signed By: 10/04/24 1503[facility] Physician GroupUrea nitrogen [Mass/volume] in Serum or PlasmaOrdered By: Jaylon Finnegan on 40-53-2897Fkss nitrogen [Mass/Vol]Urea nitrogen [Mass/volume] in Serum or Plasma06-03[facility] Medical CenterUrology Office/Clinic Noteon 74-69-3301Ibsiury Office/Clinic Note Urology Office/Clinic Note Chief Complaint [...] LP. No L stones. S/p R ESWL 10/22/20. KUB 06/22/21 - Multiple small R stones [...] [facility] [address], [place] [phone] Additional Instructions: 1 yr w/ KUB Patient Education Kidney Stones, Uefz-jn-Hhxn Babita Alejo, personally scribed for Dr. Hills on 09/20/2024 12:14:24. . Documentation recorded by the scribe, Babita Andrade, accurately reflects the services(s) I performed and decisions made by me. Authenticated by Dr. Hills on 09/20/2024 12:15:52. Problem List/Past Medical History Ongoing BPH with urinary obstruction CAD (coronary artery disease) Former smoker GERD (gastroesophageal reflux disease) Hx of alf use of blood thinners Impotence Kidney stone [...] 0.5 tab(s), Oral, BID (more content not included)...[facility] Hospital - AkronComment on above:Result Comment: Electronically Signed By: Salome HILLS MD\.br\Date and Time Signed: 09/20/24 12:15 EST\.br\Electronically Co-Signed By: Babita Andrade.br\Date and Time Co-Signed: 09/20/24 12:14 ESTEstimated glomerular filtration rate (GFR) non- Americanon 54-21-0797MYX/1.73 sq M.predicted among non-blacks MDRD (S/P/Bld) [Vol rate/Area]49 mL/min/{1.73_m2}Low>=60[facility] CenterLaboratory - Chemistry and Chemistry - challengeon 38-31-7306Kohkqum [Mass/Vol]9.2 mg/dL8.5-10.1FPremier Health Miami Valley HospitalChloride [Moles/Vol] 99 mmol/N05-474GkpzscnkgUniversity Hospitals Geauga Medical CenterCO2 [Moles/Vol]31.3 mmol/L 21.0-32.0[facility] CenterCreatinine [Mass/Vol]1.39 mg/dLHigh 0.70-1.30[facility] CenterGFR/1.73 sq M.predicted MDRD (S/P/Bld) [Vol rate/Area]59 mL/min/{1.73_m2}Low>=60[facility] Glucose [Mass/Vol]94 mg/wI04-164UujkdsntkUniversity Hospitals Geauga Medical CenterNatriuretic peptide B (Bld) [Mass/Vol]98.0 pg/mL<=1800.0[facility] Potassium [Moles/Vol]3.0 mmol/LLow3.5-5.1FSelect Medical Specialty Hospital - Youngstownodium [Moles/Vol]140 mmol/J170-200NzgbkwoqmUniversity Hospitals Geauga Medical CenterUrea nitrogen [Mass/Vol]30.0 mg/dLHigh7.0-18.0[facility] CenterUrea nitrogen/Creatinine [Mass ratio]21.6 mg/mgOhioHealth Riverside Methodist Hospitalerum or plasma anion gap determinationon 62-40-7248Aozcf gap [Moles/Vol]12.7 mmol/L [facility] CenterLaboratory - Chemistry and Chemistry - challengeon 38-32-0616Lpyh T4 [Mass/Vol]0.79 ng/dL0.76-1.46[facility] Medical CenterTSH Qn5.269 m[IU]/LHigh0.358-3.740[facility] CenterNo Panel Informationon 72-88-9859Amxze Cpjkvpenprczfuga85 ng/mP08-078 [facility] CenterComment on above:Performed at: - Lab[address] [id number] Director: Nadir Chavez PhD, Phone: [phone] Auto (Bld) [#/Vol]on 98-64-7898Khrldfrdv (Bld) [#/Vol]0.0 10 3/uL0.0-0.1FPremier Health Miami Valley HospitalBasophils/100 WBC Auto (Bld)on 61-98-6595Vfreoicuk/100 WBC (Bld)0.6 %0.2-2.0[facility] CenterCholesterol in LDL Calc [Mass/Vol]on 96-86-4601Icfnyvlwpyc in LDL [Mass/Vol]67.2 mg/dLUniversity Hospitals Geauga Medical CenterComment on above:<100 mg/dl FJUZZXH429-000 mg/dl NEAR OR ABOVE ACFRHRD906-117 mg/dl BORDERLINE XOWA074-330 mg/dl HIGH>190 mg/dl VERY HIGHCholesterol in VLDL Calc [Mass/Vol]on 04-07-2024 Cholesterol in VLDL [Mass/Vol]23.8 mg/dLUniversity Hospitals Geauga Medical Center Eosinophils/100 WBC Auto (Bld)on 03-04-1997Ywnavaiwzrf/100 WBC (Bld)9.8 %High 0.9-7.0[facility] Medical CenterErythrocyte distribution width Auto (RBC) [Ratio]on 27-25-8738Fukjhdboica distribution width (RBC) [Ratio]14.0 % 11.0-15.0[facility] Medical CenterEstimated glomerular filtration rate (GFR) non- Americanon 63-18-6706CDD/1.73 sq M.predicted among non-blacks MDRD (S/P/Bld) [Vol rate/Area]55 mL/min/{1.73_m2}Low>=60[facility] Medical CenterGlobulin Calc (S) [Mass/Vol]on 08-58-6958Xdnerhgw (S) [Mass/Vol] 3.8 g/dLUniversity Hospitals Geauga Medical CenterHematocrit Auto (Bld) [Volume fraction] on 35-98-5367Zimvesqggz (Bld) [Volume fraction]44.7 %42.0-54.0[facility] Medical CenterHemoglobin [Mass/volume] in Bloodon 77-81-5598Jbvnnvwukk (Bld) [Mass/Vol]14.3 g/dL14.0-18.0[facility] CenterLaboratory - Chemistry and Chemistry - challengeon 13-89-6805Ysfyidj [Mass/Vol]3.4 g/dL 3.4-5.0[facility] Medical CenterALP [Catalytic activity/Vol]67 U/L46-116 [facility] CenterALT [Catalytic activity/Vol]22 U/L16-63 [facility] Medical CenterAST [Catalytic activity/Vol]20 U/L15-37 [facility] Medical CenterBilirubin [Mass/Vol]1.0 mg/dL0.2-1.0[facility] Medical CenterCalcium [Mass/Vol]8.9 mg/dL8.5-10.1FPremier Health Miami Valley HospitalChloride [Moles/Vol]103 mmol/A82-119XmztdsuleUniversity Hospitals Geauga Medical CenterCholesterol [Mass/Vol]150 mg/dL<=200[facility] Cholesterol in HDL [Mass/Vol]59 mg/gD06-44BixlmroaxUniversity Hospitals Geauga Medical Center Comment on above:> or =60 mg/dl - LOW CARDIOVASCULAR RISK<40 mg/dl - HIGH CARDIOVASCULAR RISKCO2 [Moles/Vol]29.8 mmol/L21.0-32.0[facility] Medical CenterCreatinine [Mass/Vol]1.26 mg/dL0.70-1.30[facility] GFR/1.73 sq M.predicted MDRD (S/P/Bld) [Vol rate/Area]mL/min/{1.73_m2}>=60 [facility] Medical CenterGlucose [Mass/Vol]109 mg/qYPkke78-502JkdavkpicUniversity Hospitals Geauga Medical CenterNatriuretic peptide B (Bld) [Mass/Vol]104.0 pg/mL<=1800.0 [facility] Medical CenterPotassium [Moles/Vol]3.4 mmol/LLow3.5-5.1 [facility] CenterProtein [Mass/Vol]7.2 g/dL6.4-8.2FSelect Medical Specialty Hospital - Youngstownodium [Moles/Vol]140 mmol/F310-377OkipnrrhmUniversity Hospitals Geauga Medical CenterTriglyceride [Mass/Vol]119 mg/dL<=150[facility] Medical CenterTSH Qn8.383 m[IU]/LHigh0.358-3.740[facility] Medical CenterUrea nitrogen [Mass/Vol]21.0 mg/dLHigh7.0-18.0[facility] CenterUrea nitrogen/Creatinine [Mass ratio]16.7 mg/mgUniversity Hospitals Geauga Medical Center Laboratory - Hematology and Cell countson 97-14-4524Kyvpdoaf granulocytes/100 WBC (Bld)0.4 %0.0-0.5FPremier Health Miami Valley HospitalLeukocytes [#/volume] corrected for nucleated erythrocytes in Blood by Automated counon 86-14-6915SIO corrected for nucl RBC Auto (Bld) [#/Vol]5.2 10 3/uL4.0-11.0[facility] Medical CenterLymphocytes Auto (Bld) [#/Vol]on 82-53-7976Plnjnbxgkyq (Bld) [#/Vol]1.5 10 3/uL1.2-3.8[facility] Medical CenterLymphocytes/100 WBC Auto (Bld)on 79-40-5700Yxeomllocuh/100 WBC (Bld)28.6 %20.5-60.0[facility] Medical CenterH Auto (RBC) [Entitic mass]on 26-56-5818DSP (RBC) [Entitic mass]30.2 pg25.9-34.0[facility] Medical CenterMCHC Auto (RBC) [Mass/Vol]on 73-86-1354LWEJ (RBC) [Mass/Vol]32.0 g/dL29.9-35.2FPremier Health Miami Valley HospitalMCV Auto (RBC) [Entitic vol]on 44-68-6014RSV (RBC) [Entitic vol] 94.5 vPFrvc48.0-94.0[facility] Medical CenterMonocytes Auto (Bld) [#/Vol]on 19-35-7156Fvxclkvul (Bld) [#/Vol]0.6 10 3/uL0.3-0.8[facility] Medical CenterMonocytes/100 WBC Auto (Bld)on 08-81-4668Hkzshodub/100 WBC (Bld) 11.7 %1.7-12.0[facility] Medical CenterNeutrophils Auto (Bld) [#/Vol]on 49-38-2717Nqotrsfnfci (Bld) [#/Vol]2.6 10 3/uL1.4-6.5FPremier Health Miami Valley HospitalNeutrophils/100 WBC Auto (Bld)on 25-09-3609Dfstdyujxzg/100 WBC (Bld)48.9 % 43.0-75.0[facility] CenterNo Panel Informationon 04-07-2024 Eosinophils # (Auto)0.5 10 3/uL0.0-0.7FPremier Health Miami Valley HospitalImmature Granulocyte # (Auto)0.02 10 3/uL0.00-0.03[facility] Platelet mean volume Auto (Bld) [Entitic vol]on 51-07-1526Exukbslg mean volume (Bld) [Entitic vol]11.2 fL9.5-13.5FPremier Health Miami Valley HospitalPlatelets Auto (Bld) [#/Vol]on 81-66-3540Lagfirpba (Bld) [#/Vol]196 10 3/fE739-318 [facility] Medical CenterRBC Auto (Bld) [#/Vol]on 20-72-5501MEB (Bld) [#/Vol]4.73 10 6/uL4.70-6.10[facility] Hospitalerum or plasma albumin/globulin mass ratioon 60-38-0059Eaydxpi/Globulin [Mass ratio]0.9 {ratio} [facility] Hospitalerum or plasma anion gap determinationon 27-87-7519Gtysr gap [Moles/Vol]10.6 mmol/LFSelect Medical Specialty Hospital - Youngstownerum or plasma total cholesterol/high density lipoprotein (HDL) cholesterol mass rat on 95-93-2819Crrolaoozte.total/Cholesterol in HDL [Mass ratio]2.5 {ratio} [facility] CenterComment on above:3.3 - 4.4 LOW RISK4.4 - 7.1 AVERAGE RISK7.1 - 11.0 MODERATE RISK>11.0 HIGH SRHA62bq *You can take lasix as needed. Take if you develop worsening shortness of breath, abdominal bloating, leg swelling, or weight gain of 2-3lbs in a day or 5lbs in a week. Can take for 3 days or until weight or symptoms improve. *When you take lasix, take potassium with it. *Follow-up with vascular in [place] for your leg weakness and painNormal [facility] Rutan HospitalOffice Visiton 42-35-7650Czmigw-up visit [id number] Max Friedman 1940 M Date Provider Department Center 01/15/2024 [facility]EW[facility] Family History Problem Relation Age of Onset No Known Problems Mother No Known Problems Father Family Status - Relation Status Age at Mother Father Level of Service:18081 MT OFFICE/OUTPATIENT ESTABLISHED MOD MDM 30 MIN Reason for Visit and Comments: Coronary Artery Disease [187] Congestive Heart Failure [127] Hypertension [329644] Hyperlipidemia [182]NormalUnProMedica Toledo Hospital36on Regarding labs from 12/26/2023: Tita Rivera, SANG Franco MA Please let him know his labs show his kidney function is stable. Continue current meds. Thanks LM on patient's VM.NormalUnProMedica Toledo HospitalEstimated glomerular filtration rate (GFR) non- Americanon [id number]/1.73 sq M.predicted among non-blacks MDRD (S/P/Bld) [Vol rate/Area]58 mL/min/{1.73_m2}>=60[facility] CenterLaboratory - Chemistry and Chemistry - challengeon [id number] [Mass/Vol]9.3 mg/dL8.5-10.1FPremier Health Miami [facility] Hospital Chloride [Moles/Vol]101 mmol/A45-532JljhmhidhUniversity Hospitals Geauga Medical CenterCO2 [Moles/Vol]28.4 mmol/L21.0-32.0[facility] CenterCreatinine [Mass/Vol]1.21 mg/dL0.70-1.30[facility] CenterGFR/1.73 sq M.predicted MDRD (S/P/Bld) [Vol rate/Area]mL/min/{1.73_m2}>=60[facility] CenterGlucose [Mass/Vol]117 mg/cH08-433YdijzsscfUniversity Hospitals Geauga Medical Center Potassium [Moles/Vol]3.9 mmol/L3.5-5.1FSelect Medical Specialty Hospital - Youngstownodium [Moles/Vol]138 mmol/R421-637MzgsrzquiUniversity Hospitals Geauga Medical CenterUrea nitrogen [Mass/Vol]19.0 mg/dL7.0-18.0[facility]auga Medical CenterUrea nitrogen/Creatinine [Mass ratio]15.7 mg/mgOhioHealth Riverside Methodist Hospitalerum or plasma anion gap determinationon 87-67-5237Rzwad gap [Moles/Vol]12.5 mmol/L [facility]37on *Start taking lasix 40mg daily along with potassium supplements. *Have labs done around 12/26/2023. *Monitor your weight daily, first thing in the morning after you use the bathroom and before you eat breakfast. *Try to not drink more than 2000ml of fluids a day *Limit sodium/salt intakeNormalUniversity Suburban Community Hospital & Brentwood HospitalOffice Visiton [id number]-up [id number] Max Friedman 1940 M Date Provider Department Center 12/17/2023 TITA STEWART [facility] Family History Problem Relation Age of Onset No Known Problems Mother No Known Problems Father Family Status - Relation Status Age at Mother Father Level of Service:59161 MT OFFICE/OUTPATIENT ESTABLISHED MOD MDM [address] HospitalLaboratory - Microbiology and Antimicrobial susceptibilityOrdered By: Aury Ann on 04-12-2023S. pyogenes Ag IA Ql (Unsp spec)[facility]No Panel InformationOrdered By: Aury Ann on 20-88-4210Rgr BFZanesville City HospitalCBC AUTO DIFFon 13-85-1648CJJV #0.0 103/ulNormal0.0-0.1The [facility] CenterComment on above:Performed By: #### CBC #### [facility] [address] [address] [address] Giacomo Pinedaphils/100 WBC (Bld)0.5 %Normal0.2-2.0The [facility] Comment on above:Performed By: #### CBC #### [facility] [address] [address] [address] Giacomo Foster #0.4 103/ulNormal0.0-0.7The [facility] CenterComment on above: Performed By: #### CBC #### [facility] [address] [place] [address] Dr. Giacomo Huntosinophils/100 WBC (Bld)7.0 %Normal0.9-7.0The [facility] Comment on above:Performed By: #### CBC #### [facility] [address] [place] [address] Dr. Giacomo Huntrythrocyte distribution width (RBC) [Ratio]14.6 %Xhhbos67.0-15.0 The [facility] CenterComment on above:Performed By: #### CBC #### [facility] [address] [place] [address] Dr. Giacomo MaceHematocrit (Bld) [Volume fraction]46.9 %Gramjn15.0-54.0The [facility] CenterComment on above:Performed By: #### CBC #### [facility] [address] [place] [address] Dr. Giacomo MaceHemoglobin (Bld) [Mass/Vol]15.1 g/oFAohukw32.0-18.0The [facility] CenterComment on above:Performed By: #### CBC #### [facility] [address] [place] [address] Dr. Giacomo Briggs #0.02 10e3/ulNormal0.00-0.03The [facility] CenterComment on above:Performed By: #### CBC #### [facility] [address] [place] [address] Dr. Giacomo Briggs %0.4 %Normal0.0-0.5The [facility] CenterComment on above: Performed By: #### CBC #### [facility] [address] [place] [address] Dr. Giacomo Sommers #1.4 103/ulNormal1.2-3.8The [facility] CenterComment on above:Performed By: #### CBC #### [facility] [address] [place] [address] Dr. Yilan ChangLymphocytes/100 WBC (Bld)25.3 %Tbolby19.5-60.0The [facility] CenterComment on above:Performed By: #### CBC #### [facility] [address] [place] [address] Dr. Giacomo MontalvoUAL DIFF REQNONormalThe [facility] CenterComment on above: Performed By: #### CBC #### [facility] [address] [place] [address] Dr. Giacomo Summers (RBC) [Entitic mass]29.6 thWvbvex88.9-34.0The [facility] CenterComment on above:Performed By: #### CBC #### [facility] [address] [place] [address] Dr. Giacomo Summers (RBC) [Mass/Vol]32.2 g/oDJcbeda54.9-35.2The [facility] CenterComment on above:Performed By: #### CBC #### [facility] [address] [place] [address] Dr. Giacomo Summers (RBC) [Entitic vol]92.0 kLImdqlh18.0-94.0The [facility] CenterComment on above:Performed By: #### CBC #### [facility] [address] [place] [address] Dr. Giacomo Rodriguez #0.6 103/ulNormal0.3-0.8The [facility] CenterComment on above:Performed By: #### CBC #### [facility] [address] [place] [address] Dr. Giacomo Rootocytes/100 WBC (Bld)10.4 %Normal1.7-12.0The [facility] Comment on above:Performed By: #### CBC #### [facility] [address] [place] [address] Dr. Giacomo Johansen #3.2 103/ulNormal1.4-6.5The [facility] CenterComment on above:Performed By: #### CBC #### [facility] [address] [place] [address] Dr. Giacomo Coleophils/100 WBC (Bld)56.4 %Ihsofv07.0-75.0The [facility] CenterComment on above:Performed By: #### CBC #### [facility] [address] [place] [address] Dr. Giacomo Restrepolet mean volume (Bld) [Entitic vol]10.5 fLNormal9.5-13.5The [facility] CenterComment on above:Performed By: #### CBC #### [facility] [address] [place] [address] Dr. Giacomo MacePLT227 103/joKgvlcz773-572Fdf [facility] CenterComrehabilitation institute of [place] on above: Performed By: #### CBC #### [facility] [address] [place] [address] Dr. Giacomo MaceRBC5.10 106/ulNormal4.70-6.10The [facility] CenterComment on above:Performed By: #### CBC #### [facility] [address] [place] [address] Dr. Giacomo MaceWBC5.7 103/ulNormal4.0-11.0The [facility] CenterComrehabilitation institute of [place] on above: Performed By: #### CBC #### [facility] [address] [place] [address] Dr. Giacomo NguyenID PROFILEon 78-44-7132KUQM-HDL RATIO NORMSEE [facility] HospitalComrehabilitation [facility] [place] on above:Result Comment: 3.3 - 4.4 LOW RISK 4.4 - 7.1 AVERAGE RISK 7.1 - 11.0 MODERATE RISK >11.0 HIGH RISKPerformed By: #### BMP, LIPID #### [facility] [address] [place] [address] Dr. Giacomo MaceCholesterol [Mass/Vol]219 mg/dLCritically high<=200The [facility] on above:Performed By: #### BMP, LIPID #### [facility] [address] [place] [address] Dr. Giacomo MaceCholesterol in HDL [Mass/Vol]61 mg/dLCritically flgr93-56TsuGreen Cross HospitalComment on above:Performed By: #### BMP, LIPID #### [facility] [address] [address] [address] Giacomo Montalvoesterol in LDL [Mass/Vol]136.4 mg/dLMercy Health St. Elizabeth Boardman HospitalComment on above:Performed By: #### BMP, LIPID #### [facility] [address] [address] [address] Giacomo Marin.total/Cholesterol in HDL [Mass ratio]3.6 {ratio} NormalThe [facility] Medical CenterComment on above:Performed By: #### BMP, LIPID #### [facility] [address] [place] [address] Dr. Giacomo Strauss NORMAL> or = 60 mg/dl - LOW CARDIOVASCULAR RISK <40 mg/dl - HIGH CARDIOVASCULAR RISKNoVeterans Health AdministrationComment on above:Performed By: #### BMP, LIPID #### [facility] [address] [address] [address] Giacomo Morton CALC NORMALSEE BELOWNoVeterans Health AdministrationComment on above:Result Comment: <100 mg/dl OPTIMAL 100 - 129 mg/dl NEAR OR ABOVE OPTIMAL 130 - 159 mg/dl BORDERLINE HIGH 160 - 189 mg/dl HIGH >190 mg/dl VERY HIGH Performed By: #### BMP, LIPID #### [facility] [address] [place] [address] Dr. Giacomo MaceTriglyceride [Mass/Vol]108 mg/dLNormal<=150The [facility] Comment on above:Performed By: #### BMP, LIPID #### [facility] [address] [place] [address] Dr. Giacomo RealLDL CALC21.6 mg/dLNoVeterans Health AdministrationComment on above: Performed By: #### BMP, LIPID #### [facility] [address] [place] [address] Dr. Giacomo MacePROF CHEM 8 (BAS METB)on 17-84-0526Tiiwt gap [Moles/Vol]9.6 mmol/LNormalGreen Cross HospitalComment on above:Performed By: #### BMP, LIPID #### [facility] [address] [address] [address] Giacomo MaceCalcium [Mass/Vol]9.3 mg/dLNormal8.5-10.1The [facility] Comment on above:Performed By: #### BMP, LIPID #### [facility] [address] [address] [address] Giacomo MaceChloride [Moles/Vol]104 mmol/ZQbeamw49-895Lli [facility] Comment on above:Performed By: #### BMP, LIPID #### [facility] [address] [address] [address] Giacomo MaceCO2 [Moles/Vol]27.8 mmol/YXihxtj81.0-32.0The [facility] Comment on above:Performed By: #### BMP, LIPID #### [facility] [address] [address] [address] Giacomo MaceCreatinine [Mass/Vol]1.08 mg/dLNormal0.70-1.30The [facility] CenterComment on above:Performed By: #### BMP, LIPID #### [facility] [address] [address] [address] Giacomo HuntGFR-AF AZERBAIJANI>60Normal>=60The [facility] CenterComment on above:Performed By: #### BMP, LIPID #### [facility] [address] [address] [address] Giacomo HuntGFR-NON AF AZERBAIJANI>60Normal>=60The [facility] CenterComment on above:Performed By: #### BMP, LIPID #### [facility] [address] [address] [address] Giacomo MaceGlucose [Mass/Vol]111 mg/dLCritically yami13-300Ypm [facility] CenterComment on above:Performed By: #### BMP, LIPID #### [facility] [address] [place] [address] Dr. Giacomo MacePotassium [Moles/Vol]4.4 mmol/LNormal3.5-5.1The [facility] Comment on above:Performed By: #### BMP, LIPID #### [facility] [address] [address] [address] Giacomo MaceSodium [Moles/Vol]137 mmol/UJnjbzz182-519AfqGreen Cross Hospital Comment on above:Performed By: #### BMP, LIPID #### [facility] [address] [address] [address] Giacomo Zuniga nitrogen [Mass/Vol]27.0 mg/dLCritically high7.0-18.0Green Cross HospitalComment on above:Performed By: #### BMP, LIPID #### [facility] [address] [address] [address] Giaocmo Zuniga nitrogen/Creatinine [Mass ratio]25.0 mg/mgNormalThLake County Memorial Hospital - WestComment on above:Performed By: #### BMP, LIPID #### [facility] [address] [address] [address] Giacomo HuntCHOCARDIRia M/2D COMPLETEon [id number] M/2D COMPLETE Patient: MAX FRIEDMAN Exam Date: 07/09/2022 : 1940 Gender:M Ordering : TITA RIVERA [facility] Admission #: [id number] Family : DR TIMBO ABAD D.O. Order #: [id number] CLICK HERE TO VIEW EXAM ECHOCARDIOGRAM REPORT [...] by: Ilene Davis M.D. on 07/10/2022 at 14:46NormOhioHealth Doctors HospitalCPKon [id number] [Catalytic activity/Vol]96 U/ORqnmyi17-455Awj [facility] CenterComment on above:Performed By: #### CRP, CK #### [facility] [address] [place] [address] [address] [address] Giacomo Cornelius 25-33-8306RYC [Mass/Vol]mg/LNormal<=1.0The [facility] CenterComment on above:Performed By: #### CRP, CK #### [facility] [address] [address] [address] Giacomo HuntLECTROLYTESon 11-53-2109Bclyl gap [Moles/Vol]11.8 mmol/LNormal The [facility] CenterComment on above:Performed By: #### ELEC #### [facility] [address] [place] [address] Dr. Giacomo MaceChloride [Moles/Vol]104 mmol/AAqpapg65-475CqrGreen Cross Hospital Comment on above:Performed By: #### ELEC #### [facility] [address] [place] [address] Dr. Giacomo MaceCO2 [Moles/Vol]27.5 mmol/FYiiayk15.0-32.0[facility] Comment on above:Performed By: #### ELEC #### [facility] [address] [place] [address] Dr. Giacomo MacePotassium [Moles/Vol]4.3 mmol/LNormal3.5-5.1[facility] Comment on above:Performed By: #### ELEC #### [facility] [address] [place] [address] Dr. Giacomo MaceSodium [Moles/Vol]139 mmol/CWcktji118-128Lyp [facility] Comment on above:Performed By: #### ELEC #### [facility] [address] [place] [address] Dr. Giacomo MaceXR KUB 1 VIEWon 92-29-0211PJ KUB 1 VIEWEXAMINATION: XR KUB 1 VIEW [...] Electronically authenticated by: IVY DOMINGUEZ Date: 2022-04-18 08:04[facility] Vital Signs Date TimeVital SignValuePerforming VheekaebpTiwkuvej49-84-1100 10:51-0400Body hdsumd408.8 cmBenjamin Ball DO Work Phone: [phone])[address] [place], [place] 6104210-09-2025 10:51-0400 Body mass index (BMI) [Ratio]26.5 kg/a8Ynnmwcrm Ball DO Work Phone: 1(419)[address] [place], [place] 6104210-09-2025 10:51-0400 Body rrdihexctad74.8 [degF]Timbo Ball DO Work Phone: [phone])[address] [place], [place] 6104210-09-2025 10:51-0400 Body .91 kgBenjamin Ball DO Work Phone: [phone])[address] [place], [place] 6104210-09-2025 10:51-0400 Diastolic blood anwtoioo14 mm[Hg]Timbo Ball DO Work Phone: 1419)[address] [place], [place] 6104210-09-2025 10:51-0400 Heart rate67 /minBenjamin Ball DO Work Phone: 1(419)[address] [place], [place] 6104210-09-2025 10:51-0400 Respiratory rate16 /minBenjamin Ball DO Work Phone: [phone])[address] [place], [place] 6104210-09-2025 10:51-0400 SaO2% (BldA) [Mass fraction]97 %Timbo Ball DO Work Phone: [phone])[address] [place], [place] 6104210-09-2025 10:51-0400 Systolic blood xlmfucsa791 mm[Hg]Timbo Ball DO Work Phone: 1(419)[address] [place], [place] 6104209-19-2025 10:06-0400 Body laiedn743.8 cmBenjamin Ball DO Work Phone: [phone])[address] [place], [place] 6104209-19-2025 10:06-0400 Body mass index (BMI) [Ratio]27.4 kg/u6Egtzjcke Ball DO Work Phone: 1419)[address] [place], [place] 6104209-19-2025 10:06-0400 Body sazrqk40.8 kgBenjamin Ball DO Work Phone: 1419)[address] [place], [place] 6104209-19-2025 10:06-0400 Diastolic blood djcifqfb88 mm[Hg]Timbo Ball DO Work Phone: [phone] [place], [place] 6610209-19-2025 10:06-0400 Heart rate72 /minBenjamin Ball DO Work Phone: [address] [place], [place] 6104209-19-2025 10:06-0400 Respiratory rate12 /minBenjamin Ball DO Work Phone: [phone])[address] [place], [place] 6104209-19-2025 10:06-0400 Systolic blood ivfxuyeq174 mm[Hg]Timbo Ball DO Work Phone: [address] [place], [place] 6104207-03-2025 11:18-0400 Diastolic blood nwnuckse75 mm[Hg]Timbo Ball DO Work Phone: [address] [place], [place] 6104207-03-2025 11:18-0400 Systolic blood ypzfgjge87 mm[Hg]Timbo Ball DO Work Phone: 1(398)[address] [place], [place] 6104207-03-2025 11:07-0400 Body .8 cmBenjamin Ball DO Work Phone: 1(640)[address] [place], [place] 6104207-03-2025 11:07-0400 Body mass index (BMI) [Ratio]27.5 kg/r8Rgkdxzzx Ball DO Work Phone: 1(061)[address] [place], [place] 6104207-03-2025 11:07-0400 Body jgzikelxauf40.1 [degF]Timbo Ball DO Work Phone: 1(247)[address] [place], [place] 6104207-03-2025 11:07-0400 Body uarriu13.08 kgBenjamin Ball DO Work Phone: 1(047)[address] [place], [place] 6104207-03-2025 11:07-0400 Heart rate51 /minBenjamin Ball DO Work Phone: 1(123)[address] [place], [place] 6104207-03-2025 11:07-0400 SaO2% (BldA) [Mass fraction]99 %Timbo Ball DO Work Phone: 1(555)[address] [place], [place] 6104205-09-2025 10:15-0400 Body .8 cmBenjamin Ball DO Work Phone: 1419)[address] [place], [place] 6104205-09-2025 10:15-0400 Body mass index (BMI) [Ratio]27.6 kg/i5Cornvsmz Ball DO Work Phone: 1(419)[address] [place], [place] 6104205-09-2025 10:15-0400 Body .14 kgBenjamin Ball DO Work Phone: 1(419)[address] [place], [place] 6104205-09-2025 10:15-0400 Diastolic blood egexqzis74 mm[Hg]Timbo Ball DO Work Phone: 1(419)[address] [place], [place] 6104205-09-2025 10:15-0400 Heart rate76 /minBenjamin Ball DO Work Phone: 1(419)[address] [place], [place] 6104205-09-2025 10:15-0400 Respiratory rate12 /minBenjamin Ball DO Work Phone: 1(419)[address] [place], [place] 6104205-09-2025 10:15-0400 Systolic blood bqlcwivd468 mm[Hg]Timbo Ball DO Work Phone: 1(419)[address] [place], [place] 6104202-19-2025 10:21-0500 Body bgxnec285.8 cmBenjamin Ball DO Work Phone: 1(419)[address] [place], [place] 6104202-19-2025 10:21-0500 Body mass index (BMI) [Ratio]27.2 kg/c0Pixinhgl Ball DO Work Phone: 1(419)[address] [place], [place] 6104202-19-2025 10:21-0500 Body eysgxbzbisc73.1 [degF]Timbo Ball DO Work Phone: 1(419)[address] [place], [place] 6104202-19-2025 10:21-0500 Body .18 kgBenjamin Ball DO Work Phone: 1(419)[address] [place], [place] 6104202-19-2025 10:21-0500 Diastolic blood zeypbgle18 mm[Hg]Timbo Ball DO Work Phone: 1(419)[address] [place], [place] 6104202-19-2025 10:21-0500 Heart rate47 /minBenjamin Ball DO Work Phone: 1(419)[address] [place], [place] 6104202-19-2025 10:21-0500 SaO2% (BldA) [Mass fraction]96 %Timbo Ball DO Work Phone: 1(419)[address] [place], [place] 6104202-19-2025 10:21-0500 Systolic blood hwboftjy104 mm[Hg]Timbo Ball DO Work Phone: 1(419)[address] [place], [place] 6104201-16-2025 10:32-0500 Body hrhwke915.8 cmBenjamin Ball DO Work Phone: 1(419)[address] [place], [place] 6104201-16-2025 10:32-0500 Body mass index (BMI) [Ratio]28.1 kg/v3Wcamjljm Ball DO Work Phone: 1(419)[address] [place], [place] 6104201-16-2025 10:32-0500 Body rpaaipscjpy35.8 [degF]Timbo Ball DO Work Phone: 1(419)[address] [place], [place] 6104201-16-2025 10:32-0500 Body ytoxtq32.9 kgBenjamin Ball DO Work Phone: 1(419)[address] [place], [place] 6104201-16-2025 10:32-0500 Diastolic blood ofxpjoul17 mm[Hg]Timbo Ball DO Work Phone: 1(419)[address] [place], [place] 6104201-16-2025 10:32-0500 Heart rate74 /minBenjamin Ball DO Work Phone: 1(419)[address] [place], [place] 6104201-16-2025 10:32-0500 Systolic blood mmvzwimu477 mm[Hg]Timbo Ball DO Work Phone: 1(419)[address] [place], [place] 6104212-19-2024 15:02-0500 Body mlairb592.8 cmBenjamin Ball DO Work Phone: 1(419)[address] [place], [place] 6104212-19-2024 15:02-0500 Body mass index (BMI) [Ratio]28.1 kg/p3Bknbjeoc Ball DO Work Phone: 1(419)[address] [place], [place] 6104212-19-2024 15:02-0500 Body logalz58.96 kgBenjamin Ball DO Work Phone: 1419)[address] [place], [place] 6104212-19-2024 15:02-0500 Diastolic blood hyjxwvfr79 mm[Hg]Timbo Ball DO Work Phone: 1419)[address] [place], [place] 6104212-19-2024 15:02-0500 Heart rate69 /minBenjamin Ball DO Work Phone: 1(419)[address] [place], [place] 6104212-19-2024 15:02-0500 Respiratory rate12 /minBenjamin Ball DO Work Phone: 1419)[address] [place], [place] 6104212-19-2024 15:02-0500 Systolic blood mdsvchod057 mm[Hg]Timbo Ball DO Work Phone: 1(447)[address] [place], [place] 6104212-17-2024 09:00-0500 Body uqqksl067.8 cmBenjamin Ball DO Work Phone: 1419)[address] [place], [place] 6104212-17-2024 09:00-0500 Body mass index (BMI) [Ratio]28.3 kg/y6Oiinnlcc Ball DO Work Phone: 1(055)[address] [place], [place] 6104212-17-2024 09:00-0500 Body hpsxta42.35 kgBenjamin Ball DO Work Phone: 1(168)[address] [place], [place] 6104212-17-2024 09:00-0500 Diastolic blood eftfxqsv35 mm[Hg]Timbo Ball DO Work Phone: 1(419)[address] [place], [place] 6104212-17-2024 09:00-0500 Heart rate73 /minBenjamin Ball DO Work Phone: 1419)[address] [place], [place] 6104212-17-2024 09:00-0500 Respiratory rate18 /minBenjamin Ball DO Work Phone: 1419)[address] [place], [place] 6104212-17-2024 09:00-0500 SaO2% (BldA) [Mass fraction]96 %Timbo Ball DO Work Phone: 1(209)[address] [place], [place] 6104212-17-2024 09:00-0500 Systolic blood siojaeeq481 mm[Hg]Timbo Ball DO Work Phone: 1(148)[address] [place], [place] 6104212-09-2024 13:22-0500 Diastolic blood nxnpdguk88 mm[Hg]Timbo Ball DO Work Phone: 1(339)[address] [place], [place] 6104212-09-2024 13:22-0500 Heart rate60 /minBenjamin Ball DO Work Phone: 1(870)[address] [place], [place] 6104212-09-2024 13:22-0500 Respiratory rate16 /minBenjamin Ball DO Work Phone: 1(595)[address] [place], [place] 6104212-09-2024 13:22-0500 SaO2% (BldA) [Mass fraction]97 %Timbo Ball DO Work Phone: 1(932)[address] [place], [place] 6104212-09-2024 13:22-0500 Systolic blood qegtzgjf802 mm[Hg]Timbo Ball DO Work Phone: 1(249)[address] [place], [place] 6104212-09-2024 11:10-0500 Inhaled oxygen flow rate4 L/minBenjamin Ball DO Work Phone: 1(380)[address] [place], [place] 6104212-09-2024 09:08-0500 Body ytobqx607.8 cmBenjamin Ball DO Work Phone: 1(307)[address] [place], [place] 6104212-09-2024 09:08-0500 Body eupiol92 kgBenjamin Ball DO Work Phone: 1(523)[address] [place], [place] 6104211-25-2024 11:45-0500 Diastolic blood mrtjtzpi33 mm[Hg]Timbo Ball DO Work Phone: 1(743)[address] [place], [place] 6104211-25-2024 11:45-0500 Heart rate60 /minBenjamin Ball DO Work Phone: 1(819)[address] [place], [place] 6104211-25-2024 11:45-0500 Respiratory rate16 /minBenjamin Ball DO Work Phone: 1(139)[address] [place], [place] 6104211-25-2024 11:45-0500 SaO2% (BldA) [Mass fraction]95 %Timbo Ball DO Work Phone: [facility]11-25-2024 11:45-0500 Systolic blood zhlaopnv10 mm[Hg]Timbo Ball DO Work Phone: [facility]11-25-2024 09:30-0500 Inhaled oxygen flow rate4 L/minBenjamin Ball DO Work Phone: [facility]11-25-2024 07:36-0500 Body koaqwb239.8 cmBenjamin Ball DO Work Phone: [facility]11-25-2024 07:36-0500 Body fptruf00.45 kgBenjamin Ball DO Work Phone: [facility]11-11-2024 11:23-0500 Blood Pressure LocationPatricfelicia [employer] [facility]11-11-2024 11:23-0500Diastolic blood mlvnyqyf31 mm[Hg]Salome HILLS [facility]11-11-2024 11:23-0500Heart rate67 /minPatrick [employer] [facility]11-11-2024 11:23-0500Respiratory rate18 /minPatrick HILLS [facility]11-11-2024 11:23-0500Systolic blood mm[Hg]Salome HILLS [facility]10-22-2024 11:00-0400Body wdozji482.8 cmDO Timbo Ball Work Phone: [facility]10-22-2024 11:00-0400 Body mass index (BMI) [Ratio]28.5 kg/m2DO Timbo Ball Work Phone: [facility]10-22-2024 11:00-0400 Body egtlqd61.43 kgDO Timbo Ball Work Phone: [phone]10-22-2024 11:00-0400 Diastolic blood yovflxmy52 mm[Hg]DO Timbo Ball Work Phone: 1([phone])115-87[facility]10-22-2024 11:00-0400 Heart rate69 /minDO Timbo Ball Work Phone: [phone]10-22-2024 11:00-0400 Respiratory rate12 /minDO Timbo Ball Work Phone: 1(471)812-[address] [place], [place] 6610210-22-2024 11:00-0400 Systolic blood mm[Hg]DO Timbo Ball Work Phone: [phone]10-16-2024 09:46-0400 Diastolic blood etyiqfzx19 mm[Hg]DO Timbo Ball Work Phone: [phone]10-16-2024 09:46-0400 Heart rate68 /minDO Timbo Ball Work Phone: 1(641)314-[address] [place], [place] 6610210-16-2024 09:46-0400 Systolic blood dmuupnlw878 mm[Hg]DO Timbo Ball Work Phone: [phone]10-07-2024 14:15-0400 Body .8 cmUniversity [facility]als [facility]10-07-2024 14:15-0400Body mass index (BMI) [Ratio]28.4 kg/w3BhiadzuslUniversity Hospitals Geauga Medical Center10-07-2024 14:15-0400Body dduzaf40.81 kg[facility]10-[facility]2024 14:15-0400Diastolic blood lxmmuhpj00 mm[Hg][facility] 08-16-2024 14:15-0400Heart rate71 /[facility] 08-16-2024 14:15-0400Respiratory rate18 /[facility] 08-16-2024 14:15-7134OtQ7% (BldA) [Mass fraction]94 %[facility]10-07-2024 14:15-0400Systolic blood nzufyzla564 mm[Hg][facility]08-21-2024 10:03-0400Body kdyxam701.8 cmDO Timbo Ball Work Phone: [phone]08-21-2024 10:03-0400 Body mass index (BMI) [Ratio]28.5 kg/m2DO Timbo Ball Work Phone: [phone]08-21-2024 10:03-0400 Body sngjyr54.43 kgDO Timbo Ball Work Phone: [phone])[address] [place], [place] 6104208-21-2024 10:03-0400 Diastolic blood gknfbanh13 mm[Hg]DO Timbo Ball Work Phone: [phone]08-21-2024 10:03-0400 Heart rate80 /minDO Timbo Ball Work Phone: [phone]08-21-2024 10:03-0400 Respiratory rate12 /minDO Timbo Ball Work Phone: [phone])[address]08-21-2024 10:03-0400 Systolic blood drvdmqod332 mm[Hg]DO Timbo Ball Work Phone: [phone])[address]06-27-2024 12:38-0400 Body occqyf069.8 cmDO Timbo Ball Work Phone: [phone]06-27-2024 12:38-0400 Body mass index (BMI) [Ratio]29 kg/m2DO Timbo Ball Work Phone: [phone]06-27-2024 12:38-0400 Body yxnwguzruin63.3 [degF]DO Timbo Ball Work Phone: [phone]06-27-2024 12:38-0400 Body wujabi39.62 kgDO Timbo Ball Work Phone: [phone] [place], [place] 6104206-27-2024 12:38-0400 Diastolic blood rodabzpn66 mm[Hg]DO Timbo Ball Work Phone: [facility]06-27-2024 12:38-0400 Heart rate62 /minDO Timbo Ball Work Phone: [facility]06-27-2024 12:38-0400 SaO2% (BldA) [Mass fraction]90 %DO Timbo Ball Work Phone: [facility]06-27-2024 12:38-0400 Systolic blood begolnci533 mm[Hg]DO Timbo Ball Work Phone: [facility]05-06-2024 11:40-0400 Body yxkzgo994.8 cmUniversity [facility]05-06-2024 11:40-0400Body mass index (BMI) [Ratio]29 kg/k6YupnomjwkUniversity Hospitals Geauga Medical Center05-06-2024 11:40-0400Body cmzaxe70.73 kgUniversity [facility]05-06-2024 11:40-0400Diastolic blood iwimdmwa51 mm[Hg][facility] 03-15-2024 11:40-0400Heart rate66 /[facility] 03-15-2024 11:40-0400Respiratory rate12 /[facility] 03-15-2024 11:40-0400Systolic blood zfqzvnyo286 mm[Hg][facility]02-29-2024 14:10-0500Body tjamvj660.8 cmUniversity [facility] 01-08-2024 14:10-0500Body mass index (BMI) [Ratio]28.8 kg/z5QkfpuoyiyUniversity Hospitals [facility] Center02-29-2024 14:10-0500Body nygimy94.94 kgUniversity [facility]01-12-2024 10:30-0500Body wowgts497.8 cmBenjamin Ball Other [employer] Other 01-12-2024 10:30-0500Body mass index (BMI) [Ratio] 29.12 kg/f2Zydaawbs Ball Other no[facility] [employer] Other 01-12-2024 10:30-0500Body .08 kgBenjamin Ball Other [employer] Other 01-12-2024 10:30-0500Diastolic blood czhljydm47 mm[Hg] Timbo Ball Other [employer] Other 01-12-2024 10:30-0500Respiratory rate12 /minBenjamin Ball Other [employer] Other 01-12-2024 10:30-0500Systolic blood pybmkwnl433 mm[Hg] Timbo Ball Other [employer] Other 11-15-2023 11:00-0500Body .8 cmBenjamin Ball Other [employer] Other 11-15-2023 11:00-0500Body mass index (BMI) [Ratio] 28.69 kg/l3Aivvfprh Ball Other [employer] Other 11-15-2023 11:00-0500Body tdybye77.72 kgBenjamin Ball Other [employer] Other 11-15-2023 11:00-0500Diastolic blood ytcsvbld63 mm[Hg] Timbo Ball Other [employer] Other 11-15-2023 11:00-0500Respiratory rate12 /minBenjamin Ball Other [employer] Other 11-15-2023 11:00-0500Systolic blood mm[Hg] Timbo Ball Other [facility] [employer] Other [phone] 12:21-0400Blood Pressure LocationPatricfelicia HILLS [facility]10-16-2023 12:21-0400Diastolic blood mm[Hg]Salome HILLS [facility]10-16-2023 12:21-0400Heart rate80 /minPamirna HILLS [facility]10-16-2023 12:21-0400Respiratory rate16 /minPamirna HILLS [facility]10-16-2023 12:21-0400Systolic blood mm[Hg]Salome HILLS [facility]06-03-2023 09:16-0400Body ufhbazdzzgp40 [degF]ANDERSON Ann Work Phone: [facility]06-03-2023 09:16-0400Body zttlet96.45 kgPA Aury Ann Work Phone: [facility]06-03-2023 09:16-0400 Diastolic blood hmyxxfnx02 mm[Hg]ANDERSON Ann Work Phone: [facility]06-03-2023 09:16-0400Heart rate80 /minPA Aury Ann Work Phone: [facility]06-03-2023 09:16-0564UkT1% (BldA) [Mass fraction]96 %ANDERSON Ann Work Phone: [facility]06-03-2023 09:16-0400 Systolic blood jxuhcymm427 mm[Hg]PA Aury Vasquezabi Work Phone: [facility]05-15-2023 12:00-0400Body ystxsg883.8 cmBenjamin Ball Other [employer] Other 05-15-2023 12:00-0400Body mass index (BMI) [Ratio] 28.44 kg/p0Fxzdifhd Ball Other [employer] Other 05-15-2023 12:00-0400Body tlerqi57.9 kgBenjamin Ball Other [employer] Other 05-15-2023 12:00-0400Diastolic blood wwgenjap65 mm[Hg] Timbo Ball Other [employer] Other 05-15-2023 12:00-0400Respiratory rate12 /minBenjamin Ball Other [employer] Other 05-15-2023 12:00-0400Systolic blood wuabnjok984 mm[Hg] Timbo Ball Other [employer] Other 06-20-2022 14:30-0400Body qpbaal181.8 cmNiya Baker Other [employer] Other 06-20-2022 14:30-0400Body mass index (BMI) [Ratio] 28.69 kg/l0IlvweiNiya Baker Other [employer] Other 06-20-2022 14:30-0400Body afpqqqshfqw95.3 [degF]Niya Baker Other [employer] Other 06-20-2022 14:30-0400Body babakg82.72 kgNiya Baker Other [facility] [employer] Other 06-20-2022 14:30-0400Diastolic blood rplxihhm87 mm[Hg] Niya Baker Other [facility] [employer] Other 06-20-2022 14:30-7028GbC8% (BldA) [Mass fraction]98 % Niya Baker Other [facility] [employer] Other 06-20-2022 14:30-0400Systolic blood ijxropbp494 mm[Hg] Niya Baker Other [facility] [employer] Other 06-10-2022 10:04-0400Blood Pressure LocationPatricAchieve X [facility] 06-10-2022 10:04-0400Diastolic blood silgdngh71 mm[Hg] Salome [employer] [facility] 06-10-2022 10:04-0400Heart rate67 /minPatrick [employer] [facility] 06-10-2022 10:04-0400Respiratory rate16 /minPatrick [employer] [facility] 06-10-2022 10:04-0400Systolic blood gplwifrt671 mm[Hg] Salome [employer] [facility] Encounters Encounter DateEncounter TypeCare ProviderFacilityStart: 02-83-1049iwplimnisd Salome HILLSFacility:EU [place]vueStart: 09-15-2025 End: 80-48-4312Rbwtemg encounter procedureDandre Pittman MD-CT Scan [facility] Work Phone: Start: 09-15-2025 End: 30-77-7123lnxulwlvyfYuqzhqqs Ball DO Work Phone: -CT Scan [facility] CenterStart: 08-29-2025 End: 74-40-4735lsgldrpswmHhiiahyVanessa Marcum MDFacility:PM [place] Start: 08-18-2025 End: 82-42-2375Bcpkazw encounter procedureDandre Pittman MD-[facility] Work Phone: Start: 08-18-2025 End: 51-35-3630eoqgqnjhmxHairzuqz Ball DO Work Phone: [facility] Work Phone: Start: 24-23-7131trptgfuextOjmnnfn WATERSFacility:EU [place]kyStart: 32-69-1739Qyx-patient / Non-visitBenjamin Ball DO-[facility] Work Phone: Start: 07-29-2025 End: 25-99-5789yijgomfvlfUhqaxlcd Ball DO Work Phone: [facility] Work Phone: Start: 07-29-2025 End: 16-20-8532Nqvxpfg encounter procedureBenjamin Ball DO-[facility] Work Phone: Start: 05-12-2025 End: 27-77-4604ujuooqiuepVdtkzquk Ball DO Work Phone: [facility] Work Phone: Start: 05-12-2025 End: 25-10-1045Opcdrrr encounter procedureMadeirdre Finnegan MD-[facility] V[facility] S[facility] Work Phone: Start: 92-93-0800Ffh-patient / Non-visitBenjamin Ball DO-[facility] Work Phone: Start: 28-99-1051Iteznyc encounter procedureBenjamin Ball DO Work Phone: [facility]: 03-18-2025 End: 58-30-3294Gqpxijb encounter procedureBenjamin Ball DO-[facility] Work Phone: Start: 12-29-2024 End: 72-19-9054oltjjswsdxQowdoboh Ball DO Work Phone: [facility] Work Phone: Start: 12-29-2024 End: 33-97-2648Zjtzfua encounter procedureBenjamin Ball DO Work Phone: [facility] Work Phone: Start: 12-07-2024 End: 75-82-2058Psqnfoj encounter procedureBenjamin Ball DO Work Phone: [facility]Ultrasound [place] Work Phone: Start: 12-07-2024 End: 38-66-5313pqvonfwhkwTlhtehoe Ball DO Work Phone: [facility] Work Phone: Start: 11-25-2024 End: 64-38-3395lwzdfagqzdYkrffqul Ball DO Work Phone: [facility] Work Phone: Start: 11-25-2024 End: 65-18-6773Cystndr encounter procedureBenjamin Ball DO Work Phone: [facility] Work Phone: Start: 41-29-8059Xjv-patient / Non-visitBenjamin Ball DO Work Phone: [facility] Physician [facility] Work Phone: Start: 10-28-2024 End: 73-17-3257Dmoerrm encounter procedureBenjamin Ball DO Work Phone: [facility] Physician [facility] Work Phone: Start: 10-26-2024 End: 63-29-7775Klmgpiz encounter procedureBenjamin Ball DO Work Phone: [facility] Physician [facility] Cardiology Work Phone: Start: 15-77-3160Ieb-patient / Non-visitBenjamin Ball DO Work Phone: [facility] Physician [facility] Vascular Surg Work Phone: Start: 10-18-2024 End: 43-25-8961Rnxfytelt to same day surgery centerBenjamin Ball DO Work Phone: [facility]-Interventional Radiology Work Phone: Start: 10-18-2024 End: 47-82-9101migeztdqpbFrhlresu BallFacility:[facility] Start: 23-14-7089Qgd-patient / Non-visitBenjamin Ball DO Work Phone: [facility] Physician [facility] Vascular Surg Work Phone: Start: 10-04-2024 End: 00-49-8980Ratjcwupq to same day surgery centerBenjamin Ball DO Work Phone: [facility]-Interventional Radiology Work Phone: Start: 10-04-2024 End: 80-58-8860eaeaiuuioaKzkiclbk BallFacility:[facility] Start: 09-20-2024 End: 86-83-4378vkvwyibmjvWlxgwje R WATERSFacility:EU [place]Start: 09-20-2024 End: 35-82-5432Sbtgmhq encounter procedurePamirna HILLS [facility] Jose David start: 09-15-2024 End: 94-03-4926xaofybcjneIU Timbo Abad Work Phone: [facility] Work Phone: Start: 09-15-2024 End: 55-90-3866Heenffq encounter procedureDO Timbo Abad Work Phone: [facility] Vascular Surgery Work Phone: Start: 08-31-2024 End: 09-69-0131hyhqxhqnwqGQ Timbo Abad Work Phone: [facility] Work Phone: Start: 08-31-2024 End: 04-84-8325Ijcpbhh encounter procedureDO Timbo Abad Work Phone: [facility] Work Phone: Start: 08-26-2024 End: 19-17-7003dzmrqojvreSS Timbo Abad Work Phone: [facility] Work Phone: Start: 08-26-2024 End: 95-32-6222Xxfdbzb encounter procedureDO Timbo Abad Work Phone: [facility]trasound [facility] [place] Work Phone: Start: 08-25-2024 End: 43-09-4448fawwdleqiyEF Timbo Abad Work Phone: [facility] Work Phone: Start: 08-25-2024 End: 04-83-4496Vsfvgih encounter procedureDO Timbo Abad Work Phone: [facility]-Nuc Med [place] Work Phone: Start: 08-16-2024 End: 76-35-4506yofqvqczhlTykwytgyh [facility] Work Phone: Start: 08-16-2024 End: 69-82-5323Xpfnoes encounter procedureDavis Regional Medical Centerkasie Physician [facility] Cardiology Work Phone: Start: 06-30-2024 End: 50-33-5766lqoscvyvjaUP Timbo Abad Work Phone: [facility] Work Phone: Start: 06-30-2024 End: 15-33-5448Icykaju encounter procedureDO Timbo Abad Work Phone: [facility] Work Phone: Start: 05-06-2024 End: 69-08-0327mgpoxtpuxnPK Timbo Abad Work Phone: [facility] Work Phone: Start: 05-06-2024 End: 86-06-2056Lazmack encounter procedureDO Timbo Abad Work Phone: [facility] Vascular Surgery Work Phone: Start: 42-54-1796Hvw-patient / Non-visitDO Timbo Abad Work Phone: [facility] Work Phone: Start: 88-54-9223Ehh-patient / Non-visitDO Timbo Abad Work Phone: [facility] Work Phone: Start: 17-18-2911Kxg-patient / Non-visitDO Timbo Abad Work Phone: [facility] Work Phone: Start: 03-15-2024 End: 70-81-8389vaknondqzgWzvapuzgsUniversity Hospitals St[facility] Work Phone: start: 03-15-2024 End: 43-09-1144Ipzpxcy encounter procedureRaem[facility] Work Phone: Start: 02-11-2024 End: 83-05-8281epwyiuflpiJKWMDJMC D GUANACOMesfin AvailableStart: 01-15-2024 End: 03-03-8153pstnyapcioTRCLFIBBlanchard Valley Health System Bluff[facility] Hospitaltart: 01-08-2024 End: 55-19-4973Vchnmnc encounter procedureSam[facility] Neurosurgery Work Phone: start: 31-02-8076Hwr-patient / Non-visitSampson [facility] Work Phone: Start: 12-17-2023 End: 63-79-4382wxseqsqcwgAIOWPBABlanchard Valley Health System Bluff[facility] Hospitaltart: 11-21-2023 End: 73-68-4714ynejpuffzyUnvhrhvn Ball Other [employer] Other Start: 03-44-4176Foxkiw outpatient visit 15 minutes Timbo BallFPG [facility] ClinicStart: 10-08-2023 End: 46-76-2487xqkxpqfayhYwnifnsk Ball Other [employer] Other Start: 72-31-6812Arbvrhjgq encounterBenjamin BallFPG [facility] ClinicStart: 09-24-2023 End: 79-87-1662kzhlfeazbtUhyetiqr Ball Other [employer] Other Start: 29-04-3428Abgvuu outpatient visit 25 minutes Timbo BallFPG [facility] ClinicStart: 79-70-3146Xszzih outpatient visit 15 minutesMatthew LangenbergFPG Vascular SurgeryStart: 09-04-2023 End: 59-56-0000qrhiavllmlEV Timbo Ball Work Phone: [employer] Other Start: 09-04-2023 End: 24-31-8875Gcyopqi encounter procedureDO Timbo Ball Work Phone: [facility] CompanyUl[facility]ound [facility] VascularStart: 08-25-2023 End: 22-47-2085Ydiiuak encounter procedurePamirna Clint HILLS [facility] Jose David start: 2023 End: 44-65-3738wskjhnwhqtPkidwp [employer] Other no[facility] [employer] Other Start: 46-72-9032Tsubdqjit encounterNiya Abad Medical ClinicStart: 05-22-2023 End: 73-92-0856hpxnvksucoPwwtml [employer] Other [facility] [employer] Other Start: 99-24-1000Yybdomeen encounterNiya Abad Medical ClinicStart: 05-01-2023 End: 15-97-7374qdtqfrghkaQN Timbo Jenniffer Work Phone: [facility] Work Phone: Start: 05-01-2023 End: 37-09-2889Lcesixd encounter procedureDO Timbo Jenniffer Work Phone: [facility]-Ultras[facility] VascularStart: 04-12-2023 End: 75-81-6718toykjxigetDX Aury Ann Work Phone: [facility] Work Phone: [phone]: 04-12-2023 End: 12-95-8039Amqnweu encounter procedurePA Aury Ann Work Phone: [facility] Work Phone: Start: 44-89-5707ooubvdfcitGCKrystin ABADFacility:H1 Start: 03-24-2023 End: 27-12-2614wilewmrneoRozjpmee Ball Other no[facility] [employer] Other start: 42-77-2915Cmodsev encounter procedureBenkatina Abad Medical ClinicStart: 09-25-2022 End: 04-48-7745ufsnkyjwjsER TIMBO ABADFacility:F0Bulrw: 07-09-2022 End: 16-12-8913nqzpjvdwoqSRJPPIV TUCKERFacility:X5Ytwxx: 04-29-2022 End: 66-12-3201tztinncyfbFqdxfb Rutt[employer] Other [facility] [employer] Other Start: 82-42-7067Widbik-up encounterNiya Lewis Vascular SurgeryStart: 04-29-2022 End: 89-22-0354Zfwlnni encounter procedureDO Timbo Abad Work Phone: [facility] VascularStart: 04-27-2022 End: 48-61-8117uxoascqnnvBE TIMBO ABADFacility:H3Texfk: 04-19-2022 End: 83-21-3723Ldtdojf encounter procedurePamirna HILLS [facility] start: 04-18-2022 End: 33-50-5372tjzfwvzxvuWA SALOME HILLS .Facility:D2Btdco: 06-44-4001Lkghe health examinationMauniversity hospitals [facility] Kain Other [facility] [employer] Other Procedures DateProcedureProcedure DetailPerforming ClinicianStart: 27-14-4306BC angiography of headBenjamin Ball DO Work Phone: Start: 23-72-6465NX angiography of neck vessels Timbo Ball DO Work Phone: Start: 31-53-0508Qcmec brachial pressure indexBenjamin Ball DO Work Phone: Start: 00-49-5884Flsvpsg ultrasonography of bilateral carotid arteriesBenjamin Ball DO Work Phone: Start: 16-11-5134Zpwhi volume recorder plethysmography Timbo Abad DO Work Phone: Start: 55-81-8633CjmlyxksnfdSrppyggr Ball DO Work Phone: Start: 09-29-8955Ztapb limb angiographyBenkatina Abad DO Work Phone: Start: 96-38-3317Shavb volume recorder plethysmography DO Timbo Abad Work Phone: Start: 93-54-5020Hxvzzjqrapfo myocardial perfusion stress studyDO Timbo [employer] Work Phone: Start: 24-71-0352Pyxjxgr ultrasonography of bilateral carotid arteriesDO Timbo [employer] Work Phone: Start: 76-20-4023Wazxd brachial pressure indexDO Timbo [employer] Work Phone: Start: 67-14-4697Rgfksntwwubrra shockwave lithotripsy of calculus of kidneyPatrick HILLS Start: 18-86-7526Mam BPA Aury Shehorn Work Phone: Start: 12-66-8419Dpzzv StrepPA Aury Shehorn Work Phone: Start: 65-94-0040Jutzgzkumdcozv shockwave lithotripsy of calculus of kidneyPatrick HILLS Start: 47-69-9686SbqcxtvddcAncqpeb HILLS Start: 70-76-3411Jcjgkaegsnc removal of ureteric stent Salome HILLS Start: 26-89-9679Lfztqftjrvn insertion of ureteric stentPatrick HILLS Start: 71-58-5100Tazrjrddt for malignant neoplasm of colonHudson Valley Hospitallyssa Finnegan Other Start: 08-73-9941Orgsabsjdilhrb shockwave lithotripsy of calculus of kidneyPatricfelicia [employer] Comment on above:w/ left stent removalStart: 03-25-2016 Lithotripsy using laserNaturalPath Media Comment on above:Cystoscopy/Urethreal dilateion/Left stent placement/ Holmium laser of left prostatic calculus/StoneextractionStart: 49-82-5981Rzmwfnih artery bypass graftPamirna [employer] Start: 13-99-4737Nsvsjxfn artery stent (physical object)Salome HILLS Start: 00-51-9096BceuanevpcCjxuyyi WATERS Start: 36-01-4430HeuzvzsnlwCqxbzog WATERS Start: 29-84-1206Uinawoezivpeb prostatectomySkylight Healthcare Systemsfelicia [employer] Comment on above:w/ CystoscopyStart: 11-10-2001 Transrectal biopsy of prostate using ultrasound guidanceAndersonShape [employer] CystoscopyNaturalPath Media Depression screeningMattlyssa Finnegan Other HemorrhoidectomyNaturalPath Media Herniated structure (morphologic abnormality)Salome HILLS History of coronary artery bypass graftingS/P CABG (coronary artery bypass graft)Timbo Abad DO Work Phone: Urodynamic studiesNaturalPath Media Plan of Treatment DateCare ActivityDetailAuthorStart: 10-39-2929Kuuju brachial pressure indexUS ankle/arm indicesOhioHealth Riverside Methodist Hospitaltart: 78-67-5449Nidvxyu ultrasonography of bilateral carotid arteriesUS carotid doppler BIFSelect Medical Specialty Hospital - Youngstowntart: 95-20-3923Qzaxy volume recorder plethysmography [facility] Hospitaltart: 88-97-0415PnwdpphsfOhioHealth Riverside Methodist Hospitaltart: 34-20-9006ZjgzwdbhtOhioHealth Riverside Methodist Hospitaltart: 88-31-0442Lstty volume recorder plethysmographyOhioHealth Riverside Methodist Hospitaltart: 48-17-5652Hylaacgvzcgc myocardial perfusion stress studyNM charito perf SPECT rest & strOhioHealth Riverside Methodist Hospitaltart: 64-69-4407WhkeitmxlOhioHealth Riverside Methodist Hospitaltart: 06-30-6647Kuywzms [facility] Work Phone: Start: 83-83-7789Smfasuj ultrasonography of bilateral carotid arteriesUS carotid doppler [facility] Columbustart: 20-29-8688RV.doppler Carotid arteries - [facility] Hospitaltart: 99-91-4916Sjotpqi [facility] Work Phone: Start: 34-32-6922Ppykpoa ultrasonography of bilateral carotid arteriesUS carotid doppler [facility] Columbustart: 07-89-6535KK.doppler Carotid arteries - [facility] Hospitaltart: 03-57-5245Tzddzlt ultrasonography of bilateral carotid arteriesUS carotid doppler Doctors HospitalAnkle brachial pressure index [facility] CenterComprehensive metabolic 1999 panel - Serum or [facility] ClinicComprehensive metabolic 1999 panel - Serum or [facility] ClinicComprehensive metabolic 1999 panel - Serum or [facility] ClinicPatient EducationParkview Huntington Hospital Work Phone: Patient [facility] Work Phone: US.doppler Carotid arteries - [facility] HospitalUS.doppler Carotid arteries -[facility] HospitalXR Lumbar spine 4 ViewsHayward Hospital Immunizations Immunization DateImmunizationNotesCare XwmrbjmvMwmteroj69-27-2874qryrhwpja, high dose seasonal, preservative-freeBenjamin Ball DO Work Phone: [facility]09-06-2024influenza virus vaccine, unspecified formulationPatrick HILLS [facility]09-20-2023influenza virus vaccine, unspecified formulationPaShape Collage [facility]09-25-2022COVID-19 Pfizer (bivalent)Timbo Ball Other [facility]09-25-2022influenza virus vaccine, unspecified formulationPa[employer] [facility]09-25-2022influenza, high dose seasonal, preservative-freeBenkatina Abad Other [employer] Other [id number]-62 PfizerBegokul Abad Other [facility]04-14-2022SARS-CoV-2 mRNA (xkomfhkqjjs-xbjm-kgvyjbn) vaccinePa[employer]age [facility]10-28-2021zoster vaccine recombinantBenkatina Abad Other [facility]10-01-2021influenza virus vaccine, unspecified formulationPa[employer] [facility] [id number]-81 Vaccine Pfizer - Documentation Purposes OnlyBenjamin Ball Other [facility] HospitalComment on above:Result Comment: 2023-04-21: [id number] virus vaccine, unspecified formulationPa[employer]age [facility]07-07-2021zoster vaccine recombinantBenjazelalem Abad Other [facility]03-02-2021COVID-19 Vaccine Pfizer - Documentation Purposes OnlyBenkatina Ball Other [facility] on above:Result Comment: 2023-04-21: [id number] Vaccine Pfizer - Documentation Purposes OnlyBenkatina Abad Other [facility] on above:Result Comment: 2023-04-21: [id number] virus vaccine, unspecified formulation[employer] [facility]10-11-2019influenza virus vaccine, split virus (incl. purified surface antigen)Jaylon Finnegan Other [employer] Other [id number] virus vaccine, unspecified formulation[facility]10-01-2019influenza virus vaccine, unspecified formulationPa[employer] [facility]04-12-2019pneumococcal polysaccharide vaccine, 23 valentBenjamin Ball Other [facility]11-12-2018influenza virus vaccine, unspecified formulationPa[employer]age [facility]10-10-2018influenza virus vaccine, split virus (incl. purified surface antigen)Jaylon Finnegan Other [employer] Other [id number] virus vaccine, unspecified formulationUniversity [facility]als [facility]04-09-2018pneumococcal conjugate vaccine, 13 valentBenkatina Abad Other [facility]10-24-2017influenza virus vaccine, unspecified formulation[employer] [facility]10-19-2016influenza virus vaccine, unspecified formulation[employer] [facility]10-13-2015influenza virus vaccine, unspecified formulation[employer] [facility]10-10-2013influenza virus vaccine, unspecified formulationNatural[employer] [facility] Payers DatePayer CategoryPayerPolicy [id number] Health [id number] [id number] 1960Medicare [id number] Health [id number] 2..1.609431.3.57[id number] 2..1.519616.3.57[id number] 2..1.247559.3.57[id number] 2.16.840.1.545815.3.57[id number] 2.16.840.1.136261.3.57[id number] 2.16.840.1.753324.3.57[id number] 2.16.840.1.414088.3.57[id number] 2.16.840.1.104388.3.57[id number] 2.16.840.1.3[id number] 2.16.840.1.772865.3.579.2.531 [id number] 2.16.840.1.1[id number] 2.16.840.1.7[id number] 2.16.840.1.027493.3.579.2.531 [id number] 2.16.840.1.1[id number] 2.16.840.1.658560.3.579.2.531 Social History DateTypeDetailFacilityStart: 08-27-2021 End: 88-09-5766Xdezzyo smoking statusEx-smoker (finding)[facility] sex [facility] start: 65-41-2530Pvz [facility]igned At [facility] Hospitaltart: 16-13-3214NnbxuPmkplqSelect Medical Specialty Hospital - Youngstowntart: 85-56-13524OcvfqnK[facility]tering Health Behavioral Medical Centertart: 66-56-9121Lilvuhh smoking status NHISNever smoked tobacco (finding)[facility]: 11-25-2024 End: 70-70-1705NihQseb (finding)[facility] Medical Equipment Procedure CodeEquipment CodeEquipment Original TextEquipment IdentifierDates Angiogram, lower extremity, leftMultiple peripheral artery stent, bare-metal [id number] FDAStart: 10-04-2024 Functional Status WwtpDmarmgwrcbParukzWraiovph28-87-3169Dnicomslmk StatusN/AExec[facility]10-16-2023Functional StatusN/A[facility] Clinical Notes 04-19-2022 to 09-15-2025 Note Date & UkifKoggAwoliiuo04-16-1481 Radiology Diagnostic study [facility]UN[facility] [place] [address] CT Scan Report Signed Patient: aMx Friedman MR#: [id number] : 1940 Acct:[id number] Age/Sex: 85 / M ADM Date: 5 Loc: CT Room: Type: [facility] Attending Dr: Dandre Degroot MD Copies to: Dandre Degroot MD~ Ordering Provider: Dandre Degroot MD Date of Service: 09/15/25 CT/CT angio neck: I65.23 - Occlusion and stenosis of bilateral carotid avila... ([id number]) CT/CT angio head: I65.23 - Occlusion and [...] within the region of the V1 and L6zyxtuuaa and and normal contrast opacification V4 and [...] Santoyo M.D. 09/15/2025 4:26 PM Dictation Location: [place] [address] Transcribed By: [facility] 09/15/25 1626 Dictated By: Garret Santoyo MD 09/15/25 1612 Signed By: 09/15/25 1626 [facility] Work Phone: 1(424) 949-891309-19-2025 Evaluation note* Diagnosis Onset Date Resolution Status Admit Date Anemia acuteSept2024 9:59amASHD (arteriosclerotic heart disease)acute July 29, 2025 9:59am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acuteSept2024 9:59amCarotid stenosis, bilateralacutept2024 9:59amChronic heart failure with preserved ejection fraction (HFpEF)acuteSept2024 9:59amChronic kidney disease acuteSept2024 9:59amHypercholesterolemiaacuteSept2024 9:59amHypertensionacutept2024 9:59amNeurogenic claudication due to lumbar spinal stenosisacuteSept2024 9:59amPrimary insomniaacute July 29, 2025 9:59amSubclinical hypothyroidismacuteSept2024 9:59amCarotid artery stenosis, asymptomaticacuteOctober 2024 10:25amFormer smokeracuteOctober 2024 10:25amHistory of left common carotid artery stent placementacuteOctober 2024 10:25amPAD (peripheral artery disease)acute August 18, 2025 10:25am [facility] Work Phone: 1(779) 994-522607-03-2025 Evaluation note* Diagnosis Onset Date Resolution Status Admit Date Right-sided extracranial carotid artery stenosis acuteJuly 2024 10:37amAnemiaacuteSept2024 9:59amASHD (arteriosclerotic heart disease)acuteSept2024 9:59am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acuteSept2024 9:59amCarotid stenosis, bilateralacuteSept2024 9:59amChronic heart failure with preserved ejection fraction (HFpEF)acuteSept2024 9:59amChronic kidney diseaseacuteSept2024 9:59amHypercholesterolemia acuteSept2024 9:59amHypertensionacuteSept2024 9:59am Primary insomniaacuteSept2024 9:59amSubclinical hypothyroidismacute July 29, 2025 9:59am [facility] Work Phone: 1(419) 137-947807-03-2025 Radiology Diagnostic study [facility] [address] [place] [address] Ultrasound Report Signed Patient: Max Friedman MR#: [id number] : 1940 Acct:[id number] Age/Sex: 84 / M ADM Date: 5 Loc: [facility] Room: Type: [facility] Attending Dr: Jaylon Finnegan MD Ordering Provider: [...] Finnegan MD,FACS,FSVS 05/12/2025 11:52 AM Dictation Location: [place] [address] Tech: Merle Donaldson Transcribed By: DANIEL 05/12/25 1152 Dictated By: Jayoln Finnegan MD 05/12/25 1151 Signed By: 05/12/25 1152 [facility] Work Phone: 1(732) 706-332507-03-2025 [facility] [address] [place] [address] Ultrasound Report Signed Patient: Max Friedman MR#: [id number] : 1940 Acct:[id number] Age/Sex: 84 / M ADM Date: 5 Loc: [facility] Room: Type: [facility] Attending Dr: Jaylon Finnegan MD Ordering Provider: [...] Finnegan MD,FACS,FSVS 05/12/2025 11:51 AM Dictation Location: [place] [address] Tech: Pam Sheehan Transcribed By: DANIEL 05/12/25 1151 Dictated By: Jaylon Finnegan MD 05/12/25 1151 Signed By: 05/12/25 1151 [facility] Work Phone: 1(227) 715-476105-09-2025 Evaluation note* Diagnosis Onset Date Resolution Status Admit Date ASHD (arteriosclerotic heart disease) acuteMay 2024 9:57am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acuteMay 2024 9:57amCarotid stenosis, bilateral acuteMay 2024 9:57amChronic heart failure with preserved ejection fraction (HFpEF)acuteMay 2024 9:57amChronic kidney diseaseacuteMay 2024 9:57am Elevated TSHacuteMay 2024 9:57amHypercholesterolemiaacuteMay 2024 9:57amHypertensionacuteMay 2024 9:57amMedicare annual wellness visit, subsequentacuteMarch 18, 2025 9:57amPrimary insomniaacuteMay 2024 9:57am [facility] Work Phone: 1(908) 878-358505-09-2025 Evaluation note* Diagnosis Onset Date Resolution Status Admit Date ASHD (arteriosclerotic heart disease) acuteMa2024 9:57am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acuteMay 2024 9:57amCarotid stenosis, bilateral acuteMay 2024 9:57amChronic heart failure with preserved ejection fraction (HFpEF)acuteMay 2024 9:57amChronic kidney diseaseacuteMay 2024 9:57am Elevated TSHacuteMay 2024 9:57amHypercholesterolemiaacuteMay 2024 9:57amHypertensionacuteMay 2024 9:57amMedicare annual wellness visit, subsequentacuteMarch 18, 2025 9:57amPrimary insomniaacuteMay 2024 9:57am Right-sided extracranial carotid artery stenosisacuteJuly 2024 10:37am [facility] Work Phone: 1(363) 785-823812-09-2024 Evaluation note* Diagnosis Onset Date Resolution Status Admit Date PAD (peripheral artery disease) acuteDece2023 8:56amCarotid stenosis, bilateralacuteDece2023 8:58amChronic heart failure with preserved ejection fraction (HFpEF)acute October 26, 2024 8:58amCoronary artery disease involving kake coronary artery of kake heart wiacuteDece2023 8:58amNonrheumatic mitral (valve) stenosisacutece2023 8:58amPAD (peripheral artery disease) acuteDece2023 8:58amS/P aortic valve replacement with bioprosthetic valveacutece2023 8:58amS/P CABG (coronary artery bypass graft)acute October 26, 2024 8:58amASHD (arteriosclerotic heart disease)acuteDece2023 2:47pm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acutece2023 2:47pmCarotid stenosis, bilateralacute October 28, 2024 2:47pmChronic heart failure with preserved ejection fraction (HFpEF)acuteOctober 28, 2024 2:47pmHypercholesterolemiaacuteDecember 2023 2:47pmHypertensionacuteceer 2023 2:47pmPrimary insomniaacute Miguel 2023 2:47pmFormer smokeracuteJanuary 2024 9:58amPAD (peripheral artery disease)acuteJanuary 2024 9:58amRight leg claudication acuteJanuary 2024 9:58am [facility] Work Phone: 1(623) 110-741511-11-2024 Hospital Discharge instructions Patient Education 09/20/2024 12:11:28 Kidney Stones, Ijdr-gn-Xmrn Kidney Stones Kidney stones are rock-like masses [...] Follow these instructions at home: Medicines Take bpig-emt-tlglixq and prescription medicines only as told by [...] provider. Document Revised: 06/20/2023 Document Reviewed: 06/20/2023 [employer] Patient Education 2023 Hobby. Follow Up Care 04/21/2023 10:27:24 With:REINIER HUSAIN, Salome Jaramillo, URL Address: [facility] [address], [place] [address]- [phone] When: Unknown Comments:1 yr w/ KUB [facility] [place] 11-11-2024 NotePatient Education [...] these instructions at home: Medicines ??? Take rzhi-smb-rkjwjpt and prescription medicines only as told by [...] Reviewed: 06/20/2023 Elsevier Patient Education ? 2023 Hobby.[facility] 09-15-2024 Evaluation note* Diagnosis Onset Date Resolution Status Admit Date PAD (peripheral artery disease) acuteSeptember 15, 2024 11:48amPAD (peripheral artery disease)acuteDe2023 8:56amCarotid stenosis, bilateralacuteOctober 26, 2024 8:58amChronic heart failure with preserved ejection fraction (HFpEF)acuteOctober 26, 2024 8:58amCoronary artery disease involving kake coronary artery of kake heart wiacuteOctober 26, 2024 8:58amNonrheumatic mitral (valve) stenosisacute October 26, 2024 8:58amPAD (peripheral artery disease)acuteOctober 26, 2024 8:58amS/P aortic valve replacement with bioprosthetic valveacuteOctober 26, 2024 8:58amS/P CABG (coronary artery bypass graft)acuteOctober 26, 2024 8:58amASHD (arteriosclerotic heart disease)acuteOctober 28, 2024 2:47pm 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acute October 28, 2024 2:47pmCarotid stenosis, bilateralacuteceer 2023 2:47pmChronic heart failure with preserved ejection fraction (HFpEF)acute October 28, 2024 2:47pmHypercholesterolemiaacuteDecember 2023 2:47pm HypertensionacuteDe2023 2:47pmPrimary insomniaacuteDecember 2023 2:47pmFormer smokeracuteJanuary 2024 9:58amPAD (peripheral artery disease)acuteJanuary 2024 9:58amRight leg claudicationacuteJanuary 2024 9:58am [facility] Work Phone: 1(643) 337-189310-22-2024 Evaluation note* Diagnosis Onset Date Resolution Status Admit Date ASHD (arteriosclerotic heart disease) acuteOctober 2023 10:58am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acuteOctober 2023 10:58amCarotid stenosis, bilateralacuteOctober 2023 10:58amChronic heart failure with preserved ejection fraction (HFpEF)acuteOctober 2023 10:58amHypercholesterolemia acuteOctober 2023 10:58amHypertensionacuteOctober 2023 10:58amPAD (peripheral artery disease)acuteNov2023 11:48amPAD (peripheral artery disease)acuteDecember 2023 8:56amCarotid stenosis, bilateralacuteceer 2023 8:58amChronic heart failure with preserved ejection fraction (HFpEF) acutece2023 8:58amCoronary artery disease involving kake coronary artery of kake heart wiacutece2023 8:58amNonrheumatic mitral (valve) stenosisacutecember 2023 8:58amPAD (peripheral artery disease) acuteDeceer 2023 8:58amS/P aortic valve replacement with bioprosthetic valveacutece2023 8:58amS/P CABG (coronary artery bypass graft)acute October 26, 2024 8:58amASHD (arteriosclerotic heart disease)acuteDecember 2023 2:47pm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acuteDecember 2023 2:47pmCarotid stenosis, bilateralacute October 28, 2024 2:47pmChronic heart failure with preserved ejection fraction (HFpEF)acutece2023 2:47pmHypercholesterolemiaacuteDecember 2023 2:47pmHypertensionacuteDece2023 2:47pmPrimary insomniaacute October 28, 2024 2:47pm [facility] Work Phone: 1(710) 264-500103-07-2024 NotePatient here for 1 mo follow up [...] pain. All other systems reviewed and are negative.[facility] SUB[facility] Chief Complaint Patient presents with Coronary Artery Disease Congestive Heart Failure Hypertension Hyperlipidemia Max Friedman is a 83 y.o. male here for follow-up. HPI PMHx: AVR 2014, CAD s/p CABG x1 2014, HTN, carotid stent by vascular surgeon in [place] (Dr. Cedillo) 01/15/2024 He notes that his [...] 7. Mild mitral va (more content not included)...[facility]02-07-2024 NotePatient here for 1 year follow [...] pain. All other systems reviewed and are negative.[facility] 12-17-2023 [facility]Card[facility] SUBJECTIVE No chief complaint on file. Max Friedman is a 83 y.o. male here for follow-up. HPI PMHx: AVR 2014, CAD s/p CABG x1 2015, HTN, carotid stent by vascular surgeon in [place] (Dr. Cedillo) He works out a few [...] aortic stenosis by invasive hemodynamic study. 2. Wecieuxo-ev-jjtapf two-vessel coronary artery disease involving the left anterior descending and left circumflex coronary arteries. 3. Normal right-sided heart pressures and wedge pressure. 4. Normal cardiac output/cardiac index. 5. 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 (more content not included)...[facility]01-12-2024 Evaluation note* Encounter Date Diagnosis Assessment [...] a couple years. - previously referred to [facility] Neurosurgery but declined treatment He [...] and feet daily for blisters and ulcerations. [employer] Other 11-15-2023 Evaluation note* Encounter Date Diagnosis [...] w/ serial Echocardiogram Control BP and HR [employer] Other 10-26-2023 Evaluation note* Encounter Date Diagnosis [...] pain which seems to be bothering him. [employer] Other 10-16-2023 Hospital Discharge instructions Patient Education [...] include: ?8 oz (237 mL) of milk, ppjqquq-rgskxawsmiac-poodv milk, and calcium- fortifiedfruit juice. Calcium-fortified means [...] ?Spinach (cooked), rhubarb, beets, sweet potatoes, and Hungarian chard. ?Peanuts. ?Potato chips, andorran fries, and baked potatoes with skin on. ?Nuts and nut products. ?Chocolate. If you regularly take a diuretic medicine, make sure to eat at least 1 or 2 servings of fruits or vegetables that are high in potassium each day. These include: ?Avocado. ?Banana. ?Emmet, prune, carrot, or tomato juice. ?Baked potato. [...] magnesium, fish oil, or vitamin B6. Take knto-afk-xuleufg and prescription medicines only as told by [...] Casseroles. Pizza. Lasagna. Frozen meals. Potato chips. Palestinian fries. The items listed above may not [...] provider. Document Revised: 07/08/2022 Document Reviewed: 07/08/2022 [employer] Patient Education 2022 Hobby. Follow Up Care 05/30/2023 13:07:47 With:REINIER HUSAIN, Salome Jaramillo, URL Address: [facility] [address], [place] [address]- When:Within 1 Year(s) Comments:w/MELQUIADES [facility] 05-15-2023 Evaluation note* Encounter Date Diagnosis [...] March,High risk medication use (ICD-10 - Z79.899) [employer] Other 06-20-2022 Evaluation note* Encounter Date Diagnosis [...] agrees with this plan, denies any questions. [employer] Other 06-10-2022 Hospital Discharge instructions Patient Education 04/19/2022 10:54:30 Kidney Stones, Ipgs-vh-Wtpp Kidney Stones Kidney stones are rock-like masses [...] Follow these instructions at home: Medicines Take mzqd-mre-btavoxt and prescription medicines only as told by [...] 04/14/2009 Document Revised: 03/14/2020 Document Reviewed: 03/14/2020 [employer] Patient Education 2019 [employer] Follow Up Care 08/27/2021 10:53:23 With:REINIER HUSAIN, Salome Jaramillo, URL Address: [facility] [address], [place] [address]- [phone] When:04/19/2023 [facility] evaluation + Plan note Future Appointments Appointment Date:04/21/2023 09:45:00 AM Scheduled Provider:Salome HILLS MD Location:[facility] Appointment Type:URO Office Visit [facility] evaluation + Plan note Future Appointments Appointment Date:08/30/2024 10:30:00 AM Scheduled Provider:Salome HILLS MD Location:[facility] Appointment Type:URO Office Visit [facility] evaluation + Plan note Future Appointments Appointment Date:09/26/2025 10:30:00 AM Scheduled Provider:Salome HILLS MD Location:[facility] Appointment Type:URO Office Visit [facility] evaluation noteNo assessment information available [facility] Work Phone: Evaluation note* Diagnosis Onset Date Resolution Status Viral URI acute [facility], [facility] Work Phone: Evaluation noteNo InformationNomid miss[facility] [employer] Other Evaluation note* Diagnosis Onset Date Resolution Status 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 acuteLeft foot dropacuteLumbar radiculopathy, chronicacuteSacroiliitis, not elsewhere classifiedacuteASHD (arteriosclerotic heart disease)acute 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acute Carotid stenosis, bilateralacuteChronic kidney diseaseacuteHypercholesterolemia acuteHypertensionacuteLumbar spondylosis with myelopathyacuteMedicare annual wellness visit, subsequentnoneactive [facility] Work Phone: evaluation note* Diagnosis Onset Date Resolution Status ASHD (arteriosclerotic heart disease) acute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 acuteCarotid stenosis, bilateralacuteChronic kidney diseaseacute HypercholesterolemiaacuteHypertensionacuteLumbar spondylosis with myelopathy acuteMedicare annual wellness visit, subsequentnoneactiveHistory of left common carotid artery stent placementacute [facility] Work Phone: evaluation note* Diagnosis Onset Date Resolution Status History of left common carotid artery st ent placement acuteASHD (arteriosclerotic heart disease)acute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acuteCarotid stenosis, bilateralacute Chronic kidney diseaseacuteHypercholesterolemiaacuteHypertensionacuteLumbar spondylosis with myelopathyacute [facility] Work Phone: evaluation note* Diagnosis Onset Date Resolution Status ASHD (arteriosclerotic heart disease) acute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 acuteCarotid stenosis, bilateralacuteChronic heart failure with preserved ejection fraction (HFpEF)acuteChronic kidney diseaseacuteHypercholesterolemia acuteHypertensionacuteLumbar spondylosis with myelopathyacuteNonrheumatic mitral (valve) stenosisacute [facility] Work Phone: evaluation note* Diagnosis Onset Date Resolution Status ASHD (arteriosclerotic heart disease) acute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 acuteCarotid stenosis, bilateralacuteChronic heart failure with preserved ejection fraction (HFpEF)acuteChronic kidney diseaseacuteHypercholesterolemia acuteHypertensionacuteLumbar spondylosis with myelopathyacuteNonrheumatic mitral (valve) stenosisacuteASHD (arteriosclerotic heart disease)acute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acuteCarotid stenosis, bilateralacuteChronic heart failure with preserved ejection fraction (HFpEF) acuteHypercholesterolemiaacuteHypertensionacute [facility] Work Phone: evaluation note* Diagnosis Onset Date Resolution Status ASHD (arteriosclerotic heart disease) acute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 acuteCarotid stenosis, bilateralacuteChronic kidney diseaseacute HypercholesterolemiaacuteHypertensionacuteLumbar spondylosis with myelopathy acuteMedicare annual wellness visit, subsequentnoneactive [facility] Work Phone: History general Narrative - Reported* Type Description Date Medical History carotid stenosis Medical HistoryHTNSurgical Historyheart valve [id number] Historyleft internal carotid angioplasty and [id number] [employer] Other History general Narrative - Reported* Type [...] History Nonrheumatic aortic (valve) stenosisSurgical Historyheart valve [id number] Surgical Historyleft internal carotid angioplasty and [id number] History [id number] [id number] XwbeilfCQQ8291Okprczam HistoryESWL, KIDNEY, [id number] HistorySEE SURGICAL HX [employer] Other History general Narrative - Reported* Type [...] History Nonrheumatic aortic (valve) stenosisSurgical Historyheart valve [id number] Surgical Historyleft internal carotid angioplasty and oviin5711Npaqequb History [id number] VzrhvpiZBGSOJMIXDD8834Bwbcvues IuqbefkSSS5064Ovhoaxpi HistoryESWL, KIDNEY, CLVVF3807Qvshwyht HistoryESWL, right kidney05/2023 Hospitalization HistorySEE SURGICAL HX [facility] tritrue Other Hospital course Narrative No data available for this section [facility] progress note No data available for this section [facility] reason for referral (narrative)* Reason Referral for lumbar foraminal stenosis and left lower extremity weakness. 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 372) Referral Organization [facility] penny Referring Provider First Name Timbo Referring Provider Last Name Jenniffer Referring Provider Specialty Internal Me dicine Referred Organization [facility] Referred Provider Boby Mai Referred Address [address] [place],[address] Referred Provider Specialty Neurological Surgery Referral Priority [...] Notes Include recent and p revious MRI [facility] tritrue Other Reason for referral (narrative)No reason for referral information [facility] Work Phone: Chief Complaint and Reason for [...] 2024 8:58am Coronary artery disease invo lving kake coronary artery of kake heart [place] October 26, 2024 8:58am Nonrheumatic [...] 2024 8:58am Coronary artery disease invo lving kake coronary artery of [place] heart [place] October 26, 2024 8:58am Nonrheumatic [...] 07, 2024 1 2:50pm FOLLOW UP FROM [facility] December 29, 2024 10:14am Reason for Visit Admit Date PAD (peripheral artery disease) October 18, 2024 8:56am Carotid stenosis, bilateral October 8:58am Chronic heart failure with p reserved ejection fraction (HFpEF) October 26, 2024 8:58am Coronary artery disease invo lving kake coronary artery of kake heart wi October 26, 2024 8:58am Nonrheumatic mitral (valve) stenosis Dec emb2023 8:58am PAD (peripheral artery disease) October 26, 2024 8:58am 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 October 26, 2024 8:58am S/P CABG (coronary artery bypass graft) October 26, 2024 8:58am ASHD (arteriosclerotic heart disease) De coreyber 2023 2:47pm Atherosclerosis of both lowe r [...] July 29, 2025 9:59am Chronic kidney disease Phyllis 19th, 2 025 9:59am Hypercholesterolemia July 29 9:59am [...] September 15, 2025 1 :48pm Advance Directives No Advanced Directives Records Found [...] 16, 2024 End: August 16, 2024Bertha Hutchins DOAttending ProviderActiveStart: August 16, 2024 End: August 16, [...] Start: May 06, 2024 End: May 06, 2024Madeirdre Finnegan MDAttchino ProviderActiveStart: May 06, 2024 End: May 06, 2024 Team Status: Inactive Member Role Status Dates Timbo Abad DO Primary Care Provider Active Start: May 06, 2024 End: May 06, 2024Niya Baker CHANNEL MARKETING COORDINATOR-CAttending ProviderActiveStart: May 06, 2024 End: May 06, [...] Omar Abad DO Primary Care Provide r, Referring Provider Active Start: January 08, 2024 End: January 08, 2024Brisa Ireland CHANNEL MARKETING COORDINATOR-CAttending ProviderActiveStart: January 08, 2024 End: January 08, 2024 Team Status: Inactive Member Role Status Dates Timbo Abad DO Primary Care Provider Active Juan Murillo ProviderActive Team Status: Inactive Member Role Status Dates ANDERSON Almaraz Attending Provider Active Team Status: Inactive Member Role Status Dates Timbo Abad DO Primary Care Provider Active Niay Baker CHANNEL MARKETING COORDINATOR-CAttending ProviderActive Team Status: Active Member Role Status Dates Abimael Cruz MD Digital Performance Analyst Active ZEB Ludwigrimary Care ProviderActive Team Status: Inactive Member Role Status Dates Timbo Abad DO Primary Care Provider Active Start: August 25, 2024 End: August 25, 2024Ling Zain Hutchins DOAttending ProviderActiveStart: August 25, 2024 End: August 25, 2024Georyamil Cruz MDReferring ProviderActive Start: August 25, 2024 End: August 25, 2024 Team Status: Inactive Member Role Status Dates Timbo Abad DO Primary Care Provider Active Start: August 26, 2024 End: August 26, 2024Ling Zain Twodeo , DOAttending ProviderActiveStart: August 26, 2024 End: August 26, 2024 Team Status: Inactive Member Role Status Dates Timbo Abad DO Primary Care Provide r, Attending Provider Active Start: August 31, 2024 End: August 31, 2024 Team Status: Inactive Member Role Status Dates Timbo Abad DO Primary Care Provider Active Start: September 15, 2024 End: September 15, 2024Jaylon Finnegan MDAttchino ProviderActiveStart: September 15, 2024 End: September 15, 2024 Team Status: Active Member Role Status Dates Timbo Abad DO Primary Care Provider Active Start: May 06, 2024 Niya Baker NP-CAttendarvin ProviderActiveStart: May 06, 2024 Team Status: Inactive Member Role Status Dates Timbo Abad DO Primary Care Provider Active Start: October 04, 2024 End: October 04, 2024Madeirdre Finnegan MDAttchino ProviderActiveStart: October 04, 2024 End: October 04, 2024 Team Status: Active Member Role Status Dates Timbo Abad DO Primary Care Provider Active Start: October 04, 2024 Juan Murillo Provider, Other ProviderActiveStart: October 04, 2024 Team Status: Inactive Member Role Status Dates Timbo Abad DO Primary Care Provider Active Start: October 18, 2024 End: October 18, 2024Juan Murillo ProviderActiveStart: October 18, 2024 End: October 18, 2024 Team Status: Active Member Role Status Dates Timbo Abad DO Primary Care Provider Active Start: October 18, 2024 Juan Murillo Provider, Other ProviderActiveStart: October 18, 2024 Team [...] Start: December 07, 2024 End: December 07, 2024Niya Bakre CHANNEL MARKETING COORDINATOR-CAttending ProviderActiveStart: December 07, 2024 End: December 07, 2024 Team Status: Inactive Member Role Status Dates Timbo Abad DO Primary Care Provider Active Start: December 29, 2024 End: December 29, 2024Jaylon Finnegan MDAttchino ProviderActiveStart: December 29, 2024 End: December 29, 2024 Team Status: Inactive Member Role Status Dates Timbo Abad DO Primary Care Provider Active Start: March 18, 2025 End: March 18micaela Abad DOAttchino ProviderActiveStart: March 18, 2025 End: March 18, 2025 Team Status: Active Member Role Status Dates Timbo Abad DO Primary Care Provider Active Start: March 25, 2025 Nan Ludwig ProviderActiveStart: March 25, 2025 Team Status: Inactive Member Role Status Dates Timbo Abad DO Primary Care Provider Active Start: May 12, 2025 End: May 12, 2025Madeirdre Finnegan MDAttchino ProviderActiveStart: May 12, 2025 End: May 12, 2025 Team Status: Active Member Role Status Dates Timbo Ball , DO Primary Care Provider Active Start: May 12, 2025 Jaylon Finnegan MDAttending ProviderActiveStart: May 12, 2025 Team Status: Inactive Member Role Status Dates Timbo Abad DO Primary Care Provider Active Start: July 29, 2025 End: July 29enkatina Jenniffer , DOAttending ProviderActiveStart: July 29, 2025 End: July 29, 2025 Team Status: Active Member Role Status Dates Timbo Abad DO Primary Care Provider Active Start: July 30, 2025 Timbo Jenniffer DOAttending ProviderActiveStart: July 30, 2025 Team Status: Inactive Member Role Status Dates Timbo Abad DO Primary Care Provider Active Start: August 18, 2025 End: August 18aditya Degroot MDAttending ProviderActiveStart: August 18, 2025 End: August 18, 2025 Team Status: Active Member Role/Relationship Status Dates Abimael Cruz MD Digital Performance Analyst Active Timbo Abad , [facility] Care ProviderActive Team Status: Inactive Member Role/Relationship Status Dates Timbo Abad DO Primary Care Provider Active Start: July 29, 2025 End: July 29enkatina Jenniffer , DOAttending ProviderActiveStart: July 29, 2025 End: July 29, 2025 Team Status: Active Member Role/Relationship Status Dates Timbo Abad DO Primary Care Provider Active Start: July 30, 2025 Timbo Jenniffer DOAttending ProviderActiveStart: July 30, 2025 Team Status: Inactive Member Role/Relationship Status Dates Timbo Abad DO Primary Care Provider Active Start: August 18, 2025 End: August 18aditya Degroot MDAttending ProviderActiveStart: August 18, 2025 End: August 18, 2025 Team Status: Inactive Member Role/Relationship Status Dates Timbo Abad DO Primary Care Provider Active Start: September 15, 2025 End: September 15aditya Degroot MDAttending ProviderActiveStart: September 15, 2025 End: September 15, 2025 Goals (unrecognized section and content) Goals may be documented in a n alternate section REASON FOR VISIT (unrecogniz ed section and content) VASC 1 YR FU; CAROTID DUPLEX 1PWELLNESS MBNo InformationERRORMedication Clarification4 month follow up; CHING's B/L legs at 11:006 month Follow up6 month Follow upMRI resultsface to face for FREEMAN price- fax note to [phone] (unrecognized sect ion and content) No Status Records FoundNo Status Records FoundNo Status Records FoundNo Status Records FoundNo Status Records FoundNo Status Records Found INFORMATION SOURCE (unrecogn ized section and content) DATE CREATED AUTHOR 03/25/2023 [facility] DATE CREATED AUTHOR AUTHOR'S ORGANIZ ATION 01/16/2024 [facility] DATE CREATED AUTHOR AUTHOR'S ORGANIZ ATION 02/12/2024 [facility] DATE CREATED AUTHOR AUTHOR'S ORGANIZ ATION 08/18/2025 [facility] DATE CREATED AUTHOR AUTHOR'S ORGANIZ ATION 09/17/2025 [facility] DATE CREATED AUTHOR AUTHOR'S ORGANIZ ATION 09/23/2025 [facility] FOR RECORDS PERTAINING TO PATIENTS [...] BE BASED ON THE PRIMARY CLINICAL RECORDS. [facility] [employer] [facility]. provides no warranty or guarantee of the accuracy or completeness of information in this document.
[2025-09-26 08:23] LABS: Alanine Aminotransferase 26 U/L (16-63); Albumin Globulin Ratio 1.0; Albumin Level 3.6 g/dL (3.4-5.0); Alkaline Phosphatase 70 U/L (46-116); Anion Gap 12.3; Aspartate Amino Transferase 17 U/L (15-37); Blood Urea Nitrogen 22.0 mg/dL (7.0-18.0); Calcium 9.2 mg/dL (8.5-10.1); Carbon Dioxide 30.3 mmol/L (21.0-32.0); Chloride 105 mmol/L (98-107); Cholesterol 128 mg/dL (<=200); Estimated GFR (African America >60 (>=60 mL/min/1.73m^2); Estimated GFR (Non-African Ame 52 (>=60 mL/min/1.73m^2); Globulin 3.5 g/dL; Glucose 117 mg/dL (74-106); HDL Cholesterol 62 mg/dL (40-60); Potassium 3.6 mmol/L (3.5-5.1); Sodium 144 mmol/L (136-145); Total Protein 7.1 g/dL (6.4-8.2); Triglycerides 57 mg/dL (<=150); VLDL CHOLESTEROL 11.4 mg/dL
== END 2025-09-26 07:21 | disposition home or self-care (01) ==
LOC: LAB 07:21
PROVIDERS: PCP Internal Medicine; Visit Provider Student in an Organized Health Care Education/Training Program
DX: I25.10 Atherosclerotic heart disease of native coronary artery without angina pectoris (principal); E78.00 Pure hypercholesterolemia, unspecified; I50.32 Chronic diastolic (congestive) heart failure; I73.9 Peripheral vascular disease, unspecified; I11.0 Hypertensive heart disease with heart failure
CPT/HCPCS: 36415; 80053; 80061

== ENCOUNTER 2025-11-08 09:07 | Outpatient (OUT) | payer MEDICARE, OTHER, SELFPAY ==
--- OUTSIDE RECORDS SUMMARY | 2025-11-08 09:14 | XMS_ITS | Clinical Summary ---
Author Organization [facility] Healthcare Address [address] [place] [address] Care Team Providers Care Air Brakes Inspector Name Role Phone Unavailable Primary Care Provider [...] RecordedSex Assigned at BirthNot on file Legal GhmUovv2001/22/2023 7:18 PM EDTGender IdentityNot on fileSexual Orientation Not on file Plan of Treatment [place] [address]
--- OUTSIDE RECORDS SUMMARY | 2025-11-08 09:14 | XMS_ITS | Clinical Summary ---
Author Organization [facility] Address [address] [place] [address] Care Team Providers Care Rolling Machine Operator Name Role Phone Timbo Baig DO Primary Care Provider [phone] Allergies No known active allergies Medications MedicationSigDispense [...] ctive Active Problems ProblemNoted DateDiagnosed DateDiastolic heart fmkddfm0912/25/2023oronary lltenfbsbesskmsl71/13/2023Former gzbfit3912/23/2022astroesophageal reflux disease 12/23/2022History of anticoagulant zprvxdl6012/23/2022Hypogonadism in male 12/23/2022Obstructive sleep apnea /26/2016Kidney stone07/22/2016 12/17/2023enign prostatic hyperplasia with urinary dfvylvwpwsv48/18/2015 Abnormal results of cardiovascular function gjrittn3510/11/2014ortic valve dsvhxejr57/02/2014enign essential loqzvwqbiaue97/02/2014Dizziness and giddiness 10/11/20141363Koxbpyp49/02/2014Peripheral vascular kfzfmts8410/11/2014Syncope and /02/2014 Family History Medical HistoryRelationNameCommentsNo Known ProblemsFatherNo Known [...] Recorded Sex Assigned at BirthNot on fileLegal CaoNgek7005/08/2022 10:50 PM EDTGender IdentityNot on fileSexual OrientationNot on file Last Filed Vital Signs Vital SignReadingTime TakenCommentsBlood Fmklqvju611/7603 11:40 AM EST Mlqey320301/15/2024 11:40 AM ESTTemperature--Respiratory Rate--Oxygen Saturation 95%01/15/2024 11:40 AM ESTInhaled Oxygen Concentration--Eyczdj56.4 kg (197 lb) 01/15/2024 11:40 AM OIKAdxtsa137.8 cm (5' 10 )01/15/2024 11:40 AM ESTBody Mass Index28.27001/15/2024 11:40 AM EST Plan of Treatment Health MaintenanceDue DateLast DoneCommentsMedicare Annual Wellness (AWV) 2Depression Lpvuefqez95/17/1954Adult Pwtmixf6305/26/1964Fall Risk Zvrujdkha70/17/2007COVID-19 Vaccine ( season)5007/30/2023, 08/04/2022, 02/21/2022, Additional history existsInfluenza Vaccine (#1) 5007/30/2023, 08/04/2022, 08/10/2021, Additional history exists Pneumococcal Vaccine: 50+ VhgjwLklyzwzzz64/12/2019, 02/16/2018Zoster Vaccines Seuhddrrh32/28/2021, 05/16/2021HIB VaccinesAged OutNo longer eligible based on [...] Friedman TypeRelation to PatientDate of BirthPhone Billing AddressPersonal/OmejhtVbal[address] [place] [address] [place] [address] Care Teams Team MemberRelationshipSpecialtyStart DateEnd Date Timbo Baig DO [address] [address] PCP - General12/23/22
--- OUTSIDE RECORDS SUMMARY | 2025-11-08 09:14 | XMS_ITS | Clinical Summary ---
Author Organization [facility] Address [address] [place] [address] Phone Care Team Providers Care Data Analyst Name Role Phone Unavailable Primary Care Provider Unavailabl e Social History Tobacco UseTypesPacks/DayYears UsedDateSmoking Tobacco: Never AssessedSex and Gender InformationValueDate RecordedSex Assigned at BirthNot on fileLegal Sex Male08/30/2024 12:27 PM EDTGender IdentityNot on fileSexual OrientationNot on file Plan of Treatment Health MaintenanceDue DateLast DoneCommentsLipid Panel1942Yearly Adult Jfcxfhbc1942DTaP/Tdap/Td Vaccines (1 - Tdap)1964Pneumococcal Vaccine (1 of 1 - PCV)1992Zoster Vaccines (1 of 2)1992RSV High Risk: (Elderly (60+) or Population) (1 - 1-dose 75+ series)2017COVID-19 Vaccine (1 - 2024- season)2025Influenza Vaccine (#1)2025HIB VaccinesAged OutNo longer eligible based on patient's age to complete this topic HPV VaccinesAged OutNo longer eligible based on patient's [...]
--- OUTSIDE RECORDS SUMMARY | 2025-11-08 09:17 | XMS_ITS | CCD ---
Author Organization [facility] CliniSynm Care Team Providers Care Right Of Way Cutter Name Role Phone TIMBO ABAD Primary Care Physician [phone] DO Timbo Abad Primary Care Provider [phone] MD Jaylon Finnegan Attending Provider Niya Baker [...] DR IZQUIERDO Consulting Unavailable HILLS ., DR MCAMHON Admitting Unavailable HILLS ., DR MCMAHON Attending Unavailable BALL, DR IZQUIERDO Primary Care Unavailable HILLS ., DR MCMAHON Consulting Unavailable SANBORN, DR IVY Jenkins Consulting Unavailable ANDERSON Ann Attending Provider DO Timbo Abad Primary Care Provider FREEMAN Baker Attending Provider Jaylon Finnegan Unavailable [phone] DO Tmibo Abad Primary Care Provider FREEMAN Baker Attending Provider TITA RIVERA Attending Unavailable TITA RIVERA Attending Unavailable NAVNEET BLANC Attending Unavailable RADHA THOMSON Referring Unavailable DO Timbo Abad Primary Care Provider FREEMAN Baker Attending Provider Ball, DO Timbo Primary Care Provider Twodeo, DO Bertha Pittman Attending Provider [phone] MD Abimael Cruz Referring Provider Ball, DO [...] Care Provider Jenniffer GARCIA, Timbo Attending Provider Dandre Degroot MD Attending Provider Timbo Abad [...] reviewed by nurse or physiciaPropensity to adverse [id number]:[place] Other (1 source)No Known Medication Allergies; Translations: [No Known Medication Allergies]Propensity to adverse reactions (disorder)[facility] Repository Medications Current Medications MedicationDrug Class(es)DatesSig (Normalized)Sig (Original)aspirin 81 mg delayed release oral tablet (20 sources)Platelet Aggregation Inhibitor, Nonsteroidal Anti-inflammatory Drug Start: 38-34-9173wwdq 1 tablet by mouth once dailyStart: 93-76-5580krha 1 mg by mouth once dailyaspirin 81 mg oral tablet mg tab(s), Oral, Daily, Refills(s) 0 Start Date: 05/17/19 Status: Orderedtake 1 tablet by mouth every twenty-four hours Aspirin 81 MG 1 tablet Orally Once a day Activeatorvastatin 80 mg oral tablet (20 sources)HMG-CoA Reductase InhibitorStart: 09-21-2024 End: 19-67-9692neiq 1 tablet by mouth once dailyStart: 04-21-2023 End: 02-65-4571enfv 1 tablet by mouth once daily in the eveningAtorvastatin 10 mg tablet Discontinued 10 MG PO January 08, 2024 12:00am September 13, 2024 10:44pm FreeTextSig: TAKE 1 TABLET EVERY EVENING; Note: Source Status: Taking; Provider: Jenniffer Izquierdo ( )cholecalciferol 0.125 mg oral capsule (16 sources)Vitamin DStart: 03-44-2584blft 1 capsule by mouth once daily citalopram 20 mg oral tablet (20 sources)Serotonin Reuptake InhibitorStart: 02-62-2356nbuy 1 tablet by mouth once dailyStart: 05-17-2019 End: 10-70-8094tehi 1 tablet by mouth once dailyCitalopram 20 mg tablet Discontinued 20 MG PO Daily January 08, 2024 12:00am March 12, 2024 3:28pmtake 1 tablet by mouth every twenty-four hoursclopidogrel 75 mg oral tablet (20 sources)P2Y12 Platelet InhibitorStart: 79-79-4443Ezsyr: 05-17-2019 End: 00-30-3386Tpmoskqabxh 75 mg tablet Discontinued 75 MG PO January 08, 2024 12:00am February 27, 2024 12:30pmfinasteride 5 mg oral tablet (20 sources)5-alpha Reductase InhibitorStart: 91-80-8566hlwl 1 tablet by mouth at bedtimeStart: 01-08-2024 End: 56-47-7327Smgkojevwxp 5 mg tablet Discontinued 5 MG PO January 08, 2024 12:00am March 12, 2024 3:28pmStart: 24-74-4543xesv 1 tablet by mouth once daily finasteride 5 mg Tab 5 mg = 1 tab(s), Oral, Daily, # 90 tab(s), Refills(s) 3, Pharmacy: [facility], 152, cm, 04/19/22 10:18:00 EDT, Height/Length Dosing, 89.2, kg, 04/19/22 10:18:00 EDT, Weight Dosing Start Date: 02/12/23 Status: OrderedFinasteride Activefolic acid 1 mg oral tablet (6 sources)Start: 07-31-2025 End: 07-65-0860nmgk 1 tablet by mouth once daily24 hr metoprolol succinate 25 mg extended release oral tablet (20 sources)beta-Adrenergic BlockerStart: 03-07-9888Lrypc: 08-16-2024 End: 85-22-6979xxqr 2 tablets by mouth twice dailyMetoprolol Succinate 25 mg tablet extended release 24 hr Discontinued 12.5 MG PO Twice daily August 16, 2024 1:25pm June 01, 2025 7:37pmStart: 19-93-0213moyi 12.5 mg by mouth twice dailyMetoprolol Succinate Active 12.5 MG PO Twice daily August 16, 2024 1:25pm Start: 06-07-2024 End: 57-22-8184Wadrbvlwyz Succinate 25 mg tablet extended release 24 hr Discontinued 0 .ROUTE .COMPLEX 90 3 June 07, 2024 8:59am August 16, 2024 1:27pm TAKE 1 TABLET DAILYStart: 06-07-2024 End: 09-72-9631Nkpynazmgt Succinate 25 mg tablet extended release 24 hr Discontinued 0 .ROUTE .COMPLEX June 07, 2024 8:59am August 16, 2024 1:27pm TAKE 1 TABLET DAILYStart: 06-07-2024 End: 97-77-3284Timzaiupjp Succinate Discontinued 0 .ROUTE .COMPLEX June 07, 2024 8:59am August 16, 2024 1:27pm TAKE 1 TABLET DAILYStart: 06-07-2024 End: 28-05-8886Hekazcrjie Succinate Discontinued 0 .ROUTE .COMPLEX June 07, 2024 9:59am August 16, 2024 2:27pm TAKE 1 TABLET DAILYStart: 06-07-2024 Metoprolol Succinate Active 0 .ROUTE .COMPLEX June 07, 2024 9:59am TAKE 1 TABLET DAILYStart: 01-08-2024 End: 89-50-2203uaqk 1 tablet by mouth every twenty-four hoursMetoprolol Succinate 25 mg tablet extended release 24 hr Discontinued MG PO January 08, 2024 12:00am June 07, 2024 8:59amStart: 01-08-2024 End: 14-16-0937Dyshhfxxkc Succinate Discontinued MG PO January 08, 2024 12:00am June 07, 2024 8:59amStart: 70-23-6576yhcc 25 mg by mouth once daily Metoprolol Tartrate Active 25 MG PO Daily October 31, 2021 1:00amStart: 62-44-7024aagdrjvqpq 25 mg ER Tab 12.5 mg = 0.5 tab(s), Oral, BID, Refills(s) 0, High blood pressure Start Date: 05/17/19 Status: Orderedtake 1 tablet by mouth once dailyMetoprolol Succinate ER 25 MG 1 tablet Orally Once a day Active Metoprolol Tartrate 25 MG TAKE 1/2 TABLET TWICE A DAY for 90 ActiveMulti Vitamin+ (2 sources)Start: 87-50-0668Uctce Vitamin+ Refill(s) 0 Start Date: 12/20/19 Status: Orderedpolysaccharide iron complex 150 mg oral capsule (3 sources)Start: 26-17-4855ccgfjqnvwuwzfxzzd potassium chloride 10 meq extended release oral tablet (20 sources)Start: 33-74-9968Epywh: 52-61-5240Yjuanmmzo Chloride (Gdt-Uure-Odp M10) 10 mEq oral tablet, extended release 10 mEq = 1 tab(s), Refills(s) 0 Start Date: 09/20/24 Status: OrderedStart: 03-15-2024 End: 75-80-3882Peswbqlnj Chloride (Klor-Con M10) 10 mEq tablet,ER particles/crystals Discontinued 10 MEQ PO Daily 90 90 3 June 30, 2024 9:34am June 02, 2025 5:51amsimvastatin 20 mg oral tablet (4 sources)HMG-CoA Reductase InhibitorStart: 83-62-7564bdbd 20 mg by mouth at bedtimeSimvastatin Active 20 MG PO bedtime October 31, 2021 1:00amtake 1 tablet by mouth every twenty-four hourstamsulosin hydrochloride 0.4 mg oral capsule (20 sources)alpha-Adrenergic BlockerStart: 73-60-5096yrel 1 capsule by mouth once dailyStart: 01-08-2024 End: 48-77-6933Cxdreutrlh 0.4 mg capsule Discontinued MG PO January 08, 2024 12:00am March 12, 2024 3:28pmStart: 01-08-2024 End: 59-88-3465Xodffwjgry Discontinued MG PO January 08, 2024 12:00am March 12, 2024 3:28pmStart: 58-51-6453uwza 1 capsule by mouth once dailytamsulosin 0.4 mg Cap 0.4 mg = 1 cap(s), Oral, Daily, # 90 cap(s), Refills(s) 3, Pharmacy: [facility], 178, cm, 08/25/23 12:26:00 EDT, Height/Length Dosing, 90, kg, 08/25/23 12:26:00 EDT, Weight Dosing Start Date: 08/25/23 Status: Orderedtake 1 capsule by mouth every twenty-four hourstorsemide 20 mg oral tablet (20 sources)Loop DiureticStart: 72-74-1690Ercsw: 10-05-2024 End: 85-89-3594zatn 1 tablet by mouth once dailyTorsemide 20 mg tablet Discontinued 20 MG PO Daily 10 10 0 October 05, 2024 2:33pm October 25, 2024 7:37amStart: 39-07-5868rbly 1 tablet by mouth once dailytorsemide 20 mg Tab 20 mg = 1 tab(s), Oral, Daily, Refills(s) 0 Start Date: 09/20/24 Status: Ordered Start: 05-14-2024 End: 56-84-6573plgd 1 tablet by mouth once dailyTorsemide 20 mg tablet Discontinued 0 .ROUTE .COMPLEX 90 1 May 18, 2024 10:37am October 05, 2024 2:34pm TAKE 1 TABLET BY MOUTH EVERY DAYStart: 04-19-2024 End: 51-83-4482jtwh 1 tablet by mouth once dailyTorsemide 20 mg tablet Discontinued 20 MG PO Daily 90 90 1 May 11, 2024 8:39am May 14, 2024 7:44am traMADol hydrochloride 50 mg oral tablet (7 sources)Opioid AgonistStart: 53-95-6477wurl 1 tablet by mouth every eight hours as needed for pain Completed/Discontinued Medications MedicationDrug Class(es)DatesSig (Normalized)Sig (Original)doxepin 6 mg oral tablet (10 sources)Tricyclic AntidepressantStart: 10-28-2024 End: 29-80-0337uxqa 1 tablet by mouth once daily at bedtime as needed for sleep Doxepin 6 mg tablet Discontinued 6 MG PO Daily at bedtime as needed for sleep 30 30 0 October 28, 2024 12:00am March 18, 2025 9:32amfurosemide 40 mg oral tablet (20 sources)Loop DiureticStart: 03-15-2024 End: 43-61-1006wjhr 1 tablet by mouth once dailyFurosemide 40 mg tablet Discontinued 40 MG PO Daily March 14, 2024 11:00pm April 21, 2024 8:59am hydroCHLOROthiazide 12.5 mg oral tablet (20 sources)Thiazide DiureticStart: 01-08-2024 End: 12-20-7656yfhw 1 tablet by mouth once daily in the morning Hydrochlorothiazide 12.5 mg tablet Discontinued 1 TAB PO Daily January 08, 2024 12:00am April 26, 2024 2:04pm FreeTextSi tablet in the morning Orally Once a day; Note: Source Status: Taking; Provider: Jenniffer Izquierdo ( )Start: 82-68-0144vrcr 1 capsule by mouth once daily hydrochlorothiazide 12.5 mg Cap 12.5 mg = 1 cap(s), Oral, Daily, # 90 cap(s), Refills(s) 3, Pharmacy: [facility], 178, cm, 08/25/23 12:26:00 EDT, Height/Length Dosing, 90, kg, 08/25/23 12:26:00 EDT, Weight Dosing Start Date: 08/25/23 Status: OrderedStart: 58-10-1580zklw 1 capsule by mouth once dailyhydrochlorothiazide 12.5 mg Cap 12.5 mg = 1 cap(s), Oral, Daily, # 90 cap(s), Refills(s) 3, Pharmacy: [facility], 152, cm, 08/27/21 10:12:00 EDT, Height/Length Dosing, 89, kg, 08/27/21 10:12:00 EDT, Weight Dosing Start Date: 12/28/21 Status: OrderedStart: 50-86-5009zwgj 12.5 mg by mouth once dailyHydrochlorothiazide Active 12.5 MG PO Daily October 31, 2021 1:00am Problems Active Problems Problem ClassificationProblemDateDocumented DateEpisodic/ChronicAcquired foot deformities (20 sources)Foot drop, left foot; Translations: [Foot-drop]EpisodicAdjustment disorders (5 sources)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; Translations: [Mixed disorders asreaction to stress]Onset: 29-64-5679Kzhnghy Calculus of urinary tract (20 sources)Kidney stone; Translations: [Calculus of kidney]Onset: 07-22-2016 EpisodicChronic kidney disease (20 sources)Chronic kidney disease; Translations: [Chronic kidney disease, unspecified]98-98-2379XdqhxwyBvrecakqmu heart failure; nonhypertensive (20 sources)Chronic diastolic (congestive) heart failure; Translations: [Acute on chronic diastolic (congestive) heart failure]Onset: 04-53-3836UdjzxswTkfzysq on above:Echo: LVEF 60-65%, normal RV size/function, LAE, diastolic dysfunction, mild MS, Mild - oronary atherosclerosis and other heart disease (20 sources)Coronary arteriosclerosis; Translations: [Atherosclerotic heart disease of [place] coronary artery without angina pectoris]Onset: 09-15-2018 02-54-0278WgtjwggZrvmyzt on above:CABG x 2014,Lexiscan Stress: no fixed or reversible defect - oronary atherosclerosis and other heart disease (3 sources)Presence of aortocoronary bypass graft; Translations: [Aortocoronary bypass status]77-33-2854RroxkpiuBtymgwjqpp and other anemia (8 sources)Anemia; Translations: [Anemia, unspecified]73-04-7382Pfnlsbhv Disorders of lipid metabolism (20 sources)Pure hypercholesterolemia; Translations: [Pure hypercholesterolemia, unspecified]Onset: 76-86-3028HlexxkcJdvoriinlitfpr and diverticulitis (5 sources)Diverticulitis of colon; Translations: [Diverticulitis of intestine, part unspecified, without perforation or abscess without bleeding]Onset: 32-14-0656BrbzdvyUdgrowdvxl disorders (3 sources)Gastroesophageal reflux kypktmi92-40-1650YxklermZbugihppy hypertension (20 sources)Hypertensive disorder; Translations: [Essential (primary) hypertension]70-73-5571EdaukrxMqlpw valve disorders (20 sources)History of aortic valve replacement; Translations: [Presence of prosthetic heart valve]Onset: 88-57-8377WxsouaoNlucvfizcxg of prostate (20 sources)Benign prostatic hypertrophy with outflow obstruction; Translations: [Benign prostatic hyperplasia with lower urinary tract symptoms]Onset: 65-41-6745RniwgzgFqgbiloxvvwzy mental health disorders (20 sources)Male erectile disorder; Translations: [Erectile dysfunction]Onset: 91-67-0480MqvvgdcTsdp disorders (18 sources)Mild recurrent major depression; Translations: [Major depressive disorder, recurrent, mild]Onset: 63-53-0764GcplsulOrbpaczyh or stenosis of precerebral arteries (20 sources)Bilateral stenosis of carotid arteries; Translations: [Occlusion and stenosis of bilateral carotid arteries]Onset: 09-18-2018 Resolved: 11-65-6484OrczwxvRtjkwik on above:US: left < 50%, right 65-70% - 04/2024Other aftercare (9 sources)H/O: high risk medication; Translations: [Other penitentiary (current) drug therapy]EpisodicOther aftercare (5 sources)Long-term current use of drug therapy; Translations: [Other penitentiary (current) drug therapy]EpisodicOther and unspecified benign neoplasm [...] loss; Translations: [Unspecified hearing loss, unspecified ear]Onset: 82-93-5318DijaosvUtfxv ear and sense organ disorders (4 sources)Impacted cerumen; Translations: [Impacted cerumen, left ear]Episodic Other ear and sense organ disorders (1 source)Impacted cerumen, left ear; Translations: [Impacted cerumen, left ear] EpisodicOther endocrine disorders (3 sources)Male iptuiqavwscv23-18-7478GvfhempTbxih injuries and conditions due to external causes (5 sources)History of fall; Translations: [History of falling]EpisodicOther male genital disorders (3 sources)Lnrznbnbk34-13-5433FdvxtdiDvgvb nutritional; endocrine; and metabolic disorders (4 sources)Overweight; Translations: [Overweight]EpisodicOther nutritional; endocrine; and metabolic disorders (4 sources)Overweight; Translations: [Overweight]EpisodicOther screening for suspected conditions (not mental disorders or infectious disease) (20 sources)Encounter for screening for malignant neoplasm of colon; Translations: [Raised TSH level]Onset: 068381-01-1524AfobmulgKzdwwkerfg and visceral atherosclerosis (20 sources)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; Translations: [Atherosclerosis of [place] arteries of extremities with intermittent claudication, bilateral [...] w/ exerciseResidual codes; unclassified (3 sources)H/O: anticoagulant sbdxlso08-71-5363KzppcezzOreewjzq codes; unclassified (20 sources)Past history of procedure; Translations: [Other specified postprocedural states]06-12-5640OhpfswjdFdeekvgg codes; unclassified (2 sources)Other specified postprocedural states; Translations: [Other postprocedural status]17-85-6478DipvwdupYgfzruyrb and history of mental health and substance abuse codes (20 sources)Ex-smoker; Translations: [History of tobacco use]Onset: 09-15-2018 85-49-5498VdcyolmfJhugvabuwbr; intervertebral disc disorders; other back problems (20 sources)Lumbar spondylosis with myelopathy; Translations: [Other spondylosis with myelopathy, lumbar region]ChronicSpondylosis; intervertebral disc disorders; other back problems (20 sources)Backache; Translations: [Unspecified backache]Onset: 09-15-2018 75-32-9854HsciyuvpCryypjs and strains (5 sources)Low back strain; Translations: [Strain of muscle, fascia and tendon of lower back, initial encounter]EpisodicThyroid disorders (11 sources)Subclinical hypothyroidism; Translations: [Other specified hypothyroidism]50-61-1975Wrmufqq Past or Other Problems Problem ClassificationProblemDateDocumented DateEpisodic/ChronicAbdominal hernia (5 sources)Inguinal hernia; Translations: [Unilateral inguinal hernia, without obstruction or gangrene, not specified as recurrent]Onset: 52-35-9250Yqbmwore Anal and rectal conditions (5 sources)Stenosis of rectum and anus; Translations: [Stenosis of rectum and anus]Onset: 11-61-6418CgzpqyijAfqkygljgh and other anemia (4 sources)Anemia due to chronic blood loss; Translations: [Iron deficiency anemia secondary to blood loss (chronic)] Resolved: 85-33-3319IhkfgmnPagquezcmd and other anemia (1 source)Iron deficiency anemia secondary to blood loss (chronic); Translations: [Iron deficiency anemia secondary to blood loss (chronic)] Resolved: 63-34-6189YogngflTnhjeaotdjvcz symptoms and ill-defined conditions (20 sources)Delay when starting to pass urine; Translations: [Increased frequency of urination]Onset: 07-22-2016 Resolved: 787499-76-7337OytiqsjlVrhdesszaujcf and screening for infectious disease (6 sources)Suspected disease caused by 2019-nCoV; Translations: [Suspected COVID-19 virus infection]Onset: 721799-39-4747TczxsahnOccgcgmvicoq conditions of male genital organs (3 sources)Prostatitis Resolved: 619021-49-7378LanjygwzLsmgwgt and fatigue (5 sources)Malaise and fatigue; Translations: [Other malaise and fatigue]Onset: 83-27-4672FtlwvnxdZsco disorders (1 source)Mood disorders; Translations: [Major depressive disorder, recurrent episode, mild]Onset: 81-49-2105Fbybu aftercare (5 sources)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; Translations: [OTH FUEL CELL DESIGNER CURRENT DRUG THERAPY]Onset: 48-67-4282HdptybkwIffxw and unspecified benign neoplasm (5 sources)Polyp of colon; Translations: [Polyp of colon]Onset: 09-15-2018 EpisodicOther circulatory disease (5 sources)Elevated blood-pressure reading without diagnosis of hypertension; Translations: [Elevated blood pressure reading without diagnosis of hypertension]Onset: 60-78-2777FetuogqgLujvh connective tissue disease (4 sources)Myalgia, unspecified site; Translations: [MYALGIA UNSPECIFIED SITE] Onset: 94-40-0983AfaksluaUahiu ear and sense organ disorders (5 sources)Disorder of external ear; Translations: [Other specified disorders of right external ear] Resolved: 78-55-5528OqvmbcrgTplqz gastrointestinal disorders (5 sources)Constipation; Translations: [Other constipation]Onset: 09-15-2018 EpisodicOther gastrointestinal disorders (4 sources)Disorder of digestive system; Translations: [Personal history of other diseases of digestive disease]Onset: 09-61-8448QfvkqfptKmdqv lower respiratory disease (4 sources)Orthopnea; Translations: [Orthopnea]Onset: 98-25-2744ZiitfkxwYsdvs lower respiratory disease (1 source)Orthopnea; Translations: [Orthopnea]Onset: 21-51-8852QcdkipydGspdk upper respiratory infections (7 sources)Viral upper respiratory tract infection; Translations: [Acute upper respiratory infection, unspecified]Onset: 090360-55-0300BgugdgljDuxccmum codes; unclassified (5 sources)H/O: risk factor; Translations: [Other specified personal history presenting hazards to health]Onset: 95-71-8905NkuycmieNqxvydznagwg (1 source)Personal history of other diseases of digestive disease; Translations: [Personal history of other diseases of digestive disease]Onset: 09-15-2018 Unclassified (1 source)Unspecified backache; Translations: [Unspecified backache]Onset: 09-15-2018 Results Test NameValueInterpretationReference RangeFacilityCT angio neckon 87-35-8226WI angio neckMER[facility] [address] [place] Scan Report Signed Patient: Max Friedman MR#: [id number] [birth year] : 1940 Acct:[id number] Age/Sex: 85 / M ADM Date: 09/15/25 Loc: CT Room: Type: [facility] Attending Dr: aDndre Degroot MD Copies to: Dandre Degroot MD Ordering Provider: Dandre Degroot MD Date of Service: 09/15/25 CT/CT angio neck: I65.23 - Occlusion and stenosis of bilateral carotid avila... ([id number]) CT/CT angio head: I65.23 - Occlusion and [...] Santoyo M.D. 09/15/2025 4:26 PM Dictation Location: [place] [address] Transcribed By: [facility] 09/15/25 1626 Dictated By: Garret Santoyo MD 09/15/25 1612 Signed By: 09/15/25 1626NoSt. Luke's Hospital Physician GroupISTAT XRay CREon 03-54-3413KVNJG GFR>60.0NoSt. Luke's Hospital Physician GroupComment on above:Result Comment: PERFORMED BY: [place] [address] PATHOLOGIST PEN AND PENCIL REPAIRER SERA NERI M.D.Performed By: #### ISCRE #### [facility] [address] [place] [address] USANo Panel InformationOrdered By: Dandre Degroot on 09-15-2025 Bedside Estimated GFR (eGFR)> 60.0[facility]riners HospitalWhole blood creatinine measurementOrdered By: Dandre Degroot on 11-52-2806Kskmewefha [Mass/Vol] 1.2 mg/dLNormal0.6-1.3FJoint Township District Memorial HospitalComment on above:ER/ESD physician is notified/shown all ISTAT results.Critical values may be confirmed by laboratorytesting ifdeemed necessary by ER attending doctor.Result Comment: ER/ESD physician is notified/shown all ISTAT results. Critical values may be confirmed by laboratory testing if deemed necessary by ER attending doctor.Performed By: #### ISCRE #### [facility] [address] [place], [place] [id number] USAUS carotid doppler RTon 48-64-6344IY carotid doppler RT [facility] [address] [place] [address] Ultrasound Report Signed Patient: Max Friedman MR#: [id number] [birth year] : 1940 Acct:[id number] Age/Sex: 85 / M ADM Date: 08/18/25 Loc: [facility] Room: Type: [facility] Attending Dr: Jaylon Finnegan MD Ordering Provider: [...] Degroot M.D. 08/18/2025 1:33 PM [facility]ictation [facility] Tech: Karina Black Transcribed By: DANIEL 08/18/25 1333 Dictated By: Dandre Degroot MD 08/18/25 1331 Signed By: 08/18/25 1333[facility] Physician [facility] General HospitalGlomerular filtration rate (GFR) estimation in non- AmericanOrdered By: Timbo Abad on 07-30-2025 GFR/1.73 sq M.predicted among non-blacks MDRD (S/P/Bld) [Vol rate/Area]58 mL/min/{1.73_m2}Low>=60 mL/min/1.73m 2FJoint Township District Memorial Hospital Laboratory - Chemistry and Chemistry - challengeOrdered By: Timbo Abad on 12-35-4479Ipalcwc [Mass/Vol]8.8 mg/dL8.5-10.1FJoint Township District Memorial Hospital Chloride [Moles/Vol]107 mmol/E25-336YizgqierqCincinnati Shriners HospitalCO2 [Moles/Vol]26.9 mmol/L21.0-32.0[facility]riners HospitalCobalamin (Vitamin B12) [Mass/Vol]1006 pg/uN448-9044LchlcodinCincinnati Shriners Hospital Comment on above:Performed at: [facility] [address] [id number] Director: Nadir Chavez PhD, Phone: [phone] [Mass/Vol]1.19 mg/dL0.70-1.30[facility]riners HospitalFerritin [Mass/Vol]49.0 ng/mL26.0-388.0[facility]riners HospitalFree T4 [Mass/Vol]0.94 ng/dL0.76-1.46[facility]riners HospitalGFR/1.73 sq M.predicted MDRD (S/P/Bld) [Vol rate/Area]mL/min/{1.73_m2}>=60 mL/min/1.73m 2 [facility]riners HospitalGlucose [Mass/Vol]109 mg/bSUeos41-142TgffxqkajCincinnati Shriners HospitalPotassium [Moles/Vol]3.8 mmol/L3.5-5.1FChildren's Hospital of Columbusodium [Moles/Vol]144 mmol/U881-399YkuwcyghwCincinnati Shriners HospitalTSH Qn5.026 m[IU]/LHigh0.358-3.740C[facility]riners HospitalUrea nitrogen [Mass/Vol]16.0 mg/dL7.0-18.0[facility]riners HospitalUrea nitrogen/Creatinine [Mass ratio]13.4 mg/mgCincinnati Shriners HospitalNo Panel InformationOrdered By: Timbo Abad on 29-96-3236Pjrxde1.50 ng/mLLow 8.60-58.90[facility] Medical Centererum or plasma anion gap determinationOrdered By: Timbo Abad on 88-40-4415Xeufs gap [Moles/Vol]13.9 mmol/LFJoint Township District Memorial HospitalUS ankle/arm indiceson 20-20-8052TM ankle/arm indicesUniversity Hospitals [facility] [address] [place] [address] Ultrasound Report Signed Patient: Max Friedman MR#: [id number] 11 : 1940 Acct:[id number] Age/Sex: 84 / M ADM Date: 05/12/25 Loc: [facility] Room: Type: [facility] Attending Dr: Jaylon Finnegan MD Ordering Provider: Jaylon Finnegan MD Date of Service: 05/12/25 US/US ankle/arm indices: I70.213 - Atherosclerosis of [place] arteries of extremiti... Copies to: Jaylon Finnegan [...] Finnegan MD,FACS,FSVS 05/12/2025 11:51 AM Dictation Location: [place] [address] Tech: Pam Sheehan Transcribed By: DANIEL 05/12/25 1151 Dictated By: Jaylon Finnegan MD 05/12/25 1151 Signed By: 05/12/25 1151[facility] Physician GroupUS carotid doppler BIon 41-83-4716ML carotid doppler [facility] [address] [place] [id number] Ultrasound Report Signed Patient: Max Friedman MR#: [id number] 11 : 1940 Acct:[id number] Age/Sex: 84 / M ADM Date: 05/12/25 Loc: [facility] Room: Type: [facility] Attending Dr: Jaylon Finnegan MD Ordering Provider: [...] Finnegan MD,FACS,FSVS 05/12/2025 11:52 AM Dictation Location: [place] [address] Tech: Merle Donaldson Transcribed By: DANIEL 05/12/25 1152 Dictated By: Jaylon Finnegan MD 05/12/25 1151 Signed By: 05/12/25 1152[facility] Physician GroupBasophils Auto (Bld) [#/Vol]on 16-98-8452Nphtewjev (Bld) [#/Vol]0.0 10 3/uL0.0-0.1FJoint Township District Memorial HospitalBasophils/100 WBC Auto (Bld)on 98-95-7084Rcchatnet/100 WBC (Bld)0.5 % 0.2-2.0[facility] HospitalCholesterol in LDL Calc [Mass/Vol]on 88-91-5274Wvwohzaufac in LDL [Mass/Vol]33.6 mg/dLCincinnati Shriners HospitalComment on above:<100 mg/dl GIMFLJQ082-135 mg/dl NEAR OR ABOVE KTRFIWC503- 159 mg/dl BORDERLINE XZVG363-984 mg/dl HIGH>190 mg/dl VERY HIGHCholesterol in VLDL Calc [Mass/Vol]on 39-99-3572Nqwtmbgfesa in VLDL [Mass/Vol]14.4 mg/dL [facility] HospitalEosinophils/100 WBC Auto (Bld)on 03-25-2025 Eosinophils/100 WBC (Bld)7.7 %High0.9-7.0[facility] Erythrocyte distribution width Auto (RBC) [Ratio]on 14-63-8050Eqrjfgheygm distribution width (RBC) [Ratio]14.4 %11.0-15.0[facility] Estimated glomerular filtration rate (GFR) non- Americanon 03-25-2025 GFR/1.73 sq M.predicted among non-blacks MDRD (S/P/Bld) [Vol rate/Area]51 mL/min/{1.73_m2}Low>=60 mL/min/1.73m 2FJoint Township District Memorial HospitalGlobulin Calc (S) [Mass/Vol]on 29-16-8025Fzpeffsr (S) [Mass/Vol]3.3 g/dLCincinnati Shriners HospitalHematocrit Auto (Bld) [Volume fraction]on 03-25-2025 Hematocrit (Bld) [Volume fraction]41.9 %Low42.0-54.0[facility] HospitalHemoglobin [Mass/volume] in Bloodon 19-80-5633Owalaiiwso (Bld) [Mass/Vol] 13.7 g/dLLow14.0-18.0[facility] HospitalLaboratory - Chemistry and Chemistry - challengeon 14-60-1420Klpmniz [Mass/Vol]3.5 g/dL3.4-5.0[facility] HospitalALP [Catalytic activity/Vol]70 U/K35-939IsyrlvlniCincinnati Shriners HospitalALT [Catalytic activity/Vol]23 U/G59-66QssyxacbtCincinnati Shriners HospitalAST [Catalytic activity/Vol]17 U/F66-20UegaiiohtCincinnati Shriners HospitalBilirubin [Mass/Vol]0.7 mg/dL0.2-1.0[facility] Calcium [Mass/Vol]9.3 mg/dL8.5-10.1FJoint Township District Memorial HospitalChloride [Moles/Vol]106 mmol/S96-994OhaiyiyouCincinnati Shriners HospitalCholesterol [Mass/Vol]106 mg/dL<=200[facility] HospitalCholesterol in HDL [Mass/Vol]58 mg/zK34-04VlpgpgycgCincinnati Shriners HospitalComment on above:> or =60 mg/dl - LOW CARDIOVASCULAR RISK<40 mg/dl - HIGH CARDIOVASCULAR RISKCO2 [Moles/Vol]32.9 mmol/LHigh21.0-32.0[facility] HospitalCreatinine [Mass/Vol]1.34 mg/dLHigh0.70-1.30[facility] HospitalFree T4 [Mass/Vol]0.95 ng/dL0.76-1.46[facility] HospitalGFR/1.73 sq M.predicted MDRD (S/P/Bld) [Vol rate/Area]mL/min/{1.73_m2}>=60 mL/min/1.73m 2 [facility] HospitalGlucose [Mass/Vol]108 mg/cVIfgu63-137ZfgwkajlbCincinnati Shriners HospitalPotassium [Moles/Vol]4.2 mmol/L3.5-5.1FJoint Township District Memorial HospitalProtein [Mass/Vol]6.8 g/dL6.4-8.2FJoint Township District Memorial Hospital Sodium [Moles/Vol]144 mmol/G905-753UjgvdqnehCincinnati Shriners HospitalTriglyceride [Mass/Vol]72 mg/dL<=150C[facility] HospitalTS Qn4.515 m[IU]/LHigh 0.358-3.740[facility] HospitalUrea nitrogen [Mass/Vol]20.0 mg/dL High7.0-18.0[facility] HospitalUrea nitrogen/Creatinine [Mass ratio]14.9 mg/mgCincinnati Shriners HospitalLaboratory - Hematology and Cell countson 96-15-2596Eavxewtj granulocytes/100 WBC (Bld)0.2 %0.0-0.5FJoint Township District Memorial HospitalLeukocytes [#/volume] corrected for nucleated erythrocytes in Blood by Automated counon 43-38-9173JKB corrected for nucl RBC Auto (Bld) [#/Vol]5.8 10 3/uL4.0-11.0[facility] Lymphocytes Auto (Bld) [#/Vol]on 27-37-3150Wonotjvveqg (Bld) [#/Vol]1.5 10 3/uL 1.2-3.8[facility] HospitalLymphocytes/100 WBC Auto (Bld)on 02-68-8631Ritvfofohom/100 WBC (Bld)25.3 %20.5-60.0[facility] HospitalMCH Auto (RBC) [Entitic mass]on 72-14-0824DOD (RBC) [Entitic mass]30.6 pg 25.9-34.0[facility] HospitalMCHC Auto (RBC) [Mass/Vol]on 71-60-3579JCHT (RBC) [Mass/Vol]32.7 g/dL29.9-35.2FJoint Township District Memorial HospitalMCV Auto (RBC) [Entitic vol]on 75-39-0437BOG (RBC) [Entitic vol]93.7 fL 80.0-94.0[facility] HospitalMonocytes Auto (Bld) [#/Vol]on 78-39-3118Uheeqjvmp (Bld) [#/Vol]0.5 10 3/uL0.3-0.8[facility] HospitalMonocytes/100 WBC Auto (Bld)on 56-45-5394Vcbrjqgqu/100 WBC (Bld)9.3 % 1.7-12.0[facility] HospitalNeutrophils Auto (Bld) [#/Vol]on 26-55-5974Huxpixvceth (Bld) [#/Vol]3.3 10 3/uL1.4-6.5FJoint Township District Memorial HospitalNeutrophils/100 WBC Auto (Bld)on 32-65-0581Ffyvsgmvatw/100 WBC (Bld)57.0 % 43.0-75.0[facility] HospitalNo Panel Informationon 03-25-2025 Eosinophils # (Auto)0.5 10 3/uL0.0-0.7FJoint Township District Memorial HospitalImmature Granulocyte # (Auto)0.01 10 3/uL0.00-0.03[facility] Platelet mean volume Auto (Bld) [Entitic vol]on 66-16-5080Sbqxcgom mean volume (Bld) [Entitic vol]11.5 fL9.5-13.5FJoint Township District Memorial HospitalPlatelets Auto (Bld) [#/Vol]on 36-09-6848Owltpgsdn (Bld) [#/Vol]197 10 3/dF208-422 [facility] HospitalRBC Auto (Bld) [#/Vol]on 28-88-5071PFA (Bld) [#/Vol]4.47 10 6/uLLow4.70-6.10[facility] Medical Centererum or plasma albumin/globulin mass ratioon 64-05-5742Elwsuju/Globulin [Mass ratio]1.1 {ratio} [facility] Medical Centererum or plasma anion gap determinationon 37-97-9589Tmqcb gap [Moles/Vol]9.3 mmol/LFChildren's Hospital of Columbuserum or plasma total cholesterol/high density lipoprotein (HDL) cholesterol mass rat on 02-07-4625Mlgcuvwrbxw.total/Cholesterol in HDL [Mass ratio]1.8 {ratio} [facility] HospitalComment on above:3.3 - 4.4 LOW RISK4.4 - 7.1 AVERAGE RISK7.1 - 11.0 MODERATE RISK>11.0 HIGH RISKUS art pvr/post Yadi 71-71-1624MB art pvr/post [facility] [place] [address] Ultrasound Report Signed with Addenda Patient: Max Friedman MR#: [id number] 11 : 1940 Acct:[id number] Age/Sex: 84 / M ADM Date: 12/07/24 Loc: Room: Type: [facility] Attending Dr: Niya Baker DEVELOPMENT WRITER-C Ordering Provider: Niya Baker APRN Date of Service: 12/07/24 US/US art pvr/post LE: I70.213 - Atherosclerosis of [place] arteries of extremiti... Copies to: Niya Baker APRN ADDENDUM 1 The right lower extremity exhibited severe disease and critical limb ischemia with ambulation. The right lower extremity CHING dropped to 0.32 during the exercise study. This is considered severe ischemia. Impression dictated by: Jaylon Finnegan MD12/15/2024 5:07 PM Dictation Location: [place] [address] Addendum Dictated By: Jaylon Finnegan MD Addendum [...] Jaylon Finnegan MD12/08/2024 11:26 AM Dictation Location: [place] [address] Tech: Sugey Diaz Transcribed By: DANIEL 12/08/24 1126 Dictated By: Jaylon Finnegan MD 12/08/24 1122 Signed By: 12/08/24 [facility] Physician GroupUS UNI ankle/arm indices 19-22-7764DE UNI ankle/arm indicesMERCY HEALTH [facility] Main [address] [place] [address] Ultrasound Report Signed Patient: Max Friedman MR#: [id number] 11 : 1940 Acct:[id number] Age/Sex: 84 / M ADM Date: 10/18/24 Loc: Room: Type: [facility] Attending Dr: Jaylon Finnegan MD Ordering Provider: aJylon Finnegan MD Date of Service: 10/18/24 US/US [...] Ricky Stephens M.D.10/19/2024 10:37 AM Dictation Location: [place] [address] Tech: Pam Sheehan Transcribed By: DANIEL 10/19/24 1037 Dictated By: Ricky Stephens MD 10/19/24 1035 Signed By: 10/19/24 1037[facility] Physician [facility] HospitalBlood Urea Nitrogenon 10-04-2024 Urea nitrogen [Mass/Vol]21 mg/dLNormalSt. Luke's Jerome Physician [facility] General HospitalComment on above:Performed By: #### CREAT, BUN #### [place] [address] USACreatinineon 37-36-0570Fdcxsxrpbc [Mass/Vol]1.40 mg/dLHigh 0.70-1.30The [facility] Physician GroupComment on above:Performed By: #### CREAT, BUN #### [place] [address] USACreatinine Clr Calc Hbmpheyf10.56NoSt. Luke's Hospital Physician [facility] General HospitalComment on above:Result Comment: PERFORMED BY: [place] [address] PATHOLOGIST PEN AND PENCIL REPAIRER DK JONES M.D.Performed By: #### CREAT, BUN #### [place] [address] USAEstimated GFR50.182 mL/MinNoSt. Luke's Hospital Physician [facility] HospitalComment on above:Performed By: #### CREAT, BUN #### [place] [address] USACreatinine [Mass/volume] in Serum or PlasmaOrdered By: Jaylon Finnegan on 57-51-1121Wdxwjsqcar [Mass/Vol]Creatinine [Mass/volume] in Serum or PlasmaHigh0.70-1.30[facility] HospitalNo Panel InformationOrdered By: Jaylon Finnegan on 64-02-4481Rutwnxkdd GFR (CKD-EPI) 50.182 mL/MinCincinnati Shriners HospitalPharmacy Creatinine Clearance (Chem45.56[facility]ers HospitalUS UNI ankle/arm indiceson 10-04-2024 [place] UNI ankle/arm indicesMERCY HEALTH [facility] [address] Ultrasound Report Signed Patient: Max Friedman MR#: [id number] 11 : 1940 Acct:[id number] Age/Sex: 84 / M ADM Date: 10/04/24 Loc: Room: Type: [facility] Attending Dr: Jaylon Finnegan MD Ordering [...] Jaylon Finnegan MD10/04/2024 3:03 PM Dictation Location: [place] [address] Tech: Mercedes Bella Transcribed By: DANIEL 10/04/24 1503 Dictated By: Jaylon Finnegan MD 10/04/24 1502 Signed By: 10/04/24 1503[facility] Physician GroupUrea nitrogen [Mass/volume] in Serum or PlasmaOrdered By: Jaylon Finnegan on 05-35-4182Iopx nitrogen [Mass/Vol]Urea nitrogen [Mass/volume] in Serum or Plasma06-03[facility] HospitalUrology Office/Clinic Noteon 87-46-2112Ajetwsg Office/Clinic Note Urology Office/Clinic Note Chief Complaint [...] [facility] [address], [place] [phone] Additional Instructions: 1 yr w/ KUB Patient Education Kidney Stones, Wwrl-nq-Hydr Babiat Alejo, personally scribed for Dr. Hills on [...] 0.5 tab(s), Oral, BID (more content not included)...[facility] HospitalComment on above:Result Comment: Electronically Signed By: Salome HILLS MD\.br\Date and Time Signed: 09/20/24 12:15 EST\.br\Electronically Co-Signed By: Babita Andrade.br\Date and Time Co-Signed: 09/20/24 12:14 ESTEstimated glomerular filtration rate (GFR) non- Americanon 80-10-9300EQK/1.73 sq M.predicted among non-blacks MDRD (S/P/Bld) [Vol rate/Area]49 mL/min/{1.73_m2}Low>=60[facility] HospitalLaboratory - Chemistry and Chemistry - challengeon 46-83-0501Tcsotdx [Mass/Vol]9.2 mg/dL8.5-10.1FJoint Township District Memorial HospitalChloride [Moles/Vol] 99 mmol/N06-650EocpmlicpCincinnati Shriners HospitalCO2 [Moles/Vol]31.3 mmol/L 21.0-32.0[facility] HospitalCreatinine [Mass/Vol]1.39 mg/dLHigh 0.70-1.30[facility] HospitalGFR/1.73 sq M.predicted MDRD (S/P/Bld) [Vol rate/Area]59 mL/min/{1.73_m2}Low>=60[facility] Glucose [Mass/Vol]94 mg/lA24-477OgpxmikpsCincinnati Shriners HospitalNatriuretic peptide B (Bld) [Mass/Vol]98.0 pg/mL<=1800.0[facility] Potassium [Moles/Vol]3.0 mmol/LLow3.5-5.1FChildren's Hospital of Columbusodium [Moles/Vol]140 mmol/L986-225NpqxuxlzaCincinnati Shriners HospitalUrea nitrogen [Mass/Vol]30.0 mg/dLHigh7.0-18.0[facility] HospitalUrea nitrogen/Creatinine [Mass ratio]21.6 mg/mgUniversity Hospitals Portage Medical Centererum or plasma anion gap determinationon 02-25-8388Iwfuw gap [Moles/Vol]12.7 mmol/L [facility] HospitalLaboratory - Chemistry and Chemistry - challengeon 69-59-9974Rmlv T4 [Mass/Vol]0.79 ng/dL0.76-1.46[facility] HospitalTSH Qn5.269 m[IU]/LHigh0.358-3.740[facility] HospitalNo Panel Informationon 33-52-7824Bmlnc Kctgmztejzjwiwii66 ng/nT74-052 [facility] HospitalComment on above:Performed at: - Lab[address] [id number] Director: Nadir Chavez PhD, Phone: [phone] Auto (Bld) [#/Vol]on 41-19-3582Luqlnsbnj (Bld) [#/Vol]0.0 10 3/uL0.0-0.1FJoint Township District Memorial HospitalBasophils/100 WBC Auto (Bld)on 37-66-6677Ggcjfmbxh/100 WBC (Bld)0.6 %0.2-2.0[facility] HospitalCholesterol in LDL Calc [Mass/Vol]on 20-56-3120Ajzcnsfrost in LDL [Mass/Vol]67.2 mg/dLCincinnati Shriners HospitalComment on above:<100 mg/dl CASRDVC491-798 mg/dl NEAR OR ABOVE HZSVPYK719-684 mg/dl BORDERLINE RMXQ105-354 mg/dl HIGH>190 mg/dl VERY HIGHCholesterol in VLDL Calc [Mass/Vol]on 04-07-2024 Cholesterol in VLDL [Mass/Vol]23.8 mg/dLCincinnati Shriners Hospital Eosinophils/100 WBC Auto (Bld)on 45-65-0332Ctbgsibehbq/100 WBC (Bld)9.8 %High 0.9-7.0[facility] HospitalErythrocyte distribution width Auto (RBC) [Ratio]on 02-66-2994Gskdgsmxhli distribution width (RBC) [Ratio]14.0 % 11.0-15.0[facility] HospitalEstimated glomerular filtration rate (GFR) non- Americanon 06-39-4726BPL/1.73 sq M.predicted among non-blacks MDRD (S/P/Bld) [Vol rate/Area]55 mL/min/{1.73_m2}Low>=60[facility] HospitalGlobulin Calc (S) [Mass/Vol]on 61-51-6064Knecwqrm (S) [Mass/Vol] 3.8 g/dLCincinnati Shriners HospitalHematocrit Auto (Bld) [Volume fraction] on 77-56-6902Vuhosutgbh (Bld) [Volume fraction]44.7 %42.0-54.0[facility] HospitalHemoglobin [Mass/volume] in Bloodon 31-43-4446Afnahrvlvf (Bld) [Mass/Vol]14.3 g/dL14.0-18.0[facility] HospitalLaboratory - Chemistry and Chemistry - challengeon 29-15-0394Dteaufa [Mass/Vol]3.4 g/dL 3.4-5.0[facility] HospitalALP [Catalytic activity/Vol]67 U/L46-116 [facility] HospitalALT [Catalytic activity/Vol]22 U/L16-63 [facility] HospitalAST [Catalytic activity/Vol]20 U/L15-37 [facility] HospitalBilirubin [Mass/Vol]1.0 mg/dL0.2-1.0[facility] HospitalCalcium [Mass/Vol]8.9 mg/dL8.5-10.1FJoint Township District Memorial HospitalChloride [Moles/Vol]103 mmol/E56-761TaxacwkimCincinnati Shriners HospitalCholesterol [Mass/Vol]150 mg/dL<=200[facility] Cholesterol in HDL [Mass/Vol]59 mg/mI18-26QqebavuvsCinc[facility] Shriners Hospital Comment on above:> or =60 mg/dl - LOW CARDIOVASCULAR RISK<40 mg/dl - HIGH CARDIOVASCULAR RISKCO2 [Moles/Vol]29.8 mmol/L21.0-32.0[facility] HospitalCreatinine [Mass/Vol]1.26 mg/dL0.70-1.30[facility] GFR/1.73 sq M.predicted MDRD (S/P/Bld) [Vol rate/Area]mL/min/{1.73_m2}>=60 [facility] HospitalGlucose [Mass/Vol]109 mg/kDAybh86-545IpollrayoCincinnati Shriners HospitalNatriuretic peptide B (Bld) [Mass/Vol]104.0 pg/mL<=1800.0 [facility] HospitalPotassium [Moles/Vol]3.4 mmol/LLow3.5-5.1 [facility] HospitalProtein [Mass/Vol]7.2 g/dL6.4-8.2FChildren's Hospital of Columbusodium [Moles/Vol]140 mmol/P883-586IraxqnketCincinnati Shriners HospitalTriglyceride [Mass/Vol]119 mg/dL<=150C[facility] HospitalTSH Qn8.383 m[IU]/LHigh0.358-3.740[facility] HospitalUrea nitrogen [Mass/Vol]21.0 mg/dLHigh7.0-18.0[facility] HospitalUrea nitrogen/Creatinine [Mass ratio]16.7 mg/mgCincinnati Shriners Hospital Laboratory - Hematology and Cell countson 93-95-9521Byrptgpm granulocytes/100 WBC (Bld)0.4 %0.0-0.5FJoint Township District Memorial HospitalLeukocytes [#/volume] corrected for nucleated erythrocytes in Blood by Automated counon 76-99-4684AMC corrected for nucl RBC Auto (Bld) [#/Vol]5.2 10 3/uL4.0-11.0[facility] HospitalLymphocytes Auto (Bld) [#/Vol]on 85-47-5843Hvscwszqori (Bld) [#/Vol]1.5 10 3/uL1.2-3.8[facility] HospitalLymphocytes/100 WBC Auto (Bld)on 29-67-9758Ejkljosozjh/100 WBC (Bld)28.6 %20.5-60.0[facility] HospitalH Auto (RBC) [Entitic mass]on 49-78-1240XWD (RBC) [Entitic mass]30.2 pg25.9-34.0[facility] HospitalMCHC Auto (RBC) [Mass/Vol]on 82-31-2949IJNP (RBC) [Mass/Vol]32.0 g/dL29.9-35.2FJoint Township District Memorial HospitalMCV Auto (RBC) [Entitic vol]on 72-09-3287KCW (RBC) [Entitic vol] 94.5 gYHlfc72.0-94.0[facility] HospitalMonocytes Auto (Bld) [#/Vol]on 75-76-8484Jsvryusnd (Bld) [#/Vol]0.6 10 3/uL0.3-0.8[facility] HospitalMonocytes/100 WBC Auto (Bld)on 27-90-5673Lnsunclfe/100 WBC (Bld) 11.7 %1.7-12.0[facility] HospitalNeutrophils Auto (Bld) [#/Vol]on 57-38-8944Mrlnpmpdeyq (Bld) [#/Vol]2.6 10 3/uL1.4-6.5FJoint Township District Memorial HospitalNeutrophils/100 WBC Auto (Bld)on 58-13-4367Yafwhlmouso/100 WBC (Bld)48.9 % 43.0-75.0[facility] HospitalNo Panel Informationon 04-07-2024 Eosinophils # (Auto)0.5 10 3/uL0.0-0.7FJoint Township District Memorial HospitalImmature Granulocyte # (Auto)0.02 10 3/uL0.00-0.03[facility] Platelet mean volume Auto (Bld) [Entitic vol]on 97-50-0271Zwwgqnjr mean volume (Bld) [Entitic vol]11.2 fL9.5-13.5FJoint Township District Memorial HospitalPlatelets Auto (Bld) [#/Vol]on 21-47-7311Ukooybebi (Bld) [#/Vol]196 10 3/nX747-371 [facility] HospitalRBC Auto (Bld) [#/Vol]on 97-07-7269QEA (Bld) [#/Vol]4.73 10 6/uL4.70-6.10[facility] Medical Centererum or plasma albumin/globulin mass ratioon 28-73-1502Mcdajmo/Globulin [Mass ratio]0.9 {ratio} [facility] Centererum or plasma anion gap determinationon 92-64-4108Mqwwv gap [Moles/Vol]10.6 mmol/LFChildren's Hospital of Columbuserum or plasma total cholesterol/high density lipoprotein (HDL) cholesterol mass rat on 38-46-3445Kjdjhzakyjp.total/Cholesterol in HDL [Mass ratio]2.5 {ratio} [facility] HospitalComment on above:3.3 - 4.4 LOW RISK4.4 - 7.1 AVERAGE RISK7.1 - 11.0 MODERATE RISK>11.0 HIGH PTPN29nr *You can take lasix as needed. Take if you develop worsening shortness of breath, abdominal bloating, leg swelling, or weight gain of 2-3lbs in a day or 5lbs in a week. Can take for 3 days or until weight or symptoms improve. *When you take lasix, take potassium with it. *Follow-up with vascular in [place] for your leg weakness and painNormal [facility] CenterOffice Visiton 19-19-7580Itniku-up visit [id number] Max Friedman 1940 M Date Provider Department Center 01/15/2024 TITA STEWART [facility] Family History Problem Relation Age of Onset No Known Problems Mother No Known Problems Father Family Status - Relation Status Age at Mother Father Level of Service:[address] [place] OFFICE/OUTPATIENT ESTABLISHED MOD MDM 30 MIN Reason for Visit and Comments: Coronary Artery Disease [187] Congestive Heart Failure [127] Hypertension [731692] Hyperlipidemia [182]NormalUnCincinnati Children's Hospital Medical Center36on Regarding labs from 12/26/2023: Tita Rivera, SANG Franco MA Please let him know his labs show his kidney function is stable. Continue current meds. Thanks LM on patient's VM.NormalUnCincinnati Children's Hospital Medical CenterEstimated glomerular filtration rate (GFR) non- Americanon 63-59-6677XZY/1.73 sq M.predicted among non-blacks MDRD (S/P/Bld) [Vol rate/Area]58 mL/min/{1.73_m2}>=60[facility] HospitalLaboratory - Chemistry and Chemistry - challengeon 68-50-7845Afdkbqg [Mass/Vol]9.3 mg/dL8.5-10.1FJoint Township District Memorial Hospital Chloride [Moles/Vol]101 mmol/E54-149NqkzdwrtmCincinnati Shriners HospitalCO2 [Moles/Vol]28.4 mmol/L21.0-32.0[facility] HospitalCreatinine [Mass/Vol]1.21 mg/dL0.70-1.30[facility] HospitalGFR/1.73 sq M.predicted MDRD (S/P/Bld) [Vol rate/Area]mL/min/{1.73_m2}>=60[facility] HospitalGlucose [Mass/Vol]117 mg/hF36-836IlxnattavCincinnati Shriners Hospital Potassium [Moles/Vol]3.9 mmol/L3.5-5.1FChildren's Hospital of Columbusodium [Moles/Vol]138 mmol/S612-382BnyrhmyuaCincinnati Shriners HospitalUrea nitrogen [Mass/Vol]19.0 mg/dL7.0-18.0[facility] HospitalUrea nitrogen/Creatinine [Mass ratio]15.7 mg/mgUniversity Hospitals Portage Medical Centererum or plasma anion gap determinationon 94-41-4047Zzkjy gap [Moles/Vol]12.5 mmol/L [facility]37on *Start taking lasix 40mg daily along with potassium supplements. *Have labs done around 12/26/2023. *Monitor your weight daily, first thing in the morning after you use the bathroom and before you eat breakfast. *Try to not drink more than 2000ml of fluids a day *Limit sodium/salt intakeNormalUniversity Wadsworth-Rittman HospitalOffice Visiton 65-70-0983Hmahyf-up [id number] Max Friedman 1940 M Date Provider Department Center 12/17/2023 TITA STEWART [facility] Family History Problem Relation Age of Onset No Known Problems Mother No Known Problems Father Family Status - Relation Status Age at Mother Father Level of Service:01414 [place] OFFICE/OUTPATIENT ESTABLISHED MOD MDM 30 [facility] CenterLaboratory - Microbiology and Antimicrobial susceptibilityOrdered By: Aury Ann on 04-12-2023S. pyogenes Ag IA Ql (Unsp spec)[facility] HospitalNo Panel InformationOrdered By: Aury Ann on 20-60-8955Yzj BFProMedica Flower HospitalCBC AUTO DIFFon 30-29-9078AZKE #0.0 103/ulNormal0.0-0.1The Lutheran HospitalComment on above:Performed By: #### CBC #### [facility] [address] [address] [address] Giacomo Pinedaphils/100 WBC (Bld)0.5 %Normal0.2-2.0[facility] Comment on above:Performed By: #### CBC #### [facility] [address] [address] [address] Giacomo Foster #0.4 103/ulNormal0.0-0.7The [facility]an HospitalComment on above: Performed By: #### CBC #### [facility] [address] [place] [address] Dr. Giacomo Huntosinophils/100 WBC (Bld)7.0 %Normal0.9-7.0[facility] Comment on above:Performed By: #### CBC #### [facility] [address] [place] [address] Dr. Giacomo Huntrythrocyte distribution width (RBC) [Ratio]14.6 %Qqlkos51.0-15.0 The [facility]an HospitalComment on above:Performed By: #### CBC #### [facility] [address] [place] [address] Dr. Giacomo MaceHematocrit (Bld) [Volume fraction]46.9 %Kmffoq15.0-54.0The [facility]an HospitalComment on above:Performed By: #### CBC #### [facility] [address] [place] [address] Dr. Giacomo MaceHemoglobin (Bld) [Mass/Vol]15.1 g/qTGwpvgz94.0-18.0The [facility]an HospitalComment on above:Performed By: #### CBC #### [facility] [address] [place] [address] Dr. Giacomo Briggs #0.02 10e3/ulNormal0.00-0.03The Lutheran HospitalComment on above:Performed By: #### CBC #### [facility] [address] [place] [address] Dr. Giacomo Briggs %0.4 %Normal0.0-0.5The Lutheran HospitalComment on above: Performed By: #### CBC #### [facility] [address] [place] [address] Dr. Giacomo Sommers #1.4 103/ulNormal1.2-3.8The Lutheran HospitalComment on above:Performed By: #### CBC #### [facility] [address] [place] [address] Dr. Yilan ChangLymphocytes/100 WBC (Bld)25.3 %Fdpiro60.5-60.0The Lutheran HospitalComment on above:Performed By: #### CBC #### [facility] [address] [place] [address] Dr. Giacomo MontalvoUAL DIFF REQNONormalThe Lutheran HospitalComment on above: Performed By: #### CBC #### [facility] [address] [place] [address] Dr. Giacomo Summers (RBC) [Entitic mass]29.6 gvMjglyg37.9-34.0The Lutheran HospitalComment on above:Performed By: #### CBC #### [facility] [address] [place] [address] Dr. Giacomo Summers (RBC) [Mass/Vol]32.2 g/gDWhpcac66.9-35.2The Lutheran HospitalComment on above:Performed By: #### CBC #### [facility] [address] [place] [address] Dr. Giacomo Summers (RBC) [Entitic vol]92.0 tZHscfne93.0-94.0The Lutheran HospitalComment on above:Performed By: #### CBC #### [facility] [address] [place] [address] Dr. Giacomo Rodriguez #0.6 103/ulNormal0.3-0.8The Lutheran HospitalComment on above:Performed By: #### CBC #### [facility] [address] [place] [address] Dr. Giacomo Rootocytes/100 WBC (Bld)10.4 %Normal1.7-12.0[facility] Comment on above:Performed By: #### CBC #### [facility] [address] [place] [address] Dr. Giacoom Johansen #3.2 103/ulNormal1.4-6.5The [facility] HospitalComment on above:Performed By: #### CBC #### [facility] [address] [place] [address] Dr. Giacomo Coleophils/100 WBC (Bld)56.4 %Axufys56.0-75.0The [facility] HospitalComment on above:Performed By: #### CBC #### [facility] [address] [place] [address] Dr. Giacomo Restrepolet mean volume (Bld) [Entitic vol]10.5 fLNormal9.5-13.5The [facility] HospitalComment on above:Performed By: #### CBC #### [facility] [address] [place] [address] Dr. Giacomo MacePLT227 103/guCssrev601-336Lhd [facility] HospitalCommymich[facility] clare on above: Performed By: #### CBC #### [facility] [address] [place] [address] Dr. Giacomo MaceRBC5.10 106/ulNormal4.70-6.10The [facility] HospitalComment on above:Performed By: #### CBC #### [facility] [address] [place] [address] Dr. Giacomo MaceWBC5.7 103/ulNormal4.0-11.0The [facility] HospitalCommymich[facility] cl[facility] on above: Performed By: #### CBC #### [facility] [address] [place] [address] Dr. Giacomo NguyenID PROFILEon 62-10-8052IDQT-HDL RATIO NORMSEE [facility] CenterCommymichigan medical center clare on above:Result Comment: 3.3 - 4.4 LOW RISK 4.4 - 7.1 AVERAGE RISK 7.1 - 11.0 MODERATE RISK >11.0 HIGH RISKPerformed By: #### BMP, LIPID #### [facility] [address] [place] [address] Dr. Giacomo MaceCholesterol [Mass/Vol]219 mg/dLCritically high<=200The [facility] on above:Performed By: #### BMP, LIPID #### [facility] [address] [place] [address] Dr. Giacomo MaceCholesterol in HDL [Mass/Vol]61 mg/dLCritically boro75-91BqrKettering Health DaytonComment on above:Performed By: #### BMP, LIPID #### [facility] [address] [address] [address] Giacomo Montalvoesterol in LDL [Mass/Vol]136.4 mg/dLAvita Health SystemComment on above:Performed By: #### BMP, LIPID #### [facility] [address] [address] [address] Giacomo Marin.total/Cholesterol in HDL [Mass ratio]3.6 {ratio} NormalThe [facility] HospitalComment on above:Performed By: #### BMP, LIPID #### [facility] [address] [place] [address] Dr. Giacomo Strauss NORMAL> or = 60 mg/dl - LOW CARDIOVASCULAR RISK <40 mg/dl - HIGH CARDIOVASCULAR RISKNoClinton Memorial HospitalComment on above:Performed By: #### BMP, LIPID #### [facility] [address] [address] [address] Giacomo Morton CALC NORMALSEE BELOWNoClinton Memorial HospitalComment on above:Result Comment: <100 mg/dl OPTIMAL 100 - 129 mg/dl NEAR OR ABOVE OPTIMAL 130 - 159 mg/dl BORDERLINE HIGH 160 - 189 mg/dl HIGH >190 mg/dl VERY HIGH Performed By: #### BMP, LIPID #### [facility] [address] [place] [address] Dr. Giacomo MaceTriglyceride [Mass/Vol]108 mg/dLNormal<=150[facility] Comment on above:Performed By: #### BMP, LIPID #### [facility] [address] [place] [address] Dr. Giacomo RealLDL CALC21.6 mg/dLNoClinton Memorial HospitalComment on above: Performed By: #### BMP, LIPID #### [facility] [address] [place] [address] Dr. Giacomo MacePROF CHEM 8 (BAS METB)on 60-12-6765Mnpsw gap [Moles/Vol]9.6 mmol/LNormalKettering Health DaytonComment on above:Performed By: #### BMP, LIPID #### [facility] [address] [address] [address] Giacomo MaceCalcium [Mass/Vol]9.3 mg/dLNormal8.5-10.1[facility] Comment on above:Performed By: #### BMP, LIPID #### [facility] [address] [address] [address] Giacomo MaceChloride [Moles/Vol]104 mmol/POrmktp50-123Phd [facility] Comment on above:Performed By: #### BMP, LIPID #### [facility] [address] [address] [address] Giacomo MaceCO2 [Moles/Vol]27.8 mmol/KYjrjxa21.0-32.0[facility] Comment on above:Performed By: #### BMP, LIPID #### [facility] [address] [address] [address] Giacomo MaceCreatinine [Mass/Vol]1.08 mg/dLNormal0.70-1.30The [facility] HospitalComment on above:Performed By: #### BMP, LIPID #### [facility] [address] [address] [address] Giacomo HuntGFR-AF BELGIAN>60Normal>=60The [facility] HospitalComment on above:Performed By: #### BMP, LIPID #### [facility] [address] [address] [address] Giacomo HuntGFR-NON AF BELGIAN>60Normal>=60The [facility] HospitalComment on above:Performed By: #### BMP, LIPID #### [facility] [address] [address] [address] Giacomo MaceGlucose [Mass/Vol]111 mg/dLCritically javc85-189Cye [facility] HospitalComment on above:Performed By: #### BMP, LIPID #### [facility] [address] [place] [address] Dr. Giacomo MacePotassium [Moles/Vol]4.4 mmol/LNormal3.5-5.1The [facility] Comment on above:Performed By: #### BMP, LIPID #### [facility] [address] [address] [address] Giacomo MaceSodium [Moles/Vol]137 mmol/GQspamu182-169MjpKettering Health Dayton Comment on above:Performed By: #### BMP, LIPID #### [facility] [address] [address] [address] Giacomo Zuniga nitrogen [Mass/Vol]27.0 mg/dLCritically high7.0-18.0[facility] DaytonComment on above:Performed By: #### BMP, LIPID #### [facility] [address] [address] [address] Giacomo Zuniga nitrogen/Creatinine [Mass ratio]25.0 mg/mgNormalThOhioHealth Doctors HospitalComment on above:Performed By: #### BMP, LIPID #### [facility] [address] [address] [address] Giacomo HuntCHOCARDIRia M/2D COMPLETEon 29-03-2224YEWUHGMMNB M/2D COMPLETE Patient: MAX FRIEDMAN Exam Date: 07/09/2022 : 1940 Gender:M Ordering : TITA RIVERA [facility] Admission #: [id number] Family : DR TIMBO ABAD D.O. Order #: [id number] CLICK HERE TO VIEW EXAM ECHOCARDIOGRAM REPORT [...] by: Ilene Davis M.D. on 07/10/2022 at 14:46NormSelect Medical [facility] Clinic Rehabilitation Hospital, BeachwoodCPKon [id number] [Catalytic activity/Vol]96 U/CFzdwcd56-970Dfv [facility] HospitalComment on above:Performed By: #### CRP, CK #### [facility] [address] [place] [address] [address] Giacomo Cornelius 06-52-5901EIF [Mass/Vol]mg/LNormal<=1.0The [facility] HospitalComment on above:Performed By: #### CRP, CK #### [facility] [address] [address] [address] Giacomo HuntLECTROLYTESon 61-07-8001Qxeex gap [Moles/Vol]11.8 mmol/LNormal The [facility] HospitalComment on above:Performed By: #### ELEC #### [facility] [address] [place] [address] Dr. Giacomo MaceChloride [Moles/Vol]104 mmol/UNbbfgp73-322KygKettering Health Dayton Comment on above:Performed By: #### ELEC #### [facility] [address] [place] [address] Dr. Giacomo MaceCO2 [Moles/Vol]27.5 mmol/VSdrqnd77.0-32.0[facility] Comment on above:Performed By: #### ELEC #### [facility] [address] [place] [address] Dr. Giacomo MacePotassium [Moles/Vol]4.3 mmol/LNormal3.5-5.1[facility] Comment on above:Performed By: #### ELEC #### [facility] [address] [place] [address] Dr. Giacomo MaceSodium [Moles/Vol]139 mmol/ZLridiz518-750Lir [facility] Comment on above:Performed By: #### ELEC #### [facility] [address] [place] [address] Dr. Giacomo MaceXR KUB 1 VIEWon 12-32-6764RZ KUB 1 VIEWEXAMINATION: XR KUB 1 VIEW [...] Electronically authenticated by: IVY DOMINGUEZ Date: 2022-04-18 08:04[facility] Vital Signs Date TimeVital SignValuePerforming FheasvxqiKkslfson59-95-8735 10:51-0400Body rbvyke426.8 cmBenjamin Ball DO Work Phone: [phone])[address] [place], [place] 8536210-09-2025 10:51-0400 Body mass index (BMI) [Ratio]26.5 kg/k4Kvqstiaw Ball DO Work Phone: 1(419)[address] [place], [place] 8536210-09-2025 10:51-0400 Body jlfmvyznuqj60.8 [degF]Timbo Ball DO Work Phone: 1419)[address] [place], [place] 8536210-09-2025 10:51-0400 Body rpabov63.91 kgBenjamin Ball DO Work Phone: 1419)[address] [place], [place] 8536210-09-2025 10:51-0400 Diastolic blood egglvgbe90 mm[Hg]Timbo Ball DO Work Phone: 1419)[address] [place], [place] 8536210-09-2025 10:51-0400 Heart rate67 /minBenjamin Ball DO Work Phone: 1(419)[address] [place], [place] 8536210-09-2025 10:51-0400 Respiratory rate16 /minBenjamin Ball DO Work Phone: 1419)[address] [place], [place] 8536210-09-2025 10:51-0400 SaO2% (BldA) [Mass fraction]97 %Timbo Ball DO Work Phone: 1419)[address] [place], [place] 8536210-09-2025 10:51-0400 Systolic blood ngkrbrad300 mm[Hg]Timbo Ball DO Work Phone: 1(419)[address] [place], [place] 8536209-19-2025 10:06-0400 Body cduuxo804.8 cmBenjamin Ball DO Work Phone: 1419)[address] [place], [place] 8536209-19-2025 10:06-0400 Body mass index (BMI) [Ratio]27.4 kg/o9Pibgbcme Ball DO Work Phone: 1419)[address] [place], [place] 8536209-19-2025 10:06-0400 Body aeqapq11.8 kgBenjamin Ball DO Work Phone: 1419)[address] [place], [place] 8536209-19-2025 10:06-0400 Diastolic blood mgteuidm62 mm[Hg]Timbo Ball DO Work Phone: 1(873)046-[address] [place], [place] 3217709-19-2025 10:06-0400 Heart rate72 /minBenjamin Ball DO Work Phone: [address] [place], [place] 8536209-19-2025 10:06-0400 Respiratory rate12 /minBenjamin Ball DO Work Phone: 1419)[address] [place], [place] 8536209-19-2025 10:06-0400 Systolic blood qjwjthca857 mm[Hg]Timbo Ball DO Work Phone: [address] [place], [place] 8536207-03-2025 11:18-0400 Diastolic blood ergfntdr15 mm[Hg]Timbo Ball DO Work Phone: [address] [place], [place] 8536207-03-2025 11:18-0400 Systolic blood nalzkwky53 mm[Hg]Timbo Ball DO Work Phone: 1(113)[address] [place], [place] 8536207-03-2025 11:07-0400 Body mewgmf247.8 cmBenjamin Ball DO Work Phone: 1(843)[address] [place], [place] 8536207-03-2025 11:07-0400 Body mass index (BMI) [Ratio]27.5 kg/i9Jtfinouq Ball DO Work Phone: 1(077)[address] [place], [place] 8536207-03-2025 11:07-0400 Body eltgprnkcoq01.1 [degF]Timbo Ball DO Work Phone: 1(479)[address] [place], [place] 8536207-03-2025 11:07-0400 Body iyypos01.08 kgBenjamin Ball DO Work Phone: 1(360)[address] [place], [place] 8536207-03-2025 11:07-0400 Heart rate51 /minBenjamin Ball DO Work Phone: 1(840)[address] [place], [place] 8536207-03-2025 11:07-0400 SaO2% (BldA) [Mass fraction]99 %Timbo Ball DO Work Phone: 1(817)[address] [place], [place] 8536205-09-2025 10:15-0400 Body rpizig989.8 cmBenjamin Ball DO Work Phone: 1419)[address] [place], [place] 8536205-09-2025 10:15-0400 Body mass index (BMI) [Ratio]27.6 kg/y3Lsqekxcr Ball DO Work Phone: 1(419)[address] [place], [place] 8536205-09-2025 10:15-0400 Body sdzibp77.14 kgBenjamin Ball DO Work Phone: 1(419)[address] [place], [place] 8536205-09-2025 10:15-0400 Diastolic blood hqmrxyyb39 mm[Hg]Timbo Ball DO Work Phone: 1(419)[address] [place], [place] 8536205-09-2025 10:15-0400 Heart rate76 /minBenjamin Ball DO Work Phone: 1(419)[address] [place], [place] 8536205-09-2025 10:15-0400 Respiratory rate12 /minBenjamin Ball DO Work Phone: 1(419)[address] [place], [place] 8536205-09-2025 10:15-0400 Systolic blood mexucqkv362 mm[Hg]Timbo Ball DO Work Phone: 1(419)[address] [place], [place] 8536202-19-2025 10:21-0500 Body hzvpna550.8 cmBenjamin Ball DO Work Phone: 1(419)[address] [place], [place] 8536202-19-2025 10:21-0500 Body mass index (BMI) [Ratio]27.2 kg/j8Kpwwxbic Ball DO Work Phone: 1(419)[address] [place], [place] 8536202-19-2025 10:21-0500 Body kgccsmuzwle82.1 [degF]Timbo Ball DO Work Phone: 1(419)[address] [place], [place] 8536202-19-2025 10:21-0500 Body .18 kgBenjamin Ball DO Work Phone: 1(419)[address] [place], [place] 8536202-19-2025 10:21-0500 Diastolic blood rekzvyis28 mm[Hg]Timbo Ball DO Work Phone: 1(419)[address] [place], [place] 8536202-19-2025 10:21-0500 Heart rate47 /minBenjamin Ball DO Work Phone: 1(419)[address] [place], [place] 8536202-19-2025 10:21-0500 SaO2% (BldA) [Mass fraction]96 %Timbo Ball DO Work Phone: 1(419)[address] [place], [place] 8536202-19-2025 10:21-0500 Systolic blood qgakmnai104 mm[Hg]Timbo Ball DO Work Phone: 1(419)[address] [place], [place] 8536201-16-2025 10:32-0500 Body bjnizo790.8 cmBenjamin Ball DO Work Phone: 1(419)[address] [place], [place] 8536201-16-2025 10:32-0500 Body mass index (BMI) [Ratio]28.1 kg/y4Nbmkbths Ball DO Work Phone: 1(419)[address] [place], [place] 8536201-16-2025 10:32-0500 Body tcmcnlkclmi24.8 [degF]Timbo Ball DO Work Phone: 1(419)[address] [place], [place] 8536201-16-2025 10:32-0500 Body .9 kgBenjamin Ball DO Work Phone: 1(419)[address] [place], [place] 8536201-16-2025 10:32-0500 Diastolic blood mm[Hg]Timbo Ball DO Work Phone: 1(419)[address] [place], [place] 8536201-16-2025 10:32-0500 Heart rate74 /minBenjamin Ball DO Work Phone: 1(419)[address] [place], [place] 8536201-16-2025 10:32-0500 Systolic blood vboamkfn866 mm[Hg]Timbo Ball DO Work Phone: 1(419)[address] [place], [place] 8536212-19-2024 15:02-0500 Body jcymvy731.8 cmBenjamin Ball DO Work Phone: 1(419)[address] [place], [place] 8536212-19-2024 15:02-0500 Body mass index (BMI) [Ratio]28.1 kg/h7Czdoocpu Ball DO Work Phone: 1(419)[address] [place], [place] 8536212-19-2024 15:02-0500 Body fhbrju43.96 kgBenjamin Ball DO Work Phone: 1419)[address] [place], [place] 8536212-19-2024 15:02-0500 Diastolic blood bbgxuieb18 mm[Hg]Timbo Ball DO Work Phone: 1419)[address] [place], [place] 8536212-19-2024 15:02-0500 Heart rate69 /minBenjamin Ball DO Work Phone: 1(419)[address] [place], [place] 8536212-19-2024 15:02-0500 Respiratory rate12 /minBenjamin Ball DO Work Phone: 1419)[address] [place], [place] 8536212-19-2024 15:02-0500 Systolic blood ahyufufs354 mm[Hg]Timbo Ball DO Work Phone: 1(672)[address] [place], [place] 8536212-17-2024 09:00-0500 Body edpher282.8 cmBenjamin Ball DO Work Phone: 1419)[address] [place], [place] 8536212-17-2024 09:00-0500 Body mass index (BMI) [Ratio]28.3 kg/x7Gyvvrpsk Ball DO Work Phone: 1(899)[address] [place], [place] 8536212-17-2024 09:00-0500 Body .35 kgBenjamin Ball DO Work Phone: 1(958)[address] [place], [place] 8536212-17-2024 09:00-0500 Diastolic blood ireyqnzj11 mm[Hg]Timbo Ball DO Work Phone: 1(419)[address] [place], [place] 8536212-17-2024 09:00-0500 Heart rate73 /minBenjamin Ball DO Work Phone: 1419)[address] [place], [place] 8536212-17-2024 09:00-0500 Respiratory rate18 /minBenjamin Ball DO Work Phone: 1419)[address] [place], [place] 8536212-17-2024 09:00-0500 SaO2% (BldA) [Mass fraction]96 %Timbo Ball DO Work Phone: 1(496)[address] [place], [place] 8536212-17-2024 09:00-0500 Systolic blood mm[Hg]Timbo Ball DO Work Phone: 1(735)[address] [place], [place] 8536212-09-2024 13:22-0500 Diastolic blood vxejlztu50 mm[Hg]Timbo Ball DO Work Phone: 1(000)[address] [place], [place] 8536212-09-2024 13:22-0500 Heart rate60 /minBenjamin Ball DO Work Phone: 1(513)[address] [place], [place] 8536212-09-2024 13:22-0500 Respiratory rate16 /minBenjamin Ball DO Work Phone: 1(308)[address] [place], [place] 8536212-09-2024 13:22-0500 SaO2% (BldA) [Mass fraction]97 %Timbo Ball DO Work Phone: 1(123)[address] [place], [place] 8536212-09-2024 13:22-0500 Systolic blood ijlcgmqx505 mm[Hg]Timbo Ball DO Work Phone: 1(598)[address] [place], [place] 8536212-09-2024 11:10-0500 Inhaled oxygen flow rate4 L/minBenjamin Ball DO Work Phone: 1(952)[address] [place], [place] 8536212-09-2024 09:08-0500 Body .8 cmBenjamin Ball DO Work Phone: 1(176)[address] [place], [place] 8536212-09-2024 09:08-0500 Body yxnhkd13 kgBenjamin Ball DO Work Phone: 1(261)[address] [place], [place] 8536211-25-2024 11:45-0500 Diastolic blood gbrdvvai38 mm[Hg]Timbo Ball DO Work Phone: 1(390)[address] [place], [place] 8536211-25-2024 11:45-0500 Heart rate60 /minBenjamin Ball DO Work Phone: 1(160)[address] [place], [place] 8536211-25-2024 11:45-0500 Respiratory rate16 /minBenjamin Ball DO Work Phone: 1(927)[address] [place], [place] 8536211-25-2024 11:45-0500 SaO2% (BldA) [Mass fraction]95 %Timbo Ball DO Work Phone: [facility]11-25-2024 11:45-0500 Systolic blood qdwooith95 mm[Hg]Timbo Ball DO Work Phone: [facility]11-25-2024 09:30-0500 Inhaled oxygen flow rate4 L/minBenjamin Ball DO Work Phone: [facility]11-25-2024 07:36-0500 Body zzncwo027.8 cmBenjamin Ball DO Work Phone: [facility]11-25-2024 07:36-0500 Body jduaga72.45 kgBenjamin Ball DO Work Phone: [facility]11-11-2024 11:23-0500 Blood Pressure LocationPatricfelicia its learning [facility]11-11-2024 11:23-0500Diastolic blood zgnjkkpa43 mm[Hg]Salome HILLS [facility]11-11-2024 11:23-0500Heart rate67 /minPatrick its learning [facility]11-11-2024 11:23-0500Respiratory rate18 /minPatrick HILLS [facility]11-11-2024 11:23-0500Systolic blood kffopveo87 mm[Hg]Salome HILLS [facility]10-22-2024 11:00-0400Body snnzee267.8 cmDO Timbo Ball Work Phone: [facility]10-22-2024 11:00-0400 Body mass index (BMI) [Ratio]28.5 kg/m2DO Timbo Ball Work Phone: [facility]10-22-2024 11:00-0400 Body ekuvoi57.43 kgDO Timbo Ball Work Phone: 1(823)050-26[facility]10-22-2024 11:00-0400 Diastolic blood ovfsffmo40 mm[Hg]DO Timbo Ball Work Phone: 1(496)160-19[facility]10-22-2024 11:00-0400 Heart rate69 /minDO Timbo Ball Work Phone: 1(854)702-48[facility]10-22-2024 11:00-0400 Respiratory rate12 /minDO Timbo Ball Work Phone: 1(658)836-[address] [place], [place] 3217710-22-2024 11:00-0400 Systolic blood blnhjiue849 mm[Hg]DO Timbo Ball Work Phone: 1(324)066-29[facility]10-16-2024 09:46-0400 Diastolic blood jriwrpqe78 mm[Hg]DO Timbo Ball Work Phone: 1(673)361-70[facility]10-16-2024 09:46-0400 Heart rate68 /minDO Timbo Ball Work Phone: 1(305)964-[address] [place], [place] 3217710-16-2024 09:46-0400 Systolic blood xpqqvvas458 mm[Hg]DO Timbo Ball Work Phone: 1(545)616-62[facility]10-07-2024 14:15-0400 Body ecgxvs207.8 cmCinc[facility]rin[facility]10-07-2024 14:15-0400Body mass index (BMI) [Ratio]28.4 kg/f4JxvobopibCincinnati Shriners Hospital10-07-2024 14:15-0400Body .81 kgCincinnati Shriners Hospital10-07-2024 14:15-0400Diastolic blood bjzifyzw56 mm[Hg][facility] 08-16-2024 14:15-0400Heart rate71 /[facility] 08-16-2024 14:15-0400Respiratory rate18 /[facility] 08-16-2024 14:15-6448LsW1% (BldA) [Mass fraction]94 %[facility]10-07-2024 14:15-0400Systolic blood fkedlsii966 mm[Hg][facility]08-21-2024 10:03-0400Body nhjuqu994.8 cmDO Timbo Ball Work Phone: 1(083)[address]08-21-2024 10:03-0400 Body mass index (BMI) [Ratio]28.5 kg/m2DO Timbo Ball Work Phone: 1(570)[address]08-21-2024 10:03-0400 Body oxlhsb03.43 kgDO Timbo Ball Work Phone: 1(661)[address] [place], [place] 8536208-21-2024 10:03-0400 Diastolic blood ruotpugk94 mm[Hg]DO Timbo Ball Work Phone: 1(846)[address]08-21-2024 10:03-0400 Heart rate80 /minDO Timbo Ball Work Phone: 1(742)[address]08-21-2024 10:03-0400 Respiratory rate12 /minDO Timbo Ball Work Phone: 1(484)[address]08-21-2024 10:03-0400 Systolic blood gahprjpt437 mm[Hg]DO Timbo Ball Work Phone: 1(367)[address]06-27-2024 12:38-0400 Body mscaez036.8 cmDO Timbo Ball Work Phone: 1(139)[address]06-27-2024 12:38-0400 Body mass index (BMI) [Ratio]29 kg/m2DO Timbo Ball Work Phone: 1(852)[address]06-27-2024 12:38-0400 Body egwrloooawy55.3 [degF]DO Timbo Ball Work Phone: 1(650)[address]06-27-2024 12:38-0400 Body .62 kgDO Timbo Ball Work Phone: 1(710)[address] [place], [place] 8536206-27-2024 12:38-0400 Diastolic blood mm[Hg]DO Timbo Ball Work Phone: [facility]06-27-2024 12:38-0400 Heart rate62 /minDO Timbo Ball Work Phone: [facility]06-27-2024 12:38-0400 SaO2% (BldA) [Mass fraction]90 %DO Timbo Ball Work Phone: [facility]06-27-2024 12:38-0400 Systolic blood noyiuiuc980 mm[Hg]DO Timbo Ball Work Phone: [facility]05-06-2024 11:40-0400 Body nohkyd794.8 cmCincinnati [facility]rin[facility] Hospital05-06-2024 11:40-0400Body mass index (BMI) [Ratio]29 kg/f0BsdofesqxCincinnati Shriners Hospital05-06-2024 11:40-0400Body sgzbug22.73 kgCincinnati Shriners Hospital05-06-2024 11:40-0400Diastolic blood ohhddltn31 mm[Hg][facility] 03-15-2024 11:40-0400Heart rate66 /[facility] 03-15-2024 11:40-0400Respiratory rate12 /[facility] 03-15-2024 11:40-0400Systolic blood rlqoimzs866 mm[Hg][facility]02-29-2024 14:10-0500Body .8 cmC[facility] 01-08-2024 14:10-0500Body mass index (BMI) [Ratio]28.8 kg/k0ApwuxylzdCincinnati Shriners Hospital02-29-2024 14:10-0500Body oxpjmi02.94 kgCincinnati Shriners Hospital01-12-2024 10:30-0500Body tjgepx998.8 cmBenjamin Ball Other [employer] Other 01-12-2024 10:30-0500Body mass index (BMI) [Ratio] 29.12 kg/m9Gnmdgyec Ball Other [employer] Other 01-12-2024 10:30-0500Body nxibij91.08 kgBenjamin Ball Other [employer] Other 01-12-2024 10:30-0500Diastolic blood lwwzvyvd78 mm[Hg] Timbo Ball Other [employer] Other 01-12-2024 10:30-0500Respiratory rate12 /minBenjamin Ball Other [employer] Other 01-12-2024 10:30-0500Systolic blood vmfpiodu045 mm[Hg] Timbo Ball Other [employer] Other 11-15-2023 11:00-0500Body ydtapy535.8 cmBenjamin Ball Other [employer] Other 11-15-2023 11:00-0500Body mass index (BMI) [Ratio] 28.69 kg/g4Twmbvcxw Ball Other [employer] Other 11-15-2023 11:00-0500Body javauv92.72 kgBenjamin Ball Other [employer] Other 11-15-2023 11:00-0500Diastolic blood xterhevw15 mm[Hg] Timbo Ball Other [employer] Other 11-15-2023 11:00-0500Respiratory rate12 /minBenjamin Ball Other [employer] Other 11-15-2023 11:00-0500Systolic blood mm[Hg] Timbo Ball Other [facility] [employer] Other [id number] 12:21-0400Blood Pressure LocationPatricfelicia HILLS [facility]10-16-2023 12:21-0400Diastolic blood iywunady40 mm[Hg]Salome HILLS [facility]10-16-2023 12:21-0400Heart rate80 /minPamirna HILLS [facility]10-16-2023 12:21-0400Respiratory rate16 /minPamirna HILLS [facility]10-16-2023 12:21-0400Systolic blood ihzoagnw226 mm[Hg]Salome HILLS [facility]06-03-2023 09:16-0400Body yjmuvnhnlof06 [degF]ANDERSON Ann Work Phone: [facility]06-03-2023 09:16-0400Body .45 kgPA Aury Ann Work Phone: [facility]06-03-2023 09:16-0400 Diastolic blood roeymfpx03 mm[Hg]ANDERSON Ann Work Phone: [facility]06-03-2023 09:16-0400Heart rate80 /minPA Aury Ann Work Phone: [facility]06-03-2023 09:16-0537AuM1% (BldA) [Mass fraction]96 %ANDERSON Ann Work Phone: [facility]06-03-2023 09:16-0400 Systolic blood jzdsoqfa080 mm[Hg]PA Aury Vasquezabi Work Phone: [facility]05-15-2023 12:00-0400Body .8 cmBenjamin Ball Other [employer] Other 05-15-2023 12:00-0400Body mass index (BMI) [Ratio] 28.44 kg/a8Ujztjsmg Ball Other [employer] Other 05-15-2023 12:00-0400Body uizqoz43.9 kgBenjamin Ball Other [employer] Other 05-15-2023 12:00-0400Diastolic blood eijxckxo01 mm[Hg] Timbo Ball Other [employer] Other 05-15-2023 12:00-0400Respiratory rate12 /minBenjamin Ball Other [employer] Other 05-15-2023 12:00-0400Systolic blood rrwtuxll178 mm[Hg] Timbo Ball Other [employer] Other 06-20-2022 14:30-0400Body zbwfue632.8 cmNiya Baker Other [employer] Other 06-20-2022 14:30-0400Body mass index (BMI) [Ratio] 28.69 kg/q1EpvjplNiya Baker Other [employer] Other 06-20-2022 14:30-0400Body rsyngmplnup05.3 [degF]Niya Baker Other [employer] Other 06-20-2022 14:30-0400Body spknyz04.72 kgNiya Baker Other [facility] [employer] Other 06-20-2022 14:30-0400Diastolic blood nandjdkq07 mm[Hg] Niya Baker Other [facility] [employer] Other 06-20-2022 14:30-0000VbA1% (BldA) [Mass fraction]98 % Niya Baker Other [facility] [employer] Other 06-20-2022 14:30-0400Systolic blood wirlhxvy281 mm[Hg] Niya Baker Other [facility] [employer] Other 06-10-2022 10:04-0400Blood Pressure LocationPatricPinyon Technologies [facility] 06-10-2022 10:04-0400Diastolic blood qcplcykg71 mm[Hg] Salome its learning [facility] 06-10-2022 10:04-0400Heart rate67 /minPatrick its learning [facility] 06-10-2022 10:04-0400Respiratory rate16 /minPatrick its learning [facility] 06-10-2022 10:04-0400Systolic blood ljuudtoq330 mm[Hg] Salome its learning [facility] Encounters Encounter DateEncounter TypeCare ProviderFacilityStart: 26-78-3316rdzqrjdolx Salome HILLSFacility:EU [place]vueStart: 09-15-2025 End: 77-79-6250Trmseze encounter procedureDandre Pittman MD-CT Scan [facility] Work Phone: Start: 09-15-2025 End: 11-09-8838kqxkduykvqJoephlsh Ball DO Work Phone: -CT Scan [facility] HealthcareStart: 08-29-2025 End: 51-22-0287neyatcbeywSuhxwzhVanessa Marcum MDFacility:PM [place] Start: 08-18-2025 End: 25-61-3850Tlwzucf encounter procedureDandre Pittman MD-Counts Include [address] Vascular Surg Work Phone: Start: 08-18-2025 End: 92-66-1791pamymywyluGshazscx Ball DO Work Phone: [facility] Work Phone: Start: 10-43-4870pxhexuvgovNvejulo WATERSFacility:EU [place]kyStart: 11-03-7606Fac-patient / Non-visitBenjamin Ball DO-[facility] Work Phone: Start: 07-29-2025 End: 94-37-7053sfztxeepxsQaogkocy Ball DO Work Phone: [facility] Work Phone: Start: 07-29-2025 End: 31-01-6402Mqodcnb encounter procedureBenjamin Ball DO-[facility] Work Phone: Start: 05-12-2025 End: 01-90-2364ssgilnetsdDuibkopg Ball DO Work Phone: [facility] Work Phone: Start: 05-12-2025 End: 96-42-2626Xeaixix encounter procedureMadeirdre Finnegan MD-[facility] Vascular Surg Work Phone: Start: 09-52-5745Hfv-patient / Non-visitBenjamin Ball DO-[facility] Work Phone: Start: 94-30-9180Qwvvvqa encounter procedureBenjamin Ball DO Work Phone: [facility]: 03-18-2025 End: 08-29-7911Ysnktag encounter procedureBenjamin Ball DO-[facility] Work Phone: Start: 12-29-2024 End: 54-26-6835sejzsmihieQejvtvpk Ball DO Work Phone: [facility] Work Phone: Start: 12-29-2024 End: 50-37-8095Uhqrfpx encounter procedureBenjamin Ball DO Work Phone: [facility] Work Phone: Start: 12-07-2024 End: 22-82-2242Fwtkbnw encounter procedureBenjamin Ball DO Work Phone: [facility]-Ul[facility]ound [place] Work Phone: Start: 12-07-2024 End: 96-14-0131opjvxzhjulZtieafjr Ball DO Work Phone: [facility] Work Phone: Start: 11-25-2024 End: 49-82-5102mkqxjkzimsKqvmcabk Ball DO Work Phone: [facility] Work Phone: Start: 11-25-2024 End: 50-56-2091Zdqdhwl encounter procedureBenjamin Ball DO Work Phone: [facility] Work Phone: Start: 38-73-2399Qqw-patient / Non-visitBenjamin Ball DO Work Phone: [facility] Work Phone: Start: 10-28-2024 End: 63-64-4700Zyfvlxu encounter procedureBenjamin Ball DO Work Phone: [facility] Work Phone: Start: 10-26-2024 End: 77-99-9530Oqyeobn encounter procedureBenjamin Ball DO Work Phone: [facility] Cardiology Work Phone: Start: 91-57-1182Lrv-patient / Non-visitBenjamin Ball DO Work Phone: [facility] Vascular Surg Work Phone: Start: 10-18-2024 End: 09-98-2092Xkiiptqdy to same day surgery centerBenjamin Ball DO Work Phone: [facility]-Interventional Rad[facility] Work Phone: Start: 10-18-2024 End: 91-49-7586ctvmlnvkkyCnebnyav BallFacility:[facility] Start: 12-40-4461Fxf-patient / Non-visitBenjamin Ball DO Work Phone: [facility] Vascular Surg Work Phone: Start: 10-04-2024 End: 84-38-6128Uwgshdnht to same day surgery centerBenjamin Ball DO Work Phone: [facility] Work Phone: Start: 10-04-2024 End: 84-41-5480lwsjswqvvcIxwuskod BallFacility:[facility] Start: 09-20-2024 End: 99-26-8762ukqimjqsdpHuggkou R WATERSFacility:EU [place]vueStart: 09-20-2024 End: 59-72-4145Alpqzsy encounter procedurePamirna HILLS [facility] Jose David start: 09-15-2024 End: 42-54-3681bqgspvaqijEH Timbo Abad Work Phone: [facility] Work Phone: Start: 09-15-2024 End: 42-44-6704Dvbolsn encounter procedureDO Timbo Abad Work Phone: [facility] Vascular Surgery Work Phone: Start: 08-31-2024 End: 14-01-9752xrafmvpffdXC Timbo Abad Work Phone: [facility] Work Phone: Start: 08-31-2024 End: 09-17-5544Raicfrz encounter procedureDO Timbo Abad Work Phone: [facility] Work Phone: Start: 08-26-2024 End: 52-50-3282ozjieahenvPS Timbo Abad Work Phone: [facility] Work Phone: Start: 08-26-2024 End: 67-37-6767Gmyhwdp encounter procedureDO Timbo Abad Work Phone: [facility] [place] Work Phone: Start: 08-25-2024 End: 64-53-4905lukojyizrmOL Timbo Abad Work Phone: [facility] Work Phone: Start: 08-25-2024 End: 86-82-5283Djclujk encounter procedureDO Timbo Abad Work Phone: [facility]Nuc Med [place] Work Phone: Start: 08-16-2024 End: 94-25-1042jtzawsmmtcHcxwgdrqd [facility] Work Phone: Start: 08-16-2024 End: 57-08-1140Kddqwin encounter procedureUn[facility] Cardiology Work Phone: Start: 06-30-2024 End: 33-52-2114tjapvscjlwLN Timbo Abad Work Phone: [facility] Work Phone: Start: 06-30-2024 End: 15-05-3710Mnjoaxb encounter procedureDO Timbo Abad Work Phone: [facility] Work Phone: Start: 05-06-2024 End: 10-42-8561gwishnpevsGV Timbo Abad Work Phone: [facility] Work Phone: Start: 05-06-2024 End: 66-80-3931Hvdfcmx encounter procedureDO Timbo Abad Work Phone: [facility] Vascular Surgery Work Phone: Start: 32-91-7164Mgr-patient / Non-visitDO Timbo Abad Work Phone: [facility] Work Phone: Start: 50-88-2409Ryf-patient / Non-visitDO Timbo Abad Work Phone: [facility] Work Phone: Start: 76-14-7581Uun-patient / Non-visitDO Timbo Abad Work Phone: [facility] Work Phone: Start: 03-15-2024 End: 71-75-4911yybsnhbahwWyirtesoiMagruder Hospital Work Phone: start: 03-15-2024 End: 82-57-1207Jvxchka encounter procedureRaecarilion [facility] Work Phone: Start: 02-11-2024 End: 09-28-3215eqaqfhefqgKBHSYWAX D GUANACOMesfin AvailableStart: 01-15-2024 End: 98-93-8669jvfyavmorjKMXTYXRVeterans Health Administrationtart: 01-08-2024 End: 00-23-5758Cgnwvyx encounter procedureUn[facility] Neurosurgery Work Phone: start: 90-05-6263Ojf-patient / Non-visitUnc Health [facility] Work Phone: Start: 12-17-2023 End: 95-91-3610hmwxgtgrcbLRNIWLRVeterans Health Administrationtart: 11-21-2023 End: 61-19-4284yiahfjwywtLxxuoccv Ball Other [employer] Other Start: 12-89-3241Jmnjzr outpatient visit 15 minutes Timbo BallFPG [facility] ClinicStart: 10-08-2023 End: 22-51-7781zapznxtlvrWxawwrwc Ball Other [employer] Other Start: 43-92-9422Hcdhhomnr encounterBenjamin BallFPG [facility] ClinicStart: 09-24-2023 End: 42-94-2658edoakmdifvDlzfjvsd Ball Other [employer] Other Start: 89-47-9704Pclnxx outpatient visit 25 minutes Timbo BallFPG [facility] ClinicStart: 31-01-1733Qvtrzb outpatient visit 15 minutesMatthew LangenbergFPG Vascular SurgeryStart: 09-04-2023 End: 87-59-6295mhcclwottkJM Timbo Ball Work Phone: [employer] Other Start: 09-04-2023 End: 24-95-5167Xfsqfju encounter procedureDO Timbo Ball Work Phone: [facility]ascularStart: 08-25-2023 End: 67-27-6285Xxdvzeh encounter procedurePamirna Clint HILLS [facility] Jose David start: 2023 End: 57-35-4184llsokzddekWnhhdu [employer] Other [employer] Other Start: 11-99-8951Nuforqobo encounterNiya Abad Medical ClinicStart: 05-22-2023 End: 34-29-7421ywvfktphkqBuoawx R[employer] Other [facility] [employer] Other Start: 57-31-6792Rbqkyepra encounterNiya Abad Medical ClinicStart: 05-01-2023 End: 48-51-8873cxppamlorxLL Timbo Jenniffer Work Phone: [facility] Work Phone: Start: 05-01-2023 End: 54-19-1151Igcgndt encounter procedureDO Timbo Jenniffer Work Phone: [facility] VascularStart: 04-12-2023 End: 76-27-4349ohaukufjvoCN Aury Ann Work Phone: [facility] Work Phone: [phone]: 04-12-2023 End: 64-10-4234Ddytowj encounter procedurePA Aury Ann Work Phone: [facility] Urgent [facility] Work Phone: Start: 46-14-5436aqgwvmzkzwTUKrystin ABADFacility:H1 Start: 03-24-2023 End: 98-24-0509rptfbsshnxJfrsxhpj Ball Other [employer] Other start: 78-60-6476Nmemiyz encounter procedureBenkatina Abad Medical ClinicStart: 09-25-2022 End: 56-85-2948mjjbtwnrhxMF TIMBO ABADFacility:G9Vatjs: 07-09-2022 End: 01-89-2096xozyavrktdCIFGEOG TUCKERFacility:D1Zbgwn: 04-29-2022 End: 18-73-7237uwtxjlokweQzkmop [employer] Other [facility] [employer] Other Start: 50-02-0247Tngeth-up encounterNiya Lewis Vascular SurgeryStart: 04-29-2022 End: 97-70-8731Kkyteau encounter procedureDO Timbo Abad Work Phone: [facility] VascularStart: 04-27-2022 End: 79-90-4933xiuzanrbneRQ TIMBO ABADFacility:X3Daxwx: 04-19-2022 End: 23-27-4096Lkghxrs encounter procedurePamirna HILLS [facility] start: 04-18-2022 End: 79-99-6443hiadubagcbGE SALOME HILLS .Facility:P2Imjnp: 03-87-1233Byrzm health examinationMaselect medical [facility] Kain Other [facility] [employer] Other Procedures DateProcedureProcedure DetailPerforming ClinicianStart: 67-94-0183RC angiography of headBenjamin Ball DO Work Phone: Start: 47-76-6317NC angiography of neck vessels Timbo Ball DO Work Phone: Start: 22-87-6627Rdgem brachial pressure indexBenjamin Ball DO Work Phone: Start: 19-77-1495Cuxoixy ultrasonography of bilateral carotid arteriesBenjamin Ball DO Work Phone: Start: 83-61-6884Iheqs volume recorder plethysmography Timbo Abad DO Work Phone: Start: 07-03-9516IklhjglwwnrIugfmijd Ball DO Work Phone: Start: 06-42-9312Yracp limb angiographyBenkatina Abad DO Work Phone: Start: 40-38-7759Nenzg volume recorder plethysmography DO Timbo Abad Work Phone: Start: 93-32-4157Scgthkwizhhl myocardial perfusion stress studyDO Timbo Shippable Work Phone: Start: 20-45-3312Kvijfuc ultrasonography of bilateral carotid arteriesDO Timbo Shippable Work Phone: Start: 83-26-3181Fuvzf brachial pressure indexDO Timbo Shippable Work Phone: Start: 01-89-8301Teyvgoywpyfccm shockwave lithotripsy of calculus of kidneyPatrick HILLS Start: 80-27-9654Fhg BPA Aury Shehorn Work Phone: Start: 07-69-1333Bnhqk StrepPA Aury Shehorn Work Phone: Start: 89-47-9998Synyrwmaqkyisb shockwave lithotripsy of calculus of kidneyPatrick HILLS Start: 42-58-8905VtlbkkoxpoEplpeha HILLS Start: 52-52-5441Ptraiaawqaa removal of ureteric stent Salome HILLS Start: 11-69-2010Ndxszcfkftq insertion of ureteric stentPatrick HILLS Start: 45-39-3549Hgfxytxjq for malignant neoplasm of colonMohansic State Hospitallyssa Finnegan Other Start: 96-10-4428Wbindfzrvyqixp shockwave lithotripsy of calculus of kidneyPatricfelicia its learning Comment on above:w/ left stent removalStart: 03-25-2016 Lithotripsy using laserCelsius Game Studios Comment on above:Cystoscopy/Urethreal dilateion/Left stent placement/ Holmium laser of left prostatic calculus/StoneextractionStart: 94-32-0562Hlufzqth artery bypass graftPamirna its learning Start: 80-43-2989Cqhhxexg artery stent (physical object)Salome HILLS Start: 20-35-0316TftdybpclxIgelsom WATERS Start: 87-42-1520WeriftdzgbTclsgdq WATERS Start: 77-72-6536Kvlsizxotzgee prostatectomyAppointeddfelicia its learning Comment on above:w/ CystoscopyStart: 11-10-2001 Transrectal biopsy of prostate using ultrasound guidanceAndersonAmerican Apparel CystoscopyCelsius Game Studios Depression screeningMattlyssa Finnegan Other HemorrhoidectomyCelsius Game Studios Herniated structure (morphologic abnormality)Salome HILLS History of coronary artery bypass graftingS/P CABG (coronary artery bypass graft)Timbo Abad DO Work Phone: Urodynamic studiesCelsius Game Studios Plan of Treatment DateCare ActivityDetailAuthorStart: 02-68-8007Soynz brachial pressure indexUS ankle/arm indicesUniversity Hospitals Portage Medical Centertart: 11-21-6860Txwqswq ultrasonography of bilateral carotid arteriesUS carotid doppler BIFChildren's Hospital of Columbustart: 72-60-5622Kxbla volume recorder plethysmography [facility] Centertart: 73-16-0600IjvontjwbUniversity Hospitals Portage Medical Centertart: 42-63-5755HvhpbfxsiUniversity Hospitals Portage Medical Centertart: 73-92-7563Zcvpy volume recorder plethysmographyUniversity Hospitals Portage Medical Centertart: 28-12-1264Xbnbneeabxcg myocardial perfusion stress studyNM charito perf SPECT rest & strUniversity Hospitals Portage Medical Centertart: 48-68-0401AitjkijyxUniversity Hospitals Portage Medical Centertart: 56-44-8435Vuwavwe [facility] Work Phone: Start: 95-96-4234Eorxlfu ultrasonography of bilateral carotid arteriesUS carotid doppler [facility] Centertart: 24-97-3206BZ.doppler Carotid arteries - [facility] Centertart: 27-56-7309Hjminqx [facility] Work Phone: Start: 94-85-8362Mvzqfdg ultrasonography of bilateral carotid arteriesUS carotid doppler [facility] Centertart: 80-34-0704VT.doppler Carotid arteries - [facility] Centertart: 85-38-6374Ndyhxwv ultrasonography of bilateral carotid arteriesUS carotid doppler [facility] HospitalAnkle brachial pressure index [facility] HospitalComprehensive metabolic 1999 panel - Serum or [facility] CenterComprehensive metabolic 1999 panel - Serum or [facility] CenterComprehensive metabolic 1999 panel - Serum or [facility] Medical CenterPatient EducationIndiana University Health [facility] Work Phone: Patient [facility] Work Phone: US.doppler Carotid arteries - [facility] HospitalUS.doppler Carotid arteries -[facility] HospitalXR Lumbar spine 4 ViewsMills-[facility] Immunizations Immunization DateImmunizationNotesCare FjclyrizRxenqcbn53-67-7638qddqujwyf, high dose seasonal, preservative-freeBenjamin Ball DO Work Phone: [facility]09-06-2024influenza virus vaccine, unspecified formulationPatrick HILLS [facility]09-20-2023influenza virus vaccine, unspecified formulationPaAmerican Apparel [facility]09-25-2022COVID-19 Pfizer (bivalent)Timbo Ball Other [facility]09-25-2022influenza virus vaccine, unspecified formulationPaAmerican Apparel [facility]09-25-2022influenza, high dose seasonal, preservative-freeBenkatina Abad Other [place] [employer] Other [id number]-89 PfizerBegokul Abad Other [facility]04-14-2022SARS-CoV-2 mRNA (mmlonzuhnkc-kpaf-wozqyfg) vaccinePaAmerican Apparel [facility]10-28-2021zoster vaccine recombinantBenkatina Abad Other [facility]10-01-2021influenza virus vaccine, unspecified formulationPaAmerican Apparel [facility] [id number]-32 Vaccine Pfizer - Documentation Purposes OnlyBenjamin Ball Other [facility] ShawComment on above:Result Comment: 2023-04-21: [id number] virus vaccine, unspecified formulationPaAmerican Apparel [facility]07-07-2021zoster vaccine recombinantBenjazelalem Abad Other [facility]03-02-2021COVID-19 Vaccine Pfizer - Documentation Purposes OnlyBenkatina Ball Other [facility] on above:Result Comment: 2023-04-21: [id number]-97 Vaccine Pfizer - Documentation Purposes OnlyBenkatina Abad Other [facility] on above:Result Comment: 2023-04-21: [id number] virus vaccine, unspecified formulationPaAmerican Apparel [facility]10-11-2019influenza virus vaccine, split virus (incl. purified surface antigen)Jaylon Finnegan Other [employer] Other [id number] virus vaccine, unspecified formulationC[facility]innati [facility]riners Hospital10-01-2019influenza virus vaccine, unspecified formulationPaAmerican Apparel [facility]04-12-2019pneumococcal polysaccharide vaccine, 23 valentBenjamin Ball Other [facility]11-12-2018influenza virus vaccine, unspecified formulationPaAmerican Apparel [facility]10-10-2018influenza virus vaccine, split virus (incl. purified surface antigen)Jaylon Finnegan Other [employer] Other [id number] virus vaccine, unspecified formulationC[facility]innati [facility]ers Hospital04-09-2018pneumococcal conjugate vaccine, 13 valentBenkatina Abad Other [facility]10-24-2017influenza virus vaccine, unspecified formulationPaAmerican Apparel [facility]10-19-2016influenza virus vaccine, unspecified formulationPaAmerican Apparel [facility]10-13-2015influenza virus vaccine, unspecified formulationPaAmerican Apparel [facility]10-10-2013influenza virus vaccine, unspecified formulationCelsius Game Studios [facility] Payers DatePayer CategoryPayerPolicy [id number] Health [id number] [id number] 1960Medicare [id number] Health [id number] 2..1.720909.3.57[id number] 2..1.984519.3.57[id number] 2..1.603861.3.57[id number] 2.16.840.1.968932.3.57[id number] 2.16.840.1.659716.3.57[id number] 2.16.840.1.252169.3.57[id number] 2.16.840.1.591999.3.57[id number] 2.16.840.1.051400.3.579.[id number] 2.16.840.1.3[id number] 2.16.840.1.315152.3.579.2.531 [id number] 2.16.840.1.0[id number] 2.16.840.1.8[id number] 2.16.840.1.830099.3.579.2.531 [id number] 2.16.840.1.4[id number] 2.16.840.1.802991.3.579.2.531 Social History DateTypeDetailFacilityStart: 08-27-2021 End: 23-30-4551Ixpsxla smoking statusEx-smoker (finding)[facility] sex [facility]igned At [facility] start: 30-80-6483Bcj Assigned At [facility] Hospitaltart: 83-74-3618YpkyaXlfctwCleveland Clinic Fairview Hospitaltart: 66-50-54858ZayqscCentervilletart: 76-11-0308Hxxhazm smoking status NHISNever smoked tobacco (finding)[facility] Centertart: 11-25-2024 End: 42-79-1108QdiZsfz (finding)[facility] Medical Equipment Procedure CodeEquipment CodeEquipment Original TextEquipment IdentifierDates Angiogram, lower extremity, leftMultiple peripheral artery stent, bare-metal [id number] FDAStart: 10-04-2024 Functional Status HmeyDptyrgfmspXwfehqEbhxfrrv34-99-8660Uuelgjnrun StatusN/AExec[facility] of [facility]10-16-2023Functional StatusN/AExec[facility] Clinical Notes 04-19-2022 to 09-15-2025 Note Date & CvfkUwjgKzixkmlz73-37-6706 Radiology Diagnostic [facility]MER[facility] [address] CT Scan Report Signed Patient: Max Friedman MR#: [id number] : 1940 Acct:[id number] Age/Sex: 85 / M ADM Date: 5 Loc: CT Room: Type: [facility] Attending Dr: Dandre Degroot MD Copies to: Dandre Degroot MD~ Ordering Provider: Dandre Degroot MD Date of Service: 09/15/25 CT/CT angio neck: I65.23 - Occlusion and stenosis of bilateral carotid avila... ([id number]) CT/CT angio head: I65.23 - Occlusion and [...] within the region of the V1 and Y6bhbdwqni and and normal contrast opacification V4 and [...] Santoyo M.D. 09/15/2025 4:26 PM Dictation Location: [place] [address] Transcribed By: [facility] 09/15/25 1626 Dictated By: Garret Santoyo MD 09/15/25 1612 Signed By: 09/15/25 1626 [facility] Work Phone: 1(977) 930-652009-19-2025 Evaluation note* Diagnosis Onset Date Resolution Status [...] (peripheral artery disease)acute August 18, 2025 10:25am [facility] Work Phone: 1(638) 849-735407-03-2025 Evaluation note* Diagnosis Onset Date Resolution Status Admit Date Right-sided extracranial carotid artery stenosis acuteJuly 2024 10:37amAnemiaacuteSept2024 9:59amASHD (arteriosclerotic heart disease)acuteSept2024 9:59am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acuteSept2024 9:59amCarotid stenosis, bilateralacuteSept2024 9:59amChronic heart failure with preserved ejection fraction (HFpEF)acuteSept2024 9:59amChronic kidney diseaseacuteSept2024 9:59amHypercholesterolemia acuteSept2024 9:59amHypertensionacuteSept2024 9:59am Primary insomniaacuteSept2024 9:59amSubclinical hypothyroidismacute July 29, 2025 9:59am [facility] Work Phone: 1(242) 204-340807-03-2025 Radiology Diagnostic study [facility] [address] [place] [address] Ultrasound Report Signed Patient: Max Friedman MR#: [id number] : 1940 Acct:[id number] Age/Sex: 84 / M ADM Date: 5 Loc: [facility] Room: Type: [facility] Attending Dr: Jaylon Finnegan MD Ordering Provider: [...] Finnegan MD,FACS,FSVS 05/12/2025 11:52 AM Dictation Location: [place] [address] Tech: Merle Donaldson Transcribed By: DANIEL 05/12/25 1152 Dictated By: Jaylon Finnegan MD 05/12/25 1151 Signed By: 05/12/25 1152 [facility] Work Phone: 1(738) 880-657407-03-2025 [facility] [address] [place] [address] Ultrasound Report Signed Patient: Max Friedman MR#: [id number] : 1940 Acct:[id number] Age/Sex: 84 / M ADM Date: 5 Loc: [facility] Room: Type: [facility] Attending Dr: Jaylon Finnegan MD Ordering Provider: [...] Finnegan MD,FACS,FSVS 05/12/2025 11:51 AM Dictation Location: [place] [address] Tech: Pam Sheehan Transcribed By: DANIEL 05/12/25 1151 Dictated By: Jaylon Finnegan MD 05/12/25 1151 Signed By: 05/12/25 1151 [facility] Work Phone: 1(368) 900-166805-09-2025 Evaluation note* Diagnosis Onset Date Resolution Status Admit Date ASHD (arteriosclerotic heart disease) acuteMay 2024 9:57am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acuteMay 2024 9:57amCarotid stenosis, bilateral acuteMay 2024 9:57amChronic heart failure with preserved ejection fraction (HFpEF)acuteMay 2024 9:57amChronic kidney diseaseacuteMay 2024 9:57am Elevated TSHacuteMay 2024 9:57amHypercholesterolemiaacuteMay 2024 9:57amHypertensionacuteMay 2024 9:57amMedicare annual wellness visit, subsequentacuteMarch 18, 2025 9:57amPrimary insomniaacuteMay 2024 9:57am [facility] Work Phone: 1([phone]) 828-511505-09-2025 Evaluation note* Diagnosis Onset Date Resolution Status [...] Right-sided extracranial carotid artery stenosisacuteJuly 2024 10:37am [facility] Work Phone: [phone]) 313-171812-09-2024 Evaluation note* Diagnosis Onset Date Resolution Status Admit Date PAD (peripheral artery disease) acuteDece2023 8:56amCarotid stenosis, bilateralacuteDece2023 8:58amChronic heart failure with preserved ejection fraction (HFpEF)acute October 26, 2024 8:58amCoronary artery disease involving [place] coronary artery of [place] heart wiacuteDece2023 8:58amNonrheumatic mitral (valve) stenosisacutece2023 8:58amPAD [...] 2024 9:58amRight leg claudication acuteJanuary 2024 9:58am [facility] Work Phone: 1([phone]) 463-503511-11-2024 Hospital Discharge instructions Patient Education 09/20/2024 12:11:28 Kidney Stones, Xjtk-ig-Mknx Kidney Stones Kidney stones are rock-like masses [...] Follow these instructions at home: Medicines Take esst-dix-nxqxupt and prescription medicines only as told by [...] provider. Document Revised: 06/20/2023 Document Reviewed: 06/20/2023 [employer] Patient Education 2023 [employer]. Follow Up Care 04/21/2023 10:27:24 With:REINIER HUSAIN, Salome Jaramillo, URL Address: [facility] [address], [place] [address]- [phone] When: Unknown Comments:1 yr w/ KUB [facility] [place] 11-11-2024 NotePatient Education Urology Kidney [...] these instructions at home: Medicines ??? Take xppp-ffm-yypkvxe and prescription medicines only as told by [...] Reviewed: 06/20/2023 Elsevier Patient Education ? 2023 [employer].[facility] 09-15-2024 Evaluation note* Diagnosis Onset Date Resolution Status Admit Date PAD (peripheral artery disease) acuteSeptember 15, 2024 11:48amPAD (peripheral artery disease)acuteDe2023 8:56amCarotid stenosis, bilateralacuteOctober 26, 2024 8:58amChronic heart failure with preserved ejection fraction (HFpEF)acuteOctober 26, 2024 8:58amCoronary artery disease involving [place] coronary artery of [place] heart wiacuteOctober 26, 2024 8:58amNonrheumatic mitral (valve) [...] disease)acuteJanuary 2024 9:58amRight leg claudicationacuteJanuary 2024 9:58am [facility] Work Phone: [phone]) [phone] Evaluation note* Diagnosis Onset Date Resolution Status [...] fraction (HFpEF) acutece2023 8:58amCoronary artery disease involving [place] coronary artery of [place] heart wiacutece2023 8:58amNonrheumatic mitral (valve) stenosisacutecember 2023 [...] 2:47pmHypertensionacuteDece2023 2:47pmPrimary insomniaacute October 28, 2024 2:47pm [facility] Work Phone: 1([phone]) 218-926703-07-2024 NotePatient here for 1 mo follow up [...] pain. All other systems reviewed and are negative.[facility] 01-15-2024 NoteCardiovascular Medicine [facility] SUBJECTIVE Chief Complaint Patient presents with Coronary Artery Disease Congestive Heart Failure Hypertension Hyperlipidemia Max Friedman is a 83 y.o. male here for follow-up. HPI PMHx: AVR 2014, CAD s/p CABG x1 2014, HTN, carotid stent by vascular surgeon in [place] (Dr. Cedillo) 01/15/2024 He notes that his [...] 7. Mild mitral va (more content not included)...[facility]02-07-2024 NotePatient here for 1 year [...] pain. All other systems reviewed and are negative.[facility] 12-17-2023 NoteCardiovascular Medicine [facility] SUBJECTIVE No chief complaint on file. Max Friedman is a 83 y.o. male here for follow-up. HPI PMHx: AVR 2014, CAD s/p CABG x1 2015, HTN, carotid stent by vascular surgeon in [place] (Dr. Cedillo) He works out a few [...] aortic stenosis by invasive hemodynamic study. 2. Cpxkesdu-tv-xqwbpo two-vessel coronary artery disease involving the left anterior descending and left circumflex coronary arteries. 3. Normal right-sided heart pressures and wedge pressure. 4. Normal cardiac output/cardiac index. 5. 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 (more content not included)...[facility]01-12-2024 Evaluation note* Encounter Date Diagnosis [...] a couple years. - previously referred to [facility] Neurosurgery but declined treatment [...] and feet daily for blisters and ulcerations. [employer] [facility] Other 11-15-2023 Evaluation note* Encounter Date Diagnosis [...] w/ serial Echocardiogram Control BP and HR [facility] Other 10-26-2023 Evaluation note* Encounter Date Diagnosis [...] pain which seems to be bothering him. [facility] Other 10-16-2023 Hospital Discharge instructions Patient Education [...] include: ?8 oz (237 mL) of milk, kjyqrwk-nyufznauievl-pwuse milk, and calcium- fortifiedfruit juice. Calcium-fortified means [...] ?Spinach (cooked), rhubarb, beets, sweet potatoes, and Zambian chard. ?Peanuts. ?Potato chips, burundian fries, and baked potatoes with skin on. ?Nuts and nut products. ?Chocolate. If you regularly take a diuretic medicine, make sure to eat at least 1 or 2 servings of fruits or vegetables that are high in potassium each day. These include: ?Avocado. ?Banana. ?[place]attnall, prune, carrot, or tomato juice. ?Baked potato. [...] magnesium, fish oil, or vitamin B6. Take ppuu-fbg-jsvhqhi and prescription medicines only as told by [...] Casseroles. Pizza. Lasagna. Frozen meals. Potato chips. Bolivian fries. The items listed above may not [...] provider. Document Revised: 07/08/2022 Document Reviewed: 07/08/2022 [employer] Patient Education 2022 [employer]. Follow Up Care 05/30/2023 13:07:47 With:REINIER HUSAIN, Salome Jaramillo, URL Address: [facility] [address], [place] [address]- When:Within 1 Year(s) Comments:w/MELQUIADES [facility] 05-15-2023 Evaluation note* Encounter Date Diagnosis Assessment [...] March,High risk medication use (ICD-10 - Z79.899) [facility] Other 06-20-2022 Evaluation note* Encounter Date Diagnosis [...] agrees with this plan, denies any questions. [facility] Other 06-10-2022 Hospital Discharge instructions Patient Education 04/19/2022 10:54:30 Kidney Stones, Uclg-vj-Iuhm Kidney Stones Kidney stones are rock-like masses [...] Follow these instructions at home: Medicines Take semk-jsn-ruzfcmt and prescription medicines only as told by [...] 04/14/2009 Document Revised: 03/14/2020 Document Reviewed: 03/14/2020 [employer] Patient Education 2019 [employer] Follow Up Care 08/27/2021 10:53:23 With:REINIER HUSAIN, Salome Jaramillo, URL Address: [facility] [address], [place] [address]- [phone] When:04/19/2023 [facility] evaluation + Plan note Future Appointments Appointment Date:04/21/2023 09:45:00 AM Scheduled Provider:Salome HILLS MD Location:[facility] Appointment Type:URO Office Visit [facility] evaluation + Plan note Future Appointments Appointment Date:08/30/2024 10:30:00 AM Scheduled Provider:Salome HILLS MD Location:[facility] Appointment Type:URO Office Visit [facility] evaluation + Plan note Future Appointments Appointment Date:09/26/2025 10:30:00 AM Scheduled Provider:Salome HILLS MD Location:[facility] Appointment Type:URO Office Visit [facility] evaluation noteNo assessment information available [facility] Work Phone: Evaluation note* Diagnosis Onset Date Resolution Status Viral URI acute [facility], [facility] Work Phone: Evaluation noteNo InformationNosaint joseph [facility] [employer] Other Evaluation note* Diagnosis Onset Date Resolution Status 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 acuteLeft foot dropacuteLumbar radiculopathy, chronicacuteSacroiliitis, not elsewhere classifiedacuteASHD (arteriosclerotic heart disease)acute 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acute Carotid stenosis, bilateralacuteChronic kidney diseaseacuteHypercholesterolemia acuteHypertensionacuteLumbar spondylosis with myelopathyacuteMedicare annual wellness visit, subsequentnoneactive [facility] Work Phone: evaluation note* Diagnosis Onset Date Resolution Status ASHD (arteriosclerotic heart disease) acute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 acuteCarotid stenosis, bilateralacuteChronic kidney diseaseacute HypercholesterolemiaacuteHypertensionacuteLumbar spondylosis with myelopathy acuteMedicare annual wellness visit, subsequentnoneactiveHistory of left common carotid artery stent placementacute [facility] Work Phone: evaluation note* Diagnosis Onset Date Resolution Status History of left common carotid artery st ent placement acuteASHD (arteriosclerotic heart disease)acute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acuteCarotid stenosis, bilateralacute Chronic kidney diseaseacuteHypercholesterolemiaacuteHypertensionacuteLumbar spondylosis with myelopathyacute [facility] Work Phone: evaluation note* Diagnosis Onset Date Resolution Status ASHD (arteriosclerotic heart disease) acute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 acuteCarotid stenosis, bilateralacuteChronic heart failure with preserved ejection fraction (HFpEF)acuteChronic kidney diseaseacuteHypercholesterolemia acuteHypertensionacuteLumbar spondylosis with myelopathyacuteNonrheumatic mitral (valve) stenosisacute [facility] Work Phone: evaluation note* Diagnosis Onset Date Resolution Status ASHD (arteriosclerotic heart disease) acute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 acuteCarotid stenosis, bilateralacuteChronic heart failure with preserved ejection fraction (HFpEF)acuteChronic kidney diseaseacuteHypercholesterolemia acuteHypertensionacuteLumbar spondylosis with myelopathyacuteNonrheumatic mitral (valve) stenosisacuteASHD (arteriosclerotic heart disease)acute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acuteCarotid stenosis, bilateralacuteChronic heart failure with preserved ejection fraction (HFpEF) acuteHypercholesterolemiaacuteHypertensionacute [facility] Work Phone: evaluation note* Diagnosis Onset Date Resolution Status ASHD (arteriosclerotic heart disease) acute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 acuteCarotid stenosis, bilateralacuteChronic kidney diseaseacute HypercholesterolemiaacuteHypertensionacuteLumbar spondylosis with myelopathy acuteMedicare annual wellness visit, subsequentnoneactive [facility] Work Phone: History general Narrative - Reported* Type Description Date Medical History carotid stenosis Medical HistoryHTNSurgical Historyheart valve [id number] Historyleft internal carotid angioplasty and [id number] [facility] Other History general Narrative - Reported* Type [...] History Nonrheumatic aortic (valve) stenosisSurgical Historyheart valve [id number] Surgical Historyleft internal carotid angioplasty and [id number] History [id number] [id number] [id number] HistoryESWL, KIDNEY, [id number] HistorySEE SURGICAL HX [facility] Other History general Narrative - Reported* Type [...] History Nonrheumatic aortic (valve) stenosisSurgical Historyheart valve [id number] Surgical Historyleft internal carotid angioplasty and [id number] History [id number] [id number] [id number] HistoryESWL, KIDNEY, [id number] HistoryESWL, right kidney05/2023 Hospitalization HistorySEE SURGICAL HX [facility] [employer] Other Hospital course Narrative No data available for this section [facility] progress note No data available for this section [facility] reason for referral (narrative)* Reason Referral for lumbar foraminal stenosis and left lower extremity weakness. 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 372) Referral Organization [facility] Referring Provider First Name Timbo Referring Provider Last Name Jenniffer Referring Provider Specialty Internal Me dicine Referred Organization [facility] Referred Provider Boby Mai [place] Address [address] [place], [place],[address] Referred Provider Specialty Neurological Surgery Referral Priority [...] Notes Include recent and p revious MRI [facility] [employer] Other Reason for referral (narrative)No reason for referral information availableShelby [facility] Work Phone: Chief Complaint and Reason [...] 2024 8:58am Coronary artery disease invo lving [place] coronary artery of [place] heart [place] October 26, 2024 8:58am Nonrheumatic [...] 2024 8:58am Coronary artery disease invo lving [place] coronary artery of [place] heart [place] October 26, 2024 8:58am Nonrheumatic [...] 07, 2024 1 2:50pm [facility]LLOW UP FROM [facility] December 29, 2024 10:14am Reason for Visit Admit Date PAD (peripheral artery disease) October 18, 2024 8:56am Carotid stenosis, bilateral October 8:58am Chronic heart failure with p reserved ejection fraction (HFpEF) October 26, 2024 8:58am Coronary artery disease invo lving [place] coronary artery of [place] heart [place] October 26, 2024 8:58am Nonrheumatic [...] Start: August 16, 2024 End: August 16, 2024Berhta Hutchins DOAttending ProviderActiveStart: August 16, 2024 End: [...] 06, 2024 End: May 06, 2024Niya Baker DEVELOPMENT WRITER-CAttending ProviderActiveStart: May 06, 2024 End: May 06, [...] 08, 2024 End: January 08, 2024Brisa Ireland DEVELOPMENT WRITER-CAttending ProviderActiveStart: January 08, 2024 End: January 08, 2024 Team Status: Inactive Member Role Status Dates Timbo Abad DO Primary Care Provider Active Juan Murillo ProviderActive Team Status: Inactive Member Role Status Dates ANDERSON Almaraz Attending Provider Active Team Status: Inactive Member Role Status Dates Timbo Abad DO Primary Care Provider Active Niya Baker DEVELOPMENT WRITER-CAttending ProviderActive Team Status: Active Member Role Status Dates Abimael Cruz MD Senior Qa Engineer Active ZEB Ludwigrimary Care ProviderActive Team Status: Inactive Member Role Status Dates Timbo Abad DO Primary Care Provider Active Start: August 25, 2024 End: August 25, 2024Ling Zain Hutchins DOAttending ProviderActiveStart: August 25, 2024 End: August 25, 2024Georyaiml Cruz MDReferring ProviderActive Start: August 25, 2024 [...] December 07, 2024 End: December 07, 2024Niya Bkaer DEVELOPMENT WRITER-CAttending ProviderActiveStart: December 07, 2024 End: December 07, [...] Member Role/Relationship Status Dates Abimael Cruz MD Senior Qa Engineer Active Timbo Abad , [facility] Care ProviderActive Team Status: Inactive Member [...] Status: Inactive Member Role/Relationship Status Dates Timbo Aabd DO Primary Care Provider Active Start: August [...] face for FREEMAN price- fax note to [phone] (unrecognized sect ion and content) No Status Records FoundNo Status Records FoundNo Status Records FoundNo Status Records FoundNo Status Records FoundNo Status Records Found INFORMATION SOURCE (unrecogn ized section and content) DATE CREATED AUTHOR 03/25/2023 [facility] DATE CREATED AUTHOR AUTHOR'S ORGANIZ ATION 01/16/2024 [facility] DATE CREATED AUTHOR AUTHOR'S ORGANIZ ATION 02/12/2024 [facility] DATE CREATED AUTHOR AUTHOR'S ORGANIZ ATION 08/18/2025 [facility] DATE CREATED AUTHOR AUTHOR'S ORGANIZ ATION 09/17/2025 [facility] DATE CREATED AUTHOR AUTHOR'S ORGANIZ ATION 09/23/2025 [facility] FOR RECORDS PERTAINING TO PATIENTS WHO ARE [...] BE BASED ON THE PRIMARY CLINICAL RECORDS. [facility] [employer] [facility]. provides no warranty or guarantee of the accuracy or completeness of information in this document.
[2025-11-08 09:51] LABS: Anion Gap 11.4; Blood Urea Nitrogen 16.0 mg/dL (7.0-18.0); Calcium 9.0 mg/dL (8.5-10.1); Carbon Dioxide 29.5 mmol/L (21.0-32.0); Chloride 107 mmol/L (98-107); Estimated GFR (African America >60 (>=60 mL/min/1.73m^2); Estimated GFR (Non-African Ame 55 (>=60 mL/min/1.73m^2); Glucose 111 mg/dL (74-106); NT Pro B Type Natriuretic Pept 275.0 pg/mL (<=1800.0); Potassium 3.9 mmol/L (3.5-5.1); Sodium 144 mmol/L (136-145)
== END 2025-11-08 09:08 | disposition home or self-care (01) ==
PROVIDERS: PCP Internal Medicine; Visit Provider Nurse Practitioner Family
DX: I50.32 Chronic diastolic (congestive) heart failure (principal)
CPT/HCPCS: 36415; 80048; 83880